=== PATIENT | female | born 1945 | race Caucasian/White ===

== ENCOUNTER → 2017-12-22 06:23 | Outpatient (CLI) | payer MEDICARE, SELFPAY ==
--- NOTE | 2017-12-22 06:26 | ECHOD_ITS ---
Reason For Study: Chest Pain Procedure This was a 2D Doppler, Color Flow transthoracic echocardiogram. Exam performed in department. Left Ventricle Normal LV size. Left ventricular systolic function is normal. The estimated ejection fraction is 65 %. No evidence for diastolic dysfunction. No regional wall motion abnormalities noted. Right Ventricle Normal RV size. Normal systolic function. Atria Normal left atrium. Normal right atrium. Mitral Valve There is mild mitral annular calcification. Tricuspid Valve Normal tricuspid valve. Mild (1+) tricuspid valve insufficiency. Pulmonary artery systolic pressure is 25 mmHg. Aortic Valve Trisinus/trileaflet aortic valve. Mild focal aortic valve calcification. Mean aortic valve gradient 10 mmHg. Mild aortic stenosis. Mild (1+) aortic valve insufficiency. Pulmonic Valve The pulmonic valve is not well visualized. Great Vessels Normal aortic root. The pulmonary artery is normal size. Normal inferior vena cava. Pericardium/Pleural No pericardial effusion. MMode/2D Measurements & Calculations LVIDd: 4.5 cm IVSd: 0.77 cm LVOT diam: 2.0 cm LVIDs: 2.2 cm LVPWd: 0.95 cm LVOT area: 3.1 cm2 RVDd: 3.0 cm FS: 49.9 % Ao root diam: 3.1 cm LAV(MOD-bp): 46.6 ml LA A4 area: 17.5 cm2 LA dimension: 4.5 cm LAV(MOD-bp) Indexed: 26.3 ml/m2 LAV(MOD-sp2): 48.7 ml LAV(MOD-sp4): 44.6 ml RA A4 area: 15.1 cm2 Time Measurements MV dec time: 0.19 sec Doppler Measurements & Calculations MV E max doug: 119.2 cm/sec Lat Peak E' Doug: 7.6 cm/sec Med Peak E' Doug: 8.1 cm/sec MV A max doug: 83.0 cm/sec E/E' lat: 15.8 E/E' med: 14.8 MV E/A: 1.4 MV V2 max: 124.2 cm/sec MV P1/2t max doug: 124.2 cm/sec Ao V2 max: 229.3 cm/sec MV max P.2 mmHg MV P1/2t: 103.5 msec Ao max P.0 mmHg MV V2 mean: 71.6 cm/sec MV dec slope: 351.6 cm/sec2 Ao V2 mean: 144.3 cm/sec MV mean P.3 mmHg MVA(P1/2t): 2.1 cm2 Ao mean P.4 mmHg MV V2 VTI: 43.7 cm Ao V2 VTI: 50.4 cm MVA(VTI): 2.2 cm2 JOSE(I,D): 1.9 cm2 JOSE(V,D): 1.7 cm2 AI max doug: 409.6 cm/sec LV V1 max: 125.7 cm/sec SV(LVOT): 95.6 ml AI max P.3 mmHg LV V1 max P.3 mmHg AI dec slope: 223.3 cm/sec2 LV V1 mean P.2 mmHg AI P1/2t: 537.3 msec LV V1 mean: 84.8 cm/sec LV V1 VTI: 30.6 cm PA V2 max: 92.3 cm/sec TR max doug: 226.8 cm/sec TR max P.6 mmHg Interpretation Summary Normal LV size. Left ventricular systolic function is normal. The estimated ejection fraction is 65 %. There is mild mitral annular calcification. Mild (1+) aortic valve insufficiency. Mild aortic stenosis. No evidence for diastolic dysfunction. Ordering Physician: Deric Stephens Referring Physician: Namita Hassan Performed By: Philly Obregon, LISA, RVT
--- NOTE | 2017-12-22 18:41 | STRESSREP ---
Stress Test Report Pharmacologic myocardial perfusion stress test. 72-year-old lady with a history of chest pain. Medications Vasotec Humulin Lipitor Tenormin Lasix. Stress protocol: Resting EKG demonstrates sinus bradycardia with a rate of 55 bpm. Right bundle branch block is noted. 0.4 mg of regadenoson was infused per usual protocol followed by rapid intravenous saline flush injection. Continuous EKG monitoring was performed. The maximum heart rate attained was 81 bpm which was 54% of the maximum predicted heart rate the maximum workload attained was 1 metabolic equivalent. At rest there were no ST or T-wave changes noted suggest ischemia at peak infusion no ST or T-wave changes were noted suggest ischemia. No clinical angina was noted. Resting blood pressure is 120/68 which remained flat throughout the recording. Myocardial perfusion protocol. 11.8 mCi of technetium 99m sestamibi was injected at rest. 0.4 mg regadenoson was infused per usual protocol. At peak infusion 34.1 mCi of technetium 99m sestamibi was injected. Stress images were obtained. Stress and rest images were reconstructed and compared in the short axis vertical long and horizontal long axis. Gated images were also obtained pre- Perfusion SPECT analysis. Review of the images demonstrate normal uptake of tracer noted in all areas of the myocardium on the stress and rest images to a similar extent. No areas of reversibility were noted to suggest ischemia. Gated SPECT analysis: The gated ejection fraction was over 80%. Conclusion: Normal pharmacologic myocardial perfusion stress test. Preserved ejection fraction.
--- NOTE | 2018-02-28 20:32 | ED.RN ---
PATIENT LEFT BAG FULL OF MEDICATIONS ON BENCH OUTSIDE ER INFORMATION GAINED IN ATTEMPT TO CALL HER
== END ==
PROVIDERS: Family Provider Internal Medicine; PCP Internal Medicine; Visit Provider Internal Medicine Cardiovascular Disease
DX: I25.10 Atherosclerotic heart disease of native coronary artery without angina pectoris (principal)
CPT/HCPCS: 78452; 93017; 93306; A9500; A4216; J2785

== ENCOUNTER 2018-07-08 03:05 | Emergency (ER) | payer MEDICARE, SELFPAY ==
[2018-07-08 03:10] VITALS: BP 191/79; PULSE 63; RESP 12; TEMP 36.8; O2SAT 97; BMI 31.1
--- NOTE | 2018-07-08 03:21 | EKG12_ITS ---
Test Reason : Blood Pressure : / mmHG Vent. Rate : 060 BPM Atrial Rate : 060 BPM P-R Int : 200 ms QRS Dur : 126 ms QT Int : 452 ms P-R-T Axes : 071 -59 -03 degrees QTc Int : 452 ms Normal sinus rhythm Right bundle branch block Left anterior fascicular block Bifascicular block Cannot rule out Inferior infarct (masked by fascicular block?) , age undetermined Abnormal ECG Confirmed by JAZZY ZAMORA, JUDI ([id number]), design editor SAL RUIZ ([id number]) on 07/13/2018 9:22:29 AM Referred By: DINO Confirmed By:JUDI PURCELL MD
--- NOTE | 2018-07-08 03:26 | ED.DCSUM_ITS ---
History of Present Illness Chief Complaint: General Illness Informant: Patient, Family Onset: Days - 4-5 Context: Gradual Onset Current Severity: Moderate Maximum Severity: Moderate Worsened by: nothing Relieved by: nothing Associated Symptoms: hi BS, malaise, nausea, prod cough, constant CP, lightheaded Narrative: Patient states she has been feeling ill for the past for 5 days and has noticed that her blood sugars are climbing. She occasionally forgets her medications, and states that that might of been why her blood sugars are high starting for 5 days ago. - Past Medical History (1) Old myocardial infarction Status: Chronic (2) Hypertension Status: Chronic (3) Nonrheumatic aortic (valve) insufficiency Status: Chronic (4) Type 2 diabetes mellitus Status: Chronic Past Medical History - Allergies and Home Meds Allergies/Adverse Reactions: Allergies No Known Allergies Allergy (Verified 07/08/18 03:12) Primary Care Physician: Namita Hassan MD [Primary Care Provider] - 3-5 Days Lives: With Family Smoking Status: Never smoker Review of Systems General: Reports: Malaise. Denies: Chills, Fever, Sweats Eyes: Denies: Visual changes - bilaterally, Diplopia ENT: Denies: Rhinorrhea, Sore throat Cardiovascular: Reports: Chest pain. Denies: Palpitations Respiratory: Reports: Dyspnea - Occasionally, Cough, Sputum - White. Nonbloody.. Denies: Dyspnea on exertion, Orthopnea, Paroxysmal nocturnal dyspnea Gastrointestinal: Reports: Nausea. Denies: Abdominal pain, Vomiting, Diarrhea, Melena, Hematochezia Genitourinary: Reports: Frequency. Denies: Dysuria, Hematuria Musculoskeletal: Denies: Neck pain, Back pain, Swelling, Extremity Pain Skin: Denies: Rash Neurological: Denies: Headache, Weakness, Numbness Psych: Denies: Suicidal thoughts, Suicidal ideations Endocrine: Reports: Polyuria, Polydipsia. Denies: Heat intolerance, Cold intolerance Allergy: Denies: Uticaria, Swelling of the mouth Physical Exam Vital Signs/Narrative: Vital Signs Temp Pulse Resp BP Pulse Ox 07/08/18 03:10 98.2 F 63 12 191/79 H 97 Inital Vital Signs reviewed: Yes General: Well nourished, Well developed, Unkempt - Live bedbugs found on patient Head: Normocephalic, Atraumatic Eyes: Perrl, EOMI ENT: No rhinorrhea, Dry mucous membranes - Partially Neck: Supple, Nontender, No lymphadenopathy Cardiovascular: Regular rate, Regular rhythm, No murmurs Respiratory: No distress, CTA bilaterally, Chest nontender Abdomen: Soft, Nontender, Nondistended, Normal bowel sounds Back: Nontender, Normal Inspection Extremities: Nontender, No edema Skin: Normal color, No rash Neurological: Alert, Oriented x3, Cranial nerves II-XII grossly intact, Normal Strength, Normal Sensation, Normal Gait Psychological: Normal affect Diagnostic/Tx/Re-eval Impressions Chest X-Ray 07/08/18 04:00 IMPRESSION: No acute pulmonary findings. Electronically Signed: Mihai Lemos MD at 5:50 EDT Tel , Service support , 07/08/18 04:00 Chest 1 View (Portable) [RAD] Stat Laboratory Results 07/08/18 07/08/18 07/08/18 Range/Units 03:40 03:40 04:29 WBC 7.9 (4.4-11.0) K/mm3 RBC 4.27 (4.2-5.4) M/mm3 Hgb 11.3 L (12.0-15.0) g/dl Hct 36.1 L (37-47) % MCV 84.5 (81-99) fL MCH 26.5 L (27.0-32.0) pg MCHC 31.3 L (32-36) g/gl RDW 14.5 (11.6-14.6) % RDW Differential 44.9 H (35.1-43.9) fl Plt Count 302 (150-450) K/mm3 MPV 10.2 (6.2-12.0) fl Immature Gran % (Auto) 0.100 (0.0-0.9) % Neut % (Auto) 69.2 (47-70) % Lymph % (Auto) 20.7 (19-41) % [place] % (Auto) 6.9 (0-10) % Eos % (Auto) 2.8 (0-5) % Baso % (Auto) 0.3 (0-1) % Absolute Neuts (auto) 5.5 (2.0-7.7) X10^3/uL Absolute Lymphs (auto) 1.64 (0.83-4.51) X10^3/ul Total Counted Not Reportable Sodium 133 L (136-145) mmol/L Potassium 3.7 (3.5-5.1) mmol/L Chloride 97 L (98-107) mmol/L Carbon Dioxide 30.0 (21.0-32.0) mmol/L Anion Gap 6 (5-15) BUN 15 (7-18) mg/dL Creatinine 0.93 (0.55-1.02) mg/dL Estim Creat Clear Calc 40.65 ml/min Est GFR (MDRD) Af Amer 76 (>60) mL/min Est GFR (MDRD) Non-Af 63 (>60) mL/min BUN/Creatinine Ratio 16.1 (10-20) RATIO Glucose 377 H (74-106) mg/dL Calcium 9.7 (8.5-10.1) mg/dL Troponin I < 0.015 (<0.045) ng/mL Urine Color Yellow (Yellow) Urine Clarity Clear (Clear) Urine pH 6.0 (5.0 - 8.0) Ur Specific [place] 1.010 (1.002-1.030) Urine Protein Negative (Negative) mg/dl Urine Glucose (UA) 1000 H (Normal) mg/dl Urine Ketones Negative (Negative) mg/dl Urine Occult Blood Negative (Negative) /ul Urine Nitrite Negative (Negative) Urine Bilirubin Negative (Negative) mg/dL Urine Urobilinogen Normal (Normal) mg/dl Ur Leukocyte Esterase 100 H (Negative) /ul Urine RBC 0 SEEN (0-5) /hpf Urine WBC 5-10 SEEN (0-5) /hpf Ur Squamous Epith Cells 0-5 SEEN (5-10) /hpf Urine Bacteria 2+ (None Seen) /hpf Urine Mucus 0 SEEN (<or=2+) /hpf - Rhythm Strip Rhythm Strip: Sinus Rhythm Rate: 70 Ectopy: None - EKG Initial EKG Interpretation: Sinus Rhythm, No Acute Injury Pattern, RBBB, LAFB Prior: Changed - Compared with 03/01/2010, when patient had left anterior fascicular block and incomplete right bundle branch block, she has basically now completed her right bundle branch block. - Medical Decision Making EKG shows no acute injury, troponin negative with days of constant discomfort, this is noncardiac. She does have a productive cough, her chest x-ray shows no signs of pneumonia. Urinalysis shows 2+ bacteria, 100 leukocyte esterase, and 5 -10 white blood cells. It is possible this is indicative of acute infection, will send it for culture and treat her empirically. She was given an initial cephalexin here, as well as a liter of IV fluids and a dose of insulin lispro for her blood sugar of 377. After just the IV fluids, she is already feeling better. She is able to stand and walk without difficulty. During her observation, her blood pressures in the 190 range did come down to 152 systolic. Plan is to observe her and watch her blood sugars come down safely, and discharge her home with a prescription for cephalexin and close outpatient follow-up along with recheck of her blood pressure, which does not require emergency treatment. She and family are comfortable with this plan. ED Disposition - Plan for ED Patient: Disposition: Home or Assisted Living Chief Complaint: General Illness Diagnosis: Hyperglycemia due to type 2 diabetes mellitus, Chest pain, unspecified, Productive cough, Lower urinary tract infection, acute, HTN (hypertension) Instructions: ED Chest Pain Atypical Unkn Cause, ED Hyperglycemia Diabetic, ED UTI Cystitis Female Prescriptions: Cephalexin 500 mg PO TID #21 cap Referrals: Namita Hassan MD [Primary Care Provider] - 3-5 Days
[2018-07-08] MEDS: 0.9% Normal Saline 1,000 ML 999 ML IV (03:46)
[2018-07-08 03:51] LABS: Absolute Lymphocyte Count 1.64 X10^3/ul (0.83-4.51); Absolute Neutrophil Count 5.5 X10^3/uL (2.0-7.7); Basophil# 0.02 X10^3/uL; Basophil% 0.3 % (0-1); Eosinophil# 0.22 X10^3/uL; Eosinophils% 2.8 % (0-5); Hematocrit 36.1 % (37-47); Hemoglobin 11.3 g/dl (12.0-15.0); Lymphocyte # 1.64 X10^3/ul (4.0); Lymphocyte % 20.7 % (19-41); Mean Corp Hgb Conc 31.3 g/gl (32-36); Mean Corpuscular Hgb 26.5 pg (27.0-32.0); Mean Corpuscular Volume 84.5 fL (81-99); Mean Platelet Vol. 10.2 fl (6.2-12.0); Monocyte# 0.55 X10^3/uL; Monocyte% 6.9 % (0-10); Neutrophil # 5.48 X10^3/uL (2.7-7.7); Neutrophil % 69.2 % (47-70); Platelet Count 302 K/mm3 (150-450); RBC Distribution Width CV 14.5 % (11.6-14.6); RBC Distribution Width SD 44.9 fl (35.1-43.9); Red Blood Count 4.27 M/mm3 (4.2-5.4); White Blood Count 7.9 K/mm3 (4.4-11.0)
[2018-07-08 03:52] LABS: POSITIVE COUNT NO; POSITIVE DIFFERENTIAL NO; POSITIVE MORPHOLOGY NO
--- NOTE | 2018-07-08 04:00 | RAD_ITS ---
STUDY: X-RAY CHEST REASON FOR EXAM: Female, 73 years old. Cough TECHNIQUE: Single frontal view of the chest. COMPARISON: None. FINDINGS: The lungs are clear and expanded. There is no demonstrated pleural abnormality. Large cardiac silhouette. Normal mediastinum and maggie. Normal visualized pulmonary arteries. Normal visualized aortic arch and descending thoracic aorta. Normal visualized thoracic spine. Normal visualized ribs, clavicles, and shoulders. There is no demonstrated abnormality of the visualized soft tissue structures of the upper abdomen. RAD/Chest 1 View (Portable) IMPRESSION: No acute pulmonary findings. Electronically Signed: Mihai Lemos MD at 5:50 EDT Tel , Service support ,
[2018-07-08 04:10] LABS: Anion Gap 6 (5-15); BUN 15 mg/dL (7-18); BUN/Creat Ratio 16.1 RATIO (10-20); Calcium,Total 9.7 mg/dL (8.5-10.1); Chloride 97 mmol/L (98-107); Creatinine, Serum 0.93 mg/dL (0.55-1.02); EST Glomerular Filtration Rate 63 mL/min (>60); Est Glom Filt Rate - Afr Amer 76 mL/min (>60); Estimated Creatinine Clearance 40.65 ml/min; Glucose 377 mg/dL (74-106); Potassium 3.7 mmol/L (3.5-5.1); Sodium Level 133 mmol/L (136-145)
[2018-07-08 04:35] LABS: Mucous, Urine 0 SEEN /hpf (<or=2+); Red Blood Cells-Urine 0 SEEN /hpf (0-5)
[2018-07-08 04:37] LABS: Color, Urine Yellow (Yellow); Glucose, Dipstick 1000 mg/dl (Normal); Ketone-Dipstick Negative (Negative); Leukocyte Esterase-Dipstick 100 /ul (Negative); Nitrite-Dipstick Negative (Negative); Occult Blood-Urine Negative /ul (Negative); Protein-Dipstick Negative (Negative); Urine Bilirubin Dipstick Negative (Negative); Urine Clarity Clear (Clear); Urine Urobilinogen Normal (Normal)
[2018-07-08 04:46] LABS: Bacteria 2+ /hpf (None Seen); Squamous Epithelial Cells - UA 0-5 SEEN /hpf (5-10); White Blood Cells 5-10 SEEN /hpf (0-5)
[2018-07-08] MEDS: Insulin Lispro 100 UNIT/ML INSULN.PEN 12 UNIT SC (05:36)
[2018-07-08] MEDS: Cephalexin 250 MG Capsule 500 MG PO (05:36)
[2018-07-08 05:41] VITALS: BP 152/60; PULSE 60; RESP 18; O2SAT 96
[2018-07-08 06:02] VITALS: BP 137/75; PULSE 59; RESP 16
[2018-07-08 06:54] VITALS: BP 136/65; PULSE 78; RESP 18; O2SAT 96
[2018-07-08 06:55] LABS: Bedside Glucose 260 mg/dL (70-110)
== END 2018-07-08 06:54 | disposition home or self-care (01) ==
PROVIDERS: Emergency Provider Emergency Medicine; Family Provider Internal Medicine; PCP Internal Medicine
DX: E11.65 Type 2 diabetes mellitus with hyperglycemia (principal); N39.0 Urinary tract infection, site not specified; R07.9 Chest pain, unspecified; I10 Essential (primary) hypertension; R05 Cough; I25.2 Old myocardial infarction; I35.1 Nonrheumatic aortic (valve) insufficiency; Z79.4 Long term (current) use of insulin; Z79.899 Other long term (current) drug therapy
CPT/HCPCS: 71045; 80048; 81001; 82962; 84484; 85025; 87086; 87088; 87186; 93005; 96360; 96361; 99285; J7030; A4216

== ENCOUNTER 2019-01-20 22:34 | Emergency (ER) | payer MEDICARE, SELFPAY ==
[2019-01-20 22:35] VITALS: BP 173/60; PULSE 81; RESP 12; TEMP 36.9; O2SAT 96; BMI 36.1
--- NOTE | 2019-01-20 22:36 | EKG12_ITS ---
Test Reason : CP Blood Pressure : / mmHG Vent. Rate : 064 BPM Atrial Rate : 064 BPM P-R Int : 198 ms QRS Dur : 128 ms QT Int : 420 ms P-R-T Axes : 075 -46 026 degrees QTc Int : 433 ms Normal sinus rhythm Right bundle branch block Left anterior fascicular block Bifascicular block Abnormal ECG When compared with ECG of 08-JUL-2018 06:02, Minimal criteria for Inferior infarct are no longer Present Confirmed by JUDI PURCELL MD ([id number]), book or script editor SAL RUIZ ([id number]) on 02/01/2019 2:04:23 PM Referred By: TIARA Confirmed By:JUDI PURCELL MD
--- NOTE | 2019-01-20 22:36 | RAD_ITS ---
STUDY: X-RAY CHEST REASON FOR EXAM: Female, 73 years old. Chest pain TECHNIQUE: Single frontal view of the chest. COMPARISON: None. FINDINGS: The lungs are clear and expanded. There is no demonstrated pleural abnormality. Normal size heart. Normal mediastinum and maggie. Normal visualized pulmonary arteries. Normal visualized aortic arch and descending thoracic aorta. Normal visualized thoracic spine. Remote left rib trauma. There is no demonstrated abnormality of the visualized soft tissue structures of the upper abdomen. RAD/Chest 1 View (Portable) IMPRESSION: No acute pulmonary findings. Electronically Signed: Mihai Lemos MD at 22:56 EDT Tel , Service support ,
[2019-01-20 22:41] VITALS: O2SAT 96
--- NOTE | 2019-01-20 22:43 | ED.VIS.GEN ---
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 She states when she had her [place] 8 years ago it felt as if a truck was on her chest. And the discomfort was associated with shortness of breath diaphoresis and radiation. She denies history of PE or DVT. She denies leg pain, swelling discoloration. Prior similar symptoms: No Recent Illness/Hospitalization: No - Past Medical History (1) Hypercholesterolemia Status: Chronic (2) Essential hypertension Status: Chronic (3) Nonrheumatic aortic (valve) insufficiency Status: Chronic (4) Old myocardial infarction Status: Chronic (5) Type 2 diabetes mellitus Status: Chronic Past Medical History - Allergies and Home Meds Allergies/Adverse Reactions: Allergies No Known Allergies Allergy (Verified 01/20/19 22:40) Primary Care Physician: Namita Hassan MD [Primary Care Provider] - Surgical History: cholecystectomy, - - Cardiac catheterization, angioplasty and stent Smoking Status: Never smoker Alcohol: None Review of Systems General: Denies: Chills, Fever, Sweats Eyes: Denies: Visual changes - bilaterally, Diplopia ENT: Denies: Rhinorrhea, Sore throat Cardiovascular: Reports: Chest pain. Denies: Palpitations, Heart racing Respiratory: Denies: Dyspnea, Cough, Dyspnea on exertion, Orthopnea, Paroxysmal nocturnal dyspnea Gastrointestinal: Denies: Abdominal pain, Nausea, Vomiting, Diarrhea, Melena, Hematochezia Genitourinary: Denies: Dysuria, Hematuria, Frequency Musculoskeletal: Denies: Back pain, Extremity Pain Skin: Denies: Rash, Wounds Neurological: Denies: Headache, Weakness, Numbness Endocrine: Denies: Polyuria, Polydipsia Allergy: Denies: Uticaria Physical Exam Vital Signs/Narrative: Vital Signs Temp Pulse Resp BP Pulse Ox 01/20/19 22:35 98.4 F 81 12 173/60 H 96 Inital Vital Signs reviewed: Yes General: Well nourished, Well developed, Obese, Unkempt, No Acute Distress Head: Normocephalic, Atraumatic Eyes: Perrl, EOMI ENT: Moist mucous membranes, No rhinorrhea Neck: Supple, Nontender, No lymphadenopathy, No JVD Cardiovascular: Regular rate, Regular rhythm, No murmurs, Normal S1, Normal S2 Respiratory: No distress, CTA bilaterally, Chest nontender Abdomen: Soft, Nontender, Nondistended, Normal bowel sounds, No masses Back: Nontender, Normal Inspection Extremities: Nontender, No edema Skin: Normal color, No rash, - - Lower extremity skin exam is remarkable for bedbugs bites Neurological: Alert, Oriented x3, Cranial nerves II-XII grossly intact, Normal Strength, Normal Sensation Psychological: Normal affect, Normal Mood Diagnostic/Tx/Re-eval - Rhythm Strip Rhythm Strip: Sinus Rhythm Rate: 78 Ectopy: None - EKG Initial EKG Interpretation: Sinus Rhythm, RBBB - Ventricular rate 64. There is evidence of right bundle branch block and left anterior fascicular block. CO interval is 190 ms. QRS duration prolonged at 128 ms. QT interval is normal. Prior: Unchanged - EKG dated July 08, 2018 - Medical Decision Making Patient with atypical chest pain. Will obtain EKG, chest x-ray and blood work to determine if this is cardiac versus noncardiac etiology. Patient received 8 units of regular insulin subcu for elevated blood sugar. Since this pain is different and has had pain throughout the day with normal workup will discharge to home. ED Disposition - Plan for ED Patient: Disposition: Home or Assisted Living Diagnosis: Central chest pain, Hyperglycemia due to type 1 diabetes mellitus Instructions: ED Chest Pain Atypical Unkn Cause Referrals: Namita Hassan MD [Primary Care Provider] - 3-5 Days
[2019-01-20 22:53] LABS: Absolute Lymphocyte Count 2.36 X10^3/ul (0.83-4.51); Absolute Neutrophil Count 5.3 X10^3/uL (2.0-7.7); Basophil# 0.03 X10^3/uL; Basophil% 0.3 % (0-1); Eosinophil# 0.23 X10^3/uL; Eosinophils% 2.7 % (0-5); Hematocrit 32.5 % (37-47); Hemoglobin 10.3 g/dl (12.0-15.0); Lymphocyte # 2.36 X10^3/ul (4.0); Lymphocyte % 27.3 % (19-41); Mean Corp Hgb Conc 31.7 g/gl (32-36); Mean Corpuscular Hgb 26.5 pg (27.0-32.0); Mean Corpuscular Volume 83.8 fL (81-99); Mean Platelet Vol. 10.5 fl (6.2-12.0); Monocyte# 0.68 X10^3/uL; Monocyte% 7.9 % (0-10); Neutrophil # 5.34 X10^3/uL (2.7-7.7); Neutrophil % 61.6 % (47-70); Platelet Count 282 K/mm3 (150-450); RBC Distribution Width CV 15.4 % (11.6-14.6); RBC Distribution Width SD 47.1 fl (35.1-43.9); Red Blood Count 3.88 M/mm3 (4.2-5.4); White Blood Count 8.7 K/mm3 (4.4-11.0)
[2019-01-20 22:55] LABS: POSITIVE COUNT NO; POSITIVE DIFFERENTIAL NO; POSITIVE MORPHOLOGY NO
[2019-01-20 23:08] LABS: Anion Gap 6 (5-15); BUN 16 mg/dL (7-18); BUN/Creat Ratio 17.3 RATIO (10-20); Calcium,Total 9.2 mg/dL (8.5-10.1); Chloride 100 mmol/L (98-107); Creatinine, Serum 0.93 mg/dL (0.55-1.02); EST Glomerular Filtration Rate 63 mL/min (>60); Est Glom Filt Rate - Afr Amer 76 mL/min (>60); Glucose 326 mg/dL (74-106); Potassium 3.9 mmol/L (3.5-5.1); Sodium Level 133 mmol/L (136-145)
[2019-01-20 23:56] VITALS: BP 128/79; PULSE 71; RESP 18; O2SAT 94
[2019-01-20] MEDS: Insulin Lispro 100 UNIT/ML INSULN.PEN 8 UNIT SC (23:57)
== END 2019-01-20 23:58 | disposition home or self-care (01) ==
PROVIDERS: Emergency Provider Emergency Medicine; Family Provider Internal Medicine; PCP Internal Medicine
DX: R07.9 Chest pain, unspecified (principal); E10.65 Type 1 diabetes mellitus with hyperglycemia; I10 Essential (primary) hypertension; I25.2 Old myocardial infarction; E66.9 Obesity, unspecified
CPT/HCPCS: 71045; 80048; 84484; 85025; 93005; 99285; J7030; A4216

== ENCOUNTER 2020-07-19 12:50 | Emergency (ER) | payer MEDICARE, SELFPAY ==
[2020-07-19 12:51] VITALS: BP 149/69; PULSE 69; RESP 16; TEMP 36.5; O2SAT 100; BMI 35.2
--- NOTE | 2020-07-19 13:21 | ED.VISSUMM ---
- ER Visit Summary Date of Service: 07/19/20 Chief Complaint: Left neck pain History of Present Illness: The patient is a 75 F history of stroke, prior DE, insulin-dependent diabetes and hypertension. Patient states she is been doing exercises for her neck for the last 2 weeks. States yesterday she developed gradual onset of left-sided neck pain worse with movement worse with turning her head to the left. Also complains of left ear pain. Denies any fever or chills. No cough. Denies any trauma. Physical Examination: Well-appearing elderly female. No acute distress. Vital signs are stable afebrile. H EENT exam unremarkable. Posterior pharynx normal. Left TM normal. The ear itself is unremarkable. The canal is normal. There is no redness around the ear. Neck no axillary lymphadenopathy. Trachea midline. No meningismus. She does have tenderness along her posterior neck musculature consistent with a myofascial strain. C-spine is nontender. Lungs clear to auscultation. Heart regular rhythm. No murmur. Abdomen soft nontender. Remedies moves all 4. She does have weakness in the left upper and lower extremity from prior stroke that is not new. Neurologically she is awake and alert with the left upper and lower extremity weakness compared to the right from prior stroke. Test Results: BGT equals 338. Emergency Department Course and Treatment: Patient's history and exam are consistent with a myofascial strain of her neck. It is reproducibly tender over the left posterior neck muscles. I will obtain a BG T. Treatment Plan: Hot shower warm bath. Massage. Tylenol Motrin for pain. Follow-up if not improving. Disposition: discharge Impression: Acute left posterior neck muscle strain Acute hyper glycemia History of insulin-dependent diabetes History of CAD and DE and prior stroke This note was generated with Tribot[employer] software. It may contain incorrect words, spelling, and punctuation that were not noted in review of the chart prior to signing ED Disposition - Plan for ED Patient: Disposition: Home or Assisted Living Instructions: ED Sprain Strain Neck Referrals: Namita Hassan MD [Primary Care Provider] - 1 Week if not improving Additional Instructions: Strained muscle in your neck. Hot shower, warm bath. Massage. This should progressively improve. Tylenol and limited Motrin for pain and inflammation. Follow-up with your doctor if not improving.
--- NOTE | 2020-07-19 13:25 | ED.DEP ---
ED Disposition - Plan for ED Patient: Disposition: Home or Assisted Living Instructions: ED Sprain Strain Neck Referrals: Namita Hassan MD [Primary Care Provider] - 1 Week if not improving Additional Instructions: Strained muscle in your neck. Hot shower, warm bath. Massage. This should progressively improve. Tylenol and limited Motrin for pain and inflammation. Follow-up with your doctor if not improving.
[2020-07-19 13:32] VITALS: RESP 18
[2020-07-19] MEDS: Acetaminophen 500 MG Tablet 1000 MG PO (13:32)
[2020-07-19 13:40] LABS: Bedside Glucose 338 mg/dL (70-110)
== END 2020-07-19 13:37 | disposition home or self-care (01) ==
LOC: ED 13:29
PROVIDERS: Emergency Provider Emergency Medicine; PCP Internal Medicine
DX: S16.1XXA Strain of muscle, fascia and tendon at neck level, initial encounter (principal); E10.65 Type 1 diabetes mellitus with hyperglycemia; I25.10 Atherosclerotic heart disease of native coronary artery without angina pectoris; I25.2 Old myocardial infarction; Z79.4 Long term (current) use of insulin; Z86.73 Personal history of transient ischemic attack (TIA), and cerebral infarction without residual deficits; X58.XXXA Exposure to other specified factors, initial encounter
CPT/HCPCS: 82962; 99283

== ENCOUNTER → 2022-11-03 | Outpatient (CLI) | payer MEDICARE, SELFPAY ==
[2022-11-03] MEDS: Acetaminophen 325 MG Tablet 650 MG PO (10:29)
[2022-11-03] MEDS: DiphenhydrAMINE 25 MG Capsule 50 MG PO (10:29)
[2022-11-03] MEDS: 0.9% NaCl Peripheral Flush Adult/Peds IV (10:33)
[2022-11-03 10:43] VITALS: BP 134/54; PULSE 48; TEMP 36
[2022-11-03 11:06] VITALS: BP 141/51; PULSE 53; TEMP 36.1
[2022-11-03 12:04] VITALS: BP 159/76; PULSE 52; RESP 16; TEMP 36.1; O2SAT 97
[2022-11-03 13:29] VITALS: BP 148/59; PULSE 53; RESP 16; TEMP 36.1
[2022-11-03 14:33] VITALS: BP 185/71; PULSE 43; TEMP 36
[2022-11-03 15:22] VITALS: BP 163/62; PULSE 43; TEMP 36.2
== END | disposition home or self-care (01) ==
PROVIDERS: PCP Internal Medicine; Referring Provider Clinical Nurse Specialist; Visit Provider Clinical Nurse Specialist
DX: D64.9 Anemia, unspecified (principal)
CPT/HCPCS: 36415; 36430; 86850; 86900; 86901; 86920; 86922; J7040; J7050; P9016; A4216

== ENCOUNTER 2023-05-01 10:09 | Observation (INO) | payer MEDICARE, SELFPAY ==
[2023-05-01 10:11] VITALS: BP 123/67; PULSE 54; RESP 18; TEMP 35.7; O2SAT 94
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
[2023-05-01 10:38] LABS: Bedside Glucose 190 mg/dL (74-106)
--- NOTE | 2023-05-01 11:04 | EX.ED.DYSGE1 ---
HPI <LUKASZ Toure - Last Filed: 05/01/23 12:24> History of Present Illness Chief Complaint: Weakness Narrative Narrative: 77-year-old female presents because she is unable to take care of herself at home. Her son lives with her and helps her with all her ADLs because she is unable to walk from a previous stroke. Her son was admitted to the hospital yesterday and since then she has not been able to get up or feed herself. She is in wheelchair and her son usually lifts her onto the toilet and into the bath etc. She was brought in by EMS and spoke with social work to see if she can be admitted to a custodial. She has no acute medical complaints. She does have a history of high blood pressure, diabetes, PA, and stroke. [facility] <LUKASZ Toure - Last Filed: 05/01/23 12:24> [facility] Medical History (Updated 05/01/23 @ 12:[address] Chapo Cason MD) Atherosclerotic heart disease of [place] coronary artery without angina pectoris Atypical chest pain CVA (cerebral vascular accident) Dementia Diverticulosis Essential hypertension GERD (gastroesophageal reflux disease) Nonrheumatic aortic (valve) insufficiency Old myocardial infarction Polyneuropathy SOB (shortness of breath) Type 2 diabetes mellitus Home Medications atenolol 25 mg tablet 25 mg PO BID 12/01/17 [History Last Taken Unknown] atorvastatin 40 mg tablet 40 mg PO QDAY 12/01/17 [History Last Taken Unknown] donepezil 5 mg tablet 5 mg PO QHS 12/01/17 [History Last Taken Unknown] enalapril maleate 10 mg tablet 10 mg PO .COMPLEX 12/01/17 [History Last Taken Unknown] furosemide 20 mg tablet 20 mg PO QDAY 12/01/17 [History Last Taken Unknown] hydrochlorothiazide 25 mg tablet 25 mg PO QAM 12/01/17 [History Last Taken Unknown] clopidogrel 75 mg tablet 75 mg PO QDAY 01/14/18 [History Last Taken Unknown] nitroglycerin 0.4 mg sublingual tablet 0.4 mg sublingual Q5M PRN chest pain #25 tabs 01/14/18 [Rx Last Taken Unknown] aspirin 81 mg tablet,delayed release 81 mg PO DAILY 08/21/20 [History Last Taken Unknown] insulin glargine 100 unit/mL (3 mL) subcutaneous pen (Lantus Solostar U-100 Insulin) 18 unit subcut DIRECTED 08/21/20 [History Last Taken Unknown] pioglitazone 30 mg tablet 30 mg PO DAILY 08/21/20 [History Last Taken Unknown] Allergy/AdvReac Type Severity Reaction Status Date / Time No Known Allergies Allergy Verified 05/01/23 10:10 Family History Mother Diabetes Son Heart disease Myocardial infarction Daughter Diabetes Daughter Diabetes Surgical History History of breast biopsy History of cardiac catheterization History of cholecystectomy History of colonoscopy (~2010) History of esophagogastroduodenoscopy (EGD) (~2001) Social History (Updated 08/21/20 @ 08:[address] Marlon Suarez MD) Smoking Status: Never smoker alcohol intake: never substance use type: does not use caffeine: Yes Type: coffee Number of servings: 4 what type of physical activity do you participate in: none seatbelt use: always do you feel safe at home: Yes ROS <LUKASZ Toure - Last Filed: 05/01/23 12:24> ROS ED ROS Narrative Constitutional: Negative for fever, chills, malaise. CVS: Negative for palpitations, chest pain. Respiratory: Negative for shortness of breath, cough. GI: Negative for abdominal pain, nausea, vomiting. EXAM <LUKASZ Toure - Last Filed: 05/01/23 12:24> Physical Exam Narrative Exam Narrative: CONST: Patient sitting in no acute distress. EYES: Normal inspection. NECK: Normal inspection. RESP: No respiratory distress, CTAB. CVS: Regular rate and rhythm, no murmur, no gallop. SKIN: Color normal, no rash, warm, dry, intact. EXTREMITIES: Normal appearance, no pedal edema. NEURO: Oriented x4. PSYCH: Normal affect. Const Vital Signs: 05/01/23 10:11 05/01/23 10:13 Temperature 96.2 F L Temperature Source Temporal Pulse Rate 54 L Respiratory Rate 18 Respiratory Effort Normal Non-Labored Respiratory Pattern Normal Blood Pressure 123/67 H Blood Pressure Mean 85 Pulse Ox 94 Oxygen Delivery Method Room Air <Dr. Chapo Cason MD - Last Filed: 05/01/23 12:27> Physical Exam Const Vital Signs: 05/01/23 10:11 05/01/23 10:13 Temperature 96.2 F L Temperature Source Temporal Pulse Rate 54 L Respiratory Rate 18 Respiratory Effort Normal Non-Labored Respiratory Pattern Normal Blood Pressure 123/67 H Blood Pressure Mean 85 Pulse Ox 94 Oxygen Delivery Method Room Air MDM <LUKASZ Toure - Last Filed: 05/01/23 12:24> [facility] Narrative Medical decision making narrative: Labs show normal white count of 8.9, hemoglobin of 8.8. She has been anemic in the past has no acute bleeding issues. Sodium is 133, creatinine 1.85 (previously 0.93 several years ago). She has had decreased p.o. intake over the last day because she was unable to get up so this may represent an AVELINO and I gave her a liter of fluids. Glucose is 271 with normal CO2 and anion gap. Case was discussed with social work who states patient needs admitted for placement. Case discussed with the hospitalist. Lab Data Attestation: I reviewed the patient's lab results. Labs: Laboratory Results - last 24 hr 05/01/23 05/01/23 10:19 11:42 WBC 8.9 RBC 3.91 L Hgb 8.8 L Hct 29.4 L MCV 75.2 L MCH 22.5 L MCHC 29.9 L RDW Std Deviation 56.7 H RDW Coeff of Deep 21.2 H Plt Count 364 MPV 10.6 Immature Gran % (Auto) 0.300 Neut % (Auto) 81.5 H Lymph % (Auto) 10.1 L [place] % (Auto) 6.3 Eos % (Auto) 1.2 Baso % (Auto) 0.6 Absolute Neuts (auto) 7.2 Absolute Lymphs (auto) 0.90 Nucleated RBC % 0 Sodium 133 L Potassium 4.5 Chloride 99 Carbon Dioxide 26.0 Anion Gap 8 BUN 73 H Creatinine 1.85 H Est GFR (MDRD) Af Amer 34 L Est GFR (MDRD) Non-Af 28 L BUN/Creatinine Ratio 39.5 H Glucose 271 H Calcium 10.3 H POC Glucose 190 H <Dr. Chapo Cason MD - Last Filed: 05/01/23 12:27> [facility] Narrative Medical decision making narrative: Labs show normal white count of 8.9, hemoglobin of 8.8. She has been anemic in the past has no acute bleeding issues. Sodium is 133, creatinine 1.85 (previously 0.93 several years ago). She has had decreased p.o. intake over the last day because she was unable to get up so this may represent an AVELINO and I gave her a liter of fluids. Glucose is 271 with normal CO2 and anion gap. Case was discussed with social work who states patient needs admitted for placement. Case discussed with the hospitalist. I have personally performed a face to face assessment of the patient and have reviewed the TONA Note. I performed a substantive portion of the visit including all aspects of the following. My walsh findings include: History is 77-year-old female whose son typically cares for at home. Son has been hospitalized. She is unable to make it at home herself. Came in for custodial placement. Exam is [well-appearing 77-year-old female. Vital signs are stable and afebrile. She does not look septic or toxic. HEENT exam unremarkable. Lungs clear. Heart regular rhythm. Rate about 55. Chest wall nontender. Abdomen soft nontender. Moving all 4 extremities. Calves are nontender without edema. She is awake and alert. Answering questions and following commands.] Medical Decision Making [77-year-old failure to thrive. Hospitalization for custodial placement. We have already spoken to the hospitalist.] Other additions or changes: [None] Lab Data Lab results narrative: CBC shows a white count 8.9. H&H of 8.8 and 29.4 and she has a history of chronic anemia. Platelets 364. Electrolytes show sodium 133. Gap of 8. BUN of 73 and creatinine 1.85 consistent with dehydration. She was treated with a liter normal saline. Glucose 271. History of diabetes. Labs: Laboratory Results - last 24 hr 05/01/23 05/01/23 10:19 11:42 WBC 8.9 RBC 3.91 L Hgb 8.8 L Hct 29.4 L MCV 75.2 L MCH 22.5 L MCHC 29.9 L RDW Std Deviation 56.7 H RDW Coeff of Deep 21.2 H Plt Count 364 MPV 10.6 Immature Gran % (Auto) 0.300 Neut % (Auto) 81.5 H Lymph % (Auto) 10.1 L [place] % (Auto) 6.3 Eos % (Auto) 1.2 Baso % (Auto) 0.6 Absolute Neuts (auto) 7.2 Absolute Lymphs (auto) 0.90 Nucleated RBC % 0 Sodium 133 L Potassium 4.5 Chloride 99 Carbon Dioxide 26.0 Anion Gap 8 BUN 73 H Creatinine 1.85 H Est GFR (MDRD) Af Amer 34 L Est GFR (MDRD) Non-Af 28 L BUN/Creatinine Ratio 39.5 H Glucose 271 H Calcium 10.3 H POC Glucose 190 H Discharge Plan Triage Chief Complaint: Weakness ED Midlevel Provider: Chelsey Kaminski ED Provider: Chapo Cason Dx/Rx/DC Orders Clinical Impression: Creatinine elevation, Inability to walk, Acute kidney injury, Acute dehydration, Adult failure to thrive Prescriptions: No Action atorvastatin 40 mg tablet 40 mg PO QDAY hydrochlorothiazide 25 mg tablet 25 mg PO QAM donepezil 5 mg tablet 5 mg PO QHS furosemide 20 mg tablet 20 mg PO QDAY atenolol 25 mg tablet 25 mg PO BID enalapril maleate 10 mg tablet 10 mg PO .COMPLEX Patient Comments: 10 mg PO 2 tablets every morning and 1 tablet in the evening Rx Instructions: 10 mg PO 2 tablets every morning and 1 tablet in the evening clopidogrel 75 mg tablet 75 mg PO QDAY nitroglycerin 0.4 mg tablet, sublingual 0.4 mg SUBLINGUAL Q5M PRN (Reason: chest pain) Qty: 25 3RF pioglitazone 30 mg tablet 30 mg PO DAILY Lantus Solostar U-100 Insulin 100 unit/mL (3 mL) insulin pen 18 unit SC DIRECTED Patient Comments: 20 UNITS aspirin 81 mg tablet,delayed release (DR/EC) 81 mg PO DAILY Primary Care Provider: Namita Hassan Referrals: Namita Hassan MD [Primary Care Provider] -
[2023-05-01 11:55] LABS: Absolute Neutrophil Count 7.2 X10^3/uL (2.0-7.7); Basophil# 0.05 X10^3/uL; Basophil% 0.6 % (0-1); Eosinophil# 0.11 X10^3/uL; Eosinophils% 1.2 % (0-5); Hematocrit 29.4 % (37-47); Hemoglobin 8.8 g/dL (12.0-15.0); Lymphocyte % 10.1 % (19-41); Mean Corp Hgb Conc 29.9 g/dL (32-36); Mean Corpuscular Hgb 22.5 pg (27.0-32.0); Mean Corpuscular Volume 75.2 fL (81-99); Mean Platelet Vol. 10.6 fl (6.2-12.0); Monocyte# 0.56 X10^3/uL; Monocyte% 6.3 % (0-10); NRBC Flagged by Analyzer 0 % (0-5); Neutrophil # 7.22 X10^3/uL (2.7-7.7); Neutrophil % 81.5 % (47-70); POSITIVE MORPHOLOGY YES; Platelet Count 364 K/mm3 (150-450); RBC Distribution Width CV 21.2 % (11.6-14.6); RBC Distribution Width SD 56.7 fl (35.1-43.9); Red Blood Count 3.91 M/mm3 (4.2-5.4); White Blood Count 8.9 K/mm3 (4.4-11.0)
[2023-05-01 11:56] LABS: Differential Indicated SCAN CRITERIA MET
[2023-05-01 12:06] LABS: Anion Gap 8 (5-15); BUN 73 mg/dL (7-18); BUN/Creat Ratio 39.5 RATIO (10-20); Calcium,Total 10.3 mg/dL (8.5-10.1); Chloride 99 mmol/L (98-107); Creatinine, Serum 1.85 mg/dL (0.55-1.02); EST Glomerular Filtration Rate 28 mL/min (>60); Est Glom Filt Rate - Afr Amer 34 mL/min (>60); Glucose 271 mg/dL (74-106); Potassium 4.5 mmol/L (3.5-5.1); Sodium Level 133 mmol/L (136-145)
--- NOTE | 2023-05-01 12:23 | NURSING ---
DR DELORIS CRUZ
--- NOTE | 2023-05-01 12:40 | HP.PCM.HOS_ITS ---
HPI - General General Date of Service: 05/01/23 Chief Complaint: debility., HPI Narrative VANIA ANN, is a 77 F who presents with her son who presented to with medical issues. Patient is, at baseline, wheelchair-bound and dependent on her son to help her with ADLs. He was hospitalized and she came along with him. Patient was showered up in the emergency room got cleaned up. She is unable to go home because of her baseline debility and the fact she lives by herself. [facility] Medical History (Updated 05/01/23 @ 12:[address] Milad Silva, DO) Atherosclerotic heart disease of [place] coronary artery without angina pectoris Atypical chest pain CVA (cerebral vascular accident) Dementia Diverticulosis Essential hypertension GERD (gastroesophageal reflux disease) Nonrheumatic aortic (valve) insufficiency Old myocardial infarction Polyneuropathy SOB (shortness of breath) Type 2 diabetes mellitus Home Medications atenolol 25 mg tablet 25 mg PO BID 12/01/17 [History Last Taken Unknown] atorvastatin 40 mg tablet 40 mg PO QDAY 12/01/17 [History Last Taken Unknown] donepezil 5 mg tablet 5 mg PO QHS 12/01/17 [History Last Taken Unknown] enalapril maleate 10 mg tablet 10 mg PO .COMPLEX 12/01/17 [History Last Taken Unknown] furosemide 20 mg tablet 20 mg PO QDAY 12/01/17 [History Last Taken Unknown] hydrochlorothiazide 25 mg tablet 25 mg PO QAM 12/01/17 [History Last Taken Unknown] clopidogrel 75 mg tablet 75 mg PO QDAY 01/14/18 [History Last Taken Unknown] nitroglycerin 0.4 mg sublingual tablet 0.4 mg sublingual Q5M PRN chest pain #25 tabs 01/14/18 [Rx Last Taken Unknown] aspirin 81 mg tablet,delayed release 81 mg PO DAILY 08/21/20 [History Last Taken Unknown] insulin glargine 100 unit/mL (3 mL) subcutaneous pen (Lantus Solostar U-100 Insulin) 18 unit subcut DIRECTED 08/21/20 [History Last Taken Unknown] pioglitazone 30 mg tablet 30 mg PO DAILY 08/21/20 [History Last Taken Unknown] Allergy/AdvReac Type Severity Reaction Status Date / Time No Known Allergies Allergy Verified 05/01/23 10:10 Family History Mother Diabetes Son Heart disease Myocardial infarction Daughter Diabetes Daughter Diabetes Surgical History History of breast biopsy History of cardiac catheterization History of cholecystectomy History of colonoscopy (~2010) History of esophagogastroduodenoscopy (EGD) (~2001) Social History Smoking Status: Never smoker alcohol intake: never substance use type: does not use caffeine: Yes Type: coffee Number of servings: 4 what type of physical activity do you participate in: none seatbelt use: always do you feel safe at home: Yes ROS ROS Narrative All review of systems were negative except as mentioned above in the history of present illness and the other review of systems. Vital Signs Vital Signs Vital Signs: 05/01/23 10:11 05/01/23 10:13 Temperature 35.7 C L Temperature Source Temporal Pulse Rate 54 L Respiratory Rate 18 Respiratory Effort Normal Non-Labored Respiratory Pattern Normal Blood Pressure 123/67 H Blood Pressure Mean 85 Pulse Ox 94 Oxygen Delivery Method Room Air Physical Exam Const Constitutional Narrative: Praful appearance. HEENT HEENT Narrative: Facial hair. Resp normal respiratory effort, no retractions, no use of accessory muscles and clear to auscultation bilaterally Cardio regular rate, regular rhythm, S1 normal heart sound and S2 normal heart sound GI normal to inspection, nondistended, normoactive bowel sounds, soft to palpation and non-tender Results Lab / Micro Data 05/01/23 11:42 05/01/23 11:42 Labs: Laboratory Results - last 24 hr 05/01/23 10:19: POC Glucose 190 H 05/01/23 11:42: WBC 8.9, RBC 3.91 L, Hgb 8.8 L, Hct 29.4 L, MCV 75.2 L, MCH 22.5 L, MCHC 29.9 L, RDW Std Deviation 56.7 H, RDW Coeff of Deep 21.2 H, Plt Count 364, MPV 10.6, Immature Gran % (Auto) 0.300, Neut % (Auto) 81.5 H, Lymph % (Auto) 10.1 L, [facility] % (Auto) 6.3, Eos % (Auto) 1.2, Baso % (Auto) 0.6, Absolute Neuts (auto) 7.2, Absolute Lymphs (auto) 0.90, Nucleated RBC % 0, Sodium 133 L, Potassium 4.5, Chloride 99, Carbon Dioxide 26.0, Anion Gap 8, BUN 73 H, Creatinine 1.85 H, Est GFR (MDRD) Af Amer 34 L, Est GFR (MDRD) Non-Af 28 L, BUN/Creatinine Ratio 39.5 H, Glucose 271 H, Calcium 10.3 H Assessment & Plan Assessment/Plan (1) Debility: PLAN: Baseline poor performance status and is dependent on her son to help her with ADLs. Her son is currently hospitalized. It is unclear the patient's son will even be able to go home from the hospital. PT and OT evaluate and treat. I do not feel that patient has anything that is acutely rehab whole as this is been more of a chronic process for her. Patient brought under observation status with expected hospitalization exceeding several days given the timing and awaiting on placement. There is no medical necessity for her hospitalization PLAN: Plan Chronic conditions * Anemia: Macrocytic. Check iron, ferritin, B12 and folate and TSH. * Diabetes mellitus type 2: Continue with glargine. Sliding scale insulin * Hypertension: Hold off on the furosemide and HCTZ for now. * History of stroke: Continue with aspirin, clopidogrel and atorvastatin * Coronary artery disease: Continue with aspirin clopidogrel and atorvastatin. VTE prophylaxis not indicated as patient is observation status. Charges/Coding Visit Charges Inpatient E&M: 37446 Init Hosp L2
[2023-05-01 12:52] LABS: Anisocytosis 2+; Hypochromasia 1+; Macrocytosis 1+; Microcytosis 1+; Platelet Estimate SLT INC (ADEQ)
[2023-05-01 12:53] LABS: Acanthocytes 1+; Ovalocyte 1+
[2023-05-01 13:13] LABS: Ferritin 21 ng/mL (8-252); Iron 60 ug/dL (50-170); Iron Binding Capacity,Total 492 ug/dL (250-450); PERCENT IRON SATURATION 12.2 % (15.0-55.0); Thyroid Stim Hormone (TSH) 3.48 uIU/mL (0.358-3.74)
[2023-05-01] MEDS: 0.9% Normal Saline 1,000 ML 999 ML IV (13:14)
[2023-05-01 14:20] VITALS: BMI 33.2
[2023-05-01 14:28] VITALS: BP 165/47; PULSE 80; RESP 17; TEMP 36.4; O2SAT 100
[2023-05-01] MEDS: Insulin Lispro 100 UNIT/ML INSULN.PEN SC (16:59)
[2023-05-01] MEDS: Glucerna Shake 120 ML LIQUID PO ×2 (17:02→22:52)
--- NOTE | 2023-05-01 18:11 | CASEMGMT ---
KALYEN CM in to complete WALKER Form with patient. KAYLEN TREVIÑO explained WALKER form, patient voiced understanding. Patient signed WALKER form and filed in chart. Patient provided with copy of signed WALKER form. Patient had no further questions or concerns at this time.
--- NOTE | 2023-05-01 20:28 | CASEMGMT ---
Social Work SW introduced self and role to patient for discharge planning assessment. Patient lying in bed, alert and oriented. Patient willing to participate in assessment and is able to answer all questions appropriately.? Care providers, pharmacy, and demographics verified. Pt is unable to care for self at home. Pt?s son has been caring for patient but he is now hospitalized. Pt?s son has not been able to adequately care for pt or self. Pt was brought in by EMS with her son. Pt noted she had not been eating or bathing recently due to son?s medical concerns. Pt also indicated the home was in poor condition and pt/son had bed bugs upon arrival. Pt/son likely to both need SNF placement. SW to follow to coordinate nursing placement, ideally at the same facility. PCP: Sonya Specialists: None Preferred Pharmacy: [facility] Insurance: [facility] Prescription Benefit:?Yes Living Will/HPOA: Reports yes but could not find on file. LNOK: Julio Galdamez, Son Living Arrangements: Home with son Transportation: Taxi DME/HHC: Pt reports using a wheelchair. Denies any other DME and denies past HHC. Pt reports she has had a glucometer but loses it/strips and does not understand how to use it. Disposition Plan: Patient to go to SNF in coordination with her son who will likely need SNF. SW to follow. Rosalba Painter REINFORCING IRON WORKER HELPER, BUDGET COUNSELOR
--- NOTE | 2023-05-01 20:29 | CASEMGMT ---
Social Work SW discussed living situation with patient and additionally gather information regarding son as he would not speak to SW earlier. Pt reports she sleeps on a couch downstairs and her son sleeps in a recliner. Pt and son both cannot walk upstairs to the bedrooms in the home. Pt has had limited bathing and eating while son has been ill. Pt reports she has tried to get her son to go to the doctor but he won't. Son presents as intellectually disabled, pt reports her son just gets weird ideas. Pt/son both need assistance in understanding information discussed. Pt has [employer] MCR and son has Medicare A&B and can likely get acceptance to the same facility. Patient would like time to discuss situation with her son and make a decision for referral. A list of SNF providers including quality and resource use data and consistent with patient?s preferred geographic region, medical needs, and insurance network were provided from the [facility] Guide. Plan: SW to follow up with referral choices and coordinate placement with son/patient. Rosalba Painter PECAN GROWER, PRINTED CIRCUIT BOARDS LAMINATOR
[2023-05-01 22:44] VITALS: BP 129/75; PULSE 47; RESP 16; TEMP 36.8; O2SAT 99
[2023-05-01] MEDS: Donepezil HCl 5 MG Tablet PO (22:53)
[2023-05-01] MEDS: Atorvastatin Calcium 40 MG Tablet PO (22:53)
[2023-05-01] MEDS: Lisinopril 10 MG Tablet PO (22:53)
[2023-05-01 23:43] LABS: Bedside Glucose 215 mg/dL (74-106)
[2023-05-02 00:36] LABS: Bedside Glucose 262 mg/dL (74-106)
[2023-05-02 02:35] LABS: Bedside Glucose 194 mg/dL (74-106)
--- NOTE | 2023-05-02 02:45 | NURSING ---
Patient alarming marko on SPO2 monitor, patient denies all symptoms, feels perfectly fine, Patient hooked to tele as nursing measure. Doctor Rodrigo notified, appears to trend marko. Held atenolol on tonight's emar. Hold parameters on atenolol added. No further orders.
--- NOTE | 2023-05-02 02:57 | EKG12_ITS ---
Test Reason : BRADYCARDIA Blood Pressure : / mmHG Vent. Rate : 043 BPM Atrial Rate : 052 BPM P-R Int : 000 ms QRS Dur : 138 ms QT Int : 526 ms P-R-T Axes : 000 -54 -04 degrees QTc Int : 444 ms Atrial fibrillation Right bundle branch block Left anterior fascicular block Bifascicular block Abnormal ECG Confirmed by JAZZY ZAMORA, JUDI ([id number]), commissioning editor FREDA STILES ([id number]) on 05/11/2023 7:27:00 AM Referred By: PEÑA Confirmed By:JUDI PURCELL MD
--- NOTE | 2023-05-02 03:39 | PCM.HOSP.N ---
Hospitalist Note Patient with telemetry change, EKG with appearance PAF with bradycardia, appears new onset from looking through chart. Will transfer to PCU, will obtain TSH, will obtain mag, ECHO, placed hold parameters on her BB therapy, will place on eliquis.
[2023-05-02 04:14] VITALS: BP 129/44; PULSE 42; RESP 16; TEMP 36.6; O2SAT 98
[2023-05-02 04:30] VITALS: BP 144/47; PULSE 51; RESP 16; TEMP 36.4; O2SAT 98
--- NOTE | 2023-05-02 04:46 | ECHOD_ITS ---
Reason For Study: ATRIAL FIB-FLUTTER Procedure This was a 2D Doppler, Color Flow transthoracic echocardiogram. Exam performed portable in patient room. Left Ventricle Normal size and thickness. The left ventricular ejection fraction is 65 %. At least grade 2 diastolic dysfunction. Right Ventricle Normal right ventricle. Atria The left atrium is moderately enlarged. Normal right atrium. Mitral Valve Moderate mitral annular calcification. Trivial mitral valve insufficiency. Tricuspid Valve Trivial tricuspid valve insufficiency. Right ventricular systolic pressure estimated to be 42 mmHg. Aortic Valve Moderate diffuse aortic valve calcification. Mild aortic stenosis. Mild (1+) aortic valve insufficiency. Pulmonic Valve The pulmonic valve is not well visualized. Great Vessels Normal sized aortic root. Pericardium/Pleural No pericardial effusion. MMode/2D Measurements & Calculations LVIDd: 4.1 cm IVSd: 1.1 cm LVOT diam: 2.0 cm LVIDs: 2.8 cm LVPWd: 1.0 cm LVOT area: 3.1 cm2 RVDd: 3.3 cm FS: 32.5 % Ao root diam: 3.3 cm LAV(MOD-bp): 42.4 ml LVAd ap4: 22.8 cm2 LAV(MOD-bp) Indexed: 24.3 ml/m2 LVLd ap4: 6.6 cm LAV(MOD-sp2): 41.5 ml EDV(MOD-sp4): 64.6 ml LAV(MOD-sp4): 37.5 ml EDV(sp4-el): 66.8 ml LVAs ap4: 12.3 cm2 LVLs ap4: 5.6 cm ESV(MOD-sp4): 23.9 ml ESV(sp4-el): 23.0 ml EF(MOD-sp4): 63.0 % EF(sp4-el): 65.6 % SV(MOD-sp4): 40.7 ml SV(sp4-el): 43.8 ml LA A4 area: 16.3 cm2 LA dimension(2D): 3.4 cm RA A4 area: 14.2 cm2 Doppler Measurements & Calculations MV E max doug: 133.5 cm/sec Lat Peak E' Doug: 8.4 cm/sec Med Peak E' Doug: 6.8 cm/sec E/E' lat: 15.8 E/E' med: 19.7 MV V2 max: 172.9 cm/sec MV P1/2t max doug: 134.7 cm/sec Ao V2 max: 276.6 cm/sec MV max P.0 mmHg MV P1/2t: 120.7 msec Ao max P.6 mmHg MV V2 mean: 66.4 cm/sec Ao V2 mean: 190.5 cm/sec MV mean P.5 mmHg MV dec slope: 326.7 cm/sec2 Ao mean P.2 mmHg MV V2 VTI: 56.0 cm MVA(P1/2t): 1.8 cm2 Ao V2 VTI: 71.6 cm AV (velocity ratio): 0.47 MVA(VTI): 1.9 cm2 JOSE(I,D): 1.4 cm2 JOSE(V,D): 1.4 cm2 AI max doug: 396.8 cm/sec LV V1 max: 130.4 cm/sec SV(LVOT): 103.6 ml AI max P.0 mmHg LV V1 max P.8 mmHg AI dec slope: 158.3 cm/sec2 LV V1 mean P.4 mmHg AI P1/2t: 734.2 msec LV V1 mean: 86.7 cm/sec LV V1 VTI: 33.8 cm PA V2 max: 102.8 cm/sec TR max doug: 305.5 cm/sec TR max P.3 mmHg ECHO/Echo Complete Interpretation Summary The left ventricular ejection fraction is 65 %. At least grade 2 diastolic dysfunction Moderate mitral annular calcification. Right ventricular systolic pressure estimated to be 42 mmHg. Mild aortic stenosis. Mild (1+) aortic valve insufficiency. Ordering Physician: Shelby Wallace Referring Physician: OUMAR CHAN Performed By: Dianne Jorgensen RDCS
--- NOTE | 2023-05-02 05:15 | NURSING ---
Nurse took vitals this shift; pulse is
--- NOTE | 2023-05-02 05:18 | NURSING ---
This nurse took vitals at 2245 and pulse was 47. Nurse noted that pulse was 80 in afternoon so she put patient on continuous pulse ox and held atenolol. Patient asymptomatic, did not feel light headed or dizzy. As night progressed, patient's pulse dropped down to 30s, and then would come back up to the 40s. At one point, nurse went in to check on patient; sternal rub required to wake patient up. Nurse placed the patient on tele as a nursing measure and checked blood sugar, which was less than 200. Charge nurse ordered an EKG. Showed new onset afib. Texted hospitalist at 0311 pt still asymptomatic. No prior hx of afib, but history of heart blocks. Dropped into the 30s and mainly stays below 45. Sent a picture of the EKG. Hospitalist called and put in order for transfer to PCU as well as others. Report called at 0415 to Lashawn.
[2023-05-02 06:32] LABS: Absolute Lymphocyte Count 1.12 X10^3/uL (0.83-4.51); Absolute Neutrophil Count 5.3 X10^3/uL (2.0-7.7); Basophil# 0.05 X10^3/uL; Basophil% 0.7 % (0-1); Eosinophil# 0.34 X10^3/uL; Eosinophils% 4.6 % (0-5); Hematocrit 26.5 % (37-47); Hemoglobin 7.9 g/dL (12.0-15.0); Lymphocyte # 1.12 X10^3/ul (0.83-4.51); Lymphocyte % 15.1 % (19-41); Mean Corp Hgb Conc 29.8 g/dL (32-36); Mean Corpuscular Hgb 22.6 pg (27.0-32.0); Mean Corpuscular Volume 75.9 fL (81-99); Mean Platelet Vol. 10.6 fl (6.2-12.0); Monocyte# 0.61 X10^3/uL; Monocyte% 8.2 % (0-10); NRBC Flagged by Analyzer 0 % (0-5); Neutrophil # 5.26 X10^3/uL (2.7-7.7); Neutrophil % 71.1 % (47-70); POSITIVE MORPHOLOGY YES; Platelet Count 324 K/mm3 (150-450); RBC Distribution Width CV 21.2 % (11.6-14.6); RBC Distribution Width SD 57.8 fl (35.1-43.9); Red Blood Count 3.49 M/mm3 (4.2-5.4); White Blood Count 7.4 K/mm3 (4.4-11.0)
[2023-05-02 06:35] LABS: Differential Indicated SCAN CRITERIA MET
[2023-05-02] MEDS: Insulin Lispro 100 UNIT/ML INSULN.PEN SC ×3 (06:36→16:23)
[2023-05-02 06:56] LABS: Bedside Glucose 163 mg/dL (74-106)
[2023-05-02 06:56] LABS: Acanthocytes 2+; Anisocytosis 1+; Differential Comment SCANNED; Hypochromasia 1+
[2023-05-02 07:05] LABS: Anion Gap 4 (5-15); BUN 64 mg/dL (7-18); BUN/Creat Ratio 43.8 RATIO (10-20); Calcium,Total 9.6 mg/dL (8.5-10.1); Chloride 101 mmol/L (98-107); Creatinine, Serum 1.46 mg/dL (0.55-1.02); EST Glomerular Filtration Rate 37 mL/min (>60); Est Glom Filt Rate - Afr Amer 45 mL/min (>60); Estimated Creatinine Clearance 23.18 ml/min; Glucose 177 mg/dL (74-106); Potassium 3.9 mmol/L (3.5-5.1); Sodium Level 136 mmol/L (136-145)
[2023-05-02 07:10] LABS: Magnesium 2.7 mg/dL (1.6-2.6)
[2023-05-02 07:26] LABS: Thyroid Stim Hormone (TSH) 9.09 uIU/mL (0.358-3.74)
--- NOTE | 2023-05-02 08:27 | PN.HOSP_ITS ---
Reason for Visit Reason for Visit: Diagnoses Other malaise (05/01/23) Subjective Subjective noted to be in afib last night. pt denies any new complaints. Objective Data Objective Data Vital Signs: Vital Signs Temp Pulse Resp BP Pulse Ox O2 Del Method 36.4 C L 51 L 16 144/47 H 98 Room Air 05/02/23 04:30 05/02/23 04:30 05/02/23 04:30 05/02/23 04:30 05/02/23 04:30 05/02/23 04:30 Oxygen Delivery Method Room Air Weight: 77.111 kg Body Mass Index (BMI) 33.2 Intake & Output: Intake and Output for Last 24 Hours 04/30/23 05/01/23 05/02/23 23:59 23:59 23:59 Intake Total 1720 / 1920 200 / 200 Output Total 1300 / 1480 680 / 680 Balance 420 / 440 -480 / -480 Lab / Micro Data 05/02/23 06:10 05/02/23 06:10 Labs: Laboratory Results - last 24 hr 05/01/23 10:19: POC Glucose 190 H 05/01/23 11:42: WBC 8.9, RBC 3.91 L, Hgb 8.8 L, Hct 29.4 L, MCV 75.2 L, MCH 22.5 L, MCHC 29.9 L, RDW Std Deviation 56.7 H, RDW Coeff of Deep 21.2 H, Plt Count 364, MPV 10.6, Immature Gran % (Auto) 0.300, Neut % (Auto) 81.5 H, Lymph % (Auto) 10.1 L, Gillespie % (Auto) 6.3, Eos % (Auto) 1.2, Baso % (Auto) 0.6, Absolute Neuts (auto) 7.2, Absolute Lymphs (auto) 0.90, Nucleated RBC % 0, Platelet Estimate SLT INC, Hypochromasia 1+, Anisocytosis 2+, Microcytosis 1+, Macrocytosis 1+, Ovalocytes 1+, Acanthocytes (Spur) 1+, Sodium 133 L, Potassium 4.5, Chloride 99, Carbon Dioxide 26.0, Anion Gap 8, BUN 73 H, Creatinine 1.85 H, Est GFR (MDRD) Af Amer 34 L, Est GFR (MDRD) Non-Af 28 L, BUN/Creatinine Ratio 39.5 H, Glucose 271 H, Calcium 10.3 H, Iron 60, TIBC 492 H, Iron Saturation 12.2 L, Ferritin 21, Folate 18.20, TSH 3.48 05/01/23 16:46: POC Glucose 262 H 05/01/23 23:20: POC Glucose 215 H 05/02/23 02:14: POC Glucose 194 H 05/02/23 06:10: WBC 7.4, RBC 3.49 L, Hgb 7.9 L, Hct 26.5 L, MCV 75.9 L, MCH 22.6 L, MCHC 29.8 L, RDW Std Deviation 57.8 H, RDW Coeff of Deep 21.2 H, Plt Count 324, MPV 10.6, Immature Gran % (Auto) 0.300, Neut % (Auto) 71.1 H, Lymph % (Auto) 15.1 L, Gillespie % (Auto) 8.2, Eos % (Auto) 4.6, Baso % (Auto) 0.7, Absolute Neuts (auto) 5.3, Absolute Lymphs (auto) 1.12, Nucleated RBC % 0, Differential Comment SCANNED, Hypochromasia 1+, Anisocytosis 1+, Acanthocytes (Spur) 2+, Sodium 136, Potassium 3.9, Chloride 101, Carbon Dioxide 31.0, Anion Gap 4 L, BUN 64 H, Creatinine 1.46 H, Estim Creat Clear Calc 23.18, Est GFR (MDRD) Af Amer 45 L, Est GFR (MDRD) Non-Af 37 L, BUN/Creatinine Ratio 43.8 H, Glucose 177 H, Calcium 9.6, Magnesium 2.7 H, TSH 9.09 H 05/02/23 06:34: POC Glucose 163 H Physical Exam Const alert and no apparent distress HEENT HEENT Narrative: goatee subsequently shaved off. Resp normal respiratory effort, no retractions, no use of accessory muscles and clear to auscultation bilaterally Cardio regular rate, regular rhythm, S1 normal heart sound and S2 normal heart sound GI normal to inspection, nondistended, normoactive bowel sounds, soft to palpation, non-tender and non-distended Assessment & Plan Assessment/Plan (1) Debility: PLAN: Baseline poor performance status and is dependent on her son to help her with ADLs. Her son is currently hospitalized. It is unclear the patient's son will even be able to go home from the hospital. PT and OT evaluate and treat. I do not feel that patient has anything that is acutely rehab whole as this is been more of a chronic process for her. Patient brought under observation status with expected hospitalization exceeding several days given the timing and awaiting on placement. There is no medical necessity for her hospitalization (2) Afib: QUALIFIERS: Atrial fibrillation type: unspecified Qualified Code(s): I48.91 - Unspecified atrial fibrillation PLAN: Unclear if new diagnosis. No mention on cardiology note from 2018. High risk for anticoagulation given high fall risk. Continue aspirin Check echo HR is bradycardic, dipping down in the 30s. Atenolol has been DC'd (has not received during hospitalization) (3) Anemia: QUALIFIERS: Anemia type: iron deficiency Iron deficiency anemia type: unspecified iron deficiency Qualified Code(s): D50.9 - Iron deficiency anemia, unspecified PLAN: Microcytic Iron normal, but ferritin low Will give IV iron Monitor TSH high, but FT4 WNL Folate WNL B12 pending. PLAN: Plan Chronic conditions * Diabetes mellitus type 2: Continue with glargine. Sliding scale insulin * Hypertension: Hold off on the furosemide and HCTZ for now. * History of stroke: Continue with aspirin, clopidogrel and atorvastatin * Coronary artery disease: Continue with aspirin clopidogrel and atorvastatin. VTE prophylaxis not indicated as patient is observation status. Disposition: TBD. Pt's son is in the hospital who is her primary caregiver. If he goes to a facility (SNF), she wants to go to the same facility. Charges/Coding Visit Charges Inpatient E&M: 67419 Subs Hosp L2
[2023-05-02 08:55] LABS: T4 Free Direct 0.99 ng/dL (0.76-1.46)
[2023-05-02 09:21] VITALS: BP 103/46; PULSE 57; RESP 16; TEMP 36.5; O2SAT 99
[2023-05-02] MEDS: Pioglitazone Hydrochloride 30 MG Tablet PO (09:31)
[2023-05-02] MEDS: Clopidogrel Bisulfate 75 MG Tablet PO (09:31)
[2023-05-02] MEDS: APIXABAN 2.5 MG TABLET (WCH) PO ×2 (09:31→22:48)
[2023-05-02] MEDS: 0.9% Saline Lock 10 ML Syringe IV (09:31)
[2023-05-02] MEDS: Aspirin E.C. 81 MG Tablet PO (09:32)
[2023-05-02 10:44] VITALS: BP 120/46; PULSE 50; RESP 16; TEMP 36.7; O2SAT 100
[2023-05-02] MEDS: Glucerna Shake 120 ML LIQUID PO (10:49)
[2023-05-02] MEDS: Insulin Glargine-YFGN 100 UNIT/ML Pen 20 UNIT SC (11:54)
[2023-05-02 13:52] LABS: Bedside Glucose 210 mg/dL (74-106)
[2023-05-02] MEDS: Sodium Ferric Gluconat 250 MG in 0.9% Normal Saline 250 ML 135 MG IV (14:57)
[2023-05-02 16:17] VITALS: BP 125/56; PULSE 58; RESP 16; TEMP 36.6; O2SAT 98
[2023-05-02 18:11] LABS: Bedside Glucose 240 mg/dL (74-106)
[2023-05-02 22:42] VITALS: BP 144/34; PULSE 52; RESP 16; TEMP 36.4; O2SAT 100
[2023-05-02] MEDS: Atorvastatin Calcium 40 MG Tablet PO (22:48)
[2023-05-02] MEDS: Lisinopril 10 MG Tablet PO (22:48)
[2023-05-02] MEDS: Donepezil HCl 5 MG Tablet PO (22:48)
[2023-05-03 03:48] VITALS: BP 121/71; PULSE 77; RESP 18; TEMP 36.2; O2SAT 93
[2023-05-03 04:30] LABS: Bedside Glucose 170 mg/dL (74-106)
[2023-05-03 05:07] LABS: Absolute Lymphocyte Count 1.28 X10^3/uL (0.83-4.51); Absolute Neutrophil Count 4.8 X10^3/uL (2.0-7.7); Basophil# 0.04 X10^3/uL; Basophil% 0.6 % (0-1); Eosinophils% 4.3 % (0-5); Hematocrit 25.9 % (37-47); Hemoglobin 7.4 g/dL (12.0-15.0); Lymphocyte # 1.28 X10^3/ul (0.83-4.51); Lymphocyte % 18.2 % (19-41); Mean Corp Hgb Conc 28.6 g/dL (32-36); Mean Corpuscular Hgb 22.2 pg (27.0-32.0); Mean Corpuscular Volume 77.8 fL (81-99); Mean Platelet Vol. 10.9 fl (6.2-12.0); Monocyte# 0.61 X10^3/uL; Monocyte% 8.7 % (0-10); NRBC Flagged by Analyzer 0 % (0-5); Neutrophil # 4.78 X10^3/uL (2.7-7.7); Neutrophil % 67.6 % (47-70); POSITIVE MORPHOLOGY YES; Platelet Count 305 K/mm3 (150-450); RBC Distribution Width CV 21.5 % (11.6-14.6); RBC Distribution Width SD 58.9 fl (35.1-43.9); Red Blood Count 3.33 M/mm3 (4.2-5.4); White Blood Count 7.1 K/mm3 (4.4-11.0)
[2023-05-03 05:35] LABS: Differential Indicated SCAN CRITERIA MET
[2023-05-03 05:44] LABS: Anisocytosis 2+
[2023-05-03] MEDS: Insulin Lispro 100 UNIT/ML INSULN.PEN SC ×3 (06:55→16:41)
[2023-05-03 07:23] LABS: Bedside Glucose 158 mg/dL (74-106)
--- NOTE | 2023-05-03 07:57 | PN.HOSP_ITS ---
Reason for Visit Reason for Visit: Diagnoses Iron deficiency anemia, unspecified (05/01/23) Unspecified atrial fibrillation (05/01/23) Other malaise (05/01/23) Subjective Subjective Feels well. No chest pain. Objective Data Objective Data Vital Signs: Vital Signs Temp Pulse Resp BP Pulse Ox O2 Del Method 36.2 C L 77 18 121/71 H 93 Room Air 05/03/23 03:48 05/03/23 03:48 05/03/23 03:48 05/03/23 03:48 05/03/23 03:48 05/03/23 03:49 Oxygen Delivery Method Room Air Weight: 77.111 kg Body Mass Index (BMI) 33.2 Intake & Output: Intake and Output for Last 24 Hours 05/01/23 05/02/23 05/03/23 23:59 23:59 23:59 Intake Total 1720 / 1920 1170 / 1170 Output Total 1300 / 1480 1080 / 1080 Balance 420 / 440 90 / 90 Lab / Micro Data 05/03/23 04:44 05/02/23 06:10 Labs: Laboratory Results - last 24 hr 05/02/23 06:10: Free T4 0.99 05/02/23 10:51: POC Glucose 210 H 05/02/23 16:13: POC Glucose 240 H 05/02/23 22:40: POC Glucose 170 H 05/03/23 04:44: WBC 7.1, RBC 3.33 L, Hgb 7.4 L, Hct 25.9 L, MCV 77.8 L, MCH 22.2 L, MCHC 28.6 L, RDW Std Deviation 58.9 H, RDW Coeff of Deep 21.5 H, Plt Count 305, MPV 10.9, Immature Gran % (Auto) 0.600, Neut % (Auto) 67.6, Lymph % (Auto) 18.2 L, Sampson % (Auto) 8.7, Eos % (Auto) 4.3, Baso % (Auto) 0.6, Absolute Neuts (auto) 4.8, Absolute Lymphs (auto) 1.28, Nucleated RBC % 0, Anisocytosis 2+ 05/03/23 06:54: POC Glucose 158 H Physical Exam Const alert and no apparent distress HEENT head/scalp atraumatic and moist oral mucous membranes Resp normal respiratory effort, no retractions, no use of accessory muscles and clear to auscultation bilaterally Cardio regular rate, regular rhythm, S1 normal heart sound and S2 normal heart sound GI normal to inspection, nondistended, normoactive bowel sounds, soft to palpation, non-tender and non-distended Extremity normal to inspection Assessment & Plan Assessment/Plan (1) Debility: PLAN: Baseline poor performance status and is dependent on her son to help her with ADLs. Her son is currently hospitalized. It is unclear the patient's son will even be able to go home from the hospital. PT and OT evaluate and treat. I do not feel that patient has anything that is acutely rehab whole as this is been more of a chronic process for her. Patient brought under observation status with expected hospitalization exceeding several days given the timing and awaiting on placement. There is no medical necessity for her hospitalization (2) Afib: QUALIFIERS: Atrial fibrillation type: unspecified Qualified Code(s): I48.91 - Unspecified atrial fibrillation PLAN: Unclear if new diagnosis. No mention on cardiology note from 2018. High risk for anticoagulation given high fall risk. Continue aspirin Check echo HR is bradycardic, dipping down in the 30s. Atenolol has been DC'd (has not received during hospitalization). Improving bradycardia, continue to hold atenolol. (3) Anemia: QUALIFIERS: Anemia type: iron deficiency Iron deficiency anemia type: unspecified iron deficiency Qualified Code(s): D50.9 - Iron deficiency anemia, unspecified PLAN: Microcytic Iron normal, but ferritin low Recieved IV iron Monitor TSH high, but FT4 WNL Folate WNL B12 pending. PLAN: Plan Chronic conditions * Diabetes mellitus type 2: Continue with glargine. Sliding scale insulin * Hypertension: Hold off on the furosemide and HCTZ for now. * History of stroke: Continue with aspirin, clopidogrel and atorvastatin * Coronary artery disease: Continue with aspirin clopidogrel and atorvastatin. VTE prophylaxis not indicated as patient is observation status. Disposition: TBD. Pt's son is in the hospital who is her primary caregiver. If he goes to a facility (SNF), she wants to go to the same facility. Charges/Coding Visit Charges Inpatient E&M: 08824 Subs Hosp L2
[2023-05-03 08:04] LABS: Vitamin B12 556 pg/mL (211-911)
[2023-05-03] MEDS: Polyethylene Glycol 3350 17 GM PACKET PO (09:27)
[2023-05-03] MEDS: Pioglitazone Hydrochloride 30 MG Tablet PO (09:28)
[2023-05-03] MEDS: Lisinopril 10 MG Tablet 20 MG PO (09:28)
[2023-05-03] MEDS: APIXABAN 2.5 MG TABLET (WCH) PO ×2 (09:28→22:22)
[2023-05-03] MEDS: Aspirin E.C. 81 MG Tablet PO (09:28)
[2023-05-03] MEDS: Clopidogrel Bisulfate 75 MG Tablet PO (09:28)
[2023-05-03] MEDS: Insulin Glargine-YFGN 100 UNIT/ML Pen 20 UNIT SC (09:28)
[2023-05-03] MEDS: Glucerna Shake 120 ML LIQUID PO ×3 (09:34→22:23)
[2023-05-03 09:45] VITALS: BP 132/72; PULSE 90; RESP 18; TEMP 36.6; O2SAT 96
[2023-05-03 10:00] VITALS: BMI 35.3
--- NOTE | 2023-05-03 10:48 | CASEMGMT ---
SW met with patient to discuss d/c planning. Patient said she and her son (who is also hospitalized) would like to go to a assisted together. Patient said she did talk with her son and he wants her to pick the facility. Patient picked [facility] or [facility]. Patient said her son has been to [facility] in the past and they took really good care of him. SW asked patient her first choice and she said [facility]. SW let her know SW will work on making the referral. SOFIE asked Latanya d/c capacity planning manager to send a referral to [facility]. Plan: SNF pending accepting facility and insurance approval. Monalisa PICKENS
--- NOTE | 2023-05-03 11:08 | CASEMGMT ---
Patient nor her son drive. Normally patient's son pushes patient in a wheelchair to the store etc. Most recently patient's son has been sick so he has not been able to get out and get food. Normally they do fine with food and utilities. SW did provide patient with transportation resources. Monalisa Scott RN FIELD CASE MANAGER NELIA
--- NOTE | 2023-05-03 11:14 | CASEMGMT ---
Discharge Planning Referral sent to [facility] via [facility]. Latanya Boss, Discharge Planning Asst.
[2023-05-03 17:01] LABS: Bedside Glucose 301 mg/dL (74-106)
[2023-05-03 17:01] LABS: Bedside Glucose 202 mg/dL (74-106)
[2023-05-03 20:49] VITALS: BP 142/74; PULSE 63; RESP 18; TEMP 36.7; O2SAT 93
[2023-05-03] MEDS: Donepezil HCl 5 MG Tablet PO (22:22)
[2023-05-03] MEDS: Atorvastatin Calcium 40 MG Tablet PO (22:22)
[2023-05-03] MEDS: Lisinopril 10 MG Tablet PO (22:24)
[2023-05-03 23:13] LABS: Bedside Glucose 192 mg/dL (74-106)
[2023-05-04 03:12] VITALS: BP 146/49; PULSE 60; RESP 18; TEMP 36.6; O2SAT 98
[2023-05-04] MEDS: Insulin Lispro 100 UNIT/ML INSULN.PEN SC ×3 (06:31→16:50)
[2023-05-04 06:49] LABS: Bedside Glucose 161 mg/dL (74-106)
[2023-05-04 07:56] VITALS: O2SAT 98
--- NOTE | 2023-05-04 08:17 | PN.HOSP_ITS ---
Reason for Visit Reason for Visit: Diagnoses Iron deficiency anemia, unspecified (05/01/23) Unspecified atrial fibrillation (05/01/23) Other malaise (05/01/23) Subjective Subjective No new events. Objective Data Objective Data Vital Signs: Vital Signs Temp Pulse Resp BP Pulse Ox O2 Del Method 36.6 C 60 18 146/49 H 98 Room Air 05/04/23 03:12 05/04/23 03:12 05/04/23 03:12 05/04/23 03:12 05/04/23 03:12 05/04/23 03:12 Oxygen Delivery Method Room Air Weight: 82.1 kg Body Mass Index (BMI) 35.3 Intake & Output: Intake and Output for Last 24 Hours 05/02/23 05/03/23 05/04/23 23:59 23:59 23:59 Intake Total 1170 / 1170 760 / 760 Output Total 1080 / 1080 800 / 800 200 / 200 Balance 90 / 90 -40 / -40 -200 / -200 Lab / Micro Data 05/04/23 09:10 05/02/23 06:10 Labs: Laboratory Results - last 24 hr 05/03/23 12:29: POC Glucose 301 H 05/03/23 16:39: POC Glucose 202 H 05/03/23 20:48: POC Glucose 192 H 05/04/23 06:30: POC Glucose 161 H Radiography Diagnostic Testing: Radiology Impression Echocardiogram 05/02/23 04:46 Interpretation Summary The left ventricular ejection fraction is 65 %. At least grade 2 diastolic dysfunction Moderate mitral annular calcification. Right ventricular systolic pressure estimated to be 42 mmHg. Mild aortic stenosis. Mild (1+) aortic valve insufficiency. Ordering Physician: Shelby Wallace Referring Physician: OUMAR CHAN Performed By: Dianne Jorgensen RDCS Physical Exam Const alert and no apparent distress HEENT head/scalp atraumatic Resp normal respiratory effort and no retractions Cardio regular rate, regular rhythm, S1 normal heart sound and S2 normal heart sound GI normal to inspection, nondistended, normoactive bowel sounds, soft to palpation, non-tender and non-distended Extremity normal to inspection Assessment & Plan Assessment/Plan (1) Debility: PLAN: Baseline poor performance status and is dependent on her son to help her with ADLs. Her son is currently hospitalized. It is unclear the patient's son will even be able to go home from the hospital. PT and OT evaluate and treat. I do not feel that patient has anything that is acutely rehab whole as this is been more of a chronic process for her. Patient brought under observation status with expected hospitalization exceeding several days given the timing and awaiting on placement. There is no medical necessity for her hospitalization (2) Afib: QUALIFIERS: Atrial fibrillation type: unspecified Qualified Code(s): I48.91 - Unspecified atrial fibrillation PLAN: Unclear if new diagnosis. No mention on cardiology note from 2018. High risk for anticoagulation given high fall risk. Continue aspirin Echo shows an EF 65%. RVSP 42mmHg. HR is bradycardic, dipping down in the 30s. Atenolol has been DC'd (has not received during hospitalization). Improving bradycardia, continue to hold atenolol. (3) Anemia: QUALIFIERS: Anemia type: iron deficiency Iron deficiency anemia type: unspecified iron deficiency Qualified Code(s): D50.9 - Iron deficiency anemia, unspecified PLAN: Microcytic Iron normal, but ferritin low Received IV iron. Start FeSO4 Monitor TSH high, but FT4 WNL Folate WNL B12 pending. check hemoccult. If +, consult GI PLAN: Plan Chronic conditions * Diabetes mellitus type 2: Continue with glargine. Sliding scale insulin * Hypertension: Hold off on the furosemide and HCTZ for now. * History of stroke: Continue with aspirin, clopidogrel and atorvastatin * Coronary artery disease: Continue with aspirin clopidogrel and atorvastatin. VTE prophylaxis not indicated as patient is observation status. Disposition: To [facility]. Pt's son is in the hospital who is her primary caregiver. If he goes to a facility (SNF), she wants to go to the same facility. Charges/Coding Visit Charges Inpatient E&M: 79048 Subs Hosp L2
[2023-05-04 09:03] VITALS: BP 137/47; PULSE 56; RESP 17; TEMP 36.7; O2SAT 97
[2023-05-04] MEDS: Glucerna Shake 120 ML LIQUID PO ×2 (09:07→15:08)
[2023-05-04] MEDS: APIXABAN 2.5 MG TABLET (WCH) PO ×2 (09:09→21:27)
[2023-05-04] MEDS: Lisinopril 10 MG Tablet 20 MG PO (09:09)
[2023-05-04 09:23] LABS: Absolute Lymphocyte Count 1.23 X10^3/uL (0.83-4.51); Absolute Neutrophil Count 5.3 X10^3/uL (2.0-7.7); Basophil# 0.04 X10^3/uL; Basophil% 0.5 % (0-1); Eosinophil# 0.24 X10^3/uL; Eosinophils% 3.1 % (0-5); Hematocrit 25.7 % (37-47); Hemoglobin 7.3 g/dL (12.0-15.0); Lymphocyte # 1.23 X10^3/ul (0.83-4.51); Lymphocyte % 16.1 % (19-41); Mean Corp Hgb Conc 28.4 g/dL (32-36); Mean Corpuscular Hgb 22.3 pg (27.0-32.0); Mean Corpuscular Volume 78.6 fL (81-99); Mean Platelet Vol. 10.7 fl (6.2-12.0); Monocyte# 0.75 X10^3/uL; Monocyte% 9.8 % (0-10); NRBC Flagged by Analyzer 0 % (0-5); Neutrophil # 5.33 X10^3/uL (2.7-7.7); Neutrophil % 69.7 % (47-70); POSITIVE MORPHOLOGY YES; Platelet Count 296 K/mm3 (150-450); RBC Distribution Width CV 22.2 % (11.6-14.6); RBC Distribution Width SD 61.6 fl (35.1-43.9); Red Blood Count 3.27 M/mm3 (4.2-5.4); White Blood Count 7.7 K/mm3 (4.4-11.0)
[2023-05-04 09:26] LABS: Differential Indicated SCAN CRITERIA MET
[2023-05-04 09:41] LABS: Anisocytosis 2+
[2023-05-04] MEDS: Clopidogrel Bisulfate 75 MG Tablet PO (10:35)
[2023-05-04] MEDS: Aspirin E.C. 81 MG Tablet PO (10:35)
[2023-05-04 10:47] VITALS: O2SAT 98
--- NOTE | 2023-05-04 11:07 | CASEMGMT ---
Discharge Planning Requested updates sent to [facility] via [facility]. Latanya Boss, Discharge Planning Asst.
[2023-05-04] MEDS: Insulin Glargine-YFGN 100 UNIT/ML Pen 20 UNIT SC (11:29)
[2023-05-04 11:51] LABS: Bedside Glucose 191 mg/dL (74-106)
[2023-05-04] MEDS: Pioglitazone Hydrochloride 30 MG Tablet PO (12:34)
[2023-05-04 15:10] VITALS: BP 126/44; PULSE 48; RESP 18; TEMP 36.4; O2SAT 99
[2023-05-04 16:47] LABS: Bedside Glucose 255 mg/dL (74-106)
[2023-05-04 21:10] VITALS: BP 137/56; PULSE 60; RESP 18; TEMP 36.4; O2SAT 100
[2023-05-04] MEDS: Atorvastatin Calcium 40 MG Tablet PO (21:26)
[2023-05-04] MEDS: Lisinopril 10 MG Tablet PO (21:26)
[2023-05-04] MEDS: Donepezil HCl 5 MG Tablet PO (21:26)
[2023-05-04 22:03] LABS: Bedside Glucose 225 mg/dL (74-106)
[2023-05-05 03:00] VITALS: BP 121/47; PULSE 57; RESP 18; TEMP 36.6; O2SAT 99
[2023-05-05 06:02] LABS: Absolute Neutrophil Count 6.1 X10^3/uL (2.0-7.7); Basophil# 0.04 X10^3/uL; Basophil% 0.5 % (0-1); Eosinophil# 0.33 X10^3/uL; Eosinophils% 3.9 % (0-5); Hematocrit 25.3 % (37-47); Hemoglobin 7.3 g/dL (12.0-15.0); Lymphocyte % 14.2 % (19-41); Mean Corp Hgb Conc 28.9 g/dL (32-36); Mean Corpuscular Hgb 22.7 pg (27.0-32.0); Mean Corpuscular Volume 78.8 fL (81-99); Monocyte# 0.75 X10^3/uL; Monocyte% 8.9 % (0-10); NRBC Flagged by Analyzer 0 % (0-5); Neutrophil # 6.07 X10^3/uL (2.7-7.7); Neutrophil % 71.7 % (47-70); POSITIVE MORPHOLOGY YES; Platelet Count 315 K/mm3 (150-450); RBC Distribution Width CV 22.2 % (11.6-14.6); Red Blood Count 3.21 M/mm3 (4.2-5.4); White Blood Count 8.5 K/mm3 (4.4-11.0)
[2023-05-05 06:04] LABS: Differential Indicated SCAN CRITERIA MET
[2023-05-05 06:22] LABS: Differential Comment SCANNED
[2023-05-05 06:23] LABS: Anisocytosis 2+; Hypochromasia 1+
[2023-05-05 06:36] LABS: Bedside Glucose 126 mg/dL (74-106)
[2023-05-05 10:06] VITALS: BP 115/69; PULSE 51; RESP 16; TEMP 36.3; O2SAT 100
[2023-05-05] MEDS: Lisinopril 10 MG Tablet 20 MG PO (10:13)
[2023-05-05] MEDS: APIXABAN 2.5 MG TABLET (WCH) PO ×2 (10:13→21:57)
[2023-05-05] MEDS: Aspirin E.C. 81 MG Tablet PO (10:13)
[2023-05-05] MEDS: Clopidogrel Bisulfate 75 MG Tablet PO (10:13)
[2023-05-05] MEDS: Glucerna Shake 120 ML LIQUID PO ×2 (10:19→14:10)
--- NOTE | 2023-05-05 10:40 | CASEMGMT ---
Patient's son arrived and wanted to talk with SW. SW and SOFIE Trammell went to patient's room. SW introduced self and Brystol. Patient's son wanted to make sure patient was seeing a SW. SW explained the discharge plan and that currently we are waiting on insurance to approve patient to go to [facility]. Patient's son said patient cannot take care of herself and their home is a mess. (He said this outside of patient's room) Monalisa PICKENS
[2023-05-05] MEDS: Insulin Lispro 100 UNIT/ML INSULN.PEN SC ×2 (11:25→16:38)
[2023-05-05] MEDS: Pioglitazone Hydrochloride 30 MG Tablet PO (11:25)
[2023-05-05] MEDS: Insulin Glargine-YFGN 100 UNIT/ML Pen 20 UNIT SC (11:25)
[2023-05-05] MEDS: Ferrous Sulfate 325 MG Tablet PO (11:26)
[2023-05-05 11:48] LABS: Bedside Glucose 170 mg/dL (74-106)
--- NOTE | 2023-05-05 12:14 | CASEMGMT ---
SW received a call from [facility] and they would like a peer to peer. SW wrote down information and gave it to physician. Physician did the peer to peer and patient was denied. SW will talk with patient about a plan. Monalisa PICKENS
--- NOTE | 2023-05-05 13:29 | CASEMGMT ---
SW spoke with patient and let her know insurance denied her to go to the shelter. SW had to explain this several times. Patient asked SW how [facility] took over her insurance without her knowing. SW explained she must have talked with someone from [facility] at some point as they cannot just take over her insurance and she is paying them a monthly premium. Patient focussed on this so SW had to redirect patient to discuss a d/c plan. SW told patient she could private pay at [facility] and patient said she could not afford this. SW asked patient if she is able to go home and care for herself. Patient said she is not able to care for herself as she cannot walk and she cannot get off the couch or toilet by herself. SW told patient that yesterday she walked 25 feet with therapy. Patient said she can walk just not long distances. SW asked patient about other family. Patient said her daughter just had her leg amputated and she has her own kids to care for. SW asked patient about her son who was at [facility] earlier. Patient said he cannot help he lives with an older lady in her home. Patient said she needs someone to help with cleaning up her home. Right now patient said her home is a mess as she and her son Julio have been sick so they have not been able to clean. SW told patient that [facility] is around $190 something a day. SW asked patient if she could afford that for a week. Patient asked how much it would cost. SW told patient SW will check with [facility] on the cost and how much it would be for a week. Patient said she needs someone to clean her home and she doesn't know how to do this. SW told patient SW will make a few phone calls and get back with her. SW called [facility] and asked if there are any programs available to help patient's with bedbugs. Gonzalez said there are no programs available. SOFIE asked about assistance with cleaning up homes and [facility] said not if there are bedbugs. [facility] said this has been an ongoing problem with patient and her son. [facility] responded and said it would cost $1,330 for a week. SW will talk with patient. Patient will not qualify for Medicaid as she owns two homes. Monalisa PICKENS
--- NOTE | 2023-05-05 15:51 | CASEMGMT ---
SW spent an extensive amount of time talking with patient about a plan. Patient did give SW her son Song and daughter Pushpa's phone numbers and permission for SW to call them. SW told patient if she private paid at [facility] it would be $1,330. Patient said she cannot afford this. Patient said she has $300 in the bank and $800 in [place]. Patient said she gets $1600 from Social Security and her daughter pays her $400 per month for rent. SW told patient she may not have any choice, but to go home at d/c. Patient said there is no one to care for her. SW also noticed patient has a diagnosis of dementia. SW did complete part of the mini mental status exam and patient did well. SW called patient's son Song and he was not home. SOFIE called patient's daughter Pushpa and talked with her about the situation. SOFIE told Pushpa CARRIZALES is aware she is unable to help right now due to recently having her leg amputated. SOFIE asked Pushpa if she could talk with her family and her brother Song to see what they might be able to do to help patient. Pushpa said she will talk with her daughter irineo. SOFIE will see how patient does with therapy tomorrow, talk with the therapists and then talk with her again tomorrow. Monalisa PICKENS
[2023-05-05 16:30] VITALS: BP 127/58; PULSE 50; RESP 16; TEMP 36.4; O2SAT 100
[2023-05-05 18:23] LABS: Bedside Glucose 216 mg/dL (74-106)
--- NOTE | 2023-05-05 18:38 | PN.HOSP_ITS ---
Reason for Visit Reason for Visit: Diagnoses Iron deficiency anemia, unspecified (05/01/23) Unspecified atrial fibrillation (05/01/23) Other malaise (05/01/23) Subjective Subjective And examined today, I talked with her insurance carrier about her medical care in an attempt to have the patient go to an extended care facility for short-term rehab, her insurance carrier physician told me that she did not qualify to go to a rehab facility and that her condition was more of a halfway nature than a medical issue. Objective Data Objective Data Vital Signs: Vital Signs Temp Pulse Resp BP Pulse Ox O2 Del Method 97.6 F L 50 L 16 127/58 H 100 Room Air 05/05/23 16:30 05/05/23 16:30 05/05/23 16:30 05/05/23 16:30 05/05/23 16:30 05/05/23 16:30 Oxygen Delivery Method Room Air Weight: 82.1 kg Body Mass Index (BMI) 35.3 Intake & Output: Intake and Output for Last 24 Hours 05/03/23 05/04/23 05/05/23 23:59 23:59 23:59 Intake Total 760 / 760 450 / 570 760 / 760 Output Total 800 / 800 350 / 750 750 / 750 Balance -40 / -40 100 / -180 Lab / Micro Data 05/05/23 05:42 05/02/23 06:10 Labs: Laboratory Results - last 24 hr 05/04/23 21:23: POC Glucose 225 H 05/05/23 05:42: WBC 8.5, RBC 3.21 L, Hgb 7.3 L, Hct 25.3 L, MCV 78.8 L, MCH 22.7 L, MCHC 28.9 L, RDW Std Deviation 60.0 H, RDW Coeff of Deep 22.2 H, Plt Count 315, MPV 11.0, Immature Gran % (Auto) 0.800, Neut % (Auto) 71.7 H, Lymph % (Auto) 14.2 L, Bulloch % (Auto) 8.9, Eos % (Auto) 3.9, Baso % (Auto) 0.5, Absolute Neuts (auto) 6.1, Absolute Lymphs (auto) 1.20, Nucleated RBC % 0, Differential Comment SCANNED, Hypochromasia 1+, Anisocytosis 2+ 07/19/23 06:13: POC Glucose 126 H 05/05/23 11:24: POC Glucose 170 H 05/05/23 16:36: POC Glucose 216 H Physical Exam Const alert, no apparent distress and average body habitus General Appearance: cooperative and well developed Orientation / Consciousness: awake, oriented to person and oriented to place HEENT normocephalic, head/scalp atraumatic and moist oral mucous membranes Eyes PERRL, EOMs intact bilaterally and conjunctivae normal Neck supple, no JVD, thyroid normal and no carotid bruits General: trachea midline Resp normal respiratory effort, no retractions, no use of accessory muscles and clear to auscultation bilaterally Auscultation: Negative for rales, rhonchi or wheezes Cardio S1 normal heart sound, S2 normal heart sound, no murmurs, no rub and no gallops Cardio Narrative: Heart rate and rhythm is irregular GI normal to inspection, nondistended, normoactive bowel sounds, soft to palpation, non-tender and non-distended Extremity no clubbing, cyanosis or edema Skin no rashes or lesions noted General Skin Exam: no breakdown Neuro CN's II-XII intact bilaterally, moves all extremities, no focal motor deficits and no sensory deficits noted Sensorium / Orientation: awake, alert, oriented to person and oriented to place Speech: speech normal Psych affect normal Assessment & Plan Assessment/Plan (1) Debility: PLAN: Plan 1. Acute debility-PT and OT will continue to see the patient, again her insurance carrier has declined to approve her for placement in a jail facility, alternate arrangements what to be made for patient care at the time of discharge. #2 essential hypertension-patient will remain on her current blood pressure medications #3 type 2 diabetes-patient is to remain on her oral medication for diabetes, blood sugars will be monitored, sliding scale insulin will be given as needed #4 dementia-patient is on Aricept #5 cerebrovascular disease-patient is on aspirin and Plavix #6 chronic atrial fibrillation-patient is on Eliquis and rate appears well controlled on no rate limiting medications at this time, continue to monitor patient's rhythm #7 iron deficiency anemia-patient will be given IV Venofer, patient does not require blood transfusion at this time #8 stage IIIb chronic kidney disease secondary to type 2 diabetes-complicates care, medical course, recovery, and prognosis, repeat BMP tomorrow Total clinical time spent by myself addressing the patient's medical issues, reviewing all of her data, and collaborating with patient's care team: 35 minutes Charges/Coding Visit Charges Inpatient E&M: 11102 Subs Hosp L2
[2023-05-05] MEDS: Donepezil HCl 5 MG Tablet PO (21:57)
[2023-05-05] MEDS: Atorvastatin Calcium 40 MG Tablet PO (21:57)
[2023-05-05] MEDS: Lisinopril 10 MG Tablet PO (21:58)
[2023-05-05 22:00] VITALS: RESP 18
[2023-05-05 22:23] LABS: Bedside Glucose 133 mg/dL (74-106)
[2023-05-06 05:45] LABS: Bedside Glucose 95 mg/dL (74-106)
[2023-05-06 05:49] VITALS: BP 129/56; PULSE 54; RESP 18; TEMP 36.6; O2SAT 99
[2023-05-06 06:21] LABS: Absolute Lymphocyte Count 1.19 X10^3/uL (0.83-4.51); Absolute Neutrophil Count 6.2 X10^3/uL (2.0-7.7); Basophil# 0.06 X10^3/uL; Basophil% 0.7 % (0-1); Eosinophil# 0.38 X10^3/uL; Eosinophils% 4.4 % (0-5); Hematocrit 24.4 % (37-47); Hemoglobin 7.1 g/dL (12.0-15.0); Lymphocyte # 1.19 X10^3/ul (0.83-4.51); Lymphocyte % 13.9 % (19-41); Mean Corp Hgb Conc 29.1 g/dL (32-36); Mean Corpuscular Hgb 22.8 pg (27.0-32.0); Mean Corpuscular Volume 78.5 fL (81-99); Mean Platelet Vol. 10.3 fl (6.2-12.0); Monocyte# 0.73 X10^3/uL; Monocyte% 8.5 % (0-10); NRBC Flagged by Analyzer 0 % (0-5); Neutrophil # 6.16 X10^3/uL (2.7-7.7); Neutrophil % 71.9 % (47-70); POSITIVE MORPHOLOGY YES; Platelet Count 282 K/mm3 (150-450); RBC Distribution Width CV 22.6 % (11.6-14.6); RBC Distribution Width SD 59.7 fl (35.1-43.9); Red Blood Count 3.11 M/mm3 (4.2-5.4); White Blood Count 8.6 K/mm3 (4.4-11.0)
[2023-05-06 06:32] LABS: Differential Indicated SCAN CRITERIA MET
[2023-05-06 06:46] LABS: Acanthocytes 2+; Anisocytosis 1+; Differential Comment SCANNED; Hypochromasia 2+
[2023-05-06 06:49] LABS: Anion Gap 5 (5-15); BUN 59 mg/dL (7-18); Calcium,Total 9.4 mg/dL (8.5-10.1); Chloride 108 mmol/L (98-107); Creatinine, Serum 1.31 mg/dL (0.55-1.02); EST Glomerular Filtration Rate 42 mL/min (>60); Est Glom Filt Rate - Afr Amer 51 mL/min (>60); Estimated Creatinine Clearance 25.83 ml/min; Glucose 88 mg/dL (74-106); Potassium 5.1 mmol/L (3.5-5.1); Sodium Level 136 mmol/L (136-145)
[2023-05-06 10:29] VITALS: BP 129/58; PULSE 64; RESP 18; TEMP 36.7; O2SAT 99
[2023-05-06] MEDS: Pioglitazone Hydrochloride 30 MG Tablet PO (10:34)
[2023-05-06] MEDS: APIXABAN 2.5 MG TABLET (WCH) PO ×2 (10:34→20:52)
[2023-05-06] MEDS: Lisinopril 10 MG Tablet 20 MG PO (10:34)
[2023-05-06] MEDS: Aspirin E.C. 81 MG Tablet PO (10:34)
[2023-05-06] MEDS: Clopidogrel Bisulfate 75 MG Tablet PO (10:34)
[2023-05-06] MEDS: Glucerna Shake 120 ML LIQUID PO ×2 (10:35→18:30)
[2023-05-06] MEDS: Polyethylene Glycol 3350 17 GM PACKET PO (10:35)
[2023-05-06 10:46] VITALS: O2SAT 99
[2023-05-06] MEDS: Insulin Lispro 100 UNIT/ML INSULN.PEN SC ×2 (11:34→16:36)
[2023-05-06] MEDS: Ferrous Sulfate 325 MG Tablet PO (11:35)
[2023-05-06] MEDS: Insulin Glargine-YFGN 100 UNIT/ML Pen 20 UNIT SC (11:35)
[2023-05-06 12:16] LABS: Bedside Glucose 181 mg/dL (74-106)
--- NOTE | 2023-05-06 15:08 | CASEMGMT ---
SW spoke with [employer] and patient regarding appealing the denial for SNF. Patient is in agreement. SW initiated an expedited appeal over the phone with Aleisha from [facility] and then faxed in additional information. Await response. Monalisa Scott MSW NELIA
[2023-05-06 16:28] VITALS: BP 138/62; PULSE 59; RESP 18; TEMP 36.6; O2SAT 96
[2023-05-06 17:00] LABS: Bedside Glucose 195 mg/dL (74-106)
--- NOTE | 2023-05-06 18:10 | PN.HOSP_ITS ---
Reason for Visit Reason for Visit: Diagnoses Iron deficiency anemia, unspecified (05/01/23) Unspecified atrial fibrillation (05/01/23) Other malaise (05/01/23) Subjective Subjective Patient was seen and examined today, she has no complaints of any shortness of breath or chest discomfort, she remains in atrial fib with well-controlled ventricular response. director of therapy services is putting in an appeal to her insurance carrier to see if they will reconsider paying for a short-term [facility] stay. Objective Data Objective Data Vital Signs: Vital Signs Temp Pulse Resp BP Pulse Ox O2 Del Method 97.8 F 59 L 18 138/62 H 96 Room Air 05/06/23 16:28 05/06/23 16:28 05/06/23 16:28 05/06/23 16:28 05/06/23 16:28 05/06/23 16:28 Oxygen Delivery Method Room Air Weight: 82.1 kg Body Mass Index (BMI) 35.3 Intake & Output: Intake and Output for Last 24 Hours 05/04/23 05/05/23 05/06/23 23:59 23:59 23:59 Intake Total 450 / 570 910 / 1030 420 / 420 Output Total 350 / 750 1250 / 1250 200 / 200 Balance 100 / -180 -340 / -220 220 / 220 Lab / Micro Data 05/06/23 06:08 05/06/23 06:08 Labs: Laboratory Results - last 24 hr 05/05/23 16:36: POC Glucose 216 H 05/05/23 22:02: POC Glucose 133 H 05/06/23 05:26: POC Glucose 95 05/06/23 06:08: WBC 8.6, RBC 3.11 L, Hgb 7.1 L, Hct 24.4 L, MCV 78.5 L, MCH 22.8 L, MCHC 29.1 L, RDW Std Deviation 59.7 H, RDW Coeff of Deep 22.6 H, Plt Count 282 , MPV 10.3, Immature Gran % (Auto) 0.600, Neut % (Auto) 71.9 H, Lymph % (Auto) 13.9 L, [place] % (Auto) 8.5, Eos % (Auto) 4.4, Baso % (Auto) 0.7, Absolute Neuts (auto) 6.2, Absolute Lymphs (auto) 1.19, Nucleated RBC % 0, Differential Comment SCANNED, Hypochromasia 2+, Anisocytosis 1+, Acanthocytes (Spur) 2+, Sodium 136, Potassium 5.1, Chloride 108 H, Carbon Dioxide 23.0, Anion Gap 5, BUN 59 H, Cr eatinine 1.31 H, Estim Creat Clear Calc 25.83, Est GFR (MDRD) Af Amer 51 L, Est GFR (MDRD) Non-Af 42 L, BUN/Creatinine Ratio 45.0 H, Glucose 88, Calcium 9.4 05/06/23 11:33: POC Glucose 181 H 05/06/23 16:35: POC Glucose 195 H Physical Exam Narrative alert, no apparent distress and average body habitus General Appearance: cooperative and well developed Orientation / Consciousness: awake, oriented to person and oriented to place HEENT normocephalic, head/scalp atraumatic and moist oral mucous membranes Eyes PERRL, EOMs intact bilaterally and conjunctivae normal Neck supple, no JVD, thyroid normal and no carotid bruits General: trachea midline Resp normal respiratory effort, no retractions, no use of accessory muscles and clear to auscultation bilaterally Auscultation: Negative for rales, rhonchi or wheezes Cardio S1 normal heart sound, S2 normal heart sound, no murmurs, no rub and no gallops Cardio Narrative: Heart rate and rhythm is irregular GI normal to inspection, nondistended, normoactive bowel sounds, soft to palpation, non-tender and non-distended Extremity no clubbing, cyanosis or edema Skin no rashes or lesions noted General Skin Exam: no breakdown Neuro CN's II-XII intact bilaterally, moves all extremities, no focal motor deficits and no sensory deficits noted Sensorium / Orientation: awake, alert, oriented to person and oriented to place Speech: speech normal Psych affect normal Assessment & Plan Assessment/Plan (1) Debility: PLAN: Plan 1. Acute debility-PT and OT will continue to see the patient, again her insurance carrier has declined to approve her for placement in a residential facility, alternate arrangements will have to be made before she is discharged, patient tells me she is unable to take care of herself at home. #2 essential hypertension-patient will remain on her current blood pressure medications #3 type 2 diabetes-patient is to remain on her oral medication for diabetes, blood sugars will be monitored, sliding scale insulin will be given as needed #4 dementia-patient is on Aricept #5 cerebrovascular disease-patient is on aspirin and Plavix #6 chronic atrial fibrillation-patient is on Eliquis and rate appears well controlled on no rate limiting medications at this time, continue to monitor patient's rhythm #7 iron deficiency anemia-patient will be given IV Venofer, patient does not require blood transfusion at this time #8 stage IIIb chronic kidney disease secondary to type 2 diabetes-complicates care, medical course, recovery, and prognosis, repeat BMP tomorrow Total clinical time spent by myself addressing the patient's medical issues, reviewing all of her data, and collaborating with patient's care team: 35 minut es Charges/Coding Visit Charges Inpatient E&M: 98705 Subs Hosp L2
[2023-05-06 20:50] VITALS: BP 150/52; PULSE 60; RESP 18; TEMP 36.6; O2SAT 100
[2023-05-06] MEDS: Donepezil HCl 5 MG Tablet PO (20:52)
[2023-05-06] MEDS: Atorvastatin Calcium 40 MG Tablet PO (20:52)
[2023-05-06] MEDS: Lisinopril 10 MG Tablet PO (20:52)
[2023-05-06 23:33] LABS: Bedside Glucose 191 mg/dL (74-106)
[2023-05-07 03:20] VITALS: BP 138/86; PULSE 63; RESP 18; TEMP 36.9; O2SAT 96
[2023-05-07 06:57] LABS: Bedside Glucose 128 mg/dL (74-106)
[2023-05-07 09:05] VITALS: BP 145/47; PULSE 56; RESP 17; TEMP 36.7; O2SAT 99
[2023-05-07] MEDS: Lisinopril 10 MG Tablet 20 MG PO (09:11)
[2023-05-07] MEDS: APIXABAN 2.5 MG TABLET (WCH) PO ×2 (09:11→21:00)
[2023-05-07] MEDS: Aspirin E.C. 81 MG Tablet PO (09:11)
[2023-05-07] MEDS: Clopidogrel Bisulfate 75 MG Tablet PO (09:11)
[2023-05-07] MEDS: Pioglitazone Hydrochloride 30 MG Tablet PO (09:12)
[2023-05-07] MEDS: Insulin Glargine-YFGN 100 UNIT/ML Pen 20 UNIT SC (09:12)
[2023-05-07] MEDS: Ferrous Sulfate 325 MG Tablet PO (11:38)
[2023-05-07] MEDS: Glucerna Shake 120 ML LIQUID PO ×2 (11:38→21:04)
[2023-05-07] MEDS: Insulin Lispro 100 UNIT/ML INSULN.PEN SC ×2 (11:38→17:11)
[2023-05-07 12:03] LABS: Bedside Glucose 193 mg/dL (74-106)
--- NOTE | 2023-05-07 13:50 | CASEMGMT ---
SW received a call from [employer] notifying SW that they received all necessary information for the appeal and a decision will be made 05-09. SW notified patient of this information. SW will notify patient on Wednesday what insurance decided. SW also provided patient with a list of cleaning agencies and exterminators along with their phone numbers. Patient was appreciative. Monalisa PICKENS
[2023-05-07 15:00] VITALS: BP 122/51; PULSE 56; RESP 18; TEMP 36.6; O2SAT 99
[2023-05-07 17:34] LABS: Bedside Glucose 173 mg/dL (74-106)
--- NOTE | 2023-05-07 18:21 | PCM.PN.HOSP ---
Reason for Visit Reason for Visit: Diagnoses Iron deficiency anemia, unspecified (05/01/23) Unspecified atrial fibrillation (05/01/23) Other malaise (05/01/23) Subjective Subjective Patient was seen and examined today, she does not complain of any fever, chills, shortness of breath, or chest discomfort. Objective Data Objective Data Vital Signs: Vital Signs Temp Pulse Resp BP Pulse Ox O2 Del Method 97.8 F 56 L 18 122/51 H 99 Room Air 05/07/23 15:00 05/07/23 15:00 05/07/23 15:00 05/07/23 15:00 05/07/23 15:00 05/07/23 15:05 Oxygen Delivery Method Room Air Weight: 82.1 kg Body Mass Index (BMI) 35.3 Intake & Output: Intake and Output for Last 24 Hours 05/05/23 05/06/23 05/07/23 23:59 23:59 23:59 Intake Total 910 / 1030 870 / 870 200 / 200 Output Total 1250 / 1250 900 / 900 650 / 650 Balance -340 / -220 -30 / -30 -450 / -450 Lab / Micro Data 05/06/23 06:08 05/06/23 06:08 Labs: Laboratory Results - last 24 hr 05/06/23 20:49: POC Glucose 191 H 05/07/23 06:28: POC Glucose 128 H 05/07/23 11:36: POC Glucose 193 H 05/07/23 17:08: POC Glucose 173 H Physical Exam Narrative alert, no apparent distress and average body habitus General Appearance: cooperative and well developed Orientation / Consciousness: awake, oriented to person and oriented to place HEENT normocephalic, head/scalp atraumatic and moist oral mucous membranes Eyes PERRL, EOMs intact bilaterally and conjunctivae normal Neck supple, no JVD, thyroid normal and no carotid bruits General: trachea midline Resp normal respiratory effort, no retractions, no use of accessory muscles and clear to auscultation bilaterally Auscultation: Negative for rales, rhonchi or wheezes Cardio S1 normal heart sound, S2 normal heart sound, no murmurs, no rub and no gallops Cardio Narrative: Heart rate and rhythm is irregular GI normal to inspection, nondistended, normoactive bowel sounds, soft to palpation, non-tender and non-distended Extremity no clubbing, cyanosis or edema Skin no rashes or lesions noted General Skin Exam: no breakdown Neuro CN's II-XII intact bilaterally, moves all extremities, no focal motor deficits and no sensory deficits noted Sensorium / Orientation: awake, alert, oriented to person and oriented to place Speech: speech normal Psych affect normal Assessment & Plan Assessment/Plan (1) Debility: PLAN: Plan 1. Acute debility-PT and OT will continue to see the patient, again her insurance carrier has declined to approve her for placement in a senior care facility, alternate arrangements will have to be made before she is discharged, patient tells me she is unable to take care of herself at home. We are currently awaiting results of an appeal to her insurance carrier regarding transfer to a senior care facility. #2 essential hypertension-patient will remain on her current blood pressure medications #3 type 2 diabetes-patient is to remain on her oral medication for diabetes, blood sugars will be monitored, sliding scale insulin will be given as needed #4 dementia-patient is on Aricept #5 cerebrovascular disease-patient is on aspirin and Plavix #6 chronic atrial fibrillation-patient is on Eliquis and rate appears well controlled on no rate limiting medications at this time, I do not believe the patient needs to be monitored on telemetry at this time #7 iron deficiency anemia-patient will be given IV Venofer, patient does not require blood transfusion at this time #8 stage IIIb chronic kidney disease secondary to type 2 diabetes-complicates care, medical course, recovery, and prognosis, repeat BMP tomorrow Total clinical time spent by myself addressing the patient's medical issues, reviewing all of her data, and collaborating with patient's care team: 25 minutes Charges/Coding Visit Charges Inpatient E&M: 52875 Subs Hosp L1
[2023-05-07] MEDS: Donepezil HCl 5 MG Tablet PO (21:00)
[2023-05-07] MEDS: Atorvastatin Calcium 40 MG Tablet PO (21:00)
[2023-05-07] MEDS: Lisinopril 10 MG Tablet PO (21:00)
[2023-05-07 21:06] VITALS: BP 134/53; PULSE 63; RESP 15; TEMP 36.7; O2SAT 95
[2023-05-08 01:20] LABS: Bedside Glucose 151 mg/dL (74-106)
[2023-05-08 03:06] VITALS: BP 130/95; PULSE 63; RESP 16; TEMP 36.3; O2SAT 96
[2023-05-08] MEDS: Acetaminophen 325 MG Tablet 650 MG PO (03:19)
[2023-05-08 08:48] VITALS: BP 97/64; PULSE 65; RESP 16; TEMP 37.1; O2SAT 99
[2023-05-08] MEDS: Pioglitazone Hydrochloride 30 MG Tablet PO (08:52)
[2023-05-08] MEDS: APIXABAN 2.5 MG TABLET (WCH) PO ×2 (08:52→21:29)
[2023-05-08] MEDS: Aspirin E.C. 81 MG Tablet PO (08:52)
[2023-05-08] MEDS: Insulin Glargine-YFGN 100 UNIT/ML Pen 20 UNIT SC (08:53)
[2023-05-08] MEDS: Clopidogrel Bisulfate 75 MG Tablet PO (08:54)
[2023-05-08] MEDS: Lisinopril 10 MG Tablet 20 MG PO (08:54)
[2023-05-08] MEDS: Ferrous Sulfate 325 MG Tablet PO (08:55)
[2023-05-08 11:58] LABS: Bedside Glucose 134 mg/dL (74-106)
[2023-05-08] MEDS: Insulin Lispro 100 UNIT/ML INSULN.PEN SC (12:38)
[2023-05-08 12:59] LABS: Bedside Glucose 222 mg/dL (74-106)
[2023-05-08 14:26] VITALS: BP 119/46; PULSE 66; RESP 16; TEMP 36.4; O2SAT 97
[2023-05-08 18:07] LABS: Bedside Glucose 108 mg/dL (74-106)
[2023-05-08 20:00] VITALS: BP 149/59; PULSE 75; RESP 18; TEMP 36.6; O2SAT 99
[2023-05-08] MEDS: Atorvastatin Calcium 40 MG Tablet PO (21:29)
[2023-05-08] MEDS: Lisinopril 10 MG Tablet PO (21:29)
[2023-05-08] MEDS: Donepezil HCl 5 MG Tablet PO (21:29)
[2023-05-09 00:58] LABS: Bedside Glucose 169 mg/dL (74-106)
[2023-05-09 03:10] VITALS: BP 144/54; PULSE 65; RESP 16; TEMP 36.8; O2SAT 99
[2023-05-09 06:54] LABS: Bedside Glucose 96 mg/dL (74-106)
[2023-05-09] MEDS: Aspirin E.C. 81 MG Tablet PO (08:11)
[2023-05-09 09:10] VITALS: BP 131/51; PULSE 68; RESP 16; TEMP 36.9; O2SAT 99
--- NOTE | 2023-05-09 09:34 | PCM.PN.HOSP ---
Reason for Visit Reason for Visit: Diagnoses Iron deficiency anemia, unspecified (05/01/23) Unspecified atrial fibrillation (05/01/23) Other malaise (05/01/23) Subjective Subjective Patient was seen and examined today, she does not complain of any chest pain or shortness of breath. Objective Data Objective Data Vital Signs: Vital Signs Temp Pulse Resp BP Pulse Ox O2 Del Method 98.3 F 65 16 144/54 H 99 Room Air 05/09/23 03:10 05/09/23 03:10 05/09/23 03:10 05/09/23 03:10 05/09/23 03:10 05/09/23 03:10 Oxygen Delivery Method Room Air Weight: 82.1 kg Body Mass Index (BMI) 35.3 Intake & Output: Intake and Output for Last 24 Hours 05/07/23 05/08/23 05/09/23 23:59 23:59 23:59 Intake Total 900 / 900 240 / 240 0 / 0 Output Total 650 / 650 Balance 250 / 250 240 / 240 0 / 0 Lab / Micro Data 05/06/23 06:08 05/06/23 06:08 Labs: Laboratory Results - last 24 hr 05/08/23 06:08: POC Glucose 134 H 05/08/23 12:36: POC Glucose 222 H 05/08/23 17:44: POC Glucose 108 H 05/08/23 21:30: POC Glucose 169 H 05/09/23 06:36: POC Glucose 96 Physical Exam Narrative alert, no apparent distress and average body habitus General Appearance: cooperative and well developed Orientation / Consciousness: awake, oriented to person and oriented to place HEENT normocephalic, head/scalp atraumatic and moist oral mucous membranes Eyes PERRL, EOMs intact bilaterally and conjunctivae normal Neck supple, no JVD, thyroid normal and no carotid bruits General: trachea midline Resp normal respiratory effort, no retractions, no use of accessory muscles and clear to auscultation bilaterally Auscultation: Negative for rales, rhonchi or wheezes Cardio S1 normal heart sound, S2 normal heart sound, no murmurs, no rub and no gallops Cardio Narrative: Heart rate and rhythm is irregular GI normal to inspection, nondistended, normoactive bowel sounds, soft to palpation, non-tender and non-distended Extremity no clubbing, cyanosis or edema Skin no rashes or lesions noted General Skin Exam: no breakdown Neuro CN's II-XII intact bilaterally, moves all extremities, no focal motor deficits and no sensory deficits noted Sensorium / Orientation: awake, alert, oriented to person and oriented to place Speech: speech normal Psych affect normal Assessment & Plan Assessment/Plan (1) Debility: PLAN: Plan 1. Acute debility-PT and OT will continue to see the patient, again her insurance carrier has declined to approve her for placement in a [facility] facility, alternate arrangements will have to be made before she is discharged, patient tells me she is unable to take care of herself at home. We are currently awaiting results of an appeal to her insurance carrier regarding transfer to a penitentiary facility. It is likely we will hear the results of the appeal on Wednesday. #2 essential hypertension-patient will remain on her current blood pressure medications #3 type 2 diabetes-patient is to remain on her oral medication for diabetes, blood sugars will be monitored, sliding scale insulin will be given as needed #4 dementia-patient is on Aricept #5 cerebrovascular disease-patient is on aspirin and Plavix #6 chronic atrial fibrillation-patient is on Eliquis and rate appears well controlled on no rate limiting medications at this time, I do not believe the patient needs to be monitored on telemetry at this time #7 iron deficiency anemia-patient will be given IV Venofer, patient does not require blood transfusion at this time #8 stage IIIb chronic kidney disease secondary to type 2 diabetes-complicates care, medical course, recovery, and prognosis Total clinical time spent by myself addressing the patient's medical issues, reviewing all of her data, and collaborating with patient's care team: 25 minutes Charges/Coding Visit Charges Inpatient E&M: 16321 [facility] Hosp L1
[2023-05-09] MEDS: Pioglitazone Hydrochloride 30 MG Tablet PO (10:53)
[2023-05-09] MEDS: Clopidogrel Bisulfate 75 MG Tablet PO (10:54)
[2023-05-09] MEDS: APIXABAN 2.5 MG TABLET (WCH) PO ×2 (10:54→21:20)
[2023-05-09] MEDS: Lisinopril 10 MG Tablet 20 MG PO (10:54)
[2023-05-09] MEDS: Nystatin Powder 15gm Bottle 1 APPLIC TOPICAL ×2 (11:00→21:20)
[2023-05-09] MEDS: Insulin Glargine-YFGN 100 UNIT/ML Pen 20 UNIT SC (11:00)
[2023-05-09] MEDS: Glucerna Shake 120 ML LIQUID PO ×2 (11:00→17:48)
[2023-05-09] MEDS: Insulin Lispro 100 UNIT/ML INSULN.PEN SC (11:00)
[2023-05-09] MEDS: Ferrous Sulfate 325 MG Tablet PO (11:03)
[2023-05-09] MEDS: 0.9% Saline Lock 10 ML Syringe IV (11:03)
[2023-05-09 11:27] LABS: Bedside Glucose 209 mg/dL (74-106)
[2023-05-09 15:10] VITALS: BP 138/54; PULSE 72; RESP 16; TEMP 36.8; O2SAT 98
[2023-05-09 18:04] LABS: Bedside Glucose 119 mg/dL (74-106)
[2023-05-09 21:10] VITALS: BP 146/57; PULSE 69; RESP 18; TEMP 36.7; O2SAT 92
[2023-05-09] MEDS: Donepezil HCl 5 MG Tablet PO (21:20)
[2023-05-09] MEDS: Atorvastatin Calcium 40 MG Tablet PO (21:20)
[2023-05-09] MEDS: Lisinopril 10 MG Tablet PO (21:20)
[2023-05-09 22:07] LABS: Bedside Glucose 146 mg/dL (74-106)
[2023-05-10 03:10] VITALS: BP 135/53; PULSE 79; RESP 18; TEMP 36.6; O2SAT 98
[2023-05-10 07:13] LABS: Bedside Glucose 61 mg/dL (74-106)
[2023-05-10 07:13] LABS: Bedside Glucose 71 mg/dL (74-106)
--- NOTE | 2023-05-10 07:51 | PCM.PN.HOSP ---
Reason for Visit Reason for Visit: Diagnoses Iron deficiency anemia, unspecified (05/01/23) Unspecified atrial fibrillation (05/01/23) Other malaise (05/01/23) Subjective Subjective Patient with no acute events overnight per self and per nursing report. She states that she had recently been constipated and was given a bowel regimen with some softer stools now denies any abdominal pain or cramping. She denies any black dark stools or any bright red blood in her stools on an outpatient setting nor inpatient. Patient understands awaiting skilled facility placement given unsafe conditions at home and unable to care for herself. Patient denies fevers, chills, nausea, emesis, abdominal pain, chest pain or dyspnea. Objective Data Objective Data Vital Signs: Vital Signs Temp Pulse Resp BP Pulse Ox O2 Del Method 97.9 F 79 18 135/53 H 98 Room Air 05/10/23 03:10 05/10/23 03:10 05/10/23 03:10 05/10/23 03:10 05/10/23 03:10 05/10/23 03:10 Oxygen Delivery Method Room Air Weight: 181 lb Body Mass Index (BMI) 35.3 Intake & Output: Intake and Output for Last 24 Hours 05/08/23 05/09/23 05/10/23 23:59 23:59 23:59 Intake Total 240 / 240 1080 / 1080 240 / 240 Balance 240 / 240 1080 / 1080 240 / 240 Lab / Micro Data 05/06/23 06:08 05/06/23 06:08 Labs: Laboratory Results - last 24 hr 05/09/23 11:00: POC Glucose 209 H 05/09/23 17:45: POC Glucose 119 H 05/09/23 21:22: POC Glucose 146 H 05/10/23 06:31: POC Glucose 61 L 05/10/23 06:53: POC Glucose 71 L Physical Exam Narrative Physical Examination: General: Awake, alert, oriented x 3 and cooperative, seated upright in PCU bed in no apparent distress. Skin: Normal color, normal turgor, no icterus, no cyanosis except occasional staged ecchymoses. HEENT: AT/NC, EOMI, PERRLA, MMM. Lungs: CTA bilaterally, moderate effort, mild decrease BL bases, no rales, ronchi or wheezing. Heart: Irregular, rate controlled; no gallop, rub audible. Abdomen: Soft, obese, NTTP, ND, distant normal BS. Extremities: No cyanosis, no clubbing, mild ankle nonpitting edema. Neurological: Patient awake, alert, oriented as noted, cognitive function intact; pupils equally reactive to light and accommodation, cranial nerves grossly normal, moving all 4 extremities, no focal deficits, strength moderately globally decreased, chronically wheelchair-bound mostly functionally, improving since initial presentation. Psychiatric: Affect appears normal, no acute evidence of depressive or anxiety feelings. Assessment & Plan Assessment/Plan (1) Adult failure to thrive: PLAN: Plan The patient is a 77 y/o F w/ PMHx: PAF, HTN, HLD, Dementia unclear type with unclear behavioral disturbance history, Diabetes mellitus type II, CKD stage IIIb, Chronic normocytic anemia/Fe deficiency anemia, Hx CVD who presents to the [facility] ED on 05/01/23 secondary to initially coming in with her son as she is wheelchair-bound and dependent on her son for care and as her son was admitted she was unable to safely go home therefore admitted. #1. Adult failure to thrive with debility, wheelchair-bound, unable to safely care for self: Admitted to [facility] initially although transition to PCU given onset of atrial fibrillation felt to be new onset at that time, currently awaiting assessment for skilled placement, PT/OT/case management consulted with ongoing assessments, maintain on fall precautions, unfortunately given her son's recent admission she needs to be placed for her own safety. #2. PAF, new onset during admission but from her hospitalist notes potentially chronic: Eventually taken off of telemetry, appears rate controlled, continued on Eliquis regimen however given history and falls if patient does return to home and has any recurrent issues may necessitate discontinuation. #3. Acute Renal Insufficiency on Chronic Kidney Disease Stage IIIb likely secondary to underlying hypertensive and diabetic disease history: Admission BUN/Cr 1.85, baseline renal function remotely in 2018 in 2019 0.9 however no recent labs, currently renal function has improved with most recent 05/06/2023 creatinine 1.31 likely her to current baseline, repeat BMP in AM. #4. Dementia, unclear type with unclear behavioral disturbance history: We will continue patient home Aricept, complicates presentation, PT/OT/case management consulted for discharge planning, preferentially skilled placement given unsafe for any return to home concept without caregiver. #5. History CVA/CVD: We will continue patient home recs, de-escalate off of baby aspirin is recently initiated on Eliquis given atrial fibrillation is noted, continue home lisinopril and statin therapy regimen #6. Hypertension: Continue home regimen including lisinopril, PRN hydralazine. #7. Hyperlipidemia: We will continue patient home statin therapy. #8. Diabetes mellitus type II: Hold oral home regimen, will continue patient home insulin regimen, ADA diet, accu checks w/ ISS. #9. Chronic normocytic anemia/iron deficiency anemia: We will continue chronic iron supplementation, admission hemoglobin 8.8, baseline hemoglobin appears primarily 7-8 although this is more recent, 05/06/2023 hemoglobin 7.1. Given recent initiation of Eliquis regimen coupled with antiplt therapy to be cautious we will obtain guaiac; however, if placement occurs before this will request to be performed at that facility with follow-up outpatient. #10. Obesity: Weight loss and lifestyle changes encouraged. #11. Abnormal SINGH: TSH upon presentation 9.09 however 05/01/2023 TSH 3.48, free T4 obtained 0.99, subclinical, continue to follow outpatient. #12. DVT prophylaxis: We will continue Eliquis regimen. Charges/Coding Visit Charges Inpatient E&M: 05332 Init Hosp L2
--- NOTE | 2023-05-10 08:05 | CASEMGMT ---
Addendum entered by Monalisa Scott 05/10/23 10:08: SOFIE notified physician and patient of approval. SOFIE completed PASRR in [employer] system. Monalisa PICKENS Original Note: SOFIE received a voice mail from [employer] and the denial was overturned. Patient is approved to go to [place]. The auth number is: [id number]. SOFIE will notify patient and physician. Monalisa PICKENS
[2023-05-10 08:48] VITALS: BP 134/70; PULSE 79; RESP 16; TEMP 36.3; O2SAT 100
[2023-05-10] MEDS: Pioglitazone Hydrochloride 30 MG Tablet PO (08:53)
[2023-05-10] MEDS: Insulin Glargine-YFGN 100 UNIT/ML Pen 20 UNIT SC (09:00)
[2023-05-10] MEDS: APIXABAN 2.5 MG TABLET (WCH) PO (09:03)
[2023-05-10] MEDS: Nystatin Powder 15gm Bottle 1 APPLIC TOPICAL (09:03)
[2023-05-10] MEDS: Lisinopril 10 MG Tablet 20 MG PO (09:04)
[2023-05-10] MEDS: Acetaminophen 325 MG Tablet 650 MG PO (09:04)
[2023-05-10] MEDS: Clopidogrel Bisulfate 75 MG Tablet PO (09:04)
[2023-05-10] MEDS: Glucerna Shake 120 ML LIQUID PO (09:05)
--- NOTE | 2023-05-10 10:10 | PCM.TXEXTCAR ---
Diet Diet Order/Speech Therapy: 05/01/23 12:21 Diet: Carbohydrate Controlled Dietary Modifications:: Cardiac / Heart Healthy Routine Orders/Code Status Suppository Type: Dulcolax 10mg Suppository Frequency: Daily PRN Keep PO Greater than or Equal to (%): 92 Routine Lab Work: - (Please repeat CBC, CMP in 1 week. May consider repeat TSH/FT4 in 6-8 weeks.) Code Status: Full Code Suggestions for Active Care Change Position every (hours): 2 Hours to sit in a chair: 4 Times a day to sit in chair: 3 Therapies Weight Bearing: Weight bearing as tolerated (Uses wheelchair baseline.) Physical Therapy: Eval and Treat Occupational Therapy: Eval and Treat Problem/Diagnosis (1) Adult failure to thrive: Status: Acute Code(s): R62.7 - Adult failure to thrive Comment: Discharge diagnoses: #1. Adult failure to thrive with debility, wheelchair-bound, unable to safely care for self #2. PAF, new onset during admission but from her hospitalist notes potentially chronic #3. Acute Renal Insufficiency versus AVELINO (unclear baseline more recently as remote labs) on Chronic Kidney Disease Stage IIIb likely secondary to underlying hypertensive and diabetic disease history #4. Dementia, unclear type with unclear behavioral disturbance history #5. History CVA/CVD #6. Hypertension #7. Hyperlipidemia #8. Diabetes mellitus type II #9. Chronic normocytic anemia/iron deficiency anemia #10. Obesity #11. Abnormal TSH (TSH upon presentation 9.09 however 05/01/2023 TSH 3.48, free T4 obtained 0.99, subclinical) Allergies/Procedures Done in Hospital Allergies No Known Allergies Allergy (Verified 05/01/23 10:10) Procedures: 2-D Echocardiogram and EKG Type of Care/Length of Stay Estimated LOS: Convalescent Care Less Than 30 days Type of Care Needed: Skilled Rehab Potential: Fair Prognosis: Fair Additional Orders/Day of Discharge Additional Orders: (1) Encourage HOB, (2) IS 10x/hr 7a-7p while awake, (3) Fall precautions, (4) OOB to chair with meals recommended. Day of Discharge: 05/10/23 Dietary and Speech Recommendations Dietitian Recommendations/Changes: Will adjust diet to Carbohydrate-controlled/cardiac. Will decrease ONS to 120mL glucerna shake TID w/ medpass. Trend weights as available and d/c glucerashley shake as needed on follow-up. Discharge Plan Admission Admit Date/Time: 05/01/23 12:35 Primary Reason for Your Visit: Adult FTT, PAF, Renal insufficiency on CKD Attending Provider: Shelby Wallace Primary Care Provider: Namita Hassan Consulting Providers: Milad Silva; Patel Morrell Instructions Additional Instructions / Restrictions: ADMISSION REVIEW/SPECIFIC ITEMS TO FOLLOW: #1. Atrial fibrillation, new onset during admission: Asymptomatic thus eventually telemetry removed. Give stroke risk you were started on eliquis lower dose given renal function at onset as well as age, but given history as discussed if fall risk notable or recurrent falls may need to discontinue. You are not on any rate or rhythm agent at this this point as it was rate controlled during admission. You were already on aspirin and plavix thus given addition of eliquis your baby aspirin was discontinued. #2. Acute renal insufficiency versus AVELINO on Chronic Kidney Disease Stage IIIb likely secondary to underlying hypertensive and diabetic disease history w/ admission BUN/Cr 3/1.85, baseline renal function remotely in 2018 in 2019 Creatinine 0.9 however no recent labs, 05/06/2023 creatinine 1.31. We held your lasix and HCTZ regimen given unclear renal history and concern for renal function with BP appropriate. Please have repeat BP assessments and recheck renal function with resumption of your BP regimen if appropriate otherwise may be appropriate to discontinue. #3. Chronic normocytic anemia/iron deficiency anemia: During the admission you were maintained on chronic iron supplementation, admission hemoglobin 8.8, baseline hemoglobin appears primarily 7-8 although this is more recent, 05/06/2023 hemoglobin 7.1. Given recent initiation of Eliquis regimen coupled with antiplt therapy to be cautious we had ordered guiac but this was not obtained prior to discharge and again your levels were stable compared to prior thus recommendation continued assessment upon SNF transition/outpatient. #4. Abnormal SINGH: TSH upon presentation 9.09 however 05/01/2023 TSH 3.48, free T4 obtained 0.99, subclinical, continue to follow outpatient and may consider repeat in 6-8 weeks if appropriate at that time. Discharge Orders/Prescriptions Prescriptions: New nystatin [Nyamyc] 100,000 unit/gram Powder 1 applic topical BID 30 Days Qty: 0 0RF Protocol: *Topical Application Instructions APPLICATION INSTRUCTIONS: apply to affected area Rx Instructions: Continue application until intertrigo resolved. insulin lispro [Humalog KwikPen Insulin] 100 unit/mL Insulin Pen See Protocol subcut TIDAC 30 Days Qty: 0 0RF Protocol: 3. Sliding Scale Insulin Med Dosing Condition: 150-189 mg/dl = 1 unit Condition: 190-229 mg/dl = 2 units Condition: 230-269 mg/dl = 3 units Condition: 270-309 mg/dl = 4 units Condition: 310-349 mg/dl = 5 units Condition: 350-399 mg/dl = 6 units Condition: 400-449 mg/dl = 7 units Condition: Greater than 449 call physician Protocol Text: - Use for Total Daily Dose of Insulin 37-55 units - Obsese, infected, or steroid patients MEDIUM DOSING ALGORITHIM Rx Instructions: Sliding Scale Insulin Medium Dosin-189 BS=1 u, 190-229 BS=2 u, 230-269 BS=3 u, 270-309 BS=4 u, 310-349 BS=5 u, 350-399 BS=6 u, 400 BS= 7 u Glucerna 1.2 Davie 0.06-1.2 gram-kcal/mL Liquid 120 ml PO TIDCM 30 Days Qty: 0 0RF ferrous sulfate [FeroSul] 325 mg (65 mg iron) Tablet 325 mg PO DAILY@1200 30 Days Qty: 0 0RF Eliquis 5 mg Tablet 2.5 mg PO BID 30 Days Qty: 30 0RF Continued atorvastatin 40 mg tablet 40 mg PO QDAY donepezil 5 mg tablet 5 mg PO QHS atenolol 25 mg tablet 25 mg PO BID enalapril maleate 10 mg tablet 10 mg PO .COMPLEX Patient Comments: 10 mg PO 2 tablets every morning and 1 tablet in the evening Rx Instructions: 10 mg PO 2 tablets every morning and 1 tablet in the evening clopidogrel 75 mg tablet 75 mg PO QDAY nitroglycerin 0.4 mg tablet, sublingual 0.4 mg SUBLINGUAL Q5M PRN (Reason: chest pain) Qty: 25 3RF pioglitazone 30 mg tablet 30 mg PO DAILY Lantus Solostar U-100 Insulin 100 unit/mL (3 mL) insulin pen 18 unit SC DIRECTED Patient Comments: 20 UNITS Held hydrochlorothiazide 25 mg tablet 25 mg PO QAM Hold Instructions: Resume on 05/17/23. May reassess renal function and BP and if appropriate may consider adding back otherwise may discontinue. furosemide 20 mg tablet 20 mg PO QDAY Hold Instructions: Resume on 05/17/23. May reassess renal function and BP and if appropriate may consider adding back otherwise may discontinue. Discontinued aspirin 81 mg tablet,delayed release (DR/EC) 81 mg PO DAILY Referrals / Follow Up: Namita Hassan MD [Primary Care Provider] - (Follow-up within 3-5 days to review admission, medication changes.) Disposition Disposition (needs filled in before D/C Order can be placed): Group Home Facility
--- NOTE | 2023-05-10 10:15 | PCM.DC.SUM ---
Providers Date of Admission: 05/01/23 Date of Discharge: 05/10/23 Primary Care Physician: Dr. Namita Hassan MD Reason For Visit: DEBILITY Diagnosis Discharge Diagnosis (1) Adult failure to thrive: Status: Acute Code(s): R62.7 - Adult failure to thrive Plan: Discharge Diagnoses: #1. Adult failure to thrive with debility, wheelchair-bound, unable to safely care for self #2. PAF, new onset during admission but from her hospitalist notes potentially chronic #3. Acute Renal Insufficiency versus AVELINO (unclear baseline more recently as remote labs) on Chronic Kidney Disease Stage IIIb likely secondary to underlying hypertensive and diabetic disease history #4. Dementia, unclear type with unclear behavioral disturbance history #5. History CVA/CVD #6. Hypertension #7. Hyperlipidemia #8. Diabetes mellitus type II #9. Chronic normocytic anemia/iron deficiency anemia #10. Obesity #11. Abnormal TSH (TSH upon presentation 9.09 however 05/01/2023 TSH 3.48, free T4 obtained 0.99, subclinical) Medications at Discharge Home Medications atenolol 25 mg tablet 25 mg PO BID 12/01/17 atorvastatin 40 mg tablet 40 mg PO QDAY 12/01/17 donepezil 5 mg tablet 5 mg PO QHS 12/01/17 enalapril maleate 10 mg tablet 10 mg PO .COMPLEX 12/01/17 furosemide 20 mg tablet 20 mg PO QDAY 12/01/17 hydrochlorothiazide 25 mg tablet 25 mg PO QAM 12/01/17 clopidogrel 75 mg tablet 75 mg PO QDAY 01/14/18 nitroglycerin 0.4 mg sublingual tablet 0.4 mg sublingual Q5M PRN chest pain #25 tabs 01/14/18 insulin glargine 100 unit/mL (3 mL) subcutaneous pen (Lantus Solostar U-100 Insulin) 18 unit subcut DIRECTED 08/21/20 pioglitazone 30 mg tablet 30 mg PO DAILY 08/21/20 apixaban 5 mg tablet (Eliquis) 2.5 mg (1/2 x 5 mg) PO BID 30 days #30 tabs 05/10/23 ferrous sulfate 325 mg (65 mg iron) tablet (FeroSul) 325 mg PO DAILY@1200 30 days #0 tabs 05/10/23 insulin lispro 100 unit/mL subcutaneous pen (Humalog KwikPen (U-100) Insulin) See Protocol subcut TIDAC 30 days #0 mL 05/10/23 nutrition tx glu intol,lac-free,soy-fiber 0.06 gram-1.2 kcal/mL liquid (Glucerna 1.2 Davie) 120 ml PO TIDCM 30 days #0 mL 05/10/23 nystatin 100,000 unit/gram topical powder (Nyamyc) 1 applic topical BID 30 days #0 grams 05/10/23 Hospital Course Operations None Procedures EKG and Transesophageal Echo Summary of Care Provided Minutes Spent on Discharge: 35 Hospital Course: The patient is a 77 y/o F w/ PMHx: PAF, HTN, HLD, Dementia unclear type with unclear behavioral disturbance history, Diabetes mellitus type II, CKD stage IIIb, Chronic normocytic anemia/Fe deficiency anemia, Hx CVD who presented to the [facility] ED on 05/01/23 secondary to initially coming in with her son as she is wheelchair-bound and dependent on her son for care and as her son was admitted she was unable to safely go home therefore admitted. During admission patient with onset of noted new atrial fibrillation, rate controlled. Transitioned from PCU to MS, ECHO obtained with LVEF 65%, at least grade 2 diastolic dysfunction, moderate mitral annular calcification, RVSP 42 mmHg, mild aortic stenosis, mild AV insufficiency. TSH 9.09 however 05/01/2023 TSH 3.48, free T4 obtained 0.99, subclinical, with recommended follow-up outpatient. Patient eventually taken off of telemetry, rate controlled, initiated and continued on lower dose Eliquis given renal function upon onset however given history and falls if patient does return to home and has any recurrent issues may necessitate discontinuation which was discussed with her at length. During presentation, admission BUN/Cr 3/1.85, baseline renal function remotely in 2018 in 2019 0.9 however no recent labs, currently renal function has improved with most recent 05/06/2023 creatinine 1.31 likely her to current baseline, repeat BMP in AM. Her nephrotoxic medications lasix and HCTZ were held with appropriate BP following and only resumption of lisinopril and given history of poor hydration and occasional no intake with planned reassessment BP and renal function at SNF discharge with restart if appropriate at that time otherwise D/C. Also, given initiation eliquis, de-escalated off of baby aspirin with continuation eliquis/plavix given CVD/CVA history. She was continued on chronic iron supplementation, admission hemoglobin 8.8, baseline hemoglobin appears primarily 7-8 although this is more recent, 05/06/2023 hemoglobin 7.1. Given recent initiation of Eliquis regimen coupled with antiplt therapy to be cautious requested guaiac; however, placement occurred before performed thus recommended at discharge to be obtained outpatient with follow-up outpatient. Weight / BMI Weight Weight: 181 lb Body Mass Index (BMI) 35.3 ABG / Lab / Microbiology Data 05/06/23 06:08 05/06/23 06:08 Laboratory: Laboratory Results - last 24 hr 05/09/23 11:00: POC Glucose 209 H 05/09/23 17:45: POC Glucose 119 H 05/09/23 21:22: POC Glucose 146 H 05/10/23 06:31: POC Glucose 61 L 05/10/23 06:53: POC Glucose 71 L D/C Instructions Discharge Diet: 1800 Calorie Control Diet Discharge Activity: Return to Normal Activity Call your doctor if you observe: Fever of 101 or Higher, Numbness or Tingling, Inability to urinate, Inability to have a bowel movement, Shortness of breath, Dizziness, Chest pain, Increased palpitations (irregular heartbeat) and Uncontrolled pain Meaningful Use Info Meaningful Use Diagnoses (Choose all that apply): None applicable Discharge Plan Admission Admit Date/Time: 05/01/23 12:35 Primary Reason for Your Visit: Adult FTT, PAF, Renal insufficiency on CKD Attending Provider: Shelby Wallace Primary Care Provider: Namita Hassan Consulting Providers: Milad Silva; Patel Morrell Instructions Additional Instructions / Restrictions: ADMISSION REVIEW/SPECIFIC ITEMS TO FOLLOW: #1. Atrial fibrillation, new onset during admission: Asymptomatic thus eventually telemetry removed. Give stroke risk you were started on eliquis lower dose given renal function at onset as well as age, but given history as discussed if fall risk notable or recurrent falls may need to discontinue. You are not on any rate or rhythm agent at this this point as it was rate controlled during admission. You were already on aspirin and plavix thus given addition of eliquis your baby aspirin was discontinued. #2. Acute renal insufficiency versus AVELINO on Chronic Kidney Disease Stage IIIb likely secondary to underlying hypertensive and diabetic disease history w/ admission BUN/Cr 3/1.85, baseline renal function remotely in 2018 in 2019 Creatinine 0.9 however no recent labs, 05/06/2023 creatinine 1.31. We held your lasix and HCTZ regimen given unclear renal history and concern for renal function with BP appropriate. Please have repeat BP assessments and recheck renal function with resumption of your BP regimen if appropriate otherwise may be appropriate to discontinue. #3. Chronic normocytic anemia/iron deficiency anemia: During the admission you were maintained on chronic iron supplementation, admission hemoglobin 8.8, baseline hemoglobin appears primarily 7-8 although this is more recent, 05/06/2023 hemoglobin 7.1. Given recent initiation of Eliquis regimen coupled with antiplt therapy to be cautious we had ordered guiac but this was not obtained prior to discharge and again your levels were stable compared to prior thus recommendation continued assessment upon SNF transition/outpatient. #4. Abnormal SINGH: TSH upon presentation 9.09 however 05/01/2023 TSH 3.48, free T4 obtained 0.99, subclinical, continue to follow outpatient and may consider repeat in 6-8 weeks if appropriate at that time. Discharge Orders/Prescriptions Prescriptions: New nystatin [Nyamyc] 100,000 unit/gram Powder 1 applic topical BID 30 Days Qty: 0 0RF Protocol: *Topical Application Instructions APPLICATION INSTRUCTIONS: apply to affected area Rx Instructions: Continue application until intertrigo resolved. insulin lispro [Humalog KwikPen Insulin] 100 unit/mL Insulin Pen See Protocol subcut TIDAC 30 Days Qty: 0 0RF Protocol: 3. Sliding Scale Insulin Med Dosing Condition: 150-189 mg/dl = 1 unit Condition: 190-229 mg/dl = 2 units Condition: 230-269 mg/dl = 3 units Condition: 270-309 mg/dl = 4 units Condition: 310-349 mg/dl = 5 units Condition: 350-399 mg/dl = 6 units Condition: 400-449 mg/dl = 7 units Condition: Greater than 449 call physician Protocol Text: - Use for Total Daily Dose of Insulin 37-55 units - Obsese, infected, or steroid patients MEDIUM DOSING ALGORITHIM Rx Instructions: Sliding Scale Insulin Medium Dosin-189 BS=1 u, 190-229 BS=2 u, 230-269 BS=3 u, 270-309 BS=4 u, 310-349 BS=5 u, 350-399 BS=6 u, 400 BS= 7 u Glucerna 1.2 Davie 0.06-1.2 gram-kcal/mL Liquid 120 ml PO TIDCM 30 Days Qty: 0 0RF ferrous sulfate [FeroSul] 325 mg (65 mg iron) Tablet 325 mg PO DAILY@1200 30 Days Qty: 0 0RF Eliquis 5 mg Tablet 2.5 mg PO BID 30 Days Qty: 30 0RF Continued atorvastatin 40 mg tablet 40 mg PO QDAY donepezil 5 mg tablet 5 mg PO QHS atenolol 25 mg tablet 25 mg PO BID enalapril maleate 10 mg tablet 10 mg PO .COMPLEX Patient Comments: 10 mg PO 2 tablets every morning and 1 tablet in the evening Rx Instructions: 10 mg PO 2 tablets every morning and 1 tablet in the evening clopidogrel 75 mg tablet 75 mg PO QDAY nitroglycerin 0.4 mg tablet, sublingual 0.4 mg SUBLINGUAL Q5M PRN (Reason: chest pain) Qty: 25 3RF pioglitazone 30 mg tablet 30 mg PO DAILY Lantus Solostar U-100 Insulin 100 unit/mL (3 mL) insulin pen 18 unit SC DIRECTED Patient Comments: 20 UNITS Held hydrochlorothiazide 25 mg tablet 25 mg PO QAM Hold Instructions: Resume on 05/17/23. May reassess renal function and BP and if appropriate may consider adding back otherwise may discontinue. furosemide 20 mg tablet 20 mg PO QDAY Hold Instructions: Resume on 05/17/23. May reassess renal function and BP and if appropriate may consider adding back otherwise may discontinue. Discontinued aspirin 81 mg tablet,delayed release (DR/EC) 81 mg PO DAILY Referrals / Follow Up: Namita Hassan MD [Primary Care Provider] - (Follow-up within 3-5 days to review admission, medication changes.) Disposition Disposition (needs filled in before D/C Order can be placed): Long Term Facility Charges/Coding Visit Charges Inpatient E&M: 26300 Disch Hosp >30min
--- NOTE | 2023-05-10 10:43 | CASEMGMT ---
Discharge Planning Discharge orders, signed med list, and transport time sent to [place] via [facility]. Patients son, Song, will transport her at 11:30. Patient, SW, and nursing notified. Latanya Boss, Discharge Planning Asst.
== END 2023-05-10 09:58 | disposition skilled nursing facility (03) ==
LOC: ED 12:48 → MS3 13:07 → PCU 05-02 04:32
PROVIDERS: Internal Medicine; Physician Assistant; Emergency Provider Emergency Medicine; PCP Internal Medicine; Visit Provider Family Medicine
DX: R62.7 Adult failure to thrive (principal); F03.90 Unspecified dementia, unspecified severity, without behavioral disturbance, psychotic disturbance, mood disturbance, and anxiety; E11.22 Type 2 diabetes mellitus with diabetic chronic kidney disease; E11.42 Type 2 diabetes mellitus with diabetic polyneuropathy; I48.0 Paroxysmal atrial fibrillation; Z79.4 Long term (current) use of insulin; N18.32 Chronic kidney disease, stage 3b; E66.9 Obesity, unspecified; I12.9 Hypertensive chronic kidney disease with stage 1 through stage 4 chronic kidney disease, or unspecified chronic kidney disease; R26.2 Difficulty in walking, not elsewhere classified; R00.1 Bradycardia, unspecified; E78.5 Hyperlipidemia, unspecified; Z79.01 Long term (current) use of anticoagulants; R53.81 Other malaise; Z99.3 Dependence on wheelchair; I08.3 Combined rheumatic disorders of mitral, aortic and tricuspid valves; I25.10 Atherosclerotic heart disease of native coronary artery without angina pectoris; D50.9 Iron deficiency anemia, unspecified; Z79.82 Long term (current) use of aspirin; E86.0 Dehydration; I25.2 Old myocardial infarction; Z79.899 Other long term (current) drug therapy; Z79.02 Long term (current) use of antithrombotics/antiplatelets; Z68.35 Body mass index [BMI] 35.0-35.9, adult; R94.6 Abnormal results of thyroid function studies
CPT/HCPCS: 36415; 80048; 82607; 82728; 82746; 82962; 83540; 83550; 83735; 84439; 84443; 85025; 93005; 93306; 96361; 96365; 96366; 97110; 97116; 97163; 97166; 97530; 97535; 97802; 97803; 99221; 99284; J7030; J7040; J7050; A4216; G0378; J2916

== ENCOUNTER 2023-05-14 20:28 | Inpatient (IN) | payer MEDICARE, SELFPAY ==
[2023-05-14 20:29] VITALS: BP 125/34; PULSE 58; RESP 18; TEMP 36.2; O2SAT 95; BMI 38.5
[2023-05-14 20:35] VITALS: BP 73/60
--- NOTE | 2023-05-14 20:50 | EKG12_ITS ---
Test Reason : REPEAT EKG Blood Pressure : / mmHG Vent. Rate : 086 BPM Atrial Rate : 058 BPM P-R Int : 000 ms QRS Dur : 114 ms QT Int : 468 ms P-R-T Axes : 000 -50 009 degrees QTc Int : 560 ms Atrial fibrillation Left axis deviation Low voltage QRS Right bundle branch block Abnormal ECG Confirmed by JAZZY ZAMORA, JUDI ([id number]), editor trade journal [employer]A STILES ([id number]) on 05/15/2023 10:07:16 AM Referred By: TIARA Confirmed By:JUDI PURCELL MD
[2023-05-14 20:59] LABS: Absolute Neutrophil Count 4.7 X10^3/uL (2.0-7.7); Basophil# 0.02 X10^3/uL; Basophil% 0.3 % (0-1); Eosinophils% 3.1 % (0-5); Hematocrit 24.4 % (37-47); Hemoglobin 7.1 g/dL (12.0-15.0); Lymphocyte % 14.2 % (19-41); Mean Corp Hgb Conc 29.1 g/dL (32-36); Mean Corpuscular Hgb 23.7 pg (27.0-32.0); Mean Corpuscular Volume 81.6 fL (81-99); Monocyte# 0.47 X10^3/uL; Monocyte% 7.4 % (0-10); NRBC Flagged by Analyzer 0 % (0-5); Neutrophil # 4.71 X10^3/uL (2.7-7.7); Neutrophil % 74.2 % (47-70); POSITIVE MORPHOLOGY YES; Platelet Count 261 K/mm3 (150-450); RBC Distribution Width CV 25.6 % (11.6-14.6); RBC Distribution Width SD 76.4 fl (35.1-43.9); Red Blood Count 2.99 M/mm3 (4.2-5.4); White Blood Count 6.4 K/mm3 (4.4-11.0)
[2023-05-14 21:07] LABS: Differential Indicated SCAN CRITERIA MET
[2023-05-14 21:13] LABS: Anion Gap 5 (5-15); BUN 80 mg/dL (7-18); BUN/Creat Ratio 50.3 RATIO (10-20); Calcium,Total 9.1 mg/dL (8.5-10.1); Chloride 101 mmol/L (98-107); Creatinine, Serum 1.59 mg/dL (0.55-1.02); EST Glomerular Filtration Rate 33 mL/min (>60); Est Glom Filt Rate - Afr Amer 40 mL/min (>60); Estimated Creatinine Clearance 21.28 ml/min; Glucose 187 mg/dL (74-106); Potassium 6.4 mmol/L (3.5-5.1); Sodium Level 129 mmol/L (136-145)
[2023-05-14 21:41] LABS: Lactic Acid 0.8 mmol/L (0.4-1.9)
[2023-05-14 21:50] VITALS: BP 136/58; PULSE 51; RESP 30
[2023-05-14 22:01] VITALS: BP 123/46; PULSE 65; RESP 14
[2023-05-14 22:07] LABS: Anisocytosis 2+; Differential Comment SCANNED; Macrocytosis 1+; Microcytosis 1+
[2023-05-14 22:09] LABS: Crenated RBC 1+; Hypochromasia 1+
[2023-05-14 22:10] LABS: Ovalocyte RARE; Polychromasia RARE
--- NOTE | 2023-05-14 22:19 | EKG12_ITS ---
Test Reason : DYSRHYTHMIA Blood Pressure : / mmHG Vent. Rate : 076 BPM Atrial Rate : 277 BPM P-R Int : 000 ms QRS Dur : 130 ms QT Int : 476 ms P-R-T Axes : 000 -54 027 degrees QTc Int : 535 ms Atrial fibrillation with premature ventricular or aberrantly conducted complexes Right bundle branch block Left anterior fascicular block Bifascicular block Abnormal ECG Confirmed by JAZZY ZAMORA, JUDI ([id number]), editor producer [employer]A STILES ([id number]) on 05/15/2023 10:09:41 AM Referred By: TIARA Confirmed By:JUDI PURCELL MD
--- NOTE | 2023-05-14 22:20 | EX.ED.DYSGE1 ---
HPI History of Present Illness Chief Complaint: Abn Labs [facility] Medical History Atherosclerotic heart disease of [place] coronary artery without angina pectoris CKD (chronic kidney disease), stage III CVA (cerebral vascular accident) Dementia Essential hypertension GERD (gastroesophageal reflux disease) Nonrheumatic aortic (valve) insufficiency Old myocardial infarction PAF (paroxysmal atrial fibrillation) Polyneuropathy Type 2 diabetes mellitus Home Medications atenolol 25 mg tablet 25 mg PO BID 12/01/17 [History Last Taken Unknown] atorvastatin 40 mg tablet 40 mg PO QDAY 12/01/17 [History Last Taken Unknown] donepezil 5 mg tablet 5 mg PO QHS 12/01/17 [History Last Taken Unknown] enalapril maleate 10 mg tablet 10 mg PO .COMPLEX 12/01/17 [History Last Taken Unknown] furosemide 20 mg tablet 20 mg PO QDAY 12/01/17 [History Last Taken Unknown] hydrochlorothiazide 25 mg tablet 25 mg PO QAM 12/01/17 [History Last Taken Unknown] clopidogrel 75 mg tablet 75 mg PO QDAY 01/14/18 [History Last Taken Unknown] nitroglycerin 0.4 mg sublingual tablet 0.4 mg sublingual Q5M PRN chest pain #25 tabs 01/14/18 [Rx Last Taken Unknown] insulin glargine 100 unit/mL (3 mL) subcutaneous pen (Lantus Solostar U-100 Insulin) 18 unit subcut DIRECTED 08/21/20 [History Last Taken Unknown] pioglitazone 30 mg tablet 30 mg PO DAILY 08/21/20 [History Last Taken Unknown] apixaban 5 mg tablet (Eliquis) 2.5 mg (1/2 x 5 mg) PO BID 30 days #30 tabs 05/10/23 [Rx Last Taken Unknown] ferrous sulfate 325 mg (65 mg iron) tablet (FeroSul) 325 mg PO DAILY@1200 30 days #0 tabs 05/10/23 [Rx Last Taken Unknown] insulin lispro 100 unit/mL subcutaneous pen (Humalog KwikPen (U-100) Insulin) See Protocol subcut TIDAC 30 days #0 mL 05/10/23 [Rx Last Taken Unknown] nutrition tx glu intol,lac-free,soy-fiber 0.06 gram-1.2 kcal/mL liquid (Glucerna 1.2 [place]ie) 120 ml PO TIDCM 30 days #0 mL 05/10/23 [Rx Last Taken Unknown] nystatin 100,000 unit/gram topical powder (Nyamyc) 1 applic topical BID 30 days #0 grams 05/10/23 [Rx Last Taken Unknown] Allergy/AdvReac Type Severity Reaction Status Date / Time No Known Allergies Allergy Verified 05/14/23 20:29 Family History Mother Diabetes Son Heart disease Myocardial infarction Daughter Diabetes Daughter Diabetes Surgical History History of breast biopsy History of cardiac catheterization History of cholecystectomy History of colonoscopy (~2010) History of esophagogastroduodenoscopy (EGD) (~2001) Social History Smoking Status: Never smoker alcohol intake: never substance use type: does not use caffeine: Yes Type: coffee Number of servings: 4 what type of physical activity do you participate in: none seatbelt use: always do you feel safe at home: Yes EXAM Physical Exam Const Vital Signs: 05/14/23 20:29 05/14/23 20:33 05/14/23 20:35 Temperature 97.1 F L Temperature Source Oral Pulse Rate 58 L Respiratory Rate 18 Respiratory Effort Normal Non-Labored Respiratory Pattern Normal Blood Pressure 125/34 H 73/60 L Blood Pressure Mean 64 64 Pulse Ox 95 Oxygen Delivery Method Room Air 05/14/23 21:50 05/14/23 22:01 Temperature Temperature Source Pulse Rate 51 L 65 Respiratory Rate 30 H 14 Respiratory Effort Respiratory Pattern Blood Pressure 136/58 H 123/46 H Blood Pressure Mean 84 71 Pulse Ox Oxygen Delivery Method Room Air Room Air [facility] Lab Data Attestation: I reviewed the patient's lab results. Lab results narrative: Hemoglobin 7.1 with hematocrit 24.4 which is about baseline. BUN to creatinine ratio is elevated. BUN/creatinine ratio is 50:1. Glucose is 187 with normal CO2 and anion gap. Potassium is elevated 6.4. Patient's QRS duration and T wave morphology is unchanged from prior dated May 02, 2023. Since patient has no EKG changes she did not receive calcium chloride or calcium gluconate. Since she is not acidotic bicarb is not indicated. She was treated with insulin and D25. The ED hyperkalemic order set was used. Patient is symptomatic with her hemoglobin 7.1. She probably will require 1 unit of blood. She also was hyponatremic which is new. With a sodium of 129 there is no need for emergent correction. Stool for Hemoccult blood is negative. Labs: Laboratory Results - last 24 hr 05/14/23 20:45 WBC 6.4 RBC 2.99 L Hgb 7.1 L Hct 24.4 L MCV 81.6 MCH 23.7 L MCHC 29.1 L RDW Std Deviation 76.4 H RDW Coeff of Deep 25.6 H Plt Count 261 MPV 11.0 Immature Gran % (Auto) 0.800 Neut % (Auto) 74.2 H Lymph % (Auto) 14.2 L Pershing % (Auto) 7.4 Eos % (Auto) 3.1 Baso % (Auto) 0.3 Absolute Neuts (auto) 4.7 Absolute Lymphs (auto) 0.90 Nucleated RBC % 0 Differential Comment SCANNED Polychromasia RARE Hypochromasia 1+ Anisocytosis 2+ Microcytosis 1+ Macrocytosis 1+ Ovalocytes RARE Crenated Cell 1+ Sodium 129 L Potassium 6.4 H* Chloride 101 Carbon Dioxide 23.0 Anion Gap 5 BUN 80 H Creatinine 1.59 H Estim Creat Clear Calc 21.28 Est GFR (MDRD) Af Amer 40 L Est GFR (MDRD) Non-Af 33 L BUN/Creatinine Ratio 50.3 H Glucose 187 H Lactic Acid 0.8 Calcium 9.1 Blood Type O POSITIVE Antibody Screen NEGATIVE EKG Initial EKG: Interpretation: Atrial Fibrillation (Rate is 76. QRS duration 130 ms. QT duration 476 ms. 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 Stool for occult testing is still pending. Discharge Plan Dx/Rx/DC Orders Clinical Impression: Symptomatic anemia, Essential hypertension, Debility, Type 2 diabetes mellitus, Signs and symptoms of anemia, Acute hyperkalemia, Acute hyponatremia, Renal insufficiency, Afib, Acute hypotension Disposition Disposition: Acute Care Hospital [facility]
--- NOTE | 2023-05-14 22:32 | PCM.HP.STD ---
HPI - General General Date of Admission: 05/14/23 Date of Service: 05/14/23 Chief Complaint: Abdominal pain, low Hgb, concern GI bleed. HPI Narrative The patient is a 77 y/o F w/ PMHx: CKD stage IIIb, PAF, HTN, HLD, Dementia unclear type with unclear behavioral disturbance history, Diabetes mellitus type II, CKD stage IIIb, Chronic normocytic anemia/Fe deficiency anemia, Hx CVD, recent 05/10/23 discharge following treatment and evaluation of PAF new onset initiated on eliquis regimen at that time transitioned to SNF secondary to inability to safely care for herself at home noted to be chronically wheelchair bound who now re-presents to the [facility] ED on 05/14/23 with history of onset abdominal discomfort with repeat hemoglobin at [place] noted to be low with concern for GI bleed although patient is a poor historian and unsure if her stools have been black or dark red or bright red blood but given concern prompted ED evaluation. Patient endorses lightheadedness, dizziness worse with positional changes and activity. She states in the past she has definitely had altered coloration of her stools but again is not the best historian. Work-up in the ED included T97.1, heart rate 58, BP initially 125/34 however most recent repeat 73/60, respiratory rate 18, 95% on room air--> most recent vital sign assessment heart rate 65, BP 123/76, respiratory rate 14, CBC with WBC 6.4, hemoglobin 7.1, MCV 81.6, platelet 261 without marked shift, BMP with sodium 129, potassium 6.4 not noted to be hemolyzed, BUN/creatinine 80/1.59, glucose 187, lactic acid 0.8. Recent discharge Hgb noted to be 7.1 with baseline during admission 7 range, EKG with rate controlled atrial fibrillation with similar changes to previous. Type and cross initiated per ED physician. In the ED patient ministered dextrose amp, insulin 10 unit IV x1 as well as sodium bicarb amp. [facility] Medical History Atherosclerotic heart disease of [place] coronary artery without angina pectoris CKD (chronic kidney disease), stage III CVA (cerebral vascular accident) Dementia Essential hypertension GERD (gastroesophageal reflux disease) Nonrheumatic aortic (valve) insufficiency Old myocardial infarction PAF (paroxysmal atrial fibrillation) Polyneuropathy Type 2 diabetes mellitus Home Medications atenolol 25 mg tablet 25 mg PO BID 12/01/17 [History Last Taken Unknown] atorvastatin 40 mg tablet 40 mg PO QDAY 12/01/17 [History Last Taken Unknown] donepezil 5 mg tablet 5 mg PO QHS 12/01/17 [History Last Taken Unknown] enalapril maleate 10 mg tablet 10 mg PO .COMPLEX 12/01/17 [History Last Taken Unknown] furosemide 20 mg tablet 20 mg PO QDAY 12/01/17 [History Last Taken Unknown] hydrochlorothiazide 25 mg tablet 25 mg PO QAM 12/01/17 [History Last Taken Unknown] clopidogrel 75 mg tablet 75 mg PO QDAY 01/14/18 [History Last Taken Unknown] nitroglycerin 0.4 mg sublingual tablet 0.4 mg sublingual Q5M PRN chest pain #25 tabs 01/14/18 [Rx Last Taken Unknown] insulin glargine 100 unit/mL (3 mL) subcutaneous pen (Lantus Solostar U-100 Insulin) 18 unit subcut DIRECTED 08/21/20 [History Last Taken Unknown] pioglitazone 30 mg tablet 30 mg PO DAILY 08/21/20 [History Last Taken Unknown] apixaban 5 mg tablet (Eliquis) 2.5 mg (1/2 x 5 mg) PO BID 30 days #30 tabs 05/10/23 [Rx Last Taken Unknown] ferrous sulfate 325 mg (65 mg iron) tablet (FeroSul) 325 mg PO DAILY@1200 30 days #0 tabs 05/10/23 [Rx Last Taken Unknown] insulin lispro 100 unit/mL subcutaneous pen (Humalog KwikPen (U-100) Insulin) See Protocol subcut TIDAC 30 days #0 mL 05/10/23 [Rx Last Taken Unknown] nutrition tx glu intol,lac-free,soy-fiber 0.06 gram-1.2 kcal/mL liquid (Glucerna 1.2 [place]) 120 ml PO TIDCM 30 days #0 mL 05/10/23 [Rx Last Taken Unknown] nystatin 100,000 unit/gram topical powder (Nyamyc) 1 applic topical BID 30 days #0 grams 05/10/23 [Rx Last Taken Unknown] Allergy/AdvReac Type Severity Reaction Status Date / Time No Known Allergies Allergy Verified 05/14/23 20:29 Family History Mother Diabetes Son Heart disease Myocardial infarction Daughter Diabetes Daughter Diabetes Surgical History History of breast biopsy History of cardiac catheterization History of cholecystectomy History of colonoscopy (~2010) History of esophagogastroduodenoscopy (EGD) (~2001) Social History Smoking Status: Never smoker alcohol intake: never substance use type: does not use caffeine: Yes Type: coffee Number of servings: 4 what type of physical activity do you participate in: none seatbelt use: always do you feel safe at home: Yes ROS ROS Narrative Admission Review of Systems: CONSTITUTIONAL: No weight loss, fever, chills, +weakness or fatigue. HEENT: Eyes: No visual loss, blurred vision, double vision or yellow sclerae. Ears, Nose, Throat: No hearing loss, sneezing, congestion, runny nose or sore throat. SKIN: No rash or itching, lesions, wounds. CARDIOVASCULAR: + Edema, LH/Dizziness. No chest pain, chest pressure or chest discomfort, palpitations, orthopnea, syncopal events. RESPIRATORY: + shortness of breath, exertional. No cough or sputum, wheezing, hemoptysis. GASTROINTESTINAL: + Abdominal discomfort, cramping, anorexia, nausea without vomiting, No diarrhea. Cannot endorse history of either melena, BRBPR. GENITOURINARY: No dysuria, frequency, urgency or retention. NEUROLOGICAL: + LH/dizziness, chronic debility with wheelchair bound status. No headache, dizziness, syncope, paralysis, ataxia, numbness or tingling in the extremities, focal weakness, change in bowel or bladder control, seizure. MUSCULOSKELETAL: + muscle, back pain, joint pain or stiffness. HEMATOLOGIC:+ anemia, bleeding or bruising. LYMPHATICS: No enlarged nodes. No history of splenectomy. PSYCHIATRIC: No history of depression or anxiety. ENDOCRINOLOGIC: No reports of sweating, cold or heat intolerance. No polyuria or polydipsia. ALLERGIES: No history of asthma, hives, eczema or rhinitis. Vital Signs Vital Signs Vital Signs: 05/14/23 20:29 05/14/23 20:33 05/14/23 20:35 Temperature 97.1 F L Temperature Source Oral Pulse Rate 58 L Respiratory Rate 18 Respiratory Effort Normal Non-Labored Respiratory Pattern Normal Blood Pressure 125/34 H 73/60 L Blood Pressure Mean 64 64 Pulse Ox 95 Oxygen Delivery Method Room Air 05/14/23 21:50 05/14/23 22:01 Temperature Temperature Source Pulse Rate 51 L 65 Respiratory Rate 30 H 14 Respiratory Effort Respiratory Pattern Blood Pressure 136/58 H 123/46 H Blood Pressure Mean 84 71 Pulse Ox Oxygen Delivery Method Room Air Room Air Weight Weight: 197 lb 8.547 oz Body Mass Index (BMI) 38.5 Physical Exam Narrative Physical Examination: General: Awake, alert, oriented x 3 and cooperative, laying in the ED bed, fatigued, notes abdominal cramping but no acute discomfort at this time, denies lightheadedness or dizziness but currently laying without issue. Skin: Normal color, normal turgor, no icterus, no cyanosis except occasional staged ecchymoses likely with recent lab draws from prior hospitalization. HEENT: AT/NC, EOMI, PERRLA, mildly dry MM, no carotid bruits or JVD noted. Lungs: Diminished, greater bases, appropriate effort, no rales, ronchi or wheezing. Heart: Irregular, rate controlled; no gallop, rub audible. Abdomen: Soft, obese, mild generalized discomfort with palpation but no rebound or guarding, difficult to assess distention as well as HSM given habitus, mildly hyperactive bowel sounds. Extremities: No cyanosis, no clubbing, peripheral edema ankle to mid snyder 1-2+ similar to prior presentation. Neurological: Patient awake, alert, oriented as noted, cognitive function intact; pupils equally reactive to light and accommodation, cranial nerves grossly normal, moving all 4 extremities, no focal deficits, strength moderately to severely globally decreased secondary to acute presentation and underlying comorbidities. Psychiatric: Affect appears fatigued otherwise normal, no acute evidence of depressive or anxiety feelings. Results Lab / Micro Data 05/14/23 20:45 05/14/23 20:45 Labs: Laboratory Results - last 24 hr 05/14/23 20:45: WBC 6.4, RBC 2.99 L, Hgb 7.1 L, Hct 24.4 L, MCV 81.6, MCH 23.7 L, MCHC 29.1 L, RDW Std Deviation 76.4 H, RDW Coeff of Deep 25.6 H, Plt Count 261, MPV 11.0, Immature Gran % (Auto) 0.800, Neut % (Auto) 74.2 H, Lymph % (Auto) 14.2 L, [place] % (Auto) 7.4, Eos % (Auto) 3.1, Baso % (Auto) 0.3, Absolute Neuts (auto) 4.7, Absolute Lymphs (auto) 0.90, Nucleated RBC % 0, Differential Comment SCANNED, Polychromasia RARE, Hypochromasia 1+, Anisocytosis 2+, Microcytosis 1+, Macrocytosis 1+, Ovalocytes RARE, Crenated Cell 1+, Sodium 129 L, Potassium 6.4 H*, Chloride 101, Carbon Dioxide 23.0, Anion Gap 5, BUN 80 H, Creatinine 1.59 H, Estim Creat Clear Calc 21.28, Est GFR (MDRD) Af Amer 40 L, Est GFR (MDRD) Non-Af 33 L, BUN/Creatinine Ratio 50.3 H, Glucose 187 H, Lactic Acid 0.8, Calcium 9.1, Blood Type O POSITIVE, Antibody Screen NEGATIVE Assessment & Plan Assessment/Plan (1) Acute hyperkalemia: (2) Symptomatic anemia: PLAN: Plan The patient is a 77 y/o F w/ PMHx: CKD stage IIIb, PAF, HTN, HLD, Dementia unclear type with unclear behavioral disturbance history, Diabetes mellitus type II, CKD stage IIIb, Chronic normocytic anemia/Fe deficiency anemia, Hx CVD, recent 05/10/23 discharge following treatment and evaluation of PAF new onset initiated on eliquis regimen at that time transitioned to SNF secondary to inability to safely care for herself at home noted to be chronically wheelchair bount who now re-presents to the [facility] ED on 05/14/23 with history of onset abdominal discomfort with repeat hemoglobin at [place] noted to be low with concern for GI bleed although patient is a poor historian and unsure if her stools have been black or dark red or bright red blood but given concern prompted ED evaluation. #1. Concern for Acute GI bleed with resuling Symptomatic Anemia, Chronic normocytic anemia/iron deficiency anemia with associated Hypotension: Admission Hgb 7.1 which is similar to recent discharge but significant hypotension upon initial presentation, will admit to PCU given notable initial hypotension, maintain on IVFs, d/c all antiplt and anticoagulation, will obtain serial H+Hs, continue T+C with PRBC ordered administration initiated per ED with 1 u PRBC, maintain on IV PPI, guiac requested, GI consulted and evaluation pending, clears until midnight then will maintain NPO status, ferritin/Fe panel pending, will continue Fe supplementation, maintain on fall precautions, PT/OT/CM consultation for discharge planning. #2. Hyperkalemia: Admission potassium 6.4, not noted to be hemolyzed, in the ED administered dextrose amp/insulin/bicarb amp, will continue to closely monitor and cycle and readminister albuterol/dextrose/insulin/Kayexalate/calcium as needed, maintain on telemetry. #3. Adult failure to thrive with debility, wheelchair-bound, unable to safely care for self: Complicates presentation, recent SNF transition secondary to inability to safely care for self, PT/OT/case management consultation for discharge planning, maintain on fall precautions. #4. PAF: Onset noted during prior admission, rate controlled, not on rate/rhythm agent, will d/c eliquis as likely associated with her current acute presentation. #5. Chronic Kidney Disease Stage IIIb likely secondary to underlying hypertensive and diabetic disease history: Admission BUN/Cr 80/1.59, baseline renal function more recently 1.3-1.4, had been up to 1.8 during prior presentation but improved, continue to trend. #6. Dementia, unclear type with unclear behavioral disturbance history: We will continue patient home Aricept, complicates presentation, PT/OT/case management consulted for discharge planning, preferentially skilled placement given unsafe for any return to home concept without caregiver. #7. History CVA/CVD: Holding antiplt and anticoagulation given acute presentation, given hypotension also holding HTN regimen, continue home statin regimen. #8. Hypertension: Given hypotensive presentation holding home regimen, add back once appropriate. #9. Hyperlipidemia: We will continue patient home statin therapy. #10. Diabetes mellitus type II: Hold oral home regimen, will continue patient home insulin regimen long-acting however if BS trending low would administer 1/2 dose or hold while NPO, maintain on q 6 hour accu checks w/ ISS. #11. Obesity: Weight loss and lifestyle changes encouraged. #12. Recent presentation w/ Abnormal SINGH: TSH during prior admission elevated; however, just prior to this noted 05/01/2023 TSH 3.48, free T4 obtained 0.99, subclinical, continue to follow outpatient. #13. DVT prophylaxis: SCDs, d/c her anticoagulant given acute presentation as noted. #14. CODE status: Patient does not have HCPOA or LW in place but her son is her caregiver normally; however, he himself was recently hospitalized. Full Code. Charges/Coding Visit Charges Inpatient E&M: 99055 Init Hosp L3
[2023-05-14] MEDS: Insulin Lispro 10 UNIT in Syringe 0 ML 6 UNIT IV (22:45)
[2023-05-14] MEDS: Dextrose 50%-Water 25 GM/50 ML DISP.SYRIN IV (22:45)
[2023-05-14 23:04] VITALS: BP 116/67; PULSE 62; PULSE 88; RESP 20; RESP 28; TEMP 36.6; O2SAT 95
--- NOTE | 2023-05-14 23:08 | ED.RN ---
THIS RN CALLED [facility] AT [phone] TO LET THEM KNOW PT IS TO BE ADMITTED. THIS RN INFORMED KAYLEN BARCLAY.
[2023-05-14 23:37] VITALS: BP 92/81; PULSE 47; RESP 20
[2023-05-15] VITALS (12 sets, daily range): BP systolic 114–154; BP diastolic 49–97; PULSE 40–66; RESP 13–19; TEMP 35.7–36.6; O2SAT 92–100; BMI 37.7
[2023-05-15] MEDS: Sodium Polystyrene Sulfonate 15 GM/60 ML UDC 30 GM PO (01:24)
[2023-05-15 01:47] LABS: Ferritin 113 ng/mL (8-252); Iron 38 ug/dL (50-170); Iron Binding Capacity,Total 391 ug/dL (250-450); PERCENT IRON SATURATION 9.7 % (15.0-55.0)
[2023-05-15 02:00] LABS: Bedside Glucose 115 mg/dL (74-106)
[2023-05-15] MEDS: 0.9% Saline Lock 10 ML Syringe IV ×5 (02:10→20:09)
[2023-05-15] MEDS: 0.9% Normal Saline 1,000 ML 100 ML IV (03:24)
[2023-05-15 05:39] LABS: Absolute Lymphocyte Count 0.87 X10^3/uL (0.83-4.51); Absolute Neutrophil Count 5.3 X10^3/uL (2.0-7.7); Basophil# 0.03 X10^3/uL; Basophil% 0.4 % (0-1); Eosinophils% 2.9 % (0-5); Hematocrit 30.2 % (37-47); Lymphocyte # 0.87 X10^3/ul (0.83-4.51); Lymphocyte % 12.6 % (19-41); Mean Corp Hgb Conc 29.8 g/dL (32-36); Mean Corpuscular Hgb 25.2 pg (27.0-32.0); Mean Corpuscular Volume 84.6 fL (81-99); Monocyte# 0.45 X10^3/uL; Monocyte% 6.5 % (0-10); NRBC Flagged by Analyzer 0 % (0-5); Neutrophil # 5.33 X10^3/uL (2.7-7.7); POSITIVE MORPHOLOGY YES; Platelet Count 244 K/mm3 (150-450); RBC Distribution Width CV 24.4 % (11.6-14.6); RBC Distribution Width SD 75.2 fl (35.1-43.9); Red Blood Count 3.57 M/mm3 (4.2-5.4); White Blood Count 6.9 K/mm3 (4.4-11.0)
[2023-05-15 05:44] LABS: Differential Indicated SCAN CRITERIA MET
[2023-05-15 05:56] LABS: ALB/GLOB Ratio 0.6 RATIO (0.9-2.4); AST(SGOT) 27 U/L (15-37); Alanine Aminotransfer ALT/SGPT 20 U/L (13-56); Albumin, Serum 2.7 g/dL (3.2-5.0); Alkaline Phosphatase 118 U/L (45-117); Anion Gap 8 (5-15); BUN 71 mg/dL (7-18); BUN/Creat Ratio 48.3 RATIO (10-20); Calcium,Total 8.9 mg/dL (8.5-10.1); Chloride 105 mmol/L (98-107); Creatinine, Serum 1.47 mg/dL (0.55-1.02); EST Glomerular Filtration Rate 37 mL/min (>60); Est Glom Filt Rate - Afr Amer 44 mL/min (>60); Estimated Creatinine Clearance 23.02 ml/min; Globulin 4.2 g/dL (2.2-4.2); Glucose 129 mg/dL (74-106); Potassium 5.1 mmol/L (3.5-5.1); Protein, Total 6.9 g/dL (6.4-8.2); Sodium Level 132 mmol/L (136-145)
[2023-05-15 06:36] LABS: Anisocytosis 2+
[2023-05-15 07:10] LABS: Bedside Glucose 132 mg/dL (74-106)
[2023-05-15] MEDS: Nystatin Powder 15gm Bottle 1 APPLIC TOPICAL ×2 (11:15→21:55)
--- NOTE | 2023-05-15 12:11 | PCM.PN.HOSP ---
Reason for Visit Reason for Visit: Diagnoses Anemia, unspecified (05/14/23) Hyperkalemia (05/14/23) Subjective Subjective Follow-up for severe anemia, severe A-fib with bradycardia with pause Objective Data Objective Data Vital Signs: Vital Signs Temp Pulse Resp BP Pulse Ox O2 Del Method 97.8 F 53 L 17 150/58 H 99 Room Air 05/15/23 06:00 05/15/23 06:00 05/15/23 06:00 05/15/23 06:00 05/15/23 09:24 05/15/23 09:24 Oxygen Delivery Method Room Air Weight: 193 lb 1.999 oz Body Mass Index (BMI) 37.7 Intake & Output: Intake and Output for Last 24 Hours 05/13/23 05/14/23 05/15/23 23:59 23:59 23:59 Intake Total 500 / 500 1765.00 / 1765.00 Output Total 600 / 600 Balance 500 / 500 1165.00 / 1165.00 Lab / Micro Data 05/15/23 05:32 05/15/23 05:32 Labs: Laboratory Results - last 24 hr 05/14/23 20:45: WBC 6.4, RBC 2.99 L, Hgb 7.1 L, Hct 24.4 L, MCV 81.6, MCH 23.7 L, MCHC 29.1 L, RDW Std Deviation 76.4 H, RDW Coeff of Deep 25.6 H, Plt Count 261, MPV 11.0, Immature Gran % (Auto) 0.800, Neut % (Auto) 74.2 H, Lymph % (Auto) 14.2 L, [place] % (Auto) 7.4, Eos % (Auto) 3.1, Baso % (Auto) 0.3, Absolute Neuts (auto) 4.7, Absolute Lymphs (auto) 0.90, Nucleated RBC % 0, Differential Comment SCANNED, Polychromasia RARE, Hypochromasia 1+, Anisocytosis 2+, Microcytosis 1+, Macrocytosis 1+, Ovalocytes RARE, Crenated Cell 1+, Sodium 129 L, Potassium 6.4 H*, Chloride 101, Carbon Dioxide 23.0, Anion Gap 5, BUN 80 H, Creatinine 1.59 H, Estim Creat Clear Calc 21.28, Est GFR (MDRD) Af Amer 40 L, Est GFR (MDRD) Non-Af 33 L, BUN/Creatinine Ratio 50.3 H, Glucose 187 H, Lactic Acid 0.8, Calcium 9.1, Iron 38 L, TIBC 391, Iron Saturation 9.7 L, Ferritin 113, Blood Type O POSITIVE, Antibody Screen NEGATIVE, Crossmatch See Detail 05/15/23 00:44: POC Glucose 115 H 05/15/23 05:32: WBC 6.9, RBC 3.57 L, Hgb 9.0 L, Hct 30.2 L, MCV 84.6, MCH 25.2 L, MCHC 29.8 L, RDW Std Deviation 75.2 H, RDW Coeff of Deep 24.4 H, Plt Count 244, MPV 11.0, Immature Gran % (Auto) 0.600, Neut % (Auto) 77.0 H, Lymph % (Auto) 12.6 L, [place] % (Auto) 6.5, Eos % (Auto) 2.9, Baso % (Auto) 0.4, Absolute Neuts (auto) 5.3, Absolute Lymphs (auto) 0.87, Nucleated RBC % 0, Anisocytosis 2+, Sodium 132 L, Potassium 5.1, Chloride 105, Carbon Dioxide 19.0 L, Anion Gap 8, BUN 71 H, Creatinine 1.47 H, Estim Creat Clear Calc 23.02, Est GFR (MDRD) Af Amer 44 L, Est GFR (MDRD) Non-Af 37 L, BUN/Creatinine Ratio 48.3 H, Glucose 129 H, Calcium 8.9, Total Bilirubin 1.70 H, AST 27, ALT 20, Alkaline Phosphatase 118 H, Total Protein 6.9, Albumin 2.7 L, Globulin 4.2, Albumin/Globulin Ratio 0.6 L 05/15/23 05:36: POC Glucose 132 H Assessment & Plan Assessment/Plan (1) Acute hyperkalemia: (2) Symptomatic anemia: PLAN: Plan The patient is a 77 y/o F was admitted for abdominal pain that started the day before admission. Patient denied dark stool and was sent from [facility] for low hemoglobin. Patient was recently discharged on 05/10/2023 following evaluation and treatment of PAF new onset initiated on Eliquis regimen. No obvious external GI bleed, hematemesis, melena or hematochezia . #1. Concern for Acute GI bleed with acute symptomatic Anemia on chronic normocytic anemia/iron deficiency anemia with associated Hypotension: Admission Hgb 7.1 which is similar to recent discharge but significant hypotension upon initial presentation. Patient admitted in PCU. 2 units of PRBC transfusion last hemoglobin 9.0. GI consulted. With multiple comorbidities along with bradycardia and pauses, I think patient will good for only EGD. Serum iron low, TIBC normal, iron saturation 9.7% and ferritin 113. Overall suggestive of mixed, chronic iron deficiency anemia and anemia of chronic disease Patient on pantoprazole 40 mg IV twice daily. #2. Chronic A-fib with severe bradycardia, missed heartbeat and pauses: On raw stock machine loader patient heart rate in the morning was 39/min with sinus pauses about 3 seconds. Slot Technician consulted and discussed with Dr. Chan. Most likely due to atenolol 25 mg twice daily which is on hold since admission. Eliquis on hold because of GI bleed most recent heart rate 45/min. 3. Hyperkalemia: Admission potassium 6.4, not noted to be hemolyzed, in the ED. Patient was given hyperkalemia cocktail and Kayexalate. Repeat potassium 5.1 with slight hemolysis. 4. Adult failure to thrive with debility, wheelchair-bound, unable to safely care for self: Complicates presentation, recent SNF transition secondary to inability to safely care for self, PT/OT/case management consultation for discharge planning, maintain on fall precautions. #5. Chronic Kidney Disease Stage IIIb likely secondary to underlying hypertensive and diabetic disease history: Admission BUN/Cr 80/1.59, baseline renal function more recently 1.3-1.4, had been up to 1.8 during prior presentation but improved, continue to trend. #6. Dementia, unclear type with unclear behavioral disturbance history: We will continue patient home Aricept, complicates presentation, PT/OT/case management consulted for discharge planning, preferentially skilled placement given unsafe for any return to home concept without caregiver. #7. History CVA/CVD: Holding antiplatelet and anticoagulation given acute presentation, given hypotension also holding HTN regimen, continue home statin regimen. #8. Hypertension: Given hypotensive presentation holding home regimen, add back once appropriate. #9. Hyperlipidemia: We will continue patient home statin therapy. #10. Diabetes mellitus type II: Hold oral home regimen, will continue patient home insulin regimen long-acting however if BS trending low would administer 1/2 dose or hold while NPO, maintain on q 6 hour accu checks w/ ISS. #11. Obesity: Weight loss and lifestyle changes encouraged. #12. Recent presentation w/ Abnormal SINGH: TSH was 9.09 during previous hospitalization. Repeat TSH and free T4 tomorrow a.m. not on levothyroxine. #13. DVT prophylaxis: SCDs, d/c her anticoagulant given acute presentation as noted. #14. CODE status: Patient does not have HCPOA or LW in place but her son is her caregiver normally; however, he himself was recently hospitalized. Full Code. Charges/Coding Visit Charges Inpatient E&M: 09352 Subs Hosp L2
[2023-05-15 12:15] LABS: Bedside Glucose 64 mg/dL (74-106)
--- NOTE | 2023-05-15 12:15 | EKG12_ITS ---
Test Reason : KASIE Blood Pressure : / mmHG Vent. Rate : 057 BPM Atrial Rate : 000 BPM P-R Int : 000 ms QRS Dur : 120 ms QT Int : 498 ms P-R-T Axes : 000 -34 -04 degrees QTc Int : 484 ms Atrial fibrillation with slow ventricular response with premature ventricular or aberrantly conducted complexes Left axis deviation Low voltage QRS Right bundle branch block Abnormal ECG When compared with ECG of 14-MAY-2023 22:27, Vent. rate has decreased BY 29 BPM QT has shortened Confirmed by JAZZY ZAMORA, JUDI ([id number]), video editor FREDA STILES ([id number]) on 05/17/2023 1:24:34 PM Referred By: Confirmed By:JUDI PURCELL MD
--- NOTE | 2023-05-15 12:29 | CASEMGMT ---
Social Work SW met w/pt in room, confirmed she would like to return to [facility] at discharge. Pt does not need a list of other custodial facilities at this time. Her son is there also, she states they both plan to go home mid May. As per pt, she was told at [facility] she can return any time. However, pt has [employer] so will need a precert to return. SW sent updates via [email or web address], will follow up Wednesday with [facility]. MERVIN Cline
[2023-05-15] MEDS: Atorvastatin Calcium 40 MG Tablet PO (13:01)
[2023-05-15] MEDS: Ferrous Sulfate 325 MG Tablet PO (13:01)
[2023-05-15 13:24] LABS: Bedside Glucose 89 mg/dL (74-106)
[2023-05-15] MEDS: Acetaminophen 325 MG Tablet 650 MG PO ×2 (15:12→20:17)
[2023-05-15] MEDS: 0.9% Normal Saline 1,000 ML 75 ML IV (16:04)
[2023-05-15 16:34] LABS: Bedside Glucose 66 mg/dL (74-106)
[2023-05-15 17:36] LABS: Bedside Glucose 90 mg/dL (74-106)
[2023-05-15] MEDS: Donepezil HCl 5 MG Tablet PO (20:09)
[2023-05-15] MEDS: MELATONIN 3 MG TABLET PO (20:17)
[2023-05-16 00:08] LABS: Bedside Glucose 112 mg/dL (74-106)
[2023-05-16 02:00] VITALS: BP 121/83; PULSE 43; RESP 16; TEMP 36.2; O2SAT 97
[2023-05-16 03:39] VITALS: BMI 39.2
[2023-05-16 06:42] LABS: Bedside Glucose 74 mg/dL (74-106)
[2023-05-16 07:03] LABS: Absolute Lymphocyte Count 1.01 X10^3/uL (0.83-4.51); Absolute Neutrophil Count 3.2 X10^3/uL (2.0-7.7); Basophil# 0.03 X10^3/uL; Basophil% 0.6 % (0-1); Eosinophil# 0.29 X10^3/uL; Eosinophils% 5.7 % (0-5); Hematocrit 27.5 % (37-47); Hemoglobin 8.3 g/dL (12.0-15.0); Lymphocyte # 1.01 X10^3/ul (0.83-4.51); Lymphocyte % 19.7 % (19-41); Mean Corp Hgb Conc 30.2 g/dL (32-36); Mean Corpuscular Hgb 25.4 pg (27.0-32.0); Mean Corpuscular Volume 84.1 fL (81-99); Mean Platelet Vol. 10.6 fl (6.2-12.0); Monocyte# 0.56 X10^3/uL; Monocyte% 10.9 % (0-10); NRBC Flagged by Analyzer 0 % (0-5); Neutrophil % 62.3 % (47-70); POSITIVE MORPHOLOGY YES; Platelet Count 225 K/mm3 (150-450); RBC Distribution Width CV 25.2 % (11.6-14.6); RBC Distribution Width SD 76.1 fl (35.1-43.9); Red Blood Count 3.27 M/mm3 (4.2-5.4); White Blood Count 5.1 K/mm3 (4.4-11.0)
[2023-05-16 07:04] LABS: Differential Indicated SCAN CRITERIA MET
[2023-05-16 07:32] VITALS: O2SAT 96
[2023-05-16 07:57] LABS: Anion Gap 5 (5-15); BUN 56 mg/dL (7-18); BUN/Creat Ratio 48.7 RATIO (10-20); Calcium,Total 8.5 mg/dL (8.5-10.1); Chloride 107 mmol/L (98-107); Creatinine, Serum 1.15 mg/dL (0.55-1.02); EST Glomerular Filtration Rate 49 mL/min (>60); Est Glom Filt Rate - Afr Amer 59 mL/min (>60); Estimated Creatinine Clearance 29.43 ml/min; Glucose 75 mg/dL (74-106); Potassium 4.1 mmol/L (3.5-5.1); Sodium Level 134 mmol/L (136-145); T4 Free Direct 1.08 ng/dL (0.76-1.46); Thyroid Stim Hormone (TSH) 9.97 uIU/mL (0.358-3.74)
[2023-05-16 08:02] LABS: Acanthocytes 2+; Anisocytosis 2+; Burr Cells 1+; Hypochromasia 1+
--- NOTE | 2023-05-16 08:04 | PN.HOSP_ITS ---
Reason for Visit Reason for Visit: Diagnoses Anemia, unspecified (05/14/23) Hyperkalemia (05/14/23) Subjective Subjective Follow-up for multiple active medical issues including A-fib with bradycardia, bifascicular block, severe anemia, possible GI bleed. Objective Data Objective Data Vital Signs: Vital Signs Temp Pulse Resp BP Pulse Ox O2 Del Method 97.2 F L 43 L 16 121/83 H 96 Room Air 05/16/23 02:00 05/16/23 02:00 05/16/23 02:00 05/16/23 02:00 05/16/23 07:32 05/16/23 07:32 Oxygen Delivery Method Room Air Weight: 200 lb 13.458 oz Body Mass Index (BMI) 39.2 Intake & Output: Intake and Output for Last 24 Hours 05/14/23 05/15/23 05/16/23 23:59 23:59 23:59 Intake Total 500 / 500 3741.67 / 3741.67 1250 / 1250 Output Total 1900 / 2100 600 / 600 Balance 500 / 500 1841.67 / 1641.67 650 / 650 Lab / Micro Data 05/16/23 06:30 05/16/23 06:30 Labs: Laboratory Results - last 24 hr 05/15/23 11:46: POC Glucose 64 L 05/15/23 12:59: POC Glucose 89 05/15/23 16:12: POC Glucose 66 L 05/15/23 17:18: POC Glucose 90 05/15/23 23:48: POC Glucose 112 H 05/16/23 06:12: POC Glucose 74 05/16/23 06:30: WBC 5.1, RBC 3.27 L, Hgb 8.3 L, Hct 27.5 L, MCV 84.1, MCH 25.4 L , MCHC 30.2 L, RDW Std Deviation 76.1 H, RDW Coeff of Deep 25.2 H, Plt Count 225, MPV 10.6, Immature Gran % (Auto) 0.800, Neut % (Auto) 62.3, Lymph % (Auto) 19.7, [place] % (Auto) 10.9 H, Eos % (Auto) 5.7 H, Baso % (Auto) 0.6, Absolute Neuts (auto) 3.2, Absolute Lymphs (auto) 1.01, Nucleated RBC % 0, Hypochromasia 1+, Anisocytosis 2+, [place] Cells 1+, Acanthocytes (Spur) 2+, Sodium 134 L, Potassium 4.1, Chloride 107, Carbon Dioxide 22.0, Anion Gap 5, BUN 56 H, Creatinine 1.15 H , Estim Creat Clear Calc 29.43, Est GFR (MDRD) Af Amer 59 L, Est GFR (MDRD) Non- Af 49 L, BUN/Creatinine Ratio 48.7 H, Glucose 75, Calcium 8.5, TSH 9.97 H, Free T4 1.08 Physical Exam Narrative Seen and examined. She had bradycardia last night and fire management officer with missed heartbeat and pauses about 1 seconds but overall doing better than yesterday. General: Alert, Oriented x3, Cooperative HEENT: Atraumatic, PERRLA, EOMI, Normocephalic Oral: No Gingival or Mucosal Lesions/ Ulcerations Neck: Supple, No JVD, Negative Carotid Bruits Lungs: Air entry diminished in bilateral lung bases. No crepitation/rhonchi Cardiovascular: A-fib, bradycardia heart rate currently in 60s. Missed heartbeat, PVCs last night and fire management officer. Normal S1, Normal S2, systolic murmur LLSB Abdomen: Bowel Sounds Present, Soft, Non Tender, Non-Distended : No renal angle tenderness. No suprapubic tenderness. Extremities: No edema, Capillary Refill Less than 3 Seconds Skin: No rashes, No breakdown Musculoskeletal: Degenerative arthritis of knees, hips and lower spine. Needs walker. Mild chronic muscle atrophy of thigh and calf muscles. No Tenderness to Palpation of Joints or Extremities Neurological: Cranial nerves II-XII grossly intact, DTR 2+/4. No acute focal neurological defic Psych/Mental Status: Normal Affect, Appropriate. Assessment & Plan Assessment/Plan (1) Acute hyperkalemia: (2) Symptomatic anemia: PLAN: Plan The patient is a 77 y/o F was admitted for abdominal pain that started the day before admission. Patient denied dark stool and was sent from [facility] for low hemoglobin. Patient was recently discharged on 05/10/2023 following evaluation and treatment of PAF new onset initiated on Eliquis regimen. No obvious external GI bleed, hematemesis, melena or hematochezia . #1. Concern for Acute GI bleed with acute symptomatic Anemia on chronic normocytic anemia/iron deficiency anemia with associated Hypotension: Admission Hgb 7.1 which is similar to recent discharge but significant hypotension upon initial presentation. Patient admitted in PCU. 2 units of PRBC transfusion last hemoglobin 9.0. GI consulted. With multiple comorbidities along with bra dycardia and pauses, I think patient will good for only EGD. Serum iron low, TIBC normal, iron saturation 9.7% and ferritin 113. Overall suggestive of mixed, chronic iron deficiency anemia and anemia of chronic disease Patient on pantoprazole 40 mg IV twice daily. 05/16: Hemoglobin 8.3. Platelet count 225,000. Seen by apricot packer. Plan for EGD tomorrow AM. Continue Protonix. Possible colonoscopy as an outpatient as it seems patient is high risk for colonoscopy and prolonged ischemia due to severe bradycardia with pauses and bifascicular block. Laboratory Results 05/15/23 12:59: POC Glucose 89 05/15/23 16:12: POC Glucose 66 L 05/15/23 17:18: POC Glucose 90 05/15/23 23:48: POC Glucose 112 H 05/16/23 06:12: POC Glucose 74 05/16/23 06:30: WBC 5.1, RBC 3.27 L, Hgb 8.3 L, Hct 27.5 L, MCV 84.1, MCH 25.4 L , MCHC 30.2 L, RDW Std Deviation 76.1 H, RDW Coeff of Deep 25.2 H, Plt Count 225, MPV 10.6, Immature Gran % (Auto) 0.800, Neut % (Auto) 62.3, Lymph % (Auto) 19.7, [place] % (Auto) 10.9 H, Eos % (Auto) 5.7 H, Baso % (Auto) 0.6, Absolute Neuts (auto) 3.2, Absolute Lymphs (auto) 1.01, Nucleated RBC % 0, Hypochromasia 1+, Anisocytosis 2+, [place] Cells 1+, Acanthocytes (Spur) 2+, Sodium 134 L, Potassium 4.1, Chloride 107, Carbon Dioxide 22.0, Anion Gap 5, BUN 56 H, Creatinine 1.15 H , Estim Creat Clear Calc 29.43, Est GFR (MDRD) Af Amer 59 L, Est GFR (MDRD) Non- Af 49 L, BUN/Creatinine Ratio 48.7 H, Glucose 75, Calcium 8.5, TSH 9.97 H, Free T4 1.08 05/16/23 11:21: POC Glucose 158 H #2. Chronic A-fib with severe bradycardia, missed heartbeat and pauses: On cardiac catheterization technologist patient heart rate in the morning was 39/min with sinus pauses about 3 seconds. Orbitread Operator consulted and discussed with Dr. Chan. Most likely due to atenolol 25 mg twice daily which is on hold since admission. Eliquis on hold because of GI bleed most recent heart rate 45/min. Twelve-lead EKG was reviewed yesterday. Heart rate 37 bpm, LA D low voltage QRS, RBBB, LAFB suggestive of bifascicular block. 05/16:Discussed with the licensed embalmer. Continue to hold beta-mendoza. Patient was on atenolol 25 mg twice daily probably has to decrease to 25 mg daily if heart rate improves further or goes tachycardia 3. Hyperkalemia: Admission potassium 6.4, not noted to be hemolyzed, in the ED. Patient was given hyperkalemia cocktail and Kayexalate. Repeat potassium 5.1 w ith slight hemolysis. 05/16: Repeat potassium is normal at 4.1. 4. Adult failure to thrive with debility, wheelchair-bound, unable to safely care for self: Complicates presentation, recent SNF transition secondary to inability to safely care for self, PT/OT/case management consultation for discharge planning, maintain on fall precautions. #5. Chronic Kidney Disease Stage IIIb likely secondary to underlying hypertensive and diabetic disease history: Admission BUN/Cr 80/1.59, baseline renal function more recently 1.3-1.4, had been up to 1.8 during prior presentation but improved, continue to trend. 05/16: BUNs/creatinine 56/1.15, estimated creatinine clearance about 30 mill per minute. #6. Dementia, unclear type with unclear behavioral disturbance history: We will continue patient home Aricept, complicates presentation, PT/OT/case management consulted for discharge planning, preferentially skilled placement given unsafe for any return to home concept without caregiver. #7. History CVA/CVD: Holding antiplatelet and anticoagulation given acute presentation, given hypotension also holding HTN regimen, continue home statin regimen. #8. Hypertension: Given hypotensive presentation holding home regimen, add back once appropriate. #9. Hyperlipidemia: We will continue patient home statin therapy. #10. Diabetes mellitus type II: Hold oral home regimen, will continue patient h ome insulin regimen long-acting however if BS trending low would administer 1/2 dose or hold while NPO, maintain on q 6 hour accu checks w/ ISS. #11. Obesity: Weight loss and lifestyle changes encouraged. #12. Recent presentation w/ Abnormal SINGH: TSH was 9.09 during previous hospitalization. Repeat TSH and free T4 tomorrow a.m. not on levothyroxine. #13. DVT prophylaxis: SCDs, d/c her anticoagulant given acute presentation as noted. #14. CODE status: Patient does not have HCPOA or LW in place but her son is her caregiver normally; however, he himself was recently hospitalized. Full Code. Charges/Coding Visit Charges Inpatient E&M: 79520 Subs Hosp L2
--- NOTE | 2023-05-16 08:24 | CON.PCM.CA_ITS ---
Assessment & Plan Assessment/Plan (1) Afib: QUALIFIERS: Atrial fibrillation type: unspecified Qualified Code(s): I48.91 - Unspecified atrial fibrillation PLAN: Patient does have a history of atrial fibrillation and also bifascicular block. Her ventricular response rate is controlled. At this time I will recommend that we hold her beta-mendoza and see what happens to her heart rate. We may be able to go back to 25 mg once a day of the atenolol. * I do not think that she is the most appropriate anticoagulation candidate. 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 (2) Essential hypertension: PLAN: Blood pressure appears to be under decent control I would not recommend we make any major changes. Thank you for allowing me to participate in the care of your patient. Please don't hesitate to call if any issues arise. HPI Consult Data Date of Consult: 05/16/23 HPI Narrative HPI Narrative: VANIA ANN, is a 77 F who presents through the emergency room after a recent discharge from the hospital with complaints of inability to take care of herself. She had had a history of paroxysmal atrial fibrillation, hypertension, hyperlipidemia, significant anemia and had been in the [facility]. She said that she had been lightheaded and in the emergency room she had an EKG done which demonstrated atrial fibrillation. She was also noted to be hyponatremic hyperkalemic and anemic with a hemoglobin of 7. EKG did demonstrate some pauses of approximately 3 seconds and cardiology was called for further evaluation and management. Since being in the hospital she has been asymptomatic no significant pauses have been noted her beta-mendoza has been held. [facility] Medical History Atherosclerotic heart disease of [place] coronary artery without angina pectoris CKD (chronic kidney disease), stage III CVA (cerebral vascular accident) Dementia Essential hypertension GERD (gastroesophageal reflux disease) Nonrheumatic aortic (valve) insufficiency Old myocardial infarction PAF (paroxysmal atrial fibrillation) Polyneuropathy Type 2 diabetes mellitus Home Medications atenolol 25 mg tablet 25 mg PO BID 12/01/17 [History Last Taken Unknown] atorvastatin 40 mg tablet 40 mg PO QDAY 12/01/17 [History Last Taken Unknown] donepezil 5 mg tablet 5 mg PO QHS 12/01/17 [History Last Taken Unknown] enalapril maleate 10 mg tablet 10 mg PO .COMPLEX 12/01/17 [History Last Taken Unknown] furosemide 20 mg tablet 20 mg PO QDAY 12/01/17 [History Last Taken Unknown] hydrochlorothiazide 25 mg tablet 25 mg PO QAM 12/01/17 [History Last Taken Unknown] clopidogrel 75 mg tablet 75 mg PO QDAY 01/14/18 [History Last Taken Unknown] nitroglycerin 0.4 mg sublingual tablet 0.4 mg sublingual Q5M PRN chest pain #25 tabs 01/14/18 [Rx Last Taken Unknown] insulin glargine 100 unit/mL (3 mL) subcutaneous pen (Lantus Solostar U-100 Insulin) 18 unit subcut DIRECTED diabetes 08/21/20 [History Last Taken Unknown] pioglitazone 30 mg tablet 30 mg PO DAILY 08/21/20 [History Last Taken Unknown] apixaban 5 mg tablet (Eliquis) 2.5 mg (1/2 x 5 mg) PO BID 30 days #30 tabs 05/10/23 [Rx Last Taken Unknown] ferrous sulfate 325 mg (65 mg iron) tablet (FeroSul) 325 mg PO DAILY@1200 30 days #0 tabs 05/10/23 [Rx Last Taken Unknown] insulin lispro 100 unit/mL subcutaneous pen (Humalog KwikPen (U-100) Insulin) See Protocol subcut TIDAC 30 days #0 mL 05/10/23 [Rx Last Taken Unknown] nutrition tx glu intol,lac-free,soy-fiber 0.06 gram-1.2 kcal/mL liquid (Glucerna 1.2 Davie) 120 ml PO TIDCM 30 days #0 mL 05/10/23 [Rx Last Taken Unknown] nystatin 100,000 unit/gram topical powder (Nyamyc) 1 applic topical BID 30 days #0 grams 05/10/23 [Rx Last Taken Unknown] Allergy/AdvReac Type Severity Reaction Status Date / Time No Known Allergies Allergy Verified 05/14/23 20:29 Family History Mother Diabetes Son Heart disease Myocardial infarction Daughter Diabetes Daughter Diabetes Surgical History History of breast biopsy History of cardiac catheterization History of cholecystectomy History of colonoscopy (~2010) History of esophagogastroduodenoscopy (EGD) (~2001) Social History Smoking Status: Never smoker alcohol intake: never substance use type: does not use caffeine: Yes Type: coffee Number of servings: 4 what type of physical activity do you participate in: none seatbelt use: always do you feel safe at home: Yes ROS Constitutional Constitutional: Denies fever(s) or weight loss Eyes Eyes: Reports systems reviewed and no addt'l complaints, except as documented ENT HEENT: Reports systems reviewed and no addt'l complaints, except as documented Cardiovascular Cardiovascular: Denies chest pain at rest, chest pain with activity, dyspnea at rest, dyspnea on exertion, edema, palpitations or paroxysmal nocturnal dyspnea Respiratory/Chest Respiratory/Chest: Denies dyspnea on exertion, productive cough, shortness of breath at rest or shortness of breath with exertion Gastrointestinal Gastrointestinal: Denies change in bowel habits, nausea, vomiting or weight changes Genitourinary Genitourinary: Denies difficulty urinating Musculoskeletal Musculoskeletal: Denies joint stiffness or muscle weakness Integumentary Integumentary: Denies lesions Neurologic Neurologic: Denies dizziness or syncope Psychiatric Psychiatric: Denies anxiety Endocrine Endocrinology: Denies excessive sweating or fatigue Hematologic/Lymphatic Hematologic/Lymphatic: Denies anemia Allergic/Immunologic Allergic/Immunologic: Denies seasonal rhinorrhea Physical Exam Const alert, oriented x3 and no apparent distress General Appearance: cooperative HEENT hearing grossly normal bilaterally Head and Scalp: atraumatic Eyes EOMs intact bilaterally Neck General: normal visual inspection Chest inspection of chest normal and palpation of chest normal Resp normal respiratory effort Auscultation: clear to auscultation bilaterally Cardio S1 normal heart sound and S2 normal heart sound Jugular Venous Distention: JVD GI normal to inspection, nondistended, normoactive bowel sounds Extremity normal capillary refill and no pedal edema Peripheral Pulses: Yes pulses 2+ throughout and femoral pulses present Skin no rashes or lesions noted Neuro oriented x3 and CN's II-XII intact bilaterally Psych Appearance: grossly normal and appropriate Risk Stratification Risk Stratification Applicable: No Objective Data Vital Signs: Vital Signs Temp Pulse Resp BP Pulse Ox O2 Del Method 97.2 F L 43 L 16 121/83 H 96 Room Air 05/16/23 02:00 05/16/23 02:00 05/16/23 02:00 05/16/23 02:00 05/16/23 07:32 05/16/23 07:40 Oxygen Delivery Method Room Air Weight: 200 lb 13.458 oz Body Mass Index (BMI) 39.2 Intake & Output: Intake and Output for Last 24 Hours 05/14/23 05/15/23 05/16/23 23:59 23:59 23:59 Intake Total 500 / 500 3741.67 / 3741.67 1250 / 1250 Output Total 1900 / 2100 600 / 600 Balance 500 / 500 1841.67 / 1641.67 650 / 650 Lab / Micro Data 05/16/23 06:30 05/16/23 06:30 Labs: Laboratory Results - last 24 hr 05/15/23 11:46: POC Glucose 64 L 05/15/23 12:59: POC Glucose 89 05/15/23 16:12: POC Glucose 66 L 05/15/23 17:18: POC Glucose 90 05/15/23 23:48: POC Glucose 112 H 05/16/23 06:12: POC Glucose 74 05/16/23 06:30: WBC 5.1, RBC 3.27 L, Hgb 8.3 L, Hct 27.5 L, MCV 84.1, MCH 25.4 L , MCHC 30.2 L, RDW Std Deviation 76.1 H, RDW Coeff of Deep 25.2 H, Plt Count 225, MPV 10.6, Immature Gran % (Auto) 0.800, Neut % (Auto) 62.3, Lymph % (Auto) 19.7, Marshall % (Auto) 10.9 H, Eos % (Auto) 5.7 H, Baso % (Auto) 0.6, Absolute Neuts (auto) 3.2, Absolute Lymphs (auto) 1.01, Nucleated RBC % 0, Hypochromasia 1+, Anisocytosis 2+, Janeen Cells 1+, Acanthocytes (Spur) 2+, Sodium 134 L, Potassium 4.1, Chloride 107, Carbon Dioxide 22.0, Anion Gap 5, BUN 56 H, Creatinine 1.15 H , Estim Creat Clear Calc 29.43, Est GFR (MDRD) Af Amer 59 L, Est GFR (MDRD) Non- Af 49 L, BUN/Creatinine Ratio 48.7 H, Glucose 75, Calcium 8.5, TSH 9.97 H, Free T4 1.08 Cardiology Labs/Tests 05/16/23 06:30: WBC 5.1, RBC 3.27 L, Hgb 8.3 L, Hct 27.5 L, MCV 84.1, MCH 25.4 L , MCHC 30.2 L, Plt Count 225, MPV 10.6, Immature Gran % (Auto) 0.800, Neut % (Auto) 62.3, Lymph % (Auto) 19.7, Marshall % (Auto) 10.9 H, Eos % (Auto) 5.7 H, Baso % (Auto) 0.6, Absolute Neuts (auto) 3.2, Nucleated RBC % 0, Sodium 134 L, Potassium 4.1, Chloride 107, Carbon Dioxide 22.0, Anion Gap 5, BUN 56 H, Creatinine 1.15 H, Est GFR (MDRD) Af Amer 59 L, Est GFR (MDRD) Non-Af 49 L, BUN/Creatinine Ratio 48.7 H, Glucose 75, Calcium 8.5 Rhythm: EKG: ECHO: Stress Test: Cardiac Cath: PCI: CT Surgery: Holter monitor: EPS: PPM: CXR: Chest CT Scan:
[2023-05-16 09:24] VITALS: BP 113/74; PULSE 45; RESP 18; TEMP 36.7; O2SAT 95
[2023-05-16] MEDS: Ferrous Sulfate 325 MG Tablet PO (09:27)
[2023-05-16] MEDS: Nystatin Powder 15gm Bottle 1 APPLIC TOPICAL ×2 (09:27→21:09)
[2023-05-16] MEDS: Atorvastatin Calcium 40 MG Tablet PO (09:27)
[2023-05-16] MEDS: 0.9% Saline Lock 10 ML Syringe IV ×2 (09:28→21:12)
--- NOTE | 2023-05-16 10:50 | CON.PCM.GI_ITS ---
HPI Consult Data Date of Consult: 05/16/23 HPI Narrative Reason for Consultation: Anemia HPI Narrative: VANIA ANN, is a 77 F who presents with abdominal discomfort. She says she struggles with chronic constipation. She says that she has had a colonoscopy in the past but cannot remember when she had a colonoscopy. She says she has to manually disimpact herself. She says that she has never seen blood per rectum. She has a past medical history of CKD stage IIIb, PAF, HTN, HLD, Dementia , Diabetes mellitus type II, CKD stage IIIb, Chronic normocytic anemia/Fe deficiency anemia, Hx CVD, recent 05/10/23 discharge following treatment and evaluation of PAF new onset initiated on eliquis regimen at that time transitioned to SNF secondary to inability to safely care for herself at home. She has a very poor historian. Work-up in the ED included T97.1, heart rate 58, BP initially 125/34 however most recent repeat 73/60, respiratory rate 18, 95% on room air--> most recent vital sign assessment heart rate 65, BP 123/76, respiratory rate 14, CBC with WBC 6.4, hemoglobin 7.1, MCV 81.6, platelet 261 without marked shift, BMP with sodium 129, potassium 6.4 not noted to be hemolyzed, BUN/creatinine 80/1.59, glucose 187, lactic acid 0.8. Recent discharge Hgb noted to be 7.1 with baseline during admission 7 range, EKG with rate controlled atrial fibrillation with similar changes to previous. Type and cross initiated per ED physician. [facility] Medical History Atherosclerotic heart disease of [place] coronary artery without angina pectoris CKD (chronic kidney disease), stage III CVA (cerebral vascular accident) Dementia Essential hypertension GERD (gastroesophageal reflux disease) Nonrheumatic aortic (valve) insufficiency Old myocardial infarction PAF (paroxysmal atrial fibrillation) Polyneuropathy Type 2 diabetes mellitus Home Medications atenolol 25 mg tablet 25 mg PO BID 12/01/17 [History Last Taken Unknown] atorvastatin 40 mg tablet 40 mg PO QDAY 12/01/17 [History Last Taken Unknown] donepezil 5 mg tablet 5 mg PO QHS 12/01/17 [History Last Taken Unknown] enalapril maleate 10 mg tablet 10 mg PO .COMPLEX 12/01/17 [History Last Taken Unknown] furosemide 20 mg tablet 20 mg PO QDAY 12/01/17 [History Last Taken Unknown] hydrochlorothiazide 25 mg tablet 25 mg PO QAM 12/01/17 [History Last Taken Unknown] clopidogrel 75 mg tablet 75 mg PO QDAY 01/14/18 [History Last Taken Unknown] nitroglycerin 0.4 mg sublingual tablet 0.4 mg sublingual Q5M PRN chest pain #25 tabs 01/14/18 [Rx Last Taken Unknown] insulin glargine 100 unit/mL (3 mL) subcutaneous pen (Lantus Solostar U-100 Insulin) 18 unit subcut DIRECTED diabetes 08/21/20 [History Last Taken Unknown] pioglitazone 30 mg tablet 30 mg PO DAILY 08/21/20 [History Last Taken Unknown] apixaban 5 mg tablet (Eliquis) 2.5 mg (1/2 x 5 mg) PO BID 30 days #30 tabs 05/10/23 [Rx Last Taken Unknown] ferrous sulfate 325 mg (65 mg iron) tablet (FeroSul) 325 mg PO DAILY@1200 30 days #0 tabs 05/10/23 [Rx Last Taken Unknown] insulin lispro 100 unit/mL subcutaneous pen (Humalog KwikPen (U-100) Insulin) See Protocol subcut TIDAC 30 days #0 mL 05/10/23 [Rx Last Taken Unknown] nutrition tx glu intol,lac-free,soy-fiber 0.06 gram-1.2 kcal/mL liquid (Glucerna 1.2 Davie) 120 ml PO TIDCM 30 days #0 mL 05/10/23 [Rx Last Taken Unknown] nystatin 100,000 unit/gram topical powder (Nyamyc) 1 applic topical BID 30 days #0 grams 05/10/23 [Rx Last Taken Unknown] Allergy/AdvReac Type Severity Reaction Status Date / Time No Known Allergies Allergy Verified 05/14/23 20:29 Family History Mother Diabetes Son Heart disease Myocardial infarction Daughter Diabetes Daughter Diabetes Surgical History History of breast biopsy History of cardiac catheterization History of cholecystectomy History of colonoscopy (~2010) History of esophagogastroduodenoscopy (EGD) (~2001) Social History Smoking Status: Never smoker alcohol intake: never substance use type: does not use caffeine: Yes Type: coffee Number of servings: 4 what type of physical activity do you participate in: none seatbelt use: always do you feel safe at home: Yes ROS Constitutional Constitutional: Denies fever(s) or weight loss Eyes Eyes: Reports systems reviewed and no addt'l complaints, except as documented ENT HEENT: Reports systems reviewed and no addt'l complaints, except as documented Cardiovascular Cardiovascular: Denies chest pain at rest, chest pain with activity, dyspnea at rest, dyspnea on exertion, edema, palpitations or paroxysmal nocturnal dyspnea Respiratory/Chest Respiratory/Chest: Denies dyspnea on exertion, productive cough, shortness of breath at rest or shortness of breath with exertion Gastrointestinal Gastrointestinal: Denies change in bowel habits, nausea, vomiting or weight changes Genitourinary Genitourinary: Denies difficulty urinating Musculoskeletal Musculoskeletal: Denies joint stiffness or muscle weakness Integumentary Integumentary: Denies lesions Neurologic Neurologic: Denies dizziness or syncope Psychiatric Psychiatric: Denies anxiety Endocrine Endocrinology: Denies excessive sweating or fatigue Hematologic/Lymphatic Hematologic/Lymphatic: Denies anemia Allergic/Immunologic Allergic/Immunologic: Denies seasonal rhinorrhea Physical Exam Const alert, oriented x3 and no apparent distress General Appearance: cooperative HEENT hearing grossly normal bilaterally Head and Scalp: atraumatic Eyes EOMs intact bilaterally Neck General: normal visual inspection Chest inspection of chest normal and palpation of chest normal Resp normal respiratory effort Auscultation: clear to auscultation bilaterally Cardio S1 normal heart sound and S2 normal heart sound Jugular Venous Distention: JVD GI normal to inspection, nondistended, normoactive bowel sounds Extremity normal capillary refill and no pedal edema Peripheral Pulses: Yes pulses 2+ throughout and femoral pulses present Skin no rashes or lesions noted Neuro oriented x3 and CN's II-XII intact bilaterally Psych Appearance: grossly normal and appropriate Lab / Micro Data 05/16/23 06:30 05/16/23 06:30 Labs: Laboratory Results - last 24 hr 05/15/23 11:46: POC Glucose 64 L 05/15/23 12:59: POC Glucose 89 05/15/23 16:12: POC Glucose 66 L 05/15/23 17:18: POC Glucose 90 05/15/23 23:48: POC Glucose 112 H 05/16/23 06:12: POC Glucose 74 05/16/23 06:30: WBC 5.1, RBC 3.27 L, Hgb 8.3 L, Hct 27.5 L, MCV 84.1, MCH 25.4 L , MCHC 30.2 L, RDW Std Deviation 76.1 H, RDW Coeff of Deep 25.2 H, Plt Count 225, MPV 10.6, Immature Gran % (Auto) 0.800, Neut % (Auto) 62.3, Lymph % (Auto) 19.7, [place] % (Auto) 10.9 H, Eos % (Auto) 5.7 H, Baso % (Auto) 0.6, Absolute Neuts (auto) 3.2, Absolute Lymphs (auto) 1.01, Nucleated RBC % 0, Hypochromasia 1+, Anisocytosis 2+, [place] Cells 1+, Acanthocytes (Spur) 2+, Sodium 134 L, Potassium 4.1, Chloride 107, Carbon Dioxide 22.0, Anion Gap 5, BUN 56 H, Creatinine 1.15 H , Estim Creat Clear Calc 29.43, Est GFR (MDRD) Af Amer 59 L, Est GFR (MDRD) Non- Af 49 L, BUN/Creatinine Ratio 48.7 H, Glucose 75, Calcium 8.5, TSH 9.97 H, Free T4 1.08 Assessment & Plan Assessment/Plan (1) Acute hyperkalemia: (2) Symptomatic anemia: PLAN: Plan The patient is a 77-year-old female with CKD stage IIIb, PAF, HTN, HLD, Dementia, Diabetes , CKD stage IIIb, Chronic normocytic anemia/Fe deficiency anemia Acute GI bleed with resuling Symptomatic Anemia, Chronic normocytic anemia/iron deficiency anemia with associated Hypotension: With her knee anticoag should she undergo upper and. She has multiple reasons for GI bleed and iron deficiency anemia including obesity causing Ramirez, GI blood loss secondary to antiplatelet, GI blood loss secondary to coag, increased risk of malignancy. At this time she does not want to undergo colonoscopy so she should have an upper endoscopy and possibly colonoscopy as an outpatient. She was explained alternatives, risk, benefits including outstanding bleeding, infection, sepsis, perforation, need for more discharge and . She will have an ASA of 3. Charges/Coding Visit Charges Inpatient E&M: 21240 Init Hosp L3
[2023-05-16 11:44] LABS: Bedside Glucose 158 mg/dL (74-106)
[2023-05-16 15:25] VITALS: BP 142/48; PULSE 46; RESP 18; TEMP 36.6; O2SAT 99
[2023-05-16 16:58] LABS: Bedside Glucose 123 mg/dL (74-106)
[2023-05-16 21:06] VITALS: BP 139/62; PULSE 69; RESP 18; TEMP 36.8; O2SAT 100
[2023-05-16] MEDS: Donepezil HCl 5 MG Tablet PO (21:08)
[2023-05-16] MEDS: MELATONIN 3 MG TABLET PO (21:08)
[2023-05-17] VITALS (10 sets, daily range): BP systolic 109–149; BP diastolic 45–84; PULSE 56–68; RESP 16–20; TEMP 36.1–37; O2SAT 94–100; BMI 39.7; BMI 39.9
[2023-05-17 00:26] LABS: Bedside Glucose 139 mg/dL (74-106)
[2023-05-17 04:41] LABS: Absolute Lymphocyte Count 0.96 X10^3/uL (0.83-4.51); Absolute Neutrophil Count 3.7 X10^3/uL (2.0-7.7); Basophil# 0.03 X10^3/uL; Basophil% 0.5 % (0-1); Eosinophil# 0.21 X10^3/uL; Eosinophils% 3.8 % (0-5); Hematocrit 24.3 % (37-47); Hemoglobin 7.3 g/dL (12.0-15.0); Lymphocyte # 0.96 X10^3/ul (0.83-4.51); Lymphocyte % 17.4 % (19-41); Mean Corpuscular Hgb 25.1 pg (27.0-32.0); Mean Corpuscular Volume 83.5 fL (81-99); Mean Platelet Vol. 10.7 fl (6.2-12.0); Monocyte# 0.55 X10^3/uL; NRBC Flagged by Analyzer 0 % (0-5); Neutrophil # 3.73 X10^3/uL (2.7-7.7); Neutrophil % 67.8 % (47-70); POSITIVE MORPHOLOGY YES; Platelet Count 216 K/mm3 (150-450); RBC Distribution Width CV 25.9 % (11.6-14.6); RBC Distribution Width SD 78.7 fl (35.1-43.9); Red Blood Count 2.91 M/mm3 (4.2-5.4); White Blood Count 5.5 K/mm3 (4.4-11.0)
[2023-05-17 04:58] LABS: International Normalized Ratio 1.4; Partial Thromboplast Time 45.1 Seconds (24.1-36.2); Prothrombin Time (Protime)PT. 17.6 SECONDS (11.7-14.9)
[2023-05-17 05:14] LABS: Anion Gap 4 (5-15); BUN 47 mg/dL (7-18); Calcium,Total 8.5 mg/dL (8.5-10.1); Chloride 107 mmol/L (98-107); Creatinine, Serum 1.12 mg/dL (0.55-1.02); Differential Indicated SCAN CRITERIA MET; EST Glomerular Filtration Rate 50 mL/min (>60); Est Glom Filt Rate - Afr Amer 61 mL/min (>60); Estimated Creatinine Clearance 30.21 ml/min; Glucose 110 mg/dL (74-106); Potassium 4.7 mmol/L (3.5-5.1); Sodium Level 134 mmol/L (136-145)
[2023-05-17 05:16] LABS: Anisocytosis 2+
[2023-05-17 06:23] LABS: Bedside Glucose 109 mg/dL (74-106)
[2023-05-17 07:39] LABS: Hemoglobin A1c 5.8 % (3.8-5.6)
--- NOTE | 2023-05-17 09:15 | PN.HOSP_ITS ---
Reason for Visit Reason for Visit: Diagnoses Anemia, unspecified (05/14/23) Hyperkalemia (05/14/23) Essential (primary) hypertension (05/14/23) Unspecified atrial fibrillation (05/14/23) Subjective Subjective Feels well. Objective Data Objective Data Vital Signs: Vital Signs Temp Pulse Resp BP Pulse Ox O2 Del Method 36.1 C L 60 18 149/53 H 94 Room Air 05/17/23 06:00 05/17/23 06:00 05/17/23 06:00 05/17/23 06:00 05/17/23 07:00 05/17/23 07:00 Oxygen Delivery Method Room Air Weight: 92.4 kg Body Mass Index (BMI) 39.9 Intake & Output: Intake and Output for Last 24 Hours 05/15/23 05/16/23 05/17/23 23:59 23:59 23:59 Intake Total 3741.67 / 3741.67 3220 / 3220 36.25 / 36.25 Output Total 1900 / 2100 1100 / 1100 0 / 0 Balance 1841.67 / 1641.67 2120 / 2120 36.25 / 36.25 Lab / Micro Data 05/17/23 04:00 05/17/23 04:00 Labs: Laboratory Results - last 24 hr 05/16/23 11:21: POC Glucose 158 H 05/16/23 16:26: POC Glucose 123 H 05/17/23 00:07: POC Glucose 139 H 05/17/23 04:00: WBC 5.5, RBC 2.91 L, Hgb 7.3 L, Hct 24.3 L, MCV 83.5, MCH 25.1 L , MCHC 30.0 L, RDW Std Deviation 78.7 H, RDW Coeff of Deep 25.9 H, Plt Count 216, MPV 10.7, Immature Gran % (Auto) 0.500, Neut % (Auto) 67.8, Lymph % (Auto) 17.4 L, [place] % (Auto) 10.0, Eos % (Auto) 3.8, Baso % (Auto) 0.5, Absolute Neuts (auto) 3.7, Absolute Lymphs (auto) 0.96, Nucleated RBC % 0, Anisocytosis 2+, PT 17.6 H, INR 1.4, APTT 45.1 H, Sodium 134 L, Potassium 4.7, Chloride 107, Carbon Dioxide 23.0, Anion Gap 4 L, BUN 47 H, Creatinine 1.12 H, Estim Creat Clear Calc 30.21, Est GFR (MDRD) Af Amer 61, Est GFR (MDRD) Non-Af 50 L, BUN/Creatinine Ratio 42.0 H, Glucose 110 H, Hemoglobin A1c 5.8 H, Calcium 8.5 05/17/23 06:01: POC Glucose 109 H Physical Exam Const alert and no apparent distress Resp normal respiratory effort, no retractions, no use of accessory muscles and clear to auscultation bilaterally Cardio regular rate, regular rhythm, S1 normal heart sound and S2 normal heart sound GI normal to inspection, nondistended, normoactive bowel sounds, soft to palpation, non-tender and non-distended Extremity normal to inspection Assessment & Plan Assessment/Plan (1) Acute hyperkalemia: PLAN: Admission potassium 6.4, not noted to be hemolyzed, in the ED. Patient was given hyperkalemia cocktail and Kayexalate. Repeat potassium 5.1 with slight hemolysis. 05/16: Repeat potassium is normal at 4.1. (2) Symptomatic anemia: PLAN: Concern for Acute GI bleed with acute symptomatic Anemia on chronic normocytic anemia/iron deficiency anemia with associated Hypotension: Admission Hgb 7.1 which is similar to recent discharge but significant hypotension upon initial presentation. Patient admitted in PCU. 2 units of PRBC transfusion last hemoglobin 9.0. GI consulted. Serum iron low, TIBC normal, iron saturation 9.7% and ferritin 113. Overall suggestive of mixed, chronic iron deficiency anemia and anemia of chronic disease Patient on pantoprazole 40 mg IV twice daily. 05/16: Hemoglobin 8.3. Platelet count 225,000. Seen by hardwood floor layer. Plan for EGD tomorrow AM. Continue Protonix. Possible colonoscopy as an outpatient as it seems patient is high risk for colonoscopy and prolonged ischemia due to severe bradycardia with pauses and bifascicular block. (3) Duodenal ulcer: PLAN: PPI PLAN: Plan Chronic conditions: * Chronic A-fib with severe bradycardia, missed heartbeat and pauses: On cardiac cath technician patient heart rate in the morning was 39/min with sinus pauses about 3 seconds. Audio Visual Project Manager consulted and discussed with Dr. Chan. Most likely due to atenolol 25 mg twice daily which is on hold since admission. Eliquis on hold because of GI bleed most recent heart rate 45/min. Twelve-lead EKG was reviewed yesterday. Heart rate 37 bpm, LA D low voltage QRS, RBBB, LAFB suggestive of bifascicular block. 05/16:Discussed with the men's custom hair piece consultant. Continue to hold beta-mendoza. 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 * Chronic Kidney Disease Stage IIIb likely secondary to underlying hypertensive and diabetic disease history: Admission BUN/Cr 80/1.59, baseline renal function more recently 1.3-1.4, had been up to 1.8 during prior presentation but improved, continue to trend. 05/16: BUNs/creatinine 56/1.15, estimated creatinine clearance about 30 mill per minute. * Dementia, unclear type with unclear behavioral disturbance history: We will continue patient home Aricept, complicates presentation, PT/OT/case management consulted for discharge planning, preferentially skilled placement given unsafe for any return to home concept without caregiver. * History CVA/CVD: Holding antiplatelet and anticoagulation given acute presentation, given hypotension also holding HTN regimen, continue home statin regimen. * Hypertension: Given hypotensive presentation holding home regimen, add back once appropriate. * Hyperlipidemia: We will continue patient home statin therapy. * Diabetes mellitus type II: Hold oral home regimen, will continue patient home insulin regimen long-acting however if BS trending low would administer 1/2 dose or hold while NPO, maintain on q 6 hour accu checks w/ ISS. * Obesity: Weight loss and lifestyle changes encouraged. * Abnormal TSH: TSH was 9.09 during previous hospitalization. FT4 1.08 DVT prophylaxis: SCDs, d/c her anticoagulant given acute presentation as noted. CODE status: Patient does not have HCPOA or LW in place but her son is her caregiver normally; however, he himself was recently hospitalized. Full Code. Disposition: back to [place] when stable. Expressed concern about pt going back home with her son, Julio, with her other son. Julio unable to adequately care for them both. Charges/Coding Visit Charges Inpatient E&M: 07500 Subs Hosp L2
--- NOTE | 2023-05-17 09:18 | CASEMGMT ---
SOFIE sent updates to [facility] via [employer]. Plan: d/c back to [place] pending pre-cert and patient being medically ready Monalisa PICKENS
[2023-05-17] MEDS: Lactated Ringers 1,000 ML 15 ML IV (11:30)
--- NOTE | 2023-05-17 11:45 | IMM_PTH ---
PATIENT: VANIA ANN LOC: [facility] U#:[id number] AGE/SX: 77/F ROOM: [facility] RE05/14/[address]: Dr. Milad Silva DO : 1945 BED: 1 DIS: 05/21/2023 SPEC #: [id number] RECD: 05/18/23 08:59 STATUS: BLAIR REQ #: [id number] BERNARD: 05/17/23 11:[address]: Chato Dewitt DEPT: IMMUNOHISTOCHEMISTRY RECD BY: Lala Guidry ENTERED: 05/18/23 08:59 SP TYPE: IMMUNO OTHR DR: MD Dr. Boaz Fernandez MD Dr. Eric Jopperi, DO Dr. Liza D Talampas, MD Dr. Prakash Chand, MD Tissues: B - Stomach, NOS C - Esophageal mucous membrane Procedures: H Pylori (initial) P53 (initial) KI-67 (add) MOC-31 (add) PHYSICIAN & [address] [address] SPECIMEN INFORMATION: Tissue Source: B - Gastric antrum, C - Distal esophagus Clinical Info: Acute hypokalemia, symptomatic anemia Specimen Number: [id number] B & C CPT code: 41670 x2, 53459 x2 METHODOLOGY: Deparaffinized sections of prefer/formalin-fixed tissue or PAP/DQ stained slides are incubated with monoclonal/polyclonal antibodies/oligonucleotide probes. Localization is made via biotin free immunoperoxidase method. Appropriate controls are performed and reacted as expected. Results on target cell population are indicated in the following table: RESULTS: ANTIBODY / CLONE RESULT Block B H Pylori (polyclonal) negative Block C P53 (DO-7) negative, wild type Ki-67 (30-9) positive, low MOC-31 (4561) positive These tests were developed and their performance characteristics determined by [facility]. They may not have been cleared or approved by the U.S. Food and Drug Administration. The FDA has determined that such clearance or approval is not necessary. The above immunohistochemical/dualISH markers are ordered and reviewed by the Pathologist. INTERPRETATION: B. Gastric antrum, biopsy: Negative for Helicobacter pylori organisms. C. Distal esophagus, biopsy: No evidence of dysplasia. Case has been reviewed in consultation with Dr. Recinos who concurs with the above diagnosis. IDC:JANY AM:milvia 05/20/2023
--- NOTE | 2023-05-17 11:45 | EGD_PTH ---
PATIENT: VANIA ANN LOC: [facility] U#:[id number] AGE/SX: 77/F ROOM: [facility] RE05/14/[address]: Dr. Milad Silva DO : 1945 BED: 1 DIS: 05/21/2023 SPEC #: [id number] RECD: 05/17/23 15:59 STATUS: BLAIR REYari #: [id number] BERNARD: 05/17/23 11:[address]: Chato Dewitt DEPT: SURGICAL PATHOLOGY RECD BY: Tammie Whiting ENTERED: 05/18/23 09:51 SP TYPE: EGD BIOPSY OTHR DR: MD Dr. Boaz Fernandez MD Dr. Eric Jopperi, DO Dr. Liza D Talampas, MD Dr. Prakash Chand, MD Tissues: A - Duodenum, NOS B - Gastric mucous membrane C - Esophagus, NOS Procedures: Surgery Specimen Level IV Comments: @ Ordering doctor for SUIV edited from to @ by KRYSTAL at 05/18/23 1438 @ Submitting doctor edited from to @ by RGOOD at 05/18/23 1438 HEADER OPERATION: EGD PRE-OP DIAGNOSIS: Acute hyperkalemia, symptomatic anemia TISSUE SUBMITTED: A - Duodenum biopsy, B - Gastric antrum for H. pylori and path, C - Distal esophagus biopsy MICROSCOPIC DIAGNOSIS A. Duodenum, biopsy: Focal gastric metaplasia. B. Gastric antrum, biopsy: Chronic gastritis. See comment. C. Distal esophagus, biopsy: Gastroesophageal junctional mucosa with mild chronic inflammation. 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 No evidence of dysplasia. See comment. AM:milvia 05/19/2023 COMMENT B. The results of immunohistochemistry for Helicobacter pylori will be reported separately ([id number]). C. Immunohistochemistry ([id number]) for P53 and Ki-67 will be performed and results will be reported separately. Alcian blue/PAS stain with matched control supports the above diagnosis. Case has been reviewed in consultation with Dr. Recinos who concurs with the above diagnosis. IDC:SJ MICROSCOPIC DESCRIPTION Slides are reviewed. GROSS DESCRIPTION A - Received in fixative is one container labeled with the patient's name and designated duodenum biopsy. The specimen consists of two irregular fragments of light plaza soft tissue that in aggregate measure 0.6 x 0.3 x 0.1 cm. The specimen is totally submitted in one cassette. B - Received in fixative is one container labeled with the patient's name and designated gastric antrum. The specimen consists of multiple irregular fragments of light plaza soft tissue that in aggregate measure 0.8 x 0.4 x 0.1 cm. The specimen is totally submitted in one cassette. C - Received in fixative is one container labeled with the patient's name and designated distal esophagus. The specimen consists of multiple irregular fragments of light plaza soft tissue that in aggregate measure 1.0 x 0.3 x 0.1 cm. The specimen is totally submitted in one cassette. / SJ:rg 05/18/2023 TC:3 CPT: 60146 x3, 44438
--- NOTE | 2023-05-17 11:52 | OP.EGD_ITS ---
Patient Name: Loni Galdamez Procedure Date: 05/17/2023 11:01 AM Date of : 1945 Age: 77 Procedure: Upper GI endoscopy Indications: Iron deficiency anemia, Melena Providers: Chato Dewitt DO Medicines: Monitored Anesthesia Care Patient Profile: This is a 77 year old female. Refer to note in patient chart for documentation of history and physical. Patient has symptoms of chronic right upper quadrant abdominal pain. Complications: No immediate complications. Procedure: Pre-Anesthesia Assessment: - Prior to the procedure, a History and Physical was performed, and patient medications and allergies were reviewed. The risks and benefits of the procedure and the sedation options and risks were discussed with the patient. All questions were answered and informed consent was obtained. Patient identification and proposed procedure were verified by the physician in the pre-procedure area. Mental Status Examination: alert and oriented. Airway Examination: normal oropharyngeal airway and neck mobility. Respiratory Examination: clear to auscultation. CV Examination: normal. Prophylactic Antibiotics: The patient does not require prophylactic antibiotics. Prior Anticoagulants: The patient has taken no previous anticoagulant or antiplatelet agents. ASA Grade Assessment: II - A patient with mild systemic disease. After reviewing the risks and benefits, the patient was deemed in satisfactory condition to undergo the procedure. The anesthesia plan was to use monitored anesthesia care (MAC). Immediately prior to administration of medications, the patient was re-assessed for adequacy to receive sedatives. The heart rate, respiratory rate, oxygen saturations, blood pressure, adequacy of pulmonary ventilation, and response to care were monitored throughout the procedure. The physical status of the patient was re-assessed after the procedure. After obtaining informed consent, the endoscope was passed under direct vision. Throughout the procedure, the patient's blood pressure, pulse, and oxygen saturations were monitored continuously. The gastroscope was introduced through the mouth, and advanced to the second part of duodenum. The upper GI endoscopy was accomplished without difficulty. The patient tolerated the procedure well. Scope In: 11:37:32 AM Scope Out: 11:43:25 AM Total Procedure Duration Time 0 hours 5 minutes 53 seconds Findings: The esophagus and gastroesophageal junction were examined with white light and narrow band imaging (NBI) from a forward view and retroflexed position. 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 These changes involved the mucosa at the upper extent of the gastric folds (34 cm from the incisors) extending to the Z-line (40 cm from the incisors). Arkoma-colored mucosa was present. The maximum longitudinal extent of these esophageal mucosal changes was 6 cm in length. Mucosa was biopsied with a cold forceps for histology in a targeted manner at intervals of 1 cm in the lower third of the esophagus. One specimen bottle was sent to pathology. Verification of patient identification for the specimen was done. Estimated blood loss was minimal. A small hiatal hernia was present. Patchy mild inflammation characterized by congestion (edema) and erythema was found in the gastric body and in the gastric antrum. Biopsies were taken with a cold forceps for histology. Verification of patient identification for the specimen was done. Estimated blood loss was minimal. Two oozing cratered duodenal ulcers with pigmented material were found in the duodenal bulb. The largest lesion was 4 mm in largest dimension. Coagulation for hemostasis using monopolar probe was successful. Estimated blood loss was minimal. Patchy mild inflammation characterized by erythema was found in the duodenal bulb. Biopsies were taken with a cold forceps for histology. Verification of patient identification for the specimen was done. Estimated blood loss was minimal. 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 Biopsied. - Small hiatal hernia. - Gastritis. Biopsied. - Multiple oozing duodenal ulcers with pigmented material. Treated with a monopolar probe. - Chronic duodenitis. Biopsied. Recommendation: - Return patient to [facility] for ongoing care. - Resume previous diet. - Continue present medications. - Await pathology results. Procedure Code(s): --- Professional --- 41271, 59, Esophagogastroduodenoscopy, flexible, transoral; with control of bleeding, any method 71822, Esophagogastroduodenoscopy, flexible, transoral; with biopsy, single or multiple CPT copyright 2017 [employer] [place] [employer]. All rights reserved. The codes documented in this report are preliminary and upon hydrographic surveyor review may be revised to meet current compliance requirements. Chato Dewitt DO 05/17/2023 11:52:05 AM This report has been signed electronically. Number of Addenda: 0 Note Initiated On: 05/17/2023 11:01 AM
--- NOTE | 2023-05-17 11:53 | OP.CCLET_ITS ---
05/17/2023 Namita Hassan [address] [place] [address] Re : Upper GI endoscopy procedure for Loni Galdamez Dear Dr. Hassan This procedure was performed on Wednesday, May 17, 2023. 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 Biopsied. - Small hiatal hernia. - Gastritis. Biopsied. - Multiple oozing duodenal ulcers with pigmented material. Treated with a monopolar probe. - Chronic duodenitis. Biopsied. Recommendations : - Return patient to [facility] for ongoing care. - Resume previous diet. - Continue present medications. - Await pathology results. My findings are described in the full procedure note, which is enclosed. If I can be of further assistance, please feel free to contact me at . Sincerely, Chato Dewitt, 05/17/2023 11:52:05 AM This report has been signed electronically.
[2023-05-17] MEDS: Insulin Glargine-YFGN 100 UNIT/ML Pen 18 UNIT SC (13:18)
[2023-05-17] MEDS: Ferrous Sulfate 325 MG Tablet PO (13:19)
[2023-05-17] MEDS: Atorvastatin Calcium 40 MG Tablet PO (13:19)
[2023-05-17 13:43] LABS: Bedside Glucose 97 mg/dL (74-106)
[2023-05-17] MEDS: Insulin Lispro 100 UNIT/ML INSULN.PEN SC (16:37)
[2023-05-17 16:50] LABS: Bedside Glucose 187 mg/dL (74-106)
[2023-05-17] MEDS: Donepezil HCl 5 MG Tablet PO (21:45)
[2023-05-17] MEDS: Nystatin Powder 15gm Bottle 1 APPLIC TOPICAL (21:46)
[2023-05-18 04:10] VITALS: BMI 40.4
[2023-05-18 04:11] VITALS: BP 134/66; PULSE 64; RESP 16; TEMP 36.6; O2SAT 96
[2023-05-18 06:06] LABS: Absolute Lymphocyte Count 0.94 X10^3/uL (0.83-4.51); Absolute Neutrophil Count 3.2 X10^3/uL (2.0-7.7); Basophil# 0.02 X10^3/uL; Basophil% 0.4 % (0-1); Eosinophil# 0.28 X10^3/uL; Eosinophils% 5.6 % (0-5); Hematocrit 24.6 % (37-47); Hemoglobin 7.4 g/dL (12.0-15.0); Lymphocyte # 0.94 X10^3/ul (0.83-4.51); Lymphocyte % 18.9 % (19-41); Mean Corp Hgb Conc 30.1 g/dL (32-36); Mean Corpuscular Hgb 25.5 pg (27.0-32.0); Mean Corpuscular Volume 84.8 fL (81-99); Mean Platelet Vol. 10.2 fl (6.2-12.0); Monocyte# 0.53 X10^3/uL; Monocyte% 10.7 % (0-10); NRBC Flagged by Analyzer 0 % (0-5); Neutrophil # 3.18 X10^3/uL (2.7-7.7); POSITIVE MORPHOLOGY YES; Platelet Count 224 K/mm3 (150-450); RBC Distribution Width CV 26.9 % (11.6-14.6); RBC Distribution Width SD 82.4 fl (35.1-43.9)
[2023-05-18 06:07] LABS: Differential Indicated SCAN CRITERIA MET
[2023-05-18 06:28] LABS: Bedside Glucose 103 mg/dL (74-106)
[2023-05-18 06:31] LABS: ALB/GLOB Ratio 0.7 RATIO (0.9-2.4); AST(SGOT) 18 U/L (15-37); Alanine Aminotransfer ALT/SGPT 18 U/L (13-56); Albumin, Serum 2.5 g/dL (3.2-5.0); Alkaline Phosphatase 114 U/L (45-117); Anion Gap 2 (5-15); BUN 37 mg/dL (7-18); Calcium,Total 8.7 mg/dL (8.5-10.1); Chloride 107 mmol/L (98-107); Creatinine, Serum 1.12 mg/dL (0.55-1.02); EST Glomerular Filtration Rate 50 mL/min (>60); Est Glom Filt Rate - Afr Amer 61 mL/min (>60); Estimated Creatinine Clearance 30.21 ml/min; Globulin 3.6 g/dL (2.2-4.2); Glucose 100 mg/dL (74-106); Potassium 4.6 mmol/L (3.5-5.1); Protein, Total 6.1 g/dL (6.4-8.2); Sodium Level 134 mmol/L (136-145)
[2023-05-18 06:32] LABS: Differential Comment SCANNED
[2023-05-18 06:33] LABS: Acanthocytes RARE; Anisocytosis 1+
[2023-05-18 07:40] VITALS: O2SAT 94
--- NOTE | 2023-05-18 08:00 | CASEMGMT ---
Updates sent to [facility] and requested they start pre-cert. Plan: d/c to [facility] pending insurance approval. Monalisa Scott MSW DIORAMIST
[2023-05-18 08:32] VITALS: BP 124/61; PULSE 64; RESP 16; TEMP 36.7; O2SAT 95
[2023-05-18] MEDS: Insulin Glargine-YFGN 100 UNIT/ML Pen 18 UNIT SC (08:41)
[2023-05-18] MEDS: 0.9% Saline Lock 10 ML Syringe IV (08:41)
[2023-05-18] MEDS: Atorvastatin Calcium 40 MG Tablet PO (08:43)
[2023-05-18] MEDS: Nystatin Powder 15gm Bottle 1 APPLIC TOPICAL ×2 (08:43→22:29)
--- NOTE | 2023-05-18 08:45 | PN.HOSP_ITS ---
Reason for Visit Reason for Visit: Diagnoses Anemia, unspecified (05/14/23) Hyperkalemia (05/14/23) Essential (primary) hypertension (05/14/23) Unspecified atrial fibrillation (05/14/23) Duodenal ulcer, unspecified as acute or chronic, without hemorrhage or perforation (05/14/23) Subjective Subjective Feels well. No new complaints. Objective Data Objective Data Vital Signs: Vital Signs Temp Pulse Resp BP Pulse Ox O2 Del Method 36.7 C 64 16 124/61 H 95 Room Air 05/18/23 08:32 05/18/23 08:32 05/18/23 08:32 05/18/23 08:32 05/18/23 08:32 05/18/23 08:32 Oxygen Delivery Method Room Air Weight: 93.9 kg Body Mass Index (BMI) 40.4 Intake & Output: Intake and Output for Last 24 Hours 05/16/23 05/17/23 05/18/23 23:59 23:59 23:59 Intake Total 3220 / 3220 146.25 / 266.25 350 / 350 Output Total 1100 / 1100 200 / 400 200 / 200 Balance 2120 / 2120 -53.75 / -133.75 150 / 150 Lab / Micro Data 05/18/23 05:18 05/18/23 05:18 Labs: Laboratory Results - last 24 hr 05/17/23 13:22: POC Glucose 97 05/17/23 16:33: POC Glucose 187 H 05/18/23 05:18: WBC 5.0, RBC 2.90 L, Hgb 7.4 L, Hct 24.6 L, MCV 84.8, MCH 25.5 L , MCHC 30.1 L, RDW Std Deviation 82.4 H, RDW Coeff of Deep 26.9 H, Plt Count 224, MPV 10.2, Immature Gran % (Auto) 0.400, Neut % (Auto) 64.0, Lymph % (Auto) 18.9 L, [place] % (Auto) 10.7 H, Eos % (Auto) 5.6 H, Baso % (Auto) 0.4, Absolute Neuts (auto) 3.2, Absolute Lymphs (auto) 0.94, Nucleated RBC % 0, Differential Comment SCANNED, Anisocytosis 1+, Acanthocytes (Spur) RARE, Sodium 134 L, Potassium 4.6, Chloride 107, Carbon Dioxide 25.0, Anion Gap 2 L, BUN 37 H, Creatinine 1.12 H, Estim Creat Clear Calc 30.21, Est GFR (MDRD) Af Amer 61, Est GFR (MDRD) Non-Af 50 L, BUN/Creatinine Ratio 33.0 H, Glucose 100, Calcium 8.7, Total Bilirubin 0.80, AST 18, ALT 18, Alkaline Phosphatase 114, Total Protein 6.1 L, Albumin 2.5 L, Globulin 3.6, Albumin/Globulin Ratio 0.7 L 05/18/23 05:46: POC Glucose 103 Physical Exam Const alert Constitutional Narrative: up in room with walker, working with therapy. HEENT head/scalp atraumatic Neuro oriented x3 Sensorium / Orientation: awake and alert Assessment & Plan Assessment/Plan (1) Acute hyperkalemia: PLAN: resolved Admission potassium 6.4, not noted to be hemolyzed, in the ED. Patient was given hyperkalemia cocktail and Kayexalate. Repeat potassium 5.1 with slight hemolysis. 05/16: Repeat potassium is normal at 4.1. (2) Symptomatic anemia: PLAN: Concern for Acute GI bleed with acute symptomatic Anemia on chronic normocytic anemia/iron deficiency anemia with associated Hypotension: Admission Hgb 7.1 which is similar to recent discharge but significant hypotension upon initial presentation. Patient admitted in PCU. 2 units of PRBC transfusion last hemoglobin 9.0. GI consulted. Serum iron low, TIBC normal, iron saturation 9.7% and ferritin 113. Overall suggestive of mixed, chronic iron deficiency anemia and anemia of chronic disease Patient on pantoprazole 40 mg IV twice daily. 05/16: Hemoglobin 8.3. Platelet count 225,000. Seen by supervisor sawmill. Plan for EGD tomorrow AM. Continue Protonix. Possible colonoscopy as an outpatient as it seems patient is high risk for colonoscopy and prolonged ischemia due to severe bradycardia with pauses and bifascicular block. (3) Duodenal ulcer: PLAN: PPI PLAN: Plan Chronic conditions: * Chronic A-fib with severe bradycardia, missed heartbeat and pauses: On court recording monitor patient heart rate in the morning was 39/min with sinus pauses about 3 seconds. Test Lead Application Testing consulted and discussed with Dr. Chan. Most likely due to atenolol 25 mg twice daily which is on hold since admission. Eliquis on hold because of GI bleed most recent heart rate 45/min. Twelve-lead EKG was reviewed yesterday. Heart rate 37 bpm, LA D low voltage QRS, RBBB, LAFB suggestive of bifascicular block. 05/16:Discussed with the security risk analyst. Continue to hold beta-mendoza. 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 * Chronic Kidney Disease Stage IIIb likely secondary to underlying hypertensive and diabetic disease history: Admission BUN/Cr 80/1.59, baseline renal function more recently 1.3-1.4, had been up to 1.8 during prior presentation but improved, continue to trend. 05/16: BUNs/creatinine 56/1.15, estimated creatinine clearance about 30 mill per minute. * Dementia, unclear type with unclear behavioral disturbance history: We will continue patient home Aricept, complicates presentation, PT/OT/case management consulted for discharge planning, preferentially skilled placement given unsafe for any return to home concept without caregiver. * History CVA/CVD: Holding antiplatelet and anticoagulation given acute prese ntation, given hypotension also holding HTN regimen, continue home statin regimen. * Hypertension: Given hypotensive presentation holding home regimen, add back once appropriate. * Hyperlipidemia: We will continue patient home statin therapy. * Diabetes mellitus type II: Hold oral home regimen, will continue patient home insulin regimen long-acting however if BS trending low would administer 1/2 dose or hold while NPO, maintain on q 6 hour accu checks w/ ISS. * Obesity: Weight loss and lifestyle changes encouraged. * Abnormal TSH: TSH was 9.09 during previous hospitalization. FT4 1.08 DVT prophylaxis: SCDs, d/c her anticoagulant given acute presentation as noted. CODE status: Patient does not have HCPOA or LW in place but her son is her caregiver normally; however, he himself was recently hospitalized. Full Code. Disposition: back to [facility] pending insurance authorization. Expressed concern about pt going back home with her son, Julio, with her other son. Julio unable to adequately care for them both. Charges/Coding Visit Charges Inpatient E&M: 05539 Subs Hosp L1
--- NOTE | 2023-05-18 10:51 | TREXTCAR_ITS ---
Diet Diet Order/Speech Therapy: 05/17/23 11:59 Diet: Full Liquid Is pt able to select menu?: No Advance to: Regular Routine Orders/Code Status Routine Lab Work: CBC (Wednesday) and BMP (Wednesday) Code Status: Full Code Therapies Weight Bearing: Full weight bearing Physical Therapy: Eval and Treat Occupational Therapy: Eval and Treat Problem/Diagnosis (1) Acute hyperkalemia: Status: Acute Code(s): E87.5 - Hyperkalemia Plan: resolved Admission potassium 6.4, not noted to be hemolyzed, in the ED. Patient was given hyperkalemia cocktail and Kayexalate. Repeat potassium 5.1 with slight hemolysis. 05/16: Repeat potassium is normal at 4.1. (2) Symptomatic anemia: Status: Acute Code(s): D64.9 - Anemia, unspecified Plan: Concern for Acute GI bleed with acute symptomatic Anemia on chronic normocytic anemia/iron deficiency anemia with associated Hypotension: Admission Hgb 7.1 which is similar to recent discharge but significant hypotension upon initial presentation. Patient admitted in PCU. 2 units of PRBC transfusion last hemoglobin 9.0. GI consulted. Serum iron low, TIBC normal, iron saturation 9.7% and ferritin 113. Overall suggestive of mixed, chronic iron deficiency anemia and anemia of chronic diseas e Patient on pantoprazole 40 mg IV twice daily. 05/16: Hemoglobin 8.3. Platelet count 225,000. Seen by timber surveyor. Plan for EGD tomorrow AM. Continue Protonix. Possible colonoscopy as an o utpatient as it seems patient is high risk for colonoscopy and prolonged ischemia due to severe bradycardia with pauses and bifascicular block. (3) Duodenal ulcer: Status: Acute Code(s): K26.9 - Duodenal ulcer, unspecified as acute or chronic, without hemorrhage or perforation Plan: PPI Plan Chronic conditions: * Chronic A-fib with severe bradycardia, missed heartbeat and pauses: On bus driver/monitor patient heart rate in the morning was 39/min with sinus pauses about 3 seconds. Grill Cook consulted and discussed with Dr. Chan. Most likely due to atenolol 25 mg twice daily which is on hold since admission. Eliquis on hold because of GI bleed most recent heart rate 45/min. Twelve-lead EKG was reviewed yesterday. Heart rate 37 bpm, LA D low voltage QRS, RBBB, LAFB suggestive of bifascicular block. 05/16:Discussed with the railroad commissioner. Continue to hold beta-mendoza. 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 * Chronic Kidney Disease Stage IIIb likely secondary to underlying hypertensive and diabetic disease history: Admission BUN/Cr 80/1.59, baseline renal function more recently 1.3-1.4, had been up to 1.8 during prior presentation but improved, continue to trend. 05/16: BUNs/creatinine 56/1.15, estimated creatinine clearance about 30 mill per minute. * Dementia, unclear type with unclear behavioral disturbance history: We will continue patient home Aricept, complicates presentation, PT/OT/case management consulted for discharge planning, preferentially skilled placement given unsafe for any return to home concept without caregiver. * History CVA/CVD: Holding antiplatelet and anticoagulation given acute p resentation, given hypotension also holding HTN regimen, continue home statin regimen. * Hypertension: Given hypotensive presentation holding home regimen, add back once appropriate. * Hyperlipidemia: We will continue patient home statin therapy. * Diabetes mellitus type II: Hold oral home regimen, will continue patient home insulin regimen long-acting however if BS trending low would administer 1/2 dose or hold while NPO, maintain on q 6 hour accu checks w/ ISS. * Obesity: Weight loss and lifestyle changes encouraged. * Abnormal TSH: TSH was 9.09 during previous hospitalization. FT4 1.08 DVT prophylaxis: SCDs, d/c her anticoagulant given acute presentation as noted. CODE status: Patient does not have HCPOA or LW in place but her son is her caregiver normally; however, he himself was recently hospitalized. Full Code. Disposition: back to [place] when stable. Expressed concern about pt going back home with her son, Julio, with her other son. Julio unable to adequately care for them both. Allergies/Procedures Done in Hospital Allergies No Known Allergies Allergy (Verified 05/14/23 20:29) Procedures: EGD Type of Care/Length of Stay Estimated LOS: Convalescent Care Less Than 30 days Type of Care Needed: Skilled Rehab Potential: Good Prognosis: Good Additional Orders/Day of Discharge Day of Discharge: 05/18/23 Dietary and Speech Recommendations Dietitian Recommendations/Changes: Recommend diet as tolerated to Transitional with goal of Cardiac diet. Offer ONS as needed one PO established with meals. Discharge Plan Admission Admit Date/Time: 05/14/23 22:49 Primary Reason for Your Visit: Gi bleed Attending Provider: Milad Silva Primary Care Provider: Namita Hassan Consulting Providers: Shelby Wallace; Boaz Chan; Arnaldo Gudino Discharge Orders/Prescriptions Prescriptions: New acetaminophen 325 mg Tablet 650 mg PO Q4H PRN PRN (Reason: Fever, pain -07/27) Qty: 0 0RF melatonin 3 mg Tablet 3 mg PO QHS PRN PRN (Reason: Insomnia) Qty: 0 0RF pantoprazole [Protonix] 40 mg tablet,delayed release (DR/EC) 40 mg PO BID Qty: 60 0RF Continued atorvastatin 40 mg tablet 40 mg PO QDAY donepezil 5 mg tablet 5 mg PO QHS insulin glargine [Lantus Solostar U-100 Insulin] 100 unit/mL (3 mL) insulin pen 18 unit SC DIRECTED Patient Comments: 18 U at bedtime per ecf list nystatin [Nyamyc] 100,000 unit/gram Powder 1 applic topical BID 30 Days Qty: 0 0RF Protocol: *Topical Application Instructions APPLICATION INSTRUCTIONS: apply to affected area Rx Instructions: Continue application until intertrigo resolved. insulin lispro [Humalog KwikPen Insulin] 100 unit/mL Insulin Pen See Protocol subcut TIDAC 30 Days Qty: 0 0RF Protocol: 3. Sliding Scale Insulin Med Dosing Condition: 150-189 mg/dl = 1 unit Condition: 190-229 mg/dl = 2 units Condition: 230-269 mg/dl = 3 units Condition: 270-309 mg/dl = 4 units Condition: 310-349 mg/dl = 5 units Condition: 350-399 mg/dl = 6 units Condition: 400-449 mg/dl = 7 units Condition: Greater than 449 call physician Protocol Text: - Use for Total Daily Dose of Insulin 37-55 units - Obsese, infected, or steroid patients MEDIUM DOSING ALGORITHIM Rx Instructions: Sliding Scale Insulin Medium Dosin-189 BS=1 u, 190-229 BS=2 u, 230-269 BS=3 u, 270-309 BS=4 u, 310-349 BS=5 u, 350-399 BS=6 u, 400 BS= 7 u Glucerna 1.2 [place]ie 0.06-1.2 gram-kcal/mL Liquid 120 ml PO TIDCM 30 Days Qty: 0 0RF ferrous sulfate [FeroSul] 325 mg (65 mg iron) Tablet 325 mg PO DAILY@1200 30 Days Qty: 0 0RF Held clopidogrel 75 mg tablet 75 mg PO QDAY Hold Instructions: Resume on 05/24/23. Eliquis 5 mg Tablet 2.5 mg PO BID 30 Days Qty: 30 0RF Hold Instructions: Resume on 05/24/23. Discontinued hydrochlorothiazide 25 mg tablet 25 mg PO QAM Hold Instructions: Resume on 05/17/23. May reassess renal function and BP and if appropriate may consider adding back otherwise may discontinue. furosemide 20 mg tablet 20 mg PO QDAY Hold Instructions: Resume on 05/17/23. May reassess renal function and BP and if appropriate may consider adding back otherwise may discontinue. atenolol 25 mg tablet 25 mg PO BID enalapril maleate 10 mg tablet 10 mg PO .COMPLEX Patient Comments: 10 mg PO 2 tablets every morning and 1 tablet in the evening Rx Instructions: 10 mg PO 2 tablets every morning and 1 tablet in the evening nitroglycerin 0.4 mg tablet, sublingual 0.4 mg SUBLINGUAL Q5M PRN (Reason: chest pain) Qty: 25 3RF pioglitazone 30 mg tablet 30 mg PO DAILY Referrals / Follow Up: Namita Hassan MD [Primary Care Provider] - Within 2 Weeks [facility] [Provider Group] - Within 3 Months [facility] [Provider Group] - Within 1 Month Disposition Disposition (needs filled in before D/C Order can be placed): Care Home Facility
[2023-05-18 11:45] LABS: Bedside Glucose 140 mg/dL (74-106)
--- NOTE | 2023-05-18 12:00 | PN.GI_ITS ---
Subjective Subjective Patient is very pleasant and is doing very well after undergoing upper endoscopy yesterday for acute blood loss anemia. Objective Data Objective Data Vital Signs: Vital Signs Temp Pulse Resp BP Pulse Ox O2 Del Method 98 F 58 L 16 154/56 H 97 Room Air 05/18/23 15:05 05/18/23 15:05 05/18/23 15:05 05/18/23 15:05 05/18/23 15:05 05/18/23 15:16 Oxygen Delivery Method Room Air Weight: 207 lb 0.225 oz Body Mass Index (BMI) 40.4 Intake & Output: Intake and Output for Last 24 Hours 05/16/23 05/17/23 05/18/23 23:59 23:59 23:59 Intake Total 3220 / 3220 146.25 / 266.25 1552.5 / 1552.5 Output Total 1100 / 1100 200 / 400 200 / 200 Balance 2120 / 2120 -53.75 / -133.75 1352.5 / 1352.5 Lab / Micro Data 05/18/23 05:18 05/18/23 05:18 Labs: Laboratory Results - last 24 hr 05/18/23 05:18: WBC 5.0, RBC 2.90 L, Hgb 7.4 L, Hct 24.6 L, MCV 84.8, MCH 25.5 L , MCHC 30.1 L, RDW Std Deviation 82.4 H, RDW Coeff of Deep 26.9 H, Plt Count 224, MPV 10.2, Immature Gran % (Auto) 0.400, Neut % (Auto) 64.0, Lymph % (Auto) 18.9 L, [place] % (Auto) 10.7 H, Eos % (Auto) 5.6 H, Baso % (Auto) 0.4, Absolute Neuts (auto) 3.2, Absolute Lymphs (auto) 0.94, Nucleated RBC % 0, Differential Comment SCANNED, Anisocytosis 1+, Acanthocytes (Spur) RARE, Sodium 134 L, Potassium 4.6, Chloride 107, Carbon Dioxide 25.0, Anion Gap 2 L, BUN 37 H, Creatinine 1.12 H, Estim Creat Clear Calc 30.21, Est GFR (MDRD) Af Amer 61, Est GFR (MDRD) Non-Af 50 L, BUN/Creatinine Ratio 33.0 H, Glucose 100, Calcium 8.7, Total Bilirubin 0.80, AST 18, ALT 18, Alkaline Phosphatase 114, Total Protein 6.1 L, Albumin 2.5 L, Globulin 3.6, Albumin/Globulin Ratio 0.7 L 05/18/23 05:46: POC Glucose 103 05/18/23 11:15: POC Glucose 140 H Physical Exam Const alert Constitutional Narrative: up in room with walker, working with therapy. HEENT head/scalp atraumatic Neuro oriented x3 Sensorium / Orientation: awake and alert Assessment & Plan Assessment/Plan (1) Duodenal ulcer: (2) Acute hypotension: (3) Symptomatic anemia: PLAN: Plan 77-year-old with past medical history of renal urgency, hypertension, diabetes, acute on chronic anemia on iron, CAD status post non-ST segment elevation [place] on Plavix. 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 Biopsied. - Small hiatal hernia. - Gastritis. Biopsied. - Multiple oozing duodenal ulcers with pigmented material. Treated with a monopolar probe. - Chronic duodenitis. Biopsied. Awaiting biopsies. Pending the biopsies of her distal esophagus for long segment Munoz's esophagus she may need radiofrequency ablation. For now continue PPI therapy as ordered. Charges/Coding Visit Charges Inpatient E&M: 33095 Subs Hosp L3
[2023-05-18] MEDS: Ferrous Sulfate 325 MG Tablet PO (12:26)
[2023-05-18 15:05] VITALS: BP 154/56; PULSE 58; RESP 16; TEMP 36.6; O2SAT 97
[2023-05-18] MEDS: Acetaminophen 325 MG Tablet 650 MG PO (15:09)
[2023-05-18 17:44] LABS: Bedside Glucose 139 mg/dL (74-106)
[2023-05-18 21:25] VITALS: BP 144/44; PULSE 56; RESP 18; TEMP 36.9; O2SAT 95
[2023-05-18] MEDS: Donepezil HCl 5 MG Tablet PO (22:28)
[2023-05-19 03:00] VITALS: BP 149/53; PULSE 59; RESP 18; TEMP 36.9; O2SAT 94
[2023-05-19 05:26] VITALS: BMI 40.8
[2023-05-19 06:48] LABS: Bedside Glucose 110 mg/dL (74-106)
[2023-05-19 07:47] VITALS: BP 136/54; PULSE 69; RESP 15; TEMP 36.7; O2SAT 95
--- NOTE | 2023-05-19 08:36 | PN.HOSP_ITS ---
Reason for Visit Reason for Visit: Diagnoses Anemia, unspecified (05/14/23) Hyperkalemia (05/14/23) Essential (primary) hypertension (05/14/23) Unspecified atrial fibrillation (05/14/23) Hypotension, unspecified (05/14/23) Duodenal ulcer, unspecified as acute or chronic, without hemorrhage or perforation (05/14/23) Subjective Subjective Complains of pain in left knee. That occurred several weeks ago after falling. Objective Data Objective Data Vital Signs: Vital Signs Temp Pulse Resp BP Pulse Ox O2 Del Method 36.7 C 69 15 136/54 H 95 Room Air 05/19/23 07:47 05/19/23 07:47 05/19/23 07:47 05/19/23 07:47 05/19/23 07:47 05/19/23 07:51 Oxygen Delivery Method Room Air Weight: 95 kg Body Mass Index (BMI) 40.8 Intake & Output: Intake and Output for Last 24 Hours 05/17/23 05/18/23 05/19/23 23:59 23:59 23:59 Intake Total 146.25 / 266.25 2077.5 / 2077.5 230 / 230 Output Total 200 / 400 200 / 200 Balance -53.75 / -133.75 1877.5 / 1877.5 230 / 230 Lab / Micro Data 05/18/23 05:18 05/18/23 05:18 Labs: Laboratory Results - last 24 hr 05/18/23 11:15: POC Glucose 140 H 05/18/23 17:03: POC Glucose 139 H 05/19/23 05:45: POC Glucose 110 H Physical Exam Const alert and no apparent distress HEENT head/scalp atraumatic and moist oral mucous membranes Extremity Extremity Narrative: left knee without effusion nor erythema. Neuro Sensorium / Orientation: awake and alert Psych affect normal Assessment & Plan Assessment/Plan (1) Acute hyperkalemia: PLAN: resolved Admission potassium 6.4, not noted to be hemolyzed, in the ED. Patient was given hyperkalemia cocktail and Kayexalate. Repeat potassium 5.1 with slight hemolysis. 05/16: Repeat potassium is normal at 4.1. (2) Symptomatic anemia: PLAN: Concern for Acute GI bleed with acute symptomatic Anemia on chronic normocytic anemia/iron deficiency anemia with associated Hypotension: Admission Hgb 7.1 which is similar to recent discharge but significant hypotension upon initial presentation. Patient admitted in PCU. 2 units of PRBC transfusion last hemoglobin 9.0. GI consulted. Serum iron low, TIBC normal, iron saturation 9.7% and ferritin 113. Overall suggestive of mixed, chronic iron deficiency anemia and anemia of chronic disease Patient on pantoprazole 40 mg IV twice daily. 05/16: Hemoglobin 8.3. Platelet count 225,000. Seen by tobacco warehouse manager. P kwabena for EGD tomorrow AM. Continue Protonix. Possible colonoscopy as an outpatient as it seems patient is high risk for colonoscopy and prolonged ischemia due to severe bradycardia with pauses and bifascicular block. (3) Duodenal ulcer: PLAN: PPI source of anemia (4) Left knee pain: PLAN: has been able to walk on it, but limited due to pain. suspect OA. pain control PLAN: Plan Chronic conditions: * Chronic A-fib with severe bradycardia, missed heartbeat and pauses: On monitor tech patient heart rate in the morning was 39/min with sinus pauses about 3 seconds. Station Captain consulted and discussed with Dr. Chan. Most likely due to atenolol 25 mg twice daily which is on hold since admission. Eliquis on hold because of GI bleed most recent heart rate 45/min. Twelve-lead EKG was reviewed yesterday. Heart rate 37 bpm, LA D low voltage QRS, RBBB, LAFB suggestive of bifascicular block. 05/16:Discussed with the sampler first. Continue to hold beta-mendoza. 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 * Chronic Kidney Disease Stage IIIb likely secondary to underlying hypertensive and diabetic disease history: Admission BUN/Cr 80/1.59, baseline renal function more recently 1.3-1.4, had been up to 1.8 during prior presentation but improved, continue to trend. 05/16: BUNs/creatinine 56/1.15, estimated creatinine clearance about 30 mill per minute. * Dementia, unclear type with unclear behavioral disturbance history: We will continue patient home Aricept, complicates presentation, PT/OT/case management consulted for discharge planning, preferentially skilled placement given unsafe for any return to home concept without caregiver. * History CVA/CVD: Holding antiplatelet and anticoagulation given acute presentation, given hypotension also holding HTN regimen, continue home statin regimen. * Hypertension: Given hypotensive presentation holding home regimen, add back once appropriate. * Hyperlipidemia: We will continue patient home statin therapy. * Diabetes mellitus type II: Hold oral home regimen, will continue patient home insulin regimen long-acting however if BS trending low would administer 1/2 dose or hold while NPO, maintain on q 6 hour accu checks w/ ISS. * Obesity: Weight loss and lifestyle changes encouraged. * Abnormal TSH: TSH was 9.09 during previous hospitalization. FT4 1.08 DVT prophylaxis: SCDs, d/c her anticoagulant given acute presentation as noted. CODE status: Patient does not have HCPOA or LW in place but her son is her caregiver normally; however, he himself was recently hospitalized. Full Code. Disposition: back to [place] pending insurance authorization. Expressed concern about pt going back home with her son, Julio, with her other son. Julio unable to adequately care for them both. Charges/Coding Visit Charges Inpatient E&M: 72036 Subs Hosp L2
[2023-05-19] MEDS: 0.9% Saline Lock 10 ML Syringe IV (09:49)
[2023-05-19] MEDS: Atorvastatin Calcium 40 MG Tablet PO (09:51)
[2023-05-19] MEDS: Insulin Glargine-YFGN 100 UNIT/ML Pen 18 UNIT SC (09:51)
[2023-05-19] MEDS: Nystatin Powder 15gm Bottle 1 APPLIC TOPICAL ×2 (09:52→21:32)
[2023-05-19] MEDS: Ferrous Sulfate 325 MG Tablet PO (11:12)
[2023-05-19 12:04] LABS: Bedside Glucose 181 mg/dL (74-106)
--- NOTE | 2023-05-19 12:24 | CASEMGMT ---
SOFIE checked with Stephanie to see if they have heard anything regarding pre-cert. Stephanie told SW they have not started the pre-cert. SOFIE asked them to please start the pre-cert as patient is ready. SOFIE also reminded them that SOFIE did request they start pre-cert yesterday am. Monalisa PICKENS
[2023-05-19] MEDS: Acetaminophen 500 MG Tablet 1000 MG PO ×2 (15:20→21:32)
[2023-05-19 15:22] VITALS: BP 160/53; PULSE 69; RESP 16; TEMP 36.6; O2SAT 96
[2023-05-19 17:05] LABS: Bedside Glucose 147 mg/dL (74-106)
--- NOTE | 2023-05-19 17:24 | EX.PCM.PN.GI ---
Subjective Subjective Patient is doing a lot better and regarding nausea. She is tolerating a diet. Objective Data Objective Data Vital Signs: Vital Signs Temp Pulse Resp BP Pulse Ox O2 Del Method 97.8 F 69 16 160/53 H 96 Room Air 05/19/23 15:22 05/19/23 15:22 05/19/23 15:22 05/19/23 15:22 05/19/23 15:22 05/19/23 15:37 Oxygen Delivery Method Room Air Weight: 209 lb 7.026 oz Body Mass Index (BMI) 40.8 Intake & Output: Intake and Output for Last 24 Hours 05/17/23 05/18/23 05/19/23 23:59 23:59 23:59 Intake Total 146.25 / 266.25 2077.5 / 2077.5 865 / 865 Output Total 200 / 400 200 / 200 600 / 600 Balance -53.75 / -133.75 1877.5 / 1877.5 265 / 265 Lab / Micro Data 05/18/23 05:18 05/18/23 05:18 Labs: Laboratory Results - last 24 hr 05/18/23 17:03: POC Glucose 139 H 05/19/23 05:45: POC Glucose 110 H 05/19/23 11:07: POC Glucose 181 H 05/19/23 16:48: POC Glucose 147 H Physical Exam Const alert Constitutional Narrative: up in room with walker, working with therapy. HEENT head/scalp atraumatic Neuro oriented x3 Sensorium / Orientation: awake and alert Assessment & Plan Assessment/Plan (1) Duodenal ulcer: (2) Acute hypotension: (3) Symptomatic anemia: PLAN: Plan 77-year-old with past medical history of renal urgency, hypertension, diabetes, acute on chronic anemia on iron, CAD status post non-ST segment elevation [place] on Plavix. 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 Biopsied. - Small hiatal hernia. - Gastritis. Biopsied. - Multiple oozing duodenal ulcers with pigmented material. Treated with a monopolar probe. - Chronic duodenitis. Biopsied. Awaiting biopsies. Pending the biopsies of her distal esophagus for long segment Munoz's esophagus she may need radiofrequency ablation. For now continue PPI therapy as ordered. Charges/Coding Visit Charges Inpatient E&M: 76940 Subs Hosp L3
[2023-05-19 21:19] VITALS: BP 167/58; PULSE 64; RESP 18; TEMP 36.1; O2SAT 99
[2023-05-19] MEDS: Donepezil HCl 5 MG Tablet PO (21:32)
[2023-05-20 01:13] LABS: Bedside Glucose 116 mg/dL (74-106)
[2023-05-20 03:10] VITALS: BMI 40.8
[2023-05-20 03:30] VITALS: BP 167/42; PULSE 58; RESP 18; TEMP 36.2; O2SAT 96
[2023-05-20 03:58] VITALS: PULSE 58
[2023-05-20] MEDS: Acetaminophen 500 MG Tablet 1000 MG PO ×3 (06:10→20:50)
[2023-05-20 07:57] VITALS: BP 149/55; PULSE 57; RESP 14; TEMP 36.7; O2SAT 95
[2023-05-20 08:29] LABS: Bedside Glucose 89 mg/dL (74-106)
--- NOTE | 2023-05-20 09:20 | PCM.PN.HOSP ---
Reason for Visit Reason for Visit: Diagnoses Anemia, unspecified (05/14/23) Hyperkalemia (05/14/23) Essential (primary) hypertension (05/14/23) Unspecified atrial fibrillation (05/14/23) Hypotension, unspecified (05/14/23) Duodenal ulcer, unspecified as acute or chronic, without hemorrhage or perforation (05/14/23) Pain in left knee (05/14/23) Subjective Subjective No new events. Objective Data Objective Data Vital Signs: Vital Signs Temp Pulse Resp BP Pulse Ox O2 Del Method 36.7 C 57 L 14 149/55 H 95 Room Air 05/20/23 07:57 05/20/23 07:57 05/20/23 07:57 05/20/23 07:57 05/20/23 07:57 05/20/23 08:05 Oxygen Delivery Method Room Air Weight: 94.9 kg Body Mass Index (BMI) 40.8 Intake & Output: Intake and Output for Last 24 Hours 05/18/23 05/19/23 05/20/23 23:59 23:59 23:59 Intake Total 2077.5 / 2077.5 1300 / 1522 222 / 222 Output Total 200 / 200 600 / 600 Balance 1877.5 / 1877.5 700 / 922 222 / 222 Lab / Micro Data 05/18/23 05:18 05/18/23 05:18 Labs: Laboratory Results - last 24 hr 05/19/23 11:07: POC Glucose 181 H 05/19/23 16:48: POC Glucose 147 H 05/19/23 21:30: POC Glucose 116 H 05/20/23 08:08: POC Glucose 89 Physical Exam Const alert Constitutional Narrative: up in chair. non-toxic. Extremity normal to inspection Psych affect normal Assessment & Plan Assessment/Plan (1) Acute hyperkalemia: PLAN: resolved Admission potassium 6.4, not noted to be hemolyzed, in the ED. Patient was given hyperkalemia cocktail and Kayexalate. Repeat potassium 5.1 with slight hemolysis. 05/16: Repeat potassium is normal at 4.1. (2) Symptomatic anemia: PLAN: Concern for Acute GI bleed with acute symptomatic Anemia on chronic normocytic anemia/iron deficiency anemia with associated Hypotension: Admission Hgb 7.1 which is similar to recent discharge but significant hypotension upon initial presentation. Patient admitted in PCU. 2 units of PRBC transfusion last hemoglobin 9.0. GI consulted. Serum iron low, TIBC normal, iron saturation 9.7% and ferritin 113. Overall suggestive of mixed, chronic iron deficiency anemia and anemia of chronic disease Patient on pantoprazole 40 mg IV twice daily. 05/16: Hemoglobin 8.3. Platelet count 225,000. Seen by answering service agent. Plan for EGD tomorrow AM. Continue Protonix. Possible colonoscopy as an outpatient as it seems patient is high risk for colonoscopy and prolonged ischemia due to severe bradycardia with pauses and bifascicular block. (3) Duodenal ulcer: PLAN: PPI source of anemia (4) Left knee pain: QUALIFIERS: Chronicity: chronic Qualified Code(s): M25.562 - Pain in left knee; G89.29 - Other chronic pain PLAN: has been able to walk on it, but limited due to pain. suspect OA. pain control PLAN: Plan Chronic conditions: Chronic A-fib with severe bradycardia, missed heartbeat and pauses: On media monitor patient heart rate in the morning was 39/min with sinus pauses about 3 seconds. It Business Process Architect consulted and discussed with Dr. Chan. Most likely due to atenolol 25 mg twice daily which is on hold since admission. Eliquis on hold because of GI bleed most recent heart rate 45/min. Twelve-lead EKG was reviewed yesterday. Heart rate 37 bpm, LA D low voltage QRS, RBBB, LAFB suggestive of bifascicular block. 05/16:Discussed with the curtain cutter. Continue to hold beta-mendoza. Patient was on atenolol 25 mg twice daily probably has to decrease to 25 mg daily if heart rate improves further or goes tachycardia Adult failure to thrive with debility, wheelchair-bound, unable to safely care for self: Complicates presentation, recent SNF transition secondary to inability to safely care for self, PT/OT/case management consultation for discharge planning, maintain on fall precautions. Chronic Kidney Disease Stage IIIb likely secondary to underlying hypertensive and diabetic disease history: Admission BUN/Cr 80/1.59, baseline renal function more recently 1.3-1.4, had been up to 1.8 during prior presentation but improved, continue to trend. 05/16: BUNs/creatinine 56/1.15, estimated creatinine clearance about 30 mill per minute. Dementia, unclear type with unclear behavioral disturbance history: We will continue patient home Aricept, complicates presentation, PT/OT/case management consulted for discharge planning, preferentially skilled placement given unsafe for any return to home concept without caregiver. History CVA/CVD: Holding antiplatelet and anticoagulation given acute presentation, given hypotension also holding HTN regimen, continue home statin regimen. Hypertension: Given hypotensive presentation holding home regimen, add back once appropriate. Hyperlipidemia: We will continue patient home statin therapy. Diabetes mellitus type II: Hold oral home regimen, will continue patient home insulin regimen long-acting however if BS trending low would administer 1/2 dose or hold while NPO, maintain on q 6 hour accu checks w/ ISS. Obesity: Weight loss and lifestyle changes encouraged. Abnormal TSH: TSH was 9.09 during previous hospitalization. FT4 1.08 DVT prophylaxis: SCDs, d/c her anticoagulant given acute presentation as noted. CODE status: Patient does not have HCPOA or LW in place but her son is her caregiver normally; however, he himself was recently hospitalized. Full Code. Disposition: back to [place] pending insurance authorization. Expressed concern about pt going back home with her son, Julio, with her other son. Julio unable to adequately care for them both. Charges/Coding Visit Charges Inpatient E&M: 06654 Subs Hosp L1
[2023-05-20] MEDS: Ferrous Sulfate 325 MG Tablet PO (11:25)
[2023-05-20] MEDS: Atorvastatin Calcium 40 MG Tablet PO (11:25)
[2023-05-20] MEDS: Insulin Glargine-YFGN 100 UNIT/ML Pen 18 UNIT SC (11:26)
[2023-05-20] MEDS: Nystatin Powder 15gm Bottle 1 APPLIC TOPICAL ×2 (11:27→20:49)
[2023-05-20] MEDS: Lidocaine 5% Patch 1 PATCH TOPICAL (11:28)
[2023-05-20] MEDS: 0.9% Saline Lock 10 ML Syringe IV (11:31)
[2023-05-20 12:32] LABS: Bedside Glucose 128 mg/dL (74-106)
[2023-05-20 14:28] VITALS: BP 157/52; PULSE 56; RESP 16; TEMP 36.8; O2SAT 99
[2023-05-20 16:17] LABS: Bedside Glucose 128 mg/dL (74-106)
[2023-05-20 18:56] VITALS: BP 178/43; PULSE 55; RESP 16; TEMP 36.3; O2SAT 96
[2023-05-20] MEDS: Donepezil HCl 5 MG Tablet PO (20:50)
[2023-05-20 21:10] LABS: Bedside Glucose 129 mg/dL (74-106)
[2023-05-21] VITALS: BP 149/36; PULSE 59; RESP 16; TEMP 36.7; O2SAT 98
[2023-05-21 03:41] VITALS: BMI 40.8
[2023-05-21 06:00] VITALS: BP 159/62; PULSE 77; RESP 16; TEMP 36.2; O2SAT 96
[2023-05-21] MEDS: Acetaminophen 500 MG Tablet 1000 MG PO (06:34)
[2023-05-21 07:39] LABS: Bedside Glucose 101 mg/dL (74-106)
--- NOTE | 2023-05-21 09:02 | CASEMGMT ---
Patient was approved to go to [facility]. SW notified physician. Plan: d/c to [facility] under skilled level of care. Monalisa PICKENS
[2023-05-21 09:08] VITALS: O2SAT 92
[2023-05-21] MEDS: Pantoprazole Sodium 40 MG Tablet PO (10:32)
[2023-05-21] MEDS: Nystatin Powder 15gm Bottle 1 APPLIC TOPICAL (10:32)
[2023-05-21] MEDS: Atorvastatin Calcium 40 MG Tablet PO (10:33)
[2023-05-21] MEDS: Ferrous Sulfate 325 MG Tablet PO (10:33)
[2023-05-21] MEDS: Lidocaine 5% Patch 1 PATCH TOPICAL (10:33)
[2023-05-21] MEDS: Insulin Glargine-YFGN 100 UNIT/ML Pen 18 UNIT SC (10:33)
[2023-05-21 10:40] VITALS: BP 157/57; PULSE 63; RESP 14; TEMP 36.6; O2SAT 98
--- NOTE | 2023-05-21 10:49 | CASEMGMT ---
SOFIE spoke with patient and her son Song will transport her to [place]. SOFIE called Song and he will be at [facility] at 1130. SOFIE sent orders and car pick up driver time to [place] via [facility]. SOFIE also notified RN, supercharger mechanic, hospital secretary, physician, and patient. Plan: d/c back to [place] under skilled level of care. Patient's son Song transported patient via private vehicle. Monalisa PICKENS
--- NOTE | 2023-05-21 10:58 | DS.PCM_ITS ---
Providers Date of Admission: 05/14/23 Primary Care Physician: Dr. Namita Hassan MD Consultations 05/15/23 00:27 Consult: Gastroenterology Routine Consulting Provider: [facility] Reason for Consult: Symptomatic anemia, concern possible GI bleed component. EMERGENT Consult: No Notified: Yes Date Notified: 05/14/23 Time Notified: 22:52 Method of Notification: Text 05/15/23 12:12 Consult: Cardiology Routine Consulting Provider: Boaz Chan Reason for Consult: bradycardia , pauses > 3s EMERGENT Consult: No Notified: Yes Date Notified: 05/15/23 Time Notified: 12:12 Method of Notification: Text Reason For Visit: SYMPTOMATIC ANEMIA, ?GI BLEED, HYPERKALEMIA Diagnosis Discharge Diagnosis (1) Acute hyperkalemia: Status: Acute Code(s): E87.5 - Hyperkalemia Plan: resolved Admission potassium 6.4, not noted to be hemolyzed, in the ED. Patient was given hyperkalemia cocktail and Kayexalate. Repeat potassium 5.1 with slight hemolysis. 05/16: Repeat potassium is normal at 4.1. (2) Symptomatic anemia: Status: Acute Code(s): D64.9 - Anemia, unspecified Plan: Concern for Acute GI bleed with acute symptomatic Anemia on chronic normocytic anemia/iron deficiency anemia with associated Hypotension: Admission Hgb 7.1 which is similar to recent discharge but significant hypotension upon initial presentation. Patient admitted in PCU. 2 units of PRBC transfusion last hemog lobin 9.0. GI consulted. Serum iron low, TIBC normal, iron saturation 9.7% and ferritin 113. Overall suggestive of mixed, chronic iron deficiency anemia and anemia of chronic disease Patient on pantoprazole 40 mg IV twice daily. 05/16: Hemoglobin 8.3. Platelet count 225,000. Seen by electrician manager. Plan for EGD tomorrow AM. Continue Protonix. Possible colonoscopy as an outpatient as it seems patient is high risk for colonoscopy and prolonged ischemia due to severe bradycardia with pauses and bifascicular block. (3) Duodenal ulcer: Status: Acute Code(s): K26.9 - Duodenal ulcer, unspecified as acute or chronic, without hemorrhage or perforation Plan: PPI source of anemia (4) Left knee pain: Status: Acute Code(s): M25.562 - Pain in left knee Qualifiers: Chronicity: chronic Qualified Code(s): M25.562 - Pain in left knee; G89.29 - Other chronic pain Plan: has been able to walk on it, but limited due to pain. suspect OA. pain control Plan Chronic conditions: * Chronic A-fib with severe bradycardia, missed heartbeat and pauses: On equipment installer patient heart rate in the morning was 39/min with sinus pauses about 3 seconds. Gambling Floor Supervisor consulted and discussed with Dr. Chan. Most likely due to atenolol 25 mg twice daily which is on hold since admission. Eliquis on hold because of GI bleed most recent heart rate 45/min. Twelve-lead EKG was reviewed yesterday. Heart rate 37 bpm, LA D low voltage QRS, RBBB, LAFB suggestive of bifascicular block. 05/16:Discussed with the player development manager. Continue to hold beta-mendoza. 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 * Chronic Kidney Disease Stage IIIb likely secondary to underlying hypertensive and diabetic disease history: Admission BUN/Cr 80/1.59, baseline renal function more recently 1.3-1.4, had been up to 1.8 during prior presentation but improved, continue to trend. 05/16: BUNs/creatinine 56/1.15, estimated creatinine clearance about 30 mill per minute. * Dementia, unclear type with unclear behavioral disturbance history: We will continue patient home Aricept, complicates presentation, PT/OT/case management consulted for discharge planning, preferentially skilled placement given unsafe for any return to home concept without caregiver. * History CVA/CVD: Holding antiplatelet and anticoagulation given acute presentation, given hypotension also holding HTN regimen, continue home statin regimen. * Hypertension: Given hypotensive presentation holding home regimen, add back once appropriate. * Hyperlipidemia: We will continue patient home statin therapy. * Diabetes mellitus type II: Hold oral home regimen, will continue patient home insulin regimen long-acting however if BS trending low would administer 1/2 dose or hold while NPO, maintain on q 6 hour accu checks w/ ISS. * Obesity: Weight loss and lifestyle changes encouraged. * Abnormal TSH: TSH was 9.09 during previous hospitalization. FT4 1.08 DVT prophylaxis: SCDs, d/c her anticoagulant given acute presentation as noted. CODE status: Patient does not have HCPOA or LW in place but her son is her caregiver normally; however, he himself was recently hospitalized. Full Code. Disposition: back to [place] pending insurance authorization. Expressed concern about pt going back home with her son, Julio, with her other son. Julio unable to adequately care for them both. Medications at Discharge Home Medications atorvastatin 40 mg tablet 40 mg PO QDAY 12/01/17 donepezil 5 mg tablet 5 mg PO QHS 12/01/17 clopidogrel 75 mg tablet 75 mg PO QDAY 01/14/18 insulin glargine 100 unit/mL (3 mL) subcutaneous pen (Lantus Solostar U-100 Insulin) 18 unit subcut DIRECTED diabetes 08/21/20 apixaban 5 mg tablet (Eliquis) 2.5 mg (1/2 x 5 mg) PO BID 30 days #30 tabs 05/10/23 ferrous sulfate 325 mg (65 mg iron) tablet (FeroSul) 325 mg PO DAILY@1200 30 days #0 tabs 05/10/23 insulin lispro 100 unit/mL subcutaneous pen (Humalog KwikPen (U-100) Insulin) See Protocol subcut TIDAC 30 days #0 mL 05/10/23 nutrition tx glu intol,lac-free,soy-fiber 0.06 gram-1.2 kcal/mL liquid (Glucerna 1.2 Davie) 120 ml PO TIDCM 30 days #0 mL 05/10/23 nystatin 100,000 unit/gram topical powder (Nyamyc) 1 applic topical BID 30 days #0 grams 05/10/23 acetaminophen 325 mg tablet 650 mg (2 x 325 mg) PO Q4H PRN PRN Fever, pain 1- 07/27 #0 tabs 05/18/23 melatonin 3 mg tablet 3 mg PO QHS PRN PRN Insomnia #0 tabs 05/18/23 pantoprazole 40 mg tablet,delayed release (Protonix) 40 mg PO BID #60 tabs 05/18/23 Hospital Course Operations None Procedures EGD Summary of Care Provided Minutes Spent on Discharge: 26 Weight / BMI Weight Weight: 95 kg Body Mass Index (BMI) 40.8 ABG / Lab / Microbiology Data 05/18/23 05:18 05/18/23 05:18 Laboratory: Laboratory Results - last 24 hr 05/20/23 11:22: POC Glucose 128 H 05/20/23 15:56: POC Glucose 128 H 05/20/23 20:47: POC Glucose 129 H 05/21/23 06:31: POC Glucose 101 Meaningful Use Info Meaningful Use Diagnoses (Choose all that apply): None applicable Discharge Plan Admission Admit Date/Time: 05/14/23 22:49 Primary Reason for Your Visit: Gi bleed Attending Provider: Milad Silva Primary Care Provider: Namita Hassan Consulting Providers: Shelby Wallace; Boaz Chan; Arnaldo Gudino Discharge Orders/Prescriptions Prescriptions: New acetaminophen 325 mg Tablet 650 mg PO Q4H PRN PRN (Reason: Fever, pain -07/27) Qty: 0 0RF melatonin 3 mg Tablet 3 mg PO QHS PRN PRN (Reason: Insomnia) Qty: 0 0RF pantoprazole [Protonix] 40 mg tablet,delayed release (DR/EC) 40 mg PO BID Qty: 60 0RF Continued atorvastatin 40 mg tablet 40 mg PO QDAY donepezil 5 mg tablet 5 mg PO QHS insulin glargine [Lantus Solostar U-100 Insulin] 100 unit/mL (3 mL) insulin pen 18 unit SC DIRECTED Patient Comments: 18 U at bedtime per ecf list nystatin [Nyamyc] 100,000 unit/gram Powder 1 applic topical BID 30 Days Qty: 0 0RF Protocol: *Topical Application Instructions APPLICATION INSTRUCTIONS: apply to affected area Rx Instructions: Continue application until intertrigo resolved. insulin lispro [Humalog KwikPen Insulin] 100 unit/mL Insulin Pen See Protocol subcut TIDAC 30 Days Qty: 0 0RF Protocol: 3. Sliding Scale Insulin Med Dosing Condition: 150-189 mg/dl = 1 unit Condition: 190-229 mg/dl = 2 units Condition: 230-269 mg/dl = 3 units Condition: 270-309 mg/dl = 4 units Condition: 310-349 mg/dl = 5 units Condition: 350-399 mg/dl = 6 units Condition: 400-449 mg/dl = 7 units Condition: Greater than 449 call physician Protocol Text: - Use for Total Daily Dose of Insulin 37-55 units - Obsese, infected, or steroid patients MEDIUM DOSING ALGORITHIM Rx Instructions: Sliding Scale Insulin Medium Dosin-189 BS=1 u, 190-229 BS=2 u, 230-269 BS=3 u, 270-309 BS=4 u, 310-349 BS=5 u, 350-399 BS=6 u, 400 BS= 7 u Glucerna 1.2 Davie 0.06-1.2 gram-kcal/mL Liquid 120 ml PO TIDCM 30 Days Qty: 0 0RF ferrous sulfate [FeroSul] 325 mg (65 mg iron) Tablet 325 mg PO DAILY@1200 30 Days Qty: 0 0RF Held clopidogrel 75 mg tablet 75 mg PO QDAY Hold Instructions: Resume on 05/24/23. Eliquis 5 mg Tablet 2.5 mg PO BID 30 Days Qty: 30 0RF Hold Instructions: Resume on 05/24/23. Discontinued hydrochlorothiazide 25 mg tablet 25 mg PO QAM Hold Instructions: Resume on 05/17/23. May reassess renal function and BP and if appropriate may consider adding back otherwise may discontinue. furosemide 20 mg tablet 20 mg PO QDAY Hold Instructions: Resume on 05/17/23. May reassess renal function and BP and if appropriate may consider adding back otherwise may discontinue. atenolol 25 mg tablet 25 mg PO BID enalapril maleate 10 mg tablet 10 mg PO .COMPLEX Patient Comments: 10 mg PO 2 tablets every morning and 1 tablet in the evening Rx Instructions: 10 mg PO 2 tablets every morning and 1 tablet in the evening nitroglycerin 0.4 mg tablet, sublingual 0.4 mg SUBLINGUAL Q5M PRN (Reason: chest pain) Qty: 25 3RF pioglitazone 30 mg tablet 30 mg PO DAILY Referrals / Follow Up: [facility] [Provider Group] - Within 3 Months [facility] [Provider Group] - Within 1 Month Namita Hassan MD [Primary Care Provider] - Within 2 Weeks Disposition Disposition (needs filled in before D/C Order can be placed): [facility] Charges/Coding Visit Charges Inpatient E&M: 62496 Disch Hosp
--- NOTE | 2023-05-21 11:08 | NURSING ---
report called to Pema ABDULLAHI at [facility]
== END 2023-05-21 11:40 | DRG 378 ==
LOC: ED 22:26 → PCU 23:29
PROVIDERS: Anesthesiology; Internal Medicine; Internal Medicine Gastroenterology; Admitting Provider Family Medicine; Emergency Provider Emergency Medicine; PCP Internal Medicine
PROC: 0DJ08ZZ Inspection of Upper Intestinal Tract, Via Natural or Artificial Opening Endoscopic (ICD-10-PCS; CPT 43235; principal; 2023-05-17 11:40)
DX: K26.4 Chronic or unspecified duodenal ulcer with hemorrhage (principal); E87.1 Hypo-osmolality and hyponatremia; Z68.41 Body mass index [BMI] 40.0-44.9, adult; I45.2 Bifascicular block; D62 Acute posthemorrhagic anemia; D63.1 Anemia in chronic kidney disease; I95.89 Other hypotension; E11.22 Type 2 diabetes mellitus with diabetic chronic kidney disease; E11.42 Type 2 diabetes mellitus with diabetic polyneuropathy; I48.0 Paroxysmal atrial fibrillation; F03.90 Unspecified dementia, unspecified severity, without behavioral disturbance, psychotic disturbance, mood disturbance, and anxiety; N18.32 Chronic kidney disease, stage 3b; Z79.4 Long term (current) use of insulin; I12.9 Hypertensive chronic kidney disease with stage 1 through stage 4 chronic kidney disease, or unspecified chronic kidney disease; I25.10 Atherosclerotic heart disease of native coronary artery without angina pectoris; E78.5 Hyperlipidemia, unspecified; E87.5 Hyperkalemia; K44.9 Diaphragmatic hernia without obstruction or gangrene; K22.70 Barrett's esophagus without dysplasia; M17.12 Unilateral primary osteoarthritis, left knee; I25.2 Old myocardial infarction; R62.7 Adult failure to thrive; G89.29 Other chronic pain; K29.51 Unspecified chronic gastritis with bleeding; K29.81 Duodenitis with bleeding; E66.9 Obesity, unspecified; R53.81 Other malaise; R94.6 Abnormal results of thyroid function studies; Z99.3 Dependence on wheelchair; Z79.01 Long term (current) use of anticoagulants; Z79.02 Long term (current) use of antithrombotics/antiplatelets; Z79.899 Other long term (current) drug therapy; Z86.73 Personal history of transient ischemic attack (TIA), and cerebral infarction without residual deficits
CPT/HCPCS: 36415; 80048; 80053; 81002; 82728; 82962; 83036; 83540; 83550; 83605; 84439; 84443; 85025; 85610; 85730; 86850; 86900; 86901; 86920; 88305; 88341; 88342; 93005; 94668; 97110; 97116; 97162; 97166; 97530; 97535; 99285; J7030; J7040; J7050; J7120; P9016; A4216; J2405

== ENCOUNTER 2023-05-27 16:39 | Emergency (ER) | payer MEDICARE, SELFPAY ==
[2023-05-27 16:41] VITALS: BP 184/72; PULSE 69; RESP 20; TEMP 36.9; O2SAT 98; BMI 42.0
--- NOTE | 2023-05-27 16:55 | EX.ED.DYSGE1 ---
HPI History of Present Illness Chief Complaint: Dizziness Detail of Chief Complaint: Dizziness which patient describes as the room spinning Informant: patient Onset/Context/Timing Onset: Yesterday (Judith) Context: Sudden Onset Timing: Intermittent (A couple of minutes) Quality: Room spinning Location: [facility] Current Severity: Gone Maximum Severity: Moderate Worsened by: Movement Relieved by: Remaining still Associated Symptoms Associated Symptoms: None Narrative Narrative: Patient is a 77-year-old woman who was sent to the emergency department for symptomatic anemia. Review of prior records indicates that patient's hemoglobin was 6.7 on May 14. Hemoglobin yesterday was 7.7. Patient is not describing dyspnea on exertion. Patient is not describing lightheadedness with standing. She described a spinning sensation which resolved when she remains still. This occurred yesterday. There was no associated blurred vision, change in vision or double vision. There is no note nor does patient state that there was trouble with speech or swallowing. She denied paresthesia, anesthesia or motor weakness of upper or lower extremity. She denied nausea or vomiting. She denied chest discomfort. She denied change in color of her stool. She specifically denies having black or maroon-colored stool. Paperwork that accompanied her indicates that patient is set up for transfusion of 2 units of blood at the hospital. Prior similar symptoms: Yes (Last month) [facility] Medical History Afib Anemia Atherosclerotic heart disease of [place] coronary artery without angina pectoris CKD (chronic kidney disease), stage III CVA (cerebral vascular accident) Dementia Essential hypertension GERD (gastroesophageal reflux disease) Inability to walk Nonrheumatic aortic (valve) insufficiency Old myocardial infarction PAF (paroxysmal atrial fibrillation) Polyneuropathy Type 2 diabetes mellitus Home Medications atorvastatin 40 mg tablet 40 mg PO QDAY 12/01/17 [History Last Taken Unknown] donepezil 5 mg tablet 5 mg PO QHS 12/01/17 [History Last Taken Unknown] clopidogrel 75 mg tablet 75 mg PO QDAY 01/14/18 [History Last Taken Unknown] insulin glargine 100 unit/mL (3 mL) subcutaneous pen (Lantus Solostar U-100 Insulin) 18 unit subcut DIRECTED diabetes 08/21/20 [History Last Taken Unknown] apixaban 5 mg tablet (Eliquis) 2.5 mg (1/2 x 5 mg) PO BID 30 days #30 tabs 05/10/23 [Rx Last Taken Unknown] ferrous sulfate 325 mg (65 mg iron) tablet (FeroSul) 325 mg PO DAILY@1200 30 days #0 tabs 05/10/23 [Rx Last Taken Unknown] insulin lispro 100 unit/mL subcutaneous pen (Humalog KwikPen (U-100) Insulin) See Protocol subcut TIDAC 30 days #0 mL 05/10/23 [Rx Last Taken Unknown] nutrition tx glu intol,lac-free,soy-fiber 0.06 gram-1.2 kcal/mL liquid (Glucerna 1.2 [place]) 120 ml PO TIDCM 30 days #0 mL 05/10/23 [Rx Last Taken Unknown] nystatin 100,000 unit/gram topical powder (Nyamyc) 1 applic topical BID 30 days #0 grams 05/10/23 [Rx Last Taken Unknown] acetaminophen 325 mg tablet 650 mg (2 x 325 mg) PO Q4H PRN PRN Fever, pain 1-07/27 #0 tabs 05/18/23 [Rx Last Taken Unknown] melatonin 3 mg tablet 3 mg PO QHS PRN PRN Insomnia #0 tabs 05/18/23 [Rx Last Taken Unknown] pantoprazole 40 mg tablet,delayed release (Protonix) 40 mg PO BID #60 tabs 05/18/23 [Rx Last Taken Unknown] Allergy/AdvReac Type Severity Reaction Status Date / Time No Known Allergies Allergy Verified 05/14/23 20:29 Family History Mother Diabetes Son Heart disease Myocardial infarction Daughter Diabetes Daughter Diabetes Surgical History History of breast biopsy History of cardiac catheterization History of cholecystectomy History of colonoscopy (~2010) History of esophagogastroduodenoscopy (EGD) (~2001) Social History Smoking Status: Never smoker alcohol intake: never substance use type: does not use caffeine: Yes Type: coffee Number of servings: 4 what type of physical activity do you participate in: none seatbelt use: always do you feel safe at home: Yes ROS ROS ED Constitutional Constitutional ED: Denies chills, fever(s), subjective, sweats or weight loss Eyes Eyes: Denies blurry vision, change in vision or diplopia ENT ENT ED: Denies ear pain, rhinorrhea or sore throat Cardiovascular Cardiovascular: Reports other Details: Denies orthostatic symptoms. ; Denies chest pain, orthopnea, palpitations, paroxysmal nocturnal dyspnea or racing heartbeat Respiratory/Chest Respiratory/Chest: Denies cough, dyspnea, dyspnea on exertion, orthopnea or paroxysmal nocturnal dyspnea Gastrointestinal Gastrointestinal: Denies abdominal pain, melena, nausea or vomiting Genitourinary Genitourinary ED: Denies dysuria, hematuria or urinary frequency Musculoskeletal Musculoskeletal: Denies arthralgias, back pain, myalgias or neck pain Integumentary Denies rash Neurologic Neurologic: Denies headache(s), paresthesias or weakness Endocrine Endocrinology: Denies cold intolerance or heat intolerance Hematologic/Lymphatic Hematologic/Lymphatic: Reports anemia and easy bruising; Denies easy bleeding EXAM Physical Exam Const Vital Signs: 05/27/23 16:41 05/27/23 16:45 05/27/23 17:02 Temperature 98.5 F Temperature Source Oral Pulse Rate 69 Pulse Rate [Lying] 70 Pulse Rate [Sitting (for 1 minute prior to obtaining)] 70 Pulse Rate [Standing (for 1 minute prior to obtaining)] 85 Respiratory Rate 20 H Respiratory Effort Normal Respiratory Pattern Normal Blood Pressure 184/72 H Blood Pressure [Lying] 191/60 H Blood Pressure [Sitting (for 1 minute prior to obtaining)] 180/83 H Blood Pressure [Standing (for 1 minute prior to obtaining)] 187/88 H Blood Pressure Mean 109 Blood Pressure Mean [Lying] 103 Blood Pressure Mean [Sitting (for 1 minute prior to obtaining)] 115 Blood Pressure Mean [Standing (for 1 minute prior to obtaining)] 121 Pulse Ox 98 Oxygen Delivery Method Room Air Positive well nourished, well developed and obese General Appearance ED: well developed, NAD and pallor; Negative for cyanotic or diaphoretic Nutritional Appearance: obese HEENT Reports dry mucous membranes HEENT Narrative: Head is normocephalic and atraumatic. Ears are normal. External auditory canal is normal. TM is normal. Nares are patent. Posterior pharynx without erythema or exudate. There is no deviation of the tongue with protrusion. Mouth ED: Yes dry mucous membranes Mouth: dry mucous membranes Eyes PERRL and EOMs intact bilaterally General Eye ED: Yes scleral icterus; Negative for pale conjunctiva Neck no lymphadenopathy, supple and no JVD Chest Wall inspection of chest normal and palpation of chest normal Resp normal respiratory effort and clear to auscultation bilaterally Cardio regular rate and no murmurs Rhythm: abnormal rhythm irregularly irregular GI normal to inspection, nondistended, normoactive bowel sounds, non-tender, non-distended and no masses; Negative for hepatosplenomegaly Auscultation: normoactive bowel sounds Palpation: soft Back/Spine no CVA tenderness Back/Spine Narrative: Inspection of back is normal. Extremity normal to inspection Neuro oriented x3, CN's II-XII intact bilaterally and no sensory deficits noted Neuro Narrative: There is no dysmetria. The eye askew test is negative. The hints test is negative. Hang-Hallpike maneuver was negative. As previously documented symptoms occurred yesterday and she is presently asymptomatic. Sensorium / Orientation: alert Psych mental status grossly normal Skin no rashes or lesions noted and no wounds Skin Narrative: There is erythema to the creases of the palm. General Skin Exam: pallor; Negative for jaundice MDM MDM MDM Narrative Medical decision making narrative: Since patient had blood work yesterday and patient is not symptomatic at this time CBC was not repeated. BMP reveals an elevated BUN to creatinine ratio. BUN is 24 with a creatinine of 0.9. Albumin is slightly decreased, 3.2. Will obtain orthostatic vital signs. If patient has been typed and crossed and blood is available will administer 1 unit of blood. Since she had no cardiac symptoms EKG was not obtained. Since there is no respiratory symptoms chest x-ray was not obtained. Furthermore she has no abnormal oscillatory findings. Treatment and Re-Evaluation :: Since nurse reported she had dizziness when she stood up Hang-Hallpike maneuver was repeated. Hang-Hallpike maneuver is negative. When I had the patient's stand up she states she felt woozy dizzy , which she defined as the room spinning. This was transient. I suspect patient has autonomic dysfunction since she has had diabetes for 25 years. She does not have symptomatic anemia and does not meet criteria for transfusion since her hemoglobin is above 7. Since she was sent in by Dr. Altamirano and on the note there was a notation to set up patient for transfusion of 2 units of packed red blood cells. Since patient does not meet criteria she was not typed and screened or typed and crossed. Spoke with Dr. Whiting on-call for Dr. Deric Altamirano. She will inform him that patient did not receive blood because she does not meet criteria. Discharge Plan Triage Chief Complaint: Dizziness ED Provider: Joao Anaya Dx/Rx/DC Orders Clinical Impression: Autonomic dysfunction with type 2 diabetes mellitus, Essential hypertension, Hypercholesterolemia, Renal insufficiency, Nonrheumatic aortic (valve) insufficiency, Anemia of chronic illness Instructions: ED Dizziness, Uncertain Cause Prescriptions: No Action atorvastatin 40 mg tablet 40 mg PO QDAY donepezil 5 mg tablet 5 mg PO QHS clopidogrel 75 mg tablet 75 mg PO QDAY Hold Instructions: Resume on 05/24/23. insulin glargine [Lantus Solostar U-100 Insulin] 100 unit/mL (3 mL) insulin pen 18 unit SC DIRECTED Patient Comments: 18 U at bedtime per ecf list nystatin [Nyamyc] 100,000 unit/gram Powder 1 applic topical BID 30 Days Qty: 0 0RF Protocol: *Topical Application Instructions APPLICATION INSTRUCTIONS: apply to affected area Rx Instructions: Continue application until intertrigo resolved. insulin lispro [Humalog KwikPen Insulin] 100 unit/mL Insulin Pen See Protocol subcut TIDAC 30 Days Qty: 0 0RF Protocol: 3. Sliding Scale Insulin Med Dosing Condition: 150-189 mg/dl = 1 unit Condition: 190-229 mg/dl = 2 units Condition: 230-269 mg/dl = 3 units Condition: 270-309 mg/dl = 4 units Condition: 310-349 mg/dl = 5 units Condition: 350-399 mg/dl = 6 units Condition: 400-449 mg/dl = 7 units Condition: Greater than 449 call physician Protocol Text: - Use for Total Daily Dose of Insulin 37-55 units - Obsese, infected, or steroid patients MEDIUM DOSING ALGORITHIM Rx Instructions: Sliding Scale Insulin Medium Dosin-189 BS=1 u, 190-229 BS=2 u, 230-269 BS=3 u, 270-309 BS=4 u, 310-349 BS=5 u, 350-399 BS=6 u, 400 BS= 7 u Glucerna 1.2 [place] 0.06-1.2 gram-kcal/mL Liquid 120 ml PO TIDCM 30 Days Qty: 0 0RF ferrous sulfate [FeroSul] 325 mg (65 mg iron) Tablet 325 mg PO DAILY@1200 30 Days Qty: 0 0RF Eliquis 5 mg Tablet 2.5 mg PO BID 30 Days Qty: 30 0RF Hold Instructions: Resume on 05/24/23. acetaminophen 325 mg Tablet 650 mg PO Q4H PRN PRN (Reason: Fever, pain 1-07/27) Qty: 0 0RF melatonin 3 mg Tablet 3 mg PO QHS PRN PRN (Reason: Insomnia) Qty: 0 0RF pantoprazole [Protonix] 40 mg tablet,delayed release (DR/EC) 40 mg PO BID Qty: 60 0RF Primary Care Provider: Namita Hassan Referrals: Namita Hassan MD [Primary Care Provider] - Disposition Disposition: Home, Self Care
[2023-05-27 17:02] VITALS: BP 180/83; BP 187/88; BP 191/60; PULSE 70; PULSE 85
[2023-05-27 19:26] VITALS: BP 181/94; PULSE 81; RESP 19; O2SAT 94
--- NOTE | 2023-05-27 19:37 | ED.RN ---
THIS [employer] CALLED PHYSICIANS GAVE ETA 0230AM. REQUESTED OUTSOURCE, WAITING CALL BACK.
[2023-05-27 22:35] VITALS: BP 181/94; PULSE 69; RESP 20; O2SAT 100
== END 2023-05-27 22:36 | disposition home or self-care (01) ==
PROVIDERS: Emergency Provider Emergency Medicine; PCP Internal Medicine; Visit Provider Emergency Medicine
DX: E11.22 Type 2 diabetes mellitus with diabetic chronic kidney disease (principal); E11.42 Type 2 diabetes mellitus with diabetic polyneuropathy; I12.9 Hypertensive chronic kidney disease with stage 1 through stage 4 chronic kidney disease, or unspecified chronic kidney disease; E78.00 Pure hypercholesterolemia, unspecified; I25.10 Atherosclerotic heart disease of native coronary artery without angina pectoris; D63.1 Anemia in chronic kidney disease; I35.1 Nonrheumatic aortic (valve) insufficiency; I25.2 Old myocardial infarction; N28.9 Disorder of kidney and ureter, unspecified; E66.9 Obesity, unspecified; Z86.73 Personal history of transient ischemic attack (TIA), and cerebral infarction without residual deficits
CPT/HCPCS: 99284; A4216

== ENCOUNTER 2023-06-23 21:18 | Inpatient (IN) | payer MEDICARE, SELFPAY ==
[2023-06-23 21:20] VITALS: BP 190/74; PULSE 55; RESP 20; TEMP 36.1; O2SAT 95
[2023-06-23 22:38] VITALS: BMI 38.7
[2023-06-23 22:43] VITALS: PULSE 50; RESP 17; O2SAT 94
--- NOTE | 2023-06-23 22:44 | EKG12_ITS ---
Test Reason : WEAKNESS Blood Pressure : / mmHG Vent. Rate : 050 BPM Atrial Rate : 000 BPM P-R Int : 000 ms QRS Dur : 140 ms QT Int : 506 ms P-R-T Axes : 000 -27 -13 degrees QTc Int : 461 ms Atrial fibrillation with slow ventricular response Right bundle branch block Abnormal ECG Confirmed by JAZZY ZAMORA, JUDI ([id number]), commissioning editor JAYSON GUERIN ([id number]) on 06/25/2023 1:54:31 PM Referred By: Confirmed By:JUDI PURCELL MD
--- NOTE | 2023-06-23 22:45 | EX.ED.DYSGE1 ---
HPI History of Present Illness Chief Complaint: General Illness Detail of Chief Complaint: Not feeling well Informant: patient Narrative Narrative: Patient presents to the emergency department complaint not feeling well. Patient states that she is not felt well today and thinks that maybe she needs a transfusion. Patient thinks her last transfusion was maybe 3 months ago. She is on a blood thinner for history of A-fib. She at times has had some black stool. She was in a senior care until about a week ago and her son takes care of her at home currently. Patient had developed a blister on the top of her left foot and has not been ambulating. She denies any chest pain. She describes intermittent shortness of breath. She describes some dysuria and some frequency. She denies fevers. Patient denies cough or sore throat but sometimes feels that she has a hard time swallowing. [facility] Medical History (Updated 06/24/23 @ 01:[address] Shelby Wallace MD) Afib Anemia Atherosclerotic heart disease of [place] coronary artery without angina pectoris CKD (chronic kidney disease), stage III CVA (cerebral vascular accident) Dementia Essential hypertension GERD (gastroesophageal reflux disease) History of GI bleed Inability to walk Nonrheumatic aortic (valve) insufficiency Old myocardial infarction PAF (paroxysmal atrial fibrillation) Polyneuropathy Type 2 diabetes mellitus Home Medications atorvastatin 40 mg tablet 40 mg PO QDAY 12/01/17 [History Last Taken Unknown] donepezil 5 mg tablet 5 mg PO QHS 12/01/17 [History Last Taken Unknown] clopidogrel 75 mg tablet 75 mg PO QDAY 01/14/18 [History Last Taken Unknown] insulin glargine 100 unit/mL (3 mL) subcutaneous pen (Lantus Solostar U-100 Insulin) 20 unit subcut DAILY diabetes 08/21/20 [History Last Taken Unknown] apixaban 5 mg tablet (Eliquis) 2.5 mg (1/2 x 5 mg) PO BID 30 days #30 tabs 05/10/23 [Rx Last Taken Unknown] nystatin 100,000 unit/gram topical powder (Nyamyc) 1 applic topical BID 30 days #0 grams 05/10/23 [Rx Last Taken Unknown] acetaminophen 325 mg tablet 650 mg (2 x 325 mg) PO Q4H PRN PRN Fever, pain 1-07/27 #0 tabs 05/18/23 [Rx Last Taken Unknown] pantoprazole 40 mg tablet,delayed release (Protonix) 40 mg PO BID #60 tabs 05/18/23 [Rx Last Taken Unknown] atenolol 25 mg tablet 25 mg PO Q12H 06/24/23 [History Last Taken Unknown] enalapril maleate 10 mg tablet 10 mg PO Q12H 06/24/23 [History Last Taken Unknown] furosemide 20 mg tablet 20 mg PO DAILY 06/24/23 [History Last Taken Unknown] hydrochlorothiazide 25 mg tablet 25 mg PO DAILY 06/24/23 [History Last Taken Unknown] Allergy/AdvReac Type Severity Reaction Status Date / Time No Known Allergies Allergy Verified 06/23/23 21:23 Family History Mother Diabetes Son Heart disease Myocardial infarction Daughter Diabetes Daughter Diabetes Surgical History History of breast biopsy History of cardiac catheterization History of cholecystectomy History of colonoscopy (~2010) History of esophagogastroduodenoscopy (EGD) (~2001) Social History household members: children housing: house Smoking Status: Never smoker alcohol intake: never substance use type: does not use caffeine: Yes Type: coffee Number of servings: 4 what type of physical activity do you participate in: none seatbelt use: always do you feel safe at home: Yes ROS ROS ED Review of Systems ROS Unobtainable: other Constitutional Constitutional ED: Reports lethargy; Denies chills, fever(s), sweats or weight loss Eyes Eyes: Denies blurry vision, change in vision or diplopia ENT ENT ED: Reports other Details: Difficulty swallowing ; Denies rhinorrhea or sore throat Cardiovascular Cardiovascular: Denies chest pain, orthopnea or racing heartbeat Respiratory/Chest Respiratory/Chest: Reports dyspnea and dyspnea on exertion; Denies cough, orthopnea or sputum Gastrointestinal Gastrointestinal: Reports melena; Denies abdominal pain, diarrhea, nausea or vomiting Genitourinary Genitourinary ED: Denies dysuria, hematuria or urinary frequency Musculoskeletal Musculoskeletal: Reports other Details: Generalized weakness ; Denies arthralgias, back pain, myalgias or neck pain Integumentary Denies abscess, Abrasions or rash Neurologic Neurologic: Denies headache(s) or weakness Psychiatric Psychiatric: Denies anxiety, depression or suicidal thoughts Endocrine Endocrinology: Denies polydipsia, polyphagia or polyuria Hematologic/Lymphatic Hematologic/Lymphatic: Denies easy bleeding, easy bruising or lymphadenopathy Allergic/Immunologic Allergic/Immunologic ED: Denies mouth swelling, tongue swelling or urticaria EXAM Physical Exam Const Vital Signs: 06/23/23 21:20 06/23/23 22:38 06/23/23 22:43 Temperature 96.9 F L Temperature Source Temporal Pulse Rate 55 L 50 L Respiratory Rate 20 H 17 Respiratory Effort Short of Breath Respiratory Pattern Normal Blood Pressure 190/74 H Blood Pressure Mean 112 Pulse Ox 95 94 Oxygen Delivery Method Room Air Room Air Positive well nourished and well developed General Appearance ED: well developed and NAD HEENT Reports TM's clear and moist mucous membranes normocephalic and atraumatic; Negative for trauma or tenderness Tympanic Membrane ED: Yes TM's clear Eyes PERRL and EOMs intact bilaterally General Eye ED: Negative for pale conjunctiva or scleral icterus Neck no lymphadenopathy, supple and no JVD General: Negative for tenderness Chest Wall inspection of chest normal and palpation of chest normal Chest: Negative for tenderness Resp normal respiratory effort and clear to auscultation bilaterally Effort and Inspection: Negative for respiratory distress or pain with movement Auscultation: Negative for rhonchi, wheezes or diminished lung sounds Cardio S1 normal heart sound, S2 normal heart sound and no murmurs; Negative for regular rate or regular rhythm Rate: bradycardia Rhythm: abnormal rhythm Peripheral Pulses: pulses 2+ throughout GI normal to inspection, nondistended, normoactive bowel sounds, soft to palpation, non-tender, non-distended and no masses Back/Spine no CVA tenderness and no thoracic nor lumbar tenderness Extremity normal to inspection General Extremety ED: Negative for edema General Extremity: Negative for edema Neuro oriented x3, CN's II-XII intact bilaterally, no sensory deficits noted and gait normal Sensorium / Orientation: awake, alert, oriented to person, oriented to place and oriented to time Motor Exam: strength 5/5 throughout and strength abnormal Psych mental status grossly normal Skin no rashes or lesions noted and no wounds MDM MDM MDM Narrative Medical decision making narrative: Patient presents with complaint of generalized weakness and not feeling well. In the differential would be cardiac etiology versus infectious etiology versus other. IV line established on arrival. EKG obtained showed atrial fibrillation with a rate of 50 bpm with right bundle branch block. CBC with differential showed a white count of 8.2 and hemoglobin of 8.8 with platelet count of 349. Chemistries unremarkable other than a depressed potassium of 3.1. Glucose was depressed at 34. Patient was given a meal tray as she was mentating normally. Repeat blood glucose was 25. I did order an amp of D50. Patient will be given more to eat. Urinalysis ordered and pending. Case will be discussed with hospitalist to evaluate patient for admission for generalized weakness and hypoglycemia. Patient states he only takes insulin once a day and took it this morning. Patient also bradycardic with heart rates in the 40s and 50s in the department. Lab Data Attestation: I reviewed the patient's lab results. Labs: Laboratory Results - last 24 hr 06/23/23 06/24/23 06/24/23 23:03 00:16 00:47 WBC 8.2 RBC 3.38 L Hgb 8.8 L Hct 29.3 L MCV 86.7 MCH 26.0 L MCHC 30.0 L RDW Std Deviation 78.3 H RDW Coeff of Deep 25.3 H Plt Count 349 MPV 9.6 Immature Gran % (Auto) 0.500 Neut % (Auto) 75.4 H Lymph % (Auto) 10.8 L [place] % (Auto) 9.5 Eos % (Auto) 3.3 Baso % (Auto) 0.5 Absolute Neuts (auto) 6.2 Absolute Lymphs (auto) 0.88 Nucleated RBC % 0 Polychromasia RARE Hypochromasia 1+ Anisocytosis 2+ Acanthocytes (Spur) 1+ Sodium 139 Potassium 3.1 L Chloride 102 Carbon Dioxide 32.0 Anion Gap 5 BUN 25 H Creatinine 1.05 H Estim Creat Clear Calc 32.23 Est GFR (MDRD) Af Amer 65 Est GFR (MDRD) Non-Af 54 L BUN/Creatinine Ratio 23.8 H Glucose 34 L* Calcium 9.8 Magnesium 2.3 Troponin I High Sens 30 Urine Color Urine Clarity Urine pH Ur Specific [place] Urine Protein Urine Glucose (UA) Urine Ketones Urine Occult Blood Urine Nitrite Urine Bilirubin Urine Urobilinogen Ur Leukocyte Esterase Urine RBC Urine WBC Ur Squamous Epith Cells Urine Bacteria Urine Mucus POC Glucose 25 L* 47 L 09/07/23 09/07/23 01:25 01:29 WBC RBC Hgb Hct MCV MCH MCHC RDW Std Deviation RDW Coeff of Deep Plt Count MPV Immature Gran % (Auto) Neut % (Auto) Lymph % (Auto) [place] % (Auto) Eos % (Auto) Baso % (Auto) Absolute Neuts (auto) Absolute Lymphs (auto) Nucleated RBC % Polychromasia Hypochromasia Anisocytosis Acanthocytes (Spur) Sodium Potassium Chloride Carbon Dioxide Anion Gap BUN Creatinine Estim Creat Clear Calc Est GFR (MDRD) Af Amer Est GFR (MDRD) Non-Af BUN/Creatinine Ratio Glucose Calcium Magnesium Troponin I High Sens Urine Color Yellow Urine Clarity Clear Urine pH 8.0 Ur Specific [place] 1.015 Urine Protein 30 H Urine Glucose (UA) Normal Urine Ketones Negative Urine Occult Blood Negative Urine Nitrite Positive H Urine Bilirubin Negative Urine Urobilinogen 4 H Ur Leukocyte Esterase 25 H Urine RBC 0-5 SEEN Urine WBC 0-5 SEEN Ur Squamous Epith Cells 0 SEEN Urine Bacteria 3+ Urine Mucus 0 SEEN POC Glucose 182 H Radiography Diagnostic Testing: Clinical Impression(s) from Imaging Studies Chest X-Ray 06/23/23 23:07 IMPRESSION: Central pulmonary vascular congestion. Electronically Signed: Dax Gaxoila MD at 23:35 EDT , 1 view chest x-ray obtained interpreted by myself as vascular congestion without evidence of infiltrate or pneumothorax or acute disease process otherwise. Radiology in agreement. EKG Initial EKG: Attestation: I personally reviewed and interpreted this EKG as follows: Comments: Atrial fibrillation with a rate of 50 bpm with right bundle branch block Discharge Plan Dx/Rx/DC Orders Clinical Impression: Bradycardia, Hypoglycemia, Weakness, Acute hypokalemia Disposition Disposition: Acute Care Hospital [facility] Discharge Date/Time: 06/24/23 02:18
[2023-06-23] MEDS: 0.9% Normal Saline 1,000 ML 150 ML IV (23:03)
--- NOTE | 2023-06-23 23:07 | RAD_ITS ---
EXAM: XR CHEST, 1 VIEW CLINICAL INDICATION: dyspnea TECHNIQUE: Frontal view of the chest. COMPARISON: Single view chest 01/20/2019 FINDINGS: LUNGS AND PLEURAL SPACES: Central pulmonary vascular congestion. No pneumothorax. No effusion. HEART: Mild enlargement of the cardiac silhouette. MEDIASTINUM: Central airways and mediastinal contour are unremarkable. BONES/JOINTS: Unremarkable. SOFT TISSUES: Unremarkable. RAD/Chest 1 View (Portable) IMPRESSION: Central pulmonary vascular congestion. Electronically Signed: Dax Gaxiola MD at 23:35 EDT ,
[2023-06-23 23:10] LABS: Absolute Lymphocyte Count 0.88 X10^3/uL (0.83-4.51); Absolute Neutrophil Count 6.2 X10^3/uL (2.0-7.7); Basophil# 0.04 X10^3/uL; Basophil% 0.5 % (0-1); Eosinophil# 0.27 X10^3/uL; Eosinophils% 3.3 % (0-5); Hematocrit 29.3 % (37-47); Hemoglobin 8.8 g/dL (12.0-15.0); Lymphocyte # 0.88 X10^3/ul (0.83-4.51); Lymphocyte % 10.8 % (19-41); Mean Corpuscular Volume 86.7 fL (81-99); Mean Platelet Vol. 9.6 fl (6.2-12.0); Monocyte# 0.78 X10^3/uL; Monocyte% 9.5 % (0-10); NRBC Flagged by Analyzer 0 % (0-5); Neutrophil # 6.17 X10^3/uL (2.7-7.7); Neutrophil % 75.4 % (47-70); POSITIVE MORPHOLOGY YES; Platelet Count 349 K/mm3 (150-450); RBC Distribution Width CV 25.3 % (11.6-14.6); RBC Distribution Width SD 78.3 fl (35.1-43.9); Red Blood Count 3.38 M/mm3 (4.2-5.4); White Blood Count 8.2 K/mm3 (4.4-11.0)
[2023-06-23 23:21] LABS: Differential Indicated SCAN CRITERIA MET
[2023-06-23 23:42] LABS: Anion Gap 5 (5-15); BUN 25 mg/dL (7-18); BUN/Creat Ratio 23.8 RATIO (10-20); Calcium,Total 9.8 mg/dL (8.5-10.1); Chloride 102 mmol/L (98-107); Creatinine, Serum 1.05 mg/dL (0.55-1.02); EST Glomerular Filtration Rate 54 mL/min (>60); Est Glom Filt Rate - Afr Amer 65 mL/min (>60); Estimated Creatinine Clearance 32.23 ml/min; Glucose 34 mg/dL (74-106); Potassium 3.1 mmol/L (3.5-5.1); Sodium Level 139 mmol/L (136-145); Troponin-I HS 30 pg/mL (3.0-54.0)
[2023-06-23 23:43] LABS: Acanthocytes 1+; Anisocytosis 2+; Hypochromasia 1+; Polychromasia RARE
[2023-06-24] VITALS (9 sets, daily range): BP systolic 125–184; BP diastolic 43–91; PULSE 50–97; RESP 16–19; TEMP 36.4–37.3; O2SAT 92–99; BMI 38.8; BMI 39.0
[2023-06-24 00:34] LABS: Bedside Glucose 25 mg/dL (74-106)
[2023-06-24] MEDS: Dextrose 50%-Water 25 GM/50 ML DISP.SYRIN IV (01:01)
[2023-06-24 01:06] LABS: Bedside Glucose 47 mg/dL (74-106)
--- NOTE | 2023-06-24 01:19 | HP.PCM.HOS_ITS ---
HPI - General General Date of Admission: 06/24/23 Date of Service: 06/24/23 Chief Complaint: Debility, adult FTT, low BS. HPI Narrative The patient is a 77 y/o F w/ PMHx: CKD stage IIIb, PAF, HTN, HLD, Dementia unclear type with unclear behavioral disturbance history, Diabetes mellitus type II, CKD stage IIIb, Chronic normocytic anemia/Fe deficiency anemia, Hx CVD, Chronic severe debility with wheelchair-bound status, 05/10/23 discharge f ollowing treatment and evaluation of PAF new onset initiated at that time on eliquis regimen with then re-admission 05/14/23 secondary to abdominal pain and anemia w/ 2 unit PRBC transfusion with evidence of chronic iron deficiency anemia/AOCD with acute GI bleed with noted EGD with segment of Munoz's esophagus which was biopsied, multiple oozing duodenal ulcers treated with monopolar probe with evidence of also chronic duodenitis with recommended continued PPI and possible future need for radiofrequency ablation in addition to episodes during admission of sinus pauses with bradycardia with cardiology consultation with eventual discontinuation of beta-mendoza therapy with eventual resumption at discharge of her Eliquis regimen as well as Plavix now presenting to the [facility] ED on 06/24/23 with general fatigue and malaise similar to when she had required blood transfusions previously with GI bleed reporting that she has black stools but she is also on chronic iron supplementation and [place] until approximately 1 week prior to transition to home with her son with recent stasis blister developed on her left foot with intermittent dyspnea, worse with exertion with mild orthopnea which she states is chronic and chronic lower extremity swelling as well as mild dysuria and frequency with no fevers or chills but given significant ongoing myriad of issues and inability to be cared for at home prompted ED evaluation. Work-up in the ED included T96.9, heart rate 55, BP 190/74, respiratory rate 17, 94% room air, CBC with WBC 8.2, hemoglobin 8.8, MCV 86.7, platelet 349 without marked shift, BMP with potassium 3.1, UN/creatinine 25/1.05, glucose 34, troponin 30, repeat POC blood sugar checks 47, chest x-ray with central pulmonary vascular congestion, Urinalysis with sp ecific protein 30, positive nitrite, urine urobilinogen 4, leukocyte Estrace 25 with 3+ urine bacteria, urine culture pending per ED, EKG with bradycardia with atrial fibrillation with no acute evidence of ischemia. In the ED patient ministered potassium 40 mill equivalent p.o. x1 as well as dextrose amp and maintenance IV fluids. [facility] Medical History (Updated 06/24/23 @ 01:[address] Shelby Wallace MD) Afib Anemia Atherosclerotic heart disease of [place] coronary artery without angina pectoris CKD (chronic kidney disease), stage III CVA (cerebral vascular accident) Dementia Essential hypertension GERD (gastroesophageal reflux disease) History of GI bleed Inability to walk Nonrheumatic aortic (valve) insufficiency Old myocardial infarction PAF (paroxysmal atrial fibrillation) Polyneuropathy Type 2 diabetes mellitus Home Medications atorvastatin 40 mg tablet 40 mg PO QDAY 12/01/17 [History Last Taken Unknown] donepezil 5 mg tablet 5 mg PO QHS 12/01/17 [History Last Taken Unknown] clopidogrel 75 mg tablet 75 mg PO QDAY 01/14/18 [History Last Taken Unknown] insulin glargine 100 unit/mL (3 mL) subcutaneous pen (Lantus Solostar U-100 Insulin) 20 unit subcut DAILY diabetes 08/21/20 [History Last Taken Unknown] apixaban 5 mg tablet (Eliquis) 2.5 mg (1/2 x 5 mg) PO BID 30 days #30 tabs 05/10/23 [Rx Last Taken Unknown] nystatin 100,000 unit/gram topical powder (Nyamyc) 1 applic topical BID 30 days #0 grams 05/10/23 [Rx Last Taken Unknown] acetaminophen 325 mg tablet 650 mg (2 x 325 mg) PO Q4H PRN PRN Fever, pain 1- 07/27 #0 tabs 05/18/23 [Rx Last Taken Unknown] pantoprazole 40 mg tablet,delayed release (Protonix) 40 mg PO BID #60 tabs 05/18/23 [Rx Last Taken Unknown] atenolol 25 mg tablet 25 mg PO Q12H 06/24/23 [History Last Taken Unknown] enalapril maleate 10 mg tablet 10 mg PO Q12H 06/24/23 [History Last Taken Unknown] furosemide 20 mg tablet 20 mg PO DAILY 06/24/23 [History Last Taken Unknown] hydrochlorothiazide 25 mg tablet 25 mg PO DAILY 06/24/23 [History Last Taken Unknown] Allergy/AdvReac Type Severity Reaction Status Date / Time No Known Allergies Allergy Verified 06/23/23 21:23 Family History Mother Diabetes Son Heart disease Myocardial infarction Daughter Diabetes Daughter Diabetes Surgical History History of breast biopsy History of cardiac catheterization History of cholecystectomy History of colonoscopy (~2010) History of esophagogastroduodenoscopy (EGD) (~2001) Social History household members: children housing: house Smoking Status: Never smoker alcohol intake: never substance use type: does not use caffeine: Yes Type: coffee Number of servings: 4 what type of physical activity do you participate in: none seatbelt use: always do you feel safe at home: Yes ROS ROS Narrative Admission Review of Systems: CONSTITUTIONAL: No weight loss, fever, chills, + weakness or fatigue. HEENT: Eyes: No visual loss, blurred vision, double vision or yellow sclerae. Ears, Nose, Throat: No hearing loss, sneezing, congestion, runny nose or sore throat. SKIN: + Intertrigo, staged ecchymoses, notable left dorsal foot stasis blister that is deroofed with no obvious evidence of infection or foul drainage. CARDIOVASCULAR: + Edema, mild orthopnea. No chest pain, chest pressure or chest discomfort, palpitations, syncopal events. RESPIRATORY: + Exertional shortness of breath. No cough or sputum, wheezing, hemoptysis. GASTROINTESTINAL: + Dark appearing stools. No anorexia, nausea, vomiting or diarrhea, abdominal pain, BRBPR. GENITOURINARY: + dysuria, frequency. No urgency or retention. NEUROLOGICAL: + Dementia underlying. No headache, dizziness, syncope, paralysis, ataxia, numbness or tingling in the extremities, focal weakness, change in bowel or bladder control, seizure. MUSCULOSKELETAL: + muscle, back pain, joint pain or stiffness. HEMATOLOGIC: + anemia, bleeding or bruising. LYMPHATICS: No enlarged nodes. No history of splenectomy. PSYCHIATRIC: No history of depression or anxiety. ENDOCRINOLOGIC: No reports of sweating, cold or heat intolerance. No polyuria or polydipsia. ALLERGIES: No history of asthma, hives, eczema or rhinitis. Vital Signs Vital Signs Vital Signs: 06/23/23 21:20 06/23/23 22:38 06/23/23 22:43 Temperature 96.9 F L Temperature Source Temporal Pulse Rate 55 L 50 L Respiratory Rate 20 H 17 Respiratory Effort Short of Breath Respiratory Pattern Normal Blood Pressure 190/74 H Blood Pressure Mean 112 Pulse Ox 95 94 Oxygen Delivery Method Room Air Room Air Weight Weight: 198 lb 3.129 oz Body Mass Index (BMI) 38.7 Physical Exam Narrative Physical Examination: General: Awake, alert, oriented x 3 and cooperative, laying in the ED bed, fatigued, fatigued appearing, no acute distress. Skin: Normal color, normal turgor, no icterus, no cyanosis except occasional staged ecchymoses, mild intertrigo, left dorsal foot stasis blister the removed with no ZOILA wound erythema or marked drainage. HEENT: AT/NC, EOMI, PERRLA, mildly dry MM, no carotid bruits, difficult to assess JVD given thickened neck. Lungs: Diminished, greater bases, appropriate effort, during minimal rales, no evidence of any distress, no rhonchi or wheezing. Heart: Irregular, bradycardic; no gallop, rub audible. Abdomen: Soft, obese, NTTP g, difficult to assess distention as well as HSM given habitus, mildly hyperactive bowel sounds. Extremities: No cyanosis, no clubbing, peripheral edema ankle to mid snyder 2+ similar to prior presentation, see skin. Neurological: Patient awake, alert, oriented as noted, cognitive function intact; pupils equally reactive to light and accommodation, cranial nerves grossly normal, moving all 4 extremities, no focal deficits, strength moderately to severely globally decreased secondary to acute presentation and underlying comorbidities. Psychiatric: Affect appears fatigued otherwise normal, no acute evidence of depressive or anxiety feelings. Results Lab / Micro Data 06/23/23 23:03 06/23/23 23:03 Labs: Laboratory Results - last 24 hr 06/23/23 23:03: WBC 8.2, RBC 3.38 L, Hgb 8.8 L, Hct 29.3 L, MCV 86.7, MCH 26.0 L , MCHC 30.0 L, RDW Std Deviation 78.3 H, RDW Coeff of Deep 25.3 H, Plt Count 349, MPV 9.6, Immature Gran % (Auto) 0.500, Neut % (Auto) 75.4 H, Lymph % (Auto) 10.8 L, [place] % (Auto) 9.5, Eos % (Auto) 3.3, Baso % (Auto) 0.5, Absolute Neuts (auto) 6.2, Absolute Lymphs (auto) 0.88, Nucleated RBC % 0, Polychromasia RARE, Hypochromasia 1+, Anisocytosis 2+, Acanthocytes (Spur) 1+, Sodium 139, Potassium 3.1 L, Chloride 102, Carbon Dioxide 32.0, Anion Gap 5, BUN 25 H, Creatinine 1.05 H, Estim Creat Clear Calc 32.23, Est GFR (MDRD) Af Amer 65, Est GFR (MDRD) Non- Af 54 L, BUN/Creatinine Ratio 23.8 H, Glucose 34 L*, Calcium 9.8, Troponin I High Sens 30 06/24/23 00:16: POC Glucose 25 L* 06/24/23 00:47: POC Glucose 47 L Radiology Impression Chest X-Ray 06/23/23 23:07 IMPRESSION: Central pulmonary vascular congestion. Electronically Signed: Dax Gaxiola MD at 23:35 EDT , Assessment & Plan Assessment/Plan (1) Hypoglycemia: PLAN: Plan The patient is a 77 y/o F w/ PMHx: CKD stage IIIb, PAF, HTN, HLD, Dementia unclear type with unclear behavioral disturbance history, Diabetes mellitus type II, CKD stage IIIb, Chronic normocytic anemia/Fe deficiency anemia, Hx CVD, Chronic severe debility with wheelchair-bound status, PAF, Hx GI bleed who presents to the [facility] ED on 06/24/23 with general fatigue and malaise similar to when she had required blood transfusions previously with GI bleed reporting that she has black stools but she is also on chronic iron supplementation and [place] until approximately 1 week prior to transition to home with her son with recent stasis blister developed on her left foot with intermittent dyspnea as well as mild dysuria and frequency with no fevers or chills but given significant ongoing myriad of issues and inability to be cared for at home prompted ED evaluation. #1. Debility, weakness, Multifactorial, secondary to Acute hypoglycemia with underlying IDDM and Acute Complicated UTI as well as #2: Given significant fatigue and debility with notable hypoglycemia and concerns for self-care will admit to medical surgical floor, maintain on fall precautions, will hold all diabetic medication and continue aggressive blood sugar trending if remains low and if this is the case certainly low threshold to add dextrose IV fluids, will allow broadened diet at this time, hemoglobin A1c requested, UA upon ED evaluation remarkable, pending UCx,monitor I/Os, continue IV Rocephin w/ transition as able pending sensitivities and speciation. PT/OT/case management consulted for discharge planning. Nutrition consulted for education as poor diet/inappropriate intake history. #2. Incidentally noted chest x-ray congestion with Suspected Underlying Chronic HFpEF: Patient appropriate on room air, currently BP normal range thus preference to avoid any pulse dose w/ IV Lasix but certainly if worsens could consider and patient does have BL LE pitting edema on top of CXR findings with reports of dyspnea primarily with exertion. Will obtain as noted TSH and free T4, magnesium level, supplementing potassium, recent echocardiogram 05/03/23 with LVEF 65%, at least grade 2 diastolic dysfunction, moderate mitral annular calcification, RVSP 42 mmHg, mild aortic stenosis, mild MADDIE. We will continue to Eliquis, Plavix, holding atenolol given recurrent issues with bradycardia here with during recent admission issues with bradycardia with sinus pauses but may add back if improved, continue enalapril as BP allows as well as oral Lasix with preference to prioritize Lasix oral regimen. Placing snug Bartolo wraps of bilateral lower extremity elevation. #3. Hypokalemia: Admission K+ 3.1, magnesium level requested, supplementation given, repeat level in AM. #4. History of recent GI bleed: Admission hemoglobin 8.8 which has been stable, most recent prior to this 05/18/2023 hemoglobin 7.4, most recent readmission 05/14/2023 with GI bleed at that time following initiation of anticoagulation therapy given PAF diagnosis with EGD with notable findings including multiple oozing duodenal ulcers treated with monopolar probe with eventual resumption of antiplatelet and anticoagulant therapy in addition to ongoing PPI and plan continued outpatient GI follow-up. Patient is continued on chronic iron and likely responsible for her dark stools but to be cautious we will obtain guaiac given complaints. Will repeat CBC in AM. #5. Adult failure to thrive with debility, wheelchair-bound, unable to safely care for self complicated by Left lower extremity pedal stasis blister now deroofed: We will continue dressing changes with Adaptic given fresh deroofing, elevation, Bartolo wrap's, wound RN consultation, PT/OT/case management consultation for discharge planning, maintain on fall precautions. No obvious evidence of infection at this point with erythema or significant wound drainage. Ideally once able with pulse dose with IV Lasix however BP currently low range. We will continue oral regimen as able but prioritize Lasix. #6. PAF: Recent admission with bradycardia with sinus pauses with cardiology evaluation, BP upon current presentation remains significantly low, will hold again at this time, will continue anticoagulation therapy. #7. Chronic Kidney Disease Stage IIIb likely secondary to underlying hypertensive and diabetic disease history: Admission BUN/Cr 25/1.05, baseline renal function recently appears 1.3-1.4, will continue to trend. #8. Dementia, unclear type with unclear behavioral disturbance history: We will continue patient home Aricept, complicates presentation, PT/OT/case management consulted for discharge planning, preferentially skilled placement given unsafe for any return to home concept without caregiver. #9. History CVA/CVD: We will continue NOAC and antiplatelet therapy, continue hypertensive regimen with alterations as needed given low BP, continue statin therapy. Holding diabetic regimen given hyperglycemia upon presentation with adjustments as needed pending further trending. #10. Hypertension: BP low, ideally would like to IV pulse dose Lasix but in the interim we will continue oral enalapril and oral Lasix with prioritization of the Lasix, given low BP we will temporarily hold hydrochlorothiazide and given bradycardia reoccurrence will hold atenolol. Add back if appropriate. #11. Hyperlipidemia: We will continue patient home statin therapy. #12. Obesity: Weight loss and lifestyle changes encouraged. #13. Recent presentation w/ Abnormal TSH, subclinical: During prior admissions TH levels have been elevated, 05/01/2023 TSH 3.48 however free T4 was normal, subclinical, given ongoing bradycardia to be cautious we will obtain free T4 and TSH. #14. DVT prophylaxis: Continue home NOAC. #15. CODE status: Patient does not have HCPOA or LW in place but her son is her caregiver. Full Code. Charges/Coding Visit Charges Inpatient E&M: 48008 Init Hosp L3
[2023-06-24 01:32] LABS: Color, Urine Yellow (Yellow); Glucose, Dipstick Normal (Normal); Ketone-Dipstick Negative (Negative); Leukocyte Esterase-Dipstick 25 /ul (Negative); Mucous, Urine 0 SEEN /hpf (<or=2+); Nitrite-Dipstick Positive (Negative); Occult Blood-Urine Negative /ul (Negative); Protein-Dipstick 30 mg/dl (Negative); Specific Gravity, Urine 1.015 (1.002-1.030); Squamous Epithelial Cells - UA 0 SEEN /hpf (5-10); Urine Bilirubin Dipstick Negative (Negative); Urine Clarity Clear (Clear); Urine Urobilinogen 4 mg/dl (Normal)
[2023-06-24 01:36] LABS: Bacteria 3+ /hpf (None Seen); Red Blood Cells-Urine 0-5 SEEN /hpf (0-5); White Blood Cells 0-5 SEEN /hpf (0-5)
[2023-06-24] MEDS: Potassium Chloride Oral Tablet 20 MEQ 40 MEQ PO (01:37)
[2023-06-24 01:48] LABS: Bedside Glucose 182 mg/dL (74-106)
[2023-06-24 02:07] LABS: Magnesium 2.3 mg/dL (1.6-2.6)
[2023-06-24] MEDS: Ceftriaxone 1 GM/50 ML BAG IV ×2 (03:35→22:07)
[2023-06-24] MEDS: Lisinopril 10 MG Tablet PO ×3 (03:35→22:18)
[2023-06-24] MEDS: hydrALAZINE 20 MG/ML Vial 10 MG IV (03:37)
[2023-06-24 03:41] LABS: Bedside Glucose 147 mg/dL (74-106)
[2023-06-24 06:27] LABS: Bedside Glucose 200 mg/dL (74-106)
[2023-06-24 06:34] LABS: Absolute Lymphocyte Count 0.68 X10^3/uL (0.83-4.51); Absolute Neutrophil Count 7.7 X10^3/uL (2.0-7.7); Basophil# 0.04 X10^3/uL; Basophil% 0.4 % (0-1); Eosinophil# 0.21 X10^3/uL; Eosinophils% 2.2 % (0-5); Hematocrit 30.1 % (37-47); Lymphocyte # 0.68 X10^3/ul (0.83-4.51); Lymphocyte % 7.2 % (19-41); Mean Corp Hgb Conc 29.9 g/dL (32-36); Mean Corpuscular Hgb 26.9 pg (27.0-32.0); Mean Corpuscular Volume 89.9 fL (81-99); Mean Platelet Vol. 9.2 fl (6.2-12.0); Monocyte# 0.81 X10^3/uL; Monocyte% 8.6 % (0-10); NRBC Flagged by Analyzer 0 % (0-5); Neutrophil # 7.65 X10^3/uL (2.7-7.7); Neutrophil % 80.8 % (47-70); POSITIVE MORPHOLOGY YES; Platelet Count 333 K/mm3 (150-450); RBC Distribution Width CV 25.5 % (11.6-14.6); RBC Distribution Width SD 81.8 fl (35.1-43.9); Red Blood Count 3.35 M/mm3 (4.2-5.4); White Blood Count 9.5 K/mm3 (4.4-11.0)
[2023-06-24 06:51] LABS: Differential Indicated SCAN CRITERIA MET
[2023-06-24 06:58] LABS: Acanthocytes 1+; Anisocytosis 2+; Hypochromasia 1+; Polychromasia RARE
[2023-06-24 07:12] LABS: ALB/GLOB Ratio 0.6 RATIO (0.9-2.4); AST(SGOT) 28 U/L (15-37); Alanine Aminotransfer ALT/SGPT 18 U/L (13-56); Albumin, Serum 2.7 g/dL (3.2-5.0); Alkaline Phosphatase 231 U/L (45-117); Anion Gap 5 (5-15); BUN 22 mg/dL (7-18); BUN/Creat Ratio 21.4 RATIO (10-20); Calcium,Total 9.3 mg/dL (8.5-10.1); Chloride 100 mmol/L (98-107); Creatinine, Serum 1.03 mg/dL (0.55-1.02); EST Glomerular Filtration Rate 55 mL/min (>60); Est Glom Filt Rate - Afr Amer 67 mL/min (>60); Estimated Creatinine Clearance 32.85 ml/min; Globulin 4.3 g/dL (2.2-4.2); Glucose 209 mg/dL (74-106); Potassium 3.6 mmol/L (3.5-5.1); Sodium Level 136 mmol/L (136-145); T4 Free Direct 1.19 ng/dL (0.76-1.46); Thyroid Stim Hormone (TSH) 6.05 uIU/mL (0.358-3.74)
[2023-06-24 08:14] LABS: Hemoglobin A1c 5.3 % (3.8-5.6)
--- NOTE | 2023-06-24 08:23 | WOUNDNOTE ---
wound photo: right lower leg
--- NOTE | 2023-06-24 08:24 | WOUNDNOTE ---
wound photo: left dorsal foot
[2023-06-24] MEDS: Glucerna Shake 120 ML LIQUID PO ×3 (10:34→16:40)
[2023-06-24] MEDS: Ferrous Sulfate 325 MG Tablet PO (10:35)
[2023-06-24] MEDS: Menthol/Lanolin/Calamine/Znox 113 GM Tube 1 APPLIC TOPICAL ×4 (10:35→22:15)
[2023-06-24] MEDS: Clopidogrel Bisulfate 75 MG Tablet PO (10:35)
[2023-06-24] MEDS: Pantoprazole Sodium 40 MG Tablet PO ×2 (10:36→22:10)
[2023-06-24] MEDS: Furosemide 20 MG Tablet PO (10:36)
[2023-06-24] MEDS: APIXABAN 2.5 MG TABLET (WCH) PO ×2 (10:36→22:10)
--- NOTE | 2023-06-24 11:10 | CASEMGMT ---
KAYLEN TREVIÑO Assessment: Face to Face with pt for initial transition planning/care coordination assessment. RN KAMILA introduced self and role at [facility], pt voices understanding and consents to assessment. Pt is A/O x4 and answers all questions appropriately at this time. Pt sitting up in bed in no distress. Care providers, pharmacy, and demographics verified/updated. Admitting Dx: adult FTT, hypoglycemia PCP:Sonya Specialists:pod and cardio, pt does not know the names Preferred Pharmacy: [facility] With Insurance: [employer] [facility] Prescription Benefit: yes LNOK: Julio Galdamez, son; Song Galdamez, son Living Arrangements: Pt lives with son Julio in a two story home with 4 steps to enter with a railing in the back and 5 steps to enter in the front. Pt states she does not use the second level of the home. Pt reports she needs assistance with all ADL/IADL's and that her sons assist her. Pt states she is w/c bound. Pt states she is concerned to return home because she cannot get out of the home with the steps, cannot afford a ramp and therefore cannot go to medical appts. Transportation: Pt states she does not have anyone who can transport her. DME/HHC/SNF: Pt has a w/c, BGM but needs strips, cane, FWW, insulin with sufficient supply. Pt denies hx of HHC and has recently been to [facility]. Pt states her son Julio is illiterate and her son Song is her DPOA. She is agreeable to KAYLEN TREVIÑO calling Song to discuss dc plan but not Julio. She states she cannot afford to go to [facility] again but knows she is not safe to go home. Pt states no further concerns/needs. CM to follow. Advised pt to ask CM if any further question/concerns/needs arise, voices understanding. Pt Goal: SNF Plan: TBD, pending therapy evals. Updated SW on home status. TC to pt son Song, he confirms he is DPOA, asked for him to bring in a copy to be scanned into pt chart. Song states he really does not know how things are going at home. States that she seems to be doing ok, he has spoken to her a couple of times since being out of the facility. He did not have an opinion on the dc plan and was not very talkative during the conversation.
[2023-06-24] MEDS: Insulin Lispro 100 UNIT/ML INSULN.PEN SC ×3 (11:55→22:14)
[2023-06-24 12:15] LABS: Bedside Glucose 202 mg/dL (74-106)
--- NOTE | 2023-06-24 13:01 | CASEMGMT ---
Discharge Planning A list of SNF providers including quality and resource use data and consistent with the patient?s preferred geographic region, medical needs, and insurance network was created in [facility]. This list was provided to the SW. Latanya Boss Discharge Planning Asst.
--- NOTE | 2023-06-24 14:39 | CASEMGMT ---
Discharge Planning Per business office mgr at [facility], patient's last stay with them was from 05/21-06/13. Her lcd with [employer] was 06/13. SW updated. Latanya Boss, Discharge Planning Asst.
--- NOTE | 2023-06-24 14:52 | NURSING ---
Assisted into chair x2 assist. Sitting in chair at this time. Stool sent down to lab for occult blood test.
--- NOTE | 2023-06-24 15:07 | CHAPLAIN ---
Type of Pastoral Visit _x__ Initial Visit ___ Follow-up Visit ___ On-call Visit ___ General Patient Visit ___ Spiritual Assessment ___ Family Conference ___ Bereavement ___ Rapid Response ___ Code Blue ___ Other (describe below) Pastoral Care Referral From _x__ Patient ___ Family ___ Nurse ___ Physician ___ Slope Hoist Operator ___ Lace Stripper ___ Other (describe below) Sacrament/Intervention _x__ Active listening ___ Anointing ___ Mosque ___ Bereavement ___ Communion _x__ Yeny exploration ___ _x__ Life review _x__ Prayer ___ Reconciliation ___ Sacrament of Sick _x__ Supportive presence ___ Wedding ___ Other (describe below) Pastoral Comments patient is asked open ended questions and she talks about her life, her family, and experiences in a roman catholic; pt states that her need is for a ramp to be built at her home; pt says that SW is looking into that for her; pt has limited support from family including the son that lives with her but who also has health issues
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
[2023-06-24 17:21] LABS: Bedside Glucose 186 mg/dL (74-106)
[2023-06-24] MEDS: Donepezil HCl 5 MG Tablet PO (22:10)
[2023-06-24] MEDS: Atorvastatin Calcium 40 MG Tablet PO (22:11)
[2023-06-24] MEDS: 0.9% Saline Lock 10 ML Syringe IV (22:17)
[2023-06-24 22:37] LABS: Bedside Glucose 166 mg/dL (74-106)
[2023-06-25] VITALS (10 sets, daily range): BP systolic 128–160; BP diastolic 48–77; PULSE 45–57; RESP 14–20; TEMP 36.5–37; O2SAT 90–100; BMI 39.3
[2023-06-25 04:08] LABS: Bedside Glucose 113 mg/dL (74-106)
[2023-06-25 07:13] LABS: Bedside Glucose 114 mg/dL (74-106)
[2023-06-25 08:37] LABS: Anion Gap 2 (5-15); BUN 21 mg/dL (7-18); BUN/Creat Ratio 23.6 RATIO (10-20); Calcium,Total 9.3 mg/dL (8.5-10.1); Chloride 105 mmol/L (98-107); Creatinine, Serum 0.89 mg/dL (0.55-1.02); EST Glomerular Filtration Rate 65 mL/min (>60); Est Glom Filt Rate - Afr Amer 79 mL/min (>60); Estimated Creatinine Clearance 38.02 ml/min; Glucose 105 mg/dL (74-106); Potassium 4.1 mmol/L (3.5-5.1); Sodium Level 138 mmol/L (136-145)
[2023-06-25] MEDS: Glucerna Shake 120 ML LIQUID PO ×2 (09:32→12:13)
[2023-06-25] MEDS: APIXABAN 2.5 MG TABLET (WCH) PO ×2 (09:33→20:49)
[2023-06-25] MEDS: Clopidogrel Bisulfate 75 MG Tablet PO (09:33)
[2023-06-25] MEDS: Furosemide 20 MG Tablet PO (09:33)
[2023-06-25] MEDS: Pantoprazole Sodium 40 MG Tablet PO ×2 (09:33→20:49)
[2023-06-25] MEDS: Menthol/Lanolin/Calamine/Znox 113 GM Tube 1 APPLIC TOPICAL ×4 (09:34→20:48)
--- NOTE | 2023-06-25 11:15 | PCM.PN.HOSP ---
Reason for Visit Reason for Visit: Diagnoses Hypoglycemia, unspecified (06/24/23) Subjective Subjective No acute events overnight. Patient seen at bedside this morning. Sitting comfortably in bedside chair, conversing normally, no acute distress. Patient states she feels slightly improved today compared to yesterday. She was able to get out of bed and to bedside chair with assistance. States she worked with PT and OT this morning and had more energy and ability to do leg exercises in the chair today. Denies any fevers or chills. Reports moderate appetite. Denies any acute pain or discomfort. No other acute concerns. Objective Data Objective Data Vital Signs: Vital Signs Temp Pulse Resp BP Pulse Ox O2 Del Method 97.7 F L 50 L 16 134/77 H 92 Room Air 06/25/23 10:06/25/23 10:06/25/23 10:06/25/23 10:06/25/23 10:06/25/23 10:26 Oxygen Delivery Method Room Air Weight: 91.4 kg Body Mass Index (BMI) 39.3 Intake & Output: Intake and Output for Last 24 Hours 06/23/23 06/24/23 06/25/23 23:59 23:59 23:59 Intake Total 1230 / 1230 Output Total 600 / 800 300 / 300 Balance 630 / 430 -300 / -300 Lab / Micro Data 06/24/23 06:10 06/25/23 07:47 Labs: Laboratory Results - last 24 hr 06/24/23 11:54: POC Glucose 202 H 06/24/23 16:38: POC Glucose 186 H 06/24/23 22:13: POC Glucose 166 H 06/25/23 03:33: POC Glucose 113 H 06/25/23 06:54: POC Glucose 114 H 06/25/23 07:47: Sodium 138, Potassium 4.1, Chloride 105, Carbon Dioxide 31.0, Anion Gap 2 L, BUN 21 H, Creatinine 0.89, Estim Creat Clear Calc 38.02, Est GFR (MDRD) Af Amer 79, Est GFR (MDRD) Non-Af 65, BUN/Creatinine Ratio 23.6 H, Glucose 105, Calcium 9.3 Micro: Microbiology 06/24/23 14:35 Stool Stool Occult Blood (MARQUEZ) - Final Physical Exam Const alert, oriented x3 and no apparent distress Constitutional Narrative: Chronically ill-appearing, obese, sitting comfortably in bedside chair, conversing normally, no acute distress. General Appearance: cooperative and comfortable HEENT normocephalic, head/scalp atraumatic, hearing grossly normal bilaterally, nasal mucous membranes and turbinates normal and moist oral mucous membranes Eyes PERRL, EOMs intact bilaterally and conjunctivae normal Neck full ROM, no lymphadenopathy and supple Lymph Lymphatic: no lymphadenopathy noted Chest inspection of chest normal Resp normal respiratory effort, normal air movement, no use of accessory muscles and clear to auscultation bilaterally Cardio regular rate, regular rhythm, no murmurs and peripheral pulses 2+ throughout GI normal to inspection, nondistended, normoactive bowel sounds, soft to palpation, non-tender and non-distended Back/Spine normal ROM Extremity normal to inspection, full ROM and no pedal edema Skin no rashes or lesions noted Psych mental status grossly normal Assessment & Plan Assessment/Plan (1) Weakness: PLAN: Plan Patient is a 77-year-old female with history of chronic severe debility with wheelchair-bound status, dementia, CKD stage IIIb, PAF, type 2 diabetes, hypertension and hyperlipidemia who presented to [facility] on 06/24/2023 with worsening fatigue. 1. Chronic debility with acutely worsened weakness, improving Patient with known chronic debility that is worsened over the last several months. Acute worsening may have been secondary to hypoglycemia on admission as noted below, along with mild UTI. Was admitted at [facility] from 05/14/23-05/21/23 for symptomatic anemia and acute hyperkalemia; was found to have an upper GI bleed on EGD that was treated, required 2 units packed red blood cells with stabilization of hemoglobin. Patient was discharged to SNF at that time and reportedly went home from the SNF about 1 week prior to this admission. Apparently it was recommended that patient remain in SNF at that time, however her son was also hospitalized recently and was being discharged home, and thus she decided to go home to help take care of him. Over that week, patient noticed that she was not able to do much for herself around the house and was weaker than her baseline, so she came to the ED for further evaluation. Labs were notable for hyperglycemia with blood sugar in the 20s-30s on admit. UA consistent with mild UTI as noted below. ? PT/OT/case management following. Patient states that she would like to go home on discharge, however at this time seems that SNF placement on discharge for further therapy would be most appropriate. We will continue to discuss. Treating diabetes and UTI as noted below. 2. Uncomplicated UTI UA on admit showed positive nitrates, 25 leukocyte esterase, 3+ bacteria. Urine culture positive for GNR lactose chemist instrumentation, speciation and sensitivities pending. Has history of pansensitive E. coli UTI back in 2018. Vitals have been stable since admit, afebrile, normal white blood cell count. ? Continue ceftriaxone, narrow as able. Plan for 5-day course of antibiotics. 3. Type 2 diabetes with hypoglycemia Home diabetes regimen of Lantus 20 units nightly. Hemoglobin A1c 5.3% on admission. Blood glucose 25 on admission, repeat 47 after treatment, then increased to the 180s with further treatment. Patient's mental status did improve after treatment of hypoglycemia. ?Sliding scale insulin while inpatient. No insulin on discharge. Can consider metformin or other oral hypoglycemic agent as needed. 4. Anemia, with history of recent GI bleed ? Hemoglobin 8.8 on admission, stable in comparison to hemoglobin on recent discharge in early May. Continue home iron supplement. Continue home PPI twice daily. Chronic medical conditions: ? Paroxysmal atrial fibrillation: Bradycardic on admission, holding home atenolol, restart as needed. Continue home Eliquis. ? Dementia: Continue home Aricept. ? HFpEF, hypertension, hyperlipidemia: Echo 05/03/2023 with EF 65%, grade 2 diastolic dysfunction. Continue home Lasix 20 mg daily. Continue home ROSALINA inhibitor. Holding home hydrochlorothiazide for now, restart as needed. DVT prophylaxis: Eliquis CODE STATUS: Full code, verified Expected disposition: SNF versus home with home health care, TBD Total clinical time spent by myself addressing the patient's medical issues, reviewing all the data, and collaborating with patient's care team: 35 minutes. Charges/Coding Visit Charges Inpatient E&M: 50014 Subs Hosp L2
[2023-06-25] MEDS: Insulin Lispro 100 UNIT/ML INSULN.PEN SC ×3 (12:11→20:49)
[2023-06-25] MEDS: Ferrous Sulfate 325 MG Tablet PO (12:13)
[2023-06-25 12:39] LABS: Bedside Glucose 209 mg/dL (74-106)
--- NOTE | 2023-06-25 13:47 | CASEMGMT ---
Social Work SW met with pt and discussed advance directives. Pt states she has completed a living will and health care power of claims attorney naming her son Song Galdamez. Pt states documents are at her attorneys office and requested SW call claims attorney and have them sent over. Request made to pt claims attorney. HANSEL Weaver
--- NOTE | 2023-06-25 14:06 | CASEMGMT ---
Addendum entered by Dora Carrasquillo 06/25/23 14:19: social work SW notified pt that Adult Protective Services will be contacted at time of discharge. Pt understanding and states she has worked with them in the past. HANSEL Weaver Original Note: Social Work SW met with pt to discuss discharge plan. SW discussed pt functionality with therapy and need for SNF. Pt continues to deny need or desire to go to SNF and states she will be returning home. Pt concerned about finances. SOFIE informed pt that SW can attempt precert with insurance and request they cover cost of SNF for short time. Pt denies and refuses referral to SNF. SW spoke with pt regarding home situation. Pt feels she and her son Julio are managing ok at home. Pt is concerned with getting into home as when she left [place], a neighbor had to carry her up the 4 steps that lead into her home as she could not walk up the steps. SW spoke with pt regarding having a ramp installed. Pt is agreeable to this but does not have finances to cover the cost. SOFIE assisted pt in completing an application to [facility] and faxed to [facility]. SOFIE explained that this is a slow process and even if they agree to pay for a ramp, it will take time. SOFIE provided pt with a list of ramp providers. Pt requesting to use an ambulance to take her home to get her into the home. SOFIE informed pt that insurance may not cover the cost of this transport. Pt understanding. RN updated that pt plans to return home at time of discharge. HANSEL Weaver
--- NOTE | 2023-06-25 14:12 | CASEMGMT ---
Discharge Planning A list of home healthcare providers including quality and resource use data and consistent with the patient?s preferred geographic region, medical needs, and insurance network was created in [employer]. This list was provided to the RN KAMILA. Latanya Boss, Discharge Planning Asst.
--- NOTE | 2023-06-25 14:54 | CASEMGMT ---
Addendum entered by Kyra Reeder 06/25/23 16:12: KAYLEN TREVIÑO into pt room to make aware that a GROUND SERVICE EQUIPMENT MECHANIC has not been secured but referrals have been sent and this will not be set up prior to dc if pt dc's over the weekend. She is aware that this will be worked on Wednesday and pt will be called to make aware. Pt states she wants to go home and that is fine. Addendum entered by Kyra Reeder 06/25/23 16:01: Per Ivelisse at [facility], they are unable to accept pt for care d/t staffing. KAYLEN TREVIÑO requested dc collections assistant to send referral to multiple agencies as pt states she has no preference. Addendum entered by Kyra Reeder 06/25/23 15:11: KAYLEN TREVIÑO back into pt room, pt has chosen [facility]. TC to Ivelisse at [facility], referral made, will await decision to accept. Original Note: KAYLEN TREVIÑO notified pt would like to return home post hospitalization. KAYLEN TREVIÑO into pt room, pt agreeable to [facility]. Provided pt with a list of [facility] agencies created by dc habitat conservation planner. Pt to review and KAYLEN TREVIÑO to check back.
[2023-06-25 17:10] LABS: Bedside Glucose 207 mg/dL (74-106)
[2023-06-25] MEDS: Donepezil HCl 5 MG Tablet PO (20:48)
[2023-06-25] MEDS: Lisinopril 10 MG Tablet PO (20:49)
[2023-06-25] MEDS: MELATONIN 3 MG TABLET PO (20:49)
[2023-06-25] MEDS: Atorvastatin Calcium 40 MG Tablet PO (20:49)
[2023-06-25] MEDS: Ceftriaxone 1 GM/50 ML BAG IV (20:50)
[2023-06-25] MEDS: Acetaminophen 325 MG Tablet 650 MG PO (20:50)
[2023-06-25 22:10] LABS: Bedside Glucose 178 mg/dL (74-106)
[2023-06-26 02:03] LABS: Bedside Glucose 128 mg/dL (74-106)
[2023-06-26 02:49] VITALS: BP 143/53; PULSE 51; RESP 16; TEMP 36.6; O2SAT 96
[2023-06-26] MEDS: Insulin Lispro 100 UNIT/ML INSULN.PEN SC ×2 (06:28→11:21)
[2023-06-26 06:46] LABS: Bedside Glucose 152 mg/dL (74-106)
[2023-06-26 08:12] LABS: Anion Gap 3 (5-15); BUN 31 mg/dL (7-18); BUN/Creat Ratio 30.1 RATIO (10-20); Calcium,Total 9.2 mg/dL (8.5-10.1); Chloride 104 mmol/L (98-107); Creatinine, Serum 1.03 mg/dL (0.55-1.02); EST Glomerular Filtration Rate 55 mL/min (>60); Est Glom Filt Rate - Afr Amer 67 mL/min (>60); Estimated Creatinine Clearance 32.85 ml/min; Glucose 132 mg/dL (74-106); Potassium 4.8 mmol/L (3.5-5.1); Sodium Level 136 mmol/L (136-145)
[2023-06-26 08:13] VITALS: BP 146/55; PULSE 70; RESP 18; TEMP 36.5; O2SAT 94
[2023-06-26 08:14] VITALS: O2SAT 90
[2023-06-26] MEDS: Pantoprazole Sodium 40 MG Tablet PO (08:19)
[2023-06-26] MEDS: Clopidogrel Bisulfate 75 MG Tablet PO (08:19)
[2023-06-26] MEDS: Lisinopril 10 MG Tablet PO (08:19)
[2023-06-26] MEDS: Furosemide 20 MG Tablet PO (08:20)
[2023-06-26] MEDS: APIXABAN 2.5 MG TABLET (WCH) PO (08:20)
[2023-06-26] MEDS: Menthol/Lanolin/Calamine/Znox 113 GM Tube 1 APPLIC TOPICAL ×2 (08:21→14:35)
[2023-06-26] MEDS: Ferrous Sulfate 325 MG Tablet PO (11:22)
[2023-06-26 11:47] LABS: Bedside Glucose 274 mg/dL (74-106)
--- NOTE | 2023-06-26 12:18 | DCINST_ITS ---
Discharge Instructions Diet Discharge Diet: No restrictions Activity Discharge Activity: Return to Normal Activity Weight Bearing Status: Full weight bearing Follow Up Care Please Follow Up With: Namita Hassan MD When: As needed Test Results: Test results from this visit will be discussed in further detail at your follow- up appointment, if applicable. Pending Tests Upon Discharge: None Discharge Plan Admission Admit Date/Time: 06/24/23 01:30 Primary Reason for Your Visit: Weakness Attending Provider: David Biggs Primary Care Provider: Namita Hassan Consulting Providers: Shelby Wallace Instructions Additional Instructions / Restrictions: Medication changes: ? STOP: Insulin and atenolol ? START: Metformin 500 mg daily (for diabetes), Macrobid 100 mg daily for 3 days (for your UTI) Continue all other home medications the same. The home health care team will be in to see you in the next several days. Follow-up with your primary care doctor as needed. Discharge Orders/Prescriptions Prescriptions: New metformin 500 mg tablet extended release 24 hr 500 mg PO DAILY 90 Days Qty: 90 0RF nitrofurantoin monohyd/m-cryst [Macrobid] 100 mg capsule 100 mg PO BID 3 Days Qty: 6 0RF Rx Instructions: must administer with a meal/food Continued atorvastatin 40 mg tablet 40 mg PO QDAY donepezil 5 mg tablet 5 mg PO QHS clopidogrel 75 mg tablet 75 mg PO QDAY Hold Instructions: Resume on 05/24/23. nystatin [Nyamyc] 100,000 unit/gram Powder 1 applic topical BID 30 Days Qty: 0 0RF Protocol: *Topical Application Instructions APPLICATION INSTRUCTIONS: apply to affected area Rx Instructions: Continue application until intertrigo resolved. Eliquis 5 mg Tablet 2.5 mg PO BID 30 Days Qty: 30 0RF Hold Instructions: Resume on 05/24/23. acetaminophen 325 mg Tablet 650 mg PO Q4H PRN PRN (Reason: Fever, pain -07/27) Qty: 0 0RF pantoprazole [Protonix] 40 mg tablet,delayed release (DR/EC) 40 mg PO BID Qty: 60 0RF enalapril maleate 10 mg tablet 10 mg PO Q12H furosemide 20 mg tablet 20 mg PO DAILY hydrochlorothiazide 25 mg tablet 25 mg PO DAILY Discontinued insulin glargine [Lantus Solostar U-100 Insulin] 100 unit/mL (3 mL) insulin pen 20 unit SC DAILY atenolol 25 mg tablet 25 mg PO Q12H Referrals / Follow Up: Namita Hassan MD [Primary Care Provider] - Disposition Disposition (needs filled in before D/C Order can be placed): Home Health Service
--- NOTE | 2023-06-26 12:26 | PCM.DC.SUM ---
Providers Date of Admission: 06/24/23 Date of Discharge: 06/26/23 Primary Care Physician: Dr. Namita Hassan MD Consultations 06/24/23 02:23 Consult: Onc/Wound/cab station attendant Routine Comment: Reason for Consult:: L foot wound Reason For Visit: ADULT FTT, HYPOGLYCEMIA Diagnosis Discharge Diagnosis (1) Weakness: Status: Acute Code(s): R53.1 - Weakness Medications at Discharge Home Medications atorvastatin 40 mg tablet 40 mg PO QDAY 12/01/17 donepezil 5 mg tablet 5 mg PO QHS 12/01/17 clopidogrel 75 mg tablet 75 mg PO QDAY 01/14/18 apixaban 5 mg tablet (Eliquis) 2.5 mg (1/2 x 5 mg) PO BID 30 days #30 tabs 05/10/23 nystatin 100,000 unit/gram topical powder (Nyamyc) 1 applic topical BID 30 days #0 grams 05/10/23 acetaminophen 325 mg tablet 650 mg (2 x 325 mg) PO Q4H PRN PRN Fever, pain 1-07/27 #0 tabs 05/18/23 pantoprazole 40 mg tablet,delayed release (Protonix) 40 mg PO BID #60 tabs 05/18/23 enalapril maleate 10 mg tablet 10 mg PO Q12H 06/24/23 furosemide 20 mg tablet 20 mg PO DAILY 06/24/23 hydrochlorothiazide 25 mg tablet 25 mg PO DAILY 06/24/23 metformin 500 mg tablet,extended release 24 hr 500 mg PO DAILY 90 days #90 tabs 06/26/23 nitrofurantoin monohydrate/macrocrystals 100 mg capsule (Macrobid) 100 mg PO BID 3 days #6 caps 06/26/23 Hospital Course Operations None Procedures EKG and - (Chest x-ray) Summary of Care Provided Minutes Spent on Discharge: 38 Hospital Course: Patient is a 77-year-old female with history of chronic severe debility with wheelchair-bound status, dementia, CKD stage IIIb, PAF, type 2 diabetes, hypertension and hyperlipidemia who presented to [facility] on 06/24/2023 with worsening fatigue. Multiple medical conditions addressed during hospitalization as noted below. Chronic debility with acutely worsened weakness: Patient with known chronic debility that is worsened over the last several months. Acute worsening may have been secondary to hypoglycemia on admission as noted below, along with mild UTI. Was admitted at [facility] from 05/14/23-05/21/23 for symptomatic anemia and acute hyperkalemia; was found to have an upper GI bleed on EGD that was treated, required 2 units packed red blood cells with stabilization of hemoglobin. Patient was discharged to SNF at that time and reportedly went home from the SNF about 1 week prior to this admission. Apparently it was recommended that patient remain in SNF at that time, however her son was also hospitalized recently and was being discharged home, and thus she decided to go home to help take care of him. Over that week, patient noticed that she was not able to do much for herself around the house and was weaker than her baseline, so she came to the ED for further evaluation. Labs were notable for hyperglycemia with blood sugar in the 20s-30s on admit. UA consistent with mild UTI as noted below. PT/OT/case management followed. Therapy recommendations were for long-term facility on discharge. However, patient reported wanting to go home with home health care. She did show some improvement with functional status prior to discharge. However, have high concern that patient could be a hospital bounce back given poor functional status at baseline. Patient discharged home with home health care in stable condition. Uncomplicated UTI: UA on admit showed positive nitrates, 25 leukocyte esterase, 3+ bacteria. Urine culture positive for pansensitive E. coli. Has history of pansensitive E. coli UTI back in 2018. Vital stable on admit and remained stable throughout admission. Was treated with ceftriaxone while inpatient, discharged home on Macrobid with plan to complete 5-day course total. Type 2 diabetes with hypoglycemia: Home diabetes regimen of Lantus 20 units nightly. Hemoglobin A1c 5.3% on admission. Blood glucose 25 on admission, repeat 47 after treatment, then increased to the 180s with further treatment. Patient's mental status did improve after treatment of hypoglycemia. Patient was treated with sliding scale insulin while inpatient. Notably did have blood sugars in the 140s to 200s fairly consistently while admitted. Given severe hypoglycemia on admit and A1c of 5.3%, discontinued patient's home insulin on discharge. Started metformin 500 mg daily. Recommended outpatient follow-up for further management. Bradycardia, history of paroxysmal atrial fibrillation: Patient bradycardic to low 50s on admission. Remained bradycardic with heart rates in the 40s to 50s for majority of admission. EKG showed sinus bradycardia, no concern for slow A-fib on telemetry. On home atenolol, this was held throughout admission. Suspect bradycardia may be due to home donepezil. Patient notably had adequate blood pressures throughout admission. Discontinued atenolol on discharge. Discharge diagnoses: ? Chronic debility with acutely worsened weakness, improving ? Uncomplicated UTI ? Type 2 diabetes with hyperglycemia ? Anemia with recent GI bleed, stable ? Dementia ? HFpEF ? Hypertension ? Hyperlipidemia Total clinical time spent by myself addressing the patient's discharge needs: 38 minutes. Physical Exam Const alert, oriented x3 and no apparent distress Constitutional Narrative: Chronically ill-appearing, obese, sitting comfortably in bedside chair, conversing normally, no acute distress. General Appearance: cooperative and comfortable HEENT normocephalic, head/scalp atraumatic, hearing grossly normal bilaterally, nasal mucous membranes and turbinates normal and moist oral mucous membranes Eyes PERRL, EOMs intact bilaterally and conjunctivae normal Neck full ROM, no lymphadenopathy and supple Lymph Lymphatic: no lymphadenopathy noted Chest inspection of chest normal Resp normal respiratory effort, normal air movement, no use of accessory muscles and clear to auscultation bilaterally Cardio regular rhythm, no murmurs and peripheral pulses 2+ throughout Cardio Narrative: Bradycardic. GI normal to inspection, nondistended, normoactive bowel sounds, soft to palpation, non-tender and non-distended Back/Spine normal ROM Extremity normal to inspection, full ROM and no pedal edema Skin no rashes or lesions noted Psych mental status grossly normal Weight / BMI Weight Weight: 91.4 kg Body Mass Index (BMI) 39.3 ABG / Lab / Microbiology Data 06/24/23 06:10 06/26/23 07:00 Laboratory: Laboratory Results - last 24 hr 06/25/23 12:09: POC Glucose 209 H 06/25/23 16:45: POC Glucose 207 H 06/25/23 20:45: POC Glucose 178 H 06/26/23 01:40: POC Glucose 128 H 06/26/23 06:26: POC Glucose 152 H 06/26/23 07:00: Sodium 136, Potassium 4.8, Chloride 104, Carbon Dioxide 29.0, Anion Gap 3 L, BUN 31 H, Creatinine 1.03 H, Estim Creat Clear Calc 32.85, Est GFR (MDRD) Af Amer 67, Est GFR (MDRD) Non-Af 55 L, BUN/Creatinine Ratio 30.1 H, Glucose 132 H, Calcium 9.2 06/26/23 11:18: POC Glucose 274 H Microbiology: Microbiology 06/24/23 01:25 Urine, Random Urine Culture - Final Escherichia coli 06/24/23 14:35 Stool Stool Occult Blood (MARQUEZ) - Final D/C Instructions Discharge Diet: No restrictions Weight Bearing Status: Full weight bearing Pending Tests Upon Discharge: None Please Follow Up With: Namita Hassan MD When: As needed Meaningful Use Info Meaningful Use Diagnoses (Choose all that apply): None applicable Discharge Plan Admission Admit Date/Time: 06/24/23 01:30 Primary Reason for Your Visit: Weakness Attending Provider: David Biggs Primary Care Provider: Namita Hassan Consulting Providers: Shelby Wallace Instructions Additional Instructions / Restrictions: Medication changes: ? STOP: Insulin and atenolol ? START: Metformin 500 mg daily (for diabetes), Macrobid 100 mg daily for 3 days (for your UTI) Continue all other home medications the same. The home health care team will be in to see you in the next several days. Follow-up with your primary care doctor as needed. Discharge Orders/Prescriptions Prescriptions: New metformin 500 mg tablet extended release 24 hr 500 mg PO DAILY 90 Days Qty: 90 0RF nitrofurantoin monohyd/m-cryst [Macrobid] 100 mg capsule 100 mg PO BID 3 Days Qty: 6 0RF Rx Instructions: must administer with a meal/food Continued atorvastatin 40 mg tablet 40 mg PO QDAY donepezil 5 mg tablet 5 mg PO QHS clopidogrel 75 mg tablet 75 mg PO QDAY Hold Instructions: Resume on 05/24/23. nystatin [Nyamyc] 100,000 unit/gram Powder 1 applic topical BID 30 Days Qty: 0 0RF Protocol: *Topical Application Instructions APPLICATION INSTRUCTIONS: apply to affected area Rx Instructions: Continue application until intertrigo resolved. Eliquis 5 mg Tablet 2.5 mg PO BID 30 Days Qty: 30 0RF Hold Instructions: Resume on 05/24/23. acetaminophen 325 mg Tablet 650 mg PO Q4H PRN PRN (Reason: Fever, pain 1-07/27) Qty: 0 0RF pantoprazole [Protonix] 40 mg tablet,delayed release (DR/EC) 40 mg PO BID Qty: 60 0RF enalapril maleate 10 mg tablet 10 mg PO Q12H furosemide 20 mg tablet 20 mg PO DAILY hydrochlorothiazide 25 mg tablet 25 mg PO DAILY Discontinued insulin glargine [Lantus Solostar U-100 Insulin] 100 unit/mL (3 mL) insulin pen 20 unit SC DAILY atenolol 25 mg tablet 25 mg PO Q12H Referrals / Follow Up: Namita Hassan MD [Primary Care Provider] - Disposition Disposition (needs filled in before D/C Order can be placed): Home Health Service Charges/Coding Visit Charges Inpatient E&M: 59843 Disch Hosp >30min
--- NOTE | 2023-06-26 13:35 | NURSING ---
talked with Lara CARRIZALES regarding discharge plans and concerns regarding discharging home with max 2 assist w/c bound and no green sheet on the chart. Aware concerns have been discussed with patient and pt to be discharged home, case mgmt to work on [facility] wednesday. aware per Lara pt's son is to be home and assisting with ADLs. Per Lara, concerns regarding plan to discharge home have been discussed and as pt a&Ox3 will be discharged home. aware [facility] is to be called for transportation as they will assist with getting patient into the house. aware market garden worker on today is to be calling APS and Lara stated she will remind her to do so. Discussed above information with primary RN.
[2023-06-26 14:25] VITALS: BP 155/61; PULSE 70; RESP 18; TEMP 35.9; O2SAT 95
--- NOTE | 2023-06-26 20:27 | CASEMGMT ---
Social Work SW left VM for Abelino with APS requesting return phone call to discuss d/c concerns for patient. SW will follow up with Abelino on Wednesday as Abelino is unavailable on weekends. Latasha PIMENTEL, NELIA
--- NOTE | 2023-06-28 11:57 | CASEMGMT ---
Social Work SW left for Abelino with APS to review concerns regarding patient being d/c home. SW received call back from Theresa with APS as Abelino is not available today. SW reviewed concerns noted in patient's chart regarding d/c home. Per patient's chart, patient was alert and orientated. Theresa to make a note of concerns and will further explore as appropriate. Latasha Flores GAS CONTROLLER, NELIA
--- NOTE | 2023-06-28 16:12 | CASEMGMT ---
TC to pt, she is aware that currently [facility] is the agency who has accepted her for services. She is agreeable to them coming to see her and is aware that they will be in touch with a time to come out. She states she is doing fair but did not want to elaborate when asked further questions. She states that she has been up in the chair today working on her bills.
--- NOTE | 2023-06-29 09:41 | CASEMGMT ---
Discharge Planning order sent to [facility]. SOC will be 06/30. RN CM updated. Latanya Boss, Discharge Planning Asst.
--- NOTE | 2023-07-01 16:26 | CASEMGMT ---
Social Work SW received pt's living will and Health Care POA from pt's insurance defense attorney. HCPOA names her daughter Pushpa Huston. Pt had told this SW that HCPMATEUS was her son Song. Phone call placed to pt and notified that Pushpa is listed as only HCPOA and if pt is unhappy with this she can complete a new HCPOA. SW also recieved a call from Kimberly Pickard at [facility] with questions regarding application for ramp into pt home. SW directed Suzan to call pt with questions. Pt notified to expect a call. HANSEL Weaver
--- NOTE | 2023-07-02 12:18 | CASEMGMT ---
Discharge Planning Patient has been accepted by [facility]. SOC was 07/01. RN CM updated. Latanya Boss, Discharge Planning Asst.
== END 2023-06-26 15:25 | disposition home health service (06) | DRG 638 ==
LOC: ED 06-24 01:35 → MS3 06-24 01:41
PROVIDERS: Admitting Provider Family Medicine; Emergency Provider Emergency Medicine; PCP Internal Medicine; Visit Provider Hospitalist
DX: E11.649 Type 2 diabetes mellitus with hypoglycemia without coma (principal); I13.0 Hypertensive heart and chronic kidney disease with heart failure and stage 1 through stage 4 chronic kidney disease, or unspecified chronic kidney disease; D62 Acute posthemorrhagic anemia; N39.0 Urinary tract infection, site not specified; I50.32 Chronic diastolic (congestive) heart failure; R62.7 Adult failure to thrive; E11.22 Type 2 diabetes mellitus with diabetic chronic kidney disease; B96.20 Unspecified Escherichia coli [E. coli] as the cause of diseases classified elsewhere; F03.90 Unspecified dementia, unspecified severity, without behavioral disturbance, psychotic disturbance, mood disturbance, and anxiety; N18.32 Chronic kidney disease, stage 3b; E11.65 Type 2 diabetes mellitus with hyperglycemia; I48.0 Paroxysmal atrial fibrillation; E11.42 Type 2 diabetes mellitus with diabetic polyneuropathy; Z79.4 Long term (current) use of insulin; E87.6 Hypokalemia; I25.10 Atherosclerotic heart disease of native coronary artery without angina pectoris; E78.5 Hyperlipidemia, unspecified; I25.2 Old myocardial infarction; E66.9 Obesity, unspecified; Z68.39 Body mass index [BMI] 39.0-39.9, adult; R53.81 Other malaise; R53.1 Weakness; Z99.3 Dependence on wheelchair; Z79.01 Long term (current) use of anticoagulants; Z79.02 Long term (current) use of antithrombotics/antiplatelets; Z79.899 Other long term (current) drug therapy; Z86.73 Personal history of transient ischemic attack (TIA), and cerebral infarction without residual deficits
CPT/HCPCS: 36415; 71045; 80048; 80053; 81001; 82274; 82962; 83036; 83735; 84439; 84443; 84484; 85025; 87086; 87088; 87186; 93005; 94668; 97110; 97162; 97166; 97530; 97535; 97802; 99285; J7030; A4216

== ENCOUNTER → 2023-08-03 | Outpatient (CLI) | payer MEDICARE, SELFPAY ==
[2023-08-03 12:17] LABS: Hematocrit 38.5 % (37-47); Hemoglobin 11.9 g/dL (12.0-15.0); Mean Corp Hgb Conc 30.9 g/dL (32-36); Mean Corpuscular Hgb 27.2 pg (27.0-32.0); Mean Corpuscular Volume 88.1 fL (81-99); Mean Platelet Vol. 11.8 fl (6.2-12.0); Platelet Count 239 K/mm3 (150-450); RBC Distribution Width CV 19.5 % (11.6-14.6); RBC Distribution Width SD 63.7 fl (35.1-43.9); Red Blood Count 4.37 M/mm3 (4.2-5.4); White Blood Count 7.7 K/mm3 (4.4-11.0)
[2023-08-03 12:25] LABS: Vitamin B12 620 pg/mL (211-911)
[2023-08-03 12:37] LABS: ALB/GLOB Ratio 0.7 RATIO (0.9-2.4); AST(SGOT) 23 U/L (15-37); Alanine Aminotransfer ALT/SGPT 16 U/L (13-56); Albumin, Serum 3.3 g/dL (3.2-5.0); Alkaline Phosphatase 145 U/L (45-117); Anion Gap 8 (5-15); BUN 54 mg/dL (7-18); BUN/Creat Ratio 31.2 RATIO (10-20); Chloride 102 mmol/L (98-107); Cholesterol 121 mg/dL (200); Creatinine, Serum 1.73 mg/dL (0.55-1.02); EST Glomerular Filtration Rate 30 mL/min (>60); Est Glom Filt Rate - Afr Amer 37 mL/min (>60); Ferritin 66 ng/mL (8-252); Globulin 4.7 g/dL (2.2-4.2); Glucose 209 mg/dL (74-106); High Density Lipoprotein 65 mg/dL; Iron 58 ug/dL (50-170); Iron Binding Capacity,Total 338 ug/dL (250-450); Magnesium 1.7 mg/dL (1.6-2.6); PERCENT IRON SATURATION 17.2 % (15.0-55.0); Potassium 3.6 mmol/L (3.5-5.1); Sodium Level 138 mmol/L (136-145); Triglycerides 102 mg/dL; Very Low Density Lipoprotein 20 mg/dL (5-40)
[2023-08-03 13:26] LABS: Hemoglobin A1c 6.7 % (3.8-5.6)
== END | disposition home or self-care (01) ==
PROVIDERS: PCP Internal Medicine; Visit Provider Internal Medicine
DX: E11.22 Type 2 diabetes mellitus with diabetic chronic kidney disease (principal); E11.649 Type 2 diabetes mellitus with hypoglycemia without coma; N18.32 Chronic kidney disease, stage 3b; I12.9 Hypertensive chronic kidney disease with stage 1 through stage 4 chronic kidney disease, or unspecified chronic kidney disease; R62.7 Adult failure to thrive
CPT/HCPCS: 80053; 80061; 82607; 82728; 82746; 83036; 83540; 83550; 83735; 85027

== ENCOUNTER 2023-11-02 20:26 | Inpatient (IN) | payer MEDICARE, SELFPAY ==
[2023-11-02] VITALS (23 sets, daily range): BP systolic 83–139; BP diastolic 25–80; PULSE 62–81; RESP 14–20; TEMP 32.7–35.7; O2SAT 99–100; BMI 29.5
[2023-11-02] MEDS: Succinylcholine Chloride 200 MG/10 ML SYRINGE 100 MG IV (20:43)
[2023-11-02] MEDS: Etomidate 20 MG/10 ML Vial IV (20:43)
[2023-11-02] MEDS: 0.9% Normal Saline (1000mL) 1,000 ML 999 ML IV ×4 (20:43→23:04)
--- NOTE | 2023-11-02 20:52 | CT_ITS ---
EXAM: CT HEAD WITHOUT INTRAVENOUS CONTRAST CLINICAL INDICATION: mental status change TECHNIQUE: Multiple axial images were obtained of the head without intravenous contrast. This CT exam was performed using one or more of the following dose reduction techniques: automated exposure control, adjustment of the mA and/or kV according to patient size, and/or use of iterative reconstruction technique. RADIATION DOSE: CTDIvol = 44.99 mGy, DLP = 796.11 mGy-cm COMPARISON: No relevant prior studies available. But prior MRI report March 01, 2010 described acute right basal ganglia lacunar infarct. FINDINGS: BRAIN AND EXTRA-AXIAL SPACES: Minimal cerebral volume loss and minimal low attenuation white matter changes. Prominent symmetric scalp arterial calcifications. No intra- or extra-axial hemorrhage. No evidence of acute infarct. No intracranial mass or mass effect. There is a small roughly 4 mm hypodensity in the right basal ganglia consistent with chronic lacune. There is preservation of the chun/white matter interface. Posterior fossa structures are unremarkable. Basal cisterns are patent. BONES/JOINTS: Hyperostosis of the frontal bones incidentally noted. No discrete lytic or blastic abnormalities. VASCULATURE: Peripheral calcification of the cavernous and supraclinoid ICAs. Mild calcifications of the distal vertebral arteries at the level of the foramen magnum. SINUSES: Slight mucosal thickening in a few ethmoid sinuses. Otherwise well-aerated sinuses, completely included. MASTOID AIR CELLS: Unremarkable. Clear. ORBITS: Visualized globes, extraocular muscles, optic nerves and retrobulbar fat appear unremarkable. CT/Brain/Head without Contrast IMPRESSION: No acute intracranial abnormality. Minimal chronic parenchymal changes for age. 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 Mentioned in 2009. Prominent intracranial and scalp arterial calcifications. Electronically Signed: Dorothea Jane MD at 23:03 EST ,
--- NOTE | 2023-11-02 20:52 | EKG12_ITS ---
Test Reason : Blood Pressure : / mmHG Vent. Rate : 064 BPM Atrial Rate : 000 BPM P-R Int : 000 ms QRS Dur : 130 ms QT Int : 464 ms P-R-T Axes : 000 -27 062 degrees QTc Int : 478 ms Atrial fibrillation Right bundle branch block Abnormal ECG Confirmed by JAZZY ZAMORA, JUDI ([id number]), continuity editor FREDA STILES ([id number]) on 11/05/2023 7:56:57 AM Referred By: Confirmed By:JUDI PURCELL MD
[2023-11-02 21:09] LABS: Bacteria 0 SEEN /hpf (None Seen); Mucous, Urine 0 SEEN /hpf (<or=2+); Red Blood Cells-Urine 0 SEEN /hpf (0-5)
--- OUTSIDE RECORDS SUMMARY | 2023-11-02 21:09 | XMS RPT_ITS | CCD ---
Author Name Unknown Address [address] [place] [id number] Organization [facility] Care Team Providers Care Moving Worker Name Role Phone Oumar Hassan MD Primary Care Provider [facility], Keti Unavailable Oumar Hassan MD Primary Care Provider [facility], Keti Unavailable Oumar Hassan MD Primary Care Provider TALAMPAS, OUMAR D Primary Care Unavailable TALAMPAS, OUMAR D Attending Unavailable QUINTANILLA, JERRICA Referring Unavailable TALAMPAS, OUMAR D Primary Care Unavailable QUINTANILLAJERRICA Attending Unavailable TALAMPAS, OUMAR D Primary Care Unavailable TALAMPAS, OUMAR D Primary Care Unavailable TALAMPAS, OUMAR D Attending Unavailable TALAMPAS, OUMAR D Primary Care Unavailable TALAMPAS, OUMAR D Referring Unavailable TALAMPAS, OUMAR D Primary Care Unavailable GURPREET BAR Attending Unavailable TESTRAGURPREET CARDENAS Referring Unavailable TALAMPAS, OUMAR D Primary Care Unavailable TALAMPAS, OUMAR D Referring Unavailable Allergies Allergy Classification Reported Allergen(s) Allergy Type Date of Onset Reaction(s) Facility (20 sources) dulaglutide; Translations: [DULAGLUTIDE] Drug Allergy 03-25-2020 [facility] Work Phone: Medications Current Medications Medication Drug Class(es) Dates Sig (Normalized) Sig (Original) perflutren lipid microspheres 1.3 mL in NaCl (PF) 0.9% 10 mL injection (DEFINITY) (15 sources) Start: 01-08-2023 End: 04-08-2024 perflutren lipid microspheres 1.3 mL in NaCl (PF) 0.9% 10 mL injection (DEFINITY) Completed/Discontinued Medications Medication Drug Class(es) Dates Sig (Normalized) Sig (Original) atenolol 25 mg oral tablet (20 sources) beta-Adrenergic Sherita Start: 07-28-2023 take 1 tablet by mouth once daily atenolol (TENORMIN) 25 mg tablet Take 1 tablet by mouth once daily. 90 tablet 1 07/28/2023 Active Problems Active Problems Problem Classification Problem Date Documented Date Episodic/Chronic Administrative/social admission (1 source) Financial problem; Translations: [Problem related to housing and economic circumstances, unspecified] Episodic Anxiety disorders (20 sources) Anxiety state; Translations: [Generalized anxiety disorder] Onset: 01-19-2007 01-19-2007 Chronic Cardiac dysrhythmias (5 sources) Paroxysmal atrial fibrillation; Translations: [Paroxysmal atrial fibrillation] Onset: 08-05-2023 08-05-2023 Chronic Cardiac dysrhythmias (2 sources) Bradycardia; Translations: [Bradycardia, unspecified] Onset: 07-28-2023 08-05-2023 Episodic Chronic kidney disease (5 sources) Chronic kidney disease stage 3B ; Translations: [Stage 3b chronic kidney disease (HCC)] Onset: 08-05-2023 08-05-2023 Chronic Coronary atherosclerosis and other heart disease (20 sources) Disorder of cardiovascular system; Translations: [Atherosclerotic heart disease of [place] coronary artery without angina pectoris] Onset: 01-27-2006 02-11-2006 Chronic Deficiency and other anemia (3 sources) Anemia; Translations: [Anemia, unspecified] Episodic Delirium, dementia, and amnestic and other cognitive disorders (20 sources) Dementia; Translations: [Unspecified dementia without behavioral disturbance] 10-25-2012 Chronic Diabetes mellitus with complications (20 sources) Insulin treated type 2 diabetes mellitus; Translations: [Uncontrolled type 2 diabetes mellitus with diabetic neuropathy, with long-term current use of insulin] Onset: 11-26-2010 12-19-2020 Chronic Disorders of lipid metabolism (20 sources) Hyperlipidemia; Translations: [Hyperlipidemia, unspecified] Onset: 07-28-2005 09-04-2015 Chronic Esophageal disorders (20 sources) Gastroesophageal reflux disease; Translations: [Gastro-esophageal reflux disease without esophagitis] Onset: 07-28-2005 02-11-2006 Chronic Essential hypertension (20 sources) Essential hypertension; Translations: [Essential (primary) hypertension] Onset: 07-28-2005 09-04-2015 Chronic Genitourinary symptoms and ill-defined conditions (20 sources) Urinary incontinence; Translations: [Unspecified urinary incontinence] Onset: 03-10-2006 09-04-2015 Chronic Heart valve disorders (20 sources) Aortic valve disorder; Translations: [Nonrheumatic aortic valve disorder, unspecified] Onset: 07-28-2005 02-11-2006 Chronic Immunizations and screening for infectious disease (2 sources) Requires varicella vaccination; Translations: [Encounter for immunization] Onset: 07-28-2023 Episodic Mood disorders (20 sources) Depressive disorder; Translations: [Other specified depressive episodes] Onset: 01-19-2007 01-19-2007 Chronic Mycoses (2 sources) Onychomycosis; Translations: [Tinea unguium] Episodic Osteoarthritis (20 sources) Degenerative joint disease involving multiple joints; Translations: [Polyosteoarthritis, unspecified] Onset: 07-28-2005 02-11-2006 Chronic Osteoporosis (20 sources) Osteoporosis; Translations: [Age-related osteoporosis without current pathological fracture] Onset: 07-28-2005 02-11-2006 Chronic Other and unspecified benign neoplasm (1 source) Neuroma; Translations: [Benign neoplasm of peripheral nerves and autonomic nervous system, unspecified] Episodic Other connective tissue disease (2 sources) Pain of toe of left foot; Translations: [Pain in left toe(s)] Episodic Other connective tissue disease (2 sources) Pain of toe of right foot; Translations: [Pain in right toe(s)] Episodic Other diseases of kidney and ureters (1 source) Acute renal insufficiency; Translations: [Disorder of kidney and ureter, unspecified] Episodic Other infections; including parasitic (1 source) Infestation by bed bug; Translations: [Other specified infestations] Episodic Other liver diseases (1 source) Elevated liver enzymes level; Translations: [Abnormal levels of other serum enzymes] Episodic Other nutritional; endocrine; and metabolic disorders (20 sources) Body mass index 30+ - obesity; Translations: [Obesity, unspecified] Onset: 10-28-2018 10-28-2018 Chronic Residual codes; unclassified (20 sources) Sleep apnea; Translations: [Sleep apnea, unspecified] 02-11-2006 Chronic Residual codes; unclassified (1 source) Procedure not done; Translations: [Procedure and treatment not carried out, unspecified reason] Episodic Unclassified (1 source) Moderate dementia without behavioral disturbance, psychotic disturbance, mood disturbance, or anxiety, unspecified dementia type (HCC); Translations: [Moderate dementia without behavioral disturbance, psychotic disturbance, mood disturbance, or anxiety, unspecified dementia type (HCC)] Onset: 10-25-2012 Past or Other Problems Problem Classification Problem Date Documented Date Episodic/Chronic Deficiency and other anemia (1 source) Anemia, unspecified; Translations: [Anemia, unspecified type] Onset: 10-27-2022 Episodic Other aftercare (20 sources) Long-term current use of insulin; Translations: [prison (current) use of insulin] Onset: 06-25-2022 06-25-2022 Episodic Other circulatory disease (20 sources) History of cerebrovascular accident; Translations: [Personal history of transient ischemic attack (TIA), and cerebral infarction without residual deficits] Onset: 03-28-2010 12-19-2020 Episodic Other connective tissue disease (20 sources) Muscle weakness; Translations: [Muscle weakness (generalized)] Onset: 04-28-2010 05-19-2010 Episodic Other nervous system disorders (20 sources) Abnormal gait; Translations: [Unspecified abnormalities of gait and mobility] Onset: 04-28-2010 05-19-2010 Episodic Other screening for suspected conditions (not mental disorders or infectious disease) (20 sources) Patient encounter status; Translations: [Encounter for screening for cardiovascular disorders] Onset: 03-03-2021 03-03-2021 Episodic Results Test Name Value Interpretation Reference Range Facil ity Vital Signs Date Time Vital Sign Value Performing Clinician Faci lity 07-28-2023 16:19-0400 Body temperature 96.69 [degF] Oumar Hassan MD Work Phone: [facility] 07-28-2023 16:19-0400 Body weight 76.2 kg Oumar Hassan MD Work Phone: [facility] 07-28-2023 16:19-0400 Diastolic blood pressure 62 mm[Hg] Oumar Hassan MD Work Phone: [facility] 07-28-2023 16:19-0400 Heart rate 40 /min Oumar Hassan MD Work Phone: [facility] 07-28-2023 16:19-0400 Respiratory rate 18 /min Oumar Hassan MD Work Phone: [facility] 07-28-2023 16:19-0400 SaO2% (BldA) [Mass fraction] 98 % Oumar Hassan MD Work Phone: [facility] 07-28-2023 16:19-0400 Systolic blood pressure 122 mm[Hg] Oumar Hassan MD Work Phone: [facility] 01-08-2023 11:20-0400 Body temperature 97.81 [degF] Oumar Hassan MD Work Phone: [facility] 01-08-2023 11:20-0400 Body weight 86.64 kg Oumar Hassan MD Work Phone: [facility] 01-08-2023 11:20-0400 Diastolic blood pressure 68 mm[Hg] Oumar Hassan MD Work Phone: [facility] 01-08-2023 11:20-0400 Heart rate 43 /min Oumar Hassan MD Work Phone: [facility] 01-08-2023 11:20-0400 Respiratory rate 18 /min Oumar Hassan MD Work Phone: [facility] 01-08-2023 11:20-0400 SaO2% (BldA) [Mass fraction] 100 % Oumar Hassan MD Work Phone: [facility] 01-08-2023 11:20-0400 Systolic blood pressure 132 mm[Hg] Oumar Hassan MD Work Phone: [facility] 10-27-2022 11:10-0500 Body weight 89.36 kg Jerrica Quintanilla TOOL INSPECTOR.CUSTOMER OPERATIONS MANAGER Work Phone: [facility] 10-27-2022 11:10-0500 Diastolic blood pressure 60 mm[Hg] Jerrica Quintanilla TOOL INSPECTOR.CUSTOMER OPERATIONS MANAGER Work Phone: [facility] 10-27-2022 11:10-0500 Heart rate 96 /min Jerrica Quintanilla TOOL INSPECTOR.CUSTOMER OPERATIONS MANAGER Work Phone: [facility] 10-27-2022 11:10-0500 Respiratory rate 16 /min Jerrica Goldsmiths TOOL INSPECTOR.CUSTOMER OPERATIONS MANAGER Work Phone: [facility] 10-27-2022 11:10-0500 SaO2% (BldA) [Mass fraction] 93 % Jerrica Goldsmiths TOOL INSPECTOR.CUSTOMER OPERATIONS MANAGER Work Phone: [facility] 10-27-2022 11:10-0500 Systolic blood pressure 130 mm[Hg] Jerrica Goldsmiths TOOL INSPECTOR.CUSTOMER OPERATIONS MANAGER Work Phone: [facility] 06-27-2022 10:50-0400 Body weight 86.18 kg Oumar Hassan MD Work Phone: [facility] 06-27-2022 10:50-0400 Diastolic blood pressure 62 mm[Hg] Oumar Hassan MD Work Phone: [facility] 06-27-2022 10:50-0400 Heart rate 44 /min Oumar Hassan MD Work Phone: [facility] 06-27-2022 10:50-0400 SaO2% (BldA) [Mass fraction] 100 % Oumar Hassan MD Work Phone: [facility] 06-27-2022 10:50-0400 Systolic blood pressure 102 mm[Hg] Oumar Hassan MD Work Phone: [facility] Encounters Encounter Date Encounter Type Care Provider Facility Start: 09-27-2023 Refill Oumar rascon MD Work Phone: [facility] Procedures Date Procedure Procedure Detail Performing Clinician Start: 07-28-2023 INFLUENZA VACCINE, P RSV FREE, AGE 65+ YR, HIGH DOSE, QUADRIVALENT (FLUZONE HIGH-DOSE) Oumar Hassan MD Work Phone: Start: 10-27-2022 INFLUENZA SEASONAL QUADRIVALENT HIGH DOSE AGE 65+ Jerrica Quintanilla TOOL INSPECTOR.CUSTOMER OPERATIONS MANAGER Work Phone: Plan of Treatment Date Care Activity Detail Author Start: 07-28-2024 Annual PCP Team [employer] ava Disease Visit Annual PCP Team Chronic Disease Visit [facility] Start: 07-28-2024 BP Controlled (<130/80) BP Controlle d (<130/80) [facility] Start: 01-15-2024 3 comp foot exam completed DIABETIC FOOT EXAM [facility] Start: 01-09-2024 ANNUAL PCP TEAM DRY MOLDER AVA DISEASE VISIT ANNUAL PCP TEAM CHRONIC DISEASE VISIT [facility] Start: 01-09-2024 COVID-19 VACCINE (#1) COVID-19 VACCI NE (#1) [facility] Immunizations Immunization Date Immunization Notes Care Provider Fa cility 07-28-2023 influenza (HD-IIV4) vaccine, age 65+ yr, high dose, quadrivalent, PF (FLUZONE HIGH-DOSE) Oumar Hassan MD Work Phone: [facility] 10-27-2022 influenza, high-dose , quadrivalent vaccine (FLUZONE HIGH DOSE QUADRIVALENT) Jerrica Quintanilla APRN.CUSTOMER OPERATIONS MANAGER Work Phone: [facility] Work Phone: 10-27-2022 influenza virus vacc ine, unspecified formulation Oumar Hassan MD Work Phone: [facility] 09-19-2021 influenza, high-dose , quadrivalent vaccine (FLUZONE HIGH DOSE QUADRIVALENT) Oumar Hassan MD Work Phone: [facility] 10-17-2019 influenza, high dose seasonal, preservative-free Oumar Hassan MD Work Phone: [facility] Work Phone: 10-17-2019 pneumococcal polysaccharide vaccine, 23 valent Oumar Hassan MD Work Phone: [facility] Work Phone: 10-19-2017 influenza, high dose seasonal, preservative-free Oumar Hassan MD Work Phone: [facility] 10-19-2017 pneumococcal conjuga te vaccine, 13 valent Oumar Hassan MD Work Phone: [facility] 09-04-2015 influenza, high dose seasonal, preservative-free Oumar Hassan MD Work Phone: [facility] 08-18-2013 influenza virus vacc ine, unspecified formulation Oumar Hassan MD Work Phone: [facility] 07-14-2012 influenza virus vacc ine, unspecified formulation Oumar Hassan MD Work Phone: [facility] 07-24-2010 influenza virus vacc ine, unspecified formulation Oumar Hassan MD Work Phone: [facility] Work Phone: 08-09-2008 influenza virus vacc ine, unspecified formulation Oumar Hassan MD Work Phone: [facility] 08-09-2006 influenza virus vacc ine, unspecified formulation Oumar Hassan MD Work Phone: [facility] Work Phone: 08-18-2005 influenza virus vacc ine, unspecified formulation Oumar Hassan MD Work Phone: [facility] Work Phone: 08-18-2005 pneumococcal polysaccharide vaccine, 23 valent Oumar Hassan MD Work Phone: [facility] Work Phone: Payers Date Payer Category Payer Medicare HUMANA MEDICARE HUMANA GOLD PLUS [id number] 2021-Present [phone] [address] [address] [place] [address] [facility] [id number] 2021 Medicare HUMANA MEDICARE HUMANA GOLD PLUS [id number] 2021-Present [phone] [address] [address] [place] [address] [facility] [place] [id number] 2021 Private Health Insurance [id number] Social History Date Type Detail Facility Tobacco smoking stat [facility] Never smoked tobacco [facility] Start: 12-19-2021 End: 07-28-2023 Alcohol intake Current non-drinker of alcohol (finding) [facility] Start: 1945 Sex Assigned At Not on file [facility] Start: 04-08-2022 End: 10-27-2022 Tobacco smoking status NHIS Ex-smoker [facility] Work Phone: History of tobacco use Cigarette Smoker [facility] Work Phone: Start: 04-08-2022 End: 10-27-2022 Tobacco use and exposure Smokeless tobacco non-user [facility] Work Phone: Start: 04-08-2022 End: 10-27-2022 Tobacco Comment smoked 1 pack a week for a month [facility] Start: 03-29-2022 End: 07-21-2022 Exposure to SARS-CoV-2 (event) Not sure [facility] Start: 04-28-2022 End: 07-10-2022 Exposure to SARS-CoV-2 (event) Unable to assess [facility] Work Phone: History of tobacco use Current smoker [facility] Work Phone: Start: 01-14-2023 End: 03-01-2023 History of Social function [facility] Start: 01-14-2023 End: 03-01-2023 Tobacco use panel [facility] Adult Depression Screening Assessment 0 [facility] Medical Equipment Procedure Code Equipment Code Equipment Origin al Text Equipment Identifier Dates Start: 01-26-2020 End: 02-25-2022 Goals Date Patient Goal Desired Activity /State Personal health goal Personal health goal Clinical Notes 05-28-2006 to 09-27-2023 Telephone Encounter - Char Martinez LPN - 09/27/2023 2:24 PM ESTTelephone Encounter - Ninfa Alvarado - 09/27/2023 11:16 AM ESTTelephone Encounter - Charla Edwarsd LPN - 08/23/2023 2:27 PM EST Note Date & Type Note Facility 09-27-2023 Miscellaneous Notes Patient has been identified by name and date of : Yes Patient phones for refill(s): Requested Prescriptions Pending Prescriptions Disp Refills metFORMIN ER (GLUMETZA) 500 mg 24 hr tablet Sig: Take 1 tablet by mouth once daily. Date of last office visit in primary care: 07/28/2023 Date of next office visit in primary care: Visit date not found Last 2 Encounter Wt Readings: Date: Wt: 07/28/2023 76.2 kg (168 lb) 01/08/2023 86.6 kg (191 lb) Previous labs/tests for medication: Diabetes: Hemoglobin A1C (%) Date Value 10/27/2022 7.1 06/27/2022 6.6 09/19/2021 7.5 02/06/2021 6.2 Please advise. Thank you. Char Martinez LPN. Patient has been identified by name and date of : Yes Requested Prescriptions Pending Prescriptions Disp Refills metFORMIN ER (GLUMETZA) 500 mg 24 hr tablet Sig: Take 1 tablet by mouth once daily. RX INSTRUCTIONS: Patient aware RX will be sent to pharmacy. No need to notify patient. Ninfa Alvarado documented in this encounter [facility] 08-23-2023 Miscellaneous Notes Patient notified of providers message and verbalized understanding. Blood sugars have come down to around 150. She will continue with the Pedialyte for now and will call with an update in 1 week sooner if blood sugar is above 300 1) Could she switch to Glucerna instead of Pedialyte for nutrition and fluid intake? 2) If needs to keep taking Pedialyte and sugars sta up, can increase metformin to 2 pills once daily. Log of sugars with times of day in 1 week. Call sooner if sugars go over 300. Patient calling said she has been drinking Pedilyte 8 oz glass every day past several days and her blood sugar has been going up. Patient said yesterday her fasting blood sugar was 274, today fasting blood sugar was 264. Patient said her sugars were alright before that, she is taking the Metformin. Patient using [facility] for her pharmacy if needed. Please advise documented in this encounter [facility] 08-17-2023 Miscellaneous Notes Cindy/ Nai nurse aware of Provider recommendations and follow up. Aware to have patient or her son call clinic and schedule follow up appointment. Laura Sifuentes LPN As long as BP is good and patient clinically is stable, does not need to go to ER for heart rate below 50. If patient still taking atenolol 25 mg daily, stop the medication and monitor BP and HR. If BP going over 130/90 or HR going over 90, would adjust meds and/or have her see cardiology. Can follow up with me in the next 1 to 2 weeks. Notified nurse, Laura, who is agreeable to ask pcp to advise. Cindy- Nai [facility]- reports patient with HR 38-55 since she has been at her home (arrived at 4). Reports patient does not drink enough fluids, but starting drinking more as nurses talked. HR on POX increased to 55. Patient is asymptomatic- stating she feels fine and does not want to go to ER. Protocol recommends see provider in 4 hours. Asking pcp to advise. Really sounds like patient needs a medication adjustment? Please phone Cindy with reply: [phone] Reason for Disposition Taking water pill (i.e., diuretic) or heart medication (e.g., digoxin) Answer Assessment - Initial Assessment Questions 1. DESCRIPTION: [facility] nurse phoned to report patients HR is 38-55 Regular rhythm with murmur. 2. ONSET: Nurse arrived at 4 pm. 3. DURATION: Reports patient having problems with low HR off/on for a while. Doctor prescribed atenolol 25 mg daily. Enalapril 10 mg daily. Lasix 20 mg daily. HCTZ 25 mg daily. 4. PATTERN Low HR comes and goes. Reports [facility] visits starting Aug 03, got readings of 58, 62, 63, 61, 68, 59, 78, 72. BP today 110/70. POX 97. R 16. T 98.4- all today. 5. TAP: N/A 6. HEART RATE: See above. 7. RECURRENT SYMPTOM: Yes. Yesterday 114/82. Wednesday 114/64. 112/64. 108/76. 8. CAUSE: No palpitations recently. 9. CARDIAC HISTORY: A-fib. Aortic valve insuff. HI-10 years ago. Never had angioplasty. 10. OTHER SYMPTOMS: Patient reports she feels fine. No pain. Ocassional SOB when up moving around. No CP. No edema. No sweating. Ocassional dizziness when up. Patient trying to get enough fluids. Drinks 2 1/2 bottles a day- pushing to increase to 3 or 4. 11. : N/A Protocols used: Heart Rate and Heartbeat [id number] documented in this encounter [facility] 08-02-2023 Miscellaneous Notes Labs faxed to [facility]. Laura Sifuentes LPN Noted BPs were okay and noted HR in 60s. Will see how she does on lower dose ateholol. Filed labs orders t be printed to fax to [facility]. Spoke to Cindy ABDULLAHI concerning Provider questions. Recent BP/HR 07/27/23 118/74 64 07/21/23 124/74 65 07/20/23 112/80 67 07/19/23 124/78 65 07/16/23 108/60 66 07/14/23 132/74 60 07/07/23 114/72 60 Cindy aware of Atenolol being changed sergei daily from bid. Medications updated in Epic. HH able to draw labs, has not had any drawn for HH. Laura Sifuentes LPN documented in this encounter [facility] 07-28-2023 Note HNO ID: [id number] Author: Oumar Hassan MD Service: ? Author Type: Physician Type: Progress Notes Filed: 08/05/2023 4:45 PM Note Text: This note was created using Netatmoriter. Subjective Loni Galdamez is a 78 year old female. Patient presents with: F/U 6 months SUBJECTIVE: Loni Galdamez is a 78 year old year old lady here today for 6 month follow up appointment for review of medical conditions. Got rid of bed bugs while was in hospital and rehab at [facility]. Was out of her home for 2 months or so. SW at [facility] got her home treated twice while was gone. States that lost money, etc. at hospital. Lost $2000, ID, credit cards, etc. Resumed her atenolol twice daily even though was stopped at [facility] since was worried about heart. Heart rate was low at hospital but states med held for just a few days then resumed. States not much appetite so not eating much. Did have some meatloaf, fish. Drinking some fluids--milk, 7-up, water. Does have HHN. 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 atorvastatin (LIPITOR) 40 mg tablet Take 1 tablet by mouth once daily. blood sugar diagnostic (BLOOD GLUCOSE TEST) test strip Test blood sugar(s) 3 times daily. Dx: Type 2 DM - Uncontrolled E11.65 Insulin: Yes Blood-Glucose Meter (BLOOD GLUCOSE MONITORING) monitoring kit Use to check blood sugar 3 times daily as directed. clopidogrel (PLAVIX) 75 mg tablet Take 1 tablet by mouth once daily. clopidogrel (PLAVIX) 75 mg tablet Take 1 tablet by mouth once daily. donepezil (ARICEPT) 5 mg tablet Take 1 tablet by mouth daily at bedtime. enalapril (VASOTEC) 10 mg tablet Take 1 tablet by mouth every morning AND 1 tablet every evening. furosemide (LASIX) 20 mg tablet Take 1 tablet by mouth once daily. hydroCHLOROthiazide 25 mg tablet Take 1 tablet by mouth once daily. insulin glargine (LANTUS SOLOSTAR, BASAGLAR KWIKPEN) 100 unit/mL (3 mL) Inject 20 Units subcutaneously as directed. PATIENT ASSISTANCE [facility]. (Patient not taking: Reported on 07/28/2023) Insulin [place], Disposable, (BD ULTRA-FINE KELBY PEN NEEDLE) 32 gauge x 5/32 Inject Basaglar once daily as directed Lancets (ACCU-CHEK SOFTCLIX LANCETS) lancets Test blood sugar(s) 3 daily. Dx: 250.00. Insulin: Yes metFORMIN ER (GLUMETZA) 500 mg 24 hr tablet Take 1 tablet by mouth once daily. Miscellaneous Medical Supply Patient requires a ramp to be able to get in and out of her home with use of a walker or wheelchair. nitroglycerin sublingual (NITROQUICK) 0.4 mg SL tablet DISSOLVE ONE(1) TABLET UNDER THE TOUNGUE NEEDED FOR CHEST PAIN,EVERY [address] (PROTONIX) 40 mg tablet Take 1 tablet by mouth once daily. polyethylene glycol 3350 (MIRALAX) 17 gram/dose powder Take 17 g by mouth once daily. Current Facility-Administered Medications Medication Dose Route Frequency perflutren lipid microspheres 1.3 mL in NaCl (PF) 0.9% 10 mL injection (DEFINITY) INTRAVENOUS DIRECTED PRN sodium chloride 0.9 % (flush) 10 mL (BD POSIFLUSH) 10 mL INTRAVENOUS DIRECTED PRN Review of Systems Objective BP 122/62 Pulse (!) 40 Temp (!) 35.9 ?C (96.7 ?F) Resp 18 Wt 76.2 kg (168 lb) SpO2 98% BMI 32.81 kg/m? Physical Exam Constitutional: Appearance: Normal appearance. She is obese. HENT: Head: Normocephalic. Eyes: Conjunctiva/sclera: Conjunctivae normal. Cardiovascular: Rate and Rhythm: Normal rate and regular rhythm. Heart sounds: Normal heart sounds. Pulmonary: Effort: Pulmonary effort is normal. Breath sounds: Normal breath sounds. Skin: General: Skin is warm and dry. Comments: very dry skin with scaling on legs Neurological: General: No focal deficit present. Mental Status: She is alert and oriented to person, place, and time. Psychiatric: Mood and Affect: Mood normal. Behavior: Behavior normal. Thought Content: Thought content normal. Judgment: Judgment normal. Reviewed records from hospitalization. Assessment and Plan Encounter Diagnosis ICD-10-CM 1. 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 Continue present management 2. (more content not included)... [facility] 07-28-2023 Instructions Oumar Hassan MD - 07/28/2023 5:18 PM EDT Decrease atenolol to 25 mg once daily. If get lightheaded or BP gets too low under 100, then stop atenolol documented in this encounter [facility] 07-28-2023 History of Presen t illness Narrative This note was created using Netatmoriter. Subjective Loni Galdamez is a 78 year old female. Patient presents with: F/U 6 months SUBJECTIVE: Loni Galdamez is a 78 year old year old lady here today for 6 month follow up appointment for review of medical conditions. Got rid of bed bugs while was in hospital and rehab at [facility]. Was out of her home for 2 months or so. SW at [facility] got her home treated twice while was gone. States that lost money, etc. at hospital. Lost $2000, ID, credit cards, etc. Resumed her atenolol twice daily even though was stopped at [facility] since was worried about heart. Heart rate was low at hospital but states med held for just a few days then resumed. States not much appetite so not eating much. Did have some meatloaf, fish. Drinking some fluids--milk, 7-up, water. Does have HHN. 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 atorvastatin (LIPITOR) 40 mg tablet Take 1 tablet by mouth once daily. blood sugar diagnostic (BLOOD GLUCOSE TEST) test strip Test blood sugar(s) 3 times daily. Dx: Type 2 DM - Uncontrolled E11.65 Insulin: Yes Blood-Glucose Meter (BLOOD GLUCOSE MONITORING) monitoring kit Use to check blood sugar 3 times daily as directed. clopidogrel (PLAVIX) 75 mg tablet Take 1 tablet by mouth once daily. clopidogrel (PLAVIX) 75 mg tablet Take 1 tablet by mouth once daily. donepezil (ARICEPT) 5 mg tablet Take 1 tablet by mouth daily at bedtime. enalapril (VASOTEC) 10 mg tablet Take 1 tablet by mouth every morning AND 1 tablet every evening. furosemide (LASIX) 20 mg tablet Take 1 tablet by mouth once daily. hydroCHLOROthiazide 25 mg tablet Take 1 tablet by mouth once daily. insulin glargine (LANTUS SOLOSTAR, BASAGLAR KWIKPEN) 100 unit/mL (3 mL) Inject 20 Units subcutaneously as directed. PATIENT ASSISTANCE [facility]. (Patient not taking: Reported on 07/28/2023) Insulin [place], Disposable, (BD ULTRA-FINE KELBY PEN NEEDLE) 32 gauge x Inject Basaglar once daily as directed Lancets (ACCU-CHEK SOFTCLIX LANCETS) lancets Test blood sugar(s) 3 daily. Dx: 250.00. Insulin: Yes metFORMIN ER (GLUMETZA) 500 mg 24 hr tablet Take 1 tablet by mouth once daily. Miscellaneous Medical Supply Patient requires a ramp to be able to get in and out of her home with use of a walker or wheelchair. nitroglycerin sublingual (NITROQUICK) 0.4 mg SL tablet DISSOLVE ONE(1) TABLET UNDER THE TOUNGUE NEEDED FOR CHEST PAIN,EVERY [address] (PROTONIX) 40 mg tablet Take 1 tablet by mouth once daily. polyethylene glycol 3350 (MIRALAX) 17 gram/dose powder Take 17 g by mouth once daily. Current Facility-Administered Medications Medication Dose Route Frequency perflutren lipid microspheres 1.3 mL in NaCl (PF) 0.9% 10 mL injection (DEFINITY) INTRAVENOUS DIRECTED PRN sodium chloride 0.9 % (flush) 10 mL (BD POSIFLUSH) 10 mL INTRAVENOUS DIRECTED PRN Review of Systems Objective BP 122/62 Pulse (!) 40 Temp (!) 35.9 C (96.7 F) Resp 18 Wt 76.2 kg (168 lb) SpO2 98% BMI 32.81 kg/m Physical Exam Constitutional: Appearance: Normal appearance. She is obese. HENT: Head: Normocephalic. Eyes: Conjunctiva/sclera: Conjunctivae normal. Cardiovascular: Rate and Rhythm: Normal rate and regular rhythm. Heart sounds: Normal heart sounds. Pulmonary: Effort: Pulmonary effort is normal. Breath sounds: Normal breath sounds. Skin: General: Skin is warm and dry. Comments: very dry skin with scaling on legs Neurological: General: No focal deficit present. Mental Status: She is alert and oriented to person, place, and time. Psychiatric: Mood and Affect: Mood normal. Behavior: Behavior normal. Thought Content: Thought content normal. Judgment: Judgment normal. Reviewed records from hospitalization. Assessment and Plan Encounter Diagnosis ICD-10-CM 1. 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 Continue present management 2. Bradycardia R00.1 Will verify med doses and monitor HR at home Adjust dose down as indicated 3. Primary hypertension I10 Well controlled. Continue present management 4. Mixed hyperlipidemia E78.2 Follow up on labs and adjust dose of statin as indicated 5. Moderate dementia without behavioral disturbance, psychotic disturbance, mood disturbance, or anxiety, unspecified dementia type (HCC) F03.B0 Has support with Home Health at this time. 6. Encounter for immunization Z23 INFLUENZA VACCINE, PRSV FREE, AGE 65+ YR, HIGH DOSE, QUADRIVALENT (FLUZONE HIGH-DOSE) 7. Paroxysmal atrial fibrillation (HCC) I48.0 Noted on hospital records. Monitor and adjust treatment as indicated 8. Stage 3b chronic kidney disease (HCC) N18.32 Above issues addressed with patient. Long appointment to review medications and she has been doing since was in the hospital then rehab before getting home. Appears to be doing fairly well with support from nurse and aides. Patient involved in shared decision making for management of medical issues. History and medications reviewed. Epic updated as needed Refills and/or prescriptions taken care of and meds adjusted as indicated after reviewed history, exam and labs. Health Maintenance reviewed. Updated record and/or ordered tests as recorded. Encouraged on efforts at healthy diet and regular exercise and adequate sleep. Follow up on labs drawn through N. Further evaluation and treatment as indicated. Encouraged to drink enough water daily to maintain hydration. Needs to avoid adjusting, stopping or starting meds on her own. Noted had resumed beta sherita after got home from [facility] even thought she knows it was stopped due to bradycardia. She feels okay and denies problems with symptoms of bradycardia. Monitor HR and BP through nurse and monitor medications. Further evaluation and treatment as indicated. Given dementia issues, needs support from nurse and aides to stay at home. I spent a total of 83 minutes on the date of the service which included [id number] patient care, completing clinical documentation, obtaining and/or reviewing separately obtained history, performing a medically appropriate examination, counseling and educating the patient/family/caregiver, ordering medications, tests, or procedures, independently interpreting results (not separately reported), and communicating results to the patient/family/caregiver. Oumar Hassan MD documented in this encounter [facility] 07-23-2023 Miscellaneous Notes Signed order faxed to number provided and Sierra CARRIZALES from [facility] updated. Laura Sifuentes LPN Patient's request for medication is as follows: Requested Prescriptions Signed Prescriptions Disp Refills Miscellaneous Medical Supply 1 Each 0 Sig: Patient requires a ramp to be able to get in and out of her home with use of a walker or wheelchair. Authorizing Provider: OUMAR HASSAN Prescription(s) printed as above. Please process accordingly. TC to Sierra, agrees with ramp order, asking for the printed RX to be faxed to below number, then [facility] will decide if they will fund. Char Martinez LPN See if RX is okay as written then print for me to sign Sierra CARRIZALES [facility] called in and reports she is trying to get transportation set up for the Pt to get to her appointment with provider on 07/28/23 with PCP. She states Pt is going to need a prescription for a ramp to be built for her house as Pt uses a wheelchair or a walker and there are stairs to get into her house. She states they are going through the [facility], through the [facility] and they will not give assistance without a prescription. She reports provider can fax it to them before the appointment to fax # [phone]. I let her know that sometimes the provider has to have the office visit before they can send a prescription in. documented in this encounter [facility] 2023 Miscellaneous Notes Monique at [facility] aware of same. Ok to return call and let them know that yes, we will follow for [facility] orders. Yani from [facility] calls and states that patient was discharged from [facility] on 06/26/2023 with the diagnosis of debility, failure to thrive, and hypoglycemia. Yani asking if provider willing to follow patient with orders for prison, occupational therapy, physical therapy, and social work. If agreeable please give Yani a call back [phone]. Thank you, Belle Sanchez RN documented in this encounter [facility] 02-11-2023 Miscellaneous Notes Patient notified of results and provider's instructions. Patient verbalizes understanding. Elizabeth Segura LPN From pcp. Note that labs never popped into results to address since no signs of labs being doned or addressed with patient. Not sure [facility] Her Cr was higher than usual. Should encourage patient to stay hydrated (though with her dementia, that may be difficult) and get labs repeated. She has / appointment with Dr. Cifuentes, so will have BMP ordered so she may do labs while there for that appointment documented in this encounter [facility] 02-01-2023 Miscellaneous Notes Pt changing rx to mail service pharmacy. Patient has been identified by name and date of : Yes, Provider Dr. Hassan Date 02/01/23 Time 9:40 am Pharmacy phones for refill(s): Requested Prescriptions Pending Prescriptions Disp Refills pantoprazole DR (PROTONIX) 40 mg tablet 90 tablet 3 Sig: Take 1 tablet by mouth once daily. Date of last office visit in primary care: 01/08/23 next apt 04/09/23 Last 2 Encounter Wt Readings: Date: Wt: 01/08/2023 86.6 kg (191 lb) 10/27/2022 89.4 kg (197 lb) Previous labs/tests for medication: Not applicable Thank you. Ninfa Aldana LPN documented in this encounter [facility] 01-26-2023 Miscellaneous Notes Kristy, if she calls back and you feel PCP team needs to address her increased difficulty taking care of her self we can move up her upcoming appt Sw left message for patient to return Sw call to discuss social service programs such as caregiver support program through [employer]. Sw can speak with patient regarding [employer] in regards to Caregiver Support Program. This program is for those over Medicaid income. Can assist with home assessment nurse, home delivered meals, medical alert button. There is typically a wait list. AAA would complete a home visit to assess and see if patient meets requirements. In regards to bed bugs. Unfortunately, there are not programs that help with cost of solar field installation crew member. There are resources that help with tips for cleaning your home. Patient seen in echo today. Reports difficulty taking care of herself. Further reports bed bug infestation in home and inability to get rid of them. Note sent to SW for help on available resources if any. Also sent to PCP for FYI. documented in this encounter [facility] 01-14-2023 Note HNO ID: [id number] Author: Gurpreet Bar Service: ? Author Type: Physician Type: Progress Notes Filed: 01/14/2023 11:33 AM Note Text: Last saw Dr. Hassan: 01/08/23 Subjective: Patient presents to clinic c/o painful toenails. They state that the nails are especially painful with shoe gear and pressure. Patient states that nails right hallux are painful. Patient admits to being diabetic. No other pedal complaints at this time. Patient states no change in medications or medical history since last visit. Objective: Patient presents to clinic ambulating in [facility] Vasc: DP and PT pulses are palpable bilateral. CFT is less than 5 seconds bilateral. Skin temperature is warm to cool proximal to distal bilateral. There is mild edema or varicosities noted. Neuro: Protective sensation is intact to the foot and toes when tested with the 5.07 SWM bilateral. Vibratory sensation is absent at the hallux IPJ bilateral. The hallux is downgoing bilateral. Derm: Nails 1-5 b/l are painful, discolored-yellow, thick, crumbly, dystrophic and with subungal debris. Skin is of normal turgor, texture and hair growth is present bilateral. There are no hyperkeratosis, ulcerations, scars, verruca or other lesions noted. Ortho: Muscle strength is 5/5 for all pedal groups tested. Ankle joint DF is full with the knee extended with no pain or crepitus noted. 1st MPJ ROM is full bilateral. Atrophy of fat pad is noted b/l forefoot. 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 Nails 1-5 bilateral were debrided in length and thickness. Small bleed to right hallux lateral nail border. Band aide applied. Discussed use of gel inserts for atrophy of fat pad Patient was instructed on the continued importance of diabetic foot care along with proper diet and keeping their blood sugar under control to prevent complications. Patient is to RTC in 3-4 months. Gurpreet Bar DPM [facility] 01-14-2023 Note HNO ID: [id number] Author: Rayne Painter RN Service: ? Author Type: ? Type: Progress Notes Filed: 01/14/2023 11:33 AM Note Text: AMB ROOMING INTAKE FLOWSHEET DATA Patient presents with: Left Foot - Established Patient, Debridement of Nail Right Foot - Established Patient, Debridement of Nail Patient is due for a diabetic foot exam. [facility] 01-14-2023 History of Presen t illness Narrative Last saw Dr. Hassan: 01/08/23 Subjective: Patient presents to clinic c/o painful toenails. They state that the nails are especially painful with shoe gear and pressure. Patient states that nails right hallux are painful. Patient admits to being diabetic. No other pedal complaints at this time. Patient states no change in medications or medical history since last visit. Objective: Patient presents to clinic ambulating in [place] Vasc: DP and PT pulses are palpable bilateral. CFT is less than 5 seconds bilateral. Skin temperature is warm to cool proximal to distal bilateral. There is mild edema or varicosities noted. Neuro: Protective sensation is intact to the foot and toes when tested with the 5.07 SWM bilateral. Vibratory sensation is absent at the hallux IPJ bilateral. The hallux is downgoing bilateral. Derm: Nails 1-5 b/l are painful, discolored-yellow, thick, crumbly, dystrophic and with subungal debris. Skin is of normal turgor, texture and hair growth is present bilateral. There are no hyperkeratosis, ulcerations, scars, verruca or other lesions noted. Ortho: Muscle strength is 5/5 for all pedal groups tested. Ankle joint DF is full with the knee extended with no pain or crepitus noted. 1st MPJ ROM is full bilateral. Atrophy of fat pad is noted b/l forefoot. Assessment: (B35.1) Onychomycosis (primary encounter diagnosis) (M79.675) Pain in toe of left foot (M79.674) Pain in toe of right foot (E11.49) Type 2 diabetes mellitus with neurological manifestations ([facility]) Plan: Patient was seen and evaluated. Nails 1-5 bilateral were debrided in length and thickness. Small bleed to right hallux lateral nail border. Band aide applied. Discussed use of gel inserts for atrophy of fat pad Patient was instructed on the continued importance of diabetic foot care along with proper diet and keeping their blood sugar under control to prevent complications. Patient is to RTC in 3-4 months. Gurpreet Bar DPM AMB ROOMING INTAKE FLOWSHEET DATA Patient presents with: Left Foot - Established Patient, Debridement of Nail Right Foot - Established Patient, Debridement of Nail Patient is due for a diabetic foot exam. documented in this encounter [facility] 01-14-2023 Instructions Gurpreet Bar - 01/14/2023 11:22 AM EDT Diabetes Foot Care Instructions When you have diabetes, proper foot care is very important. Poor foot care may lead to amputation of a foot or leg. As a person with diabetes, you are more vulnerable to foot problems, because diabetes can damage your nerves and reduce blood flow to your feet. Here are some diabetes foot care tips to follow: Wash and Dry Your Feet Daily Use mild soaps Use warm water Pat your skin dry; do not rub. Thoroughly dry your feet. After washing, use lotion on your feet to prevent cracking. Do not put lotion between your toes. Examine Your Feet Each Day Check the tops and bottoms of your feet. Have someone else look at your feet if you cannot see them. Check for dry, cracked skin. Look for blisters, cuts, scratches, or other sores. Check for redness, increased warmth, or tenderness when touching any area of your feet. Check for ingrown toenails, corns, and calluses. If you get a blister or sore from your shoes, do not pop it. Apply a bandage and wear a different pair of shoes. Take Care of Your Toenails Cut toenails after bathing, when they are soft. Cut toenails straight across and smooth with a nail file. Avoid cutting into the corners of toes. Do not cut cuticles. If you have neuropathy (or decreased sensation in your feet) a precision mechanical instrument maker should always cut your toenails. Be Careful When Exercising Walk and exercise in comfortable shoes. Do not exercise when you have open sores on your feet. Protect Your Feet With Shoes and Socks Never go barefoot. Always protect your feet by wearing shoes or hard-soled slippers or footwear. Avoid shoes with high heels and pointed toes. Avoid shoes that expose your toes or heels (such as open-toed shoes or sandals). These types of shoes increase your risk for injury and potential infections. Try on new footwear with the type of socks you usually wear. Do not wear new shoes for more than an hour at a time. Change your socks daily. Look and feel inside your shoes before putting them on to make sure there are no foreign objects or rough areas. Avoid tight socks. Wear natural-fiber socks (cotton, wool, or a cotton-wool blend). Wear special shoes if your health care provider recommends them. Wear shoes/boots that will protect your feet from various weather conditions (cold, moisture, etc.). Make sure your shoes fit properly. If you have neuropathy (nerve damage), you may not notice that your shoes are too tight. Perform the footwear test described below. Footwear Test Use this simple test to see if your shoes fit correctly: Stand on a piece of paper. (Make sure you are standing and not sitting, because your foot changes shape when you stand.) Trace the outline of your foot. Trace the outline of your shoe. Compare the tracings: Is the shoe too narrow? Is your foot crammed into the shoe? The shoe should be at least 1/2 inch longer than your longest toe and as wide as your foot. Proper Shoe Choices The following types of shoes are best for people with diabetes Closed toes and heels Leather uppers without a seam inside At least 1/2 inch extra space at the end of your longest toe Inside of shoe should be soft with no rough areas Outer sole should be made of stiff material Shoes should be at least as wide as your feet Tips for Foot Care in Diabetes Don't wait to treat a minor foot problem if you have diabetes. Follow your health care provider's guidelines and first aid guidelines. Report foot injuries and infections to your health care provider immediately. Check water temperature with your elbow, not your foot. Do not use a heating pad on your feet. Do not cross your legs. Do not self-treat your corns, calluses, or other foot problems. Go to your health care provider or precision mechanical instrument maker to treat these conditions. documented in this encounter [facility] 01-08-2023 Note HNO ID: [id number] Author: Oumar Hassan MD Service: ? Author Type: Physician Type: Progress Notes Filed: 02/08/2023 1:15 AM Note Text: This note was created using Netatmoriter. Subjective Loni Galdamez is a 77 year old female. Patient presents with: Established Patient: Follow up SUBJECTIVE: Loni Galdamez is a 77 year old year old lady here today for follow up appointment for review of medical conditions. BM just every 4 days even with dulcolax stool softener 2 in AM and laxative at night. Started 2 years ago. Sometimes things hurt. Always has shard stools. Ran out of Dulcolax pills so not taking the past 2 weeks. Bowels still just moving every 4 days. Right leg swelling same per patient. 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 enalapril (VASOTEC) 10 mg tablet Take 1 tablet by mouth every morning AND 1 tablet every evening. clopidogrel (PLAVIX) 75 mg tablet Take 1 tablet by mouth once daily. furosemide (LASIX) 20 mg tablet Take 1 tablet by mouth once daily. atenolol (TENORMIN) 25 mg tablet Take 1 tablet by mouth twice daily. atorvastatin (LIPITOR) 40 mg tablet Take 1 tablet by mouth once daily. donepezil (ARICEPT) 5 mg tablet Take 1 tablet by mouth daily at bedtime. insulin glargine (LANTUS SOLOSTAR, BASAGLAR KWIKPEN) 100 unit/mL (3 mL) Inject 20 Units subcutaneously as directed. PATIENT ASSISTANCE [facility]. Insulin [place], Disposable, (BD ULTRA-FINE KELBY PEN NEEDLE) 32 gauge x 5/32 Inject Basaglar once daily as directed nitroglycerin sublingual (NITROQUICK) 0.4 mg SL tablet DISSOLVE ONE(1) TABLET UNDER THE TOUNGUE NEEDED FOR CHEST PAIN,EVERY 5 MIN X3 Blood-Glucose Meter (BLOOD GLUCOSE MONITORING) monitoring kit Use to check blood sugar 3 times daily as directed. Lancets (ACCU-CHEK SOFTCLIX LANCETS) lancets Test blood sugar(s) 3 daily. Dx: 250.00. Insulin: Yes blood sugar diagnostic (BLOOD GLUCOSE TEST) test strip Test blood sugar(s) 3 times daily. Dx: Type 2 DM - Uncontrolled E11.65 Insulin: Yes pantoprazole DR (PROTONIX) 40 mg tablet Take 1 tablet by mouth once daily. (Patient not taking: Reported on 01/08/2023) furosemide (LASIX) 20 mg tablet Take 1 tablet by mouth once daily. (Patient not taking: Reported on 01/08/2023) No current facility-administered medications for this visit. Review of Systems Objective BP 132/68 Pulse (!) 43 Temp 36.6 ?C (97.8 ?F) Resp 18 Wt 86.6 kg (191 lb) SpO2 100% BMI 37.30 kg/m? Physical Exam Constitutional: Appearance: Normal appearance. HENT: Head: Normocephalic. Eyes: Conjunctiva/sclera: Conjunctivae normal. Cardiovascular: Rate and Rhythm: Normal rate and regular rhythm. Heart sounds: Murmur heard. Systolic murmur is present with a grade of 3/6. Pulmonary: Effort: Pulmonary effort is normal. Breath sounds: Normal breath sounds. Musculoskeletal: Right lower leg: Edema present. Left lower leg: No edema. Skin: General: Skin is warm and dry. Neurological: General: No focal deficit present. Mental Status: She is alert and oriented to person, place, and time. Psychiatric: Mood and Affect: Mood normal. Behavior: Behavior normal. Thought Content: Thought content normal. Judgment: Judgment normal. Assessment and Plan Encounter Diagnosis ICD-10-CM 1. 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 Primary hypertension I10 CBC COMP METABOLIC PANEL 3. Mixed hyperlipidemia E78.2 LIPID PANEL, NONFASTING 4. Anemia, unspecified type D64.9 CBC 5. Aortic valve stenosis, etiology of cardiac valve disease unspecified I35.0 ECHO perflutren lipid microspheres 1.3 mL in NaCl (PF) 0.9% 10 mL injection (DEFINITY) sodium chloride 0.9 % (flush) 10 mL (BD POSIFLUSH) 6. 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 Financial difficulty Z59.9 8. Moderate dementia without behavioral disturbance, psychotic disturbance, mood disturbance, or anxiety, unspecified dementia type (HCC) F03. (more content not included)... [facility] 01-08-2023 Instructions Oumar Hassan MD - 01/08/2023 12:16 PM EDT Miralax might not be covered but is available over the counter. Stay off Dulcolax for now since was not really helping anyway. Can add back stool softener if needed. Laxative should be used just once in a while, not every day. Get more walking in and that will help with bowels and strength. documented in this encounter [facility] 01-08-2023 History of Presen t illness Narrative This note was created using Netatmor[employer]. Subjective Loni Galdamez is a 77 year old female. Patient presents with: Established Patient: Follow up SUBJECTIVE: Loni Galdamez is a 77 year old year old lady here today for follow up appointment for review of medical conditions. BM just every 4 days even with dulcolax stool softener 2 in AM and laxative at night. Started 2 years ago. Sometimes things hurt. Always has shard stools. Ran out of Dulcolax pills so not taking the past 2 weeks. Bowels still just moving every 4 days. Right leg swelling same per patient. 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 enalapril (VASOTEC) 10 mg tablet Take 1 tablet by mouth every morning AND 1 tablet every evening. clopidogrel (PLAVIX) 75 mg tablet Take 1 tablet by mouth once daily. furosemide (LASIX) 20 mg tablet Take 1 tablet by mouth once daily. atenolol (TENORMIN) 25 mg tablet Take 1 tablet by mouth twice daily. atorvastatin (LIPITOR) 40 mg tablet Take 1 tablet by mouth once daily. donepezil (ARICEPT) 5 mg tablet Take 1 tablet by mouth daily at bedtime. insulin glargine (LANTUS SOLOSTAR, BASAGLAR KWIKPEN) 100 unit/mL (3 mL) Inject 20 Units subcutaneously as directed. PATIENT ASSISTANCE [facility]. Insulin [place], Disposable, (BD ULTRA-FINE KELBY PEN NEEDLE) 32 gauge x 5/32 Inject Basaglar once daily as directed nitroglycerin sublingual (NITROQUICK) 0.4 mg SL tablet DISSOLVE ONE(1) TABLET UNDER THE TOUNGUE NEEDED FOR CHEST PAIN,EVERY 5 MIN X3 Blood-Glucose Meter (BLOOD GLUCOSE MONITORING) monitoring kit Use to check blood sugar 3 times daily as directed. Lancets (ACCU-CHEK SOFTCLIX LANCETS) lancets Test blood sugar(s) 3 daily. Dx: 250.00. Insulin: Yes blood sugar diagnostic (BLOOD GLUCOSE TEST) test strip Test blood sugar(s) 3 times daily. Dx: Type 2 DM - Uncontrolled E11.65 Insulin: Yes pantoprazole DR (PROTONIX) 40 mg tablet Take 1 tablet by mouth once daily. (Patient not taking: Reported on 01/08/2023) furosemide (LASIX) 20 mg tablet Take 1 tablet by mouth once daily. (Patient not taking: Reported on 01/08/2023) No current facility-administered medications for this visit. Review of Systems Objective BP 132/68 Pulse (!) 43 Temp 36.6 C (97.8 F) Resp 18 Wt 86.6 kg (191 lb) SpO2 100% BMI 37.30 kg/m Physical Exam Constitutional: Appearance: Normal appearance. HENT: Head: Normocephalic. Eyes: Conjunctiva/sclera: Conjunctivae normal. Cardiovascular: Rate and Rhythm: Normal rate and regular rhythm. Heart sounds: Murmur heard. Systolic murmur is present with a grade of 3/6. Pulmonary: Effort: Pulmonary effort is normal. Breath sounds: Normal breath sounds. Musculoskeletal: Right lower leg: Edema present. Left lower leg: No edema. Skin: General: Skin is warm and dry. Neurological: General: No focal deficit present. Mental Status: She is alert and oriented to person, place, and time. Psychiatric: Mood and Affect: Mood normal. Behavior: Behavior normal. Thought Content: Thought content normal. Judgment: Judgment normal. Assessment and Plan Encounter Diagnosis ICD-10-CM 1. 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 Primary hypertension I10 CBC COMP METABOLIC PANEL 3. Mixed hyperlipidemia E78.2 LIPID PANEL, NONFASTING 4. Anemia, unspecified type D64.9 CBC 5. Aortic valve stenosis, etiology of cardiac valve disease unspecified I35.0 ECHO perflutren lipid microspheres 1.3 mL in NaCl (PF) 0.9% 10 mL injection (DEFINITY) sodium chloride 0.9 % (flush) 10 mL (BD POSIFLUSH) 6. 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 Financial difficulty Z59.9 8. Moderate dementia without behavioral disturbance, psychotic disturbance, mood disturbance, or anxiety, unspecified dementia type (HCC) F03.B0 Above issues addressed with patient. Patient involved in shared decision making for management of medical issues. History and medications reviewed. Epic updated as needed Refills and/or prescriptions taken care of and meds adjusted as indicated after reviewed history, exam and labs. Health Maintenance reviewed. Updated record and/or ordered tests as recorded. Encouraged on efforts at healthy diet and regular exercise and adequate sleep. Further evaluation and treatment as indicated. Not able to treat bedbug infestation due to financial difficulties. Oumar Hassan MD documented in this encounter [facility] 12-22-2022 Miscellaneous Notes Rec'd fax from [employer] [id number]. Pt does meet program eligibility requirements and is enrolled in [employer] until the end of 2022. documented in this encounter [facility] 12-03-2022 Note HNO ID: [id number] Author: Charla Hernandez LPN Service: ? Author Type: ? Type: Progress Notes Filed: 12/04/2022 8:15 AM Note Text: [employer] form was signed by Jerrica and faxed. [facility] 12-03-2022 History of Presen t illness Narrative [employer] form was signed by Jerrica and faxed. Patient and son stopped to see Sw to complete [employer] application for basaglar. Patient notes that she did receive letter that her application had on 10/17/22 and she needed to complete new application. Patient completed her portion of application and signed consent for release form for [employer]. Sw will take forms to [employer] for her to complete basaglar prescription completion. Patient also noted that she was working with [employer] rep and director career services as she had received boxes of an old insulin that she used to take but no longer takes. Patient notes that [employer] rep had told her that she would send labels to send back medication. Patient notes that she never received labels and through insulin away. Patient reports that now she has received a bill for the insulin that they sent her that was from an old prescription. Sw and patient discussed that patient has nurse from [employer] that comes to see her once a year. Patient notes that she will reach out to the nurse to see what she needs to do regarding bill for insulin. documented in this encounter [facility] 12-03-2022 Note HNO ID: [id number] Author: MARGARITO Zuñiga Service: ? Author Type: Fulfillment Specialist Type: Progress Notes Filed: 12/04/2022 8:15 AM Note Text: Patient and son stopped to see Sw to complete [employer] application for basaglar. Patient notes that she did receive letter that her application had on 10/17/22 and she needed to complete new application. Patient completed her portion of application and signed consent for release form for [employer]. Sw will take forms to [employer] for her to complete basaglar prescription completion. Patient also noted that she was working with [employer] rep and director career services as she had received boxes of an old insulin that she used to take but no longer takes. Patient notes that [employer] rep had told her that she would send labels to send back medication. Patient notes that she never received labels and through insulin away. Patient reports that now she has received a bill for the insulin that they sent her that was from an old prescription. Sw and patient discussed that patient has nurse from [employer] that comes to see her once a year. Patient notes that she will reach out to the nurse to see what she needs to do regarding bill for insulin. [facility] 12-02-2022 Miscellaneous Notes Sw spoke with patient regarding [employer] application. Patient states that she has not filled out new [employer] application this year for her andrea. Sw made appt for tomorrow 12/03/22 @noon. Patient and son will bring in their income statements to write income out on forms. documented in this encounter [facility] 11-03-2022 Miscellaneous Notes TC made advising of below. Order to [facility] for transfusion. follow up in another encounter, will close this She is very anemic and needs transfusion [address] [facility]. Should complete FOBT and schedule appt with Dr Suarez if has not already done so to further evaluate cause of anemia (EGD/colonoscopy likely needed). Resume protonix, rx sent to pharmacy. Component Latest Ref Rng & Units 06/27/2022 10/27/2022 WBC 3.70 - 11.00 k/uL 9.23 8.07 RBC 3.90 - 5.20 m/uL 3.28 (L) 3.40 (L) Hemoglobin 11.5 - 15.5 g/dL 8.8 (L) 7.2 (L) Hematocrit 36.0 - 46.0 % 29.1 (L) 25.1 (L) MCV 80.0 - 100.0 fL 88.7 73.8 (L) MCH 26.0 - 34.0 pg 26.8 21.2 (L) MCHC 30.5 - 36.0 g/dL 30.2 (L) 28.7 (L) RDW-CV 11.5 - 15.0 % 15.7 (H) 19.2 (H) Platelet Count 150 - 400 k/uL 317 379 MPV 9.0 - 12.7 fL 11.2 10.1 Neut% % 79.0 Abs Neut (ANC) 1.45 - 7.50 k/uL 6.38 Lymph% % 10.8 Abs Lymph 1.00 - 4.00 k/uL 0.87 (L) [place]% % 6.3 Abs [place] <0.87 k/uL 0.51 Eosin% % 3.1 Abs Eosin <0.46 k/uL 0.25 Baso% % 0.4 Abs Baso <0.11 k/uL 0.03 Immature Gran % % 0.4 IMMATURE GRANS (ABS) <0.10 k/uL 0.03 NRBC /100 WBC 0.0 Absolute nRBC <0.01 k/uL <0.01 <0.01 DTYPE Auto Protein, Total 6.3 - 8.0 g/dL 7.1 7.2 Albumin 3.9 - 4.9 g/dL 3.6 (L) 3.6 (L) Calcium 8.5 - 10.2 mg/dL 9.8 9.8 Bilirubin, Total 0.2 - 1.3 mg/dL 0.4 0.8 Alkaline Phosphatase 34 - 123 U/L 138 (H) 151 (H) AST 13 - 35 U/L 21 21 ALT 7 - 38 U/L 11 13 Glucose 74 - 99 mg/dL 180 (H) 154 (H) BUN 7 - 21 mg/dL 41 (H) 26 (H) Creatinine 0.58 - 0.96 mg/dL 1.31 (H) 1.03 (H) Sodium 136 - 144 mmol/L 136 133 (L) Potassium 3.7 - 5.1 mmol/L 4.7 4.0 Chloride 97 - 105 mmol/L 101 96 (L) CO2 22 - 30 mmol/L 26 28 Anion Gap 9 - 18 mmol/L 9 9 eGFR >=60 mL/min/1.73m 42 (L) 56 (L) Total Cholesterol, Nonfasting <200 mg/dL 108 Triglycerides, Nonfasting <150 mg/dL 50 HDL Cholesterol, Nonfasting >39 mg/dL 54 LDL Cholesterol, Nonfasting <100 mg/dL 44 Non HDL Cholesterol, Nonfasting <130 mg/dL 54 VLDL Cholesterol, Nonfasting <30 mg/dL 10 Total Chol/HDL Ratio, Nonfasting <5.10 mg/dL 2.00 LDL/HDL Ratio, Nonfasting <2.54 mg/dL 0.81 Hemoglobin A1C 4.3 - 5.6 % 6.6 (H) 7.1 (H) Estimated Average Glucose mg/dL 143 157 documented in this encounter [facility] 11-02-2022 Miscellaneous Notes Last office visit: 10/27/22 Next appointment scheduled: 12/29/22 Last labs: 10/27/22 Patient has been identified by name and date of : Yes Requested Prescriptions Pending Prescriptions Disp Refills hydroCHLOROthiazide (HYDRODIURIL, ESIDRIX) 25 mg tablet 90 tablet 3 Sig: Take 1 tablet by mouth once daily. enalapril (VASOTEC) 10 mg tablet 270 tablet 3 Sig: Take 1 tablet by mouth every morning AND 1 tablet every evening. clopidogrel (PLAVIX) 75 mg tablet 90 tablet 3 Sig: Take 1 tablet by mouth once daily. furosemide (LASIX) 20 mg tablet 90 tablet 3 Sig: Take 1 tablet by mouth once daily. atenolol (TENORMIN) 25 mg tablet 180 tablet 3 Sig: Take 1 tablet by mouth twice daily. atorvastatin (LIPITOR) 40 mg tablet 90 tablet 3 Sig: Take 1 tablet by mouth once daily. donepezil (ARICEPT) 5 mg tablet 90 tablet 3 Sig: Take 1 tablet by mouth daily at bedtime. RX INSTRUCTIONS: Patient aware RX will be sent to pharmacy. No need to notify patient. [facility] documented in this encounter [facility] 10-29-2022 Miscellaneous Notes Patient contact per provider to let her know that her recent lab work showed H/H 7.2/25.1 and she will need to get a blood transfusion to bring her numbers back up. Patient was instructed to go to [facility] central registration on Wednesday to get type and/or crossmatch and then will be need to come back on for the transfusion. Outpatient infusion should contact her with time. Patient verbalized understanding. Form with labs faxed to [facility] outpatient infusion. documented in this encounter [facility] 10-27-2022 Note HNO ID: [id number] Author: Jerrica Quintanilla APRN.CUSTOMER OPERATIONS MANAGER Service: ? Author Type: Nurse Specialist Type: Progress Notes Filed: 10/27/2022 4:39 PM Note Text: SUBJECTIVE: COVID-19 VACCINE(1) Never done DTAP,TDAP,TD(1 - Tdap) Never done SHINGRIX VACCINE(1 of 2) Never done DILATED RETINAL EXAM due on 01/26/2019 URINE ALBUMIN:CREATININE RATIO due on 02/06/2022 DIABETIC FOOT EXAM due on 02/17/2022 INFLUENZA(1) due on 06/18/2022 ADVANCE DIRECTIVE DISCUSSION Never done HPI Loni Galdamez is a 75 year old female. PMH significant for ACTIVE PROBLEM LIST Essential Hypertension Hyperlipidemia Esophageal Reflux Generalized Osteoarthrosis, Unspecified Site Osteoporosis, Unspecified AORTIC INSUFFICIENCY Unspecified Sleep Apnea Unspecified Cardiovascular Disease Urinary Incontinence Anxiety State, Unspecified Depressive Disorder, Not Elsewhere Classified History of Cva (Cerebrovascular Accident) Muscle Weakness Abnormality of Gait Type 2 Diabetes Mellitus With Neurological Manifestations (Hcc) Dementia (Hcc) Urge and Stress Incontinence Obesity (Bmi 35.0-39.9 Without Comorbidity) Screening for Ischemic Heart Disease 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 Son is in lobby. Was following with Alina Roque PharmD for diabetes mellitus. Currently with good control. Notes indicate need for appt with Dr. Suarez. Seen or scheduled appt: notes Reconciliation Accountant: no Cryptographic Vulnerability Analyst: Dr. Gupta [facility] DIABETES MELLITUS: Without report of excessive thirst or increased frequency of urination, chest pain or dyspnea , numbness, tingling or pain in extremities, new or unusual visual symptoms, low sugar/hypoglycemic reactions, weight loss/gain, lightheadedness/dizziness and bowel changes/loose stools. Patient's last HgA1C was Hemoglobin A1C (%) Date Value 06/27/2022 6.6 09/19/2021 7.5 02/06/2021 6.2 ) HTN: Notes shortness of breath otherwise no report of headache, chest pain, palpitations, dyspnea, peripheral edema, orthopnea, fatigue and PND. Last 14 Encounter BP Readings: Date: BP: 10/27/2022 130/60 06/27/2022 102/62 09/19/2021 132/80 03/03/2021 128/74 02/11/2021 170/70 01/27/2021 181/64 07/29/2020 117/49 07/15/2020 195/72 06/12/2020 136/47 06/03/2020 162/62 06/03/2020 192/66 10/17/2019 178/70 04/14/2019 153/67[TruBP average[ 12/16/2018 132/68 Notes she is not having GERD or heartburn recently, has changed her diet. No longer taking H2 sherita or PPI, feels she dose not need it. No report of N/V/D/BRBPR. Chronic constipation, takes dulcolax or other OTC which is effective. No current BRBPR or black or tarry stools reported. Aortic stenosis, Notes shortness of breath on exertion, a bit more than baseline recently. No report of CP or syncope. Review of Systems Constitutional: Negative. Respiratory: Positive for shortness of breath. Cardiovascular: Positive for leg swelling. Endocrine: Negative. Objective BP 130/60 Pulse 96 Resp 16 Wt 89.4 kg (197 lb) SpO2 (!) 43% BMI 38.47 kg/m? Physical Exam Vitals and nursing note reviewed. Constitutional: General: She is not in acute distress. Appearance: Normal appearance. She is obese. She is not ill-appearing, toxic-appearing or diaphoretic. HENT: Head: Atraumatic. Eyes: Conjunctiva/sclera: Conjunctivae normal. Neck: Thyroid: No thyromegaly or thyroid tenderness. Vascular: No carotid bruit. Cardiovascular: Rate and Rhythm: Normal rate and regular rhythm. Pulses: Carotid pulses are 2+ on the right side and 2+ on the left side. Heart sounds: Murmur heard. Systolic murmur is present with a grade of 3/6. No friction rub. No gallop. No S4 sounds. Pulmonary: Effort: Pulmonary effort is normal. Breath sounds: Normal breath sounds. Abdominal: General: Bowel sounds are normal. Palpations: Abdomen is soft. Musculoskeletal: Right lower leg: No edema. Left lower leg: No edema. Feet: Right foot: Toenail Condition: Right toenails are abnormally thick and long. Fungal disease present. Left foot: Toenail Condition: Left toenails are abnormally thick and long. Fungal disease present. Skin: General: Skin is warm and dry. Neurological: Mental Status: She is alert. Mental status is at baseline. BP 130/60 Pulse 96 Resp 16 Wt 89.4 kg (197 lb) SpO2 (!) 43% BMI 38.47 kg/m? ALLERGIES Allergen Reactions Trulicity [Dulaglut* Swelling itching and swelling of lips on days she takes Trulicity Medication atenolol (TENORMIN) 25 mg tablet Take 1 tablet by mouth twice daily. donepezil (ARICEPT) 5 mg tablet Take 1 tablet by mouth daily at bedtime. furosemide (LASIX) 20 mg tablet Take 1 tablet by mouth once daily. furosemide (LASIX) 20 mg tablet Take 1 tablet by mouth once daily. Insulin [place], Disposable, (BD ULTRA-FINE KELBY PEN NEEDLE) 32 gauge x 5/32 Inject Basaglar once daily (more content not included)... [facility] 10-27-2022 Instructions Jerrica Quintanilla APRN.CNS - 10/27/2022 11:47 AM EST Make appt with Dr. Suarez regarding anemia. Make an appointment with Dr Cifuentes to follow up aortic stenosis documented in this encounter [facility] 10-27-2022 History of Presen t illness Narrative SUBJECTIVE: COVID-19 VACCINE(1) Never done DTAP,TDAP,TD(1 - Tdap) Never done SHINGRIX VACCINE(1 of 2) Never done DILATED RETINAL EXAM due on 01/26/2019 URINE ALBUMIN:CREATININE RATIO due on 02/06/2022 DIABETIC FOOT EXAM due on 02/17/2022 INFLUENZA(1) due on 06/18/2022 ADVANCE DIRECTIVE DISCUSSION Never done HPI Loni Galdamez is a 75 year old female. PMH significant for ACTIVE PROBLEM LIST Essential Hypertension Hyperlipidemia Esophageal Reflux Generalized Osteoarthrosis, Unspecified Site Osteoporosis, Unspecified AORTIC INSUFFICIENCY Unspecified Sleep Apnea Unspecified Cardiovascular Disease Urinary Incontinence Anxiety State, Unspecified Depressive Disorder, Not Elsewhere Classified History of Cva (Cerebrovascular Accident) Muscle Weakness Abnormality of Gait Type 2 Diabetes Mellitus With Neurological Manifestations (Hcc) Dementia (Hcc) Urge and Stress Incontinence Obesity (Bmi 35.0-39.9 Without Comorbidity) Screening for Ischemic Heart Disease 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 Son is in lobby. Was following with Alina Roque PharmD for diabetes mellitus. Currently with good control. Notes indicate need for appt with Dr. Suarez. Seen or scheduled appt: notes Reconciliation Accountant: no Cryptographic Vulnerability Analyst: Dr. Gupta [facility] DIABETES MELLITUS: Without report of excessive thirst or increased frequency of urination, chest pain or dyspnea , numbness, tingling or pain in extremities, new or unusual visual symptoms, low sugar/hypoglycemic reactions, weight loss/gain, lightheadedness/dizziness and bowel changes/loose stools. Patient's last HgA1C was Hemoglobin A1C (%) Date Value 06/27/2022 6.6 09/19/2021 7.5 02/06/2021 6.2 ) HTN: Notes shortness of breath otherwise no report of headache, chest pain, palpitations, dyspnea, peripheral edema, orthopnea, fatigue and PND. Last 14 Encounter BP Readings: Date: BP: 10/27/2022 130/60 06/27/2022 102/62 09/19/2021 132/80 03/03/2021 128/74 02/11/2021 170/70 01/27/2021 181/64 07/29/2020 117/49 07/15/2020 195/72 06/12/2020 136/47 06/03/2020 162/62 06/03/2020 192/66 10/17/2019 178/70 04/14/2019 153/67[TruBP average[ 12/16/2018 132/68 Notes she is not having GERD or heartburn recently, has changed her diet. No longer taking H2 sherita or PPI, feels she dose not need it. No report of N/V/D/BRBPR. Chronic constipation, takes dulcolax or other OTC which is effective. No current BRBPR or black or tarry stools reported. Aortic stenosis, Notes shortness of breath on exertion, a bit more than baseline recently. No report of CP or syncope. Review of Systems Constitutional: Negative. Respiratory: Positive for shortness of breath. Cardiovascular: Positive for leg swelling. Endocrine: Negative. Objective BP 130/60 Pulse 96 Resp 16 Wt 89.4 kg (197 lb) SpO2 (!) 43% BMI 38.47 kg/m Physical Exam Vitals and nursing note reviewed. Constitutional: General: She is not in acute distress. Appearance: Normal appearance. She is obese. She is not ill-appearing, toxic-appearing or diaphoretic. HENT: Head: Atraumatic. Eyes: Conjunctiva/sclera: Conjunctivae normal. Neck: Thyroid: No thyromegaly or thyroid tenderness. Vascular: No carotid bruit. Cardiovascular: Rate and Rhythm: Normal rate and regular rhythm. Pulses: Carotid pulses are 2+ on the right side and 2+ on the left side. Heart sounds: Murmur heard. Systolic murmur is present with a grade of 3/6. No friction rub. No gallop. No S4 sounds. Pulmonary: Effort: Pulmonary effort is normal. Breath sounds: Normal breath sounds. Abdominal: General: Bowel sounds are normal. Palpations: Abdomen is soft. Musculoskeletal: Right lower leg: No edema. Left lower leg: No edema. Feet: Right foot: Toenail Condition: Right toenails are abnormally thick and long. Fungal disease present. Left foot: Toenail Condition: Left toenails are abnormally thick and long. Fungal disease present. Skin: General: Skin is warm and dry. Neurological: Mental Status: She is alert. Mental status is at baseline. BP 130/60 Pulse 96 Resp 16 Wt 89.4 kg (197 lb) SpO2 (!) 43% BMI 38.47 kg/m ALLERGIES Allergen Reactions Trulicity [Dulaglut* Swelling itching and swelling of lips on days she takes Trulicity Medication atenolol (TENORMIN) 25 mg tablet Take 1 tablet by mouth twice daily. donepezil (ARICEPT) 5 mg tablet Take 1 tablet by mouth daily at bedtime. furosemide (LASIX) 20 mg tablet Take 1 tablet by mouth once daily. furosemide (LASIX) 20 mg tablet Take 1 tablet by mouth once daily. Insulin [place], Disposable, (BD ULTRA-FINE KELBY PEN NEEDLE) 32 gauge x Inject Basaglar once daily as directed nitroglycerin sublingual (NITROQUICK) 0.4 mg SL tablet DISSOLVE ONE(1) TABLET UNDER THE TOUNGUE NEEDED FOR CHEST PAIN,EVERY 5 MIN X3 clopidogrel (PLAVIX) 75 mg tablet Take 1 tablet by mouth once daily. enalapril (VASOTEC) 10 mg tablet Take 1 tablet by mouth every morning AND 1 tablet every evening. hydroCHLOROthiazide (HYDRODIURIL, ESIDRIX) 25 mg tablet Take 1 tablet by mouth once daily. atorvastatin (LIPITOR) 40 mg tablet Take 1 tablet by mouth once daily. Blood-Glucose Meter (BLOOD GLUCOSE MONITORING) monitoring kit Use to check blood sugar 3 times daily as directed. Lancets (ACCU-CHEK SOFTCLIX LANCETS) lancets Test blood sugar(s) 3 daily. Dx: 250.00. Insulin: Yes blood sugar diagnostic (BLOOD GLUCOSE TEST) test strip Test blood sugar(s) 3 times daily. Dx: Type 2 DM - Uncontrolled E11.65 Insulin: Yes insulin glargine (LANTUS SOLOSTAR, BASAGLAR KWIKPEN) 100 unit/mL (3 mL) Inject 20 Units subcutaneously as directed. PATIENT ASSISTANCE [facility]. 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) 08/18/2005 Type II or unspecified type diabetes mellitus with neurological manifestations, uncontrolled(250.62) 07/28/2005 Type II or unspecified type diabetes mellitus without mention of complication, uncontrolled Unspecified sleep apnea Urinary incontinence Stress and urge Social History Tobacco Use Smoking status: Former Types: Cigarettes Smokeless tobacco: Never Tobacco comments: smoked 1 pack a week for a month Substance Use Topics Alcohol use: No Drug use: No Component Latest Ref Rng & Units 02/06/2021 09/19/2021 06/27/2022 Protein, Total 6.3 - 8.0 g/dL 7.9 7.5 7.1 Albumin 3.9 - 4.9 g/dL 4.4 3.9 3.6 (L) Calcium 8.5 - 10.2 mg/dL 10.2 10.0 9.8 Bilirubin, Total 0.2 - 1.3 mg/dL 0.9 0.6 0.4 Alkaline Phosphatase 34 - 123 U/L 123 132 (H) 138 (H) AST 13 - 35 U/L 21 26 21 Glucose 74 - 99 mg/dL 96 84 180 (H) BUN 7 - 21 mg/dL 24 (H) 36 (H) 41 (H) Creatinine 0.58 - 0.96 mg/dL 0.95 1.10 (H) 1.31 (H) Sodium 136 - 144 mmol/L 138 136 136 Potassium 3.7 - 5.1 mmol/L 3.7 4.3 4.7 Chloride 97 - 105 mmol/L 99 96 (L) 101 CO2 22 - 30 mmol/L 29 28 26 Anion Gap 9 - 18 mmol/L 10 12 9 ALT 7 - 38 U/L 11 9 11 eGFR- >60 58 eGFR-All Other Races . 57 48 eGFR >=60 mL/min/1.73m 42 (L) WBC 3.70 - 11.00 k/uL 6.62 9.23 RBC 3.90 - 5.20 m/uL 3.55 (L) 3.28 (L) Hemoglobin 11.5 - 15.5 g/dL 9.3 (L) 8.8 (L) Hematocrit 36.0 - 46.0 % 31.6 (L) 29.1 (L) MCV 80.0 - 100.0 fL 89.0 88.7 MCH 26.0 - 34.0 pg 26.2 26.8 MCHC 30.5 - 36.0 g/dL 29.4 (L) 30.2 (L) RDW-CV 11.5 - 15.0 % 17.9 (H) 15.7 (H) Platelet Count 150 - 400 k/uL 292 317 MPV 9.0 - 12.7 fL 10.7 11.2 Absolute nRBC <0.01 k/uL <0.01 <0.01 Cholesterol, Total <200 mg/dL 136 138 Triglyceride <150 mg/dL 59 65 HDL Cholesterol >39 mg/dL 76 65 LDL Cholesterol <100 mg/dL 48 60 Non HDL Cholesterol <130 mg/dL 60 73 Fasting Time hrs 12 12 VLDL Cholesterol <30 mg/dL 12 13 TC:HDL Ratio <5.10 1.79 2.12 LDL:HDL Ratio <2.54 0.63 0.92 Total Cholesterol, Nonfasting <200 mg/dL 108 Triglycerides, Nonfasting <150 mg/dL 50 HDL Cholesterol, Nonfasting >39 mg/dL 54 LDL Cholesterol, Nonfasting <100 mg/dL 44 Non HDL Cholesterol, Nonfasting <130 mg/dL 54 VLDL Cholesterol, Nonfasting <30 mg/dL 10 Total Chol/HDL Ratio, Nonfasting <5.10 mg/dL 2.00 LDL/HDL Ratio, Nonfasting <2.54 mg/dL 0.81 Creatinine, Ur Random (UCRR) 20 - 300 mg/dL 17.9 (L) Albumin, Urine Random mg/L 15.5 Albumin/Creat Ratio <30 mg/g 87 (H) Hemoglobin A1C 4.3 - 5.6 % 6.2 (H) 7.5 (H) 6.6 (H) Estimated Average Glucose mg/dL 131 169 143 ASSESSMENT/PLAN: 1. Encounter for immunization - ICD9: V03.89, ICD10: Z23 (primary diagnosis) - INFLUENZA SEASONAL QUADRIVALENT HIGH DOSE AGE 65+ 2. Need for shingles vaccine - ICD9: V04.89, ICD10: Z23 3. Screening for diabetic retinopathy - ICD9: V80.2, ICD10: Z13.5 - CONSULT TO OPHTHALMOLOGY 4. 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 - CONSULT TO OPHTHALMOLOGY - ALBUMIN/CREAT RATIO RND UR - COMP METABOLIC PANEL - CBC + DIFF - HGB A1C - LIPID PANEL BASIC - COMP METABOLIC PANEL 5. Primary hypertension - ICD9: 401.9, ICD10: I10 controlled - Continue current medication(s) - Encouraged dietary sodium restriction/DASH diet - Recommended regular aerobic exercise. 6. Mixed hyperlipidemia - ICD9: 272.2, ICD10: E78.2 - COMP METABOLIC PANEL 7. Gastroesophageal reflux disease without esophagitis - ICD9: 530.81, ICD10: K21.9 - COMP METABOLIC PANEL 8. Anemia, unspecified type - ICD9: 285.9, ICD10: D64.9 - CBC + DIFF - FECAL OCCULT BLOOD TEST - CONSULT TO GENERAL SURGERY 9. Elevated liver enzymes - ICD9: 790.5, ICD10: R74.8 - COMP METABOLIC PANEL Make appt with Dr. Suarez regarding anemia. Make an appointment with Dr Cifuentes to follow up aortic stenosis CMP and CBC today Routine DM labs December follow up visit December with Oumar Hassan MD or DARWIN Casillas APRN.CNS Medical Decision Making: Problems: Moderate: 2+ stable chronic illnesses Data: Unique test(s) ordered: 3+ Risk: Moderate: Drug management Medical Decision Making Level: 4 - Moderate documented in this encounter [facility] 07-17-2022 Miscellaneous Notes Care Transition Back to PCP Patient was recently seen by PCP for diabetes care on 06/27/22. Last pharmacy visit with patient: 01/27/21 Our mutual patient, Loni Galdamez, has achieved adequate control of their Diabetes during their care with us. We will not be scheduling further follow up with pharmacy at this time. They have been encouraged to follow up with you for ongoing management. As always, you may refer Loni Galdamez back to pharmacy for management in the future. Next PCP team appointment: 10/27/2022 Thank you for utilizing primary care pharmacy services. Alina Roque RPh documented in this encounter [facility] 06-27-2022 History of Presen t illness Narrative This note was created using [email or web address]. Subjective Loni Galdamez is a 76 year old female. Patient presents with: Follow Up SUBJECTIVE: Loni Galdamez is a 76 year old year old lady here today for follow up appointment for review of medical conditions. Issue with recurrent bed bugs. Has bombed monthly and sprayed weekly. Now still there. Stayed away for a while. Owns her place. Thought was too expensive to pay a professional. $750. Bed bugs the past 5 years. When did not have enough money, had to stop bombing and spraying. Has resumed. Spends over $110 per month. Health Insurance Specialist will not treat unless paid up front. Told has to wash all her clothes and mona nacks. Not able to on her own. Swelling in legs when went a week without water pill. Is getting down now but still hurts from swelling. Has some SOB. Issues with constipation noted. After fell and hurt ribs and hard to cough. Was not moving as much. Still constipated. No longer dizzy since BP better. 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 atenolol (TENORMIN) 25 mg tablet Take 1 tablet by mouth twice daily. donepezil (ARICEPT) 5 mg tablet Take 1 tablet by mouth daily at bedtime. furosemide (LASIX) 20 mg tablet Take 1 tablet by mouth once daily. furosemide (LASIX) 20 mg tablet Take 1 tablet by mouth once daily. Insulin [place], Disposable, (BD ULTRA-FINE KELBY PEN NEEDLE) 32 gauge x /32 Inject Basaglar once daily as directed nitroglycerin sublingual (NITROQUICK) 0.4 mg SL tablet DISSOLVE ONE(1) TABLET UNDER THE TOUNGUE NEEDED FOR CHEST PAIN,EVERY 5 MIN X3 insulin glargine (LANTUS SOLOSTAR, BASAGLAR KWIKPEN) 100 unit/mL (3 mL) Inject 20 Units subcutaneously as directed. PATIENT ASSISTANCE [facility]. clopidogrel (PLAVIX) 75 mg tablet Take 1 tablet by mouth once daily. (Patient not taking: No sig reported) enalapril (VASOTEC) 10 mg tablet Take 1 tablet by mouth every morning AND 1 tablet every evening. hydroCHLOROthiazide (HYDRODIURIL, ESIDRIX) 25 mg tablet Take 1 tablet by mouth once daily. atorvastatin (LIPITOR) 40 mg tablet Take 1 tablet by mouth once daily. Blood-Glucose Meter (BLOOD GLUCOSE MONITORING) monitoring kit Use to check blood sugar 3 times daily as directed. Lancets (ACCU-CHEK SOFTCLIX LANCETS) lancets Test blood sugar(s) 3 daily. Dx: 250.00. Insulin: Yes blood sugar diagnostic (BLOOD GLUCOSE TEST) test strip Test blood sugar(s) 3 times daily. Dx: Type 2 DM - Uncontrolled E11.65 Insulin: Yes No current facility-administered medications for this visit. Review of Systems Objective BP 102/62 Pulse (!) 44 Wt 86.2 kg (190 lb) SpO2 100% BMI 37.11 kg/m Last 5 Encounter Wt Readings: Date: Wt: 06/27/2022 86.2 kg (190 lb) 09/19/2021 88.5 kg (195 lb) 02/11/2021 83 kg (183 lb) 10/17/2019 71.7 kg (158 lb) 04/14/2019 76.7 kg (169 lb) No waist measurement recorded Estimated body mass index is 37.11 kg/m as calculated from the following: Height as of 04/28/18: 152.4 cm (5'). Weight as of this encounter: 86.2 kg (190 lb). Last 5 Encounter BP Readings: Date: BP: 06/27/2022 102/62 09/19/2021 132/80 03/03/2021 128/74 02/11/2021 170/70 01/27/2021 181/64 Physical Exam Constitutional: Appearance: Normal appearance. HENT: Head: Normocephalic. Eyes: Conjunctiva/sclera: Conjunctivae normal. Cardiovascular: Rate and Rhythm: Normal rate and regular rhythm. Heart sounds: Normal heart sounds. Comments: Can see wrinkling of skin from when swelling went down. Still tight swelling in legs. Pulmonary: Effort: Pulmonary effort is normal. Breath sounds: Normal breath sounds. Musculoskeletal: Right lower le+ Edema present. Left lower le+ Edema present. Skin: General: Skin is warm and dry. Neurological: General: No focal deficit present. Mental Status: She is alert and oriented to person, place, and time. Psychiatric: Mood and Affect: Mood normal. Behavior: Behavior normal. Thought Content: Thought content normal. Judgment: Judgment normal. Hemoglobin A1C (%) Date Value 06/27/2022 6.6 09/19/2021 7.5 02/06/2021 6.2 07/29/2020 7.4 03/26/2020 11.2 10/28/2018 10.6 Hemoglobin A1C (POCT) (%) Date Value 10/17/2019 12.3 Assessment and Plan Encounter Diagnosis ICD-10-CM 1. 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 Mixed hyperlipidemia E78.2 LIPID PANEL, NONFASTING 3. Essential hypertension I10 COMP METABOLIC PANEL CBC 4. Moderate dementia without behavioral disturbance, psychotic disturbance, mood disturbance, or anxiety, unspecified dementia type F03.B0 Above issues addressed with patient. Patient involved in shared decision making for management of medical issues. Sugars much better controlled. Continue present meds. Continue close follow up given dementia issues. Stable at this time. Further evaluation and treatment as indicated. History and medications reviewed. Epic updated as needed Refills and/or prescriptions taken care of and meds adjusted as indicated after reviewed history, exam and labs. Health Maintenance reviewed. Updated record and/or ordered tests as recorded. Encouraged on efforts at healthy diet and regular exercise and adequate sleep. Oumar Hassan MD documented in this encounter [facility] 06-02-2022 Miscellaneous Notes Okayed Pt reports she has been without Lasix for about 7 days and she has some swelling to legs. Short term supply sent to [facility]. Patient has been identified by name and date of : Yes Patient phones for refill(s): Requested Prescriptions Pending Prescriptions Disp Refills atenolol (TENORMIN) 25 mg tablet 180 tablet 3 Sig: Take 1 tablet by mouth twice daily. donepezil (ARICEPT) 5 mg tablet 90 tablet 3 Sig: Take 1 tablet by mouth daily at bedtime. furosemide (LASIX) 20 mg tablet 90 tablet 3 Sig: Take 1 tablet by mouth once daily. Date of last office visit in primary care: 09/19/21 Future visit: 07/11/22 Last 2 Encounter Wt Readings: Date: Wt: 09/19/2021 88.5 kg (195 lb) 02/11/2021 83 kg (183 lb) Previous labs/tests for medication: Blood Pressure: BUN (mg/dL) Date Value 09/19/2021 36 Sodium (mmol/L) Date Value 09/19/2021 136 Last 1 Encounter BP Readings: Date: BP: 09/19/2021 132/80 Liver Function: ALT (U/L) Date Value 09/19/2021 9 AST (U/L) Date Value 09/19/2021 26 Please advise. Thank you. Lauryn Serrano RN documented in this encounter [facility] 05-21-2022 History of Presen t illness Narrative Nontoxic-appearing female presents urgent care accompanied by son. Chief complaint nausea shortness of breath fatigue transient chest pain. Patient states she does not feel well. Patient states she has been out of her water pills for the last 4 to 5 days. States she has increasing shortness of breath. With patient's presenting symptoms and medical history I recommended patient be seen in the ED for further evaluation care. EMS transport offered patient declined request states will be seen ED will be transported to ER by her son. Patient verbalized understanding agrees with plan of care. documented in this encounter [facility] 04-08-2022 History of Presen t illness Narrative Subjective: Patient presents to clinic c/o painful toenails. They state that the nails are especially painful with shoe gear and pressure. Patient states that nails 1-5 b/l are painful. Patient also reports that at times, she has pain to the ball of left foot. Patient states has been present for several months. She wonders if this is due to barefoot walking. No other pedal complaints at this time. Patient states no change in medications or medical history since last visit. Objective: Patient presents to clinic ambulating in [facility] Vasc: DP and PT pulses are faint bilateral. CFT is less than 5 seconds bilateral. Skin temperature is warm to cool proximal to distal bilateral. There is moderate edema or varicosities noted. Neuro: Protective sensation is intact to the foot and toes when tested with the 5.07 SWM bilateral. Vibratory sensation is decreased at the hallux IPJ bilateral. The hallux is downgoing bilateral. Derm: Nails 1-5 b/l are painful discolored-yellow, thick, crumbly, dystrophic and with subungal debris. Skin is of normal turgor, texture and hair growth is present bilateral. There are no hyperkeratosis, ulcerations, scars, verruca or other lesions noted. Ortho: Muscle strength is 5/5 for all pedal groups tested. Ankle joint DF is decreased with the knee extended with no pain or crepitus noted. 1st MPJ ROM is decreased bilateral. Atrophy of fat pad of b/l feet. Pain in left 2nd interspace Assessment: (B35.1) Onychomycosis (primary encounter diagnosis) (M79.675) Pain in toe of left foot (M79.674) Pain in toe of right foot (D36.10) Neuroma Plan: Patient was seen and evaluated. Nails 1-5 bilateral were debrided in length and thickness. Small bleed to left foot. Band aide applied. Discussed pain in left foot. Possible neuroma. Recommend gel inserts. If pain continues, consider injection. Patient is to RTC in 3-4 months. Gurpreet Bar DPM AMB ROOMING INTAKE FLOWSHEET DATA Risk Screening Do you have concerns about personal safety or safety in the home?: No Pain Pain Level: 4 Pain Location: Toe Description: Aching Duration Amount of Time: 1 Duration Units: Months Frequency: Intermittent Intervention/Comfort measure: Other: See comment (pt states that she puts rubbing acholol makes pain go away) Patient presents with: Left Foot - Established Patient, Follow Up Right Foot - Established Patient, Follow Up pt she had pain under toes the feels like a takotna. Zeynep Bullock LPN documented in this encounter [facility] 02-25-2022 Miscellaneous Notes AUNDREA: 09/19/2021 Last refill: 06/03/2020 QTY: 100 Refills: 5 Patient's request for medication is as follows: Pending Prescriptions Disp Refills PEN NEEDLE, DIABETIC 32 GAUGE X 5/32 100 Each 5 Sig: Inject Basaglar once daily as directed KARLY: No Please approve the above prescription(s) to electronically send to pharmacy. Carlin Rodriguez Ma .Patient has been identified by name and date of : Yes Pending Prescriptions Disp Refills PEN NEEDLE, DIABETIC 32 GAUGE X 5 100 Each 5 Sig: Inject Basaglar once daily as directed KARLY: No RX INSTRUCTIONS: Pharmacy initiated this request. No need to notify patient. Philly Poon Pss documented in this encounter [facility] 02-14-2022 Miscellaneous Notes Noted The following approved medication requests have been transmitted electronically. Signed Prescriptions Disp Refills nitroglycerin sublingual (NITROQUICK) 0.4 mg SL tablet 1 Bottle of 25 1 Sig: DISSOLVE ONE(1) TABLET UNDER THE TOUNGUE NEEDED FOR CHEST PAIN,EVERY 5 MIN X3 KARLY: No Authorizing Provider: OUMAR HASSAN insulin glargine (LANTUS SOLOSTAR, BASAGLAR KWIKPEN) 100 unit/mL (3 mL) 15 Pen 3 Sig: Inject 20 Units subcutaneously as directed. PATIENT ASSISTANCE [facility]. KARLY: No Authorizing Provider: OUMAR HASSAN clopidogrel (PLAVIX) 75 mg tablet 90 tablet 3 Sig: Take 1 tablet by mouth once daily. KARLY: No Authorizing Provider: OUMAR HASSAN clopidogrel (PLAVIX) 75 mg tablet 7 tablet 0 Sig: Take 1 tablet by mouth once daily. Authorizing Provider: OUMAR HASSAN MD Spoke with pt and she states she spoke with [facility] and they do not have the prescription from 12-09-21. Please send new rx and she will need a short term to local pharmacy for 1 week. TC to patient with no answer. Unable to leave a VM. Please try again later. STEFANI Main She has an active script for plavix for 1 year supply sent to [facility], does she need it ordered again? Does insulin script need to be printed or sent to [facility]? Patient is questioning why she can not take Plavix?? She wanted to order it but is not sure if she should be taking this. Contact patient [phone] Alix Aldana Pss documented in this encounter [facility] documented as of this encounter (statuses as of 02/16/2022) [facility] History of Past illness Narrative* Problem Noted Date Resolved Date Contusion of foot 05/28/2006 12/19/2020 OVERWEIGHT 07/28/2005 12/19/2020 Type II or unspecified type diabetes mellitus with neurological manifestations, uncontrolled(250.62) 07/28/200504/17 documented as of this encounter (statuses as of 02/26/2022) [facility] History of Past illness Narrative* Problem Noted Date Resolved Date Contusion of foot 05/28/2006 12/19/2020 OVERWEIGHT 07/28/2005 12/19/2020 Type II or unspecified type diabetes mellitus with neurological manifestations, uncontrolled(250.62) 07/28/200504/17 documented as of this encounter (statuses as of 04/09/2022) [facility] History of Past illness Narrative* Problem Noted Date Resolved Date Contusion of foot 05/28/2006 12/19/2020 OVERWEIGHT 07/28/2005 12/19/2020 Type II or unspecified type diabetes mellitus with neurological manifestations, uncontrolled(250.62) 07/28/200504/17 documented as of this encounter (statuses as of 05/22/2022) [address] History of Past illness Narrative* Problem Noted Date Resolved Date Contusion of foot 05/28/2006 12/19/2020 OVERWEIGHT 07/28/2005 12/19/2020 Type II or unspecified type diabetes mellitus with neurological manifestations, uncontrolled(250.62) 07/28/200504/17 documented as of this encounter (statuses as of 06/02/2022) [address] History of Past illness Narrative* Problem Noted Date Resolved Date Contusion of foot 05/28/2006 12/19/2020 OVERWEIGHT 07/28/2005 12/19/2020 Type II or unspecified type diabetes mellitus with neurological manifestations, uncontrolled(250.62) 07/28/200504/17 documented as of this encounter (statuses as of 07/17/2022) [address] History of Past illness Narrative* Problem Noted Date Resolved Date Contusion of foot 05/28/2006 12/19/2020 OVERWEIGHT 07/28/2005 12/19/2020 Type II or unspecified type diabetes mellitus with neurological manifestations, uncontrolled(250.62) 07/28/200504/17 documented as of this encounter (statuses as of 08/13/2022) [address] History of Past illness Narrative* Problem Noted Date Resolved Date Contusion of foot 05/28/2006 12/19/2020 OVERWEIGHT 07/28/2005 12/19/2020 Type II or unspecified type diabetes mellitus with neurological manifestations, uncontrolled(250.62) 07/28/200504/17 documented as of this encounter (statuses as of 10/28/2022) [address] History of Past illness Narrative* Problem Noted Date Resolved Date Contusion of foot 05/28/2006 12/19/2020 OVERWEIGHT 07/28/2005 12/19/2020 Type II or unspecified type diabetes mellitus with neurological manifestations, uncontrolled(250.62) 07/28/200504/17 documented as of this encounter (statuses as of 10/29/2022) [address] History of Past illness Narrative* Problem Noted Date Resolved Date Contusion of foot 05/28/2006 12/19/2020 OVERWEIGHT 07/28/2005 12/19/2020 Type II or unspecified type diabetes mellitus with neurological manifestations, uncontrolled(250.62) 07/28/200504/17 documented as of this encounter (statuses as of 11/02/2022) [address]2006 History of Past illness Narrative* Problem Noted Date Resolved Date Contusion of foot 05/28/2006 12/19/2020 OVERWEIGHT 07/28/2005 12/19/2020 Type II or unspecified type diabetes mellitus with neurological manifestations, uncontrolled(250.62) 07/28/200504/17 documented as of this encounter (statuses as of 11/03/2022) [address]11-2006 History of Past illness Narrative* Problem Noted Date Resolved Date Contusion of foot 05/28/2006 12/19/2020 OVERWEIGHT 07/28/2005 12/19/2020 Type II or unspecified type diabetes mellitus with neurological manifestations, uncontrolled(250.62) 07/28/200504/17 documented as of this encounter (statuses as of 12/02/2022) [address]-2006 History of Past illness Narrative* Problem Noted Date Resolved Date Contusion of foot 05/28/2006 12/19/2020 OVERWEIGHT 07/28/2005 12/19/2020 Type II or unspecified type diabetes mellitus with neurological manifestations, uncontrolled(250.62) 07/28/200504/17 documented as of this encounter (statuses as of 12/04/2022) [address]11-2006 History of Past illness Narrative* Problem Noted Date Resolved Date Contusion of foot 05/28/2006 12/19/2020 OVERWEIGHT 07/28/2005 12/19/2020 Type II or unspecified type diabetes mellitus with neurological manifestations, uncontrolled(250.62) 07/28/200504/17 documented as of this encounter (statuses as of 12/23/2022) [address]11-2006 History of Past illness Narrative* Problem Noted Date Resolved Date Contusion of foot 05/28/2006 12/19/2020 OVERWEIGHT 07/28/2005 12/19/2020 Type II or unspecified type diabetes mellitus with neurological manifestations, uncontrolled(250.62) 07/28/200504/17 documented as of this encounter (statuses as of 01/14/2023) [place] [address]2006 History of Past illness Narrative* Problem Noted Date Resolved Date Contusion of foot 05/28/2006 12/19/2020 OVERWEIGHT 07/28/2005 12/19/2020 Type II or unspecified type diabetes mellitus with neurological manifestations, uncontrolled(250.62) 07/28/200504/17 documented as of this encounter (statuses as of 02/01/2023) [address]-2006 History of Past illness Narrative* Problem Noted Date Resolved Date Contusion of foot 05/28/2006 12/19/2020 OVERWEIGHT 07/28/2005 12/19/2020 Type II or unspecified type diabetes mellitus with neurological manifestations, uncontrolled(250.62) 07/28/200504/17 documented as of this encounter (statuses as of 02/08/2023) [address]-2006 History of Past illness Narrative* Problem Noted Date Resolved Date Contusion of foot 05/28/2006 12/19/2020 OVERWEIGHT 07/28/2005 12/19/2020 Type II or unspecified type diabetes mellitus with neurological manifestations, uncontrolled(250.62) 07/28/200504/17 documented as of this encounter (statuses as of 02/11/2023) [address]-2006 History of Past illness Narrative* Problem Noted Date Resolved Date Contusion of foot 05/28/2006 12/19/2020 OVERWEIGHT 07/28/2005 12/19/2020 Type II or unspecified type diabetes mellitus with neurological manifestations, uncontrolled(250.62) 07/28/200504/17 documented as of this encounter (statuses as of 04/08/2023) [address]-2006 History of Past illness Narrative* Problem Noted Date Diagnosed Date Resolved Date Contusion of foot 05/28/2006 12/19/2020 OVERWEIGHT 07/28/2005 12/19/2020 Type II or unspecified type diabetes mellitus with neurological manifestations, uncontrolled(250.62) 07/28/2005 04/28/2013 documented as of this encounter (statuses as of 2023) [address]-2006 History of Past illness Narrative* Problem Noted Date Diagnosed Date Resolved Date Contusion of foot 05/28/2006 12/19/2020 OVERWEIGHT 07/28/2005 12/19/2020 Type II or unspecified type diabetes mellitus with neurological manifestations, uncontrolled(250.62) 07/28/2005 04/28/2013 documented as of this encounter (statuses as of 07/24/2023) [address]-2006 History of Past illness Narrative* Problem Noted Date Diagnosed Date Resolved Date Contusion of foot 05/28/2006 12/19/2020 OVERWEIGHT 07/28/2005 12/19/2020 Type II or unspecified type diabetes mellitus with neurological manifestations, uncontrolled(250.62) 07/28/2005 04/28/2013 documented as of this encounter (statuses as of 08/02/2023) [address]-2006 History of Past illness Narrative* Problem Noted Date Diagnosed Date Resolved Date Contusion of foot 05/28/2006 12/19/2020 OVERWEIGHT 07/28/2005 12/19/2020 Type II or unspecified type diabetes mellitus with neurological manifestations, uncontrolled(250.62) 07/28/2005 04/28/2013 documented as of this encounter (statuses as of 08/05/2023) [address]2006 History of Past illness Narrative* Problem Noted Date Diagnosed Date Resolved Date Contusion of foot 05/28/2006 12/19/2020 OVERWEIGHT 07/28/2005 12/19/2020 Type II or unspecified type diabetes mellitus with neurological manifestations, uncontrolled(250.62) 07/28/2005 04/28/2013 documented as of this encounter (statuses as of 08/18/2023) [address]2006 History of Past illness Narrative* Problem Noted Date Diagnosed Date Resolved Date Contusion of foot 05/28/2006 12/19/2020 OVERWEIGHT 07/28/2005 12/19/2020 Type II or unspecified type diabetes mellitus with neurological manifestations, uncontrolled(250.62) 07/28/2005 04/28/2013 documented as of this encounter (statuses as of 08/24/2023) [address]2006 History of Past illness Narrative* Problem Noted Date Diagnosed Date Resolved Date Contusion of foot 05/28/2006 12/19/2020 OVERWEIGHT 07/28/2005 12/19/2020 Type II or unspecified type diabetes mellitus with neurological manifestations, uncontrolled(250.62) 07/28/2005 04/28/2013 documented as of this encounter (statuses as of 09/28/2023) [facility] note* Diagnosis Onychomycosis- Primary Dermatophytosis of nail Pain in toe of left foot Pain in limb Pain in toe of right foot Pain in limb Neuroma Other benign neoplasm of connective and other soft tissue of unspecified site [facility] Diagnosis Procedure not carried out- Primary Procedure not carried out for other reasons [facility]* Diagnosis 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 Type II or unspecified type diabetes mellitus with neurological manifestations, not stated as uncontrolled Mixed hyperlipidemia Essential hypertension Unspecified essential hypertension Moderate dementia without behavioral disturbance, psychotic disturbance, mood disturbance, or anxiety, unspecified dementia type [facility]* Diagnosis Encounter for immunization- Primary Need for other specified prophylactic vaccination against single bacterial disease Need for shingles vaccine Need for prophylactic vaccination and inoculation against other viral diseases Screening for diabetic retinopathy Screening for other eye conditions 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) Type II or unspecified type diabetes mellitus with neurological manifestations, not stated as uncontrolled Primary hypertension Unspecified essential hypertension Mixed hyperlipidemia Gastroesophageal reflux disease without esophagitis Esophageal reflux Anemia, unspecified type Elevated liver enzymes Other nonspecific abnormal serum enzyme levels documented in this encounter [facility] note* Diagnosis Onychomycosis- Primary Dermatophytosis of nail Pain in toe of left foot Pain in limb Pain in toe of right foot Pain in limb 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) Type II or unspecified type diabetes mellitus with neurological manifestations, not stated as uncontrolled [facility]* Diagnosis 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 Type II or unspecified type diabetes mellitus with neurological manifestations, not stated as uncontrolled Primary hypertension Unspecified essential hypertension Mixed hyperlipidemia Anemia, unspecified type Aortic valve stenosis, etiology of cardiac valve disease unspecified Infestation by bed bug Other specified infestations Financial difficulty Inadequate material resources Moderate dementia without behavioral disturbance, psychotic disturbance, mood disturbance, or anxiety, unspecified dementia type (HCC) Acute renal insufficiency Unspecified disorder of kidney and ureter [facility]* Diagnosis 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 Type II or unspecified type diabetes mellitus with neurological manifestations, not stated as uncontrolled Mixed hyperlipidemia Anemia, unspecified type Encounter for long-term current use of medication [facility]* Diagnosis 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 Type II or unspecified type diabetes mellitus with neurological manifestations, not stated as uncontrolled Bradycardia Other specified cardiac dysrhythmias Primary hypertension Unspecified essential hypertension Mixed hyperlipidemia Moderate dementia without behavioral disturbance, psychotic disturbance, mood disturbance, or anxiety, unspecified dementia type (HCC) Encounter for immunization Need for other specified prophylactic vaccination against single bacterial disease Paroxysmal atrial fibrillation (HCC) Atrial fibrillation Stage 3b chronic kidney disease (HCC) [facility] Outpatient Procedure (Routine) - Authorized Specialty Diagnoses / Procedures Referred By Braeden mcknight Referred [facility] Diagnoses Aortic valve stenosis, etiology of cardiac valve disease unspecified Procedures ECHO ECHO TTHRC R-T 2D W/WOM-MODE COMPL SPEC&COLR D Oumar Hassan MD [address] [place] [address] [facility] [place] [address] [place] [address] Referral ID Status Reason Start Date Expiration Date Visits Requested Visits Authorized [id number] Authorized Auto-Generat ed Referral 01/22/2023 04/22/2023 1 1 * Medication Prior Authorization - Closed Specialty Diagnoses / Procedures Referred By Braeden mcknight Referred To Contact Oumar Hassan MD [facility] [place] [address] Referral ID Status Reason Start Date Expiration Date Visits Re quested Visits Authorized [id number] Closed 1 1 [facility] Advance Directives Documents on File Type Date Recorded Patient Park Interpreter Expl anation Advance Directive(s) Reason for Referral Specialty Diagnoses / Procedures Referred By Braeden mcknight Referred To Contact General Surgery Diagnoses Anemia, unspecified type Procedures CONSULT TO GENERAL SURGERY OFFICE/OUTPATIENT [facility] 60-74 MINUTES QuintanillaJerrica, TOOL INSPECTOR.CUSTOMER OPERATIONS MANAGER [address] [place] [address] Referral ID Status Reason Start Date Expiration Date Visits Requested Visits Authorized [id number] Pending Review PCP Requested Referral 10/27/2022 10/27/2023 1 1 Specialty Diagnoses / Procedures Referred By Braeden mcknight Referred To Contact Ophthalmology Diagnoses Screening for diabetic retinopathy 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) Procedures CONSULT TO OPHTHALMOLOGY OFFICE/OUTPATIENT [facility] 60-74 MINUTES QuintanillaJerrica rascon, TOOL INSPECTOR.CUSTOMER OPERATIONS MANAGER [address] [place] [address] Referral ID Status Reason Start Date Expiration Date Visits Requested Visits Authorized [id number] Pending Review PCP Requested Referral 10/27/2022 10/27/2023 1 1 Specialty Diagnoses / Procedures Referred By Braeden mcknight Referred To Contact Rosangela Cui APRN.STRATEGIC SOLUTIONS CONSULTANT [address] [place] [address] Referral ID Status Reason Start Date Expiration Date V isits Requested Visits Authorized [id number] Pending Review 1 1 Summary Purpose Family History No Family History Records Found Additional Source Comments Source Comments (unrecognize d section and content) In the event this informatio n is protected by the Federal Confidentiality of Alcohol and Drug Abuse Patient Records regulations: The Federal rules restrict any use of the information to criminally investigate or prosecute any alcohol or drug abuse patient.[facility] the event this information is protected by the Federal Confidentiality of Alcohol and Drug Abuse Patient Records regulations: The Federal rules restrict any use of the information to criminally investigate or prosecute any alcohol or drug abuse patient.[facility] the event this information is protected by the Federal Confidentiality of Alcohol and Drug Abuse Patient Records regulations: The Federal rules restrict any use of the information to criminally investigate or prosecute any alcohol or drug abuse patient.[facility] the event this information is protected by the Federal Confidentiality of Alcohol and Drug Abuse Patient Records regulations: The Federal rules restrict any use of the information to criminally investigate or prosecute any alcohol or drug abuse patient.[facility] the event this information is protected by the Federal Confidentiality of Alcohol and Drug Abuse Patient Records regulations: The Federal rules restrict any use of the information to criminally investigate or prosecute any alcohol or drug abuse patient.[facility] the event this information is protected by the Federal Confidentiality of Alcohol and Drug Abuse Patient Records regulations: The Federal rules restrict any use of the information to criminally investigate or prosecute any alcohol or drug abuse patient.[facility] the event this information is protected by the Federal Confidentiality of Alcohol and Drug Abuse Patient Records regulations: The Federal rules restrict any use of the information to criminally investigate or prosecute any alcohol or drug abuse patient.[facility] the event this information is protected by the Federal Confidentiality of Alcohol and Drug Abuse Patient Records regulations: The Federal rules restrict any use of the information to criminally investigate or prosecute any alcohol or drug abuse patient.[facility] the event this information is protected by the Federal Confidentiality of Alcohol and Drug Abuse Patient Records regulations: The Federal rules restrict any use of the information to criminally investigate or prosecute any alcohol or drug abuse patient.[facility] the event this information is protected by the Federal Confidentiality of Alcohol and Drug Abuse Patient Records regulations: The Federal rules restrict any use of the information to criminally investigate or prosecute any alcohol or drug abuse patient.[facility] the event this information is protected by the Federal Confidentiality of Alcohol and Drug Abuse Patient Records regulations: The Federal rules restrict any use of the information to criminally investigate or prosecute any alcohol or drug abuse patient.[facility] the event this information is protected by the Federal Confidentiality of Alcohol and Drug Abuse Patient Records regulations: The Federal rules restrict any use of the information to criminally investigate or prosecute any alcohol or drug abuse patient.[facility] the event this information is protected by the Federal Confidentiality of Alcohol and Drug Abuse Patient Records regulations: The Federal rules restrict any use of the information to criminally investigate or prosecute any alcohol or drug abuse patient.[facility] the event this information is protected by the Federal Confidentiality of Alcohol and Drug Abuse Patient Records regulations: The Federal rules restrict any use of the information to criminally investigate or prosecute any alcohol or drug abuse patient.[facility] the event this information is protected by the Federal Confidentiality of Alcohol and Drug Abuse Patient Records regulations: The Federal rules restrict any use of the information to criminally investigate or prosecute any alcohol or drug abuse patient.[facility] the event this information is protected by the Federal Confidentiality of Alcohol and Drug Abuse Patient Records regulations: The Federal rules restrict any use of the information to criminally investigate or prosecute any alcohol or drug abuse patient.[facility] the event this information is protected by the Federal Confidentiality of Alcohol and Drug Abuse Patient Records regulations: The Federal rules restrict any use of the information to criminally investigate or prosecute any alcohol or drug abuse patient.[facility] the event this information is protected by the Federal Confidentiality of Alcohol and Drug Abuse Patient Records regulations: The Federal rules restrict any use of the information to criminally investigate or prosecute any alcohol or drug abuse patient.[facility] Institute[facility] the event this information is protected by the Federal Confidentiality of Alcohol and Drug Abuse Patient Records regulations: The Federal rules restrict any use of the information to criminally investigate or prosecute any alcohol or drug abuse patient.[facility] Institute[facility] the event this information is protected by the Federal Confidentiality of Alcohol and Drug Abuse Patient Records regulations: The Federal rules restrict any use of the information to criminally investigate or prosecute any alcohol or drug abuse patient.[facility] Institute[facility] the event this information is protected by the Federal Confidentiality of Alcohol and Drug Abuse Patient Records regulations: The Federal rules restrict any use of the information to criminally investigate or prosecute any alcohol or drug abuse patient.[facility] Institute[facility] the event this information is protected by the Federal Confidentiality of Alcohol and Drug Abuse Patient Records regulations: The Federal rules restrict any use of the information to criminally investigate or prosecute any alcohol or drug abuse patient.[facility] Institute[facility] the event this information is protected by the Federal Confidentiality of Alcohol and Drug Abuse Patient Records regulations: The Federal rules restrict any use of the information to criminally investigate or prosecute any alcohol or drug abuse patient.[facility] Institute[facility] the event this information is protected by the Federal Confidentiality of Alcohol and Drug Abuse Patient Records regulations: The Federal rules restrict any use of the information to criminally investigate or prosecute any alcohol or drug abuse patient.[facility] the event this information is protected by the Federal Confidentiality of Alcohol and Drug Abuse Patient Records regulations: The Federal rules restrict any use of the information to criminally investigate or prosecute any alcohol or drug abuse patient.[facility] the event this information is protected by the Federal Confidentiality of Alcohol and Drug Abuse Patient Records regulations: The Federal rules restrict any use of the information to criminally investigate or prosecute any alcohol or drug abuse patient.[facility] Reason for Visit (unrecogniz ed section and content) Reason Onset Date Comments Refill Request 02/25/2022 Reason Comments Established Patient Follow Up Reason Onset Date Comments Refill Request 06/02/2022 Reason Comments Transition Of Care Reason Comments Follow Up Reason Comments Follow Up Reason Comments Results Reason Comments Refill Request New RX's to be sent to [facility] Reason Comments Results Labs, needs transfus ion [facility] Reason Comments prescription assistance Reason Comments approval from [facility] Reason Comments Established Patient Debridement of Nail Reason Onset Date Comments Refill Request 02/01/2023 Reason Comments Established Patient Follow up Reason Comments Patient Update Reason Comments Home Health Orders Reason Comments Patient Update Ramp Prescription Reason Comments Varify patient medications and other inf ormation Reason Comments F/U 6 months Specialty Diagnoses / Procedures Referred By Braeden t Referred To Contact INTERNAL MEDICINE Diagnoses [facility] hospital visit Procedures 4C EST Self 4c [place] [address] [place] [address] Referral ID Status Reason Start Date Expiration Date Visits Requested Visits Authorized [id number] Outside PCP OON/Self Pay Override 07/01/2023 12/28/2023 1 1 Reason Comments Low heart rate Reason Comments blood sugars climbing higher Reason Onset Date Comments Refill Request 09/27/2023 Care Teams (unrecognized sec tion and content) Moving Worker Relationship Specialty Start Date End Date Oumar Hassan MD [address] [place] [address] PCP - General Internal Medicine 09/24/10 [facility] [address] [place] [address] Pharmacist Pharmacy 02/14/20 Moving Worker Relationship Specialty Start Date End Date Oumar Hassan MD [address] [place] [address] PCP - General Internal Medicine 09/24/10 [facility] [address] [place] [address] Pharmacist Pharmacy 02/14/20 Moving Worker Relationship Specialty Start Date End Date Oumar Hassan MD [address] [place] [address] PCP - General Internal Medicine 09/24/10 [facility] [address] [place] [address] Pharmacist Pharmacy 02/14/20 Moving Worker Relationship Specialty Start Date End Date Oumar Hassan MD [address] [place] [address] PCP - General Internal Medicine 09/24/10 RashaunAlina, [facility] [address] [place] [address] Pharmacist Pharmacy 02/14/20 Moving Worker Relationship Specialty Start Date End Date Oumar Hassan MD [address] [place] [address] PCP - General Internal Medicine 09/24/10 Moving Worker Relationship Specialty Start Date End Date Oumar Hassan MD [address] [place] [address] PCP - General Internal Medicine 09/24/10 Alina Roque, [facility] [address] [place] [address] Pharmacist Pharmacy 02/14/20 07/16/22 Moving Worker Relationship Specialty Start Date End Date Oumar Hassan MD [address] [place] [address] PCP - General Internal Medicine 09/24/10 Moving Worker Relationship Specialty Start Date End Date Oumar Hassan MD [address] [place] [id number] PCP - General Internal Medicine 09/24/10 Moving Worker Relationship Specialty Start Date End Date Oumar Hassan MD [address] [place] [address] PCP - General Internal Medicine 09/24/10 Moving Worker Relationship Specialty Start Date End Date Oumar Hassan MD [address] [place] [id number] PCP - General Internal Medicine 09/24/10 Moving Worker Relationship Specialty Start Date End Date Oumar Hassan MD [address] [place] [address] PCP - General Internal Medicine 09/24/10 Moving Worker Relationship Specialty Start Date End Date Oumar Hassan MD [address] [place] [id number] PCP - General Internal Medicine 09/24/10 Moving Worker Relationship Specialty Start Date End Date Oumar Hassan MD [address] [place] [id number] PCP - General Internal Medicine 09/24/10 Moving Worker Relationship Specialty Start Date End Date Oumar Hassan MD [address] [place] [id number] PCP - General Internal Medicine 09/24/10 Moving Worker Relationship Specialty Start Date End Date Oumar Hassan MD [address] [place] [address] PCP - General Internal Medicine 09/24/10 Moving Worker Relationship Specialty Start Date End Date Oumar Hassan MD [address] [place] [address] PCP - General Internal Medicine 09/24/10 Moving Worker Relationship Specialty Start Date End Date Oumar Hassan MD [address] [place] [address] PCP - General Internal Medicine 09/24/10 Moving Worker Relationship Specialty Start Date End Date Oumar Hassan MD [address] [place] [address] PCP - General Internal Medicine 09/24/10 Moving Worker Relationship Specialty Start Date End Date Oumar Hassan MD [address] [place] [address] PCP - General Internal Medicine 09/24/10 Moving Worker Relationship Specialty Start Date End Date Oumar Hassan MD [address] [place] [address] PCP - General Internal Medicine 09/24/10 INFORMATION SOURCE (unrecogn ized section and content) FOR RECORDS PERTAINING TO PATIENTS WHO ARE OR HAVE BEEN ENROLLED IN A CHEMICAL DEPENDENCY/SUBSTANCEABUSE PROGRAM, SOME INFORMATION MAY BE OMITTED. This clinical summary was aggregated from multiple sources. Caution should be exercised in using it in the provision of clinical care. This summary normalizes information from multiple sources, and as a consequence, information in this document may materially change the coding, format and clinical context of patient data. In addition, data may be omitted in some cases. CLINICAL DECISIONS SHOULD BE BASED ON THE PRIMARY CLINICAL RECORDS. [facility]. provides no warranty or guarantee of the accuracy or completeness of information in this document.
[2023-11-02 21:10] LABS: Absolute Lymphocyte Count 0.68 X10^3/uL (0.83-4.51); Absolute Neutrophil Count 10.3 X10^3/uL (2.0-7.7); Basophil# 0.03 X10^3/uL; Basophil% 0.3 % (0-1); Hematocrit 31.3 % (37-47); Hemoglobin 9.5 g/dL (12.0-15.0); Lymphocyte # 0.68 X10^3/ul (0.83-4.51); Lymphocyte % 5.9 % (19-41); Mean Corp Hgb Conc 30.4 g/dL (32-36); Mean Corpuscular Hgb 28.4 pg (27.0-32.0); Mean Corpuscular Volume 93.4 fL (81-99); Mean Platelet Vol. 11.8 fl (6.2-12.0); Monocyte# 0.32 X10^3/uL; Monocyte% 2.8 % (0-10); NRBC Flagged by Analyzer 0 % (0-5); Neutrophil # 10.28 X10^3/uL (2.7-7.7); Neutrophil % 89.9 % (47-70); POSITIVE MORPHOLOGY YES; Platelet Count 319 K/mm3 (150-450); RBC Distribution Width CV 20.4 % (11.6-14.6); RBC Distribution Width SD 69.3 fl (35.1-43.9); Red Blood Count 3.35 M/mm3 (4.2-5.4); White Blood Count 11.4 K/mm3 (4.4-11.0)
[2023-11-02 21:11] LABS: Color, Urine Yellow (Yellow); Glucose, Dipstick 50 mg/dl (Normal); Ketone-Dipstick 5 mg/dl (Negative); Leukocyte Esterase-Dipstick 500 /ul (Negative); Nitrite-Dipstick Negative (Negative); Occult Blood-Urine 10 /ul (Negative); Protein-Dipstick 30 mg/dl (Negative); Urine Bilirubin Dipstick Negative (Negative); Urine Clarity Cloudy (Clear); Urine Urobilinogen Normal (Normal)
[2023-11-02 21:21] LABS: International Normalized Ratio 1.6; Prothrombin Time (Protime)PT. 18.7 SECONDS (11.7-14.9)
[2023-11-02 21:23] LABS: Partial Thromboplast Time 35.8 Seconds (24.1-36.2)
[2023-11-02 21:32] LABS: Differential Indicated SCAN CRITERIA MET
[2023-11-02 21:33] LABS: Anisocytosis 1+; Burr Cells 1+; Hypochromasia 1+; Macrocytosis 1+; Platelet Estimate ADEQUATE (ADEQ); Red Cell Morphology N CHROM NORMAL (NORM C&C)
[2023-11-02 21:34] LABS: Acanthocytes 1+
[2023-11-02] MEDS: Rocuronium Bromide 50 MG/5 ML Vial IV (21:35)
[2023-11-02 21:52] LABS: Hyaline Cast 25-50 SEEN /lpf (0-5); Squamous Epithelial Cells - UA 10-25 SEEN /hpf (5-10); White Blood Cells 25-50 SEEN /hpf (0-5)
[2023-11-02] MEDS: fentaNYL drip 100 ML 5 MCG CONT INF (22:00)
[2023-11-02 22:08] LABS: Base Excess -21 mmol/L (-2 to +2); Bicarbonate 7.3 mmol/L (22-26); Blood Gas Specimen Type ART; Mode AC; O2 Delivery Device Adult Vent; PEEP 5; PO2 235 mmHG (75-100); RR 16; SITE L Fem; SO2 100 % (95-99); Time Given 22:05:04; Total Carbon Dioxide 8 mmol/L; pCO2 19.4 mmHg (35-45); pH 7.18 (7.35-7.45)
--- NOTE | 2023-11-02 22:35 | RAD_ITS ---
EXAM: XR CHEST, 1 VIEW CLINICAL INDICATION: Shortness of Breath, ETT placement NG/OG Tube placement TECHNIQUE: Frontal view of the chest. COMPARISON: June 23, 2023. FINDINGS: LUNGS AND PLEURAL SPACES: Unremarkable. No consolidation or edema. No pneumothorax. No effusion. HEART: Unremarkable. Cardiac silhouette not enlarged. MEDIASTINUM: Central airways and mediastinal contour are unremarkable. BONES/JOINTS: Unremarkable. No acute fracture. SOFT TISSUES: Unremarkable. TUBES, LINES AND DEVICES: Endotracheal tube tip is roughly 9 mm superior to the carinal branching, consider retracting it 1-1.5 cm. Enteric tube tip and side-port in the stomach, tip in the fundus. UPPER ABDOMEN: Cholecystectomy clips. RAD/Chest 1 View (Portable) IMPRESSION: Mildly low endotracheal tube, consider retracting it 1-1.5 cm. Adequately positioned enteric tube. Electronically Signed: Dorothea Jane MD at 23:34 EST ,
--- NOTE | 2023-11-02 22:43 | EX.ED.CRITCA ---
HPI History of Present Illness Chief Complaint: Alt LOC Narrative Narrative: History and physical is limited secondary to patient condition. According to EMS, they were called for mental status change. Upon their arrival, patient was having agonal respirations centrally unresponsive. She may have moved to sternal rub. Blood sugar was checked and was above 100. They state that the son gave her her pills, then checked on her, and she was found to be having agonal respirations and not responsive. They state that her fingertips were cold, so they were getting various reads on the pulse oximetry. They present her for mental status change. [facility] Medical History Afib Anemia Atherosclerotic heart disease of morongo coronary artery without angina pectoris CKD (chronic kidney disease), stage III CVA (cerebral vascular accident) Dementia Essential hypertension GERD (gastroesophageal reflux disease) History of GI bleed Inability to walk Nonrheumatic aortic (valve) insufficiency Old myocardial infarction PAF (paroxysmal atrial fibrillation) Polyneuropathy Type 2 diabetes mellitus Home Medications atorvastatin 40 mg tablet 40 mg PO QDAY 12/01/17 [History Last Taken Unknown] donepezil 5 mg tablet 5 mg PO QHS 12/01/17 [History Last Taken Unknown] clopidogrel 75 mg tablet 75 mg PO QDAY 01/14/18 [History Last Taken Unknown] apixaban 5 mg tablet (Eliquis) 2.5 mg (1/2 x 5 mg) PO BID 30 days #30 tabs 05/10/23 [Rx Last Taken Unknown] acetaminophen 325 mg tablet 650 mg (2 x 325 mg) PO Q4H PRN PRN Fever, pain 1-07/27 #0 tabs 05/18/23 [Rx Last Taken Unknown] pantoprazole 40 mg tablet,delayed release (Protonix) 40 mg PO BID #60 tabs 05/18/23 [Rx Last Taken Unknown] enalapril maleate 10 mg tablet 10 mg PO Q12H 06/24/23 [History Last Taken Unknown] furosemide 20 mg tablet 20 mg PO DAILY 06/24/23 [History Last Taken Unknown] hydrochlorothiazide 25 mg tablet 25 mg PO DAILY 06/24/23 [History Last Taken Unknown] metformin 500 mg tablet,extended release 24 hr 500 mg PO DAILY 90 days #90 tabs 06/26/23 [Rx Last Taken Unknown] Allergy/AdvReac Type Severity Reaction Status Date / Time No Known Allergies Allergy Verified 11/02/23 20:27 Family History Mother Diabetes Son Heart disease Myocardial infarction Daughter Diabetes Daughter Diabetes Surgical History History of breast biopsy History of cardiac catheterization History of cholecystectomy History of colonoscopy (~2010) History of esophagogastroduodenoscopy (EGD) (~2001) Social History household members: children housing: house Smoking Status: Never smoker alcohol intake: never substance use type: does not use caffeine: Yes Type: coffee Number of servings: 4 what type of physical activity do you participate in: none seatbelt use: always do you feel safe at home: Yes ROS ROS ED ROS Narrative Will to obtain secondary to patient condition/current mental status Review of Systems ROS Unobtainable: due to mental status EXAM Physical Exam Narrative Exam Narrative: Afebrile. Vital signs noted. HEENT: Normocephalic. Atraumatic. PERRL, EOMI. Neck soft and supple. No point tenderness or step off. Cardiovascular: Regular rate and rhythm. No murmurs, rubs, or gallops appreciated. Respiratory: Normal respirations. Limited gag reflex. Gastrointestinal: Abdomen soft, nontender, with normoactive bowel sounds. No rebound or guarding. Neurological: GCS 8. Skin: No rash. Normal color. No pallor. Musculoskeletal: No pedal edema. . Const Vital Signs: 11/02/23 20:28 11/02/23 20:48 11/02/23 20:49 Temperature 96.3 F L Temperature Source Temporal Pulse Rate 74 72 Respiratory Rate 16 20 H Blood Pressure 83/25 L Blood Pressure Mean 44 Pulse Ox 100 100 Oxygen Delivery Method Room Air Fraction of Inspired Oxygen (FIO2) 11/02/23 20:55 11/02/23 20:46 11/02/23 21:46 Temperature Temperature Source Pulse Rate 64 69 Respiratory Rate 17 14 Blood Pressure Blood Pressure Mean Pulse Ox 100 100 Oxygen Delivery Method Mechanical Ventilator Fraction of Inspired Oxygen (FIO2) 50 40 11/02/23 21:06 11/02/23 21:30 01/16/24 21:36 Temperature Temperature Source Pulse Rate 75 78 81 Respiratory Rate 16 16 16 Blood Pressure 95/67 112/56 L 118/46 L Blood Pressure Mean 76 74 70 Pulse Ox 100 99 100 Oxygen Delivery Method Mechanical Ventilator Mechanical Ventilator Mechanical Ventilator Fraction of Inspired Oxygen (FIO2) 11/02/23 22:00 11/02/23 22:48 11/02/23 22:30 Temperature Temperature Source Pulse Rate 76 67 74 Respiratory Rate 16 16 16 Blood Pressure 134/65 H 109/73 Blood Pressure Mean 88 85 Pulse Ox 100 100 100 Oxygen Delivery Method Mechanical Ventilator Mechanical Ventilator Fraction of Inspired Oxygen (FIO2) 40 MDM MDM MDM Narrative Medical decision making narrative: Concern was for sepsis initially, she does have dried pill fragments on the right side of her mouth so there is also concern for aspiration pneumonia with hypoxia. Patient is on Eliquis reportedly so she may be having a hypertensive bleed or intracranial hemorrhage. Although patient was not hypoxic, she was not protecting her airway. Nasal trumpet was inserted out difficulty. In order to secure her airway, rapid sequence intubation was performed using 20 mg of etomidate and 100 mg of succinylcholine as she had small amount of gag reflex. She was intubated using an 8.0 ET tube and the glide scope with a 3 MAC blade. ET tube was visualized passing through the cords and was inserted to 22 at the lips. She had good color change on capnometry. She had equal breath sounds bilaterally without epigastric noise. Tensive workup was pursued. EKG was obtained and interpreted by myself independently as atrial fibrillation at 64 bpm without ectopy or acute ST changes. No STEMI. On her vent settings, she is satting well. She was administered fentanyl and rocuronium. She was hypotensive initially at 83/25. With concern for sepsis she was bolused 30 mL/kg with resultant blood pressure 134/65. She is not tachycardic. I reviewed her laboratory work and she has white count slightly elevated 11.4, hemoglobin stable at 9.5 with platelet count 319. Her initial CMP and lactic were hemolyzed and needed to be redrawn. Urinalysis shows 25-50 WBCs however there are 10-25 squamous epithelial cells. Her lactic acid is elevated at 4.5. BUN of 153 creatinine of 7.81. She had slight renal insufficiency in the past, but I feel that she is severely dehydrated. On her CMP her CO2 was low at 9. ABG was obtained and she has a pH of 7.182 with a pCO2 of 19.4 with a pO2 of 234. She may need her rate turned down. Of significance, her troponin is elevated 249. I am reluctant to give her aspirin as she is already on Eliquis and this may be more of a type II injury and secondary to her renal failure as well. Hence, I am also reluctant to put her on heparin. Attempt had been made at Central line placement without success in the right IJ. Additionally there was a small hematoma that developed after venipuncture, but no pulsatile blood. It does not appear to be rapidly expanding. It was think that her mental status may be secondary to her severe dehydration and renal failure. Additionally, I do not think she is really septic from an unknown source as chest x-ray was reviewed by myself independently I see no evidence of pneumonia. CT of the brain obtained and I reviewed the radiology report which shows no acute process, no hemorrhage. Her blood pressure has improved significantly. I reexamined the hematoma on her right neck and it does not appear to be rapidly expanding. I discussed patient with Dr. Rubin the hospitalist who requested that CT of the abdomen and pelvis be performed along with a CK and she will be given Zosyn and vancomycin for her elevated lactic acid. At this point in time, she will be admitted to the ICU in guarded condition. Critical care time 31 minutes. History & Record Review Discussion w/independent historian: EMS personnel Additional record(s) reviewed:: Prior ED visit and Prior labs Lab Data Attestation: I reviewed the patient's lab results. Labs: Laboratory Results - last 24 hr 11/02/23 11/02/23 11/02/23 20:15 21:00 21:10 WBC 11.4 H RBC 3.35 L Hgb 9.5 L Hct 31.3 L MCV 93.4 MCH 28.4 MCHC 30.4 L RDW Std Deviation 69.3 H RDW Coeff of Deep 20.4 H Plt Count 319 MPV 11.8 Immature Gran % (Auto) 1.100 H Neut % (Auto) 89.9 H Lymph % (Auto) 5.9 L [place] % (Auto) 2.8 Eos % (Auto) 0.0 Baso % (Auto) 0.3 Absolute Neuts (auto) 10.3 H Absolute Lymphs (auto) 0.68 L Nucleated RBC % 0 Platelet Estimate ADEQUATE RBC Morphology N CHROM Hypochromasia 1+ Anisocytosis 1+ Macrocytosis 1+ Janeen Cells 1+ Acanthocytes (Spur) 1+ PT 18.7 H INR 1.6 APTT 35.8 Sodium Cancelled Potassium Cancelled Chloride Cancelled Carbon Dioxide Cancelled Anion Gap Cancelled BUN Cancelled Creatinine Cancelled Estim Creat Clear Calc Cancelled Est GFR (MDRD) Af Amer Cancelled Est GFR (MDRD) Non-Af Cancelled BUN/Creatinine Ratio Cancelled Glucose Cancelled Lactic Acid Cancelled Calcium Cancelled Total Bilirubin Cancelled AST Cancelled ALT Cancelled Alkaline Phosphatase Cancelled Troponin I High Sens Cancelled Total Protein Cancelled Albumin Cancelled Globulin Cancelled Albumin/Globulin Ratio Cancelled Urine Color Yellow Urine Clarity Cloudy Urine pH 5.0 Ur Specific [place] 1.020 Urine Protein 30 H Urine Glucose (UA) 50 H Urine Ketones 5 H Urine Occult Blood 10 H Urine Nitrite Negative Urine Bilirubin Negative Urine Urobilinogen Normal Ur Leukocyte Esterase 500 H Urine RBC 0 SEEN Urine WBC 25-50 SEEN Ur Squamous Epith Cells 10-25 SEEN Urine Bacteria 0 SEEN Hyaline Casts 25-50 SEEN Urine Mucus 0 SEEN 11/02/23 22:15 WBC RBC Hgb Hct MCV MCH MCHC RDW Std Deviation RDW Coeff of Deep Plt Count MPV Immature Gran % (Auto) Neut % (Auto) Lymph % (Auto) [place] % (Auto) Eos % (Auto) Baso % (Auto) Absolute Neuts (auto) Absolute Lymphs (auto) Nucleated RBC % Platelet Estimate RBC Morphology Hypochromasia Anisocytosis Macrocytosis [place] Cells Acanthocytes (Spur) PT INR APTT Sodium 137 Potassium 4.6 Chloride 106 Carbon Dioxide 9.0 L* Anion Gap 22 H BUN 153 H* Creatinine 7.81 H* Estim Creat Clear Calc 5.13 Est GFR (MDRD) Af Amer 6 L Est GFR (MDRD) Non-Af 5 L BUN/Creatinine Ratio 19.6 Glucose 190 H Lactic Acid 4.2 H* Calcium 7.6 L Total Bilirubin 0.40 AST 38 H ALT 19 Alkaline Phosphatase 87 Troponin I High Sens 249 H* Total Protein 6.4 Albumin 2.5 L Globulin 3.9 Albumin/Globulin Ratio 0.6 L Urine Color Urine Clarity Urine pH Ur Specific [place] Urine Protein Urine Glucose (UA) Urine Ketones Urine Occult Blood Urine Nitrite Urine Bilirubin Urine Urobilinogen Ur Leukocyte Esterase Urine RBC Urine WBC Ur Squamous Epith Cells Urine Bacteria Hyaline Casts Urine Mucus ABG Data ABG results: ABG 11/02/23 22:03 Specimen Type ART Sample Site L Fem pH 7.18 L* Bicarbonate Actual 7.3 L Total CO2 8 Base Excess -21 L O2 Saturation 100 H O2 % 40.0 ABG pCO2 19.4 L ABG pO2 235 H Respiration Rate 16 O2 Delivery Device Adult Vent Vent Mode AC Tidal Volume 400.0 POC PEEP 5 Crit Call To/Read Back Yes Blood Gas Notified Whom reodicveronica Blood Gas Notified Time 22:05:04 Radiography Diagnostic Testing: Clinical Impression(s) from Imaging Studies Brain CT 11/02/23 20:52 IMPRESSION: No acute intracranial abnormality. Minimal chronic parenchymal changes for age. 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 Mentioned in 2009. Prominent intracranial and scalp arterial calcifications. Electronically Signed: Dorothea Jane MD at 23:03 EST , Critical Care Time Critical Care Time: Yes Critical care time (excluding procedures): 30-74 minutes (31), Including time spent:, Discussing w/Patient &/or Family/Fire Controlman, Discussing w/Consultants, Arranging Admission or Transfer and Performing Direct Patient Care at Bedside Discharge Plan Dx/Rx/DC Orders Clinical Impression: Acute alteration in mental status, Acute kidney failure, Elevated troponin, Dehydration, Lactic acidosis, Respiratory failure Disposition Disposition: [facility] Care [facility] Capacity Legal Rail Specialist Reflex Medical hold order details:: IF a medical hold is selected below, a suggested order for a MEDICAL HOLD will reflex upon signing the document. Next of kin: [place] law dictates a PRIORITY LIST for identifying legal decision-maker/legal next of kin in the following order (LNOK): 1st: The patient?s legal guardian, if any 2nd: The patient's spouse (if status is questionable, consult Risk Management) 3rd: The patient?s adult child(jasvir) (majority, if multiple children) 4th: The patient?s parents 5th: The patient?s adult siblings (majority, if multiple children siblings)
--- NOTE | 2023-11-02 22:53 | ED.RN ---
Spoke to son Jonnie that lives with her. Unsure of medications. Unsure of how to get a hold of siblings that are POA. Attempted to call evan Zuleta, phone line isn't working.
[2023-11-02 22:54] LABS: Lactic Acid 4.2 mmol/L (0.4-1.9)
[2023-11-02 22:55] LABS: ALB/GLOB Ratio 0.6 RATIO (0.9-2.4); AST(SGOT) 38 U/L (15-37); Alanine Aminotransfer ALT/SGPT 19 U/L (13-56); Albumin, Serum 2.5 g/dL (3.2-5.0); Alkaline Phosphatase 87 U/L (45-117); Anion Gap 22 (5-15); BUN 153 mg/dL (7-18); BUN/Creat Ratio 19.6 RATIO (10-20); Calcium,Total 7.6 mg/dL (8.5-10.1); Chloride 106 mmol/L (98-107); Creatinine, Serum 7.81 mg/dL (0.55-1.02); EST Glomerular Filtration Rate 5 mL/min (>60); Est Glom Filt Rate - Afr Amer 6 mL/min (>60); Estimated Creatinine Clearance 5.13 ml/min; Globulin 3.9 g/dL (2.2-4.2); Glucose 190 mg/dL (74-106); Potassium 4.6 mmol/L (3.5-5.1); Protein, Total 6.4 g/dL (6.4-8.2); Sodium Level 137 mmol/L (136-145); Troponin-I HS 249 pg/mL (3.0-54.0)
--- NOTE | 2023-11-02 23:07 | CT_ITS ---
We are attempting to reach an attending provider to discuss findings. An addendum with communication details will be sent when the communication is complete. EXAM: CT ABDOMEN AND PELVIS WITHOUT INTRAVENOUS CONTRAST CLINICAL INDICATION: Pain TECHNIQUE: Helically acquired images were obtained of the abdomen and pelvis without intravenous contrast. This CT exam was performed using one or more of the following dose reduction techniques: automated exposure control, adjustment of the mA and/or kV according to patient size, and/or use of iterative reconstruction technique. RADIATION DOSE: CTDIvol = 18.02 mGy, DLP = 900.42 mGy-cm. COMPARISON: No relevant prior studies available. FINDINGS: LOWER THORAX: Unremarkable. No cardiomegaly. No significant infiltrate or effusion at the lung bases, minimal groundglass opacity in the left lingula. ABDOMEN: LIVER: Unremarkable. Homogeneous. GALLBLADDER AND BILE DUCTS: Cholecystectomy clips. The common duct is 6 mm. PANCREAS: Mildly atrophic pancreas, no dilated duct. No focal cystic mass. SPLEEN: Unremarkable. Normal size without focal cystic or solid mass. ADRENALS: Mild fullness of the adrenals, suspected hyperplasia. KIDNEYS AND URETERS: Unremarkable. Normal renal size and position. No hydronephrosis or urinary tract stone. STOMACH AND BOWEL: Especially thick-walled appearance of right colon. No pneumatosis. Mildly thick-walled appearance of multiple small bowel loops especially in the upper and left abdomen. And mildly thick-walled appearance of much of the colon. Mild diverticulosis of the sigmoid colon, no evidence of acute diverticulitis. No stomach or bowel distention. Tiny bubble of gas in the periphery of the third part of the duodenum may be within tiny fold or diverticulum, not convincing for extraluminal air or pneumatosis. PELVIS: APPENDIX: Small normal appendix is seen on coronal images. BLADDER: Maguire catheter balloon in the urinary bladder. REPRODUCTIVE: Unremarkable as visualized. No mass. ABDOMEN and PELVIS: INTRAPERITONEAL SPACE: Unremarkable. No ascites or other fluid collection. No free air. BONES/JOINTS: Prominent epidural fat posterior to L5 and L5-S1. Mild decreased right upper body height at L1 no visible acute fracture line but correlate with back pain. There are multiple subacute-chronic anterior and anterolateral rib fractures with callus. Marked bilateral coronary artery calcifications and possibly stents. At least mild aortic valve leaflet calcifications. Mitral valve annular calcifications. Normal heart size. No suspicious lytic or blastic abnormality. SOFT TISSUES: Unremarkable. No discrete abdominal or pelvic wall hernia. VASCULATURE: Advanced arterial calcifications of intra-abdominal arteries. No evidence of aortic aneurysm or dissection. Mild apparent narrowing at the origin of the celiac axis. 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 Heavily calcified origin of the left renal artery but symmetric left renal size. LYMPH NODES: Unremarkable. No enlarged lymph nodes. TUBES, LINES AND DEVICES: Enteric tube tip in the gastric fundus. CT/Abdomen/Pelvis without Cont IMPRESSION: 1. 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 2. Multifocal thick-walled appearance of small bowel, especially proximal and mid small bowel. And almost diffuse at least mildly thick-walled appearance of the colon. 3. Findings may be due to inflammation and/or some component of superimposed ischemia involving small bowel and colon. 4. No ty pneumatosis. Slight mesenteric haziness and prominent vessels medial to some mildly thick-walled small bowel loops in the left upper quadrant. 5. Correlate with evidence of colitis. 6. Mild focal right decreased upper body height at L1 without visible acute fracture line. 7. Cholecystectomy. 8. Advanced coronary artery calcifications and/or stents. Electronically Signed: Dorothea Jane MD at 1:48 EST ,
--- OUTSIDE RECORDS SUMMARY | 2023-11-02 23:34 | XMS RPT_ITS | CCD ---
Author Name Unknown Address [address] [place] [id number] Organization [facility] Care Team Providers Care Car Customizer Name Role Phone Oumar Hassan MD Primary Care Provider [facility], Keti Unavailable Oumar Hassan MD Primary Care Provider [facility], Keti Unavailable Oumar Hassan MD Primary Care Provider TALAMPAS, OUMAR D Primary Care Unavailable TALAMPAS, OUMAR D Attending Unavailable QUINTANILLA, JERRICA Referring Unavailable TALAMPAS, OUMAR D Primary Care Unavailable QUINTANILLAJERRICA Attending Unavailable TALAMPAS, OUMAR D Primary Care Unavailable TALAMPAS, OUMAR D Primary Care Unavailable TALAMPAS, UOMAR D Attending Unavailable TALAMPAS, OUMAR D Primary Care Unavailable TALAMPAS, OUMAR D Referring Unavailable TALAMPAS, OUMAR D Primary Care Unavailable GURPREET BAR Attending Unavailable TESTRAGURPREET CARDENAS Referring Unavailable TALAMPAS, OUMAR D Primary Care Unavailable TALAMPAS, OUMAR D Referring Unavailable Allergies Allergy Classification Reported Allergen(s) Allergy Type Date of Onset Reaction(s) Facility (20 sources) dulaglutide; Translations: [DULAGLUTIDE] Drug Allergy 03-25-2020 [facility] Work Phone: Medications Current Medications Medication [...] cardiovascular system; Translations: [Atherosclerotic heart disease of [place] coronary artery without angina pectoris] Onset: 01-27-2006 [...] sources) Long-term current use of insulin; Translations: [half-way (current) use of insulin] Onset: 06-25-2022 06-25-2022 [...] 96.69 [degF] Oumar Hassan MD Work Phone: [facility] 07-28-2023 16:19-0400 Body weight 76.2 kg Oumar Hassan MD Work Phone: [facility] 07-28-2023 16:19-0400 Diastolic blood pressure 62 mm[Hg] Oumar Hassan MD Work Phone: [facility] 07-28-2023 16:19-0400 Heart rate 40 /min Oumar Hassan MD Work Phone: [facility] 07-28-2023 16:19-0400 Respiratory rate 18 /min Oumar Hassan MD Work Phone: [facility] 07-28-2023 16:19-0400 SaO2% (BldA) [Mass fraction] 98 % Oumar Hassan MD Work Phone: [facility] 07-28-2023 16:19-0400 Systolic blood pressure 122 mm[Hg] Oumar Hassan MD Work Phone: [facility] 01-08-2023 11:20-0400 Body temperature 97.81 [degF] Oumar Hassan MD Work Phone: [facility] 01-08-2023 11:20-0400 Body weight 86.64 kg Oumar Hassan MD Work Phone: [facility] 01-08-2023 11:20-0400 Diastolic blood pressure 68 mm[Hg] Oumar Hassan MD Work Phone: [facility] 01-08-2023 11:20-0400 Heart rate 43 /min Oumar Hassan MD Work Phone: [facility] 01-08-2023 11:20-0400 Respiratory rate 18 /min Oumar Hassan MD Work Phone: [facility] 01-08-2023 11:20-0400 SaO2% (BldA) [Mass fraction] 100 % Oumar Hassan MD Work Phone: [facility] 01-08-2023 11:20-0400 Systolic blood pressure 132 mm[Hg] Oumar Hassan MD Work Phone: [facility] 10-27-2022 11:10-0500 Body weight 89.36 kg Jerrica Quintanilla CHEMICAL UNIT OPERATOR.VACUUM DRUM DRIER OPERATOR Work Phone: [facility] 10-27-2022 11:10-0500 Diastolic blood pressure 60 mm[Hg] Jerrica Quintanilla CHEMICAL UNIT OPERATOR.VACUUM DRUM DRIER OPERATOR Work Phone: [facility] 10-27-2022 11:10-0500 Heart rate 96 /min Jerrica Quintanilla CHEMICAL UNIT OPERATOR.VACUUM DRUM DRIER OPERATOR Work Phone: [facility] 10-27-2022 11:10-0500 Respiratory rate 16 /min Jerrica Goldsmiths CHEMICAL UNIT OPERATOR.VACUUM DRUM DRIER OPERATOR Work Phone: [facility] 10-27-2022 11:10-0500 SaO2% (BldA) [Mass fraction] 93 % Jerrica Goldsmiths CHEMICAL UNIT OPERATOR.VACUUM DRUM DRIER OPERATOR Work Phone: [facility] 10-27-2022 11:10-0500 Systolic blood pressure 130 mm[Hg] Jerrica Goldsmiths CHEMICAL UNIT OPERATOR.VACUUM DRUM DRIER OPERATOR Work Phone: [facility] 06-27-2022 10:50-0400 Body weight 86.18 kg Oumar Hassan MD Work Phone: [facility] 06-27-2022 10:50-0400 Diastolic blood pressure 62 mm[Hg] Oumar Hassan MD Work Phone: [facility] 06-27-2022 10:50-0400 Heart rate 44 /min Oumar Hassan MD Work Phone: [facility] 06-27-2022 10:50-0400 SaO2% (BldA) [Mass fraction] 100 % Oumar Hassan MD Work Phone: [facility] 06-27-2022 10:50-0400 Systolic blood pressure 102 mm[Hg] Oumar Hassan MD Work Phone: [facility] Encounters Encounter Date Encounter Type Care Provider Facility Start: 09-27-2023 Refill Oumar rascon MD Work Phone: [facility] [place] Procedures Date Procedure Procedure Detail Performing Clinician Start: 07-28-2023 INFLUENZA VACCINE, P RSV FREE, AGE 65+ YR, HIGH DOSE, QUADRIVALENT (FLUZONE HIGH-DOSE) Oumar Hassan MD Work Phone: Start: 10-27-2022 INFLUENZA SEASONAL QUADRIVALENT HIGH DOSE AGE 65+ Jerrica Quintanilla CHEMICAL UNIT OPERATOR.VACUUM DRUM DRIER OPERATOR Work Phone: Plan of Treatment Date Care Activity Detail Author Start: 07-28-2024 Annual PCP Team Credit Risk Modeler ava Disease Visit Annual PCP Team Chronic Disease Visit [facility] Start: 07-28-2024 BP Controlled (<130/80) BP Controlle d (<130/80) [facility] Start: 01-15-2024 3 comp foot exam completed DIABETIC FOOT EXAM [facility] Start: 01-09-2024 ANNUAL PCP TEAM MARINE REPORTER AVA DISEASE VISIT ANNUAL PCP TEAM CHRONIC DISEASE VISIT [facility] Start: 01-09-2024 COVID-19 VACCINE (#1) COVID-19 VACCI NE (#1) [facility] Immunizations Immunization Date Immunization Notes Care Provider Fa cility 07-28-2023 influenza (HD-IIV4) vaccine, age 65+ yr, high dose, quadrivalent, PF (FLUZONE HIGH-DOSE) Oumar Hassan MD Work Phone: [facility] 10-27-2022 influenza, high-dose , quadrivalent vaccine (FLUZONE HIGH DOSE QUADRIVALENT) Jerrica Quintanilla APRN.VACUUM DRUM DRIER OPERATOR Work Phone: [facility] Work Phone: 10-27-2022 influenza virus vacc ine, unspecified formulation Oumar Hassan MD Work Phone: [facility] 09-19-2021 influenza, high-dose , quadrivalent vaccine (FLUZONE HIGH DOSE QUADRIVALENT) Oumar Hassan MD Work Phone: [facility] 10-17-2019 influenza, high dose seasonal, preservative-free Oumar Hassan MD Work Phone: [facility] Work Phone: 10-17-2019 pneumococcal polysaccharide vaccine, 23 valent Oumar Hassan MD Work Phone: [facility] Work Phone: 10-19-2017 influenza, high dose seasonal, preservative-free Oumar Hassan MD Work Phone: [facility] 10-19-2017 pneumococcal conjuga te vaccine, 13 valent Oumar Hassan MD Work Phone: [facility] 09-04-2015 influenza, high dose seasonal, preservative-free Oumar Hassan MD Work Phone: [facility] 08-18-2013 influenza virus vacc ine, unspecified formulation Oumar Hassan MD Work Phone: [facility] 07-14-2012 influenza virus vacc ine, unspecified formulation Oumar Hassan MD Work Phone: [facility] 07-24-2010 influenza virus vacc ine, unspecified formulation Oumar Hassan MD Work Phone: [facility] Work Phone: 08-09-2008 influenza virus vacc ine, unspecified formulation Oumar Hassan MD Work Phone: [facility] 08-09-2006 influenza virus vacc ine, unspecified formulation Oumar Hassan MD Work Phone: [facility] Work Phone: 08-18-2005 influenza virus vacc ine, unspecified formulation Oumar Hassan MD Work Phone: [facility] Work Phone: 08-18-2005 pneumococcal polysaccharide vaccine, 23 valent Oumar Hassan MD Work Phone: [facility] Work Phone: Payers Date Payer Category Payer Medicare HUMANA MEDICARE HUMANA GOLD PLUS [id number] 2021-Present [phone] [address] [address] [place] [address] [facility] [id number] 2021 Medicare HUMANA MEDICARE HUMANA GOLD PLUS [id number] 2021-Present [phone] [address] [address] [place] [address] [facility] [id number] 2021 Private Health Insurance [id number] Social History Date Type Detail Facility Tobacco smoking stat [facility] Never smoked tobacco [facility] Start: 12-19-2021 End: 07-28-2023 Alcohol intake Current non-drinker of alcohol (finding) [facility] Start: 1945 Sex Assigned At Not on file [facility] Start: 04-08-2022 End: 10-27-2022 Tobacco smoking status NHIS Ex-smoker [facility] Work Phone: History of tobacco use Cigarette Smoker [facility] Work Phone: Start: 04-08-2022 End: 10-27-2022 Tobacco use and exposure Smokeless tobacco non-user [facility] Work Phone: Start: 04-08-2022 End: 10-27-2022 Tobacco Comment smoked 1 pack a week for a month [facility] Start: 03-29-2022 End: 07-21-2022 Exposure to SARS-CoV-2 (event) Not sure [facility] Start: 04-28-2022 End: 07-10-2022 Exposure to SARS-CoV-2 (event) Unable to assess [facility] Work Phone: History of tobacco use Current smoker [facility] Work Phone: Start: 01-14-2023 End: 03-01-2023 History of Social function [facility] Start: 01-14-2023 End: 03-01-2023 Tobacco use panel [facility] Adult Depression Screening Assessment 0 [facility] Medical Equipment Procedure Code Equipment Code Equipment Origin al Text Equipment Identifier Dates Start: 01-26-2020 End: 02-25-2022 Goals Date Patient Goal Desired Activity /State Personal health goal Personal health goal Clinical Notes 05-28-2006 to 09-27-2023 Telephone Encounter - Char Martinez LPN - 09/27/2023 2:24 PM ESTTelephone Encounter - Ninfa Alvarado - 09/27/2023 11:16 AM ESTTelephone Encounter - Charla Edwards LPN - 08/23/2023 2:27 PM EST Note [...] patient. Ninfa Alvarado documented in this encounter [facility] 08-23-2023 Miscellaneous Notes Patient notified of providers [...] she is taking the Metformin. Patient using [facility] for her pharmacy if needed. Please advise documented in this encounter [facility] 08-17-2023 Miscellaneous Notes Cindy/ Nai nurse aware [...] to ask pcp to advise. Cindy- Nai [facility]- reports patient with HR 38-55 since she [...] medication adjustment? Please phone Cindy with reply: [phone] Reason for Disposition Taking water pill (i.e., diuretic) or heart medication (e.g., digoxin) Answer Assessment - Initial Assessment Questions 1. DESCRIPTION: [facility] nurse phoned to report patients HR is 38-55 Regular rhythm with murmur. 2. ONSET: Nurse arrived at 4 pm. 3. DURATION: Reports patient having problems with low HR off/on for a while. Doctor prescribed atenolol 25 mg daily. Enalapril 10 mg daily. Lasix 20 mg daily. HCTZ 25 mg daily. 4. PATTERN Low HR comes and goes. Reports [facility] visits starting Aug 03, got readings of 58, 62, 63, 61, 68, 59, 78, 72. BP today 110/70. POX 97. R 16. T 98.4- all today. 5. TAP: N/A 6. HEART RATE: See above. 7. RECURRENT SYMPTOM: Yes. Yesterday 114/82. Wednesday 114/64. 112/64. 108/76. 8. CAUSE: No palpitations recently. 9. CARDIAC HISTORY: A-fib. Aortic valve insuff. SC-10 years ago. Never had angioplasty. 10. OTHER SYMPTOMS: Patient reports she feels fine. No pain. Ocassional SOB when up moving around. No CP. No edema. No sweating. Ocassional dizziness when up. Patient trying to get enough fluids. Drinks 2 1/2 bottles a day- pushing to increase to 3 or 4. 11. : N/A Protocols used: Heart Rate and Heartbeat [id number] documented in this encounter [facility] 08-02-2023 Miscellaneous Notes Labs faxed to [facility]. Laura Sifuentes LPN Noted BPs were okay and noted HR in 60s. Will see how she does on lower dose ateholol. Filed labs orders t be printed to fax to [facility]. Spoke to Cindy ABDULLAHI concerning Provider [...] Laura Sifuentes LPN documented in this encounter [facility] 07-28-2023 Note HNO ID: [id number] Author: Oumar Hassan MD Service: ? Author Type: Physician Type: Progress Notes Filed: 08/05/2023 4:45 PM Note Text: This note was created using [employer]. Subjective Loni Galdamez is a 78 year old female. Patient presents with: F/U 6 months SUBJECTIVE: Loni Galdamez is a 78 year old year old lady here today for 6 month follow up appointment for review of medical conditions. Got rid of bed bugs while was in hospital and rehab at [facility]. Was out of her home for 2 months or so. SW at [facility] got her home treated twice while was gone. States that lost money, etc. at hospital. Lost $2000, ID, credit cards, etc. Resumed her atenolol twice daily even though was stopped at [facility] since was worried about heart. Heart rate [...] benign Internal hemorrhoids without mention of complication SC (myocardial infarction) (HCC) 02/2010 Osteoporosis, unspecified Other [...] 20 Units subcutaneously as directed. PATIENT ASSISTANCE [facility]. (Patient not taking: Reported on 07/28/2023) Insulin Stanton, Disposable, (BD ULTRA-FINE KELBY PEN NEEDLE) 32 [...] present management 2. (more content not included)... [facility] 07-28-2023 Instructions Oumar Hassan MD - 07/28/2023 5:18 PM EDT Decrease atenolol to 25 mg once daily. If get lightheaded or BP gets too low under 100, then stop atenolol documented in this encounter [facility] 07-28-2023 History of Presen t illness Narrative This note was created using [employer]. Subjective Loni Galdamez is a 78 year old female. Patient presents with: F/U 6 months SUBJECTIVE: Loni Galdamez is a 78 year old year old lady here today for 6 month follow up appointment for review of medical conditions. Got rid of bed bugs while was in hospital and rehab at [facility]. Was out of her home for 2 months or so. SW at [facility] got her home treated twice while was gone. States that lost money, etc. at hospital. Lost $2000, ID, credit cards, etc. Resumed her atenolol twice daily even though was stopped at [facility] since was worried about heart. Heart rate [...] benign Internal hemorrhoids without mention of complication SC (myocardial infarction) ([facility]) 02/2010 Osteoporosis, unspecified Other and unspecified hyperlipidemia [...] 20 Units subcutaneously as directed. PATIENT ASSISTANCE [facility]. (Patient not taking: Reported on 07/28/2023) Insulin Stanton, Disposable, (BD ULTRA-FINE KELBY PEN NEEDLE) 32 [...] resumed beta sherita after got home from [facility] even thought she knows it was stopped due to bradycardia. She feels okay and denies problems with symptoms of bradycardia. Monitor HR and BP through nurse and monitor medications. Further evaluation and treatment as indicated. Given dementia issues, needs support from nurse and aides to stay at home. I spent a total of 83 minutes on the date of the service which included [id number] patient care, completing clinical documentation, obtaining and/or reviewing separately obtained history, performing a medically appropriate examination, counseling and educating the patient/family/caregiver, ordering medications, tests, or procedures, independently interpreting results (not separately reported), and communicating results to the patient/family/caregiver. Oumar Hassan MD documented in this encounter [facility] 07-23-2023 Miscellaneous Notes Signed order faxed to number provided and Sierra CARRIZALES from [facility] updated. Laura Sifuentes LPN Patient's request for [...] to be faxed to below number, then [facility] will decide if they will fund. Char Martinez LPN See if RX is okay as written then print for me to sign Sirera CARRIZALES [facility] called in and reports she is trying [...] She states they are going through the [facility], through the [facility] and they will not give assistance without a prescription. She reports provider can fax it to them before the appointment to fax # [phone]. I let her know that sometimes the provider has to have the office visit before they can send a prescription in. documented in this encounter [facility] 2023 Miscellaneous Notes Monique at [facility] aware of same. Ok to return call and let them know that yes, we will follow for [facility] orders. Yani from [facility] calls and states that patient was discharged from [facility] on 06/26/2023 with the diagnosis of debility, failure to thrive, and hypoglycemia. Yani asking if provider willing to follow patient with orders for fpc, occupational therapy, physical therapy, and social work. If agreeable please give Yani a call back [phone]. Thank you, Belle Sanchez RN documented in this encounter [facility] 02-11-2023 Miscellaneous Notes Patient notified of results and provider's instructions. Patient verbalizes understanding. Elizabeth Segura LPN From pcp. Note that labs never popped into results to address since no signs of labs being doned or addressed with patient. Not sure [facility]. Her Cr was higher than usual. Should encourage patient to stay hydrated (though with her dementia, that may be difficult) and get labs repeated. She has / appointment with Dr. Cifuentes, so will have BMP ordered so she may do labs while there for that appointment documented in this encounter [facility] 02-01-2023 Miscellaneous Notes Pt changing rx to [...] for medication: Not applicable Thank you. Ninfa Aladna LPN documented in this encounter [facility] 01-26-2023 Miscellaneous Notes Kristy, if she calls [...] those over Medicaid income. Can assist with funeral home attendant, home delivered meals, medical alert button. There is typically a wait list. AAA would complete a home visit to assess and see if patient meets requirements. In regards to bed bugs. 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 There are resources that help with tips for cleaning your home. Patient seen in echo today. Reports difficulty taking care of herself. Further reports bed bug infestation in home and inability to get rid of them. Note sent to SW for help on available resources if any. Also sent to PCP for FYI. documented in this encounter [facility] 01-14-2023 Note HNO ID: [id number] Author: Gurpreet Bar Service: ? Author Type: [...] Patient presents to clinic ambulating in [facility] Vasc: DP and PT pulses are palpable [...] RTC in 3-4 months. Gurpreet Bar DPM [facility] 01-14-2023 Note HNO ID: [id number] Author: Rayne Painter RN Service: ? Author Type: ? Type: Progress Notes Filed: 01/14/2023 11:33 AM Note Text: AMB ROOMING INTAKE FLOWSHEET DATA Patient presents with: Left Foot - Established Patient, Debridement of Nail Right Foot - Established Patient, Debridement of Nail Patient is due for a diabetic foot exam. [facility] 01-14-2023 History of Presen t illness Narrative [...] Type 2 diabetes mellitus with neurological manifestations ([facility]) Plan: Patient was seen and evaluated. Nails [...] diabetic foot exam. documented in this encounter [facility] 01-14-2023 Instructions Gurpreet Bar - 01/14/2023 11:22 [...] (or decreased sensation in your feet) a rotoprinter should always cut your toenails. Be Careful [...] Go to your health care provider or rotoprinter to treat these conditions. documented in this encounter [facility] 01-08-2023 Note HNO ID: [id number] Author: Oumar Hassan MD Service: ? Author Type: Physician Type: Progress Notes Filed: 02/08/2023 1:15 AM Note Text: This note was created using [employer]. Subjective Loni Galdamez is a 77 year [...] benign Internal hemorrhoids without mention of complication SC (myocardial infarction) (HCC) 02/2010 Osteoporosis, unspecified Other [...] 20 Units subcutaneously as directed. PATIENT ASSISTANCE [facility]. Insulin Stanton, Disposable, (BD ULTRA-FINE KELBY PEN NEEDLE) 32 [...] type (HCC) F03. (more content not included)... [facility] 01-08-2023 Instructions Oumar Hassan MD - 01/08/2023 [...] bowels and strength. documented in this encounter [facility] 01-08-2023 History of Presen t illness Narrative This note was created using [employer]. Subjective Loni Galdamez is a 77 year [...] benign Internal hemorrhoids without mention of complication SC (myocardial infarction) (HCC) 02/2010 Osteoporosis, unspecified Other [...] 20 Units subcutaneously as directed. PATIENT ASSISTANCE [employer]. Insulin Stanton, Disposable, (BD ULTRA-FINE KELBY PEN NEEDLE) 32 [...] Oumar Hassan MD documented in this encounter [facility] 12-22-2022 Miscellaneous Notes Rec'd fax from [employer] [id number]. Pt does meet program eligibility requirements and is enrolled in [employer] until the end of 2022. documented in this encounter [facility] 12-03-2022 Note HNO ID: [id number] Author: Charla Hernandez LPN Service: ? Author Type: ? Type: Progress Notes Filed: 12/04/2022 8:15 AM Note Text: [employer] form was signed by Jerrica and faxed. [facility] 12-03-2022 History of Presen t illness Narrative [employer] form was signed by Jerrica and faxed. Patient and son stopped to see Sw to complete [employer] application for basaglar. Patient notes that she [...] was working with [employer] rep and health care attorney as she had received boxes of an old insulin that she used to take but no longer takes. Patient notes that [employer] rep had told her that she would send labels to send back medication. Patient notes that she never received labels and through insulin away. Patient reports that now she has received a bill for the insulin that they sent her that was from an old prescription. Sw and patient discussed that patient has nurse from [employer] that comes to see her once a year. Patient notes that she will reach out to the nurse to see what she needs to do regarding bill for insulin. documented in this encounter [facility] 12-03-2022 Note HNO ID: [id number] Author: MARGARITO Zuñiga Service: ? Author Type: Jig Mill Operator Type: Progress Notes Filed: 12/04/2022 8:15 AM Note Text: Patient and son stopped to see Sw to complete [employer] application for basaglar. Patient notes that she did receive letter that her application had on 10/17/22 and she needed to complete new application. Patient completed her portion of application and signed consent for release form for [employer]. Sw will take forms to MELIVN [employer]erril for her to complete basaglar prescription completion. Patient also noted that she was working with [employer] rep and health care attorney as she had received boxes of an old insulin that she used to take but no longer takes. Patient notes that [employer] rep had told her that she would send labels to send back medication. Patient notes that she never received labels and through insulin away. Patient reports that now she has received a bill for the insulin that they sent her that was from an old prescription. Sw and patient discussed that patient has nurse from [address] that comes to see her once a year. Patient notes that she will reach out to the nurse to see what she needs to do regarding bill for insulin. [facility] 12-02-2022 Miscellaneous Notes Sw spoke with patient regarding [employer] application. Patient states that she has not filled out new [employer] application this year for her andrea. Sw made appt for tomorrow 12/03/22 @noon. Patient and son will bring in their income statements to write income out on forms. documented in this encounter [facility] 11-03-2022 Miscellaneous Notes TC made advising of below. Order to [facility] for transfusion. follow up in another encounter, will close this She is very anemic and needs transfusion 2 U PRBCs at [facility]. Should complete FOBT and schedule appt [...] Lymph 1.00 - 4.00 k/uL 0.87 (L) [place]% % 6.3 Abs [place] <0.87 k/uL 0.51 Eosin% % 3.1 Abs [...] mg/dL 143 157 documented in this encounter [facility] 11-02-2022 Miscellaneous Notes Last office visit: 10/27/22 [...] pharmacy. No need to notify patient. [facility] Electronically signed by [facility] 11/02/2022 10:59 AM EST documented in this encounter [facility] 10-29-2022 Miscellaneous Notes Patient contact per provider to let her know that her recent lab work showed H/H 7.2/25.1 and she will need to get a blood transfusion to bring her numbers back up. Patient was instructed to go to [facility] central registration on Wednesday to get type and/or crossmatch and then will be need to come back on for the transfusion. Outpatient infusion should contact her with time. Patient verbalized understanding. Form with labs faxed to [facility] outpatient infusion. documented in this encounter [facility] 10-27-2022 Note HNO ID: [id number] Author: Jerrica Quintanilla APRN.VACUUM DRUM DRIER OPERATOR Service: ? Author Type: Nurse Specialist Type: [...] for Ischemic Heart Disease Aortic Valve Stenosis Chief Merchandising Officer (Current) Use of Insulin (Hcc) Presents for routine follow up visit. Son is in lobby. Was following with Alina Roque PharmD for diabetes mellitus. Currently with good control. Notes indicate need for appt with Dr. Suarez. Seen or scheduled appt: notes Director Of Plant Operations: no Mop Worker: Dr. Gupta [facility] DIABETES MELLITUS: Without report of excessive [...] 1 tablet by mouth once daily. Insulin Stanton, Disposable, (BD ULTRA-FINE KELBY PEN NEEDLE) 32 gauge x 5/32 Inject Basaglar once daily (more content not included)... [facility] 10-27-2022 Instructions Jerrica Quintanilla APRN.CNS - 10/27/2022 11:47 AM EST Make appt with Dr. Suarez regarding anemia. 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 Son is in lobby. Was following with Alina Roque PharmD for diabetes mellitus. Currently with good control. Notes indicate need for appt with Dr. Suarez. Seen or scheduled appt: notes Director Of Plant Operations: no Mop Worker: Dr. Gupta [facility] DIABETES MELLITUS: Without report of excessive [...] 1 tablet by mouth once daily. Insulin Stanton, Disposable, (BD ULTRA-FINE KELBY PEN NEEDLE) 32 [...] benign Internal hemorrhoids without mention of complication SC (myocardial infarction) (HCC) 02/2010 Osteoporosis, unspecified Other [...] 4 - Moderate documented in this encounter [facility] 07-17-2022 Miscellaneous Notes Care Transition Back to [...] Alina Roque RPh documented in this encounter [facility] 06-27-2022 History of Presen t illness Narrative This note was created using [employer]. Subjective Loni Galdamez is a 76 year [...] Has resumed. Spends over $110 per month. Conservation Worker will not treat unless paid up front. [...] benign Internal hemorrhoids without mention of complication SC (myocardial infarction) ([facility]) 02/2010 Osteoporosis, unspecified Other and unspecified hyperlipidemia [...] 1 tablet by mouth once daily. Insulin Stanton, Disposable, (BD ULTRA-FINE KELBY PEN NEEDLE) 32 gauge x /32 Inject Basaglar once daily as directed nitroglycerin sublingual (NITROQUICK) 0.4 mg SL tablet DISSOLVE ONE(1) TABLET UNDER THE TOUNGUE NEEDED FOR CHEST PAIN,EVERY 5 MIN X3 insulin glargine (LANTUS SOLOSTAR, BASAGLAR KWIKPEN) 100 unit/mL (3 mL) Inject 20 Units subcutaneously as directed. PATIENT ASSISTANCE [facility]. clopidogrel (PLAVIX) 75 mg tablet Take 1 [...] Oumar Hassan MD documented in this encounter [facility] 06-02-2022 Miscellaneous Notes Okayed Pt reports she has been without Lasix for about 7 days and she has some swelling to legs. Short term supply sent to [facility] Patient has been identified by name and [...] Lauryn Serrano RN documented in this encounter [facility] 05-21-2022 History of Presen t illness Narrative [...] plan of care. documented in this encounter [facility] 04-08-2022 History of Presen t illness Narrative [...] Objective: Patient presents to clinic ambulating in [facility] Vasc: DP and PT pulses are faint [...] pain under toes the feels like a [place]. Zeynep Bullock LPN documented in this encounter [facility] 02-25-2022 Miscellaneous Notes AUNDREA: 09/19/2021 Last refill: [...] Philly Poon Pss documented in this encounter [facility] 02-14-2022 Miscellaneous Notes Noted The following approved [...] 20 Units subcutaneously as directed. PATIENT ASSISTANCE [facility]. KARLY: No Authorizing Provider: OUMAR HASSAN clopidogrel (PLAVIX) 75 mg tablet 90 tablet 3 Sig: Take 1 tablet by mouth once daily. KARLY: No Authorizing Provider: OUMAR HASSAN clopidogrel (PLAVIX) 75 mg tablet 7 tablet 0 Sig: Take 1 tablet by mouth once daily. Authorizing Provider: OUMAR HASSAN MD Spoke with pt and she states she spoke with [facility] and they do not have the prescription from 12-09-21. Please send new rx and she will need a short term to local pharmacy for 1 week. TC to patient with no answer. Unable to leave a VM. Please try again later. STEFANI Main She has an active script for plavix for 1 year supply sent to [address], does she need it ordered again? Does insulin script need to be printed or sent to [facility] [address]? Patient is questioning why she can not take Plavix?? She wanted to order it but is not sure if she should be taking this. Contact patient [phone] Alix Aldana Pss documented in this encounter [facility] documented as of this encounter (statuses as of 02/16/2022) [facility]08-11-2006 History of Past illness Narrative* Problem Noted Date Resolved Date Contusion of foot 05/28/2006 12/19/2020 OVERWEIGHT 07/28/2005 12/19/2020 Type II or unspecified type diabetes mellitus with neurological manifestations, uncontrolled(250.62) 07/28/200504/17 documented as of this encounter (statuses as of 02/26/2022) [facility] History of Past illness Narrative* Problem Noted Date Resolved Date Contusion of foot 05/28/2006 12/19/2020 OVERWEIGHT 07/28/2005 12/19/2020 Type II or unspecified type diabetes mellitus with neurological manifestations, uncontrolled(250.62) 07/28/200504/17 documented as of this encounter (statuses as of 04/09/2022) [facility] History of Past illness Narrative* Problem Noted Date Resolved Date Contusion of foot 05/28/2006 12/19/2020 OVERWEIGHT 07/28/2005 12/19/2020 Type II or unspecified type diabetes mellitus with neurological manifestations, uncontrolled(250.62) 07/28/200504/17 documented as of this encounter (statuses as of 05/22/2022) [address] History of Past illness Narrative* Problem Noted Date Resolved Date Contusion of foot 05/28/2006 12/19/2020 OVERWEIGHT 07/28/2005 12/19/2020 Type II or unspecified type diabetes mellitus with neurological manifestations, uncontrolled(250.62) 07/28/200504/17 documented as of this encounter (statuses as of 06/02/2022) [address] History of Past illness Narrative* Problem Noted Date Resolved Date Contusion of foot 05/28/2006 12/19/2020 OVERWEIGHT 07/28/2005 12/19/2020 Type II or unspecified type diabetes mellitus with neurological manifestations, uncontrolled(250.62) 07/28/200504/17 documented as of this encounter (statuses as of 07/17/2022) [address] History of Past illness Narrative* Problem Noted Date Resolved Date Contusion of foot 05/28/2006 12/19/2020 OVERWEIGHT 07/28/2005 12/19/2020 Type II or unspecified type diabetes mellitus with neurological manifestations, uncontrolled(250.62) 07/28/200504/17 documented as of this encounter (statuses as of 08/13/2022) [address] History of Past illness Narrative* Problem Noted Date Resolved Date Contusion of foot 05/28/2006 12/19/2020 OVERWEIGHT 07/28/2005 12/19/2020 Type II or unspecified type diabetes mellitus with neurological manifestations, uncontrolled(250.62) 07/28/200504/17 documented as of this encounter (statuses as of 10/28/2022) [address] History of Past illness Narrative* Problem Noted Date Resolved Date Contusion of foot 05/28/2006 12/19/2020 OVERWEIGHT 07/28/2005 12/19/2020 Type II or unspecified type diabetes mellitus with neurological manifestations, uncontrolled(250.62) 07/28/200504/17 documented as of this encounter (statuses as of 10/29/2022) [address] History of Past illness Narrative* Problem Noted Date Resolved Date Contusion of foot 05/28/2006 12/19/2020 OVERWEIGHT 07/28/2005 12/19/2020 Type II or unspecified type diabetes mellitus with neurological manifestations, uncontrolled(250.62) 07/28/200504/17 documented as of this encounter (statuses as of 11/02/2022) [address] History of Past illness Narrative* Problem Noted Date Resolved Date Contusion of foot 05/28/2006 12/19/2020 OVERWEIGHT 07/28/2005 12/19/2020 Type II or unspecified type diabetes mellitus with neurological manifestations, uncontrolled(250.62) 07/28/200504/17 documented as of this encounter (statuses as of 11/03/2022) [address]2006 History of Past illness Narrative* Problem Noted Date Resolved Date Contusion of foot 05/28/2006 12/19/2020 OVERWEIGHT 07/28/2005 12/19/2020 Type II or unspecified type diabetes mellitus with neurological manifestations, uncontrolled(250.62) 07/28/200504/17 documented as of this encounter (statuses as of 12/02/2022) [address]2006 History of Past illness Narrative* Problem Noted Date Resolved Date Contusion of foot 05/28/2006 12/19/2020 OVERWEIGHT 07/28/2005 12/19/2020 Type II or unspecified type diabetes mellitus with neurological manifestations, uncontrolled(250.62) 07/28/200504/17 documented as of this encounter (statuses as of 12/04/2022) [address]2006 History of Past illness Narrative* Problem Noted Date Resolved Date Contusion of foot 05/28/2006 12/19/2020 OVERWEIGHT 07/28/2005 12/19/2020 Type II or unspecified type diabetes mellitus with neurological manifestations, uncontrolled(250.62) 07/28/200504/17 documented as of this encounter (statuses as of 12/23/2022) [address]2006 History of Past illness Narrative* Problem Noted Date Resolved Date Contusion of foot 05/28/2006 12/19/2020 OVERWEIGHT 07/28/2005 12/19/2020 Type II or unspecified type diabetes mellitus with neurological manifestations, uncontrolled(250.62) 07/28/200504/17 documented as of this encounter (statuses as of 01/14/2023) [place] [address] History of Past illness Narrative* Problem Noted Date Resolved Date Contusion of foot 05/28/2006 12/19/2020 OVERWEIGHT 07/28/2005 12/19/2020 Type II or unspecified type diabetes mellitus with neurological manifestations, uncontrolled(250.62) 07/28/200504/17 documented as of this encounter (statuses as of 02/01/2023) [address] History of Past illness Narrative* Problem Noted Date Resolved Date Contusion of foot 05/28/2006 12/19/2020 OVERWEIGHT 07/28/2005 12/19/2020 Type II or unspecified type diabetes mellitus with neurological manifestations, uncontrolled(250.62) 07/28/200504/17 documented as of this encounter (statuses as of 02/08/2023) [address]2006 History of Past illness Narrative* Problem Noted Date Resolved Date Contusion of foot 05/28/2006 12/19/2020 OVERWEIGHT 07/28/2005 12/19/2020 Type II or unspecified type diabetes mellitus with neurological manifestations, uncontrolled(250.62) 07/28/200504/17 documented as of this encounter (statuses as of 02/11/2023) [address] History of Past illness Narrative* Problem Noted Date Resolved Date Contusion of foot 05/28/2006 12/19/2020 OVERWEIGHT 07/28/2005 12/19/2020 Type II or unspecified type diabetes mellitus with neurological manifestations, uncontrolled(250.62) 07/28/200504/17 documented as of this encounter (statuses as of 04/08/2023) [address] History of Past illness Narrative* Problem Noted Date Diagnosed Date Resolved Date Contusion of foot 05/28/2006 12/19/2020 OVERWEIGHT 07/28/2005 12/19/2020 Type II or unspecified type diabetes mellitus with neurological manifestations, uncontrolled(250.62) 07/28/2005 04/28/2013 documented as of this encounter (statuses as of 2023) [address] History of Past illness Narrative* Problem Noted Date Diagnosed Date Resolved Date Contusion of foot 05/28/2006 12/19/2020 OVERWEIGHT 07/28/2005 12/19/2020 Type II or unspecified type diabetes mellitus with neurological manifestations, uncontrolled(250.62) 07/28/2005 04/28/2013 documented as of this encounter (statuses as of 07/24/2023) [address] History of Past illness Narrative* Problem Noted Date Diagnosed Date Resolved Date Contusion of foot 05/28/2006 12/19/2020 OVERWEIGHT 07/28/2005 12/19/2020 Type II or unspecified type diabetes mellitus with neurological manifestations, uncontrolled(250.62) 07/28/2005 04/28/2013 documented as of this encounter (statuses as of 08/02/2023) [address] History of Past illness Narrative* Problem Noted Date Diagnosed Date Resolved Date Contusion of foot 05/28/2006 12/19/2020 OVERWEIGHT 07/28/2005 12/19/2020 Type II or unspecified type diabetes mellitus with neurological manifestations, uncontrolled(250.62) 07/28/2005 04/28/2013 documented as of this encounter (statuses as of 08/05/2023) [address] History of Past illness Narrative* Problem Noted Date Diagnosed Date Resolved Date Contusion of foot 05/28/2006 12/19/2020 OVERWEIGHT 07/28/2005 12/19/2020 Type II or unspecified type diabetes mellitus with neurological manifestations, uncontrolled(250.62) 07/28/2005 04/28/2013 documented as of this encounter (statuses as of 08/18/2023) [address] History of Past illness Narrative* Problem Noted Date Diagnosed Date Resolved Date Contusion of foot 05/28/2006 12/19/2020 OVERWEIGHT 07/28/2005 12/19/2020 Type II or unspecified type diabetes mellitus with neurological manifestations, uncontrolled(250.62) 07/28/2005 04/28/2013 documented as of this encounter (statuses as of 08/24/2023) [address] History of Past illness Narrative* Problem Noted Date Diagnosed Date Resolved Date Contusion of foot 05/28/2006 12/19/2020 OVERWEIGHT 07/28/2005 12/19/2020 Type II or unspecified type diabetes mellitus with neurological manifestations, uncontrolled(250.62) 07/28/2005 04/28/2013 documented as of this encounter (statuses as of 09/28/2023) [facility] note* Diagnosis Onychomycosis- Primary Dermatophytosis of nail Pain in toe of left foot Pain in limb Pain in toe of right foot Pain in limb Neuroma Other benign neoplasm of connective and other soft tissue of unspecified site [facility] [place] [facility] Diagnosis Procedure not carried out- Primary Procedure not carried out for other reasons [facility] [place] [facility]* Diagnosis 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 Type II or unspecified type diabetes mellitus with neurological manifestations, not stated as uncontrolled Mixed hyperlipidemia Essential hypertension Unspecified essential hypertension Moderate dementia without behavioral disturbance, psychotic disturbance, mood disturbance, or anxiety, unspecified dementia type [facility] [place] [facility] Diagnosis Encounter for immunization- Primary Need [...] serum enzyme levels documented in this encounter [facility] note* Diagnosis Onychomycosis- Primary Dermatophytosis of nail Pain in toe of left foot Pain in limb Pain in toe of right foot Pain in limb 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) Type II or unspecified type diabetes mellitus with neurological manifestations, not stated as uncontrolled [facility] [place] [facility]* Diagnosis Type 2 diabetes mellitus with [...] kidney and ureter [facility] Diagnosis 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 Type II or unspecified type diabetes mellitus with neurological manifestations, not stated as uncontrolled Mixed hyperlipidemia Anemia, unspecified type Encounter for long-term current use of medication [facility] Diagnosis Type 2 diabetes mellitus with [...] kidney disease (HCC) [facility] Outpatient Procedure (Routine) - Authorized Specialty Diagnoses / Procedures Referred By Braeden mcknight Referred To [facility] Diagnoses Aortic valve stenosis, etiology of cardiac valve disease unspecified Procedures ECHO ECHO TTHRC R-T 2D W/WOM-MODE COMPL SPEC&COLR D uOmar Hassan MD [address] [place] [address] [facility] [place] [address] [place] [address] Referral ID Status Reason Start Date Expiration Date Visits Requested Visits Authorized [id number] Authorized Auto-Generat ed Referral 01/22/2023 04/22/2023 1 1 * Medication Prior Authorization - Closed Specialty Diagnoses / Procedures Referred By Braeden mcknight Referred To Contact Oumar Hassan MD [facility] [place] [address] Referral ID Status Reason Start Date Expiration Date Visits Re quested Visits Authorized [id number] Closed 1 1 [facility] Advance Directives Documents on File Type Date Recorded Patient Order Picker Expl anation Advance Directive(s) Reason for Referral Specialty Diagnoses / Procedures Referred By Braeden mcknight Referred To Contact General Surgery Diagnoses Anemia, unspecified type Procedures CONSULT TO GENERAL SURGERY OFFICE/OUTPATIENT [facility] 60-74 MINUTES QuintanillaJerrica, CHEMICAL UNIT OPERATOR.VACUUM DRUM DRIER OPERATOR [address] [place] [address] Referral ID Status Reason Start Date Expiration Date Visits Requested Visits Authorized [id number] Pending Review PCP Requested Referral 10/27/2022 10/27/2023 1 1 Specialty Diagnoses / Procedures Referred By Braeden mcknight Referred To Contact Ophthalmology Diagnoses Screening for diabetic retinopathy 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) Procedures CONSULT TO OPHTHALMOLOGY OFFICE/OUTPATIENT [facility] 60-74 MINUTES QuintanillaJerrica rascon, CHEMICAL UNIT OPERATOR.VACUUM DRUM DRIER OPERATOR [address] [place] [address] Referral ID Status Reason Start Date Expiration Date Visits Requested Visits Authorized [id number] Pending Review PCP Requested Referral 10/27/2022 10/27/2023 1 1 Specialty Diagnoses / Procedures Referred By Braeden mcknight Referred To Contact Rosangela Cui APRN.HOSPICE COORDINATOR [address] [place] [address] Referral ID Status Reason Start Date Expiration Date V isits Requested Visits Authorized [id number] Pending Review 1 1 Summary Purpose Family History No Family History Records Found Additional Source Comments Source Comments (unrecognize d section and content) In the event this informatio n is protected by the Federal Confidentiality of Alcohol and Drug Abuse Patient Records regulations: The Federal rules restrict any use of the information to criminally investigate or prosecute any alcohol or drug abuse patient.[facility] the event this information is protected by the Federal Confidentiality of Alcohol and Drug Abuse Patient Records regulations: The Federal rules restrict any use of the information to criminally investigate or prosecute any alcohol or drug abuse patient.[facility] the event this information is protected by the Federal Confidentiality of Alcohol and Drug Abuse Patient Records regulations: The Federal rules restrict any use of the information to criminally investigate or prosecute any alcohol or drug abuse patient.[facility] the event this information is protected by the Federal Confidentiality of Alcohol and Drug Abuse Patient Records regulations: The Federal rules restrict any use of the information to criminally investigate or prosecute any alcohol or drug abuse patient.[facility] the event this information is protected by the Federal Confidentiality of Alcohol and Drug Abuse Patient Records regulations: The Federal rules restrict any use of the information to criminally investigate or prosecute any alcohol or drug abuse patient.[facility] the event this information is protected by the Federal Confidentiality of Alcohol and Drug Abuse Patient Records regulations: The Federal rules restrict any use of the information to criminally investigate or prosecute any alcohol or drug abuse patient.[facility] the event this information is protected by the Federal Confidentiality of Alcohol and Drug Abuse Patient Records regulations: The Federal rules restrict any use of the information to criminally investigate or prosecute any alcohol or drug abuse patient.[facility] the event this information is protected by the Federal Confidentiality of Alcohol and Drug Abuse Patient Records regulations: The Federal rules restrict any use of the information to criminally investigate or prosecute any alcohol or drug abuse patient.[facility] the event this information is protected by the Federal Confidentiality of Alcohol and Drug Abuse Patient Records regulations: The Federal rules restrict any use of the information to criminally investigate or prosecute any alcohol or drug abuse patient.[facility] the event this information is protected by the Federal Confidentiality of Alcohol and Drug Abuse Patient Records regulations: The Federal rules restrict any use of the information to criminally investigate or prosecute any alcohol or drug abuse patient.[facility] the event this information is protected by the Federal Confidentiality of Alcohol and Drug Abuse Patient Records regulations: The Federal rules restrict any use of the information to criminally investigate or prosecute any alcohol or drug abuse patient.[facility] HospitalIn the event this information is protected by the Federal Confidentiality of Alcohol and Drug Abuse Patient Records regulations: The Federal rules restrict any use of the information to criminally investigate or prosecute any alcohol or drug abuse patient.[facility] HospitalIn the event this information is protected by the Federal Confidentiality of Alcohol and Drug Abuse Patient Records regulations: The Federal rules restrict any use of the information to criminally investigate or prosecute any alcohol or drug abuse patient.[facility] HospitalIn the event this information is protected by the Federal Confidentiality of Alcohol and Drug Abuse Patient Records regulations: The Federal rules restrict any use of the information to criminally investigate or prosecute any alcohol or drug abuse patient.[facility] HospitalIn the event this information is protected by the Federal Confidentiality of Alcohol and Drug Abuse Patient Records regulations: The Federal rules restrict any use of the information to criminally investigate or prosecute any alcohol or drug abuse patient.[facility] HospitalIn the event this information is protected by the Federal Confidentiality of Alcohol and Drug Abuse Patient Records regulations: The Federal rules restrict any use of the information to criminally investigate or prosecute any alcohol or drug abuse patient.[facility] HospitalIn the event this information is protected by the Federal Confidentiality of Alcohol and Drug Abuse Patient Records regulations: The Federal rules restrict any use of the information to criminally investigate or prosecute any alcohol or drug abuse patient.[facility] HospitalIn the event this information is protected by the Federal Confidentiality of Alcohol and Drug Abuse Patient Records regulations: The Federal rules restrict any use of the information to criminally investigate or prosecute any alcohol or drug abuse patient.[facility] HospitalIn the event this information is protected by the Federal Confidentiality of Alcohol and Drug Abuse Patient Records regulations: The Federal rules restrict any use of the information to criminally investigate or prosecute any alcohol or drug abuse patient.[facility] HospitalIn the event this information is protected by the Federal Confidentiality of Alcohol and Drug Abuse Patient Records regulations: The Federal rules restrict any use of the information to criminally investigate or prosecute any alcohol or drug abuse patient.[facility] HospitalIn the event this information is protected by the Federal Confidentiality of Alcohol and Drug Abuse Patient Records regulations: The Federal rules restrict any use of the information to criminally investigate or prosecute any alcohol or drug abuse patient.[facility] HospitalIn the event this information is protected by the Federal Confidentiality of Alcohol and Drug Abuse Patient Records regulations: The Federal rules restrict any use of the information to criminally investigate or prosecute any alcohol or drug abuse patient.[facility] HospitalIn the event this information is protected by the Federal Confidentiality of Alcohol and Drug Abuse Patient Records regulations: The Federal rules restrict any use of the information to criminally investigate or prosecute any alcohol or drug abuse patient.[facility] HospitalIn the event this information is protected by the Federal Confidentiality of Alcohol and Drug Abuse Patient Records regulations: The Federal rules restrict any use of the information to criminally investigate or prosecute any alcohol or drug abuse patient.[facility] HospitalIn the event this information is protected by the Federal Confidentiality of Alcohol and Drug Abuse Patient Records regulations: The Federal rules restrict any use of the information to criminally investigate or prosecute any alcohol or drug abuse patient.[facility] HospitalIn the event this information is protected by the Federal Confidentiality of Alcohol and Drug Abuse Patient Records regulations: The Federal rules restrict any use of the information to criminally investigate or prosecute any alcohol or drug abuse patient.[facility] Reason for Visit (unrecogniz ed section and content) Reason Onset Date Comments Refill Request 02/25/2022 Reason Comments Established Patient Follow Up Reason Onset Date Comments Refill Request 06/02/2022 Reason Comments Transition Of Care Reason Comments Follow Up Reason Comments Follow Up Reason Comments Results Reason Comments Refill Request New RX's to be sent to [facility] Reason Comments Results Labs, needs transfus ion [facility] Reason Comments prescription assistance Reason Comments approval from [facility] Reason Comments Established Patient Debridement of [...] t Referred To Contact INTERNAL MEDICINE Diagnoses [facility] hospital visit Procedures 4C EST Self 4c [place] [address] [place] [address] Referral ID Status Reason Start Date Expiration Date Visits Requested Visits Authorized [id number] Outside PCP OON/Self Pay Override 07/01/2023 12/28/2023 1 1 Reason Comments Low heart rate Reason Comments blood sugars climbing higher Reason Onset Date Comments Refill Request 09/27/2023 Care Teams (unrecognized sec tion and content) Car Customizer Relationship Specialty Start Date End Date Oumar Hassan MD [address] [place] [address] PCP - General Internal Medicine 09/24/10 [facility] [address] [facility] [address] Pharmacist Pharmacy 02/14/20 Car Customizer Relationship Specialty Start Date End Date Oumar Hassan MD [address] [facility] [address] PCP - General Internal Medicine 09/24/10 [facility] [address] [facility] [address] Pharmacist Pharmacy 02/14/20 Car Customizer Relationship Specialty Start Date End Date Oumar Hassan MD [address] [facility] [address] PCP - General Internal Medicine 09/24/[address] [facility] [address] [facility] [address] Pharmacist Pharmacy 02/14/20 Car Customizer Relationship Specialty Start Date End Date Oumar Hassan MD [address] [facility] [address] PCP - General Internal Medicine 09/24/10 [facility] [address] [facility] [address] Pharmacist Pharmacy 02/14/20 Car Customizer Relationship Specialty Start Date End Date Oumar Hassan MD [address] [facility] [address] PCP - General Internal Medicine 09/24/10 Car Customizer Relationship Specialty Start Date End Date Oumar Hassan MD [address] [facility] [address] PCP - General Internal Medicine 09/24/10 [facility], [facility] [address] [facility] [address] Pharmacist Pharmacy 02/14/20 07/16/22 Car Customizer Relationship Specialty Start Date End Date Oumar Hassan MD [address] [place] [address] PCP - General Internal Medicine 09/24/10 Car Customizer Relationship Specialty Start Date End Date Oumar Hassan MD [address] [place] [address] PCP - General Internal Medicine 09/24/10 Car Customizer Relationship Specialty Start Date End Date Oumar Hassan MD [address] [place] [address] PCP - General Internal Medicine 09/24/10 Car Customizer Relationship Specialty Start Date End Date Oumar Hassan MD [address] [place] [place] [address] PCP - General Internal Medicine 09/24/10 Car Customizer Relationship Specialty Start Date End Date Oumar Hassan MD [address] [place] [address] PCP - General Internal Medicine 09/24/10 Car Customizer Relationship Specialty Start Date End Date Oumar Hassan MD [address] [place] [address] PCP - General Internal Medicine 09/24/10 Car Customizer Relationship Specialty Start Date End Date Oumar Hassan MD [address] [place] [address] PCP - General Internal Medicine 09/24/10 Car Customizer Relationship Specialty Start Date End Date Oumar Hassan MD [address] [place] [address] PCP - General Internal Medicine 09/24/10 Car Customizer Relationship Specialty Start Date End Date Oumar Hassan MD [address] [place] [address] PCP - General Internal Medicine 09/24/10 Car Customizer Relationship Specialty Start Date End Date Oumar Hassan MD [address] [place] [address] PCP - General Internal Medicine 09/24/10 Car Customizer Relationship Specialty Start Date End Date Oumar Hassan MD [address] [place] [address] PCP - General Internal Medicine 09/24/10 Car Customizer Relationship Specialty Start Date End Date Oumar Hassan MD [address] [facility] [address] PCP - General Internal Medicine 09/24/10 Car Customizer Relationship Specialty Start Date End Date Oumar Hassan MD [address] [place] [address] PCP - General Internal Medicine 09/24/10 Car Customizer Relationship Specialty Start Date End Date Oumar Hassan MD [address] [place] [address] PCP - General Internal Medicine 09/24/10 INFORMATION [...] BE BASED ON THE PRIMARY CLINICAL RECORDS. [facility] [employer] [facility]. provides no warranty or guarantee of the accuracy or completeness of information in this document.
--- NOTE | 2023-11-02 23:40 | PCM.HP.STD ---
[facility] - General General Date of Admission: 11/02/23 Date of Service: 11/02/23 Chief Complaint: Altered mental status with agonal respirations requiring intubation. HPI Narrative VANIA ANN, is a 78 F with a past medical history of essential hypertension; on HCTZ, Lasix and enalapril, hyperlipidemia, overweight; with BMI of 29.6 this admission, diabetes mellitus type 2; of unknown control on metformin, diabetic neuropathy, history of CVA, chronic dementia, paroxysmal atrial fibrillation; on apixaban, coronary artery disease; status post OH, history of GI bleed; with previous duodenal ulcer, chronic kidney disease; stage III, chronic anemia and osteoarthritis; with chronic debility causing inability to walk and to independently perform her ADLs who presents to [facility] ER after she was noted to have altered mental status. Ms. Reza is not a reliable historian at this time as she was intubated shortly after arrival so information was gathered from the chart, medical staff and computer. According to the medical record EMS was called to her home for mental status change. Upon their arrival the patient was noted to have agonal respirations and was otherwise unresponsive except to sternal rub. Her blood glucose was checked and was noted to be above 100 mg/dL. They stated that her son gave her her pills and then when he checked on her he found her having agonal respirations and not responsive causing him to activate EMS. Apparently she was noted to have vomited with her dentures hanging senior living out of her mouth noted during her initial survey. Upon arrival in the ER she was noted to have a blood pressure of 83/25 mmHg with a pH of 7.18 with a pCO2 of 19.4 and a pO2 of 235 on a ventilator and AC mode with a tidal volume of 400 cc with an FiO2 of 40% with 5 of PEEP and a respiratory rate of 16 complicated by laboratory evidence of leukocytosis of 11.4 present on admission with a UA positive for acute cystitis; without hematuria but with evidence of hyaline casts consistent with suspected ATN causing severe acute renal failure in the setting of stage III chronic kidney disease with a serum creatinine of 7.81 mg/dL and a BUN of 153 mg/dL (up from her baseline serum creatinine of 1.73 mg/dL and a BUN of 54 mg/dL in July 2023) suspected to be due to adverse drug reaction to multiple diuretics and ROSALINA inhibitor compounded by lactic acidosis of 4.2 mmol/L present on admission with an elevated initial troponin of 249 pg/mL suspected to be due to severe acute kidney injury +/- possible non-STEMI type II and she was then admitted to the ICU for treatment under the sepsis protocol for a stay that is expected to be greater than 48 hours. [facility] Medical History Afib Anemia Atherosclerotic heart disease of [place] coronary artery without angina pectoris CKD (chronic kidney disease), stage III CVA (cerebral vascular accident) Dementia Essential hypertension GERD (gastroesophageal reflux disease) History of GI bleed Inability to walk Nonrheumatic aortic (valve) insufficiency Old myocardial infarction PAF (paroxysmal atrial fibrillation) Polyneuropathy Type 2 diabetes mellitus Home Medications atorvastatin 40 mg tablet 40 mg PO QDAY 12/01/17 [History Last Taken Unknown] donepezil 5 mg tablet 5 mg PO QHS 12/01/17 [History Last Taken Unknown] clopidogrel 75 mg tablet 75 mg PO QDAY 01/14/18 [History Last Taken Unknown] apixaban 5 mg tablet (Eliquis) 2.5 mg (1/2 x 5 mg) PO BID 30 days #30 tabs 05/10/23 [Rx Last Taken Unknown] acetaminophen 325 mg tablet 650 mg (2 x 325 mg) PO Q4H PRN PRN Fever, pain 1-10 #0 tabs 05/18/23 [Rx Last Taken Unknown] pantoprazole 40 mg tablet,delayed release (Protonix) 40 mg PO BID #60 tabs 05/18/23 [Rx Last Taken Unknown] enalapril maleate 10 mg tablet 10 mg PO Q12H 06/24/23 [History Last Taken Unknown] furosemide 20 mg tablet 20 mg PO DAILY 06/24/23 [History Last Taken Unknown] hydrochlorothiazide 25 mg tablet 25 mg PO DAILY 06/24/23 [History Last Taken Unknown] metformin 500 mg tablet,extended release 24 hr 500 mg PO DAILY 90 days #90 tabs 06/26/23 [Rx Last Taken Unknown] Allergy/AdvReac Type Severity Reaction Status Date / Time No Known Allergies Allergy Verified 11/02/23 20:27 Family History Mother Diabetes Son Heart disease Myocardial infarction Daughter Diabetes Daughter Diabetes Surgical History History of breast biopsy History of cardiac catheterization History of cholecystectomy History of colonoscopy (~2010) History of esophagogastroduodenoscopy (EGD) (~2001) Social History household members: children housing: house Smoking Status: Never smoker alcohol intake: never substance use type: does not use caffeine: Yes Type: coffee Number of servings: 4 what type of physical activity do you participate in: none seatbelt use: always do you feel safe at home: Yes ROS ROS Narrative Patient is intubated at this time and cannot complete a review of systems. Review of Systems ROS Unobtainable: due to encephalopathy Vital Signs Vital Signs Vital Signs: 11/02/23 20:28 11/02/23 20:48 11/02/23 20:49 Temperature 96.3 F L Temperature Source Temporal Pulse Rate 74 72 Respiratory Rate 16 20 H Blood Pressure 83/25 L Blood Pressure Mean 44 Pulse Ox 100 100 Oxygen Delivery Method Room Air Fraction of Inspired Oxygen (FIO2) 11/02/23 20:55 11/02/23 20:46 11/02/23 21:46 Temperature Temperature Source Pulse Rate 64 69 Respiratory Rate 17 14 Blood Pressure Blood Pressure Mean Pulse Ox 100 100 Oxygen Delivery Method Mechanical Ventilator Fraction of Inspired Oxygen (FIO2) 50 40 11/02/23 21:06 11/02/23 21:30 11/02/23 21:36 Temperature Temperature Source Pulse Rate 75 78 81 Respiratory Rate 16 16 16 Blood Pressure 95/67 112/56 L 118/46 L Blood Pressure Mean 76 74 70 Pulse Ox 100 99 100 Oxygen Delivery Method Mechanical Ventilator Mechanical Ventilator Mechanical Ventilator Fraction of Inspired Oxygen (FIO2) 11/02/23 22:00 11/02/23 22:48 11/02/23 22:30 Temperature Temperature Source Pulse Rate 76 67 74 Respiratory Rate 16 16 16 Blood Pressure 134/65 H 109/73 Blood Pressure Mean 88 85 Pulse Ox 100 100 100 Oxygen Delivery Method Mechanical Ventilator Mechanical Ventilator Fraction of Inspired Oxygen (FIO2) 40 Weight Weight: 151 lb 7.321 oz Body Mass Index (BMI) 29.5 Physical Exam Const Constitutional Narrative: Patient is intubated and unresponsive to painful stimuli at this time. She appears chronically ill, disheveled, unkempt and poorly cared for. HEENT normocephalic and head/scalp atraumatic HEENT Narrative: Patient is noted to have extremely dry mucous membranes. Eyes PERRL Eyes Narrative: Patient is unable to follow commands at this time. Neck Neck Narrative: Patient has bruising over the her right IJ for central line was attempted. Resp normal respiratory effort, no retractions, no use of accessory muscles and clear to auscultation bilaterally Cardio regular rate and regular rhythm Extremity normal to inspection Neuro Neuro Narrative: Patient is intubated and unable to follow commands at this time. Psych Psych Narrative: Patient is intubated and unable to follow any commands at this time. Results Medical Records Data Attestation: I reviewed the patient's medical records Lab / Micro Data Attestation: I reviewed the patient's lab results. 11/02/23 20:15 11/02/23 22:15 Labs: Laboratory Results - last 24 hr 11/02/23 20:15: WBC 11.4 H, RBC 3.35 L, Hgb 9.5 L, Hct 31.3 L, MCV 93.4, MCH 28.4, MCHC 30.4 L, RDW Std Deviation 69.3 H, RDW Coeff of Deep 20.4 H, Plt Count 319, MPV 11.8, Immature Gran % (Auto) 1.100 H, Neut % (Auto) 89.9 H, Lymph % (Auto) 5.9 L, Grand % (Auto) 2.8, Eos % (Auto) 0.0, Baso % (Auto) 0.3, Absolute Neuts (auto) 10.3 H, Absolute Lymphs (auto) 0.68 L, Nucleated RBC % 0, Platelet Estimate ADEQUATE, RBC Morphology N CHROM, Hypochromasia 1+, Anisocytosis 1+, Macrocytosis 1+, Milton Cells 1+, Acanthocytes (Spur) 1+, PT 18.7 H, INR 1.6, APTT 35.8, Sodium Cancelled, Potassium Cancelled, Chloride Cancelled, Carbon Dioxide Cancelled, Anion Gap Cancelled, BUN Cancelled, Creatinine Cancelled, Estim Creat Clear Calc Cancelled, Est GFR (MDRD) Af Amer Cancelled, Est GFR (MDRD) Non-Af Cancelled, BUN/Creatinine Ratio Cancelled, Glucose Cancelled, Calcium Cancelled, Total Bilirubin Cancelled, AST Cancelled, ALT Cancelled, Alkaline Phosphatase Cancelled, Troponin I High Sens Cancelled, Total Protein Cancelled, Albumin Cancelled, Globulin Cancelled, Albumin/Globulin Ratio Cancelled 11/02/23 21:00: Urine Color Yellow, Urine Clarity Cloudy, Urine pH 5.0, Ur Specific [place] 1.020, Urine Protein 30 H, Urine Glucose (UA) 50 H, Urine Ketones 5 H, Urine Occult Blood 10 H, Urine Nitrite Negative, Urine Bilirubin Negative, Urine Urobilinogen Normal, Ur Leukocyte Esterase 500 H, Urine RBC 0 SEEN, Urine WBC 25-50 SEEN, Ur Squamous Epith Cells 10-25 SEEN, Urine Bacteria 0 SEEN, Hyaline Casts 25-50 SEEN, Urine Mucus 0 SEEN 11/02/23 21:10: Lactic Acid Cancelled 11/02/23 22:15: Sodium 137, Potassium 4.6, Chloride 106, Carbon Dioxide 9.0 L*, Anion Gap 22 H, BUN 153 H*, Creatinine 7.81 H*, Estim Creat Clear Calc 5.13, Est GFR (MDRD) Af Amer 6 L, Est GFR (MDRD) Non-Af 5 L, BUN/Creatinine Ratio 19.6, Glucose 190 H, Lactic Acid 4.2 H*, Calcium 7.6 L, Total Bilirubin 0.40, AST 38 H, ALT 19, Alkaline Phosphatase 87, Troponin I High Sens 249 H*, Total Protein 6.4, Albumin 2.5 L, Globulin 3.9, Albumin/Globulin Ratio 0.6 L Micro: Microbiology 11/02/23 21:00 Mucosa - Nasopharyngeal SARS-CoV-2, Influenza & RSV (PCR) - Final ABG Data ABG results: ABG 11/02/23 22:03 Specimen Type ART Sample Site L Fem pH 7.18 L* Bicarbonate Actual 7.3 L Total CO2 8 Base Excess -21 L O2 Saturation 100 H O2 % 40.0 ABG pCO2 19.4 L ABG pO2 235 H Respiration Rate 16 O2 Delivery Device Adult Vent Vent Mode AC Tidal Volume 400.0 POC PEEP 5 Crit Call To/Read Back Yes Blood Gas Notified Whom reodica Blood Gas Notified Time 22:05:04 Imagaing Radiology Impression Brain CT 11/02/23 20:52 IMPRESSION: No acute intracranial abnormality. Minimal chronic parenchymal changes for age. 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 Mentioned in 2009. Prominent intracranial and scalp arterial calcifications. Electronically Signed: Dorothea Jane MD at 23:03 EST , Chest X-Ray 11/02/23 22:35 IMPRESSION: Mildly low endotracheal tube, consider retracting it 1-1.5 cm. Adequately positioned enteric tube. Electronically Signed: Dorothea Jane MD at 23:34 EST , [facility] Imaging Services [address] [place] [id number] Abdomen/Pelvis without Cont MR#: [id number] Acct: [id number] Name: VANIA ANN Rep #: [id number] : 1945 F 78 From: Dorothea Jane MD PCP: Dr. Namita Hassan MD Status: ADM IN Study: Abdomen/Pelvis without Cont Date of Exam: 11/02/23 Exam# [id number] Ordering Dr: Jaiden Conde MD We are attempting to reach an attending provider to discuss findings. An addendum with communication details will be sent when the communication is complete. EXAM: CT ABDOMEN AND PELVIS WITHOUT INTRAVENOUS CONTRAST CLINICAL INDICATION: Pain TECHNIQUE: Helically acquired images were obtained of the abdomen and pelvis without intravenous contrast. This CT exam was performed using one or more of the following dose reduction techniques: automated exposure control, adjustment of the mA and/or kV according to patient size, and/or use of iterative reconstruction technique. RADIATION DOSE: CTDIvol = 18.02 mGy, DLP = 900.42 mGy-cm. COMPARISON: No relevant prior studies available. FINDINGS: LOWER THORAX: Unremarkable. No cardiomegaly. No significant infiltrate or effusion at the lung bases, minimal groundglass opacity in the left lingula. ABDOMEN: LIVER: Unremarkable. Homogeneous. GALLBLADDER AND BILE DUCTS: Cholecystectomy clips. The common duct is 6 mm. PANCREAS: Mildly atrophic pancreas, no dilated duct. No focal cystic mass. SPLEEN: Unremarkable. Normal size without focal cystic or solid mass. ADRENALS: Mild fullness of the adrenals, suspected hyperplasia. KIDNEYS AND URETERS: Unremarkable. Normal renal size and position. No hydronephrosis or urinary tract stone. STOMACH AND BOWEL: Especially thick-walled appearance of right colon. No pneumatosis. Mildly thick-walled appearance of multiple small bowel loops especially in the upper and left abdomen. And mildly thick-walled appearance of much of the colon. Mild diverticulosis of the sigmoid colon, no evidence of acute diverticulitis. No stomach or bowel distention. Tiny bubble of gas in the periphery of the third part of the duodenum may be within tiny fold or diverticulum, not convincing for extraluminal air or pneumatosis. PELVIS: APPENDIX: Small normal appendix is seen on coronal images. BLADDER: Maguire catheter balloon in the urinary bladder. REPRODUCTIVE: Unremarkable as visualized. No mass. ABDOMEN and PELVIS: INTRAPERITONEAL SPACE: Unremarkable. No ascites or other fluid collection. No free air. BONES/JOINTS: Prominent epidural fat posterior to L5 and L5-S1. Mild decreased right upper body height at L1 no visible acute fracture line but correlate with back pain. There are multiple subacute-chronic anterior and anterolateral rib fractures with callus. Marked bilateral coronary artery calcifications and possibly stents. At least mild aortic valve leaflet calcifications. Mitral valve annular calcifications. Normal heart size. No suspicious lytic or blastic abnormality. SOFT TISSUES: Unremarkable. No discrete abdominal or pelvic wall hernia. VASCULATURE: Advanced arterial calcifications of intra-abdominal arteries. No evidence of aortic aneurysm or dissection. Mild apparent narrowing at the origin of the celiac axis. 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 Heavily calcified origin of the left renal artery but symmetric left renal size. LYMPH NODES: Unremarkable. No enlarged lymph nodes. TUBES, LINES AND DEVICES: Enteric tube tip in the gastric fundus. CT/Abdomen/Pelvis without Cont IMPRESSION: 1. 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 2. Multifocal thick-walled appearance of small bowel, especially proximal and mid small bowel. And almost diffuse at least mildly thick-walled appearance of the colon. 3. Findings may be due to inflammation and/or some component of superimposed ischemia involving small bowel and colon. 4. No ty pneumatosis. Slight mesenteric haziness and prominent vessels medial to some mildly thick-walled small bowel loops in the left upper quadrant. 5. Correlate with evidence of colitis. 6. Mild focal right decreased upper body height at L1 without visible acute fracture line. 7. Cholecystectomy. 8. Advanced coronary artery calcifications and/or stents. Electronically Signed: Dorothea Jane MD at 1:48 EST , CC: Dr. Jaiden Conde MD; Dr. Namita Hassan MD ~ [employer]: Assessment & Plan Assessment/Plan (1) Sepsis with encephalopathy and septic shock: QUALIFIERS: Sepsis type: sepsis due to unspecified organism Qualified Code(s): A41.9 - Sepsis, unspecified organism; R65.21 - Severe sepsis with septic shock; G93.41 - Metabolic encephalopathy (2) Respiratory failure: QUALIFIERS: Chronicity: acute Respiratory failure complication: hypoxia Qualified Code(s): J96.01 - Acute respiratory failure with hypoxia (3) Acute kidney failure: QUALIFIERS: Acute renal failure type: with acute tubular necrosis Qualified Code(s): N17.0 - Acute kidney failure with tubular necrosis (4) Lactic acidosis: (5) Elevated troponin: (6) Dehydration: PLAN: Plan 1. Sepsis with septic shock and septic encephalopathy evidenced by core temperature of 90.8 ?F with hypotension of 83/25 mmHg present on admission, leukocytosis of 11.4, lactic acidosis of 4.2 mmol/L present on admission and altered mental status with agonal respirations requiring intubation and mechanical ventilation with CT evidence of suspected colitis with ?SMA stenosis - Admit to ICU for treatment under the sepsis protocol. Proceed with full fluid bolus and serialize lactates to document response to treatment. Continue broad-spectrum antibiotics with IV vancomycin and IV Zosyn and await culture and sensitivity data to potentially narrow antibiotic spectrum. Give Tylenol as needed pain or fever. PICC line has been ordered in the a.m. Finally, we will consult the latin dance instructor on-call and the vascular surgeon on-call to see this patient on rounds in the a.m. for further recommendations with help appreciated in advance. 2. Aspiration pneumonia with severe respiratory and metabolic acidosis with pH of 7.18 present on admission along with urinalysis positive for acute cystitis; without hematuria causing #1 - Check CT scan of the chest without contrast to confirm suspicion of aspiration. 3. Severe acute kidney injury with evidence of hyaline casts consistent with suspected severe acute tubular necrosis due to adverse drug reaction to coadministration of hydrochlorothiazide, Lasix and enalapril in the setting of CKD; stage III compounding #1 & #2 - Vigorously volume resuscitate and recheck BMP in the a.m. to ensure improvement. Hold all potentially nephrotoxic agents including diuretics and ROSALINA inhibitors. Finally, we will consult the system support developer on-call see this patient on rounds in the a.m. for further recommendations regarding potential hemodialysis with help appreciated in advance. 4. Elevated initial troponin of 249 pg/mL suspected to be due to to acute kidney injury +/- possible non-STEMI type II in the setting of known coronary artery disease with previous OH - Continue aspirin plus Plavix and serialize troponin. Patient was already on Eliquis at time of admission with difficulty experience placing right IJ subsequent hematoma so we will start IV heparin without bolus at this time. Check echocardiogram to evaluate left ventricular ejection fraction. As per my conversation with [facility] will make the final decision on possible cardiology consultation of they deem it necessary with her second troponin the same as the first at 266 pg/mL. 5. Hypoalbuminemia of 2.5 g/dL present on admission suspicious for protein-calorie malnutrition - Check prealbumin to confirm suspicion. 6. Essential hypertension; on HCTZ, Lasix and enalapril - Hold all scheduled antihypertensives and avoid potentially nephrotoxic agents. 7. Hyperlipidemia - Resume statin and check lipid profile this admission in light of #4. 8. Overweight; with BMI of 29.6 this admission - Weight loss will eventually be recommended if patient is able to make a meaningful recovery. Check TSH. 9. Diabetes mellitus type 2; of unknown control on metformin - Hold metformin with lactic acidosis of 4.2 mmol/L present on admission. Fingerstick blood sugar every 6 hours with minimal sliding scale insulin. 10. Diabetic neuropathy - Stable. Continue supportive care. 11. History of CVA - Noted. 12. Chronic dementia - Noted. 13. Paroxysmal atrial fibrillation; on apixaban - Patient currently in normal sinus rhythm. Hold apixaban and give IV heparin without bolus in light of #4. 14. History of GI bleed; with previous duodenal ulcer - Noted. Start IV Protonix. 15. Chronic anemia - Stable. Check daily CBC to ensure continued stability. 16. Osteoarthritis; with chronic debility causing inability to walk and to independently perform her ADLs - Noted. She will likely require ECF placement if she is able to survive this admission. 17. DVT prophylaxis - Patient on IV heparin for #4. Plus also place SCDs. Total time: Approximately 95 minutes. Update: Patient was rechecked approximately 4 hours after admission and her lactate dropped from 4.2 mmol/L present on admission to 2 mmol/L now. Her vital signs are stable and RT has repositioned her ET-tube placed in the ER with repeat CXR pending at this time. RIGHT OF WAY SUPERVISOR was updated with plan. Sepsis Attestation Sepsis Alert: Yes Sepsis Attestation: Agree w/Sepsis Date exam was performed: 11/02/23 Time exam was performed: 23:00 Possible Source of Sepsis: Pulmonary and Genitourinary Sepsis Organ Dysfunction Criteria Present: SBP < 90 mmHg or MAP < 65 mmHg, Acute Respiratory Failure (New need for BiPAP/CPAP or MV), Creatinine > 2.0 mg/dL, Lactic Acid > 2 mmol/L and New/Unexplained change in mental status Fluid Resuscitation Fluid resuscitation indicated?: Yes Fluid Resuscitation ordered: 30 ml/kg fluid bolus ordered Amount of fluid ordered: 2 Sepsis Note Date exam was performed: 11/03/23 Time exam was performed: 03:00 Sepsis Attestation: Sepsis re-evaluation was performed Response to fluids: Fluid responsive hypotension Charges/Coding Visit Charges Inpatient E&M: 90920 Init Hosp L3
[2023-11-02] MEDS: Piperacil/Tazobactam 4.5 GM in 0.9% Normal Saline (100mL MB+) 100 ML IV (23:50)
[2023-11-02 23:58] LABS: CPK Total, Creatine Kinase 388 U/L (26-192)
[2023-11-03] VITALS (90 sets, daily range): BP systolic 51–136; BP diastolic 35–105; PULSE 60–102; RESP 14–21; TEMP 32.4–37.4; O2SAT 90–100
--- NOTE | 2023-11-03 00:20 | ED.RN ---
non-violent soft restraints applied to bilateral wrists at 2311 for line and tube protection related to intubation and sedation.
[2023-11-03] MEDS: Vancomycin HCl 1,750 MG in 0.9% Normal Saline (500mL Bag) 500 ML 250 MG IV (00:35)
--- OUTSIDE RECORDS SUMMARY | 2023-11-03 01:13 | XMS RPT_ITS | CCD ---
Author Name Unknown Address [address] [place] [id number] Organization [facility] Care Team Providers Care Binitrotoluene Operator Name Role Phone Oumar Hassan MD Primary Care Provider [facility], [place] Unavailable Oumar Hassan MD Primary Care Provider [facility], [place] Unavailable Oumar Hassan MD Primary Care [...] sources) dulaglutide; Translations: [DULAGLUTIDE] Drug Allergy 03-25-2020 [facility] Work Phone: Medications Current Medications Medication Drug [...] cardiovascular system; Translations: [Atherosclerotic heart disease of ione coronary artery without angina pectoris] Onset: 01-27-2006 [...] sources) Long-term current use of insulin; Translations: [senior care (current) use of insulin] Onset: 06-25-2022 06-25-2022 [...] 96.69 [degF] Oumar Hassan MD Work Phone: [facility] 07-28-2023 16:19-0400 Body weight 76.2 kg Oumar Hassan MD Work Phone: [facility] 07-28-2023 16:19-0400 Diastolic blood pressure 62 mm[Hg] Oumar Hassan MD Work Phone: [facility] 07-28-2023 16:19-0400 Heart rate 40 /min Oumar Hassan MD Work Phone: [facility] 07-28-2023 16:19-0400 Respiratory rate 18 /min Oumar Hassan MD Work Phone: [facility] 07-28-2023 16:19-0400 SaO2% (BldA) [Mass fraction] 98 % Oumar Hassan MD Work Phone: [facility] 07-28-2023 16:19-0400 Systolic blood pressure 122 mm[Hg] Oumar Hassan MD Work Phone: [facility] 01-08-2023 11:20-0400 Body temperature 97.81 [degF] Oumar Hassan MD Work Phone: [facility] 01-08-2023 11:20-0400 Body weight 86.64 kg Oumar Hasasn MD Work Phone: [facility] 01-08-2023 11:20-0400 Diastolic blood pressure 68 mm[Hg] Oumar Hassan MD Work Phone: [facility] 01-08-2023 11:20-0400 Heart rate 43 /min Oumar Hassan MD Work Phone: [facility] 01-08-2023 11:20-0400 Respiratory rate 18 /min Oumar Hassan MD Work Phone: [facility] 01-08-2023 11:20-0400 SaO2% (BldA) [Mass fraction] 100 % Oumar Hassan MD Work Phone: [facility] 01-08-2023 11:20-0400 Systolic blood pressure 132 mm[Hg] Oumar Hassan MD Work Phone: [facility] 10-27-2022 11:10-0500 Body weight 89.36 kg Jerrica Quintanilla CABLE ARMORER OPERATOR.DEPARTMENT EDITOR Work Phone: [facility] 10-27-2022 11:10-0500 Diastolic blood pressure 60 mm[Hg] Jerrica Quintanilla CABLE ARMORER OPERATOR.DEPARTMENT EDITOR Work Phone: [facility] 10-27-2022 11:10-0500 Heart rate 96 /min Jerrica Quintanilla CABLE ARMORER OPERATOR.DEPARTMENT EDITOR Work Phone: [facility] 10-27-2022 11:10-0500 Respiratory rate 16 /min Jerrica Goldsmiths CABLE ARMORER OPERATOR.DEPARTMENT EDITOR Work Phone: [facility] 10-27-2022 11:10-0500 SaO2% (BldA) [Mass fraction] 93 % Jerrica Goldsmiths CABLE ARMORER OPERATOR.DEPARTMENT EDITOR Work Phone: [facility] 10-27-2022 11:10-0500 Systolic blood pressure 130 mm[Hg] Jerrica Goldsmiths CABLE ARMORER OPERATOR.DEPARTMENT EDITOR Work Phone: [facility] 06-27-2022 10:50-0400 Body weight 86.18 kg Oumar Hassan MD Work Phone: [facility] 06-27-2022 10:50-0400 Diastolic blood pressure 62 mm[Hg] Oumar Hassan MD Work Phone: [facility] 06-27-2022 10:50-0400 Heart rate 44 /min Oumar Hassan MD Work Phone: [facility] 06-27-2022 10:50-0400 SaO2% (BldA) [Mass fraction] 100 % Oumar Hassan MD Work Phone: [facility] 06-27-2022 10:50-0400 Systolic blood pressure 102 mm[Hg] Oumar Hassan MD Work Phone: [facility] Encounters Encounter Date Encounter Type Care Provider Facility Start: 09-27-2023 Refill Oumar rascon MD Work Phone: [facility] [place] Procedures Date Procedure Procedure Detail Performing Clinician Start: 07-28-2023 INFLUENZA VACCINE, P RSV FREE, AGE 65+ YR, HIGH DOSE, QUADRIVALENT (FLUZONE HIGH-DOSE) Oumar Hassan MD Work Phone: Start: 10-27-2022 INFLUENZA SEASONAL QUADRIVALENT HIGH DOSE AGE 65+ Jerrica Quintanilla CABLE ARMORER OPERATOR.DEPARTMENT EDITOR Work Phone: Plan of Treatment Date Care Activity Detail Author Start: 07-28-2024 Annual PCP Team Costume Design Teacher ava Disease Visit Annual PCP Team Chronic Disease Visit [facility] Start: 07-28-2024 BP Controlled (<130/80) BP Controlle d (<130/80) [facility] Start: 01-15-2024 3 comp foot exam completed DIABETIC FOOT EXAM [facility] Start: 01-09-2024 ANNUAL PCP TEAM SECURITY PROFESSIONALS AVA DISEASE VISIT ANNUAL PCP TEAM CHRONIC DISEASE VISIT [facility] Start: 01-09-2024 COVID-19 VACCINE (#1) COVID-19 VACCI NE (#1) [facility] Immunizations Immunization Date Immunization Notes Care Provider Fa cility 07-28-2023 influenza (HD-IIV4) vaccine, age 65+ yr, high dose, quadrivalent, PF (FLUZONE HIGH-DOSE) Oumar Hassan MD Work Phone: [facility] 10-27-2022 influenza, high-dose , quadrivalent vaccine (FLUZONE HIGH DOSE QUADRIVALENT) Jerrica Quintanilla APRN.DEPARTMENT EDITOR Work Phone: [facility] Work Phone: 10-27-2022 influenza virus vacc ine, unspecified formulation Oumar Hassan MD Work Phone: [facility] 09-19-2021 influenza, high-dose , quadrivalent vaccine (FLUZONE HIGH DOSE QUADRIVALENT) Oumar Hassan MD Work Phone: [facility] 10-17-2019 influenza, high dose seasonal, preservative-free Oumar Hassan MD Work Phone: [facility] Work Phone: 10-17-2019 pneumococcal polysaccharide vaccine, 23 valent Oumar Hassan MD Work Phone: [facility] Work Phone: 10-19-2017 influenza, high dose seasonal, preservative-free Oumar Hassan MD Work Phone: [facility] 10-19-2017 pneumococcal conjuga te vaccine, 13 valent Oumar Hassan MD Work Phone: [facility] 09-04-2015 influenza, high dose seasonal, preservative-free Oumar Hassan MD Work Phone: [facility] 08-18-2013 influenza virus vacc ine, unspecified formulation Oumar Hassan MD Work Phone: [facility] 07-14-2012 influenza virus vacc ine, unspecified formulation Oumar Hassan MD Work Phone: [facility] 07-24-2010 influenza virus vacc ine, unspecified formulation Oumar Hassan MD Work Phone: [facility] Work Phone: 08-09-2008 influenza virus vacc ine, unspecified formulation Oumar Hassan MD Work Phone: [facility] 08-09-2006 influenza virus vacc ine, unspecified formulation Oumar Hassan MD Work Phone: [facility] Work Phone: 08-18-2005 influenza virus vacc ine, unspecified formulation Oumar Hassan MD Work Phone: [facility] Work Phone: 08-18-2005 pneumococcal polysaccharide vaccine, 23 valent Oumar Hassan MD Work Phone: [facility] Work Phone: Payers Date Payer Category Payer Medicare HUMANA MEDICARE HU[employer]NA GOLD PLUS [id number] 2021-Present [phone] [address] [address] [place] [address] [facility] [id number] 2021 Medicare HUMANA MEDICARE HUMANA GOLD PLUS [id number] 2021-Present [phone] [address] [address] [place] [address] [facility] [place] [id number] 2021 Private Health Insurance [id number] Social History Date Type Detail Facility Tobacco smoking stat [facility] Never smoked tobacco [facility] Start: 12-19-2021 End: 07-28-2023 Alcohol intake Current non-drinker of alcohol (finding) [facility] Start: 1945 Sex Assigned At Not on file [facility] Start: 04-08-2022 End: 10-27-2022 Tobacco smoking status NHIS Ex-smoker [facility] Work Phone: History of tobacco use Cigarette Smoker [facility] Work Phone: Start: 04-08-2022 End: 10-27-2022 Tobacco use and exposure Smokeless tobacco non-user [facility] Work Phone: Start: 04-08-2022 End: 10-27-2022 Tobacco Comment smoked 1 pack a week for a month [facility] Start: 03-29-2022 End: 07-21-2022 Exposure to SARS-CoV-2 (event) Not sure [facility] Start: 04-28-2022 End: 07-10-2022 Exposure to SARS-CoV-2 (event) Unable to assess [facility] Work Phone: History of tobacco use Current smoker [facility] Work Phone: Start: 01-14-2023 End: 03-01-2023 History of Social function [facility] Start: 01-14-2023 End: 03-01-2023 Tobacco use panel [facility] Adult Depression Screening Assessment 0 [facility] Medical Equipment Procedure Code Equipment Code Equipment [...] patient. Ninfa Alvarado documented in this encounter [facility] 08-23-2023 Miscellaneous Notes Patient notified of providers [...] she is taking the Metformin. Patient using [facility] for her pharmacy if needed. Please advise documented in this encounter [facility] 08-17-2023 Miscellaneous Notes Cindy/ Nai nurse aware [...] to ask pcp to advise. Cindy- Nai [facility]- reports patient with HR 38-55 since [...] medication adjustment? Please phone Cindy with reply: [phone] Reason for Disposition Taking water pill (i.e., diuretic) or heart medication (e.g., digoxin) Answer Assessment - Initial Assessment Questions 1. DESCRIPTION: [facility] nurse phoned to report patients HR is 38-55 Regular rhythm with murmur. 2. ONSET: Nurse arrived at 4 pm. 3. DURATION: Reports patient having problems with low HR off/on for a while. Doctor prescribed atenolol 25 mg daily. Enalapril 10 mg daily. Lasix 20 mg daily. HCTZ 25 mg daily. 4. PATTERN Low HR comes and goes. Reports [facility] visits starting Aug 03, got readings of 58, 62, 63, 61, 68, 59, 78, 72. BP today 110/70. POX 97. R 16. T 98.4- all today. 5. TAP: N/A 6. HEART RATE: See above. 7. RECURRENT SYMPTOM: Yes. Yesterday 114/82. Wednesday 114/64. 112/64. 108/76. 8. CAUSE: No palpitations recently. 9. CARDIAC HISTORY: A-fib. Aortic valve insuff. [place]-10 years ago. Never had angioplasty. 10. OTHER SYMPTOMS: Patient reports she feels fine. No pain. Ocassional SOB when up moving around. No CP. No edema. No sweating. Ocassional dizziness when up. Patient trying to get enough fluids. Drinks 2 1/2 bottles a day- pushing to increase to 3 or 4. 11. : N/A Protocols used: Heart Rate and Heartbeat [id number] documented in this encounter [facility] 08-02-2023 Miscellaneous Notes Labs faxed to [facility]. Laura Sifuentes LPN Noted BPs were okay and noted HR in 60s. Will see how she does on lower dose ateholol. Filed labs orders t be printed to fax to [facility]. Spoke to Cindy ABDULLAHI concerning Provider questions. Recent BP/HR 07/27/23 118/74 64 07/21/23 124/74 65 07/20/23 112/80 67 07/19/23 124/78 65 07/16/23 108/60 66 07/14/23 132/74 60 07/07/23 114/72 60 Cindy aware of Atenolol being changed sergei daily from bid. Medications updated in Epic. HH able to draw labs, has not had any drawn for HH. Laura Sifuenets LPN documented in this encounter [facility] 07-28-2023 Note HNO ID: [id number] Author: Oumar Hassan MD Service: ? Author Type: Physician Type: Progress Notes Filed: 08/05/2023 4:45 PM Note Text: This note was created using [employer]. Subjective Loni Galdamez is a 78 year old female. Patient presents with: F/U 6 months SUBJECTIVE: Loni Galdamez is a 78 year old year old lady here today for 6 month follow up appointment for review of medical conditions. Got rid of bed bugs while was in hospital and rehab at [facility]. Was out of her home for 2 months or so. SW at [facility] got her home treated twice while was gone. States that lost money, etc. at hospital. Lost $2000, ID, credit cards, etc. Resumed her atenolol twice daily even though was stopped at [facility] since was worried about heart. Heart rate [...] benign Internal hemorrhoids without mention of complication [place] (myocardial infarction) (HCC) 02/2010 Osteoporosis, unspecified Other [...] 20 Units subcutaneously as directed. PATIENT ASSISTANCE [facility]. (Patient not taking: Reported on 07/28/2023) Insulin [place], Disposable, (BD ULTRA-FINE KELBY PEN NEEDLE) 32 [...] present management 2. (more content not included)... [facility] 07-28-2023 Instructions Oumar Hassan MD - 07/28/2023 5:18 PM EDT Decrease atenolol to 25 mg once daily. If get lightheaded or BP gets too low under 100, then stop atenolol documented in this encounter [facility] 07-28-2023 History of Presen t illness Narrative This note was created using [employer]. Subjective Loni Galdamez is a 78 year old female. Patient presents with: F/U 6 months SUBJECTIVE: Loni Galdamez is a 78 year old year old lady here today for 6 month follow up appointment for review of medical conditions. Got rid of bed bugs while was in hospital and rehab at [facility]. Was out of her home for 2 months or so. SW at [facility] got her home treated twice while was gone. States that lost money, etc. at hospital. Lost $2000, ID, credit cards, etc. Resumed her atenolol twice daily even though was stopped at [facility] since was worried about heart. Heart rate [...] benign Internal hemorrhoids without mention of complication [place] (myocardial infarction) ([facility]) 02/2010 Osteoporosis, unspecified Other and unspecified hyperlipidemia [...] 20 Units subcutaneously as directed. PATIENT ASSISTANCE [facility]. (Patient not taking: Reported on 07/28/2023) Insulin [place]atham, Disposable, (BD ULTRA-FINE KELBY PEN NEEDLE) 32 [...] resumed beta sherita after got home from [facility] even thought she knows it was stopped due to bradycardia. She feels okay and denies problems with symptoms of bradycardia. Monitor HR and BP through nurse and monitor medications. Further evaluation and treatment as indicated. Given dementia issues, needs support from nurse and aides to stay at home. I spent a total of 83 minutes on the date of the service which included [id number] patient care, completing clinical documentation, obtaining and/or reviewing separately obtained history, performing a medically appropriate examination, counseling and educating the patient/family/caregiver, ordering medications, tests, or procedures, independently interpreting results (not separately reported), and communicating results to the patient/family/caregiver. Oumar Hassan MD documented in this encounter [facility] 07-23-2023 Miscellaneous Notes Signed order faxed to number provided and Sierra CARRIZALES from [facility] updated. Laura Sifuentes LPN Patient's request for [...] to be faxed to below number, then [facility] will decide if they will fund. Char Martinez LPN See if RX is okay as written then print for me to sign Sierra CARRIZALES [facility] called in and reports she is trying [...] She states they are going through the [facility], through the [facility] and they will not give assistance without a prescription. She reports provider can fax it to them before the appointment to fax # [phone]. I let her know that sometimes the provider has to have the office visit before they can send a prescription in. documented in this encounter [facility] 2023 Miscellaneous Notes Monique at [facility] aware of same. Ok to return call and let them know that yes, we will follow for [facility] orders. Ynai from [facility] calls and states that patient was discharged from [facility] on 06/26/2023 with the diagnosis of debility, failure to thrive, and hypoglycemia. Yani asking if provider willing to follow patient with orders for fpc, occupational therapy, physical therapy, and social work. If agreeable please give Yani a call back [phone]. Thank you, Belle Sanchez RN documented in this encounter [facility] 02-11-2023 Miscellaneous Notes Patient notified of results and provider's instructions. Patient verbalizes understanding. Elizabeth Segura LPN From pcp. Note that labs never popped into results to address since no signs of labs being doned or addressed with patient. Not sure why labs not [facility]. Her Cr was higher than usual. Should encourage patient to stay hydrated (though with her dementia, that may be difficult) and get labs repeated. She has / appointment with Dr. Cifuentes, so will have BMP ordered so she may do labs while there for that appointment documented in this encounter [facility] 02-01-2023 Miscellaneous Notes Pt changing rx to [...] Ninfa Aldana LPN documented in this encounter [facility] 01-26-2023 Miscellaneous Notes Kristy, if she calls [...] those over Medicaid income. Can assist with nursing home manager, home delivered meals, medical alert button. There is typically a wait list. AAA would complete a home visit to assess and see if patient meets requirements. In regards to bed bugs. 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 There are resources that help with tips for cleaning your home. Patient seen in echo today. Reports difficulty taking care of herself. Further reports bed bug infestation in home and inability to get rid of them. Note sent to SW for help on available resources if any. Also sent to PCP for FYI. documented in this encounter [facility] 01-14-2023 Note HNO ID: [id number] Author: Gurpreet Bar Service: ? Author Type: [...] Patient presents to clinic ambulating in [facility] Vasc: DP and PT pulses [...] RTC in 3-4 months. Gurpreet Bar DPM [facility] 01-14-2023 Note HNO ID: [id number] Author: Rayne Painter RN Service: ? Author Type: ? Type: Progress Notes Filed: 01/14/2023 11:33 AM Note Text: AMB ROOMING INTAKE FLOWSHEET DATA Patient presents with: Left Foot - Established Patient, Debridement of Nail Right Foot - Established Patient, Debridement of Nail Patient is due for a diabetic foot exam. [facility] 01-14-2023 History of Presen t illness Narrative [...] Type 2 diabetes mellitus with neurological manifestations ([facility]) Plan: Patient was seen and evaluated. Nails [...] diabetic foot exam. documented in this encounter [facility] 01-14-2023 Instructions Gurpreet Bar - 01/14/2023 11:22 [...] (or decreased sensation in your feet) a wool hanker should always cut your toenails. Be Careful [...] Go to your health care provider or wool hanker to treat these conditions. documented in this encounter [facility] 01-08-2023 Note HNO ID: [id number] Author: Oumar Hassan MD Service: ? Author Type: Physician Type: Progress Notes Filed: 02/08/2023 1:15 AM Note Text: This note was created using [employer]. Subjective Loni Galdamez is a 77 year [...] benign Internal hemorrhoids without mention of complication [place] (myocardial infarction) (HCC) 02/2010 Osteoporosis, unspecified Other [...] 20 Units subcutaneously as directed. PATIENT ASSISTANCE [facility]. Insulin [place]atham, Disposable, (BD ULTRA-FINE KELBY PEN NEEDLE) 32 [...] type (HCC) F03. (more content not included)... [facility] 01-08-2023 Instructions Oumar Hassan MD - 01/08/2023 [...] bowels and strength. documented in this encounter [facility] 01-08-2023 History of Presen t illness Narrative This note was created using [employer]. Subjective Loni Galdamez is a 77 year [...] benign Internal hemorrhoids without mention of complication [place] (myocardial infarction) (HCC) 02/2010 Osteoporosis, unspecified Other [...] 20 Units subcutaneously as directed. PATIENT ASSISTANCE [employer] [facility]. Insulin [place], Disposable, (BD ULTRA-FINE KELBY PEN NEEDLE) 32 [...] Oumar Hassan MD documented in this encounter [facility] 12-22-2022 Miscellaneous Notes Rec'd fax from [employer] [phone]. Pt does meet program eligibility requirements and is enrolled in [facility] until the end of 2022. documented in this encounter [facility] 12-03-2022 Note HNO ID: [id number] Author: Charla Hernandez LPN Service: ? Author Type: ? Type: Progress Notes Filed: 12/04/2022 8:15 AM Note Text: [employer] Care form was signed by Jerrica and faxed. [facility] 12-03-2022 History of Presen t illness Narrative [employer] Care form was signed by Jerrica and faxed. Patient and son stopped to see Sw to complete [employer] application for basaglar. Patient notes that she [...] was working with [employer] rep and careers adviser as she had received boxes of an old insulin that she used to take but no longer takes. Patient notes that [employer] rep had told her that she would send labels to send back medication. Patient notes that she never received labels and through insulin away. Patient reports that now she has received a bill for the insulin that they sent her that was from an old prescription. Sw and patient discussed that patient has nurse from [employer] that comes to see her once a year. Patient notes that she will reach out to the nurse to see what she needs to do regarding bill for insulin. documented in this encounter [facility] 12-03-2022 Note HNO ID: [id number] Author: MARGARITO Zuñiga Service: ? Author Type: Pole Framer Machine Type: Progress Notes Filed: 12/04/2022 8:15 AM Note Text: Patient and son stopped to see Sw to complete [employer] application for basaglar. Patient notes that she [...] was working with [employer] rep and careers adviser as she had received boxes of an old insulin that she used to take but no longer takes. Patient notes that [employer] rep had told her that she would send labels to send back medication. Patient notes that she never received labels and through insulin away. Patient reports that now she has received a bill for the insulin that they sent her that was from an old prescription. Sw and patient discussed that patient has nurse from [employer] that comes to see her once a year. Patient notes that she will reach out to the nurse to see what she needs to do regarding bill for insulin. [facility] 12-02-2022 Miscellaneous Notes Sw spoke with patient regarding [employer] application. Patient states that she has not filled out new [employer] application this year for her andrea. Sw made appt for tomorrow 12/03/22 @noon. Patient and son will bring in their income statements to write income out on forms. documented in this encounter [facility] 11-03-2022 Miscellaneous Notes TC made advising of below. Order to [facility] for transfusion. follow up in another encounter, will close this She is very anemic and needs transfusion 2 U PRBCs at [facility]. Should complete FOBT and schedule appt with [...] Lymph 1.00 - 4.00 k/uL 0.87 (L) Randolph% % 6.3 Abs Randolph <0.87 k/uL 0.51 Eosin% % 3.1 Abs [...] mg/dL 143 157 documented in this encounter [facility] 11-02-2022 Miscellaneous Notes Last office visit: 10/27/22 [...] pharmacy. No need to notify patient. [facility] documented in this encounter [facility] 10-29-2022 Miscellaneous Notes Patient contact per provider to let her know that her recent lab work showed H/H 7.2/25.1 and she will need to get a blood transfusion to bring her numbers back up. Patient was instructed to go to [facility] central registration on Wednesday to get type and/or crossmatch and then will be need to come back on for the transfusion. Outpatient infusion should contact her with time. Patient verbalized understanding. Form with labs faxed to [facility] outpatient infusion. documented in this encounter [facility] 10-27-2022 Note HNO ID: [id number] Author: Jerrica Quintanilla APRN.DEPARTMENT EDITOR Service: ? Author Type: Nurse Specialist Type: Progress Notes Filed: 10/27/2022 4:39 PM Note Text: SUBJECTIVE: COVID-19 VACCINE(1) Never done DTAP,TDAP,TD(1 - Tdap) Never done SHINGRIX VACCINE(1 of 2) Never done DILATED RETINAL EXAM due on 01/26/2019 URINE ALBUMIN:CREATININE RATIO due on 02/06/2022 DIABETIC FOOT EXAM due on 02/17/2022 INFLUENZA(1) due on 06/18/2022 ADVANCE DIRECTIVE DISCUSSION Never done HPI Loin Galdamez is a 75 year old female. [...] for Ischemic Heart Disease Aortic Valve Stenosis Drivability Technician (Current) Use of Insulin (Hcc) Presents for routine follow up visit. Son is in lobby. Was following with Alina Roque PharmD for diabetes mellitus. Currently with good control. Notes indicate need for appt with Dr. Suarez. Seen or scheduled appt: notes Educational Director: no Filler Leaf Cutter Long: Dr. Gu[facility] DIABETES MELLITUS: Without report of excessive [...] 1 tablet by mouth once daily. Insulin Chatham, Disposable, (BD ULTRA-FINE KELBY PEN NEEDLE) 32 gauge x 5/32 Inject Basaglar once daily (more content not included)... [facility] 10-27-2022 Instructions Jerrica Quintanilla APRN.CNS - 10/27/2022 11:47 AM EST Make appt with Dr. Suarez regarding anemia. Make an appointment with Dr Cifuentes to follow up aortic stenosis documented in this encounter [facility] 10-27-2022 History of Presen t illness Narrative [...] for Ischemic Heart Disease Aortic Valve Stenosis Drivability Technician (Current) Use of Insulin (Hcc) Presents for routine follow up visit. Son is in lobby. Was following with Alina Roque PharmD for diabetes mellitus. Currently with good control. Notes indicate need for appt with Dr. Suarez. Seen or scheduled appt: notes Educational Director: no Filler Leaf Cutter Long: Dr. Gu[facility] DIABETES MELLITUS: Without report of excessive [...] 1 tablet by mouth once daily. Insulin Chatham, Disposable, (BD ULTRA-FINE KELBY PEN NEEDLE) 32 [...] benign Internal hemorrhoids without mention of complication [place] (myocardial infarction) (HCC) 02/2010 Osteoporosis, unspecified Other [...] 4 - Moderate documented in this encounter [facility] 07-17-2022 Miscellaneous Notes Care Transition Back to [...] Alina Roque RPh documented in this encounter [facility] 06-27-2022 History of Presen t illness Narrative This note was created using Tipp24ter. Subjective Loni Galdamez is a 76 year [...] Has resumed. Spends over $110 per month. Dialysis Biomed Technician will not treat unless paid up front. [...] benign Internal hemorrhoids without mention of complication [place] (my[place]) ([facility]) 02/2010 Osteoporosis, unspecified Other and unspecified hyperlipidemia [...] 1 tablet by mouth once daily. Insulin Chatham, Disposable, (BD ULTRA-FINE KELBY PEN NEEDLE) 32 gauge x /32 Inject Basaglar once daily as directed nitroglycerin sublingual (NITROQUICK) 0.4 mg SL tablet DISSOLVE ONE(1) TABLET UNDER THE TOUNGUE NEEDED FOR CHEST PAIN,EVERY 5 MIN X3 insulin glargine (LANTUS SOLOSTAR, BASAGLAR KWIKPEN) 100 unit/mL (3 mL) Inject 20 Units subcutaneously as directed. PATIENT ASSISTANCE [facility]. clopidogrel (PLAVIX) 75 mg tablet Take 1 [...] Oumar Hassan MD documented in this encounter [facility] 06-02-2022 Miscellaneous Notes Okayed Pt reports she has been without Lasix for about 7 days and she has some swelling to legs. Short term supply sent to [facility]. Patient has been identified by name and [...] Lauryn Serrano RN documented in this encounter [facility] 05-21-2022 History of Presen t illness Narrative [...] plan of care. documented in this encounter [facility] 04-08-2022 History of Presen t illness Narrative [...] Objective: Patient presents to clinic ambulating in pending sale to [facility] Vasc: DP and PT pulses are faint [...] pain under toes the feels like a ute mountain. Zeynep Bullock LPN documented in this encounter [facility] 02-25-2022 Miscellaneous Notes AUNDREA: 09/19/2021 Last refill: [...] Philly Poon Pss documented in this encounter [facility] 02-14-2022 Miscellaneous Notes Noted The following approved [...] 20 Units subcutaneously as directed. PATIENT ASSISTANCE [facility]. KARLY: No Authorizing Provider: OUMAR HASSAN clopidogrel (PLAVIX) 75 mg tablet 90 tablet 3 Sig: Take 1 tablet by mouth once daily. KARLY: No Authorizing Provider: OUMAR HASSAN clopidogrel (PLAVIX) 75 mg tablet 7 tablet 0 Sig: Take 1 tablet by mouth once daily. Authorizing Provider: OUMAR HASSAN MD Spoke with pt and she states she spoke with [facility] and they do not have the prescription from 12-09-21. Please send new rx and she will need a short term to local pharmacy for 1 week. TC to patient with no answer. Unable to leave a VM. Please try again later. STEFANI Main She has an active script for plavix for 1 year supply sent to [facility], does she need it ordered again? Does insulin script need to be printed or sent to [facility]? Patient is questioning why she can not take Plavix?? She wanted to order it but is not sure if she should be taking this. Contact patient [phone] Alix Aldana Pss documented in this encounter [facility] documented as of this encounter (statuses as of 02/16/2022) [facility] of Past illness Narrative* Problem Noted Date Resolved Date Contusion of foot 05/28/2006 12/19/2020 OVERWEIGHT 07/28/2005 12/19/2020 Type II or unspecified type diabetes mellitus with neurological manifestations, uncontrolled(250.62) 07/28/200504/17 documented as of this encounter (statuses as of 02/26/2022) [facility] of Past illness Narrative* Problem Noted Date Resolved Date Contusion of foot 05/28/2006 12/19/2020 OVERWEIGHT 07/28/2005 12/19/2020 Type II or unspecified type diabetes mellitus with neurological manifestations, uncontrolled(250.62) 07/28/200504/17 documented as of this encounter (statuses as of 04/09/2022) [facility] History of Past illness Narrative* Problem Noted Date Resolved Date Contusion of foot 05/28/2006 12/19/2020 OVERWEIGHT 07/28/2005 12/19/2020 Type II or unspecified type diabetes mellitus with neurological manifestations, uncontrolled(250.62) 07/28/200504/17 documented as of this encounter (statuses as of 05/22/2022) [address] History of Past illness Narrative* Problem Noted Date Resolved Date Contusion of foot 05/28/2006 12/19/2020 OVERWEIGHT 07/28/2005 12/19/2020 Type II or unspecified type diabetes mellitus with neurological manifestations, uncontrolled(250.62) 07/28/200504/17 documented as of this encounter (statuses as of 06/02/2022) [address] History of Past illness Narrative* Problem Noted Date Resolved Date Contusion of foot 05/28/2006 12/19/2020 OVERWEIGHT 07/28/2005 12/19/2020 Type II or unspecified type diabetes mellitus with neurological manifestations, uncontrolled(250.62) 07/28/200504/17 documented as of this encounter (statuses as of 07/17/2022) [address] History of Past illness Narrative* Problem Noted Date Resolved Date Contusion of foot 05/28/2006 12/19/2020 OVERWEIGHT 07/28/2005 12/19/2020 Type II or unspecified type diabetes mellitus with neurological manifestations, uncontrolled(250.62) 07/28/200504/17 documented as of this encounter (statuses as of 08/13/2022) [address] History of Past illness Narrative* Problem Noted Date Resolved Date Contusion of foot 05/28/2006 12/19/2020 OVERWEIGHT 07/28/2005 12/19/2020 Type II or unspecified type diabetes mellitus with neurological manifestations, uncontrolled(250.62) 07/28/200504/17 documented as of this encounter (statuses as of 10/28/2022) [address] History of Past illness Narrative* Problem Noted Date Resolved Date Contusion of foot 05/28/2006 12/19/2020 OVERWEIGHT 07/28/2005 12/19/2020 Type II or unspecified type diabetes mellitus with neurological manifestations, uncontrolled(250.62) 07/28/200504/17 documented as of this encounter (statuses as of 10/29/2022) [address] History of Past illness Narrative* Problem Noted Date Resolved Date Contusion of foot 05/28/2006 12/19/2020 OVERWEIGHT 07/28/2005 12/19/2020 Type II or unspecified type diabetes mellitus with neurological manifestations, uncontrolled(250.62) 07/28/200504/17 documented as of this encounter (statuses as of 11/02/2022) [address] History of Past illness Narrative* Problem Noted Date Resolved Date Contusion of foot 05/28/2006 12/19/2020 OVERWEIGHT 07/28/2005 12/19/2020 Type II or unspecified type diabetes mellitus with neurological manifestations, uncontrolled(250.62) 07/28/200504/17 documented as of this encounter (statuses as of 11/03/2022) [address]2006 History of Past illness Narrative* Problem Noted Date Resolved Date Contusion of foot 05/28/2006 12/19/2020 OVERWEIGHT 07/28/2005 12/19/2020 Type II or unspecified type diabetes mellitus with neurological manifestations, uncontrolled(250.62) 07/28/200504/17 documented as of this encounter (statuses as of 12/02/2022) [address]2006 History of Past illness Narrative* Problem Noted Date Resolved Date Contusion of foot 05/28/2006 12/19/2020 OVERWEIGHT 07/28/2005 12/19/2020 Type II or unspecified type diabetes mellitus with neurological manifestations, uncontrolled(250.62) 07/28/200504/17 documented as of this encounter (statuses as of 12/04/2022) [address] History of Past illness Narrative* Problem Noted Date Resolved Date Contusion of foot 05/28/2006 12/19/2020 OVERWEIGHT 07/28/2005 12/19/2020 Type II or unspecified type diabetes mellitus with neurological manifestations, uncontrolled(250.62) 07/28/200504/17 documented as of this encounter (statuses as of 12/23/2022) [address] History of Past illness Narrative* Problem Noted Date Resolved Date Contusion of foot 05/28/2006 12/19/2020 OVERWEIGHT 07/28/2005 12/19/2020 Type II or unspecified type diabetes mellitus with neurological manifestations, uncontrolled(250.62) 07/28/200504/17 documented as of this encounter (statuses as of 01/14/2023) [place] [address] History of Past illness Narrative* Problem Noted Date Resolved Date Contusion of foot 05/28/2006 12/19/2020 OVERWEIGHT 07/28/2005 12/19/2020 Type II or unspecified type diabetes mellitus with neurological manifestations, uncontrolled(250.62) 07/28/200504/17 documented as of this encounter (statuses as of 02/01/2023) [address] History of Past illness Narrative* Problem Noted Date Resolved Date Contusion of foot 05/28/2006 12/19/2020 OVERWEIGHT 07/28/2005 12/19/2020 Type II or unspecified type diabetes mellitus with neurological manifestations, uncontrolled(250.62) 07/28/200504/17 documented as of this encounter (statuses as of 02/08/2023) [address] History of Past illness Narrative* Problem Noted Date Resolved Date Contusion of foot 05/28/2006 12/19/2020 OVERWEIGHT 07/28/2005 12/19/2020 Type II or unspecified type diabetes mellitus with neurological manifestations, uncontrolled(250.62) 07/28/200504/17 documented as of this encounter (statuses as of 02/11/2023) [address] History of Past illness Narrative* Problem Noted Date Resolved Date Contusion of foot 05/28/2006 12/19/2020 OVERWEIGHT 07/28/2005 12/19/2020 Type II or unspecified type diabetes mellitus with neurological manifestations, uncontrolled(250.62) 07/28/200504/17 documented as of this encounter (statuses as of 04/08/2023) [address] History of Past illness Narrative* Problem Noted Date Diagnosed Date Resolved Date Contusion of foot 05/28/2006 12/19/2020 OVERWEIGHT 07/28/2005 12/19/2020 Type II or unspecified type diabetes mellitus with neurological manifestations, uncontrolled(250.62) 07/28/2005 04/28/2013 documented as of this encounter (statuses as of 2023) [address] History of Past illness Narrative* Problem Noted Date Diagnosed Date Resolved Date Contusion of foot 05/28/2006 12/19/2020 OVERWEIGHT 07/28/2005 12/19/2020 Type II or unspecified type diabetes mellitus with neurological manifestations, uncontrolled(250.62) 07/28/2005 04/28/2013 documented as of this encounter (statuses as of 07/24/2023) [address] History of Past illness Narrative* Problem Noted Date Diagnosed Date Resolved Date Contusion of foot 05/28/2006 12/19/2020 OVERWEIGHT 07/28/2005 12/19/2020 Type II or unspecified type diabetes mellitus with neurological manifestations, uncontrolled(250.62) 07/28/2005 04/28/2013 documented as of this encounter (statuses as of 08/02/2023) [address] History of Past illness Narrative* Problem Noted Date Diagnosed Date Resolved Date Contusion of foot 05/28/2006 12/19/2020 OVERWEIGHT 07/28/2005 12/19/2020 Type II or unspecified type diabetes mellitus with neurological manifestations, uncontrolled(250.62) 07/28/2005 04/28/2013 documented as of this encounter (statuses as of 08/05/2023) [address] History of Past illness Narrative* Problem Noted Date Diagnosed Date Resolved Date Contusion of foot 05/28/2006 12/19/2020 OVERWEIGHT 07/28/2005 12/19/2020 Type II or unspecified type diabetes mellitus with neurological manifestations, uncontrolled(250.62) 07/28/2005 04/28/2013 documented as of this encounter (statuses as of 08/18/2023) [address] History of Past illness Narrative* Problem Noted Date Diagnosed Date Resolved Date Contusion of foot 05/28/2006 12/19/2020 OVERWEIGHT 07/28/2005 12/19/2020 Type II or unspecified type diabetes mellitus with neurological manifestations, uncontrolled(250.62) 07/28/2005 04/28/2013 documented as of this encounter (statuses as of 08/24/2023) [address] History of Past illness Narrative* Problem Noted Date Diagnosed Date Resolved Date Contusion of foot 05/28/2006 12/19/2020 OVERWEIGHT 07/28/2005 12/19/2020 Type II or unspecified type diabetes mellitus with neurological manifestations, uncontrolled(250.62) 07/28/2005 04/28/2013 documented as of this encounter (statuses as of 09/28/2023) [facility] note* Diagnosis Onychomycosis- Primary Dermatophytosis of nail Pain in toe of left foot Pain in limb Pain in toe of right foot Pain in limb Neuroma Other benign neoplasm of connective and other soft tissue of unspecified site [facility] Diagnosis Procedure not carried out- Primary Procedure not carried out for other reasons [facility] Diagnosis 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 Type II or unspecified type diabetes mellitus with neurological manifestations, not stated as uncontrolled Mixed hyperlipidemia Essential hypertension Unspecified essential hypertension Moderate dementia without behavioral disturbance, psychotic disturbance, mood disturbance, or anxiety, unspecified dementia type [facility] Diagnosis Encounter for immunization- Primary Need [...] serum enzyme levels documented in this encounter [facility] note* Diagnosis Onychomycosis- Primary Dermatophytosis of nail Pain in toe of left foot Pain in limb Pain in toe of right foot Pain in limb 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) Type II or unspecified type diabetes mellitus with neurological manifestations, not stated as uncontrolled [facility] Diagnosis Type 2 diabetes mellitus with [...] kidney and ureter [facility] Diagnosis 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 Type II or unspecified type diabetes mellitus with neurological manifestations, not stated as uncontrolled Mixed hyperlipidemia Anemia, unspecified type Encounter for long-term current use of medication [facility] Diagnosis Type 2 diabetes mellitus with [...] kidney disease (HCC) [facility] Outpatient Procedure (Routine) - Authorized Specialty Diagnoses / Procedures Referred By Braeden mcknight Referred To [facility] Diagnoses Aortic valve stenosis, etiology of cardiac valve disease unspecified Procedures ECHO ECHO TTHRC R-T 2D W/WOM-MODE COMPL SPEC&COLR D Oumar Hassan MD [address] [place] [address] [facility] [place] [address] [place] [address] Referral ID Status Reason Start Date Expiration Date Visits Requested Visits Authorized [id number] Authorized Auto-Generat ed Referral 01/22/2023 04/22/2023 1 1 * Medication Prior Authorization - Closed Specialty Diagnoses / Procedures Referred By Braeden mcknight Referred To Contact Oumar Hassan MD [facility] [place] [address] Referral ID Status Reason Start Date Expiration Date Visits Re quested Visits Authorized [id number] Closed 1 1 [facility] Advance Directives Documents on File Type Date Recorded Patient Phone Technician Expl anation Advance Directive(s) Reason for Referral Specialty Diagnoses / Procedures Referred By Braeden mcknight Referred To Contact General Surgery Diagnoses Anemia, unspecified type Procedures CONSULT TO GENERAL SURGERY OFFICE/OUTPATIENT [facility] 60-74 MINUTES QuintanillaJerrica, CABLE ARMORER OPERATOR.DEPARTMENT EDITOR [address] [place] [address] Referral ID Status Reason Start Date Expiration Date Visits Requested Visits Authorized [id number] Pending Review PCP Requested Referral 10/27/2022 10/27/2023 1 1 Specialty Diagnoses / Procedures Referred By Braeden mcknight Referred To Contact Ophthalmology Diagnoses Screening for diabetic retinopathy 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) Procedures CONSULT TO OPHTHALMOLOGY OFFICE/OUTPATIENT [facility] 60-74 MINUTES QuintanillaJerrica rascon, CABLE ARMORER OPERATOR.DEPARTMENT EDITOR [address] [place] [address] Referral ID Status Reason Start Date Expiration Date Visits Requested Visits Authorized [id number] Pending Review PCP Requested Referral 10/27/2022 10/27/2023 1 1 Specialty Diagnoses / Procedures Referred By Braeden mcknight Referred To Contact Rosangela Cui APRN.SPRAY GUNNER [address] [place] [address] Referral ID Status Reason Start Date Expiration Date V isits Requested Visits Authorized [id number] Pending Review 1 1 Summary Purpose Family History No Family History Records Found Additional Source Comments Source Comments (unrecognize d section and content) In the event this informatio n is protected by the Federal Confidentiality of Alcohol and Drug Abuse Patient Records regulations: The Federal rules restrict any use of the information to criminally investigate or prosecute any alcohol or drug abuse patient.[facility] the event this information is protected by the Federal Confidentiality of Alcohol and Drug Abuse Patient Records regulations: The Federal rules restrict any use of the information to criminally investigate or prosecute any alcohol or drug abuse patient.[facility] the event this information is protected by the Federal Confidentiality of Alcohol and Drug Abuse Patient Records regulations: The Federal rules restrict any use of the information to criminally investigate or prosecute any alcohol or drug abuse patient.[facility] the event this information is protected by the Federal Confidentiality of Alcohol and Drug Abuse Patient Records regulations: The Federal rules restrict any use of the information to criminally investigate or prosecute any alcohol or drug abuse patient.[facility] the event this information is protected by the Federal Confidentiality of Alcohol and Drug Abuse Patient Records regulations: The Federal rules restrict any use of the information to criminally investigate or prosecute any alcohol or drug abuse patient.[facility] the event this information is protected by the Federal Confidentiality of Alcohol and Drug Abuse Patient Records regulations: The Federal rules restrict any use of the information to criminally investigate or prosecute any alcohol or drug abuse patient.[facility] the event this information is protected by the Federal Confidentiality of Alcohol and Drug Abuse Patient Records regulations: The Federal rules restrict any use of the information to criminally investigate or prosecute any alcohol or drug abuse patient.[facility] the event this information is protected by the Federal Confidentiality of Alcohol and Drug Abuse Patient Records regulations: The Federal rules restrict any use of the information to criminally investigate or prosecute any alcohol or drug abuse patient.[facility] the event this information is protected by the Federal Confidentiality of Alcohol and Drug Abuse Patient Records regulations: The Federal rules restrict any use of the information to criminally investigate or prosecute any alcohol or drug abuse patient.[facility] the event this information is protected by the Federal Confidentiality of Alcohol and Drug Abuse Patient Records regulations: The Federal rules restrict any use of the information to criminally investigate or prosecute any alcohol or drug abuse patient.[facility] System[facility] the event this information is protected by the Federal Confidentiality of Alcohol and Drug Abuse Patient Records regulations: The Federal rules restrict any use of the information to criminally investigate or prosecute any alcohol or drug abuse patient.[facility] the event this information is protected by the Federal Confidentiality of Alcohol and Drug Abuse Patient Records regulations: The Federal rules restrict any use of the information to criminally investigate or prosecute any alcohol or drug abuse patient.[facility] the event this information is protected by the Federal Confidentiality of Alcohol and Drug Abuse Patient Records regulations: The Federal rules restrict any use of the information to criminally investigate or prosecute any alcohol or drug abuse patient.[facility] the event this information is protected by the Federal Confidentiality of Alcohol and Drug Abuse Patient Records regulations: The Federal rules restrict any use of the information to criminally investigate or prosecute any alcohol or drug abuse patient.[facility] the event this information is protected by the Federal Confidentiality of Alcohol and Drug Abuse Patient Records regulations: The Federal rules restrict any use of the information to criminally investigate or prosecute any alcohol or drug abuse patient.[facility] System[facility] the event this information is protected by the Federal Confidentiality of Alcohol and Drug Abuse Patient Records regulations: The Federal rules restrict any use of the information to criminally investigate or prosecute any alcohol or drug abuse patient.[facility] System[facility] the event this information is protected by the Federal Confidentiality of Alcohol and Drug Abuse Patient Records regulations: The Federal rules restrict any use of the information to criminally investigate or prosecute any alcohol or drug abuse patient.[facility] the event this information is protected by the Federal Confidentiality of Alcohol and Drug Abuse Patient Records regulations: The Federal rules restrict any use of the information to criminally investigate or prosecute any alcohol or drug abuse patient.[facility] the event this information is protected by the Federal Confidentiality of Alcohol and Drug Abuse Patient Records regulations: The Federal rules restrict any use of the information to criminally investigate or prosecute any alcohol or drug abuse patient.[facility] the event this information is protected by the Federal Confidentiality of Alcohol and Drug Abuse Patient Records regulations: The Federal rules restrict any use of the information to criminally investigate or prosecute any alcohol or drug abuse patient.[facility] SystemIn the event this information is protected by the Federal Confidentiality of Alcohol and Drug Abuse Patient Records regulations: The Federal rules restrict any use of the information to criminally investigate or prosecute any alcohol or drug abuse patient.[facility] SystemIn the event this information is protected by the Federal Confidentiality of Alcohol and Drug Abuse Patient Records regulations: The Federal rules restrict any use of the information to criminally investigate or prosecute any alcohol or drug abuse patient.[facility] SystemIn the event this information is protected by the Federal Confidentiality of Alcohol and Drug Abuse Patient Records regulations: The Federal rules restrict any use of the information to criminally investigate or prosecute any alcohol or drug abuse patient.[facility] SystemIn the event this information is protected by the Federal Confidentiality of Alcohol and Drug Abuse Patient Records regulations: The Federal rules restrict any use of the information to criminally investigate or prosecute any alcohol or drug abuse patient.[facility] SystemIn the event this information is protected by the Federal Confidentiality of Alcohol and Drug Abuse Patient Records regulations: The Federal rules restrict any use of the information to criminally investigate or prosecute any alcohol or drug abuse patient.[facility] SystemIn the event this information is protected by the Federal Confidentiality of Alcohol and Drug Abuse Patient Records regulations: The Federal rules restrict any use of the information to criminally investigate or prosecute any alcohol or drug abuse patient.[facility] Reason for Visit (unrecogniz ed section and content) Reason Onset Date Comments Refill Request 02/25/2022 Reason Comments Established Patient Follow Up Reason Onset Date Comments Refill Request 06/02/2022 Reason Comments Transition Of Care Reason Comments Follow Up Reason Comments Follow Up Reason Comments Results Reason Comments Refill Request New RX's to be sent to [facility] Reason Comments Results Labs, needs transfus ion [facility] Reason Comments prescription assistance Reason Comments approval from [facility] Reason Comments Established Patient Debridement of [...] t Referred To Contact INTERNAL MEDICINE Diagnoses [facility] hospital visit Procedures 4C EST Self 4c [place] [address] [place] [address] Referral ID Status Reason Start Date Expiration Date Visits Requested Visits Authorized [id number] Outside PCP OON/Self Pay Override 07/01/2023 12/28/2023 1 1 Reason Comments Low heart rate Reason Comments blood sugars climbing higher Reason Onset Date Comments Refill Request 09/27/2023 Care Teams (unrecognized sec tion and content) Binitrotoluene Operator Relationship Specialty Start Date End Date Oumar Hassan MD [address] [place] [address] PCP - General Internal Medicine [facility]10 [facility] [address] [place] [address] Pharmacist Pharmacy 02/14/20 Binitrotoluene Operator Relationship Specialty Start Date End Date Oumar Hassan MD [address] [place] [address] PCP - General Internal Medicine 09/24/10 [facility] [address] [place] [address] Pharmacist Pharmacy 02/14/20 Binitrotoluene Operator Relationship Specialty Start Date End Date Oumar Hassan MD [address] [place] [address] PCP - General Internal Medicine 09/24/10 [facility] [address] [place] [address] Pharmacist Pharmacy 02/14/20 Binitrotoluene Operator Relationship Specialty Start Date End Date Oumar Hassan MD [address] [place] [address] PCP - General Internal Medicine 09/24/10 RashaunAlina, [facility] [address] [place] [address] Pharmacist Pharmacy 02/14/20 Binitrotoluene Operator Relationship Specialty Start Date End Date Oumar Hassan MD [address] [place] [address] PCP - General Internal Medicine 09/24/10 Binitrotoluene Operator Relationship Specialty Start Date End Date Oumar Hassan MD [address] [place] [address] PCP - General Internal Medicine 09/24/10 Alina Roque, [facility] [address] [place] [address] Pharmacist Pharmacy 02/14/20 07/16/22 Binitrotoluene Operator Relationship Specialty Start Date End Date Oumar Hassan MD [address] [place] [address] PCP - General Internal Medicine 09/24/10 Binitrotoluene Operator Relationship Specialty Start Date End Date Oumar Hassan MD [address] [place] [id number] PCP - General Internal Medicine 09/24/10 Binitrotoluene Operator Relationship Specialty Start Date End Date Oumar Hassan MD [address] [place] [id number] PCP - General Internal Medicine 09/24/10 Binitrotoluene Operator Relationship Specialty Start Date End Date Oumar Hassan MD [address] [place] [id number] PCP - General Internal Medicine 09/24/10 Binitrotoluene Operator Relationship Specialty Start Date End Date Oumar Hassan MD [address] [place] [address] PCP - General Internal Medicine 09/24/10 Binitrotoluene Operator Relationship Specialty Start Date End Date Oumar Hassan MD [address] [place] [address] PCP - General Internal Medicine 09/24/10 Binitrotoluene Operator Relationship Specialty Start Date End Date Oumar Hassan MD [address] [place] [id number] PCP - General Internal Medicine 09/24/10 Binitrotoluene Operator Relationship Specialty Start Date End Date Oumar Hassan MD [address] [place] [id number] PCP - General Internal Medicine 09/24/10 Binitrotoluene Operator Relationship Specialty Start Date End Date Oumar Hassan MD [address] [place] [address] PCP - General Internal Medicine 09/24/10 Binitrotoluene Operator Relationship Specialty Start Date End Date Oumar Hassan MD [address] [place] [address] PCP - General Internal Medicine 09/24/10 Binitrotoluene Operator Relationship Specialty Start Date End Date Oumar Hassan MD [address] [place] [address] PCP - General Internal Medicine 09/24/10 Binitrotoluene Operator Relationship Specialty Start Date End Date Oumar Hassan MD [address] [place] [address] PCP - General Internal Medicine 09/24/10 Binitrotoluene Operator Relationship Specialty Start Date End Date Oumar Hassan MD [address] [facility] [place] [address] PCP - General Internal Medicine 09/24/10 Binitrotoluene Operator Relationship Specialty Start Date End Date Oumar Hassan MD [address] [place] [address] PCP - General Internal Medicine 09/24/10 INFORMATION [...] BE BASED ON THE PRIMARY CLINICAL RECORDS. [facility] [employer] [facility] provides no warranty or guarantee of the accuracy or completeness of information in this document.
--- NOTE | 2023-11-03 01:22 | PCM.RX.CS ---
Consult Antibiotic Management Pharmacy has been consulted to manage selected antibiotic: Vancomycin Type of Intervention Type of Consult: New start Labs Labs: Sodium 137 mmol/L (136-145) 11/02/23 22:15 Potassium 4.6 mmol/L (3.5-5.1) 11/02/23 22:15 Chloride 106 mmol/L (98-107) 11/02/23 22:15 Carbon Dioxide 9.0 mmol/L (21.0-32.0) L* 11/02/23 22:15 Anion Gap 22 (5-15) H 11/02/23 22:15 BUN 153 mg/dL (7-18) H* 11/02/23 22:15 Creatinine 7.81 mg/dL (0.55-1.02) H* 11/02/23 22:15 Est GFR (MDRD) Af Amer 6 mL/min (>60) L 11/02/23 22:15 Est GFR (MDRD) Non-Af 5 mL/min (>60) L 11/02/23 22:15 BUN/Creatinine Ratio 19.6 RATIO (10-20) 11/02/23 22:15 Glucose 190 mg/dL (74-106) H 11/02/23 22:15 Microbiology Microbiology: Microbiology 11/02/23 21:00 Mucosa - Nasopharyngeal SARS-CoV-2, Influenza & RSV (PCR) - Final Dosing Weight Weight used for dosin.7 kg Estimated Creatinine Clearance Estimated Creatinine Clearance: 5.1 Pharmacy Plan for Drug Dosing Pharmacy Plan for Drug Dosing: Pharmacy Service will continue to monitor and adjust dosing as required. 1750 MG DOSE GIVEN IN ER. CRCl 5.1. NOT ON DIALYSIS, DRAW RANDOM LEVEL ON 11/04 @ 0600 Follow-Up Labs Follow-Up Labs: Trough: Vancomycin Date/Time Labs Ordered Labs to be done on [date and time ordered]: 11/04 @ 0600
--- NOTE | 2023-11-03 02:07 | ED.RN ---
report called to ICU nurseVashti
[2023-11-03 02:25] LABS: Reflex Lactate? Y
[2023-11-03] MEDS: HEPARIN/D5w 25,000 UNITS 25,000 UNITS/250 ML IV.SOLN. 10 UNITS CONT INF (03:14)
[2023-11-03 03:28] LABS: Base Excess -21 mmol/L (-2 to +2); Bicarbonate 7.8 mmol/L (22-26); Blood Gas Specimen Type ART; Mode AC; O2 Delivery Device Adult Vent; PEEP 5; PO2 211 mmHG (75-100); RR 16; SITE R Brach; SO2 100 % (95-99); Total Carbon Dioxide 8 mmol/L; pCO2 20.4 mmHg (35-45); pH 7.19 (7.35-7.45)
[2023-11-03 03:35] LABS: Troponin-I HS 266 pg/mL (3.0-54.0)
--- NOTE | 2023-11-03 04:15 | RAD_ITS ---
EXAM: XR CHEST, 1 VIEW CLINICAL INDICATION: Sepsis with aspiration TECHNIQUE: Frontal view of the chest. COMPARISON: November 02, 2023 at 10:28 PM. FINDINGS: LUNGS AND PLEURAL SPACES: Mild pulmonary hypoinflation. Suspicion of a small faintly dense EKG sticker at the right upper lung field versus other artifact, faintly nodular 1.2 cm focus is not seen yesterday. No definite infiltrates or effusions. No pneumothorax. HEART: Unremarkable. Cardiac silhouette not enlarged. MEDIASTINUM: Central airways and mediastinal contour are unremarkable. BONES/JOINTS: Unremarkable. No acute fracture. SOFT TISSUES: Unremarkable. TUBES, LINES AND DEVICES: The tip of the endotracheal tube is 1.3 cm superior to the carinal branching. The enteric tube tip and side-port are in the proximal half of the stomach. RAD/Chest 1 View (Portable) IMPRESSION: 1. No suspicious infiltrates. 2. Adequately positioned endotracheal and enteric tube. 3. Standard PA and lateral views are suggested when clinically feasible to evaluate for subtle nodules versus artifacts. Electronically Signed: Dorothea Jane MD at 8:46 EST ,
[2023-11-03] MEDS: Sodium Bicarbonate 150 MEQ in Dextrose 5%-Water (1000mL Bag) 1,000 ML IV ×3 (04:18→19:08)
[2023-11-03 04:55] LABS: Troponin-I HS 266 pg/mL (3.0-54.0)
--- NOTE | 2023-11-03 05:45 | RAD_ITS ---
EXAM: XR CHEST, 1 VIEW CLINICAL INDICATION: Moved ET tube TECHNIQUE: Frontal view of the chest. COMPARISON: December 04, 2023 4:20 AM. FINDINGS: LUNGS AND PLEURAL SPACES: Unremarkable. No consolidation or edema. No pneumothorax. No effusion. HEART: Unremarkable. Cardiac silhouette not enlarged. MEDIASTINUM: Central airways and mediastinal contour are unremarkable. BONES/JOINTS: Suspicion of at least one compression deformity of the lower thoracic spine but it is not well seen. SOFT TISSUES: Unremarkable. TUBES, LINES AND DEVICES: Mildly low lung volumes. There is multiple external tubing over the right chest and EKG leads. No convincing infiltrate or effusion. The tip of the endotracheal tube is estimated to be 2.8 cm superior to the carinal branching. The enteric tube tip is seen in the proximal body of the stomach, side port in the stomach. UPPER ABDOMEN: Cholecystectomy clips. RAD/Chest 1 View (Portable) IMPRESSION: Well-positioned endotracheal and enteric tubes. Otherwise stable chest. Electronically Signed: Dorothea Jane MD at 7:21 EST ,
[2023-11-03 05:56] LABS: Base Excess -18 mmol/L (-2 to +2); Bicarbonate 8.8 mmol/L (22-26); Blood Gas Specimen Type ART; Mode AC; O2 Delivery Device Adult Vent; PEEP 5; PO2 212 mmHG (75-100); RR 16; SITE L Brach; SO2 100 % (95-99); Total Carbon Dioxide 9 mmol/L; pCO2 17.9 mmHg (35-45)
[2023-11-03 06:21] LABS: Prealbumin 14.3 mg/dL (20.0-40.0)
--- NOTE | 2023-11-03 06:23 | NURSING ---
Contacted patient's son, Song Galdamez. Updated him and let him know that he was more than welcome to come in today to ask any questions he has and see her.
--- NOTE | 2023-11-03 07:10 | PN.HOSP_ITS ---
Reason for Visit Reason for Visit: Diagnoses Sepsis, unspecified organism (11/03/23) Dehydration (11/03/23) Acidosis, unspecified (11/03/23) Metabolic encephalopathy (11/03/23) Acute respiratory failure with hypoxia (11/03/23) Respiratory failure, unspecified, unspecified whether with hypoxia or hypercapnia (11/03/23) Acute kidney failure with tubular necrosis (11/03/23) Acute kidney failure, unspecified (11/03/23) Severe sepsis with septic shock (11/03/23) Other specified abnormal findings of blood chemistry (11/03/23) Subjective Subjective Patient intubated, not sedated but not reactive, had seizure this a.m., currently has EEG Objective Data Objective Data Vital Signs: Vital Signs Temp Pulse Resp BP Pulse Ox O2 Del Method FiO2 97.7 F L 91 17 94/56 L 99 Mechanical Ventilator 30 11/03/23 07:00 11/03/23 07:00 11/03/23 07:00 11/03/23 07:00 11/03/23 07:00 11/03/23 07:00 11/03/23 07:00 Oxygen Delivery Method Mechanical Ventilator Weight: 69.8 kg Body Mass Index (BMI) 30.0 Intake & Output: Intake and Output for Last 24 Hours 11/01/23 11/02/23 11/03/23 23:59 23:59 23:59 Intake Total 1999 1667.5 / 1667.5 Balance 1999 1667.5 / 1667.5 Lab / Micro Data 11/03/23 08:36 11/03/23 08:15 Labs: Laboratory Results - last 24 hr 11/02/23 20:15: WBC 11.4 H, RBC 3.35 L, Hgb 9.5 L, Hct 31.3 L, MCV 93.4, MCH 28.4, MCHC 30.4 L, RDW Std Deviation 69.3 H, RDW Coeff of Deep 20.4 H, Plt Count 319, MPV 11.8, Immature Gran % (Auto) 1.100 H, Neut % (Auto) 89.9 H, Lymph % (Auto) 5.9 L, Simpson % (Auto) 2.8, Eos % (Auto) 0.0, Baso % (Auto) 0.3, Absolute Neuts (auto) 10.3 H, Absolute Lymphs (auto) 0.68 L, Nucleated RBC % 0, Platelet Estimate ADEQUATE, RBC Morphology N CHROM, Hypochromasia 1+, Anisocytosis 1+, Macrocytosis 1+, [place] Cells 1+, Acanthocytes (Spur) 1+, PT 18.7 H, INR 1.6, APTT 35.8, Sodium Cancelled, Potassium Cancelled, Chloride Cancelled, Carbon Dioxide Cancelled, Anion Gap Cancelled, BUN Cancelled, Creatinine Cancelled, Estim Creat Clear Calc Cancelled, Est GFR (MDRD) Af Amer Cancelled, Est GFR (MDRD) Non-Af Cancelled, BUN/Creatinine Ratio Cancelled, Glucose Cancelled, Calcium Cancelled, Total Bilirubin Cancelled, AST Cancelled, ALT Cancelled, Alkaline Phosphatase Cancelled, Troponin I High Sens Cancelled, Total Protein Cancelled, Albumin Cancelled, Globulin Cancelled, Albumin/Globulin Ratio Cancelled 11/02/23 21:00: Urine Color Yellow, Urine Clarity Cloudy, Urine pH 5.0, Ur Specific [place] 1.020, Urine Protein 30 H, Urine Glucose (UA) 50 H, Urine Ketones 5 H, Urine Occult Blood 10 H, Urine Nitrite Negative, Urine Bilirubin Ne gative, Urine Urobilinogen Normal, Ur Leukocyte Esterase 500 H, Urine RBC 0 S EEN, Urine WBC 25-50 SEEN, Ur Squamous Epith Cells 10-25 SEEN, Urine Bacteria 0 SEEN, Hyaline Casts 25-50 SEEN, Urine Mucus 0 SEEN 11/02/23 21:10: Lactic Acid Cancelled 11/02/23 22:15: Sodium 137, Potassium 4.6, Chloride 106, Carbon Dioxide 9.0 L*, Anion Gap 22 H, BUN 153 H*, Creatinine 7.81 H*, Estim Creat Clear Calc 5.13, Est GFR (MDRD) Af Amer 6 L, Est GFR (MDRD) Non-Af 5 L, BUN/Creatinine Ratio 19.6, Glucose 190 H, Lactic Acid 4.2 H*, Calcium 7.6 L, Total Bilirubin 0.40, AST 38 H , ALT 19, Alkaline Phosphatase 87, Troponin I High Sens 249 H*, Total Protein 6.4, Albumin 2.5 L, Globulin 3.9, Albumin/Globulin Ratio 0.6 L 11/02/23 22:33: Total Creatine Kinase 388 H 11/03/23 02:55: Lactic Acid 2.0, Troponin I High Sens 266 H* 11/03/23 04:20: Troponin I High Sens 266 H*, Prealbumin 14.3 L Micro: Microbiology 11/02/23 21:00 Urine Catheter - Maguire Legionella Antigen - Final 11/02/23 21:00 Urine Catheter - Maguire Streptococcus pneumoniae Antigen (M - Final 11/02/23 21:00 Mucosa - Nasopharyngeal SARS-CoV-2, Influenza & RSV (PCR) - Final ABG Data ABG results: ABG 11/02/23 11/03/23 11/03/23 22:03 03:24 05:49 Specimen Type ART ART ART Sample Site L Fem R Brach L Brach pH 7.18 L* 7.19 L* 7.30 L Bicarbonate Actual 7.3 L 7.8 L 8.8 L Total CO2 8 8 9 Base Excess -21 L -21 L -18 L O2 Saturation 100 H 100 H 100 H O2 % 40.0 40.0 40.0 ABG pCO2 19.4 L 20.4 L 17.9 L* ABG pO2 235 H 211 H 212 H Romel Test N/A Respiration Rate 16 16 16 O2 Delivery Device Adult Vent Adult Vent Adult Vent Vent Mode AC AC AC Tidal Volume 400.0 400.0 400.0 POC PEEP 5 5 5 Crit Call To/Read Back Yes Yes Yes Blood Gas Notified Whom kristyn Read Blood Gas Notified Time 22:05:04 03:26:15 05:53:21 Radiography Diagnostic Testing: Radiology Impression Brain CT 11/02/23 20:52 IMPRESSION: No acute intracranial abnormality. Minimal chronic parenchymal changes for age. 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 Mentioned in 2009. Prominent intracranial and scalp arterial calcifications. Electronically Signed: Dorothea Jane MD at 23:03 EST Reading Location ID and State: [facility] / [place] Tel , Service support , Chest X-Ray 11/02/23 22:35 IMPRESSION: Mildly low endotracheal tube, consider retracting it 1-1.5 cm. Adequately positioned enteric tube. Electronically Signed: Dorothea Jane MD at 23:34 EST , Abdomen/Pelvis CT 11/02/23 23:07 IMPRESSION: 1. 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 2. Multifocal thick-walled appearance of small bowel, especially proximal and mid small bowel. And almost diffuse at least mildly thick-walled appearance of the colon. 3. Findings may be due to inflammation and/or some component of superimposed ischemia involving small bowel and colon. 4. No ty pneumatosis. Slight mesenteric haziness and prominent vessels medial to some mildly thick-walled small bowel loops in the left upper quadrant. 5. Correlate with evidence of colitis. 6. Mild focal right decreased upper body height at L1 without visible acute fracture line. 7. Cholecystectomy. 8. Advanced coronary artery calcifications and/or stents. Electronically Signed: Dorothea Jane MD at 1:48 EST , ADDENDUM: 11/03/23 0242 IMPRESSION: 1. 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 2. Multifocal thick-walled appearance of small bowel, especially proximal and mid small bowel. And almost diffuse at least mildly thick-walled appearance of the colon. 3. Findings may be due to inflammation and/or some component of superimposed ischemia involving small bowel and colon. 4. No ty pneumatosis. Slight mesenteric haziness and prominent vessels medial to some mildly thick-walled small bowel loops in the left upper quadrant. 5. Correlate with evidence of colitis. 6. Mild focal right decreased upper body height at L1 without visible acute fracture line. 7. Cholecystectomy. 8. Advanced coronary artery calcifications and/or stents. N.B. : The above Results were Read Back by Dorothea Jane MD to OSCAR PALMA MD, and understanding confirmed on 11/03/2023 02:35:26 (ET). Electronically Signed: Dorothea Jane MD at 1:48 EST , Physical Exam Narrative General: Intubated and sedated HEENT: Atraumatic, normocephalic Eyes: Eyes closed, no spontaneous opening Neck: Supple Respiratory: Mechanically ventilated Cardiovascular: Regular rate GI:nondistended Musculoskeletal: not moving extremities spontaneously Neuro: Patient not meaningfully reacting Skin: No rashes appreciated Psych: Unable to cooperate Assessment & Plan Assessment/Plan (1) Sepsis with encephalopathy and septic shock: QUALIFIERS: Sepsis type: sepsis due to unspecified organism Qualified Code(s): A41.9 - Sepsis, unspecified organism; R65.21 - Severe sepsis with septic shock; G93.41 - Metabolic encephalopathy (2) Respiratory failure: QUALIFIERS: Chronicity: acute Respiratory failure complication: hypoxia Qualified Code(s): J96.01 - Acute respiratory failure with hypoxia (3) Acute kidney failure: QUALIFIERS: Acute renal failure type: with acute tubular necrosis Qualified Code(s): N17.0 - Acute kidney failure with tubular necrosis (4) Lactic acidosis: (5) Elevated troponin: (6) Dehydration: PLAN: Plan #Seizure -Patient with seizure activity this morning, neurology consulted, presently having EEG, seizure precautions -As needed Ativan #Sepsis with septic shock and septic encephalopathy evidenced by core temperature of 90.8 ?F with hypotension of 83/25 mmHg present on admission, leukocytosis of 11.4, lactic acidosis of 4.2 mmol/L present on admission and altered mental status with agonal respirations requiring intubation and mechanical ventilation with CT evidence of suspected colitis with ?SMA stenosis - Admit to ICU for treatment under the sepsis protocol. Proceed with full fluid bolus and serialize lactates to document response to treatment. Continue broad-spectrum antibiotics with IV vancomycin and IV Zosyn and await culture and sensitivity data to potentially narrow antibiotic spectrum. Give Tylenol as needed pain or fever. PICC line has been ordered in the a.m. Finally, we will consult the shrink pit supervisor on-call and the vascular surgeon on-call to see this patient on rounds in the a.m. for further recommendations with help appreciated in advance. -11/03: On Zosyn and vancomycin, Lactate improved with fluids and antibiotics, follow cultures, shrink pit supervisor consulted, vascular surgery #Aspiration pneumonia with severe respiratory and metabolic acidosis with pH of 7.18 present on admission along with urinalysis positive for acute cystitis; without hematuria causing #1 -11/03: Remains intubated in the ICU. #Severe acute kidney injury with evidence of hyaline casts consistent with suspected severe acute tubular necrosis due to adverse drug reaction to coadministration of hydrochlorothiazide, Lasix and enalapril in the setting of CKD; stage III compounding #1 & #2 - Vigorously volume resuscitate and recheck BMP in the a.m. to ensure improvement. Hold all potentially nephrotoxic agents including diuretics and ROSALINA inhibitors. Finally, we will consult the manager labor delivery on-call see this patient on rounds in the a.m. for further recommendations regarding potential hemodialysis with help appreciated in advance. -11/03: Presented with kidney failure, nephrology consulted, I's and O's, repeat BMP with slight improvement albeit minimal #Elevated initial troponin of 249 pg/mL suspected to be due to to acute kidney injury +/- possible non-STEMI type II in the setting of known coronary artery disease with previous WA - Continue aspirin plus Plavix and serialize troponin. Patient was already on Eliquis at time of admission with difficulty experience placing right IJ subsequent hematoma so we will start IV heparin without bolus at this time. Check echocardiogram to evaluate left ventricular ejection fraction. As per my conversation with [facility] will make the final decision on possible cardiology consultation of they deem it necessary with her second troponin the same as the first at 266 pg/mL. -11/03: Continue heparin, troponin flat, depending on echo in progress will consider cardiology #Hypoalbuminemia of 2.5 g/dL present on admission suspicious for protein-calorie malnutrition - Check prealbumin to confirm suspicion. -11/03: Prealbumin 14.3 #Essential hypertension; on HCTZ, Lasix and enalapril - Hold all scheduled antihypertensives and avoid potentially nephrotoxic agents. -11/03: Continue holding his #Hyperlipidemia - Resume statin and check lipid profile this admission in light of #4. #Overweight; with BMI of 29.6 this admission - Weight loss will eventually be recommended if patient is able to make a meaningful recovery. Check TSH. #Diabetes mellitus type 2; of unknown control on metformin - Hold metformin with lactic acidosis of 4.2 mmol/L present on admission. Fingerstick blood sugar every 6 hours with minimal sliding scale insulin. #Diabetic neuropathy - Stable. Continue supportive care. #History of CVA - Noted. #Chronic dementia - Noted. # Paroxysmal atrial fibrillation; on apixaban - Patient currently in normal sinus rhythm. Hold apixaban and give IV heparin without bolus in light of #4. #History of GI bleed; with previous duodenal ulcer - Noted. Start IV Protonix. #Chronic anemia - Stable. Check daily CBC to ensure continued stability. #Osteoarthritis; with chronic debility causing inability to walk and to independently perform her ADLs - Noted. She will likely require ECF placement if she is able to survive this admission. #DVT prophylaxis - Patient on IV heparin for #4. Plus also place SCDs. Time spent in the patient's overall evaluation,decision-making process, review of diagnostic data, adjustment of management, discussion with other providers, nursing nursing and ancillary staff involved in patient's care documentation, 36 minutes Capacity Legal [employer] Operator Reflex Medical hold order details:: IF a medical hold is selected below, a suggested order for a MEDICAL HOLD will reflex upon signing the document. Next of kin: [place] law dictates a PRIORITY LIST for identifying legal decision-maker/legal next of kin in the following order (LNOK): 1st: The patient?s legal guardian, if any 2nd: The patient's spouse (if status is questionable, consult Risk Management) 3rd: The patient?s adult child(jasvir) (majority, if multiple children) 4th: The patient?s parents 5th: The patient?s adult siblings (majority, if multiple children siblings) Charges/Coding Visit Charges Inpatient E&M: 68891 Subs Hosp L2
--- NOTE | 2023-11-03 07:13 | CON.PCM.CC_ITS ---
Assessment & Plan Assessment/Plan (1) Sepsis with encephalopathy and septic shock: QUALIFIERS: Sepsis type: sepsis due to unspecified organism Qualified Code(s): A41.9 - Sepsis, unspecified organism; R65.21 - Severe sepsis with septic shock; G93.41 - Metabolic encephalopathy (2) Respiratory failure: QUALIFIERS: Chronicity: acute Respiratory failure complication: hypoxia Qualified Code(s): J96.01 - Acute respiratory failure with hypoxia PLAN: Plan RECOMMENDATIONS: 1. Continue assist-control mode mechanical ventilation. Wean FiO2 for saturations greater than 90%. 2. Continue empiric antibiotics to cover for potential aspiration. 3. Initiate seizure precautions and as needed Ativan. 4. Load with Keppra. 4. Neurology consultation and EEG. 5. Discontinue all sedating medications. 6. Continue appropriate GI prophylaxis. 7. Initiate vasopressor support, if needed, to maintain hemodynamic stability. 8. Echocardiogram is pending. IMPRESSIONS: 1. Acute hypoxemic respiratory failure The patient was initially intubated in the emergency department due to a failure to protect airway. There were also concerns for an acute aspiration event. The patient is currently stable on assist-control mode mechanical ventilation. FiO2 and PEEP will be weaned to maintain saturations at or above 90%. Plan to continue empiric antibiotics, pending infectious workup. 2. Septic shock The patient presented with sepsis due to suspected aspiration pneumonia versus UTI with acute sepsis related organ dysfunction as evidenced by lactic acidemia and fluid refractory hypotension, requiring vasopressor support. The patient remains on appropriate broad-spectrum antimicrobials, pending infectious workup. If the patient remains persistently hypotensive, will initiate Levophed to maintain a mean arterial pressure at or above 65 mmHg. 3. Encephalopathy with new onset seizure activity There is an unclear amount of downtime that occurred at home. The patient's current clinical state is certainly concerning for anoxic brain injury. She also developed new onset seizure activity this morning. Neurology consultation has been obtained. The patient will be loaded with Keppra. Seizure precautions will be employed as well as as needed Ativan. EEG is currently pending. If the patient remains stable, will attempt to obtain MRI brain. 4. Acute kidney injury/anion gap metabolic acidosis Most likely prerenal in etiology with a component of ischemic ATN. The patient has received supplemental IV fluids. If her hemodynamic status requires, vasopressor support will be initiated. The patient is notably uremic. Nephrology consultation is pending. Continue sodium bicarb and infusion for now. 5. Anemia Continue to monitor blood counts for now. Recommend holding home Plavix. Transfuse if hemoglobin drops below 7 g/dL. Continue PPI therapy as ordered. 6. Troponin elevation Most likely secondary to demand ischemia. Echocardiogram is pending. Continue current supportive care. 7. History of diabetes mellitus/prior CVA/dementia/paroxysmal atrial fibrillati on/hypertension/hyperlipidemia Complicates care, management, recovery and prognosis. Continue to hold home antihypertensives. Continue sliding scale insulin as needed. TIME: 40 minutes of critical care time, independent of procedures, was spent addressing the patient's acute hypoxemic respiratory failure, encephalopathy with new onset seizure activity, acute kidney injury, anemia, review of all data and collaboration with the care team. HPI Consult Data Date of Consult: 11/03/23 HPI Narrative Reason for Consultation: Encephalopathy HPI Narrative: The patient is a 78-year-old female, with a history as outlined below, who presented to the emergency department via EMS on November 02 with altered mental status. History pertinent to her hospitalization was obtained primarily via chart review, the patient is currently intubated and unresponsive. There are no family members available to bedside. According to documentation, upon EMS arrival, the patient was noted to be unresponsive with agonal respirations. There is documented concern for a potential aspiration event with emesis noted at the scene. On presentation to the emergency department, the patient was documented to have a temperature of 96.3 ?F. She was hypotensive with a blood pressure of 83/25 mmHg. Initial laboratory evaluation revealed a white blood cell count of 11,000. Hemoglobin was low at 9.5 g/dL. Initial ABG demonstrated a pH of 7.18 with a pCO2 of 20 and pO2 of 235. Chemistry profile was notable for a bicarbonate of 9, anion gap of 22, BUN of 153 and creatinine of 7.81. Glucose was normal at 190. Lactate was elevated at 4.2. Total CK was mildly increased at 388 with a troponin of 249. CT head revealed no acute intracranial abnormality. In the emergency department, the patient was noted to not be protecting her airway. Therefore, she was emergently intubated. At the present time, the patient is stable on assist-control mode mechanical ventilation with an FiO2 requirement of 30% and PEEP of 5. The patient is currently off of all forms of sedation. Despite this, she is not currently responsive. She does currently have a gag and cough with deep suctioning. However, when placed on spontaneous mode of mechanical ventilation, she does not initiate any spontaneous breaths on her own. At approximately 0720 this morning, I was notified by nursing staff that the patient developed new onset seizure activity. She was immediately administered 2 mg of IV Ativan. Stat neurology consult and EEG will be obtained. I did speak this morning with patient's son, Song, regarding the patient's current clinical state and overall prognosis. [facility] Medical History Afib Anemia Atherosclerotic heart disease of [place] coronary artery without angina pectoris CKD (chronic kidney disease), stage III CVA (cerebral vascular accident) Dementia Essential hypertension GERD (gastroesophageal reflux disease) History of GI bleed Inability to walk Nonrheumatic aortic (valve) insufficiency Old myocardial infarction PAF (paroxysmal atrial fibrillation) Polyneuropathy Type 2 diabetes mellitus Home Medications atorvastatin 40 mg tablet 40 mg PO QDAY 12/01/17 [History Last Taken Unknown] donepezil 5 mg tablet 5 mg PO QHS 12/01/17 [History Last Taken Unknown] clopidogrel 75 mg tablet 75 mg PO QDAY 01/14/18 [History Last Taken Unknown] apixaban 5 mg tablet (Eliquis) 2.5 mg (1/2 x 5 mg) PO BID 30 days #30 tabs 05/10/23 [Rx Last Taken Unknown] acetaminophen 325 mg tablet 650 mg (2 x 325 mg) PO Q4H PRN PRN Fever, pain 1-10 #0 tabs 05/18/23 [Rx Last Taken Unknown] pantoprazole 40 mg tablet,delayed release (Protonix) 40 mg PO BID #60 tabs 05/18/23 [Rx Last Taken Unknown] enalapril maleate 10 mg tablet 10 mg PO Q12H 06/24/23 [History Last Taken Unknown] furosemide 20 mg tablet 20 mg PO DAILY 06/24/23 [History Last Taken Unknown] hydrochlorothiazide 25 mg tablet 25 mg PO DAILY 06/24/23 [History Last Taken Unknown] metformin 500 mg tablet,extended release 24 hr 500 mg PO DAILY 90 days #90 tabs 06/26/23 [Rx Last Taken Unknown] Allergy/AdvReac Type Severity Reaction Status Date / Time No Known Allergies Allergy Verified 11/02/23 20:27 Family History Mother Diabetes Son Heart disease Myocardial infarction Daughter Diabetes Daughter Diabetes Surgical History History of breast biopsy History of cardiac catheterization History of cholecystectomy History of colonoscopy (~2010) History of esophagogastroduodenoscopy (EGD) (~2001) Social History household members: children housing: house Smoking Status: Never smoker alcohol intake: never substance use type: does not use caffeine: Yes Type: coffee Number of servings: 4 what type of physical activity do you participate in: none seatbelt use: always do you feel safe at home: Yes ROS Review of Systems ROS Unobtainable: due to endotracheal tube and due to mental status Physical Exam Const Constitutional Narrative: Intubated and mechanically ventilated. No ventilator dyssynchrony. HEENT HEENT Narrative: Pupils are minimally responsive. Mouth: endotracheal tube in place and OG tube in place Eyes conjunctivae normal Neck supple General: trachea midline Chest inspection of chest normal Resp normal respiratory effort Auscultation: Negative for rales, rhonchi or wheezes Cardio S1 normal heart sound and S2 normal heart sound Rhythm: abnormal rhythm GI normal to inspection, nondistended, normoactive bowel sounds Extremity no clubbing, cyanosis or edema Skin no rashes or lesions noted Neuro Neuro Narrative: Currently nonresponsive to verbal and noxious stimulation. Gag is still intact. No spontaneous breaths are initiated when placed on CPAP. Lab / Micro Data 11/03/23 08:36 11/03/23 08:15 Labs: Laboratory Results - last 24 hr 11/02/23 20:15: WBC 11.4 H, RBC 3.35 L, Hgb 9.5 L, Hct 31.3 L, MCV 93.4, MCH 28.4, MCHC 30.4 L, RDW Std Deviation 69.3 H, RDW Coeff of Deep 20.4 H, Plt Count 319, MPV 11.8, Immature Gran % (Auto) 1.100 H, Neut % (Auto) 89.9 H, Lymph % (Auto) 5.9 L, [place] % (Auto) 2.8, Eos % (Auto) 0.0, Baso % (Auto) 0.3, Absolute Neuts (auto) 10.3 H, Absolute Lymphs (auto) 0.68 L, Nucleated RBC % 0, Platelet Estimate ADEQUATE, RBC Morphology N CHROM, Hypochromasia 1+, Anisocytosis 1+, Macrocytosis 1+, Gardner Cells 1+, Acanthocytes (Spur) 1+, PT 18.7 H, INR 1.6, APTT 35.8, Sodium Cancelled, Potassium Cancelled, Chloride Cancelled, Carbon Dioxide Cancelled, Anion Gap Cancelled, BUN Cancelled, Creatinine Cancelled, Estim Creat Clear Calc Cancelled, Est GFR (MDRD) Af Amer Cancelled, Est GFR (MDRD) Non-Af Cancelled, BUN/Creatinine Ratio Cancelled, Glucose Cancelled, Calcium Cancelled, Total Bilirubin Cancelled, AST Cancelled, ALT Cancelled, Alkaline Phosphatase Cancelled, Troponin I High Sens Cancelled, Total Protein Cancelled, Albumin Cancelled, Globulin Cancelled, Albumin/Globulin Ratio Cancelled 11/02/23 21:00: Urine Color Yellow, Urine Clarity Cloudy, Urine pH 5.0, Ur Specific [place] 1.020, Urine Protein 30 H, Urine Glucose (UA) 50 H, Urine Ketones 5 H, Urine Occult Blood 10 H, Urine Nitrite Negative, Urine Bilirubin Negative, Urine Urobilinogen Normal, Ur Leukocyte Esterase 500 H, Urine RBC 0 SEEN, Urine WBC 25-50 SEEN, Ur Squamous Epith Cells 10-25 SEEN, Urine Bacteria 0 SEEN, Hyaline Casts 25-50 SEEN, Urine Mucus 0 SEEN 11/02/23 21:10: Lactic Acid Cancelled 11/02/23 22:15: Sodium 137, Potassium 4.6, Chloride 106, Carbon Dioxide 9.0 L*, Anion Gap 22 H, BUN 153 H*, Creatinine 7.81 H*, Estim Creat Clear Calc 5.13, Est GFR (MDRD) Af Amer 6 L, Est GFR (MDRD) Non-Af 5 L, BUN/Creatinine Ratio 19.6, Glucose 190 H, Lactic Acid 4.2 H*, Calcium 7.6 L, Total Bilirubin 0.40, AST 38 H , ALT 19, Alkaline Phosphatase 87, Troponin I High Sens 249 H*, Total Protein 6.4, Albumin 2.5 L, Globulin 3.9, Albumin/Globulin Ratio 0.6 L 11/02/23 22:33: Total Creatine Kinase 388 H 11/03/23 02:55: Lactic Acid 2.0, Troponin I High Sens 266 H* 11/03/23 04:20: Troponin I High Sens 266 H*, Prealbumin 14.3 L Micro: Microbiology 11/02/23 21:00 Urine Catheter - Maguire Legionella Antigen - Final 11/02/23 21:00 Urine Catheter - Maguire Streptococcus pneumoniae Antigen (M - Final 11/02/23 21:00 Mucosa - Nasopharyngeal SARS-CoV-2, Influenza & RSV (PCR) - Final ABG Data ABG results: ABG 11/02/23 11/03/23 11/03/23 22:03 03:24 05:49 Specimen Type ART ART ART Sample Site L Fem R Brach L Brach pH 7.18 L* 7.19 L* 7.30 L Bicarbonate Actual 7.3 L 7.8 L 8.8 L Total CO2 8 8 9 Base Excess -21 L -21 L -18 L O2 Saturation 100 H 100 H 100 H O2 % 40.0 40.0 40.0 ABG pCO2 19.4 L 20.4 L 17.9 L* ABG pO2 235 H 211 H 212 H Romel Test N/A Respiration Rate 16 16 16 O2 Delivery Device Adult Vent Adult Vent Adult Vent Vent Mode AC AC AC Tidal Volume 400.0 400.0 400.0 POC PEEP 5 5 5 Crit Call To/Read Back Yes Yes Yes Blood Gas Notified Whom kristyn Medrano Blood Gas Notified Time 22:05:04 03:26:15 05:53:21 Imagaing Radiology Impression Brain CT 11/02/23 20:52 IMPRESSION: No acute intracranial abnormality. Minimal chronic parenchymal changes for age. 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 Mentioned in 2009. Prominent intracranial and scalp arterial calcifications. Electronically Signed: Dorothea Jane MD at 23:03 EST , Chest X-Ray 11/02/23 22:35 IMPRESSION: Mildly low endotracheal tube, consider retracting it 1-1.5 cm. Adequately positioned enteric tube. Electronically Signed: Dorothea Jane MD at 23:34 EST , Abdomen/Pelvis CT 11/02/23 23:07 IMPRESSION: 1. 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 2. Multifocal thick-walled appearance of small bowel, especially proximal and mid small bowel. And almost diffuse at least mildly thick-walled appearance of the colon. 3. Findings may be due to inflammation and/or some component of superimposed ischemia involving small bowel and colon. 4. No ty pneumatosis. Slight mesenteric haziness and prominent vessels medial to some mildly thick-walled small bowel loops in the left upper quadrant. 5. Correlate with evidence of colitis. 6. Mild focal right decreased upper body height at L1 without visible acute fracture line. 7. Cholecystectomy. 8. Advanced coronary artery calcifications and/or stents. Electronically Signed: Dorothea Jane MD at 1:48 EST , ADDENDUM: 11/03/23 0242 IMPRESSION: 1. 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 2. Multifocal thick-walled appearance of small bowel, especially proximal and mid small bowel. And almost diffuse at least mildly thick-walled appearance of the colon. 3. Findings may be due to inflammation and/or some component of superimposed ischemia involving small bowel and colon. 4. No ty pneumatosis. Slight mesenteric haziness and prominent vessels medial to some mildly thick-walled small bowel loops in the left upper quadrant. 5. Correlate with evidence of colitis. 6. Mild focal right decreased upper body height at L1 without visible acute fracture line. 7. Cholecystectomy. 8. Advanced coronary artery calcifications and/or stents. N.B. : The above Results were Read Back by Dorothea Jane MD to OSCAR PALMA MD, and understanding confirmed on 11/03/2023 02:35:26 (ET). Electronically Signed: Dorothea Jane MD at 1:48 EST , [employer] Legal [employer] Associate Reflex Medical hold order details:: IF a medical hold is selected below, a suggested order for a MEDICAL HOLD will reflex upon signing the document. Next of kin: [place] law dictates a PRIORITY LIST for identifying legal decision-maker/legal next of kin in the following order (LNOK): 1st: The patient?s legal guardian, if any 2nd: The patient's spouse (if status is questionable, consult Risk Management) 3rd: The patient?s adult child(jasvir) (majority, if multiple children) 4th: The patient?s parents 5th: The patient?s adult siblings (majority, if multiple children siblings) Charges/Coding Procedures Hospitalists Procedures: [id number] Critical Care 1st Hr
--- NOTE | 2023-11-03 07:19 | ECHOD_ITS ---
Reason For Study: DYSPNEA Procedure This was a 2D Doppler, Color Flow transthoracic echocardiogram. Patient was scanned in supine position during reflux assessment. Patient was on a ventillator. Exam performed portable in ICU/CCU. Left Ventricle Normal LV size. Mild concentric left ventricular hypertrophy. The estimated ejection fraction is 65- 70 %. Unable to assess diastolic dysfunction due to arrhythmia. No regional wall motion abnormalities noted. Right Ventricle Normal RV size. Normal systolic function. Atria Normal left atrium. Normal right atrium. Mitral Valve Severe mitral annular calcification. The mitral valve chordae are thickened and/or calcified. There is no mitral valve stenosis. Trivial mitral valve insufficiency. Tricuspid Valve Normal tricuspid valve. Mild (1+) tricuspid valve insufficiency. Right ventricular systolic pressure estimated to be 45 mmHg. Aortic Valve Moderate focal aortic valve calcification. Trisinus/trileaflet aortic valve. Mild aortic stenosis. Peak aortic valve gradient 35 mmHg. Mean aortic valve gradient 20 mmHg. Mild (1+) aortic valve insufficiency. Pulmonic Valve Normal pulmonic valve. Trivial pulmonic valve insufficiency. Great Vessels Normal aortic root. Pericardium/Pleural No pericardial effusion. MMode/2D Measurements & Calculations LVIDd: 3.0 cm IVSd: 1.2 cm LVOT diam: 1.9 cm LVIDs: 1.1 cm LVPWd: 1.2 cm LVOT area: 2.9 cm2 RVDd: 3.0 cm FS: 63.3 % Ao root diam: 3.1 cm LAV(MOD-bp): 37.3 ml LVAd ap4: 17.2 cm2 LAV(MOD-bp) Indexed: 22.3 ml/m2 LVLd ap4: 5.9 cm LAV(MOD-sp2): 45.9 ml EDV(MOD-sp4): 40.7 ml LAV(MOD-sp4): 29.6 ml EDV(sp4-el): 42.6 ml LVAs ap4: 6.9 cm2 LVLs ap4: 4.5 cm ESV(MOD-sp4): 9.2 ml ESV(sp4-el): 9.0 ml EF(MOD-sp4): 77.3 % EF(sp4-el): 78.8 % LVAd ap2: 15.6 cm2 SV(MOD-sp4): 31.4 ml SV(MOD-sp2): 22.8 ml LVLd ap2: 6.2 cm EDV(MOD-sp2): 31.8 ml EDV(sp2-el): 33.3 ml LVAs ap2: 7.2 cm2 LVLs ap2: 4.8 cm ESV(MOD-sp2): 9.0 ml ESV(sp2-el): 9.2 ml EF(MOD-sp2): 71.6 % SV(sp4-el): 33.6 ml LA dimension(2D): 4.0 cm LA A4 area: 14.4 cm2 RA A4 area: 11.7 cm2 TAPSE: 1.3 cm Time Measurements MV dec time: 0.19 sec Doppler Measurements & Calculations MV E max doug: 130.4 cm/sec Lat Peak E' Doug: 8.2 cm/sec Med Peak E' Doug: 5.2 cm/sec E/E' lat: 15.8 E/E' med: 25.3 MV V2 max: 156.5 cm/sec Ao V2 max: 293.2 cm/sec AI max doug: 402.9 cm/sec MV max P.8 mmHg Ao max P.5 mmHg AI max P.9 mmHg MV V2 mean: 96.3 cm/sec Ao V2 mean: 210.3 cm/sec MV mean P.2 mmHg Ao mean P.0 mmHg AI dec slope: 225.9 cm/sec2 MV V2 VTI: 29.1 cm Ao V2 VTI: 38.3 cm AI P1/2t: 522.5 msec AV (velocity ratio): 0.55 MVA(VTI): 2.1 cm2 JOSE(I,D): 1.6 cm2 JOSE(V,D): 1.2 cm2 LV V1 max: 126.2 cm/sec SV(LVOT): 60.5 ml PA V2 max: 131.6 cm/sec LV V1 max P.4 mmHg PA max PG (full): 1.3 mmHg LV V1 mean P.9 mmHg LV V1 mean: 93.2 cm/sec LV V1 VTI: 21.0 cm TR max doug: 324.9 cm/sec TR max P.2 mmHg ECHO/Echo Complete Interpretation Summary The estimated ejection fraction is 65-70 %. Mild concentric left ventricular hypertrophy. Severe mitral annular calcification. The mitral valve chordae are thickened and/or calcified. Mild aortic stenosis. Mild (1+) aortic valve insufficiency. Ordering Physician: Renee Nicole Referring Physician: Namita Hassan M.D. Performed By: Emy Carlson RDCS
[2023-11-03] MEDS: LORazepam 2 MG/ML Syringe IV ×2 (07:24→07:36)
[2023-11-03] MEDS: levETIRAcetam IV 500 MG in 0.9% Normal Saline (100mL Bag) 100 ML 400 MG IV ×2 (08:21→21:24)
[2023-11-03 08:30] LABS: Absolute Lymphocyte Count 0.64 X10^3/uL (0.83-4.51); Absolute Neutrophil Count 13.7 X10^3/uL (2.0-7.7); Basophil# 0.03 X10^3/uL; Basophil% 0.2 % (0-1); Eosinophil# 0.02 X10^3/uL; Eosinophils% 0.1 % (0-5); Hematocrit 24.8 % (37-47); Hemoglobin 7.8 g/dL (12.0-15.0); Lymphocyte # 0.64 X10^3/ul (0.83-4.51); Lymphocyte % 4.3 % (19-41); Mean Corp Hgb Conc 31.5 g/dL (32-36); Mean Corpuscular Hgb 28.7 pg (27.0-32.0); Mean Corpuscular Volume 91.2 fL (81-99); Mean Platelet Vol. 11.6 fl (6.2-12.0); NRBC Flagged by Analyzer 0 % (0-5); Neutrophil # 13.66 X10^3/uL (2.7-7.7); Neutrophil % 90.9 % (47-70); POSITIVE MORPHOLOGY YES; Platelet Count 258 K/mm3 (150-450); RBC Distribution Width CV 20.5 % (11.6-14.6); RBC Distribution Width SD 68.3 fl (35.1-43.9); Red Blood Count 2.72 M/mm3 (4.2-5.4)
[2023-11-03] MEDS: Norepinephrine 8 MG in 0.9% Normal Saline (250mL Bag) 242 ML 9.40000000000000036 MG CONT INF (08:33)
[2023-11-03 08:38] LABS: Differential Indicated SCAN CRITERIA MET
[2023-11-03 08:52] LABS: Partial Thromboplast Time > 200.0 Seconds (24.1-36.2)
[2023-11-03 09:05] LABS: ALB/GLOB Ratio 0.7 RATIO (0.9-2.4); AST(SGOT) 44 U/L (15-37); Alanine Aminotransfer ALT/SGPT 20 U/L (13-56); Albumin, Serum 2.4 g/dL (3.2-5.0); Alkaline Phosphatase 79 U/L (45-117); Anion Gap 21 (5-15); BUN 136 mg/dL (7-18); BUN/Creat Ratio 19.2 RATIO (10-20); Calcium,Total 7.5 mg/dL (8.5-10.1); Chloride 108 mmol/L (98-107); Creatinine, Serum 7.08 mg/dL (0.55-1.02); EST Glomerular Filtration Rate 6 mL/min (>60); Est Glom Filt Rate - Afr Amer 7 mL/min (>60); Estimated Creatinine Clearance 5.71 ml/min; Globulin 3.6 g/dL (2.2-4.2); Glucose 253 mg/dL (74-106); Potassium 3.9 mmol/L (3.5-5.1); Sodium Level 139 mmol/L (136-145)
--- NOTE | 2023-11-03 09:12 | CASEMGMT ---
RN inquired who would be the decision maker for patient. After reviewing patient's chart SOFIE located Healthcare Power of Senior Software Engineer Analytics papers listing patient's daughter Pushpa as patient's Healthcare Power of Senior Software Engineer [employer]. SOFIE notified RN and placed a copy of document in patient's paper chart. Monalisa PICKENS
--- NOTE | 2023-11-03 09:29 | CASEMGMT ---
Addendum entered by Monalisa Scott 11/03/23 11:12: SW called patient's admitted attorneys's office ([employer] in [place]) and they do not have any updated Healthcare Power of Orthophotography Technician (HCPOA) papers. Patient did not list any alternates on her HCPOA. Therefore, decision making would need to be the consensus of the 3 children. (Julio, Song, and Pushpa). SW called Pushpa and explained this to her. SW asked if she would be in agreement with making medical decisions with her brothers. Pushpa said she does not want anything to do with the decision making. Pushpa wants to defer all decision making to her brother Song. Pushpa said that is what patient wanted also. SW spoke with Song and explained the situation with HCPOA. Song is aware Pushpa does not want any part of making decisions for patient and would like Song to make decisions. Song was in agreement with making decisions and he said that is what patient wanted. Patient's son Julio has cognitive delays and would not be able to make medical decisions, per Song. SW is also aware of Julio's cognitive delays due to patient sharing this with SW on previous admissions. Song is willing to make medical decisions for patient. Plan: Patient's daughter Pushpa is listed as patient's HCPOA. However when nursing and SW spoke with Pushpa. Pushpa is not willing or able to uphold her responsibility as HCPOA for patient and would prefer to defer decision making to her brother Song. Therefore, Song is the medical decision maker for patient. Monalisa PICKENS Original Note: The phone number listed for patient's daughter Pushpa was incorrect. RN was able to get a correct phone number from patient's son Song who is present at [facility]. RN was talking to Pushpa who said she is not the Healthcare POA it is Song. SOFIE told RN to get verbal confirmation from Pushpa that she does not want to make medical decisions for patient and defers to Song CARRIZALES then also asked that she get another RN or staff member to also talk with Pushpa and have Pushpa relay this same information. SOFIE will continue to follow. Monalisa PICKENS
[2023-11-03 09:51] LABS: Burr Cells 2+; Schistocytes 1+
[2023-11-03 09:52] LABS: Anisocytosis 2+
--- NOTE | 2023-11-03 10:06 | NURSING ---
Pushpa Huston, daughter and documented POA requests Song Galdamez, son, to be the patients decision maker and refers all decisions to him. Verified by this RN and Oumou Fraga RN.
[2023-11-03] MEDS: levETIRAcetam IV 1,000 MG/100 ML BAG 400 MG IV (10:53)
[2023-11-03] MEDS: Chlorhexidine 15 ML PO ×2 (10:55→21:24)
[2023-11-03] MEDS: Piperacil/Tazobactam 3.375 GM in 0.9% Normal Saline (50mL MB+) 50 ML IV ×2 (11:39→21:31)
--- NOTE | 2023-11-03 11:40 | CON.PCM.RE_ITS ---
Assessment & Plan Assessment/Plan (1) Acute kidney failure: QUALIFIERS: Acute renal failure type: with acute tubular necrosis Qualified Code(s): N17.0 - Acute kidney failure with tubular necrosis (2) Sepsis with encephalopathy and septic shock: QUALIFIERS: Sepsis type: sepsis due to unspecified organism Qualified Code(s): A41.9 - Sepsis, unspecified organism; R65.21 - Severe sepsis with septic shock; G93.41 - Metabolic encephalopathy (3) Respiratory failure: QUALIFIERS: Chronicity: acute Respiratory failure complication: hypoxia Qualified Code(s): J96.01 - Acute respiratory failure with hypoxia PLAN: Plan This is a 78-year-old female with past medical history significant for HTN, hyperlipidemia, diabetes mellitus type 2, history of CVA, A-fib on apixaban, coronary artery disease, history of GI bleed with previous duodenal ulcer, chronic anemia who was brought to the emergency room yesterday via EMS for evaluation of altered mental status with agonal respirations at home. Patient required intubation. Patient was hypotensive in the emergency room. Patient was admitted to ICU for aspiration pneumonia with severe respiratory and metabolic acidosis, pH 7.18, lactic acid 4.2, troponin 249, on admission, also concern for septic shock, septic encephalopathy as initial core temperature was 90.8 ?F. Nephrology consulted for AVELINO. - Reviewing past serum creatinine trends, possible baseline serum creatinine 1 mg/dL as of June 2023, however patient did have lab work on August 03 23 creatinine 1.73. Gap in lab work to this hospitalization. On admission creatinine 7.81 and today her creatinine is 7.08 mg/dL. Patient is on bicarb drip. Potassium is normal at 3.9. Patient has Maguire in place, essentially no urine output this morning. Quite possibly AVELINO prerenal secondary to ischemic ATN from septic shock. Noncontrast CT of abdomen pelvis showed no hydronephrosis, normal renal size and position. Prior to hospital admission patient had been taking hydrochlorothiazide, Lasix and enalapril. These are all on hold. At this time there is no emergent need for renal replacement therapy however if no improvement in hemodynamics and/or renal function patient may need renal placement therapy which likely would be CRRT, however patient may not be able to tolerate CRRT. Recommend to continue holding diuretics and enalapril as well as metformin. Avoid nephrotoxic agents. Blood pressures are low, she is on Levophed at 10 mcg/hr. I had lengthy discussion with patient's son who is at bedside regarding current renal status and possible need for renal placement therapy. Son is undecided if he and/or family would start hemodialysis. Son reports he is going to talk with his sister and rest the family. Currently patient is full code. At this time there is no emergent need to start renal replacement therapy, potassium normal, patient is not overtly hypervolemic, she is on bicarb drip. Will obtain labs for later today and again in am to follow renal trajectory. - Sepsis with septic shock and septic encephalopathy; patient has received IV fluid boluses, she is on broad-spectrum antibiotics vancomycin and Zosyn. 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 Thank you for allowing us to participate in the care of Ms. Galdamez, further orders forthcoming as hospitalization evolves. HPI Consult Data Date of Consult: 11/03/23 HPI Narrative HPI Narrative: VANIA GALDAMEZ, is a 78 F with past medical history significant for HTN, hyperlipidemia, diabetes mellitus type 2, history of CVA, A-fib on apixaban, coronary artery disease, history of GI bleed with previous duodenal ulcer, chronic anemia who was brought to the emergency room yesterday via EMS for evaluation of altered mental status with agonal respirations. Patient required intubation. Patient was hypotensive in the emergency room. Patient was admitted to ICU for aspiration pneumonia with severe respiratory and metabolic acidosis, pH 7.18, lactic acid 4.2, troponin 249, on admission, also concern for septic shock, septic encephalopathy as initial core temperature was 90.8 ?F. Nephrology consulted for AVELINO. Information is gathered from son who is at [facility]. According to patient's son patient had been feeling unwell for some time. Patient lives with her handicapped son. Reviewing past creatinine trends, possible baseline serum creatinine around 1 mg/dL however patient did have lab work on August 03, 2023 creatinine was 1.73 mg/dL. Gap in lab work to this hospitalization, yesterday in the emergency room creatinine 7.81 and today creatinine is 7.08. Bicarb was 9 yesterday, she is on bicarb drip. Potassium normal. [facility] Medical History Afib Anemia Atherosclerotic heart disease of [place] coronary artery without angina pectoris CKD (chronic kidney disease), stage III CVA (cerebral vascular accident) Dementia Essential hypertension GERD (gastroesophageal reflux disease) History of GI bleed Inability to walk Nonrheumatic aortic (valve) insufficiency Old myocardial infarction PAF (paroxysmal atrial fibrillation) Polyneuropathy Type 2 diabetes mellitus Home Medications atorvastatin 40 mg tablet 40 mg PO QDAY 12/01/17 [History Last Taken Unknown] donepezil 5 mg tablet 5 mg PO QHS 12/01/17 [History Last Taken Unknown] clopidogrel 75 mg tablet 75 mg PO QDAY 01/14/18 [History Last Taken Unknown] apixaban 5 mg tablet (Eliquis) 2.5 mg (1/2 x 5 mg) PO BID 30 days #30 tabs 04/18 02/07 [Rx Last Taken Unknown] acetaminophen 325 mg tablet 650 mg (2 x 325 mg) PO Q4H PRN PRN Fever, pain 1- 07/27 #0 tabs 05/18/23 [Rx Last Taken Unknown] pantoprazole 40 mg tablet,delayed release (Protonix) 40 mg PO BID #60 tabs 05/18/23 [Rx Last Taken Unknown] enalapril maleate 10 mg tablet 10 mg PO Q12H 06/24/23 [History Last Taken Unknown] furosemide 20 mg tablet 20 mg PO DAILY 06/24/23 [History Last Taken Unknown] hydrochlorothiazide 25 mg tablet 25 mg PO DAILY 06/24/23 [History Last Taken Un known] metformin 500 mg tablet,extended release 24 hr 500 mg PO DAILY 90 days #90 tabs 06/26/23 [Rx Last Taken Unknown] Allergy/AdvReac Type Severity Reaction Status Date / Time No Known Allergies Allergy Verified 11/02/23 20:27 Family History Mother Diabetes Son Heart disease Myocardial infarction Daughter Diabetes Daughter Diabetes Surgical History History of breast biopsy History of cardiac catheterization History of cholecystectomy History of colonoscopy (~2010) History of esophagogastroduodenoscopy (EGD) (~2001) Social History household members: children housing: house Smoking Status: Never smoker alcohol intake: never substance use type: does not use caffeine: Yes Type: coffee Number of servings: 4 what type of physical activity do you participate in: none seatbelt use: always do you feel safe at home: Yes ROS ROS Narrative unable to obtain Physical Exam Narrative Intubated, on ventilator support S1, S2, RRR lung sounds clear anteriorly, diminished breath sounds posterior bases Abdomen soft, positive bowel sounds No pitting edema to bilateral lower legs or feet Indwelling Maguire with scant yellow urine in tubing Lab / Micro Data 11/03/23 08:36 11/03/23 08:15 Labs: Laboratory Results - last 24 hr 11/02/23 20:15: WBC 11.4 H, RBC 3.35 L, Hgb 9.5 L, Hct 31.3 L, MCV 93.4, MCH 28.4, MCHC 30.4 L, RDW Std Deviation 69.3 H, RDW Coeff of Deep 20.4 H, Plt Count 319, MPV 11.8, Immature Gran % (Auto) 1.100 H, Neut % (Auto) 89.9 H, Lymph % (Auto) 5.9 L, Cotton % (Auto) 2.8, Eos % (Auto) 0.0, Baso % (Auto) 0.3, Absolute Neuts (auto) 10.3 H, Absolute Lymphs (auto) 0.68 L, Nucleated RBC % 0, Platelet Estimate ADEQUATE, RBC Morphology N CHROM, Hypochromasia 1+, Anisocytosis 1+, Macrocytosis 1+, Alpha Cells 1+, Acanthocytes (Spur) 1+, PT 18.7 H, INR 1.6, APTT 35.8, Sodium Cancelled, Potassium Cancelled, Chloride Cancelled, Carbon Dioxide Cancelled, Anion Gap Cancelled, BUN Cancelled, Creatinine Cancelled, Estim Creat Clear Calc Cancelled, Est GFR (MDRD) Af Amer Cancelled, Est GFR (MDRD) Non-Af Cancelled, BUN/Creatinine Ratio Cancelled, Glucose Cancelled, Calcium Cancelled, Total Bilirubin Cancelled, AST Cancelled, ALT Cancelled, Alkaline Phosphatase C ancelled, Troponin I High Sens Cancelled, Total Protein Cancelled, Albumin Cancelled, Globulin Cancelled, Albumin/Globulin Ratio Cancelled 11/02/23 21:00: Urine Color Yellow, Urine Clarity Cloudy, Urine pH 5.0, Ur Specific Muir 1.020, Urine Protein 30 H, Urine Glucose (UA) 50 H, Urine Ketones 5 H, Urine Occult Blood 10 H, Urine Nitrite Negative, Urine Bilirubin Negative, Urine Urobilinogen Normal, Ur Leukocyte Esterase 500 H, Urine RBC 0 SEEN, Urine WBC 25-50 SEEN, Ur Squamous Epith Cells 10-25 SEEN, Urine Bacteria 0 SEEN, Hyaline Casts 25-50 SEEN, Urine Mucus 0 SEEN 11/02/23 21:10: Lactic Acid Cancelled 11/02/23 22:15: Sodium 137, Potassium 4.6, Chloride 106, Carbon Dioxide 9.0 L*, Anion Gap 22 H, BUN 153 H*, Creatinine 7.81 H*, Estim Creat Clear Calc 5.13, Est GFR (MDRD) Af Amer 6 L, Est GFR (MDRD) Non-Af 5 L, BUN/Creatinine Ratio 19.6, Glucose 190 H, Lactic Acid 4.2 H*, Calcium 7.6 L, Total Bilirubin 0.40, AST 38 H , ALT 19, Alkaline Phosphatase 87, Troponin I High Sens 249 H*, Total Protein 6.4, Albumin 2.5 L, Globulin 3.9, Albumin/Globulin Ratio 0.6 L 11/02/23 22:33: Total Creatine Kinase 388 H 11/03/23 02:55: Lactic Acid 2.0, Troponin I High Sens 266 H* 11/03/23 04:20: Troponin I High Sens 266 H*, Prealbumin 14.3 L 11/03/23 08:15: APTT > 200.0 H*, Sodium 139, Potassium 3.9, Chloride 108 H, Carbon Dioxide 10.0 L, Anion Gap 21 H, BUN 136 H*, Creatinine 7.08 H, Estim Creat Clear Calc 5.71, Est GFR (MDRD) Af Amer 7 L, Est GFR (MDRD) Non-Af 6 L, BUN/Creatinine Ratio 19.2, Glucose 253 H, Calcium 7.5 L, Total Bilirubin 0.40, AST 44 H, ALT 20, Alkaline Phosphatase 79, Total Protein 6.0 L, Albumin 2.4 L, Globulin 3.6, Albumin/Globulin Ratio 0.7 L 11/03/23 08:36: WBC 15.0 H, RBC 2.72 L, Hgb 7.8 L, Hct 24.8 L, MCV 91.2, MCH 28.7, MCHC 31.5 L, RDW Std Deviation 68.3 H, RDW Coeff of Deep 20.5 H, Plt Count 258, MPV 11.6, Immature Gran % (Auto) 0.500, Neut % (Auto) 90.9 H, Lymph % (Auto) 4.3 L, Cotton % (Auto) 4.0, Eos % (Auto) 0.1, Baso % (Auto) 0.2, Absolute Neuts (auto) 13.7 H, Absolute Lymphs (auto) 0.64 L, Nucleated RBC % 0, Anisocytosis 2+, Alpha Cells 2+, Schistocytes 1+ Micro: Microbiology 11/03/23 00:00 Sputum, Tracheal Aspirate Gram Stain - Final 11/02/23 21:00 Urine Catheter - Maguire Legionella Antigen - Final 11/02/23 21:00 Urine Catheter - Maguire Streptococcus pneumoniae Antigen (M - Final 11/02/23 21:00 Mucosa - Nasopharyngeal SARS-CoV-2, Influenza & RSV (PCR) - Final ABG Data ABG results: ABG 11/02/23 11/03/23 11/03/23 22:03 03:24 05:49 Specimen Type ART ART ART Sample Site L Fem R Brach L Brach pH 7.18 L* 7.19 L* 7.30 L Bicarbonate Actual 7.3 L 7.8 L 8.8 L Total CO2 8 8 9 Base Excess -21 L -21 L -18 L O2 Saturation 100 H 100 H 100 H O2 % 40.0 40.0 40.0 ABG pCO2 19.4 L 20.4 L 17.9 L* ABG pO2 235 H 211 H 212 H Romel Test N/A Respiration Rate 16 16 16 O2 Delivery Device Adult Vent Adult Vent Adult Vent Vent Mode AC AC AC Tidal Volume 400.0 400.0 400.0 POC PEEP 5 5 5 Crit Call To/Read Back Yes Yes Yes Blood Gas Notified Whom kristyn Medrano Blood Gas Notified Time 22:05:04 03:26:15 05:53:21 Imagaing Radiology Impression Brain CT 11/02/23 20:52 IMPRESSION: No acute intracranial abnormality. Minimal chronic parenchymal changes for age. 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 Mentioned in 2009. Prominent intracranial and scalp arterial calcifications. Electronically Signed: Dorothea Jane MD at 23:03 EST , Chest X-Ray 11/02/23 22:35 IMPRESSION: Mildly low endotracheal tube, consider retracting it 1-1.5 cm. Adequately positioned enteric tube. Electronically Signed: Dorothea Jane MD at 23:34 EST Reading Location ID and State: [email or web address] / [place] Tel , Service support , Abdomen/Pelvis CT 11/02/23 23:07 IMPRESSION: 1. 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 2. Multifocal thick-walled appearance of small bowel, especially proximal and mid small bowel. And almost diffuse at least mildly thick-walled appearance of the colon. 3. Findings may be due to inflammation and/or some component of superimposed ischemia involving small bowel and colon. 4. No ty pneumatosis. Slight mesenteric haziness and prominent vessels medial to some mildly thick-walled small bowel loops in the left upper quadrant. 5. Correlate with evidence of colitis. 6. Mild focal right decreased upper body height at L1 without visible acute fracture line. 7. Cholecystectomy. 8. Advanced coronary artery calcifications and/or stents. Electronically Signed: Dorothea Jane MD at 1:48 EST , ADDENDUM: 11/03/23 0242 IMPRESSION: 1. 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 2. Multifocal thick-walled appearance of small bowel, especially proximal and mid small bowel. And almost diffuse at least mildly thick-walled appearance of the colon. 3. Findings may be due to inflammation and/or some component of superimposed ischemia involving small bowel and colon. 4. No ty pneumatosis. Slight mesenteric haziness and prominent vessels medial to some mildly thick-walled small bowel loops in the left upper quadrant. 5. Correlate with evidence of colitis. 6. Mild focal right decreased upper body height at L1 without visible acute fracture line. 7. Cholecystectomy. 8. Advanced coronary artery calcifications and/or stents. N.B. : The above Results were Read Back by Dorothea Jane MD to OSCAR PALMA MD, and understanding confirmed on 11/03/2023 02:35:26 (ET). Electronically Signed: Dorothea Jane MD at 1:48 EST , Chest X-Ray 11/03/23 04:15 IMPRESSION: 1. No suspicious infiltrates. 2. Adequately positioned endotracheal and enteric tube. 3. Standard PA and lateral views are suggested when clinically feasible to evaluate for subtle nodules versus artifacts. Electronically Signed: Dorothea Jane MD at 8:46 EST , Chest X-Ray 11/03/23 05:45 IMPRESSION: Well-positioned endotracheal and enteric tubes. Otherwise stable chest. Electronically Signed: Dorothea Jane MD at 7:21 EST , Capacity [employer] Reflex Medical hold order details:: IF a medical hold is selected below, a suggested order for a MEDICAL HOLD will reflex upon signing the document. Next of kin: [place] law dictates a PRIORITY LIST for identifying legal decision-maker/legal next of kin in the following order (LNOK): 1st: The patient?s legal guardian, if any 2nd: The patient's spouse (if status is questionable, consult Risk Management) 3rd: The patient?s adult child(jasvir) (majority, if multiple children) 4th: The patient?s parents 5th: The patient?s adult siblings (majority, if multiple children siblings)
[2023-11-03] MEDS: Pantoprazole Sodium 40 MG in 0.9% Normal Saline (100mL MB+) 100 ML 330 MG IV (11:47)
[2023-11-03] MEDS: TITRATION PARAMETER CHANGE 1 EACH IV (11:47)
[2023-11-03] MEDS: Insulin Lispro 100 UNIT/ML INSULN.PEN SC ×3 (12:25→21:31)
[2023-11-03 12:41] LABS: Bedside Glucose 249 mg/dL (74-106)
--- NOTE | 2023-11-03 14:35 | RAD_ITS ---
HISTORY: PICC placement. TECHNIQUE: XR Chest 1 View. COMPARISON: 05:47. FINDINGS: LINES/TUBES: Endotracheal tube tip 3-4 cm above the kevin. Nasogastric tube tip again in the left upper quadrant region of the stomach. Right PICC tip at the level of the superior cavoatrial junction. CARDIOMEDIASTINAL BORDERS: Stable. LUNGS: Improved aeration of the lung bases with decreased atelectasis. PLEURA: No pleural effusion or pneumothorax. RAD/CXR for Line Placement IMPRESSION: Satisfactory appearance of right PICC. Electronically Signed: Doretha Nielsen MD at 14:52 EST ,
--- NOTE | 2023-11-03 15:10 | CASEMGMT ---
Tertiary facilities in network with patient's insurance: [facility], [facility], K[facility] Santiago [facility], [facility] , [facility]
--- NOTE | 2023-11-03 15:42 | CON.PCM.NE_ITS ---
Assessment and Plan: Neuro Assessment/Plan VANIA ANN is a 78 F with a past medical history of HTN, HLD, DM2, being evaluated by Teleneurology for acute altered mentation and seizure activity. Found to be hypothermic but cranial nerve exam improved once rewarmed. No clear lesion on CTH concerning for anoxia. No clear history of seizures. Concern for anoxic brain injury based on exam and history. Plan: - recommend transfer for cEEG evaluation - concern for NCSE especially in setting of anoxia - wait on MRI Brain for 72hrs after discovery as early imaging may not show full extent of anoxia - Keppra 500mg BID starting tonight - recommend CTA head/neck on pt if she can with CRRT - correction of metabolic disturbances, especially uremia, per primary team Transfer to [facility] for the following reasons:cEEG I personally attended this patient and spent a total time of 30 minutes evaluating this patient including clinical assessment, review of chart, medical history imaging, and determining appropriate treatment and workup. HPI Consult Data Date of Consult: 11/03/23 HPI Narrative HPI Narrative: VANIA ANN, is a 78 F with a past medical history of essential hypertension; on HCTZ, Lasix and enalapril, hyperlipidemia, overweight; with BMI of 29.6 this admission, diabetes mellitus type 2; of unknown control on metformin, diabetic neuropathy, history of CVA, chronic dementia, paroxysmal atrial fibrillation; on apixaban, coronary artery disease; status post NV, history of GI bleed; with previous duodenal ulcer, chronic kidney disease; stage III, chronic anemia and osteoarthritis; with chronic debility causing inability to walk and to independently perform her ADLs who presents to [facility] ER after she was noted to have altered mental status. Ms. Reza is not a reliable historian at this time as she was intubated shortly after arrival so information was gathered from the chart, medical staff and computer. According to the medical record EMS was called to her home for mental status change. Upon their arrival the patient was noted to have agonal respirations and was otherwise unresponsive except to sternal rub. Her blood glucose was checked and was noted to be above 100 mg/dL. They stated that her son gave her her pills and then when he checked on her he found her having agonal respirations and not responsive causing him to activate EMS. Apparently she was noted to have vomited with her dentures hanging usp out of her mouth noted during her initial survey. Upon arrival in the ER she was noted to have a blood pressure of 83/25 mmHg with a pH of 7.18 with a pCO2 of 19.4 and a pO2 of 235 on a ventilator and AC mode with a tidal volume of 400 cc with an FiO2 of 40% with 5 of PEEP and a respiratory rate of 16 complicated by laboratory evidence of leukocytosis of 11.4 present on admission with a UA positive for acute cystitis; without hematuria but with evidence of hyaline casts consistent with suspected ATN causing severe acute renal failure in the setting of stage III chronic kidney disease with a serum creatinine of 7.81 mg/dL and a BUN of 153 mg/dL (up from her baseline serum creatinine of 1.73 mg/dL and a BUN of 54 mg/dL in July 2023) suspected to be due to adverse drug reaction to multiple diuretics and ROSALINA inhibitor compounded by lactic acidosis of 4.2 mmol/L present on admission with an elevated initial troponin of 249 pg/mL suspected to be due to severe acute kidney injury +/- possible non-STEMI type II and she was then admitted to the ICU for treatment under the sepsis protocol for a stay that is expected to be greater than 48 hours. Neurologic History: Pwith poor pupillary reflex while hypothermic but this has improved. No evidence of abnormal movements outside the clinical seizure. At home, reportedly is very independently but unclear what her cognitive baseline is. She currently is rewarmed, and severe AVELINO which CRRT is being considered for. FORMERLY [facility], 1928–1983 Medical History Afib Anemia Atherosclerotic heart disease of [place] coronary artery without angina pectoris CKD (chronic kidney disease), stage III CVA (cerebral vascular accident) Dementia Essential hypertension GERD (gastroesophageal reflux disease) History of GI bleed Inability to walk Nonrheumatic aortic (valve) insufficiency Old myocardial infarction PAF (paroxysmal atrial fibrillation) Polyneuropathy Type 2 diabetes mellitus Home Medications atorvastatin 40 mg tablet 40 mg PO QDAY 12/01/17 [History Last Taken Unknown] donepezil 5 mg tablet 5 mg PO QHS 12/01/17 [History Last Taken Unknown] clopidogrel 75 mg tablet 75 mg PO QDAY 01/14/18 [History Last Taken Unknown] apixaban 5 mg tablet (Eliquis) 2.5 mg (1/2 x 5 mg) PO BID 30 days #30 tabs 05/10/23 [Rx Last Taken Unknown] acetaminophen 325 mg tablet 650 mg (2 x 325 mg) PO Q4H PRN PRN Fever, pain 1- 07/27 #0 tabs 05/18/23 [Rx Last Taken Unknown] pantoprazole 40 mg tablet,delayed release (Protonix) 40 mg PO BID #60 tabs 05/18/23 [Rx Last Taken Unknown] enalapril maleate 10 mg tablet 10 mg PO Q12H 06/24/23 [History Last Taken Unknown] furosemide 20 mg tablet 20 mg PO DAILY 06/24/23 [History Last Taken Unknown] hydrochlorothiazide 25 mg tablet 25 mg PO DAILY 06/24/23 [History Last Taken Unknown] metformin 500 mg tablet,extended release 24 hr 500 mg PO DAILY 90 days #90 tabs 06/26/23 [Rx Last Taken Unknown] Allergy/AdvReac Type Severity Reaction Status Date / Time No Known Allergies Allergy Verified 11/02/23 20:27 Family History Mother Diabetes Son Heart disease Myocardial infarction Daughter Diabetes Daughter Diabetes Surgical History History of breast biopsy History of cardiac catheterization History of cholecystectomy History of colonoscopy (~2010) History of esophagogastroduodenoscopy (EGD) (~2001) Social History household members: children housing: house Smoking Status: Never smoker alcohol intake: never substance use type: does not use caffeine: Yes Type: coffee Number of servings: 4 what type of physical activity do you participate in: none seatbelt use: always do you feel safe at home: Yes Vital Signs Vital Signs Vital Signs: 11/02/23 20:28 11/02/23 20:48 11/02/23 20:49 Temperature 96.3 F L Temperature Source Temporal Pulse Rate 74 72 Pulse Strength Respiratory Rate 16 20 H Respiratory Effort Respiratory Depth Respiratory Pattern Blood Pressure 83/25 L Blood Pressure [BP] Blood Pressure Mean 44 Blood Pressure Mean [BP] Blood Pressure Source Blood Pressure Source [BP] Blood Pressure Position Blood Pressure Position [BP] Blood Pressure Location Blood Pressure Location [BP] Pulse Ox 100 100 Oxygen Delivery Method Room Air Fraction of Inspired Oxygen (FIO2) 11/02/23 20:55 11/02/23 20:46 11/02/23 21:46 Temperature Temperature Source Pulse Rate 64 69 Pulse Strength Respiratory Rate 17 14 Respiratory Effort Respiratory Depth Respiratory Pattern Blood Pressure Blood Pressure [BP] Blood Pressure Mean Blood Pressure Mean [BP] Blood Pressure Source Blood Pressure Source [BP] Blood Pressure Position Blood Pressure Position [BP] Blood Pressure Location Blood Pressure Location [BP] Pulse Ox 100 100 Oxygen Delivery Method Mechanical Ventilator Fraction of Inspired Oxygen (FIO2) 50 40 11/02/23 21:06 11/02/23 21:30 11/02/23 21:36 Temperature Temperature Source Pulse Rate 75 78 81 Pulse Strength Respiratory Rate 16 16 16 Respiratory Effort Respiratory Depth Respiratory Pattern Blood Pressure 95/67 112/56 L 118/46 L Blood Pressure [BP] Blood Pressure Mean 76 74 70 Blood Pressure Mean [BP] Blood Pressure Source Blood Pressure Source [BP] Blood Pressure Position Blood Pressure Position [BP] Blood Pressure Location Blood Pressure Location [BP] Pulse Ox 100 99 100 Oxygen Delivery Method Mechanical Ventilator Mechanical Ventilator Mechanical Ventilator Fraction of Inspired Oxygen (FIO2) 11/02/23 22:00 11/02/23 23:53 11/03/23 00:28 Temperature 90.8 F L 90.9 F L Temperature Source Core Core Pulse Rate 76 66 64 Pulse Strength Respiratory Rate 16 16 16 Respiratory Effort Respiratory Depth Respiratory Pattern Blood Pressure 134/65 H 125/67 H 110/57 L Blood Pressure [BP] Blood Pressure Mean 88 86 74 Blood Pressure Mean [BP] Blood Pressure Source Blood Pressure Source [BP] Blood Pressure Position Blood Pressure Position [BP] Blood Pressure Location Blood Pressure Location [BP] Pulse Ox 100 100 99 Oxygen Delivery Method Mechanical Ventilator Mechanical Ventilator Mechanical Ventilator Fraction of Inspired Oxygen (FIO2) 11/03/23 00:43 11/03/23 00:58 11/03/23 01:13 Temperature 90.4 F L 90.8 F L 90.9 F L Temperature Source Core Core Core Pulse Rate 66 66 66 Pulse Strength Respiratory Rate 16 16 16 Respiratory Effort Respiratory Depth Respiratory Pattern Blood Pressure 106/62 105/60 112/58 L Blood Pressure [BP] Blood Pressure Mean 76 75 76 Blood Pressure Mean [BP] Blood Pressure Source Blood Pressure Source [BP] Blood Pressure Position Blood Pressure Position [BP] Blood Pressure Location Blood Pressure Location [BP] Pulse Ox 100 100 100 Oxygen Delivery Method Mechanical Ventilator Mechanical Ventilator Mechanical Ventilator Fraction of Inspired Oxygen (FIO2) 11/03/23 01:28 11/02/23 22:48 11/02/23 22:30 Temperature 91 F L Temperature Source Core Pulse Rate 62 67 74 Pulse Strength Respiratory Rate 16 16 16 Respiratory Effort Respiratory Depth Respiratory Pattern Blood Pressure 102/58 L 109/73 Blood Pressure [BP] Blood Pressure Mean 72 85 Blood Pressure Mean [BP] Blood Pressure Source Blood Pressure Source [BP] Blood Pressure Position Blood Pressure Position [BP] Blood Pressure Location Blood Pressure Location [BP] Pulse Ox 100 100 100 Oxygen Delivery Method Mechanical Ventilator Mechanical Ventilator Fraction of Inspired Oxygen (FIO2) 40 11/02/23 22:38 11/02/23 22:40 11/02/23 22:44 Temperature Temperature Source Pulse Rate 72 62 65 Pulse Strength Respiratory Rate 17 16 16 Respiratory Effort Respiratory Depth Respiratory Pattern Blood Pressure 109/73 Blood Pressure [BP] Blood Pressure Mean 86 Blood Pressure Mean [BP] Blood Pressure Source Blood Pressure Source [BP] Blood Pressure Position Blood Pressure Position [BP] Blood Pressure Location Blood Pressure Location [BP] Pulse Ox 100 100 Oxygen Delivery Method Fraction of Inspired Oxygen (FIO2) 11/02/23 22:44 11/02/23 22:50 11/02/23 22:51 Temperature Temperature Source Pulse Rate 66 74 Pulse Strength Respiratory Rate 16 16 Respiratory Effort Respiratory Depth Respiratory Pattern Blood Pressure 109/73 131/52 H Blood Pressure [BP] Blood Pressure Mean 86 75 Blood Pressure Mean [BP] Blood Pressure Source Blood Pressure Source [BP] Blood Pressure Position Blood Pressure Position [BP] Blood Pressure Location Blood Pressure Location [BP] Pulse Ox 100 100 Oxygen Delivery Method Fraction of Inspired Oxygen (FIO2) 11/02/23 23:00 11/02/23 23:10 11/02/23 23:20 Temperature Temperature Source Pulse Rate 66 69 Pulse Strength Respiratory Rate 16 16 Respiratory Effort Respiratory Depth Respiratory Pattern Blood Pressure 139/53 H 133/61 H 133/80 H Blood Pressure [BP] Blood Pressure Mean 78 78 93 Blood Pressure Mean [BP] Blood Pressure Source Blood Pressure Source [BP] Blood Pressure Position Blood Pressure Position [BP] Blood Pressure Location Blood Pressure Location [BP] Pulse Ox 100 100 Oxygen Delivery Method Fraction of Inspired Oxygen (FIO2) 11/02/23 23:40 11/02/23 23:45 11/02/23 23:50 Temperature Temperature Source Pulse Rate 63 64 Pulse Strength Respiratory Rate 16 16 Respiratory Effort Respiratory Depth Respiratory Pattern Blood Pressure 115/55 L 125/67 H Blood Pressure [BP] Blood Pressure Mean 73 84 Blood Pressure Mean [BP] Blood Pressure Source Blood Pressure Source [BP] Blood Pressure Position Blood Pressure Position [BP] Blood Pressure Location Blood Pressure Location [BP] Pulse Ox 100 Oxygen Delivery Method Mechanical Ventilator Mechanical Ventilator Fraction of Inspired Oxygen (FIO2) 11/03/23 00:00 11/03/23 00:10 11/03/23 00:20 Temperature Temperature Source Pulse Rate 66 64 Pulse Strength Respiratory Rate 18 16 Respiratory Effort Respiratory Depth Respiratory Pattern Blood Pressure 123/56 H 110/57 L 110/57 L Blood Pressure [BP] Blood Pressure Mean 74 72 71 Blood Pressure Mean [BP] Blood Pressure Source Blood Pressure Source [BP] Blood Pressure Position Blood Pressure Position [BP] Blood Pressure Location Blood Pressure Location [BP] Pulse Ox 100 Oxygen Delivery Method Mechanical Ventilator Fraction of Inspired Oxygen (FIO2) 11/03/23 00:30 11/03/23 00:40 11/03/23 00:50 Temperature 90.3 F L Temperature Source Core Pulse Rate 67 65 65 Pulse Strength Respiratory Rate 16 16 16 Respiratory Effort Respiratory Depth Respiratory Pattern Blood Pressure 103/64 106/62 105/60 Blood Pressure [BP] Blood Pressure Mean 77 75 72 Blood Pressure Mean [BP] Blood Pressure Source Blood Pressure Source [BP] Blood Pressure Position Blood Pressure Position [BP] Blood Pressure Location Blood Pressure Location [BP] Pulse Ox 100 100 100 Oxygen Delivery Method Fraction of Inspired Oxygen (FIO2) 11/03/23 01:00 11/03/23 01:10 11/03/23 01:20 Temperature Temperature Source Pulse Rate 63 67 Pulse Strength Respiratory Rate 16 16 Respiratory Effort Respiratory Depth Respiratory Pattern Blood Pressure 105/64 112/58 L 103/49 L Blood Pressure [BP] Blood Pressure Mean 75 72 62 Blood Pressure Mean [BP] Blood Pressure Source Blood Pressure Source [BP] Blood Pressure Position Blood Pressure Position [BP] Blood Pressure Location Blood Pressure Location [BP] Pulse Ox 100 100 Oxygen Delivery Method Fraction of Inspired Oxygen (FIO2) 11/03/23 01:30 11/03/23 01:40 11/03/23 01:50 Temperature Temperature Source Pulse Rate 67 60 67 Pulse Strength Respiratory Rate 16 16 16 Respiratory Effort Respiratory Depth Respiratory Pattern Blood Pressure 102/55 L 100/35 L 97/52 L Blood Pressure [BP] Blood Pressure Mean 69 54 64 Blood Pressure Mean [BP] Blood Pressure Source Blood Pressure Source [BP] Blood Pressure Position Blood Pressure Position [BP] Blood Pressure Location Blood Pressure Location [BP] Pulse Ox 100 100 100 Oxygen Delivery Method Fraction of Inspired Oxygen (FIO2) 11/03/23 01:51 11/03/23 01:52 11/03/23 02:00 Temperature 91.2 F L Temperature Source Core Pulse Rate 70 66 69 Pulse Strength Respiratory Rate 16 16 16 Respiratory Effort Respiratory Depth Respiratory Pattern Blood Pressure 92/51 L 93/57 L 99/58 L Blood Pressure [BP] Blood Pressure Mean 62 68 68 Blood Pressure Mean [BP] Blood Pressure Source Blood Pressure Source [BP] Blood Pressure Position Blood Pressure Position [BP] Blood Pressure Location Blood Pressure Location [BP] Pulse Ox 100 100 100 Oxygen Delivery Method Mechanical Ventilator Fraction of Inspired Oxygen (FIO2) 11/03/23 02:10 11/03/23 02:20 11/03/23 02:27 Temperature Temperature Source Pulse Rate 65 66 70 Pulse Strength Respiratory Rate 16 16 16 Respiratory Effort Respiratory Depth Respiratory Pattern Blood Pressure 91/55 L 101/43 L 90/66 Blood Pressure [BP] Blood Pressure Mean 67 59 74 Blood Pressure Mean [BP] Blood Pressure Source Blood Pressure Source [BP] Blood Pressure Position Blood Pressure Position [BP] Blood Pressure Location Blood Pressure Location [BP] Pulse Ox 100 100 100 Oxygen Delivery Method Fraction of Inspired Oxygen (FIO2) 11/03/23 02:30 11/03/23 02:42 11/03/23 02:57 Temperature 92.1 F L 92.2 F L Temperature Source Core Core Pulse Rate 72 74 71 Pulse Strength Respiratory Rate 16 15 16 Respiratory Effort Respiratory Depth Respiratory Pattern Blood Pressure 118/53 L 111/64 Blood Pressure [BP] Blood Pressure Mean 74 79 Blood Pressure Mean [BP] Blood Pressure Source Monitor Monitor Blood Pressure Source [BP] Blood Pressure Position Semi-Fowlers Semi-Fowlers Blood Pressure Position [BP] Blood Pressure Location Left Arm Left Arm Blood Pressure Location [BP] Pulse Ox 100 100 100 Oxygen Delivery Method Mechanical Ventilator Mechanical Ventilator Fraction of Inspired Oxygen (FIO2) 40 40 11/03/23 03:12 11/03/23 03:27 11/03/23 03:30 Temperature 92.3 F L 92.3 F L Temperature Source Core Core Pulse Rate 70 73 Pulse Strength Respiratory Rate 21 H 15 Respiratory Effort Mechanically Ventilated Respiratory Depth Normal Respiratory Pattern Normal Blood Pressure 107/65 97/65 Blood Pressure [BP] Blood Pressure Mean 79 75 Blood Pressure Mean [BP] Blood Pressure Source Monitor Monitor Blood Pressure Source [BP] Blood Pressure Position Semi-Fowlers Semi-Fowlers Blood Pressure Position [BP] Blood Pressure Location Left Arm Left Arm Blood Pressure Location [BP] Pulse Ox 100 100 Oxygen Delivery Method Mechanical Ventilator Mechanical Ventilator Mechanical Ventilator Fraction of Inspired Oxygen (FIO2) 40 40 40 11/03/23 04:00 11/03/23 05:00 11/03/23 07:00 Temperature 93.3 F L 94.8 F L 97.7 F L Temperature Source Core Core Core Pulse Rate 71 74 91 Pulse Strength Respiratory Rate 15 14 17 Respiratory Effort Respiratory Depth Respiratory Pattern Blood Pressure Blood Pressure [BP] 90/54 L 101/48 L 94/56 L Blood Pressure Mean Blood Pressure Mean [BP] 66 65 68 Blood Pressure Source Blood Pressure Source [BP] Monitor Monitor Monitor Blood Pressure Position Blood Pressure Position [BP] Semi-Fowlers Semi-Fowlers Semi-Fowlers Blood Pressure Location Blood Pressure Location [BP] Left Arm Left Arm Left Arm Pulse Ox 100 99 99 Oxygen Delivery Method Mechanical Ventilator Mechanical Ventilator Mechanical Ventilator Fraction of Inspired Oxygen (FIO2) 40 40 30 11/03/23 02:55 11/03/23 05:32 11/03/23 05:55 Temperature Temperature Source Pulse Rate 71 82 Pulse Strength Respiratory Rate 18 20 H Respiratory Effort Respiratory Depth Respiratory Pattern Blood Pressure Blood Pressure [BP] Blood Pressure Mean Blood Pressure Mean [BP] Blood Pressure Source Blood Pressure Source [BP] Blood Pressure Position Blood Pressure Position [BP] Blood Pressure Location Blood Pressure Location [BP] Pulse Ox 100 99 99 Oxygen Delivery Method Fraction of Inspired Oxygen (FIO2) 40 40 40 11/03/23 06:00 11/03/23 08:33 11/03/23 08:45 Temperature 96.5 F L Temperature Source Core Pulse Rate 77 87 81 Pulse Strength Respiratory Rate 16 Respiratory Effort Respiratory Depth Respiratory Pattern Blood Pressure 56/39 L 79/45 L Blood Pressure [BP] 88/62 L Blood Pressure Mean 44 56 Blood Pressure Mean [BP] 70 Blood Pressure Source Monitor Monitor Blood Pressure Source [BP] Monitor Blood Pressure Position Semi-Fowlers Blood Pressure Position [BP] Semi-Fowlers Blood Pressure Location Left Arm Blood Pressure Location [BP] Left Arm Pulse Ox 99 Oxygen Delivery Method Mechanical Ventilator Fraction of Inspired Oxygen (FIO2) 30 11/03/23 09:00 11/03/23 10:00 11/03/23 08:00 Temperature 98.1 F Temperature Source Core Pulse Rate 85 Pulse Strength Weak (1+) Respiratory Rate 21 H Respiratory Effort Mechanically Ventilated Respiratory Depth Respiratory Pattern Blood Pressure 118/54 L Blood Pressure [BP] Blood Pressure Mean 75 Blood Pressure Mean [BP] Blood Pressure Source Monitor Blood Pressure Source [BP] Blood Pressure Position Semi-Fowlers Blood Pressure Position [BP] Blood Pressure Location Left Arm Blood Pressure Location [BP] Pulse Ox 100 Oxygen Delivery Method Mechanical Ventilator Mechanical Ventilator Fraction of Inspired Oxygen (FIO2) 30 30 11/03/23 09:15 11/03/23 09:30 11/03/23 09:45 Temperature Temperature Source Pulse Rate 97 90 91 Pulse Strength Respiratory Rate Respiratory Effort Respiratory Depth Respiratory Pattern Blood Pressure 122/54 H 115/55 L 127/62 H Blood Pressure [BP] Blood Pressure Mean 76 75 83 Blood Pressure Mean [BP] Blood Pressure Source Monitor Monitor Monitor Blood Pressure Source [BP] Blood Pressure Position Semi-Fowlers Semi-Fowlers Semi-Fowlers Blood Pressure Position [BP] Blood Pressure Location Left Arm Left Arm Left Arm Blood Pressure Location [BP] Pulse Ox Oxygen Delivery Method Fraction of Inspired Oxygen (FIO2) 11/03/23 10:00 11/03/23 08:00 11/03/23 11:00 Temperature 98.3 F Temperature Source Core Pulse Rate 91 84 91 Pulse Strength Respiratory Rate 18 18 15 Respiratory Effort Respiratory Depth Respiratory Pattern Blood Pressure 126/60 H 120/105 H Blood Pressure [BP] 54/40 L Blood Pressure Mean 82 110 Blood Pressure Mean [BP] 44 Blood Pressure Source Monitor Monitor Blood Pressure Source [BP] Monitor Blood Pressure Position Semi-Fowlers Semi-Fowlers Blood Pressure Position [BP] Semi-Fowlers Blood Pressure Location Left Arm Left Arm Blood Pressure Location [BP] Left Arm Pulse Ox 100 99 100 Oxygen Delivery Method Mechanical Ventilator Mechanical Ventilator Mechanical Ventilator Fraction of Inspired Oxygen (FIO2) 30 30 30 11/03/23 11:15 11/03/23 11:30 11/03/23 08:11 Temperature Temperature Source Pulse Rate 93 90 82 Pulse Strength Respiratory Rate Respiratory Effort Respiratory Depth Respiratory Pattern Blood Pressure 102/48 L 99/50 L Blood Pressure [BP] 56/41 L Blood Pressure Mean 66 66 Blood Pressure Mean [BP] 46 Blood Pressure Source Monitor Monitor Blood Pressure Source [BP] Monitor Blood Pressure Position Semi-Fowlers Semi-Fowlers Blood Pressure Position [BP] Semi-Fowlers Blood Pressure Location Left Arm Left Arm Blood Pressure Location [BP] Left Arm Pulse Ox Oxygen Delivery Method Fraction of Inspired Oxygen (FIO2) 11/03/23 08:15 11/03/23 08:27 11/03/23 11:45 Temperature Temperature Source Pulse Rate 82 84 88 Pulse Strength Respiratory Rate Respiratory Effort Respiratory Depth Respiratory Pattern Blood Pressure 99/47 L Blood Pressure [BP] 51/38 L 57/41 L Blood Pressure Mean 64 Blood Pressure Mean [BP] 42 46 Blood Pressure Source Monitor Blood Pressure Source [BP] Monitor Monitor Blood Pressure Position Semi-Fowlers Blood Pressure Position [BP] Semi-Fowlers Blood Pressure Location Left Arm Blood Pressure Location [BP] Left Arm Left Arm Pulse Ox Oxygen Delivery Method Fraction of Inspired Oxygen (FIO2) 11/03/23 07:40 11/03/23 09:48 11/03/23 11:42 Temperature Temperature Source Pulse Rate 86 92 90 Pulse Strength Respiratory Rate 18 16 16 Respiratory Effort Respiratory Depth Respiratory Pattern Blood Pressure Blood Pressure [BP] Blood Pressure Mean Blood Pressure Mean [BP] Blood Pressure Source Blood Pressure Source [BP] Blood Pressure Position Blood Pressure Position [BP] Blood Pressure Location Blood Pressure Location [BP] Pulse Ox 90 100 100 Oxygen Delivery Method Fraction of Inspired Oxygen (FIO2) 30 30 30 11/03/23 12:00 11/03/23 12:15 11/03/23 12:37 Temperature 97.5 F L Temperature Source Core Pulse Rate 98 96 Pulse Strength Respiratory Rate 16 Respiratory Effort Mechanically Ventilated Respiratory Depth Respiratory Pattern Blood Pressure 101/52 L 101/49 L Blood Pressure [BP] Blood Pressure Mean 68 66 Blood Pressure Mean [BP] Blood Pressure Source Monitor Monitor Blood Pressure Source [BP] Blood Pressure Position Semi-Fowlers Semi-Fowlers Blood Pressure Position [BP] Blood Pressure Location Left Arm Left Arm Blood Pressure Location [BP] Pulse Ox 100 Oxygen Delivery Method Mechanical Ventilator Mechanical Ventilator Fraction of Inspired Oxygen (FIO2) 30 30 11/03/23 12:30 11/03/23 12:45 11/03/23 13:00 Temperature 98.1 F Temperature Source Core Pulse Rate 93 91 90 Pulse Strength Respiratory Rate 16 Respiratory Effort Respiratory Depth Respiratory Pattern Blood Pressure 99/50 L 100/50 L 101/49 L Blood Pressure [BP] Blood Pressure Mean 66 66 66 Blood Pressure Mean [BP] Blood Pressure Source Monitor Monitor Monitor Blood Pressure Source [BP] Blood Pressure Position Semi-Fowlers Semi-Fowlers Semi-Fowlers Blood Pressure Position [BP] Blood Pressure Location Left Arm Left Arm Left Arm Blood Pressure Location [BP] Pulse Ox 100 Oxygen Delivery Method Mechanical Ventilator Fraction of Inspired Oxygen (FIO2) 30 11/03/23 14:26 11/03/23 13:30 11/03/23 14:00 Temperature Temperature Source Pulse Rate 94 97 96 Pulse Strength Respiratory Rate 16 16 Respiratory Effort Respiratory Depth Respiratory Pattern Blood Pressure 108/59 L 118/51 L Blood Pressure [BP] Blood Pressure Mean 75 73 Blood Pressure Mean [BP] Blood Pressure Source Monitor Monitor Blood Pressure Source [BP] Blood Pressure Position Semi-Fowlers Semi-Fowlers Blood Pressure Position [BP] Blood Pressure Location Left Arm Left Arm Blood Pressure Location [BP] Pulse Ox 100 100 Oxygen Delivery Method Mechanical Ventilator Fraction of Inspired Oxygen (FIO2) 30 30 Weight Weight: 69.8 kg Body Mass Index (BMI) 30.0 EEG Results Procedure Details EEG Procedure Details: Study start time: 11/03/2023 09:05 AM End Time: 11/03/2023 09:28 AM History: ?78 year old male with encephalopathy ? Indication: ?rule out seizure Technical Description: This is a 21-channel digital EEG recording with time- locked video and single-channel electrocardiogram. Electrodes are placed according to the 10 to 20 International System. Additional T1 and T2 electrodes were placed. The patient was monitored continuously by EEG technicians by video and EEG recording was reviewed intermittently with annotations to the EEG record made every two hours.? Portions of this record are reviewed using band pass filters of 1 to 70 Hz and sensitivity of 7mV/mm. ? EEG DESCRIPTION ? Background: This recording was obtained during intubated and sedated state. In the maximally alert state, a posterior dominant rhythm was absent. During drowsiness, there was attenuation of the waking background. Stage II sleep architecture was not seen. Background was comprised of generalized low amplitude delta slow activity. No clear background reactivity to external stimulus was observed. ? Activation Procedures: Photic stimulation induced normal physiological response. Sporadic Epileptiform Discharges: none Focal slow activity: none Rhythmic or Periodic activity: ?none ? Seizures: none Patient Events: none EEG DIAGNOSIS Diffuse slow activity, severe in degree ? ? CLINICAL INTERPRETATION This routine EEG is indicative of severe degree of encephalopathy. No epileptiform activity or seizures were observed. Physical Exam Narrative Exam completed off sedation. No response to noxious stimulation or voice pupils are 2mm and sluggish responsivenes b/l OCC intact and then intermittently has roving eye movements cough intact No posturing noted with noxious stim No withdrawal to noxious stim, no triple flexion noted Medical Records Data Medical Nutrition Assessment Dietitian: Malnutrition Criteria Met Start: 11/03/23 14:20 Freq: Status: Active Protocol: Document 11/03/23 14:49 RMA (Rec: 11/03/23 14:50 RMA [id number]) Nutrition Malnutrition Evidence of Malnutrition Exists Yes Malnutrition (severe): Chronic Evidenced By Suboptimal Energy Intake ( Severe),Weight Loss (Severe) Intake Problem Inadequate Oral Intake Etiology related to intubated state Signs/Symptoms as evidenced by NPO Status Active Problem Recommendation Dietitian Recommendations/Changes NPO while intubated. No TF today per Dr. Tia. Recommend enteral nutrition support while intubated once medically indicated; start TF with Vital AF 1.2 [place] @ 10mL/ hr and increase rate by 10mL/ hr Q 6-8 hours as tolerated until goal rate of 40mL/hr achieved. Recommend water flush 100mL Q 6 hours. TF at goal rate and water flush will provide 1152 kcal, 72 gm pro and 1179 mL/free water per day . Dion BID via OG tube to support wound healing as indicated. Will monitor weight, labs, medical course and follow-up with nutrition interventions. Lab / Micro Data 11/03/23 08:36 11/03/23 08:15 Labs: Laboratory Results - last 24 hr 11/02/23 20:15: WBC 11.4 H, RBC 3.35 L, Hgb 9.5 L, Hct 31.3 L, MCV 93.4, MCH 28.4, MCHC 30.4 L, RDW Std Deviation 69.3 H, RDW Coeff of Deep 20.4 H, Plt Count 319, MPV 11.8, Immature Gran % (Auto) 1.100 H, Neut % (Auto) 89.9 H, Lymph % (Auto) 5.9 L, [place] % (Auto) 2.8, Eos % (Auto) 0.0, Baso % (Auto) 0.3, Absolute Neuts (auto) 10.3 H, Absolute Lymphs (auto) 0.68 L, Nucleated RBC % 0, Platelet Estimate ADEQUATE, RBC Morphology N CHROM, Hypochromasia 1+, Anisocytosis 1+, Macrocytosis 1+, Janeen Cells 1+, Acanthocytes (Spur) 1+, PT 18.7 H, INR 1.6, APTT 35.8, Sodium Cancelled, Potassium Cancelled, Chloride Cancelled, Carbon Dioxide Cancelled, Anion Gap Cancelled, BUN Cancelled, Creatinine Cancelled, Estim Creat Clear Calc Cancelled, Est GFR (MDRD) Af Amer Cancelled, Est GFR (MDRD) Non-Af Cancelled, BUN/Creatinine Ratio Cancelled, Glucose Cancelled, Calcium Cancelled, Total Bilirubin Cancelled, AST Cancelled, ALT Cancelled, Alkaline Phosphatase Cancelled, Troponin I High Sens Cancelled, Total Protein Cancelled, Albumin Cancelled, Globulin Cancelled, Albumin/Globulin Ratio Cancelled 11/02/23 21:00: Urine Color Yellow, Urine Clarity Cloudy, Urine pH 5.0, Ur Specific [place] 1.020, Urine Protein 30 H, Urine Glucose (UA) 50 H, Urine Ketones 5 H, Urine Occult Blood 10 H, Urine Nitrite Negative, Urine Bilirubin Negative, Urine Urobilinogen Normal, Ur Leukocyte Esterase 500 H, Urine RBC 0 SEEN, Urine WBC 25-50 SEEN, Ur Squamous Epith Cells 10-25 SEEN, Urine Bacteria 0 SEEN, Hyaline Casts 25-50 SEEN, Urine Mucus 0 SEEN 11/02/23 21:10: Lactic Acid Cancelled 11/02/23 22:15: Sodium 137, Potassium 4.6, Chloride 106, Carbon Dioxide 9.0 L*, Anion Gap 22 H, BUN 153 H*, Creatinine 7.81 H*, Estim Creat Clear Calc 5.13, Est GFR (MDRD) Af Amer 6 L, Est GFR (MDRD) Non-Af 5 L, BUN/Creatinine Ratio 19.6, Glucose 190 H, Lactic Acid 4.2 H*, Calcium 7.6 L, Total Bilirubin 0.40, AST 38 H , ALT 19, Alkaline Phosphatase 87, Troponin I High Sens 249 H*, Total Protein 6.4, Albumin 2.5 L, Globulin 3.9, Albumin/Globulin Ratio 0.6 L 11/02/23 22:33: Total Creatine Kinase 388 H 11/03/23 02:55: Lactic Acid 2.0, Troponin I High Sens 266 H* 11/03/23 04:20: Troponin I High Sens 266 H*, Prealbumin 14.3 L 11/03/23 08:15: APTT > 200.0 H*, Sodium 139, Potassium 3.9, Chloride 108 H, Carbon Dioxide 10.0 L, Anion Gap 21 H, BUN 136 H*, Creatinine 7.08 H, Estim Creat Clear Calc 5.71, Est GFR (MDRD) Af Amer 7 L, Est GFR (MDRD) Non-Af 6 L, BUN/Creatinine Ratio 19.2, Glucose 253 H, Calcium 7.5 L, Total Bilirubin 0.40, AST 44 H, ALT 20, Alkaline Phosphatase 79, Total Protein 6.0 L, Albumin 2.4 L, Globulin 3.6, Albumin/Globulin Ratio 0.7 L 11/03/23 08:36: WBC 15.0 H, RBC 2.72 L, Hgb 7.8 L, Hct 24.8 L, MCV 91.2, MCH 28.7, MCHC 31.5 L, RDW Std Deviation 68.3 H, RDW Coeff of Deep 20.5 H, Plt Count 258, MPV 11.6, Immature Gran % (Auto) 0.500, Neut % (Auto) 90.9 H, Lymph % (Auto) 4.3 L, [place] % (Auto) 4.0, Eos % (Auto) 0.1, Baso % (Auto) 0.2, Absolute Neuts (auto) 13.7 H, Absolute Lymphs (auto) 0.64 L, Nucleated RBC % 0, Anisocytosis 2+, [place] Cells 2+, Schistocytes 1+ 11/03/23 12:21: POC Glucose 249 H Micro: Microbiology 11/02/23 21:00 Urine, Catheterized Urine Culture - Preliminary Gram negative bessie GNR lactose stock control supervisor Gram positive organism 11/03/23 00:00 Sputum, Tracheal Aspirate Gram Stain - Final 11/02/23 21:00 Urine Catheter - Maguire Legionella Antigen - Final 11/02/23 21:00 Urine Catheter - Maguire Streptococcus pneumoniae Antigen (M - Final 11/02/23 21:00 Mucosa - Nasopharyngeal SARS-CoV-2, Influenza & RSV (PCR) - Final ABG Data ABG results: ABG 11/02/23 11/03/23 11/03/23 22:03 03:24 05:49 Specimen Type ART ART ART Sample Site L Fem R Brach L Brach pH 7.18 L* 7.19 L* 7.30 L Bicarbonate Actual 7.3 L 7.8 L 8.8 L Total CO2 8 8 9 Base Excess -21 L -21 L -18 L O2 Saturation 100 H 100 H 100 H O2 % 40.0 40.0 40.0 ABG pCO2 19.4 L 20.4 L 17.9 L* ABG pO2 235 H 211 H 212 H Romel Test N/A Respiration Rate 16 16 16 O2 Delivery Device Adult Vent Adult Vent Adult Vent Vent Mode AC AC AC Tidal Volume 400.0 400.0 400.0 POC PEEP 5 5 5 Crit Call To/Read Back Yes Yes Yes Blood Gas Notified Whom kristyn Medrano Blood Gas Notified Time 22:05:04 03:26:15 05:53:21 Imagaing Radiology Impression Brain CT 11/02/23 20:52 IMPRESSION: No acute intracranial abnormality. Minimal chronic parenchymal changes for age. 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 Mentioned in 2009. Prominent intracranial and scalp arterial calcifications. Electronically Signed: Dorothea Jane MD at 23:03 EST , Chest X-Ray 11/02/23 22:35 IMPRESSION: Mildly low endotracheal tube, consider retracting it 1-1.5 cm. Adequately positioned enteric tube. Electronically Signed: Dorothea Jane MD at 23:34 EST , Abdomen/Pelvis CT 11/02/23 23:07 IMPRESSION: 1. 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 2. Multifocal thick-walled appearance of small bowel, especially proximal and mid small bowel. And almost diffuse at least mildly thick-walled appearance of the colon. 3. Findings may be due to inflammation and/or some component of superimposed ischemia involving small bowel and colon. 4. No ty pneumatosis. Slight mesenteric haziness and prominent vessels medial to some mildly thick-walled small bowel loops in the left upper quadrant. 5. Correlate with evidence of colitis. 6. Mild focal right decreased upper body height at L1 without visible acute fracture line. 7. Cholecystectomy. 8. Advanced coronary artery calcifications and/or stents. Electronically Signed: Dorothea Jane MD at 1:48 EST , ADDENDUM: 11/03/23 0242 IMPRESSION: 1. 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 2. Multifocal thick-walled appearance of small bowel, especially proximal and mid small bowel. And almost diffuse at least mildly thick-walled appearance of the colon. 3. Findings may be due to inflammation and/or some component of superimposed ischemia involving small bowel and colon. 4. No ty pneumatosis. Slight mesenteric haziness and prominent vessels medial to some mildly thick-walled small bowel loops in the left upper quadrant. 5. Correlate with evidence of colitis. 6. Mild focal right decreased upper body height at L1 without visible acute fracture line. 7. Cholecystectomy. 8. Advanced coronary artery calcifications and/or stents. N.B. : The above Results were Read Back by Dorothea Jane MD to OSCAR PALMA MD, and understanding confirmed on 11/03/2023 02:35:26 (ET). Electronically Signed: Dorothea Jane MD at 1:48 EST , Chest X-Ray 11/03/23 04:15 IMPRESSION: 1. No suspicious infiltrates. 2. Adequately positioned endotracheal and enteric tube. 3. Standard PA and lateral views are suggested when clinically feasible to evaluate for subtle nodules versus artifacts. Electronically Signed: Dorothea Jane MD at 8:46 EST , Chest X-Ray 11/03/23 05:45 IMPRESSION: Well-positioned endotracheal and enteric tubes. Otherwise stable chest. Electronically Signed: Dorothea Jane MD at 7:21 EST , Echocardiogram 11/03/23 07:19 Interpretation Summary The estimated ejection fraction is 65-70 %. Mild concentric left ventricular hypertrophy. Severe mitral annular calcification. The mitral valve chordae are thickened and/or calcified. Mild aortic stenosis. Mild (1+) aortic valve insufficiency. Ordering Physician: Renee Nicole Referring Physician: Namita Hassan M.D. Performed By: Emy Carlson RDCS Chest X-Ray 11/03/23 14:35 IMPRESSION: Satisfactory appearance of right PICC. Electronically Signed: Doretha Nielsen MD at 14:52 EST , Active Medications Active Medications Active Medications: Current Medications Generic Name Dose Route Start Last Admin Trade Name Freq PRN Reason Stop Dose Admin Acetaminophen 650 mg 11/03/23 02:42 Acetaminophen 325 Mg Tablet PO Q4H PRN PRN Fever, pain 1-07/27 Atorvastatin Calcium 40 mg 11/03/23 22:00 Atorvastatin Calcium 40 Mg Tablet PO QHS [facility] Chlorhexidine Gluconate 1 each 11/03/23 10:00 11/03/23 11:34 Chlorhexidine Gluc 2% Cloth 1 Each [place] TOPICAL Not Given DAILY [facility] Chlorhexidine Gluconate 15 ml 11/03/23 10:00 11/03/23 10:55 Chlorhexidine 15 Ml PO 15 ml BID DUSTIN Administration Dextrose 0 gm 11/03/23 07:21 Dextrose 50%-Water 25 Gm/50 Ml Disp.Syrin IV X1 PRN Hypoglycemia Protocol Donepezil HCl 5 mg 11/03/23 22:00 Donepezil Hcl 5 Mg Tablet PO QHS [facility] Glucagon 1 mg 11/03/23 07:21 Glucagon 1 Mg/Ml Syringe IM X1 PRN Hypoglycemia Heparin Sodium (Porcine) 0 unit 11/03/23 03:05 Heparin Injection (Vial) 5,000 Unit/Ml Vial IV UD PRN dose adjustment Protocol Vancomycin IV-PHARMACY TO DOSE 500 mls @ 250 mls/hr 11/03/23 00:32 1 each/ Sodium Chloride IV X1 PRN Rx to Dose Protocol Piperacillin Sod/Tazobactam 50 mls @ 12.5 mls/hr 11/03/23 10:00 11/03/23 11:39 Sod 3.375 gm/ Sodium Chloride IV 12.5 mls/hr Q12 DUSTIN Administration Pantoprazole Sodium 40 mg/ 110 mls @ 330 mls/hr 11/03/23 10:00 11/03/23 12:11 Sodium Chloride IV Infused Q24 DUSTIN Infusion Heparin Sodium/Dextrose 25,000 units in 250 mls @ 10 mls/hr 11/03/23 02:42 11/03/23 10:58 CONT INF 700 units/hr .Q25H DUSTIN 7 mls/hr Titration Protocol As Directed Sodium Chloride 250 mls @ 15 mls/hr 11/03/23 02:43 IV .[id number] PRN Additional IVPB Infusion Sodium Chloride 250 mls @ 15 mls/hr 11/03/23 02:43 IV .[id number] PRN Saline Flush Sodium Bicarbonate 150 meq/ 1,150 mls @ 150 mls/hr 11/03/23 03:40 11/03/23 11:42 Dextrose IV 150 mls/hr .[id number] DUSTIN Administration Norepinephrine Bitartrate 8 mg 250 mls @ 9.375 mls/hr 11/03/23 08:20 11/03/23 14:00 / Sodium Chloride CONT INF 9 mcg/min .[id number] DUSTIN 16.9 mls/hr Titration Protocol 5 MCG/MIN Insulin Human Lispro 0 unit 11/03/23 11:00 11/03/23 12:25 Insulin Lispro 100 Unit/Ml Insuln.Pen SC 2 u ACHS DUSTIN Administration Protocol Lorazepam 2 mg 11/03/23 07:26 11/03/23 07:36 Lorazepam 2 Mg/Ml Syringe IV 2 mg Q1H PRN Administration SEIZURES Sodium Chloride 10 - 40 ml 11/03/23 02:43 0.9% Saline Lock 10 Ml Syringe IV UD PRN SALINE FLUSH Vancomycin Protocol 1 lab 11/04/23 05:00 Vancomycin Trough/Random Due 11/04/23 08:00 DAILY DUSTIN
[2023-11-03 16:34] LABS: Albumin, Serum 2.4 g/dL (3.2-5.0); BUN 128 mg/dL (7-18); BUN/Creat Ratio 19.1 RATIO (10-20); Calcium,Total 7.2 mg/dL (8.5-10.1); Chloride 104 mmol/L (98-107); Creatinine, Serum 6.69 mg/dL (0.55-1.02); EST Glomerular Filtration Rate 6 mL/min (>60); Est Glom Filt Rate - Afr Amer 8 mL/min (>60); Estimated Creatinine Clearance 6.04 ml/min; Glucose 315 mg/dL (74-106); Phosphorus 3.8 mg/dL (2.5-4.9); Potassium 3.1 mmol/L (3.5-5.1); Sodium Level 139 mmol/L (136-145)
[2023-11-03] MEDS: Potassium Chloride 20mEq/100mL 20 MEQ/100 ML IV.SOLN. 100 MEQ IV BOLUS (17:08)
--- NOTE | 2023-11-03 17:48 | PCM.HOSP.N ---
Hospitalist Note Spoke with neurology who recommended transfer for continuous EEG, keppra 500 BID and repeating MRI in 72 hours. Went to speak with son at bedside who was designated as decision maker and extensively discussed transfer, he said he is not sure if she would even want to live this way and that she would not want dialysis and certain extra measures and is leaning towards comfort care but wants to reassess in the AM before deciding, after discussing all aspects he wants to forego transfer at this time and reevaluate in the morning to decide further on transfer versus comfort care versus continuing current management. Discussed with neurology who recommended EEG in the a.m. if patient not being transferred and they will reevaluate tomorrow. Provided support, discussed CODE STATUS extensively with son, determination is to keep her intubated but CPR/chest compressions overnight if patient's heart were to stop beating. All questions answered
[2023-11-03 18:05] LABS: Bedside Glucose 286 mg/dL (74-106)
[2023-11-03 18:19] LABS: Partial Thromboplast Time > 200.0 Seconds (24.1-36.2)
[2023-11-03] MEDS: Atorvastatin Calcium 40 MG Tablet PO (21:24)
[2023-11-03] MEDS: Donepezil HCl 5 MG Tablet PO (21:24)
[2023-11-03 21:51] LABS: Bedside Glucose 281 mg/dL (74-106)
[2023-11-04] VITALS (38 sets, daily range): BP systolic 86–149; BP diastolic 48–72; PULSE 76–111; RESP 1–18; TEMP 36.2–37.2; O2SAT 93–100; BMI 31.1
[2023-11-04] MEDS: Sodium Bicarbonate 150 MEQ in Dextrose 5%-Water (1000mL Bag) 1,000 ML IV (02:36)
[2023-11-04 03:04] LABS: Partial Thromboplast Time > 200.0 Seconds (24.1-36.2)
[2023-11-04 03:51] LABS: Absolute Lymphocyte Count 0.51 X10^3/uL (0.83-4.51); Absolute Neutrophil Count 11.8 X10^3/uL (2.0-7.7); Basophil# 0.02 X10^3/uL; Basophil% 0.2 % (0-1); Hematocrit 21.1 % (37-47); Hemoglobin 7.3 g/dL (12.0-15.0); Lymphocyte # 0.51 X10^3/ul (0.83-4.51); Lymphocyte % 3.9 % (19-41); Mean Corp Hgb Conc 34.6 g/dL (32-36); Mean Corpuscular Hgb 29.2 pg (27.0-32.0); Mean Corpuscular Volume 84.4 fL (81-99); Mean Platelet Vol. 10.5 fl (6.2-12.0); NRBC Flagged by Analyzer 0.2 % (0-5); Neutrophil % 89.1 % (47-70); POSITIVE DIFFERENTIAL YES; POSITIVE MORPHOLOGY YES; Platelet Count 197 K/mm3 (150-450); RBC Distribution Width CV 20.1 % (11.6-14.6); RBC Distribution Width SD 61.7 fl (35.1-43.9); White Blood Count 13.2 K/mm3 (4.4-11.0)
[2023-11-04 04:05] LABS: Differential Indicated SCAN CRITERIA MET
[2023-11-04 04:21] LABS: ALB/GLOB Ratio 0.6 RATIO (0.9-2.4); AST(SGOT) 53 U/L (15-37); Alanine Aminotransfer ALT/SGPT 17 U/L (13-56); Albumin, Serum 2.1 g/dL (3.2-5.0); Alkaline Phosphatase 70 U/L (45-117); Anion Gap 19 (5-15); BUN 116 mg/dL (7-18); BUN/Creat Ratio 20.5 RATIO (10-20); Calcium,Total 6.7 mg/dL (8.5-10.1); Chloride 99 mmol/L (98-107); Creatinine, Serum 5.65 mg/dL (0.55-1.02); EST Glomerular Filtration Rate 8 mL/min (>60); Est Glom Filt Rate - Afr Amer 9 mL/min (>60); Estimated Creatinine Clearance 7.28 ml/min; Globulin 3.4 g/dL (2.2-4.2); Glucose 307 mg/dL (74-106); Potassium 2.2 mmol/L (3.5-5.1); Protein, Total 5.5 g/dL (6.4-8.2); Sodium Level 140 mmol/L (136-145)
[2023-11-04 04:32] LABS: Anisocytosis 3+; Differential Comment S
[2023-11-04] MEDS: 0.9% Saline Lock 10 ML Syringe IV (04:47)
[2023-11-04] MEDS: Potassium Chloride Oral Soln 20 MEQ/15 ML UDC 60 MEQ PO ×2 (04:48→06:40)
[2023-11-04] MEDS: Insulin Lispro 100 UNIT/ML INSULN.PEN SC ×2 (06:10→12:13)
[2023-11-04] MEDS: Vancomycin Trough/Random Due 1 LAB MC (06:10)
[2023-11-04 06:29] LABS: Vancomycin, Random Level 25.2 ug/mL (0.0-15.0)
[2023-11-04 06:30] LABS: Bedside Glucose 293 mg/dL (74-106)
--- NOTE | 2023-11-04 06:32 | PHA.PHARE_ITS ---
Consult Antibiotic Management Pharmacy has been consulted to manage selected antibiotic: Vancomycin Type of Intervention Type of Consult: Follow-up Suspected Infection Suspected Infection: Sepsis Labs Labs: Sodium 140 mmol/L (136-145) 11/04/23 03:45 Potassium 2.2 mmol/L (3.5-5.1) L* 11/04/23 03:45 Chloride 99 mmol/L (98-107) 11/04/23 03:45 Carbon Dioxide 22.0 mmol/L (21.0-32.0) 11/04/23 03:45 Anion Gap 19 (5-15) H 11/04/23 03:45 BUN 116 mg/dL (7-18) H* 11/04/23 03:45 Creatinine 5.65 mg/dL (0.55-1.02) H 11/04/23 03:45 Est GFR (MDRD) Af Amer 9 mL/min (>60) L 11/04/23 03:45 Est GFR (MDRD) Non-Af 8 mL/min (>60) L 11/04/23 03:45 BUN/Creatinine Ratio 20.5 RATIO (10-20) H 11/04/23 03:45 Glucose 307 mg/dL (74-106) H 11/04/23 03:45 Random Vancomycin 25.2 ug/mL (0.0-15.0) H 11/04/23 05:20 Microbiology Microbiology: Microbiology 11/02/23 21:00 Urine, Catheterized Urine Culture - Preliminary Gram negative bessie GNR lactose weatherization technician Gram positive organism 11/03/23 00:00 Sputum, Tracheal Aspirate Gram Stain - Final 11/02/23 21:00 Urine Catheter - Maguire Legionella Antigen - Final 11/02/23 21:00 Urine Catheter - Maguire Streptococcus pneumoniae Antigen (M - Final 11/02/23 21:00 Mucosa - Nasopharyngeal SARS-CoV-2, Influenza & RSV (PCR) - Final Dosing Weight Weight used for dosin.3 kg Estimated Creatinine Clearance Estimated Creatinine Clearance: 7.3 Goal Trough Goal Trough: 15-20 mcg/mL Pharmacy Plan for Drug Dosing Pharmacy Plan for Drug Dosing: Random vancomycin level was 25.2mg/L. This was approximately 29 hours post-dose. With just minor improvement in renal function and the trough >20, we will co ntinue to hold further dosing. Another random level will be drawn tomorrow morning. Pharmacy Service will continue to monitor and adjust dosing as required. Follow-Up Labs Follow-Up Labs: Trough: Vancomycin (random) Date/Time Labs Ordered Labs to be done on [date and time ordered]: 11/05/23 @0600 random
[2023-11-04] MEDS: CHLORHEXIDINE GLUC 2% CLOTH 1 EACH TOWELETTE TOPICAL (06:40)
--- NOTE | 2023-11-04 07:11 | PN.CC_ITS ---
Assessment & Plan Assessment/Plan (1) Sepsis with encephalopathy and septic shock: QUALIFIERS: Sepsis type: sepsis due to unspecified organism Qualified Code(s): A41.9 - Sepsis, unspecified organism; R65.21 - Severe sepsis with septic shock; G93.41 - Metabolic encephalopathy (2) Respiratory failure: QUALIFIERS: Chronicity: acute Respiratory failure complication: hypoxia Qualified Code(s): J96.01 - Acute respiratory failure with hypoxia PLAN: Plan RECOMMENDATIONS: 1. Continue assist-control mode mechanical ventilation. Wean FiO2 for saturations greater than 90%. 2. Continue empiric antibiotics to cover for potential aspiration. 3. Continue seizure precautions, Keppra and as needed Ativan. 4. Continue appropriate GI prophylaxis. 5. Continue vasopressor support, if needed, to maintain hemodynamic stability. 6. Awaiting family decision regarding goals of care. IMPRESSIONS: 1. Acute hypoxemic respiratory failure The patient was initially intubated in the emergency department due to a failure to protect airway. There were also concerns for an acute aspiration event. The patient is currently stable on assist-control mode mechanical ventilation. FiO2 and PEEP will be weaned to maintain saturations at or above 90%. Plan to continue empiric antibiotics, pending infectious workup. 2. Septic shock The patient presented with sepsis due to suspected aspiration pneumonia versus UTI with acute sepsis related organ dysfunction as evidenced by lactic acidemia and fluid refractory hypotension, requiring vasopressor support. The patient remains on appropriate broad-spectrum antimicrobials, pending infectious workup. Plan to continue vasopressor support, if needed, to maintain a mean arterial pressure at or above 65 mmHg. 3. Encephalopathy with new onset seizure activity There is an unclear amount of downtime that occurred at home. The patient's current clinical state is certainly concerning for anoxic brain injury. She also developed new onset seizure activity this morning. Therefore, nonconvulsive status epilepticus is also a possibility. Neurology subsequently evaluated the patient. EEG did not demonstrate any epileptiform discharges. However, the patient will remain on Keppra, seizure precautions and as needed Ativan. Ultimately, the recommendation was for transfer to a tertiary care facility for continuous EEG monitoring. However, the patient's family is currently considering terminal extubation and initiation of comfort care measures. 4. Acute kidney injury/anion gap metabolic acidosis Most likely prerenal in etiology with a component of ischemic ATN. Nephrology is currently following to assist with medical management. 5. Anemia Continue to monitor blood counts for now. Recommend holding home Plavix. Transfuse if hemoglobin drops below 7 g/dL. Continue PPI therapy as ordered. 6. Troponin elevation Most likely secondary to demand ischemia. Echocardiogram was unremarkable.. Continue current supportive care. 7. History of diabetes mellitus/prior CVA/dementia/paroxysmal atrial fibrillation/hypertension/hyperlipidemia Complicates care, management, recovery and prognosis. Continue to hold home antihypertensives. Continue sliding scale insulin as needed. TIME: 37 minutes of critical care time, independent of procedures, was spent addressing the patient's acute hypoxemic respiratory failure, encephalopathy with new onset seizure activity, acute kidney injury, anemia, review of all data and collaboration with the care team. Subjective Subjective The patient was seen and examined at the bedside this morning. Events from the last 24 hours have been reviewed. The patient was able to be weaned off of Levophed. She remains on assist-control mode of mechanical ventilation with an FiO2 requirement of 30%. The patient remains neurologically unchanged from previous. She has not had any focal seizure activity overnight. EEG completed yesterday demonstrated severe encephalopathy without epileptiform activity. There were initial recommendations by neurology to have the patient transferred to a facility with continuous EEG capabilities. However, the patient's family is currently considering terminal extubation and initiation of comfort care measures. Therefore, the transfer was placed on hold. The patient is currently documented to be overall net +7.4 L for the hospital ization. White count remains mildly elevated at 13.2. Hemoglobin is stable at 7.3 g/dL. Chemistry profile this morning demonstrated a potassium of 2.2 with a bicarbonate of 22, anion gap of 19, BUN of 116 and creatinine of 5.65. Objective Data Objective Data The patient's most recent lab work, culture data and imaging studies have all been personally reviewed. Gram-negative bessie was isolated from urine culture. Blood and sputum cultures are pending. Vital Signs: Vital Signs Temp Pulse Resp BP Pulse Ox O2 Del Method FiO2 97.1 F L 80 17 106/57 L 100 Mechanical Ventilator 30 11/04/23 07:00 11/04/23 07:00 11/04/23 07:00 11/04/23 07:00 11/04/23 07:00 11/04/23 07:00 11/04/23 07:00 Oxygen Delivery Method Mechanical Ventilator Weight: 159 lb 6.307 oz Body Mass Index (BMI) 31.1 Intake & Output: Intake and Output for Last 24 Hours 11/02/23 11/03/23 11/04/23 23:59 23:59 23:59 Intake Total 1999 4824.28 / 4824.28 1348.37 / 1348.37 Output Total 100 / 400 600 / 600 Balance 1999 4724.28 / 4424.28 748.37 / 748.37 Medical Nutrition Assessment Dietitian: Malnutrition Criteria Met Start: 11/03/23 14:20 Freq: Status: Active Protocol: Document 11/03/23 14:49 RMA (Rec: 11/03/23 14:50 RMA [id number]) Nutrition Malnutrition Evidence of Malnutrition Exists Yes Malnutrition (severe): Chronic Evidenced By Suboptimal Energy Intake ( Severe),Weight Loss (Severe) Intake Problem Inadequate Oral Intake Etiology related to intubated state Signs/Symptoms as evidenced by NPO Status Active Problem Recommendation Dietitian Recommendations/Changes NPO while intubated. No TF today per Dr. Tai. Recommend enteral nutrition support while intubated once medically indicated; start TF with Vital AF 1.2 Davie @ 10mL/ hr and increase rate by 10mL/ hr Q 6-8 hours as tolerated until goal rate of 40mL/hr achieved. Recommend water flush 100mL Q 6 hours. TF at goal rate and water flush will provide 1152 kcal, 72 gm pro and 1179 mL/free water per day . Dion BID via OG tube to support wound healing as indicated. Will monitor weight, labs, medical course and follow-up with nutrition interventions. Lab / Micro Data Attestation: I reviewed the patient's lab results. 11/04/23 03:45 11/04/23 03:45 Labs: Laboratory Results - last 24 hr 11/03/23 08:15: APTT > 200.0 H*, Sodium 139, Potassium 3.9, Chloride 108 H, Carbon Dioxide 10.0 L, Anion Gap 21 H, BUN 136 H*, Creatinine 7.08 H, Estim Creat Clear Calc 5.71, Est GFR (MDRD) Af Amer 7 L, Est GFR (MDRD) Non-Af 6 L, BUN/Creatinine Ratio 19.2, Glucose 253 H, Calcium 7.5 L, Total Bilirubin 0.40, AST 44 H, ALT 20, Alkaline Phosphatase 79, Total Protein 6.0 L, Albumin 2.4 L, Globulin 3.6, Albumin/Globulin Ratio 0.7 L 11/03/23 08:36: WBC 15.0 H, RBC 2.72 L, Hgb 7.8 L, Hct 24.8 L, MCV 91.2, MCH 28. 7, MCHC 31.5 L, RDW Std Deviation 68.3 H, RDW Coeff of Deep 20.5 H, Plt Count 258, MPV 11.6, Immature Gran % (Auto) 0.500, Neut % (Auto) 90.9 H, Lymph % (Auto) 4.3 L, [place] % (Auto) 4.0, Eos % (Auto) 0.1, Baso % (Auto) 0.2, Absolute Neuts (auto) 13.7 H, Absolute Lymphs (auto) 0.64 L, Nucleated RBC % 0, Anisocytosis 2+, [place] Cells 2+, Schistocytes 1+ 11/03/23 12:21: POC Glucose 249 H 11/03/23 15:15: Sodium 139, Potassium 3.1 L, Chloride 104, Carbon Dioxide 16.0 L , BUN 128 H*, Creatinine 6.69 H, Estim Creat Clear Calc 6.04, Est GFR (MDRD) Af Amer 8 L, Est GFR (MDRD) Non-Af 6 L, BUN/Creatinine Ratio 19.1, Glucose 315 H, Calcium 7.2 L, Phosphorus 3.8, Albumin 2.4 L 11/03/23 17:15: APTT > 200.0 H* 11/03/23 17:41: POC Glucose 286 H 11/03/23 21:30: POC Glucose 281 H 11/04/23 02:30: APTT > 200.0 H* 11/04/23 03:45: WBC 13.2 H, RBC 2.50 L, Hgb 7.3 L, Hct 21.1 L, MCV 84.4 D, MCH 29.2, MCHC 34.6 D, RDW Std Deviation 61.7 H, RDW Coeff of Deep 20.1 H, Plt Count 197, MPV 10.5, Immature Gran % (Auto) 0.800, Neut % (Auto) 89.1 H, Lymph % ( Auto) 3.9 L, [place] % (Auto) 6.0, Eos % (Auto) 0.0, Baso % (Auto) 0.2, Absolute Neuts (auto) 11.8 H, Absolute Lymphs (auto) 0.51 L, Nucleated RBC % 0.2, Differential Comment S, Anisocytosis 3+, Sodium 140, Potassium 2.2 L*, Chloride 99, Carbon Dioxide 22.0, Anion Gap 19 H, BUN 116 H*, Creatinine 5.65 H, Estim Creat Clear Calc 7.28, Est GFR (MDRD) Af Amer 9 L, Est GFR (MDRD) Non-Af 8 L, BUN/Creatinine Ratio 20.5 H, Glucose 307 H, Calcium 6.7 L, Total Bilirubin 0.30, AST 53 H, ALT 17, Alkaline Phosphatase 70, Total Protein 5.5 L, Albumin 2.1 L, Globulin 3.4, Albumin/Globulin Ratio 0.6 L 11/04/23 05:20: Random Vancomycin 25.2 H 11/04/23 06:09: POC Glucose 293 H Micro: Microbiology 11/02/23 21:00 Urine, Catheterized Urine Culture - Preliminary Gram negative bessie GNR lactose quality control auditor Gram positive organism 11/03/23 00:00 Sputum, Tracheal Aspirate Gram Stain - Final 11/02/23 21:00 Urine Catheter - Maguire Legionella Antigen - Final 11/02/23 21:00 Urine Catheter - Maguire Streptococcus pneumoniae Antigen (M - Final 11/02/23 21:00 Mucosa - Nasopharyngeal SARS-CoV-2, Influenza & RSV (PCR) - Final Radiography Diagnostic Testing: Radiology Impression Chest X-Ray 11/03/23 04:15 IMPRESSION: 1. No suspicious infiltrates. 2. Adequately positioned endotracheal and enteric tube. 3. Standard PA and lateral views are suggested when clinically feasible to evaluate for subtle nodules versus artifacts. Electronically Signed: Dorothea Jane MD at 8:46 EST , Chest X-Ray 11/03/23 05:45 IMPRESSION: Well-positioned endotracheal and enteric tubes. Otherwise stable chest. Electronically Signed: Dorothea Jane MD at 7:21 EST , Echocardiogram 11/03/23 07:19 Interpretation Summary The estimated ejection fraction is 65-70 %. Mild concentric left ventricular hypertrophy. Severe mitral annular calcification. The mitral valve chordae are thickened and/or calcified. Mild aortic stenosis. Mild (1+) aortic valve insufficiency. Ordering Physician: Renee Nicole Referring Physician: Namita Hassan M.D. Performed By: Emy Carlson RDCS Chest X-Ray 11/03/23 14:35 IMPRESSION: Satisfactory appearance of right PICC. Electronically Signed: Doretha Nielsen MD at 14:52 EST , Physical Exam Const Constitutional Narrative: Intubated and mechanically ventilated. No ventilator dyssynchrony. HEENT HEENT Narrative: Pupils are minimally responsive. Mouth: endotracheal tube in place and OG tube in place Eyes conjunctivae normal Neck supple General: trachea midline Chest inspection of chest normal Resp normal respiratory effort Auscultation: Negative for rales, rhonchi or wheezes Cardio S1 normal heart sound and S2 normal heart sound Rhythm: abnormal rhythm GI normal to inspection, nondistended, normoactive bowel sounds Extremity no clubbing, cyanosis or edema Skin no rashes or lesions noted Neuro Neuro Narrative: Neurologically unchanged from previous. The patient remains off of all forms of sedation. She is nonresponsive to verbal and noxious stimulation. Charges/Coding Procedures Hospitalists Procedures: [id number] Critical Care 1st Hr
[2023-11-04] MEDS: levETIRAcetam IV 500 MG in 0.9% Normal Saline (100mL Bag) 100 ML 400 MG IV (09:17)
[2023-11-04] MEDS: Chlorhexidine 15 ML PO (09:18)
[2023-11-04] MEDS: Pantoprazole Sodium 40 MG in 0.9% Normal Saline (100mL MB+) 100 ML 330 MG IV (09:46)
[2023-11-04] MEDS: Norepinephrine 8 MG in 0.9% Normal Saline (250mL Bag) 242 ML 9.40000000000000036 MG CONT INF (10:34)
[2023-11-04] MEDS: Piperacil/Tazobactam 3.375 GM in 0.9% Normal Saline (50mL MB+) 50 ML IV (10:35)
--- NOTE | 2023-11-04 11:24 | PCM.PN.REN ---
Subjective Subjective Came over to follow-up on acute kidney injury. Patient remains in ICU setting, she is on ventilator, FiO2 30%, PEEP of 5. No pressors, blood pressure stable. Has Maguire catheter in, producing large amount of urine. Not waking up Objective Data Objective Data Vital Signs: Vital Signs Temp Pulse Resp BP Pulse Ox O2 Del Method FiO2 98.1 F 99 16 149/69 H 100 Mechanical Ventilator 30 11/04/23 08:00 11/04/23 11:17 11/04/23 11:17 11/04/23 11:00 11/04/23 11:17 11/04/23 11:00 11/04/23 11:17 Oxygen Delivery Method Mechanical Ventilator Weight: 72.3 kg Body Mass Index (BMI) 31.1 Intake & Output: Intake and Output for Last 24 Hours 11/02/23 11/03/23 11/04/23 23:59 23:59 23:59 Intake Total 1999 4824.28 / 4824.28 2379.94 / 2379.94 Output Total 100 / 400 600 / 600 Balance 1999 4724.28 / 4424.28 1779.94 / 1779.94 Medical Nutrition Assessment Dietitian: Malnutrition Criteria Met Start: 11/03/23 14:20 Freq: Status: Active Protocol: Document 11/04/23 10:14 AG (Rec: 11/04/23 10:15 AG Desktop) Nutrition Malnutrition Evidence of Malnutrition Exists Yes Malnutrition (severe): Chronic Evidenced By Suboptimal Energy Intake ( Severe),Weight Loss (Severe) Intake Problem Inadequate Oral Intake Etiology related to intubated state Signs/Symptoms as evidenced by NPO Status Active Problem Clinical Problem Chronic Disease or Condition Related Malnutrition Etiology severe, chronic malnutrition related to inadequate energy intake Signs/Symptoms as evidenced by estimated PO intake meeting <75% of estimated energy needs > 3 months, unintentional wt loss of 22% < 6 months Status Active Problem Recommendation Dietitian Recommendations/Changes NPO while intubated. No TF today per Dr. Tai. Will provide enteral nutrition support recommendations pending further determination of POC. Lab / Micro Data Attestation: I reviewed the patient's lab results. 11/04/23 03:45 11/04/23 03:45 Labs: Laboratory Results - last 24 hr 11/03/23 12:21: POC Glucose 249 H 11/03/23 15:15: Sodium 139, Potassium 3.1 L, Chloride 104, Carbon Dioxide 16.0 L, BUN 128 H*, Creatinine 6.69 H, Estim Creat Clear Calc 6.04, Est GFR (MDRD) Af Amer 8 L, Est GFR (MDRD) Non-Af 6 L, BUN/Creatinine Ratio 19.1, Glucose 315 H, Calcium 7.2 L, Phosphorus 3.8, Albumin 2.4 L 11/03/23 17:15: APTT > 200.0 H* 11/03/23 17:41: POC Glucose 286 H 11/03/23 21:30: POC Glucose 281 H 11/04/23 02:30: APTT > 200.0 H* 11/04/23 03:45: WBC 13.2 H, RBC 2.50 L, Hgb 7.3 L, Hct 21.1 L, MCV 84.4 D, MCH 29.2, MCHC 34.6 D, RDW Std Deviation 61.7 H, RDW Coeff of Deep 20.1 H, Plt Count 197, MPV 10.5, Immature Gran % (Auto) 0.800, Neut % (Auto) 89.1 H, Lymph % (Auto) 3.9 L, [place] % (Auto) 6.0, Eos % (Auto) 0.0, Baso % (Auto) 0.2, Absolute Neuts (auto) 11.8 H, Absolute Lymphs (auto) 0.51 L, Nucleated RBC % 0.2, Differential Comment S, Anisocytosis 3+, Sodium 140, Potassium 2.2 L*, Chloride 99, Carbon Dioxide 22.0, Anion Gap 19 H, BUN 116 H*, Creatinine 5.65 H, Estim Creat Clear Calc 7.28, Est GFR (MDRD) Af Amer 9 L, Est GFR (MDRD) Non-Af 8 L, BUN/Creatinine Ratio 20.5 H, Glucose 307 H, Calcium 6.7 L, Total Bilirubin 0.30, AST 53 H, ALT 17, Alkaline Phosphatase 70, Total Protein 5.5 L, Albumin 2.1 L, Globulin 3.4, Albumin/Globulin Ratio 0.6 L 11/04/23 05:20: Random Vancomycin 25.2 H 11/04/23 06:09: POC Glucose 293 H Micro: Microbiology 11/03/23 00:00 Sputum, Tracheal Aspirate Gram Stain - Final 11/03/23 00:00 Sputum, Tracheal Aspirate Respiratory Culture - Preliminary Gram negative bessie Staphylococcus aureus 11/02/23 21:00 Urine, Catheterized Urine Culture - Preliminary Morganella morganii sp sibonii GNR lactose manager corporate marketing 11/02/23 21:00 Urine Catheter - Maguire Legionella Antigen - Final 11/02/23 21:00 Urine Catheter - Maguire Streptococcus pneumoniae Antigen (M - Final 11/02/23 21:00 Mucosa - Nasopharyngeal SARS-CoV-2, Influenza & RSV (PCR) - Final ABG Data Attestation: I personally reviewed and interpreted this ABG as follows: Radiography Diagnostic Testing: Radiology Impression Echocardiogram 11/03/23 07:19 Interpretation Summary The estimated ejection fraction is 65-70 %. Mild concentric left ventricular hypertrophy. Severe mitral annular calcification. The mitral valve chordae are thickened and/or calcified. Mild aortic stenosis. Mild (1+) aortic valve insufficiency. Ordering Physician: Renee Nicole Referring Physician: Namita Hassan M.D. Performed By: Emy Carlson RDCS Chest X-Ray 11/03/23 14:35 IMPRESSION: Satisfactory appearance of right PICC. Electronically Signed: Doretha Nielsen MD at 14:52 EST , Rhythm Strip Rate: 69 Physical Exam Narrative Elderly female who is unresponsive, orally intubated and on a ventilator Skin with multiple bruises Lungs with rhonchi Heart is regular without significant murmur rub Abdomen appears to be soft, has bowel sounds, NG tube with low intermittent suction No edema Assessment & Plan Assessment/Plan (1) Acute kidney failure: QUALIFIERS: Acute renal failure type: with acute tubular necrosis Qualified Code(s): N17.0 - Acute kidney failure with tubular necrosis PLAN: Her kidney function appears to be getting better with volume expansion, creatinine is down so is potassium with correction of pH. No dialysis indicated at this point (2) Dehydration: PLAN: Getting better (3) Lactic acidosis: PLAN: Bicarb is up to 22. Suggest stopping bicarb, replace with maintenance IV while n.p.o. Capacity Legal Golf Course Keeper Reflex Medical hold order details:: IF a medical hold is selected below, a suggested order for a MEDICAL HOLD will reflex upon signing the document. Next of kin: [place] law dictates a PRIORITY LIST for identifying legal decision-maker/legal next of kin in the following order (LNOK): 1st: The patient?s legal guardian, if any 2nd: The patient's spouse (if status is questionable, consult Risk Management) 3rd: The patient?s adult child(jasvir) (majority, if multiple children) 4th: The patient?s parents 5th: The patient?s adult siblings (majority, if multiple children siblings)
[2023-11-04 12:37] LABS: Bedside Glucose 207 mg/dL (74-106)
[2023-11-04 13:16] LABS: Anion Gap 15 (5-15); BUN 107 mg/dL (7-18); Calcium,Total 7.6 mg/dL (8.5-10.1); Chloride 102 mmol/L (98-107); Creatinine, Serum 5.34 mg/dL (0.55-1.02); EST Glomerular Filtration Rate 8 mL/min (>60); Est Glom Filt Rate - Afr Amer 10 mL/min (>60); Estimated Creatinine Clearance 7.71 ml/min; Glucose 227 mg/dL (74-106); Potassium 3.6 mmol/L (3.5-5.1); Sodium Level 141 mmol/L (136-145)
[2023-11-04] MEDS: Morphine 2 MG/ML Syringe IV ×3 (15:13→23:35)
[2023-11-04] MEDS: LORazepam 2 MG/ML Syringe IV (15:13)
--- NOTE | 2023-11-04 15:15 | NURSING ---
Patient terminally extubated, comfort medications given. Family at bedside.
--- NOTE | 2023-11-04 15:32 | CHAPLAIN ---
Type of Pastoral Visit ___ Initial Visit ___ Follow-up Visit ___ On-call Visit ___ General Patient Visit ___ Spiritual Assessment _x__ Family Conference _x__ Bereavement ___ Rapid Response ___ Code Blue ___ Other (describe below) Pastoral Care Referral From ___ Patient ___ Family _x__ Nurse ___ Physician ___ Product Specialist ___ Compressor House Operator _x__ Other (describe below) Sacrament/Intervention _x__ Active listening ___ Anointing ___ Mu-Ism ___ Bereavement ___ Communion ___ Yeny exploration ___ _x__ Life review _x__ Prayer ___ Reconciliation ___ Sacrament of Sick _x__ Supportive presence ___ Wedding ___ Other (describe below) Pastoral Comments both RN and RT separately approach this doctorate of chiropractic and refer need of support to family member of this patient; pt will be extubated at timing determined by evan Zuleta; entered room to meet son and asked about his mother and how he is managing this situation; pt is unable to speak and does not appear to have any responses to audible or tactal; son Song is expressive of his feelings and his thoughts; supportive presence and much time given to Song to give life review and his concerns about end of life for mother; Song states that other children of patient are not able or willing to make decisions for pt and thus he is acting on the wishes of his mother because she would not want this ; pt is not a member of a catholic per report of the son but he welcomes a prayer to be spoken for the pt at this time; son speaks of his own spiritual nature and asks for support in this time; provided son with coffee and gave time to listen and console son; will return to pt room when time comes for extubation to support the son
--- NOTE | 2023-11-04 15:57 | CASEMGMT ---
Song has chosen to have patient terminally extubated. Song was upset and not sure what to do about his brother Julio. Julio lives with patient and takes care of her. Song said Julio is going to be upset when he finds out about patient. Song said Julio has said in the past that if patient goes he would kill himself. Song said he doesn't know what to do. SOFIE told Song CARRIZALES was going to think this over and will get back to him. SOFIE spoke with Song and provided him with the following information: [facility]/crisis, 988 suicide hotline, pamphlet on [employer] of [employer], and [facility] housing assistance program. SOFIE explained to Song that once he talks with Julio SOFIE is going to call crisis and have them check on Julio. SOFIE told Song if he is concerned about Julio doing something to harm himself when he tells him then he should call 911 or crisis. SOFIE told Song family will need to continue to check on Julio. Song verbalized understanding. SOFIE will contact crisis in the am to check on Julio. SOFIE will also make a referral to Board of Developmental [employer]abilities for Julio. Monalisa Scott NURSE OBGYN NELIA
--- NOTE | 2023-11-04 16:05 | CHAPLAIN ---
Type of Pastoral Visit ___ Initial Visit _x__ Follow-up Visit ___ On-call Visit ___ General Patient Visit ___ Spiritual Assessment ___ Family Conference _x__ Bereavement ___ Rapid Response ___ Code Blue ___ Other (describe below) Pastoral Care Referral From ___ Patient _x__ Family ___ Nurse ___ Physician ___ Transition Teacher ___ Flag Decorator ___ Other (describe below) Sacrament/Intervention ___ Active listening ___ Anointing ___ Religion ___ Bereavement ___ Communion ___ Yeny exploration ___ ___ Life review ___ Prayer ___ Reconciliation ___ Sacrament of Sick _x__ Supportive presence ___ Wedding ___ Other (describe below) Pastoral Comments patient has been extubated; granddaughter has arrived and is present in the room; son and granddaughter are standing at the bed as pt slowly but continues to breath; presence and offer of support given again; family members express thanks for the support but have no specific requests at this time; family is appropriate in their grief process
--- NOTE | 2023-11-04 18:14 | PN.HOSP_ITS ---
Reason for Visit Reason for Visit: Diagnoses Sepsis, unspecified organism (11/03/23) Dehydration (11/03/23) Acidosis, unspecified (11/03/23) Metabolic encephalopathy (11/03/23) Acute respiratory failure with hypoxia (11/03/23) Respiratory failure, unspecified, unspecified whether with hypoxia or hypercapnia (11/03/23) Acute kidney failure with tubular necrosis (11/03/23) Acute kidney failure, unspecified (11/03/23) Severe sepsis with septic shock (11/03/23) Other specified abnormal findings of blood chemistry (11/03/23) Subjective Subjective Patient evaluated in the a.m., not responding purposefully to exam, elevated family for further decision making Objective Data Objective Data Vital Signs: Vital Signs Temp Pulse Resp BP Pulse Ox O2 Del Method FiO2 98.9 F 111 H 1 L 138/62 H 99 Room Air 30 11/04/23 13:00 11/04/23 15:15 11/04/23 15:15 11/04/23 15:00 11/04/23 15:00 11/04/23 15:15 11/04/23 15:00 Oxygen Delivery Method Room Air Weight: 72.3 kg Body Mass Index (BMI) 31.1 Intake & Output: Intake and Output for Last 24 Hours 11/02/23 11/03/23 11/04/23 23:59 23:59 23:59 Intake Total 1999 4824.28 / 4824.28 2445.52 / 2445.52 Output Total 100 / 400 750 / 750 Balance 1999 4724.28 / 4424.28 1695.52 / 1695.52 Medical Nutrition Assessment Dietitian: Malnutrition Criteria Met Start: 11/03/23 14:20 Freq: Status: Active Protocol: Document 11/04/23 10:14 AG (Rec: 11/04/23 10:15 AG Desktop) Nutrition Malnutrition Evidence of Malnutrition Exists Yes Malnutrition (severe): Chronic Evidenced By Suboptimal Energy Intake ( Severe),Weight Loss (Severe) Intake Problem Inadequate Oral Intake Etiology related to intubated state Signs/Symptoms as evidenced by NPO Status Active Problem Clinical Problem Chronic Disease or Condition Related Malnutrition Etiology severe, chronic malnutrition related to inadequate energy intake Signs/Symptoms as evidenced by estimated PO intake meeting <75% of estimated energy needs > 3 months, unintentional wt loss of 22% < 6 months Status Active Problem Recommendation Dietitian Recommendations/Changes NPO while intubated. No TF today per Dr. Tai. Will provide enteral nutrition support recommendations pending further determination of POC. Lab / Micro Data 11/04/23 03:45 11/04/23 12:20 Labs: Laboratory Results - last 24 hr 11/03/23 17:15: APTT > 200.0 H* 11/03/23 21:30: POC Glucose 281 H 11/04/23 02:30: APTT > 200.0 H* 11/04/23 03:45: WBC 13.2 H, RBC 2.50 L, Hgb 7.3 L, Hct 21.1 L, MCV 84.4 D, MCH 29.2, MCHC 34.6 D, RDW Std Deviation 61.7 H, RDW Coeff of Deep 20.1 H, Plt Count 197, MPV 10.5, Immature Gran % (Auto) 0.800, Neut % (Auto) 89.1 H, Lymph % (Auto) 3.9 L, [place] % (Auto) 6.0, Eos % (Auto) 0.0, Baso % (Auto) 0.2, Absolute Neuts (auto) 11.8 H, Absolute Lymphs (auto) 0.51 L, Nucleated RBC % 0.2, Differential Comment S, Anisocytosis 3+, Sodium 140, Potassium 2.2 L*, Chloride 99, Carbon Dioxide 22.0, Anion Gap 19 H, BUN 116 H*, Creatinine 5.65 H, Estim Creat Clear Calc 7.28, Est GFR (MDRD) Af Amer 9 L, Est GFR (MDRD) Non-Af 8 L, BUN/Creatinine Ratio 20.5 H, Glucose 307 H, Calcium 6.7 L, Total Bilirubin 0.30, AST 53 H, ALT 17, Alkaline Phosphatase 70, Total Protein 5.5 L, Albumin 2.1 L, Globulin 3.4, Albumin/Globulin Ratio 0.6 L 11/04/23 05:20: Random Vancomycin 25.2 H 11/04/23 06:09: POC Glucose 293 H 11/04/23 12:11: POC Glucose 207 H 11/04/23 12:20: Sodium 141, Potassium 3.6, Chloride 102, Carbon Dioxide 24.0, Anion Gap 15, BUN 107 H*, Creatinine 5.34 H, Estim Creat Clear Calc 7.71, Est GFR (MDRD) Af Amer 10 L, Est GFR (MDRD) Non-Af 8 L, BUN/Creatinine Ratio 20.0, Glucose 227 H, Calcium 7.6 L Micro: Microbiology 11/03/23 00:00 Sputum, Tracheal Aspirate Gram Stain - Final 11/03/23 00:00 Sputum, Tracheal Aspirate Respiratory Culture - Preliminary Gram negative bessie Staphylococcus aureus 11/02/23 21:00 Urine, Catheterized Urine Culture - Preliminary Morganella morganii sp sibonii GNR lactose computer clerk 11/02/23 21:00 Urine Catheter - Maguire Legionella Antigen - Final 11/02/23 21:00 Urine Catheter - Maguire Streptococcus pneumoniae Antigen (M - Final 11/02/23 21:00 Mucosa - Nasopharyngeal SARS-CoV-2, Influenza & RSV (PCR) - Final Rhythm Strip Rate: 69 Physical Exam Narrative General: Intubated but not sedated HEENT: Atraumatic, normocephalic Eyes: Eyes closed, no spontaneous opening Neck: Supple Respiratory: Mechanically ventilated Cardiovascular: Regular rate GI:nondistended Musculoskeletal: not moving extremities spontaneously Neuro: Patient not meaningfully reacting Skin: No rashes appreciated Psych: Unable to cooperate Assessment & Plan Assessment/Plan (1) Sepsis with encephalopathy and septic shock: QUALIFIERS: Sepsis type: sepsis due to unspecified organism Qualified Code(s): A41.9 - Sepsis, unspecified organism; R65.21 - Severe sepsis with septic shock; G93.41 - Metabolic encephalopathy (2) Respiratory failure: QUALIFIERS: Chronicity: acute Respiratory failure complication: hypoxia Qualified Code(s): J96.01 - Acute respiratory failure with hypoxia (3) Acute kidney failure: QUALIFIERS: Acute renal failure type: with acute tubular necrosis Qualified Code(s): N17.0 - Acute kidney failure with tubular necrosis (4) Lactic acidosis: (5) Elevated troponin: (6) Dehydration: PLAN: Plan #Seizure -Patient with seizure activity this morning, neurology consulted, presently having EEG, seizure precautions -As needed Ativan -11/04: Family opted for terminal extubation and comfort care #Sepsis with septic shock and septic encephalopathy evidenced by core temperature of 90.8 ?F with hypotension of 83/25 mmHg present on admission, leukocytosis of 11.4, lactic acidosis of 4.2 mmol/L present on admission and altered mental status with agonal respirations requiring intubation and mech anical ventilation with CT evidence of suspected colitis with ?SMA stenosis - Admit to ICU for treatment under the sepsis protocol. Proceed with full fluid bolus and serialize lactates to document response to treatment. Continue broad- spectrum antibiotics with IV vancomycin and IV Zosyn and await culture and sensitivity data to potentially narrow antibiotic spectrum. Give Tylenol as needed pain or fever. PICC line has been ordered in the a.m. Finally, we will consult the conditioner tender on-call and the vascular surgeon on-call to see this patient on rounds in the a.m. for further recommendations with help appreciated in advance. -11/03: On Zosyn and vancomycin, Lactate improved with fluids and antibiotics, follow cultures, conditioner tender consulted, vascular surgery -11/04: Family opted for terminal extubation and comfort care #Aspiration pneumonia with severe respiratory and metabolic acidosis with pH of 7.18 present on admission along with urinalysis positive for acute cystitis; without hematuria causing #1 -11/03: Remains intubated in the ICU. -11/04: Family opted for terminal extubation and comfort care #Severe acute kidney injury with evidence of hyaline casts consistent with suspe cted severe acute tubular necrosis due to adverse drug reaction to coadministration of hydrochlorothiazide, Lasix and enalapril in the setting of CKD; stage III compounding #1 & #2 - Vigorously volume resuscitate and recheck BMP in the a.m. to ensure improvement. Hold all potentially nephrotoxic agents including diuretics and ROSALINA inhibitors. Finally, we will consult the manager cardiology on-call see this patient on rounds in the a.m. for further recommendations regarding potential hemodialysis with help appreciated in advance. -11/03: Presented with kidney failure, nephrology consulted, I's and O's, repeat BMP with slight improvement albeit minimal -11/04: Family opted for terminal extubation and comfort care #Elevated initial troponin of 249 pg/mL suspected to be due to to acute kidney injury +/- possible non-STEMI type II in the setting of known coronary artery disease with previous SC - Continue aspirin plus Plavix and serialize troponin. Patient was already on Eliquis at time of admission with difficulty experience placing right IJ subsequent hematoma so we will start IV heparin without bolus at this time. Check echocardiogram to evaluate left ventricular ejection fraction. As per my conversation with [facility] hospitalist will make the final decision on possible cardiology consultation of they deem it necessary with her second troponin the same as the first at 266 pg/mL. -11/03: Continue heparin, troponin flat, depending on echo in progress will consider cardiology -11/04: Family opted for terminal extubation and comfort care #Hypoalbuminemia of 2.5 g/dL present on admission suspicious for protein-calorie malnutrition - Check prealbumin to confirm suspicion. -11/03: Prealbumin 14.3 -11/04: Family opted for terminal extubation and comfort care #Essential hypertension; on HCTZ, Lasix and enalapril - Hold all scheduled antihypertensives and avoid potentially nephrotoxic agents. -11/03: Continue holding this -11/04: Family opted for terminal extubation and comfort care #Hyperlipidemia - Resume statin and check lipid profile this admission in light of #4. -11/04: Family opted for terminal extubation and comfort care #Overweight; with BMI of 29.6 this admission - Weight loss will eventually be recommended if patient is able to make a meaningful recovery. Check TSH. -11/04: Family opted for terminal extubation and comfort care #Diabetes mellitus type 2; of unknown control on metformin - Hold metformin with lactic acidosis of 4.2 mmol/L present on admission. Fingerstick blood sugar every 6 hours with minimal sliding scale insulin. -11/04: Family opted for terminal extubation and comfort care #Diabetic neuropathy - Stable. Continue supportive care. #History of CVA - Noted. #Chronic dementia - Noted. # Paroxysmal atrial fibrillation; on apixaban - Patient currently in normal sinus rhythm. Hold apixaban and give IV heparin without bolus in light of #4. -11/04: Family opted for terminal extubation and comfort care #History of GI bleed; with previous duodenal ulcer - Noted. Start IV Protonix. -11/04: Family opted for terminal extubation and comfort care #Chronic anemia - Stable. Check daily CBC to ensure continued stability. -11/04: Family opted for terminal extubation and comfort care #Osteoarthritis; with chronic debility causing inability to walk and to independently perform her ADLs - Noted. She will likely require ECF placement if she is able to survive this admission. -11/04: Family opted for terminal extubation and comfort care #DVT prophylaxis - SCDs. Time spent in the patient's overall evaluation,decision-making process, review of diagnostic data, adjustment of management, discussion with other providers, nursing nursing and ancillary staff involved in patient's care documentation, 36 minutes Capacity Legal Workers Compensation Claims Adjuster Reflex Medical hold order details:: IF a medical hold is selected below, a suggested order for a MEDICAL HOLD will reflex upon signing the document. Next of kin: [place] law dictates a PRIORITY LIST for identifying legal decision-maker/legal next of kin in the following order (LNOK): 1st: The patient?s legal guardian, if any 2nd: The patient's spouse (if status is questionable, consult Risk Management) 3rd: The patient?s adult child(jasvir) (majority, if multiple children) 4th: The patient?s parents 5th: The patient?s adult siblings (majority, if multiple children siblings) Charges/Coding Visit Charges Inpatient E&M: 30910 Subs Hosp L2
[2023-11-05] VITALS: BP 98/60; PULSE 96; RESP 15; TEMP 36.2; O2SAT 89
[2023-11-05] MEDS: Morphine 2 MG/ML Syringe IV ×2 (01:43→05:23)
[2023-11-05] MEDS: LORazepam 2 MG/ML Syringe IV (05:23)
[2023-11-05] MEDS: 0.9% Saline Lock 10 ML Syringe IV (05:24)
--- NOTE | 2023-11-05 07:00 | NURSING ---
At 0600, patient's heart rate showed asystole. At that time, two RN's, myself and Pema RN both auscultated for heart sounds for a full minute. Son was at bedside.
--- NOTE | 2023-11-05 07:34 | PCM.DEATH ---
Preliminary Cause of Preliminary Cause of Preliminary Cause of : Septic shock Date of Admission: 11/02/23 Date of : 11/05/23 Principle Diagnosis Problem List: Active and Suspected Problems (Updated 11/03/23 @ 00:[address] Yuri Medrano, DO) Acute alteration in mental status (Acute) Acute kidney failure (Acute) Dehydration (Acute) Elevated troponin (Acute) Lactic acidosis (Acute) Respiratory failure (Acute) Sepsis with encephalopathy and septic shock (Acute) Hospital Course VANIA ANN, is a 78 F with a past medical history of essential hypertension; on HCTZ, Lasix and enalapril, hyperlipidemia, overweight; with BMI of 29.6 this admission, diabetes mellitus type 2; of unknown control on metformin, diabetic neuropathy, history of CVA, chronic dementia, paroxysmal atrial fibrillation; on apixaban, coronary artery disease; status post IL, history of GI bleed; with previous duodenal ulcer, chronic kidney disease; stage III, chronic anemia and osteoarthritis; with chronic debility causing inability to walk and to independently perform her ADLs who presents to [facility] ER 11/02/23 after she was noted to have altered mental status. Upon their arrival the patient was noted to have agonal respirations and was otherwise unresponsive except to sternal rub. Her blood glucose was checked and was noted to be above 100 mg/dL. They stated that her son gave her her pills and then when he checked on her he found her having agonal respirations and not responsive causing him to activate EMS. Apparently she was noted to have vomited with her dentures hanging intermediate out of her mouth noted during her initial survey. Upon arrival in the ER she was noted to have a blood pressure of 83/25 mmHg with a pH of 7.18 with a pCO2 of 19.4 and a pO2 of 235 on a ventilator and AC mode with a tidal volume of 400 cc with an FiO2 of 40% with 5 of PEEP and a respiratory rate of 16 complicated by laboratory evidence of leukocytosis of 11.4 present on admission with a UA positive for acute cystitis; without hematuria but with evidence of hyaline casts consistent with suspected ATN causing severe acute renal failure in the setting of stage III chronic kidney disease with a serum creatinine of 7.81 mg/dL and a BUN of 153 mg/dL (up from her baseline serum creatinine of 1.73 mg/dL and a BUN of 54 mg/dL in July 2023) suspected to be due to adverse drug reaction to multiple diuretics and ROSALINA inhibitor compounded by lactic acidosis of 4.2 mmol/L present on admission with an elevated initial troponin of 249 pg/mL suspected to be due to severe acute kidney injury +/- possible non-STEMI type II and she was then admitted to the ICU for treatment under the sepsis protocol. Patient diagnosed with suspected sepsis, renal failure, elevated troponin suspected to be demand in nature. Patient was treated but was not having clinically meaningful recovery, did have seizure activity as well and was seen by neurology who recommended transfer for continuous EEG and MRI at 72 hours however ultimately family did not think patient wanted to be kept alive by machines and opted for terminal extubation comfort care. Patient 11/05/2023 Assessment & Plan Assessment/Plan (1) Sepsis with encephalopathy and septic shock: QUALIFIERS: Sepsis type: sepsis due to unspecified organism Qualified Code(s): A41.9 - Sepsis, unspecified organism; R65.21 - Severe sepsis with septic shock; G93.41 - Metabolic encephalopathy (2) Respiratory failure: QUALIFIERS: Chronicity: acute Respiratory failure complication: hypoxia Qualified Code(s): J96.01 - Acute respiratory failure with hypoxia (3) Acute kidney failure: QUALIFIERS: Acute renal failure type: with acute tubular necrosis Qualified Code(s): N17.0 - Acute kidney failure with tubular necrosis (4) Lactic acidosis: (5) Elevated troponin: (6) Dehydration: PLAN: Plan #Seizure -Patient with seizure activity this morning, neurology consulted, presently having EEG, seizure precautions -As needed Ativan -11/04: Family opted for terminal extubation and comfort care #Sepsis with septic shock and septic encephalopathy evidenced by core temperature of 90.8 ?F with hypotension of 83/25 mmHg present on admission, leukocytosis of 11.4, lactic acidosis of 4.2 mmol/L present on admission and altered mental status with agonal respirations requiring intubation and mechanical ventilation with CT evidence of suspected colitis with ?SMA stenosis - Admit to ICU for treatment under the sepsis protocol. Proceed with full fluid bolus and serialize lactates to document response to treatment. Continue broad-spectrum antibiotics with IV vancomycin and IV Zosyn and await culture and sensitivity data to potentially narrow antibiotic spectrum. Give Tylenol as needed pain or fever. PICC line has been ordered in the a.m. Finally, we will consult the content specialist on-call and the vascular surgeon on-call to see this patient on rounds in the a.m. for further recommendations with help appreciated in advance. -11/03: On Zosyn and vancomycin, Lactate improved with fluids and antibiotics, follow cultures, content specialist consulted, vascular surgery -11/04: Family opted for terminal extubation and comfort care #Aspiration pneumonia with severe respiratory and metabolic acidosis with pH of 7.18 present on admission along with urinalysis positive for acute cystitis; without hematuria causing #1 -11/03: Remains intubated in the ICU. -11/04: Family opted for terminal extubation and comfort care #Severe acute kidney injury with evidence of hyaline casts consistent with suspected severe acute tubular necrosis due to adverse drug reaction to coadministration of hydrochlorothiazide, Lasix and enalapril in the setting of CKD; stage III compounding #1 & #2 - Vigorously volume resuscitate and recheck BMP in the a.m. to ensure improvement. Hold all potentially nephrotoxic agents including diuretics and ROSALINA inhibitors. Finally, we will consult the taffy candy maker on-call see this patient on rounds in the a.m. for further recommendations regarding potential hemodialysis with help appreciated in advance. -11/03: Presented with kidney failure, nephrology consulted, I's and O's, repeat BMP with slight improvement albeit minimal -11/04: Family opted for terminal extubation and comfort care #Elevated initial troponin of 249 pg/mL suspected to be due to to acute kidney injury +/- possible non-STEMI type II in the setting of known coronary artery disease with previous [place] - Continue aspirin plus Plavix and serialize troponin. Patient was already on Eliquis at time of admission with difficulty experience placing right IJ subsequent hematoma so we will start IV heparin without bolus at this time. Check echocardiogram to evaluate left ventricular ejection fraction. [facility] final decision on possible cardiology consultation of they deem it necessary with her second troponin the same as the first at 266 pg/mL. -11/03: Continue heparin, troponin flat, depending on echo in progress will consider cardiology -11/04: Family opted for terminal extubation and comfort care #Hypoalbuminemia of 2.5 g/dL present on admission suspicious for protein-calorie malnutrition - Check prealbumin to confirm suspicion. -11/03: Prealbumin 14.3 -11/04: Family opted for terminal extubation and comfort care #Essential hypertension; on HCTZ, Lasix and enalapril - Hold all scheduled antihypertensives and avoid potentially nephrotoxic agents. -11/03: Continue holding this -11/04: Family opted for terminal extubation and comfort care #Hyperlipidemia - Resume statin and check lipid profile this admission in light of #4. -11/04: Family opted for terminal extubation and comfort care #Overweight; with BMI of 29.6 this admission - Weight loss will eventually be recommended if patient is able to make a meaningful recovery. Check TSH. -11/04: Family opted for terminal extubation and comfort care #Diabetes mellitus type 2; of unknown control on metformin - Hold metformin with lactic acidosis of 4.2 mmol/L present on admission. Fingerstick blood sugar every 6 hours with minimal sliding scale insulin. -11/04: Family opted for terminal extubation and comfort care #Diabetic neuropathy - Stable. Continue supportive care. #History of CVA - Noted. #Chronic dementia - Noted. # Paroxysmal atrial fibrillation; on apixaban - Patient currently in normal sinus rhythm. Hold apixaban and give IV heparin without bolus in light of #4. -11/04: Family opted for terminal extubation and comfort care #History of GI bleed; with previous duodenal ulcer - Noted. Start IV Protonix. -11/04: Family opted for terminal extubation and comfort care #Chronic anemia - Stable. Check daily CBC to ensure continued stability. -11/04: Family opted for terminal extubation and comfort care #Osteoarthritis; with chronic debility causing inability to walk and to independently perform her ADLs - Noted. She will likely require ECF placement if she is able to survive this admission. -11/04: Family opted for terminal extubation and comfort care #DVT prophylaxis - SCDs. Time spent in the patient's overall evaluation,decision-making process, review of diagnostic data, adjustment of management, discussion with other providers, nursing nursing and ancillary staff involved in patient's care documentation, 36 minutes
== END 2023-11-05 07:05 | DRG 871 ==
LOC: ED 23:11 → ICU 23:26
PROVIDERS: Internal Medicine Critical Care Medicine; Nurse Practitioner Adult Health; Admitting Provider Internal Medicine; Emergency Provider Emergency Medicine; PCP Internal Medicine; Visit Provider Internal Medicine
DX: A41.9 Sepsis, unspecified organism (principal); J69.0 Pneumonitis due to inhalation of food and vomit; J96.01 Acute respiratory failure with hypoxia; N17.0 Acute kidney failure with tubular necrosis; R65.21 Severe sepsis with septic shock; E43 Unspecified severe protein-calorie malnutrition; I21.A1 Myocardial infarction type 2; G93.41 Metabolic encephalopathy; K55.1 Chronic vascular disorders of intestine; E87.4 Mixed disorder of acid-base balance; N30.00 Acute cystitis without hematuria; E11.22 Type 2 diabetes mellitus with diabetic chronic kidney disease; F03.90 Unspecified dementia, unspecified severity, without behavioral disturbance, psychotic disturbance, mood disturbance, and anxiety; N18.30 Chronic kidney disease, stage 3 unspecified; R56.9 Unspecified convulsions; E11.42 Type 2 diabetes mellitus with diabetic polyneuropathy; I48.0 Paroxysmal atrial fibrillation; D63.1 Anemia in chronic kidney disease; I12.9 Hypertensive chronic kidney disease with stage 1 through stage 4 chronic kidney disease, or unspecified chronic kidney disease; K52.9 Noninfective gastroenteritis and colitis, unspecified; E78.5 Hyperlipidemia, unspecified; I25.10 Atherosclerotic heart disease of native coronary artery without angina pectoris; E86.0 Dehydration; E88.09 Other disorders of plasma-protein metabolism, not elsewhere classified; I25.2 Old myocardial infarction; R26.2 Difficulty in walking, not elsewhere classified; M19.90 Unspecified osteoarthritis, unspecified site; B96.4 Proteus (mirabilis) (morganii) as the cause of diseases classified elsewhere; B95.61 Methicillin susceptible Staphylococcus aureus infection as the cause of diseases classified elsewhere; E66.3 Overweight; R53.81 Other malaise; Z66 Do not resuscitate; Z68.29 Body mass index [BMI] 29.0-29.9, adult; Z79.01 Long term (current) use of anticoagulants; Z79.02 Long term (current) use of antithrombotics/antiplatelets; Z79.84 Long term (current) use of oral hypoglycemic drugs; Z79.899 Other long term (current) drug therapy; Z86.73 Personal history of transient ischemic attack (TIA), and cerebral infarction without residual deficits; Z87.19 Personal history of other diseases of the digestive system
CPT/HCPCS: 31500; 31720; 36569; 36600; 51702; 70450; 71045; 74176; 80048; 80053; 80069; 80202; 81001; 82550; 82803; 82962; 83605; 84134; 84484; 85025; 85610; 85730; 87040; 87070; 87077; 87086; 87088; 87186; 87205; 87449; 87631; 93005; 93306; 94002; 94003; 95819; 97802; 97803; 99252; 99285; J7030; J7040; J7050; A4216; C1751; G0463